=== PATIENT | female | born 1955 | race Two or more races ===

== ENCOUNTER 2020-05-04 08:58 | Outpatient (REF) | payer MEDICARE, MEDICAID, SELFPAY ==
--- NOTE | 2020-05-04 09:06 | MM_ITS ---
EXAMINATION: MM SCREENING DIGITAL BREAST TOMOSYNTHESIS, BILATERAL CLINICAL INFORMATION: Screening. Asymptomatic. The lifetime risk of breast cancer based on the Tyrer-Cuzick Model is 4.0%. COMPARISON: Mammography: April 29, 2019 and studies dating back to May 21, 2013 TECHNIQUE: Digital breast tomosynthesis is performed in both the craniocaudal and mediolateral oblique views along with computer-aided detection (CAD). Synthesized 2D images are generated from the tomosynthesis. FINDINGS: The breasts are almost entirely fatty (ACR BI-RADS breast composition Category a). There are no significant masses, abnormal calcifications, or other abnormalities. MM/MM tomosynthesis screening BI IMPRESSION: There are no significant changes from prior study. ASSESSMENT: BI-RADS 1: Negative RECOMMENDATION: Routine annual mammography screening. This patient's information was entered into a reminder system with a target due date for their next mammogram.
== END 2020-05-04 08:59 | disposition home or self-care (01) ==
LOC: HO.MAMMO 08:58
PROVIDERS: PCP Internal Medicine; Visit Provider Internal Medicine
DX: Z12.31 Encounter for screening mammogram for malignant neoplasm of breast (principal)
CPT/HCPCS: 77063; 77067

== ENCOUNTER → 2020-05-11 11:26 | Outpatient (BNVA) | payer MEDICARE, MEDICAID, SELFPAY | PROVIDERS: PCP Internal Medicine; Visit Provider Nurse Practitioner Gerontology | DX: E11.65 Type 2 diabetes mellitus with hyperglycemia (principal); Z79.4 Long term (current) use of insulin; E78.5 Hyperlipidemia, unspecified; I10 Essential (primary) hypertension; E66.9 Obesity, unspecified; Z68.35 Body mass index [BMI] 35.0-35.9, adult | CPT/HCPCS: 82947; 99212 ==

== ENCOUNTER → 2020-05-25 08:15 | Outpatient (BNVA) | payer MEDICARE, MEDICAID, SELFPAY | PROVIDERS: PCP Internal Medicine; Referring Provider Internal Medicine; Visit Provider Internal Medicine Endocrinology, Diabetes & Metabolism | DX: E11.649 Type 2 diabetes mellitus with hypoglycemia without coma (principal); Z79.4 Long term (current) use of insulin; E89.0 Postprocedural hypothyroidism; E21.3 Hyperparathyroidism, unspecified; E55.9 Vitamin D deficiency, unspecified; E78.5 Hyperlipidemia, unspecified; I10 Essential (primary) hypertension; Z85.850 Personal history of malignant neoplasm of thyroid; Z79.899 Other long term (current) drug therapy | CPT/HCPCS: 82947; 99212 ==

== ENCOUNTER 2020-05-25 09:55 | Outpatient (REF) | payer MEDICARE, MEDICAID, SELFPAY ==
[2020-05-25 14:02] LABS: Hematocrit 36.5 % (37-47); Hemoglobin 10.3 g/dl (12.0-16.0); Mean Corpuscular HGB Conc 28.2 g/dl (31.0-35.0); Mean Corpuscular Hemoglobin 18.2 pg (27.0-33.0); Mean Platelet Volume 11.1 fL (9.4-12.3); Platelet Count 394 X10*3/uL (160-400); Red Blood Count 5.67 X10*6/uL (4.20-5.50); Red Cell Distribution Width 16.9 % (11.0-16.0); White Blood Count 8.2 X10*3/uL (4.8-10.8)
[2020-05-25 14:05] LABS: Mean Corpuscular Volume 64.4 fL (80-98); PLT ABN DIST 1
[2020-05-25 14:19] LABS: Alanine Aminotransferase 8 U/L (0-31); Albumin Level 3.7 g/dL (3.5-5.0); Alkaline Phosphatase 133 U/L (39-117); Anion Gap 14 (12-20); Aspartate Amino Transferase 14 U/L (5-31); Bilirubin Total 0.3 mg/dL (0.0-1.0); Blood Urea Nitrogen 9 mg/dL (9-16); Calcium 9.3 mg/dL (8.4-10.2); Carbon Dioxide 31 mmol/L (22-29); Chloride 103 mmol/L (96-108); Cholesterol 186 mg/dL; Estimated Glomerular Filt Rate > 60; Glucose Fasting 110 mg/dL (60-99); HDL Cholesterol 41 mg/dL; LDL Cholesterol Calculated 127 mg/dl; Potassium 4.8 mmol/l (3.3-5.1); Sodium 143 mmol/L (135-145); Total Protein 6.9 g/dL (6.5-8.0); Triglycerides 94 mg/dL
[2020-05-25 14:38] LABS: Creatinine Urine 126.19 mg/dL; Microalbum/Creatinine Ratio Ur 12.6 ug/mg cr
[2020-05-25 14:40] LABS: Vitamin B12 372 pg/mL (200-900)
[2020-05-25 14:42] LABS: Free T4 (Free Thyroxine) 1.32 ng/dL (0.71-1.85); Vitamin D 25-OH Total 50.3 ng/mL (>30)
[2020-05-26 14:03] LABS: Calcium (PTHI) 9.5 mg/dL (8.6-10.4); PTHI 32 pg/mL (14-64)
[2020-05-26 20:12] LABS: LDL Cholesterol Direct 139 mg/dL (<100)
[2020-05-29 06:42] LABS: Thyroglobulin Antibody <1 IU/mL (<=1); Thyroglobulin Level <0.1 ng/mL
[2020-05-30 00:47] LABS: VITAMIN D (1,25 OH) D3 29 pg/mL; Vit D (1,25-Dihydroxy) Total 29 pg/mL (18-72); Vitamin D (1,25 OH) D2 <8 pg/mL
[2020-06-01 06:17] LABS: Fructosamine 260 umol/L (205-285)
== END 2020-05-25 09:56 | disposition home or self-care (01) ==
LOC: HO.10HDL 09:55
PROVIDERS: Visit Provider Internal Medicine Endocrinology, Diabetes & Metabolism
DX: C73 Malignant neoplasm of thyroid gland (principal); E21.3 Hyperparathyroidism, unspecified; E55.9 Vitamin D deficiency, unspecified; E11.65 Type 2 diabetes mellitus with hyperglycemia
CPT/HCPCS: 36415; 80053; 80061; 82043; 82306; 82607; 82652; 82985; 83721; 83970; 84432; 84439; 84443; 85027; 86800

== ENCOUNTER → 2020-08-25 09:57 | Outpatient (BNVA) | payer MEDICARE, MEDICAID, SELFPAY | PROVIDERS: PCP Internal Medicine; Visit Provider Internal Medicine Endocrinology, Diabetes & Metabolism | DX: C73 Malignant neoplasm of thyroid gland (principal); E11.65 Type 2 diabetes mellitus with hyperglycemia; E11.649 Type 2 diabetes mellitus with hypoglycemia without coma; Z79.4 Long term (current) use of insulin; E78.5 Hyperlipidemia, unspecified; E89.0 Postprocedural hypothyroidism; E66.9 Obesity, unspecified; E21.3 Hyperparathyroidism, unspecified; E55.9 Vitamin D deficiency, unspecified | CPT/HCPCS: 82947; 99212 ==

== ENCOUNTER 2020-09-07 12:44 | Outpatient (REF) | payer MEDICARE, MEDICAID, SELFPAY ==
[2020-09-07 14:43] LABS: Free T4 (Free Thyroxine) 0.48 ng/dL (0.71-1.85); Thyroid Stimulating Hormone 12.85 uIU/mL (0.32-4.0)
[2020-09-07 14:50] LABS: Alanine Aminotransferase 12 U/L (0-31); Alkaline Phosphatase 118 U/L (39-117); Anion Gap 15 (12-20); Aspartate Amino Transferase 20 U/L (5-31); Bilirubin Total < 0.2 mg/dL (0.0-1.0); Blood Urea Nitrogen 9 mg/dL (9-16); Calcium 9.4 mg/dL (8.4-10.2); Carbon Dioxide 28 mmol/L (22-29); Chloride 104 mmol/L (96-108); Cholesterol 187 mg/dL; Estimated Glomerular Filt Rate 53; Glucose Fasting 184 mg/dL (60-99); HDL Cholesterol 44 mg/dL; LDL Cholesterol Calculated 123 mg/dl; Potassium 4.1 mmol/L (3.3-5.1); Sodium 143 mmol/L (135-145); Total Protein 7.5 g/dL (6.5-8.0); Triglycerides 101 mg/dL
[2020-09-08 11:22] LABS: LDL Cholesterol Direct 128 mg/dL (<100)
== END 2020-09-07 12:45 | disposition home or self-care (01) ==
LOC: HO.LAB 12:44
PROVIDERS: PCP Internal Medicine; Visit Provider Internal Medicine Endocrinology, Diabetes & Metabolism
DX: C73 Malignant neoplasm of thyroid gland (principal)
CPT/HCPCS: 36415; 80053; 80061; 83721; 84439; 84443; 96372

== ENCOUNTER 2020-09-20 12:50 | Outpatient (REF) | payer MEDICARE, MEDICAID, SELFPAY ==
[2020-09-20 15:42] LABS: Thyroid Stimulating Hormone 30.16 uIU/mL (0.32-4.0)
[2020-09-20 15:43] LABS: Free T4 (Free Thyroxine) 0.51 ng/dL (0.71-1.85)
[2020-09-24 07:22] LABS: Thyroglobulin Antibody <1 IU/mL (<=1); Thyroglobulin Level 0.6 ng/mL
== END 2020-09-20 12:51 | disposition home or self-care (01) ==
LOC: HO.LAB 12:50
PROVIDERS: Internal Medicine; PCP Internal Medicine; Visit Provider Internal Medicine Endocrinology, Diabetes & Metabolism
DX: E11.65 Type 2 diabetes mellitus with hyperglycemia (principal); E11.649 Type 2 diabetes mellitus with hypoglycemia without coma; C73 Malignant neoplasm of thyroid gland; I48.91 Unspecified atrial fibrillation; E78.5 Hyperlipidemia, unspecified; I10 Essential (primary) hypertension; E89.0 Postprocedural hypothyroidism; E66.9 Obesity, unspecified; E21.3 Hyperparathyroidism, unspecified; E55.9 Vitamin D deficiency, unspecified; Z79.899 Other long term (current) drug therapy; Z79.4 Long term (current) use of insulin
CPT/HCPCS: 36415; 82947; 84432; 84439; 84443; 86800; 99212

== ENCOUNTER → 2020-10-06 09:48 | Outpatient (BNVA) | payer MEDICARE, MEDICAID, SELFPAY | PROVIDERS: PCP Internal Medicine; Visit Provider Hospitalist | DX: J45.20 Mild intermittent asthma, uncomplicated (principal); J18.9 Pneumonia, unspecified organism; J90 Pleural effusion, not elsewhere classified; I31.3 Pericardial effusion (noninflammatory); Z79.899 Other long term (current) drug therapy | CPT/HCPCS: 99202 ==

== ENCOUNTER → 2020-10-27 10:19 | Outpatient (BNVA) | payer MEDICARE, MEDICAID, SELFPAY | PROVIDERS: PCP Internal Medicine; Visit Provider Hospitalist | DX: J45.20 Mild intermittent asthma, uncomplicated (principal); I31.3 Pericardial effusion (noninflammatory); J18.9 Pneumonia, unspecified organism; J90 Pleural effusion, not elsewhere classified | CPT/HCPCS: 99212 ==

== ENCOUNTER 2020-11-04 12:14 | Outpatient (REF) | payer MEDICARE, MEDICAID, SELFPAY ==
--- NOTE | ~2020-11-04 | XR_ITS ---
EXAMINATION: XR CHEST CLINICAL INFORMATION: Pericardial effusion COMPARISON: Chest 09/18/2018. TECHNIQUE: 2 views of the chest were obtained. FINDINGS: The lungs are well-expanded and clear of acute process. The heart size and pulmonary vascularity is normal. There is moderate spondylosis of dorsal spine. No lytic process. XR/XR chest 2V IMPRESSION: Unremarkable chest exam.
[2020-11-04 14:17] LABS: Thyroid Stimulating Hormone 3.62 uIU/mL (0.32-4.0)
[2020-11-04 14:22] LABS: SARS COV2 IgG Positive (Negative)
[2020-11-04 14:35] LABS: Erythrocyte Sedimentation Rate 23 MM/HR (0-20)
[2020-11-06 14:01] LABS: Anti Nuclear Antibody Screen NEGATIVE (NEGATIVE)
[2020-11-07 17:46] LABS: Cyclic Citrullinated Peptide <16 UNITS
[2020-11-17 23:02] LABS: Angiotensin Converting Enzyme 6 U/L (9-67)
== END 2020-11-04 12:15 | disposition home or self-care (01) ==
LOC: HO.LAB 12:14
PROVIDERS: Internal Medicine Endocrinology, Diabetes & Metabolism; PCP Internal Medicine; Visit Provider Hospitalist
DX: I31.3 Pericardial effusion (noninflammatory) (principal); J18.9 Pneumonia, unspecified organism; J90 Pleural effusion, not elsewhere classified; C73 Malignant neoplasm of thyroid gland; Z20.822 Contact with and (suspected) exposure to COVID-19
CPT/HCPCS: 36415; 71046; 82164; 84443; 85652; 86038; 86039; 86200; 86769

== ENCOUNTER → 2020-11-19 11:20 | Outpatient (BNVA) | payer MEDICARE, MEDICAID, SELFPAY | PROVIDERS: PCP Internal Medicine; Visit Provider Internal Medicine Endocrinology, Diabetes & Metabolism | DX: C73 Malignant neoplasm of thyroid gland (principal); E11.65 Type 2 diabetes mellitus with hyperglycemia; E11.649 Type 2 diabetes mellitus with hypoglycemia without coma; E78.5 Hyperlipidemia, unspecified; I10 Essential (primary) hypertension; E89.0 Postprocedural hypothyroidism; E66.9 Obesity, unspecified; E21.3 Hyperparathyroidism, unspecified; E55.9 Vitamin D deficiency, unspecified; Z79.4 Long term (current) use of insulin | CPT/HCPCS: 82947; 99212 ==

== ENCOUNTER → 2021-03-21 13:06 | Outpatient (REF) | payer MEDICARE, MEDICAID, SELFPAY ==
--- NOTE | 2021-03-21 13:10 | CA_ITS ---
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 Normal LV systolic function 2. Moderately dilated left atrium 3. Mild mitral regurgitation with moderate mitral and calcification 4. Normal RV systolic pressure 5. Trivial pericardial effusion Findings Left Ventricle Normal left ventricular size, thickness, and systolic function. The visually estimated ejection fraction is between 55-60%. Diastolic function is indeterminate on the basis of available data. Right Ventricle The right ventricle was not well visualized. Atria The left atrium is moderately dilated. There is lipomatous hypertrophy of the interatrial septum. Interatrial shunt cannot be excluded. The right atrium was not well visualized. Aortic Valve The aortic valve was not well visualized. There is no aortic valve stenosis. There is no aortic valve regurgitation. Mitral Valve There is mild anterior and moderate posterior mitral leaflet thickening. There is moderate mitral annular calcification. There is mild mitral valve regurgitation. There is no mitral valve stenosis. Pulmonic Valve The pulmonic valve was not well visualized. Tricuspid Valve The tricuspid valve was not well visualized. There is trace tricuspid valve regurgitation. The right ventricular systolic pressure is normal. The right ventricular systolic pressure is 25 mmHg. Normal right atrial pressure. There is no evidence of pulmonary hypertension. Great Vessels The pulmonary artery was not well visualized. There is no dilatation of the ascending aorta. Small plaque is seen in the sino tubular ridge. Venous The inferior vena cava is normal in size and collapses greater than 50% with inspiration. Pericardium/Pleural There is a trivial pericardial effusion. Measurements 2D Linear Measurements IVSd: 1.24 0.6-0.9/0.6-1.0 cm LVIDd: 5.16 3.9-5.3/4.2-5.9 cm LVIDd Index: 2.77 2.4-3.2/2.2-3.1 cm/m2 LVIDs: 3.76 2.0-3.6 cm LVPWd: 1.05 0.7-1.1 cm Ao Root: 2.90 2.1-3.5 cm LA Diam: 4.50 2.7-3.8/3.0-4.0 cm LAIDs Index: 2.42 1.5-2.3 cm/m2 LV Mass: 287.15 67-162/88-224 g LV Mass Index: 154.38 43-95/49-115 g/m2 LVOT Diam: 2.00 3.0+(-)1.3 cm 2D Systolic Function EF 4C: 57.90 >55% EF 2C: 58.40 >55% EF BiP: 57.80 >55% Mitral Valve E'Lateral: 7.62 E'Medial: 6.20 Aortic Valve AoV Pk Rafael: 0.92 AoV Mn Rafael: 0.76 AoV VTI: 0.19 AoV Pk Grad: 3.00 Aov Mn Grad: 2.00 REBEKAH Cont.VTI: 2.07 LVOT LVOT Pk Rafael: 0.66 LVOT Mn Rafael: 0.44 LVOT VTI: 0.13 LVOT Pk Grad: 2.00 LVOT Mn Grad: 1.00 LVOT Diam: 2.00 LVOT Area: 3.14 Diastolic Function E'Medial: 6.20 E' Laterial: 7.62 Right Ventricle TAPSE (mm): 1.93 TVS' Rafael: 9.68 Tricuspid Valve TR Pk Rafael: 2.35 TR Pk Grad: 22.00 RA Press: 3.00 RVSP: 25.00 Great Vessels Aorta Ao Root-2D: 2.90 2.0-3.7 cm Ao Asc: 3.00 2.1-3.4 cm Ao Arch: 2.50 Updated in Other Vendor System with Status of Final Emmanuel Pemberton MD electronically signed on 03/22/2021 9:04:28 AM with status of Final
== END ==
LOC: HO.CARD 13:06
PROVIDERS: Visit Provider Hospitalist
DX: I27.20 Pulmonary hypertension, unspecified (principal); I31.3 Pericardial effusion (noninflammatory); J18.9 Pneumonia, unspecified organism; J90 Pleural effusion, not elsewhere classified
CPT/HCPCS: 93306

== ENCOUNTER 2021-05-27 12:50 | Outpatient (REF) | payer MEDICARE, MEDICAID, SELFPAY | END 2021-05-27 12:51 | disposition home or self-care (01) | LOC: HO.LAB 12:50 | PROVIDERS: PCP Internal Medicine; Visit Provider Internal Medicine | DX: Z20.822 Contact with and (suspected) exposure to COVID-19 (principal) | CPT/HCPCS: C9803; U0003; U0005 ==

== ENCOUNTER → 2021-11-30 10:05 | Outpatient (BNVA) | payer MEDICARE, MEDICAID, SELFPAY | PROVIDERS: PCP Internal Medicine; Visit Provider Internal Medicine Endocrinology, Diabetes & Metabolism | DX: E11.65 Type 2 diabetes mellitus with hyperglycemia (principal); C73 Malignant neoplasm of thyroid gland; Z79.4 Long term (current) use of insulin; Z79.84 Long term (current) use of oral hypoglycemic drugs | CPT/HCPCS: 82947; 83036; 99212 ==

== ENCOUNTER → 2021-12-28 09:57 | Outpatient (BNVA) | payer MEDICARE, MEDICAID, SELFPAY | PROVIDERS: PCP Internal Medicine; Visit Provider Registered Nurse Diabetes Educator | DX: E11.649 Type 2 diabetes mellitus with hypoglycemia without coma (principal) | CPT/HCPCS: 99211 ==

== ENCOUNTER 2022-01-06 22:12 | Emergency (ER) | payer MEDICARE, MEDICAID, SELFPAY ==
--- NOTE | ~2022-01-06 | XR_ITS ---
EXAMINATION: XR KNEE, RIGHT CLINICAL INFORMATION: Pain. COMPARISON: Right knee 11/13/2016 TECHNIQUE: Four views of the right knee. FINDINGS: No fracture. No dislocation. No joint effusion. Tricompartment moderate degenerative joint disease of joint narrowing and marginal bone spurs. Compared to prior study of 2017 no substantial change. XR/XR knee RT 4V IMPRESSION: 1. No acute abnormality. 2. Moderate tricompartment degenerative arthritis.
[2022-01-06 22:15] VITALS: BP 144/82; BP 218/59; PULSE 64; PULSE 66; RESP 18; TEMP 36.4; O2SAT 95; O2SAT 96; BMI 37.8
--- NOTE | 2022-01-06 23:01 | ED.LOWEXIN ---
HPI - Extremity Injury (Lower) General Chief Complaint: Extremity Injury, Lower Stated Complaint: leg pain Time Seen by Provider: 01/06/22 23:00 Source: patient and diplomatic interpreter/translator Mode of arrival: ambulatory History of Present Illness HPI Narrative: 66-year-old female who presents with being it being go and states that she was sitting and went to reposition her leg stating that she twisted her right knee which resulted in significant pain that radiated distal into her ankle. Patient is currently on anticoagulation for underlying thyroid malignancy and otherwise denies any other injuries at this time to the knee and states that it has actually started to feel somewhat better at this time. Related Data Home Medications Medication Instructions Recorded Confirmed alcohol swabs 1 pad topical diabetes mellitus 05/11/20 11/19/20 gabapentin 100 mg capsule 100 mg PO TID 05/11/20 11/30/21 lancets 28 gauge #100 ea 05/11/20 11/19/20 sertraline 25 mg tablet 25 mg PO DAILY 05/11/20 11/19/20 docusate sodium 100 mg capsule 100 mg PO DAILY 05/25/20 11/19/20 (Colace) trazodone 100 mg tablet 100 mg PO BEDTIME sleep 05/25/20 11/19/20 escitalopram oxalate 10 mg tablet 10 mg PO DAILY 08/25/20 11/19/20 albuterol sulfate mg inhalation Q6H 10/06/20 11/19/20 hydroxyzine HCl 25 mg tablet 25 mg PO DAILY 10/06/20 11/19/20 ibuprofen 400 mg tablet 400 mg PO Q6H PRN pain 10/06/20 11/19/20 rivaroxaban 20 mg tablet 20 mg PO DAILY 11/19/20 11/19/20 amiodarone 200 mg tablet 200 mg PO DAILY 11/30/21 11/30/21 apixaban 5 mg tablet (Eliquis) 5 mg PO BID 11/30/21 11/30/21 blood-glucose meter (OneTouch #1 ea 11/30/21 11/30/21 Ultra2 Meter) furosemide 20 mg tablet 20 mg PO DAILY 11/30/21 11/30/21 lancets 33 gauge (OneTouch Delica #100 ea 11/30/21 11/30/21 Lancets) metoprolol succinate 100 mg 100 mg PO DAILY 11/30/21 11/30/21 tablet,extended release 24 hr Previous Rx's Medication Instructions Recorded blood sugar diagnostic (Contour #120 ea 05/05/20 Next Test Strips) lancets 32 gauge (Easy Touch #120 ea 05/05/20 Lancets) lisinopril 10 mg tablet 10 mg PO DAILY 90 days #90 tabs 05/25/20 metoprolol tartrate 50 mg tablet 50 mg PO BID 90 days #180 tabs 05/25/20 pen needle, diabetic 32 gauge x 1 ea subcut DAILY 30 days #30 ea 11/04/20 (Comfort EZ Pen [place]) ezetimibe 10 mg tablet 10 mg PO DAILY 90 days #90 tabs 11/19/20 metformin 500 mg tablet,extended 500 mg PO BID 90 days #180 tabs 11/19/20 release 24 hr blood sugar diagnostic (FreeStyle #100 ea 03/02/21 Lite Strips) blood-glucose meter (FreeStyle #1 ea 03/03/21 Lite Meter) amlodipine 5 mg tablet 5 mg PO DAILY #90 tabs 06/03/21 albuterol sulfate 90 mcg/actuation 2 puff inhalation Q6H PRN for 11/22/21 aerosol inhaler wheezing #8.5 grams dulaglutide 3 mg/0.5 mL 3 mg (0.5 mL) subcut QWEEK 90 days 12/09/21 subcutaneous pen injector #2 mL (Trulicity) insulin degludec 100 unit/mL (3 20 unit (0.2 mL) subcut QAM 90 12/09/21 mL) subcutaneous pen days #18 mL cholecalciferol (vitamin D3) 50 50 mcg PO DAILY #30 caps 12/20/21 mcg (2,000 unit) capsule (D3-2000) levothyroxine 88 mcg tablet 88 mcg PO DAILY 90 days #112 tabs 12/23/21 rosuvastatin 40 mg tablet 40 mg PO DAILY 90 days #90 tabs 12/23/21 Allergies Allergy/AdvReac Type Severity Reaction Status Date / Time empagliflozin Allergy Intermediate ITCHY/RASH Verified 11/30/21 10:12 [From JARDIANCE] JARDIANCE Allergy Intermediate pruritus Uncoded 11/30/21 10:12 Review of Systems Review of Systems: Pertinent positives and negatives as stated in HPI 10 point review of systems is otherwise negative. 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 Mother Arthritis Social History Social History Household Members: None Patient Tobacco Use Status: Never used Tobacco Advance Directives: No Advance Directives Information Provided: No Physical Exam Vital Signs: Vital Signs: Last Vital Signs Temp 97.5 F 01/06/22 22:15 Pulse 56 01/06/22 23:31 Resp 14 01/06/22 23:31 BP 166/74 H 01/06/22 23:31 Pulse Ox 97 01/06/22 23:31 O2 Del Method 01/06/22 23:31 BMI result Body Mass Index 37.8 VITAL SIGNS: Reviewed. GENERAL: Elevated BMI, Well developed, well nourished, in no acute distress. HEAD: Normocephalic/atraumatic, EYES: PERRLA, EOMI EARS: Ext canals without abnormality OROPHARYNX: no oral lesions noted, posterior pharynx clear LUNGS: Normal breath sounds. No adventitious sounds or accessory muscle use. SpO2<97> CARDIOVASCULAR: Regular rate and rhythm without noted murmurs, no JVD or lower extremity edema. ABDOMEN: Soft, non-tender, non-distended with bowel sounds. MUSCULOSKELETAL: No tenderness, deformities, or effusions noted on gross inspection. EXTREMITIES: No cyanosis, clubbing or edema; RIGHT KNEE: No erythema, induration, or swelling noted, there is mild tenderness on palpation over the MCL/LCL but no pain over patellar or within the popliteal fossa. No palpable Farah cyst noted on palpation over the popliteal fossa and otherwise neurovascular is intact distal SKIN: Inspection of the skin reveals no rashes NEUROLOGIC: Alert and oriented x 4. Strength and sensation to light touch were grossly intact x 4. Course Course Course Narrative: 66-year-old female with history and clinical presentation given the acute nature most consistent with mild twisting motion when she attempted to stand. Low clinical suspicion for ruptured Farah cyst and no clinical evidence or suspicion for DVT. Patient was provided with Tylenol, Soto wrap and on review of the x-ray there are no acute findings and instead demonstration of moderate try compartment degenerative arthritis. Patient was informed of all results and discharged home in stable condition and noted to be able to ambulate. Discharge Plan Discharge Clinical Impression: Knee pain, right, Osteoarthritis of right knee Patient Disposition: Home, Self-Care Instructions: Knee Pain (ED), Osteoarthritis (ED) Additional Instructions: 1. Reanudar todos los medicamentos caseros seg?n lo prescrito. 2. Contin?e con Tylenol 1000 mg, por v?a oral, cada 6 horas seg?n sea necesario para controlar el dolor. No exceda los 4000 mg dentro de las 24 horas. 3. Mantenga la venda Soto en simental lugar hasta que simental proveedor de atenci?n primaria lo eval?e nuevamente el lunes por la ma?krish. Regrese a la saima de emergencias si los s?ntomas empeoran. Prescriptions: No Action (DME) Contour Next Test Strips Strip See Rx Instructions .ROUTE .MEDSUPPLY Qty: 120 6RF Rx Instructions: 4 times a day (DME) Easy Touch Lancets 32 gauge misc See Rx Instructions .ROUTE .MEDSUPPLY Qty: 120 6RF Rx Instructions: 4 times a day pen needle, diabetic [Comfort EZ Pen [place]] 32 gauge x 5/32 needle 1 ea subcut DAILY 30 Days Qty: 30 7RF (DME) FreeStyle Lite Strips Strip See Rx Instructions .ROUTE .MEDSUPPLY Qty: 100 11RF Rx Instructions: 4x daily (DME) blood-glucose meter [FreeStyle Lite Meter] Kit See Rx Instructions .Route Qty: 1 0RF Rx Instructions: As directed amlodipine 5 mg tablet 5 mg PO DAILY Qty: 90 1RF albuterol sulfate 90 mcg/actuation HFA aerosol inhaler 2 puff inhalation Q6H PRN (Reason: for wheezing) Qty: 8.5 11RF Trulicity 3 mg/0.5 mL pen injector 3 mg subcut QWEEK 90 Days Qty: 2 4RF Rx Instructions: Dose increased to 3 mg weekly. insulin degludec 100 unit/mL (3 mL) insulin pen 20 unit subcut QAM 90 Days Qty: 18 1RF cholecalciferol (vitamin D3) [D3-2000] 50 mcg (2,000 unit) capsule 50 mcg PO DAILY Qty: 30 8RF rosuvastatin 40 mg tablet 40 mg PO DAILY 90 Days Qty: 90 2RF levothyroxine 88 mcg tablet 88 mcg PO DAILY 90 Days Qty: 112 1RF Rx Instructions: One tablet Sunday through Sunday 1.5 tablets Sundays sertraline 25 mg tablet 25 mg PO DAILY alcohol swabs Pads, Medicated 1 pad topical gabapentin 100 mg capsule 100 mg PO TID (DME) lancets 28 gauge misc See Rx Instructions .ROUTE QID Qty: 100 Rx Instructions: As directed rivaroxaban 20 mg tablet 20 mg PO DAILY docusate sodium [Colace] 100 mg capsule 100 mg PO DAILY trazodone 100 mg tablet 100 mg PO BEDTIME lisinopril 10 mg tablet 10 mg PO DAILY 90 Days Qty: 90 2RF metoprolol tartrate 50 mg tablet 50 mg PO BID 90 Days Qty: 180 2RF Rx Instructions: Needs cardiology visit before more refills given escitalopram oxalate 10 mg tablet 10 mg PO DAILY ezetimibe 10 mg tablet 10 mg PO DAILY 90 Days Qty: 90 2RF metformin 500 mg tablet extended release 24 hr 500 mg PO BID 90 Days Qty: 180 1RF albuterol sulfate 2.5 mg /3 mL (0.083 %) solution for nebulization inhalation Q6H ibuprofen 400 mg tablet 400 mg PO Q6H PRN (Reason: pain) hydroxyzine HCl 25 mg tablet 25 mg PO DAILY metoprolol succinate 100 mg tablet extended release 24 hr 100 mg PO DAILY furosemide 20 mg tablet 20 mg PO DAILY Eliquis 5 mg tablet 5 mg PO BID (DME) blood-glucose meter [Coloraderdamuch Ultra2 Meter] Mis See Rx Instructions Not Applicable DAILY Qty: 1 Rx Instructions: As directed (DME) lancets [OneTouch Delica Lancets] 33 gauge misc See Rx Instructions topical QID Qty: 100 Rx Instructions: As directed amiodarone 200 mg tablet 200 mg PO DAILY Print Language: Peruvian
[2022-01-06 23:31] VITALS: BP 166/74; PULSE 56; RESP 14; O2SAT 97
[2022-01-06] MEDS: Acetaminophen 325 MG TABLET 975 MG PO (23:33)
== END 2022-01-07 00:21 | disposition home or self-care (01) ==
PROVIDERS: Emergency Provider Student in an Organized Health Care Education/Training Program; PCP Student in an Organized Health Care Education/Training Program
DX: M25.561 Pain in right knee (principal); M17.11 Unilateral primary osteoarthritis, right knee; E11.9 Type 2 diabetes mellitus without complications; I10 Essential (primary) hypertension; E78.5 Hyperlipidemia, unspecified; Z79.4 Long term (current) use of insulin
CPT/HCPCS: 73564; 99283; 99284

== ENCOUNTER → 2022-01-11 10:56 | Outpatient (BNVA) | payer MEDICARE, MEDICAID, SELFPAY | PROVIDERS: PCP Student in an Organized Health Care Education/Training Program; Visit Provider Dietitian, Registered | DX: E11.65 Type 2 diabetes mellitus with hyperglycemia (principal); Z79.4 Long term (current) use of insulin; Z71.3 Dietary counseling and surveillance | CPT/HCPCS: 97802 ==

== ENCOUNTER 2022-03-16 08:35 | Outpatient (REF) | payer MEDICARE, MEDICAID, SELFPAY | END 2022-03-16 08:36 | disposition home or self-care (01) | LOC: HO.HOSX 08:35 | PROVIDERS: Visit Provider Physician Assistant | DX: Z13.89 Encounter for screening for other disorder (principal) ==

== ENCOUNTER 2022-04-03 08:44 | Outpatient (REF) | payer MEDICARE, MEDICAID, SELFPAY ==
--- NOTE | ~2022-04-03 | US_ITS ---
EXAMINATION: US SOFT TISSUE HEAD/NECK CLINICAL INFORMATION: Status post thyroidectomy. History of thyroid cancer. COMPARISON: Ultrasound soft tissue 03/17/2019. TECHNIQUE: Ultrasound of the neck soft tissues is performed with high-frequency gamez-scale imaging and color Doppler. FINDINGS: THYROID BED: Prior thyroidectomy. No residual thyroid tissue demonstrated in the thyroid bed. No cystic or solid nodules demonstrated in the thyroid bed. RIGHT NECK SOFT TISSUES: Scattered architecturally normal nodes are present. The nodes show normal fatty hilus, normal cortical thickness, and no cystic change or calcification. No abnormal color-flow. The largest nodes are as follows: Level 3: 0.6 x 0.6 x 0.5 cm. Normal johnny architecture. Previous 1.0 0.2 x 0.8 cm. Level 3: 0.5 x 0.4 x 0.4 cm. Normal johnny architecture. Not seen previously. Level 3: 0.7 x 0.5 x 0.5 cm. Normal johnny architecture. Not seen previously. Level 5A: 1.0 x 0.3 x 0.6 cm. Normal johnny architecture. Previous 0.6 x 0.3 x 0.3 cm. LEFT NECK SOFT TISSUES: Scattered architecturally normal nodes are present. The nodes show normal fatty hilus, normal cortical thickness, and no cystic change or calcification. No abnormal color-flow. The largest nodes are as follows: Level 1B: 0.5 x 0.3 x 0.5 cm. Normal johnny architecture. Not seen previously. Level 2: 0.4 x 0.3 x 0.8 cm. Normal johnny architecture. Previous 1.3 x 0.6 x 1.3 cm. Level 3: 0.7 x 0.3 x 1.1 cm. Normal johnny architecture. Not seen previously. Level 3: 0.9 x 0.6 x 0.9 cm. Normal johnny architecture. Previous 0.9 x 0.5 x 1.0 cm. Level 3: 0.7 x 0.4 x 0.6. Normal johnny architecture. Not seen previously. Level 5B: 1.5 x 0.5 x 1.0 cm. Normal johnny architecture. Previous 0.4 x 0.2 x 0.5 cm. US/US soft tiss head and/or neck IMPRESSION: 1. Total thyroidectomy with no residual thyroid tissue seen. Multiple benign neck lymph nodes. 2. If clinically indicated, further evaluation of the neck soft tissues and nodes may be performed with CT soft tissue neck with intravenous contrast.
[2022-04-03 12:20] LABS: Anion Gap 18 (12-20); Blood Urea Nitrogen 7 mg/dL (9-16); Calcium 9.1 mg/dL (8.4-10.2); Carbon Dioxide 27 mmol/L (22-29); Chloride 101 mmol/L (96-108); Cholesterol 153 mg/dL; Estimated Glomerular Filt Rate > 60; Glucose Random 125 mg/dL (60-115); HDL Cholesterol 45 mg/dL; LDL Cholesterol Calculated 95 mg/dl; Potassium 4.1 mmol/L (3.3-5.1); Sodium 142 mmol/L (135-145); Triglycerides 68 mg/dL
[2022-04-03 12:34] LABS: Free T4 (Free Thyroxine) 1.51 ng/dL (0.71-1.85)
[2022-04-03 12:38] LABS: Microalbum/Creatinine Ratio Ur 7.5 ug/mg cr
[2022-04-03 13:05] LABS: Thyroid Stimulating Hormone 5.82 uIU/mL (0.32-4.0)
[2022-04-04 17:57] LABS: Thyroglobulin Antibodies <1 IU/mL (< or = 1)
[2022-04-06 06:22] LABS: Thyroglobulin Antibody <1 IU/mL (<=1); Thyroglobulin Level 0.1 ng/mL
== END 2022-04-03 08:45 | disposition home or self-care (01) ==
LOC: HO.US 08:44
PROVIDERS: Visit Provider Internal Medicine Endocrinology, Diabetes & Metabolism
DX: E04.2 Nontoxic multinodular goiter (principal); C73 Malignant neoplasm of thyroid gland; E11.65 Type 2 diabetes mellitus with hyperglycemia
CPT/HCPCS: 36415; 76536; 80048; 80061; 82043; 84432; 84439; 84443; 86800

== ENCOUNTER → 2022-04-11 11:46 | Outpatient (BNVA) | payer MEDICARE, MEDICAID, SELFPAY | PROVIDERS: PCP Student in an Organized Health Care Education/Training Program; Visit Provider Internal Medicine Endocrinology, Diabetes & Metabolism | DX: E11.65 Type 2 diabetes mellitus with hyperglycemia (principal); C73 Malignant neoplasm of thyroid gland | CPT/HCPCS: 82947; 83036; 99212 ==

== ENCOUNTER 2022-04-11 20:59 | Emergency (ER) | payer MEDICARE, MEDICAID, SELFPAY ==
[2022-04-11 21:10] VITALS: BP 137/52; PULSE 64; O2SAT 100
[2022-04-11 21:16] VITALS: BP 181/64; PULSE 60; RESP 18; TEMP 36.7; O2SAT 97; BMI 34.0
[2022-04-11 23:50] VITALS: BP 176/74; BP 187/74; PULSE 65; RESP 18; O2SAT 96
--- OUTSIDE RECORDS SUMMARY | 2022-04-11 23:56 | XMS_ITS | Continuity of Care Document ---
:1955 Author Organization [facility] Address [address] [place] [id number]- Care Team Providers Name Role Phone Ganesh Alvarado MD Primary Care Physician Encounter [facility] Date(s): 01/18/22 - 02/17/22 [facility] [place] [facility] [address] [place] [address]- Attending Physician: Loc Brasher Admitting Physician: Loc Brasher Referring Physician: Loc Brasher Allergies, Adverse Reactions, Alerts Substance Reaction Severity Status [id number] Persistent Moderate Active 1years ago Immunizations Not Given Vaccine Date Status Refusal Reason pneumococcal 23-valent vaccine 09/19/20 Not Given P atient Refuses influenza virus vaccine, inactivated 09/19/20 Not Given Patient Refuses Medications Acetaminophen = 650 mg, By Mouth, 3 times a day, 0 Refills, Maintenance, 08/14/19 10:43:00 EST Start Date: 08/14/19 Status: Orderedalbuterol 2.5mg / 3mL (0.083%) (OP) 3 mL = 2.5 mg, Neb, Every 6 hours, PRN Wheezing/Shortness of Breath, 0 Refills, Maintenance Start Date: 08/14/19 Status: Orderedamiodarone 200 mg oral tablet 1, tablet, By Mouth, Daily, # 30 tablet, Refills 5, Route to Pharmacy Electronically, [facility], 155, cm, 05/07/21 3:26:00 EDT, Height, 83.5, kg, 05/06/21 6:24:00 EDT, Dry Weight Start Date: 01/31/22 Status: Orderedamiodarone 200 mg oral tablet 1, tablet, By Mouth, Daily, # 30 tablet, Refills 5, Route to Pharmacy Electronically, [facility], 155, cm, 05/07/21 3:26:00 EDT, Height, 83.5, kg, 05/06/21 6:24:00 EDT, Dry Weight Start Date: 08/02/21 Status: OrderedamLODIPine 5 mg oral tablet TAKE ONE TABLET BY MOUTH DAILY Start Date: 03/31/21 Status: OrderedColace Clear = 100 mg, By Mouth, 2 times a day, 0 Refills, Maintenance, 08/14/19 10:41:00 EST Start Date: 08/14/19 Status: OrderedD3-2000 50 mcg (2,000 unit) capsule TAKE ONE CAPSULE BY MOUTH DAILY Start Date: 03/31/21 Status: OrderedEliquis 5 mg oral tablet See Instructions, TAKE ONE TABLET BY MOUTH two (2) times a day, # 60 tablet, 11 Refills, [facility], 155, cm, 05/07/21 3:26:00 EDT, Height, 83.5, kg, 05/06/21 6:24:00 EDT, Dry Weight Start Date: 08/30/21 Status: OrderedEscitalopram = 10 mg, By Mouth, Daily, 0 Refills, Maintenance, 11/15/20 15:57:00 EDT, Partial fill upon patient request if the prescription is for a schedule II opioid drug. Start Date: 11/15/20 Status: Orderedgabapentin 100 mg oral capsule TAKE ONE CAPSULE BY MOUTH 3 (THREE) TIMES A DAY Start Date: 03/19/19 Status: OrderedHome Blood Pressure Monitor See Instructions, # 1 kit, Refills 0, Tot. Refills 0, Maintenance, Check blood pressure daily after morning blood pressure medications, 11/18/20 15:27:00 EDT, Supply, 158, cm, 11/15/20 15:33:00 EDT, Height, 84, kg, 09/17/20 23:35:00 EDT, Dry Weight Start Date: 11/18/20 Status: OrderedLasix 20 mg oral tablet 20 mg, 1, tablet, By Mouth, Daily, # 90 tablet, Refills 3, Tot. Refills 3, Maintenance, 01/09/22 12:28:00 EDT, Route to Pharmacy Electronically, [place], [place] - [phone], 155, cm,05/07/21 3:26:00 EDT, Height, 83.5, kg, 05/06/21... Start Date: 01/09/22 Stop Date: 01/04/23 Status: Orderedlevothyroxine 0.088 mg oral tablet TAKE ONE TABLET BY MOUTH SUNDAY TO SUNDAY. TAKE 1 & 1/2 TABLETS ON SUNDAY Start Date: 03/19/19 Status: Orderedlidocaine 5% topical film 1 patch, Topically, Daily, PRN Pain , Mild, remove after 12 hours, # 13 each, 0 Refills, Maintenance, 09/16/20 16:48:00 EDT, Film, [facility]/pharmacy #[id number], Partial fill upon patient request if the prescription is for a schedule II opioid drug., 1 patch Top... Start Date: 09/16/20 Status: Orderedlisinopril 10 mg oral tablet TAKE ONE TABLET BY MOUTH ONCE A DAY Start Date: 03/19/19 Status: OrderedmetFORMIN 500 mg oral tablet 1 tablet = 500 mg, By Mouth, 2 times a day, # 60 tablet, 0 Refills, Maintenance, 05/06/21 6:16:00 EDT, Tablet, Partial fill upon patient request if the prescription is for a schedule II opioid drug. Start Date: 05/06/21 Status: Orderedmetoprolol succinate 100 mg oral capsule, extended release 1 capsule = 100 mg, By Mouth, Daily, # 30 capsule, 2 Refills, Maintenance, 02/23/21 9:00:00 EDT, ER Capsule, [facility], Partial fill upon patient request if the prescription is for a schedule II opioid drug., 155, cm, 02/23/21 7:57:00 E... Start Date: 02/23/21 Stop Date: 05/24/21 Status: Orderedpantoprazole 40 mg oral delayed release tablet = 40 mg, By Mouth, Daily at bedtime, label in bengali, # 30 tablet, 0 Refills, Maintenance, :04:00 EDT, EC Tablet, 155, cm, 05/07/21 3:26:00 EDT, Height, 83.5, kg, 05/06/21 6:24:00 EDT, Dry Weight Start Date: 05/07/21 Stop Date: 06/06/21 Status: OrderedProAir HFA 90 mcg/inh inhalation aerosol with adapter 2, puffs, Inhalation, Every 6 hours, Refills 0, Maintenance, 08/14/19 10:42:00 EST Start Date: 08/14/19 Status: OrderedRosuvastatin = 40 mg, By Mouth, Daily, 0 Refills, Maintenance, 11/15/20 15:57:00 EDT, Partial fill upon patient request if the prescription is for a schedule II opioid drug. Start Date: 11/15/20 Status: OrderedTresiba FlexTouch 200 units/mL subcutaneous solution = 20 units, Subcutaneous Injection, Daily, rotate injection sites, 0 Refills, Maintenance, 05/06/21 6:18:00 EDT, Solution, Partial fill upon patient request if the prescription is for a schedule II opioid drug. Start Date: 05/06/21 Status: OrderedTrulicity Pen 1.5 mg/0.5 mL subcutaneous solution INJECT THE CONTENT OF 1 pen (0.5ml) UNDER THE SKIN EACH WEEK. INJECT IN THE abdomen, thigh, OR upperTO THE ARM. rotate injection sites Start Date: 03/19/19 Status: OrderedVitamin D3 5000 intl units oral capsule 1 capsule = 5,000 International_Units, By Mouth, Daily, # 30 capsule, 0 Refills, Maintenance, 08/14/19 12:00:00 EST Start Date: 08/14/19 Status: Ordered Social History Social History Type Response Smoking Status Never smoker entered on: 04/05/17 Sex
--- OUTSIDE RECORDS SUMMARY | 2022-04-11 23:56 | XMS_ITS | Continuity of Care Document ---
:1955 Author Organization [facility] Address [address] [place] [address]- Care Team Providers Name Role Phone Christiano GALVEZ, Ganesh Primary Care Physician En[place] [facility] [place] Date(s): 08/31/20 - 09/30/20 [facility] [address] [place] [id number] Allergies, Adverse Reactions, Alerts Substance Reaction Severity Status Farxiga Active Immunizations Not Given Vaccine Date Status Refusal [...] 0 Refills, Maintenance Start Date: 08/14/19 Status: OrderedamLODIPine 5 mg oral tablet TAKE ONE TABLET BY MOUTH EVERY DAY Start Date: 03/19/19 Status: Orderedatorvastatin 80 mg oral tablet TAKE ONE TABLET BY MOUTH ONCE A DAY Start Date: 03/19/19 Status: OrderedColace Clear = 100 mg, By Mouth, 2 times a day, 0 Refills, Maintenance, 08/14/19 10:41:00 EST Start Date: 08/14/19 Status: OrderedDiclofenac = 50 mg, By Mouth, 3 times a day, 0 Refills, Maintenance, 08/14/19 10:45:00 EST Start Date: 08/14/19 Status: OrderedFarxiga 10 mg oral tablet TAKE ONE TABLET BY MOUTH ONCE A DAY Start Date: 03/19/19 Status: Orderedgabapentin 100 mg oral capsule TAKE ONE CAPSULE BY MOUTH 3 (THREE) TIMES A DAY Start Date: 03/19/19 Status: Orderedlevothyroxine 0.088 mg oral tablet TAKE ONE TABLET BY MOUTH SUNDAY TO SUNDAY. TAKE 1 & 1/2 TABLETS ON SUNDAY Start Date: 03/19/19 Status: Orderedlidocaine 5% topical film 1 patch, Topically, Daily, PRN Pain , Mild, remove after 12 hours, # 13 each, 0 Refills, Maintenance, 09/16/20 16:48:00 EDT, Film, [facility]/pharmacy #[id number], Partial fill upon patient request if the prescription is for a schedule II opioid drug., 1 patch Top... Start Date: 09/16/20 Status: Orderedlisinopril 10 mg oral tablet TAKE ONE TABLET BY MOUTH ONCE A DAY Start Date: 03/19/19 Status: OrderedmetFORMIN 500 mg oral tablet, extended release 1 tablet = 500 mg, By Mouth, Daily, # 30 tablet, 0 Refills, Maintenance, 08/14/19 12:00:00 EST Start Date: 08/14/19 Status: Orderedmetoprolol 50 mg oral tablet, extended release 50 mg, 1, tablet, By Mouth, Daily, # 30 tablet, Refills 0, Maintenance, 02/26/20 15:48:00 EDT Start Date: 02/26/20 Stop Date: 03/27/20 Status: OrderedProAir HFA 90 mcg/inh inhalation aerosol with adapter 2, puffs, Inhalation, Every 6 hours, Refills 0, Maintenance, 08/14/19 10:42:00 EST Start Date: 08/14/19 Status: Orderedsertraline 25 mg oral tablet TAKE ONE TABLET BY MOUTH EVERY DAY Start Date: 03/19/19 Status: OrderedTrazodone = 100 mg, By Mouth, Daily, 0 Refills, Maintenance, 08/14/19 10:41:00 EST Start Date: 08/14/19 Status: OrderedTresiba FlexTouch 200 units/mL subcutaneous solution INJECT 40 UNITS UNDER THE SKIN DAILY IN THE MORNING Start Date: 03/19/19 Status: OrderedTrulicity Pen 1.5 mg/0.5 mL subcutaneous [...] 08/14/19 12:00:00 EST Start Date: 08/14/19 Status: OrderedXarelto 20 mg oral tablet 1 tablet = 20 mg, By Mouth, Daily, # 90 tablet, 1 Refills, Maintenance, 09/01/20 14:20:00 EST, Tablet, [facility] [place] [place] - [id number], Partial fill upon patient request if the prescription is for a schedule II opioid drug., 155, cm, 02... Start Date: 09/01/20 Stop Date: 02/28/21 Status: Ordered Social History Social History Type Response Smoking Status Never smoker entered on: 04/05/17 Sex Female
--- OUTSIDE RECORDS SUMMARY | 2022-04-11 23:56 | XMS_ITS | Continuity of Care Document ---
:1955 Author Organization [facility] Address [address] [place] [phone]- Care Team Providers Name Role Phone Ganesh Alvarado MD Primary Care Physician Encounter [facility] [place] Date(s): 02/26/20 - 03/27/20 [facility] [address] [place] [phone]- [facility] Allergies, Adverse Reactions, Alerts Substance Reaction Severity Status Farxiga Active Medications Acetaminophen = 650 mg, By Mouth, [...] TABLETS ON SUNDAY Start Date: 03/19/19 Status: Orderedlisinopril 10 mg oral tablet TAKE [...] 08/14/19 Status: OrderedXarelto 20 mg oral tablet TAKE ONE TABLET BY MOUTH ONCE A DAY. TAKE WITH FOOD Start Date: 03/19/19 Status: Ordered Social History Social History Type Response Smoking Status Never smoker entered on: 04/05/17 Sex Female
--- OUTSIDE RECORDS SUMMARY | 2022-04-11 23:56 | XMS_ITS | Continuity of Care Document ---
:1955 Author Organization [facility] Address [address] [place] [address]- Care Team Providers Name Role Phone Ganesh Alvarado MD Primary Care Physician Encounter [facility] [place] Date(s): 03/31/21 - 04/30/21 [facility] [address] [place] [address]- Attending Physician: Loc Brasher Admitting Physician: Loc [...] 08/14/19 Status: Orderedamiodarone 200 mg oral tablet 400 mg, 2, tablet, By Mouth, 2 times a day, 400mg PO two times a day for 6 days(02/28). From 03/01 continue 200mg PO daily., # 60 tablet, Refills 0, Tot. Refills 0, Maintenance, 02/22/21 21:04:00 EDT, Route to Pharmacy Electronically, [facility]... Start Date: 02/22/21 Status: OrderedamLODIPine 5 mg oral tablet TAKE ONE TABLET BY MOUTH DAILY Start Date: 03/31/21 Status: OrderedColace Clear = 100 mg, By Mouth, 2 times a day, 0 Refills, Maintenance, 08/14/19 10:41:00 EST Start Date: 08/14/19 Status: OrderedD3-2000 50 mcg (2,000 unit) capsule TAKE ONE CAPSULE BY MOUTH DAILY Start Date: 03/31/21 Status: OrderedEliquis 5 mg oral tablet 1 tablet = 5 mg, By Mouth, 2 times a day, # 60 tablet, 4 Refills, Maintenance, 04/01/21 9:51:00 EDT,Tablet, [facility]/pharmacy #[id number], Partial fill upon patient request if the prescription is for a schedule II opioid drug., 155, cm, 03/31/21 13:56:00 EDT, H... Start Date: 04/01/21 Stop Date: 08/29/21 Status: OrderedEscitalopram = 10 mg, By Mouth, [...] EDT, Dry Weight Start Date: 11/18/20 Status: OrderedHydrOXYzine 0 Refills, Maintenance, 11/15/20 15:57:00 EDT, Partial fill upon patient request if the prescriptionis for a schedule II opioid drug. Start Date: 11/15/20 Status: OrderedLasix 20 mg oral tablet 20 mg, 1, tablet, By Mouth, Daily, # 90 tablet, Refills 3, Tot. Refills 3, Maintenance, 04/04/21 11:00:00 EDT, Route to Pharmacy Electronically, [facility]/pharmacy #[id number], Partial fill upon patient request ifthe prescription is for a schedule II opioid drug... Start Date: 04/04/21 Stop Date: 03/30/22 Status: Orderedlevothyroxine 0.088 mg oral tablet TAKE ONE TABLET BY MOUTH SUNDAY TO SUNDAY. TAKE 1 & 1/2 TABLETS ON SUNDAY Start Date: 03/19/19 Status: Orderedlidocaine 5% topical film 1 patch, Topically, Daily, PRN Pain , Mild, remove after 12 hours, # 13 each, 0 Refills, Maintenance, 09/16/20 16:48:00 EDT, Film, [facility]/pharmacy #[id number], Partial fill upon patient request if [...] 12:00:00 EST Start Date: 08/14/19 Status: Orderedmetoprolol succinate 100 mg oral capsule, extended release 1 capsule = 100 mg, By Mouth, Daily, # 30 capsule, 2 Refills, Maintenance, 02/23/21 9:00:00 EDT, ER Capsule, [facility], Partial fill upon patient request if the prescription is for a schedule II opioid drug., 155, cm, 02/23/21 7:57:00 E... Start Date: 02/23/21 Stop Date: 05/24/21 Status: OrderedProAir HFA 90 mcg/inh inhalation aerosol with adapter 2, puffs, Inhalation, Every 6 hours, Refills 0, Maintenance, 08/14/19 10:42:00 EST Start Date: 08/14/19 Status: OrderedRosuvastatin = 40 mg, By Mouth, Daily, 0 Refills, Maintenance, 11/15/20 15:57:00 EDT, Partial fill upon patient request if the prescription is for a schedule II opioid drug. Start Date: 11/15/20 Status: OrderedTrazodone = 100 mg, By Mouth, Daily, 0 Refills, Maintenance, 08/14/19 10:41:00 EST Start Date: 08/14/19 Status: OrderedTresiba = 20 units, Subcutaneous Injection, 3 times a day, 0 Refills, Maintenance, 11/19/20 13:01:00 EDT, Partial fill upon patient request if the prescription is for a schedule II opioid drug. Start Date: 11/19/20 Status: OrderedTrulicity Pen 1.5 mg/0.5 mL subcutaneous [...]
--- OUTSIDE RECORDS SUMMARY | 2022-04-11 23:56 | XMS_ITS | Continuity of Care Document ---
:1955 Author Organization [facility] Address [address] [place] [address]- Care Team Providers Name Role Phone Christiano GALVEZ, Ganesh Primary Care Physician Encounter [facility] [place] Date(s): 11/18/20 - 12/18/20 [facility] [address] [place] [id number] Allergies, Adverse Reactions, Alerts Substance Reaction Severity [...] 0 Refills, Maintenance Start Date: 08/14/19 Status: Orderedatorvastatin 80 mg oral tablet TAKE ONE TABLET BY MOUTH ONCE A DAY Start Date: 03/19/19 Status: OrderedColace Clear = 100 mg, By Mouth, 2 times a day, 0 Refills, Maintenance, 08/14/19 10:41:00 EST Start Date: 08/14/19 Status: OrderedEscitalopram = 10 mg, By Mouth, Daily, 0 Refills, Maintenance, 11/15/20 15:57:00 EDT, Partial fill upon patient request if the prescription is for a schedule II opioid drug. Start Date: 11/15/20 Status: OrderedFarxiga 10 mg oral tablet TAKE ONE TABLET BY MOUTH ONCE A DAY Start Date: 03/19/19 Status: Orderedgabapentin 100 mg oral capsule TAKE ONE CAPSULE BY MOUTH 3 (THREE) TIMES A DAY Start Date: 03/19/19 Status: [facility] See Instructions, # 1 [...] II opioid drug. Start Date: 11/15/20 Status: Orderedlevothyroxine 0.088 mg oral tablet TAKE ONE TABLET BY MOUTH SUNDAY TO SUNDAY. TAKE 1 & 1/2 TABLETS ON SUNDAY Start Date: 03/19/19 Status: Orderedlidocaine 5% topical film 1 patch, Topically, Daily, PRN Pain , Mild, remove after 12 hours, # 13 each, 0 Refills, Maintenance, 09/16/20 16:48:00 EDT, Film, [facility]/pharmacy #[id number], Partial fill upon patient request if the [...] 50 mg, 1, tablet, By Mouth, Daily, Refills 0, Maintenance, 11/20/20 16:32:00 EDT, Partial fill upon patient request if the prescription is for a schedule II opioid drug. Start Date: 11/20/20 Status: OrderedProAir HFA 90 mcg/inh inhalation aerosol with adapter 2, puffs, Inhalation, Every 6 hours, Refills 0, Maintenance, 08/14/19 10:42:00 EST Start Date: 08/14/19 Status: OrderedRosuvastatin = 40 mg, By Mouth, Daily, 0 Refills, Maintenance, 11/15/20 15:57:00 EDT, Partial fill upon patient request if the prescription is for a schedule II opioid drug. Start Date: 11/15/20 Status: Orderedsertraline 25 mg oral tablet TAKE [...] II opioid drug. Start Date: 11/19/20 Status: OrderedTresiba FlexTouch 200 units/mL subcutaneous solution [...] 1 Refills, Maintenance, 09/01/20 14:20:00 EST, Tablet, [place], [place] - [id number], Partial fill upon patient request if the prescription is for a schedule II opioid drug., 155, cm, 02... Start Date: 09/01/20 Stop Date: 02/28/21 Status: Ordered Social History Social History Type Response Smoking Status Never smoker entered on: 04/05/17 Sex Female
--- OUTSIDE RECORDS SUMMARY | 2022-04-11 23:56 | XMS_ITS | Continuity of Care Document ---
:1955 Author Organization [facility] Address [address] [place] [address]- Care Team Providers Name Role Phone Ganesh Alvarado MD Primary Care Physician En[place] [facility] [place] [id number] Date(s): 04/05/21 - 05/05/21 [facility] [address] [place] [address]- Attending Physician: Loc Brasher Admitting Physician: Loc Brasher Referring Physician: AdmtrLoc Allergies, Adverse Reactions, Alerts Substance Reaction Severity [...] 02/22/21 21:04:00 EDT, Route to Pharmacy Electronically, [facility]... Start Date: 02/22/21 Status: OrderedamLODIPine 5 [...] tablet, 4 Refills, Maintenance, 04/01/21 9:51:00 EDT,Tablet, [facility]/pharmacy #[id number], Partial fill upon patient request if [...] TIMES A DAY Start Date: 03/19/19 Status: [facility] See Instructions, # [...] 04/04/21 11:00:00 EDT, Route to Pharmacy Electronically, [facility]/pharmacy #[id number], Partial fill upon patient request ifthe [...] 0 Refills, Maintenance, 09/16/20 16:48:00 EDT, Film, [facility]/pharmacy #[id number], Partial fill upon [...] Refills, Maintenance, 02/23/21 9:00:00 EDT, ER Capsule, [facility], Partial fill upon patient request [...]
--- OUTSIDE RECORDS SUMMARY | 2022-04-11 23:56 | XMS_ITS | Continuity of Care Document ---
:1955 Author Organization [facility] Address [address] [place] [address]- Care Team Providers Name Role Phone Christiano GALVEZ, Ganesh Primary Care Physician Encounter [facility] Date(s): 07/01/20 - 09/25/20 [facility] [address] [place] [id number] Attending Physician: Aroldo Pal MD Admitting Physician: Aroldo Pal MD Referring Physician: Ganesh Alvarado MD Allergies, Adverse Reactions, Alerts Substance Reaction Severity [...] 0 Refills, Maintenance, 09/16/20 16:48:00 EDT, Film, [facility]/pharmacy #[id number], Partial fill upon patient request if the [...] 1 Refills, Maintenance, 09/01/20 14:20:00 EST, Tablet, [facility] [place], [place] - [phone], Partial fill upon patient request if the prescription is for a schedule II opioid drug., 155, cm, 02... Start Date: 09/01/20 Stop Date: 02/28/21 Status: Ordered Social History Social History Type Response Smoking Status Never smoker entered on: 04/05/17 Sex Female
--- OUTSIDE RECORDS SUMMARY | 2022-04-11 23:56 | XMS_ITS | Continuity of Care Document ---
:1955 Author Organization [facility] Address [address] [place] [address]- Care Team Providers Name Role Phone Ganesh Alvarado MD Primary Care Physician [id number] Date(s): 02/21/21 - 06/07/21 [facility] [address] [address] [place] Discharge Disposition: A-D/C Home Attending Physician: Jeaneth Gonzalez MD Admitting Physician: Jeaneth Gonzalez MD Referring Physician: Ganesh Alvarado MD Allergies, [...] 02/22/21 21:04:00 EDT, Route to Pharmacy Electronically, [facility]... Start Date: 02/22/21 Status: OrderedamLODIPine [...] tablet, 4 Refills, Maintenance, 04/01/21 9:51:00 EDT,Tablet, [facility]/pharmacy #[id number], Partial fill upon patient request [...] TIMES A DAY Start Date: 03/19/19 Status: [facility] See Instructions, # 1 [...] 04/04/21 11:00:00 EDT, Route to Pharmacy Electronically, [facility]/pharmacy #[id number], Partial fill upon patient request [...] 0 Refills, Maintenance, 09/16/20 16:48:00 EDT, Film, [facility]/pharmacy #[id number], Partial fill upon patient request [...] Refills, Maintenance, 02/23/21 9:00:00 EDT, ER Capsule, [facility], Partial fill upon patient request if the prescription is for a schedule II opioid drug., 155, cm, 02/23/21 7:57:00 E... Start Date: 02/23/21 Stop Date: 05/24/21 Status: Orderedpantoprazole 40 mg oral delayed release tablet = 40 mg, By Mouth, Daily at bedtime, label in [place], # 30 tablet, 0 Refills, Maintenance, :04:00 [...]
--- OUTSIDE RECORDS SUMMARY | 2022-04-11 23:56 | XMS_ITS | Continuity of Care Document ---
:1955 Author Organization [facility] Address [address] [place] [address]- Care Team Providers Name Role Phone Ganesh Alvarado MD Primary Care Physician Encounter [facility] [place] Date(s): 02/28/21 - 03/30/21 [facility] [address] [place] [address]- Allergies, Adverse Reactions, Alerts Substance Reaction Severity [...] 02/22/21 21:04:00 EDT, Route to Pharmacy Electronically, [facility]... Start Date: 02/22/21 Status: OrderedColace Clear = 100 mg, By Mouth, 2 times a day, 0 Refills, Maintenance, 08/14/19 10:41:00 EST Start Date: 08/14/19 Status: Orderedenoxaparin 80 mg/0.8 mL injectable solution = 80 mg, Subcutaneous Injection, Every 12 hours, # 30 each, 2 Refills, Maintenance, 02/22/21 21:05:00 EDT, Injection, [facility], Partial fill upon patient request if the prescription is for a schedule II opioid drug., 155, cm, 02/22/21... Start Date: 02/22/21 Stop Date: 05/23/21 Status: OrderedEscitalopram = 10 mg, By Mouth, Daily, 0 Refills, Maintenance, 11/15/20 15:57:00 EDT, Partial fill upon patient request if the prescription is for a schedule II opioid drug. Start Date: 11/15/20 Status: Orderedgabapentin 100 mg oral capsule TAKE ONE CAPSULE BY MOUTH 3 (THREE) TIMES A DAY Start Date: 03/19/19 Status: [facility] See Instructions, # [...] By Mouth, Daily, # 30 tablet, Refills 1, Tot. Refills 1, Maintenance, 02/23/21 9:01:00 EDT, Route to Pharmacy Electronically, [facility], Partial fill upon patient request if the prescription is for a schedule II opioid... Start Date: 02/23/21 Status: Orderedlevothyroxine 0.088 mg oral tablet TAKE ONE TABLET BY MOUTH SUNDAY TO SUNDAY. TAKE 1 & 1/2 TABLETS ON SUNDAY Start Date: 03/19/19 Status: Orderedlidocaine 5% topical film 1 patch, Topically, Daily, PRN Pain , Mild, remove after 12 hours, # 13 each, 0 Refills, Maintenance, 09/16/20 16:48:00 EDT, Film, [facility]/pharmacy #[id number], Partial fill upon patient request if [...] Refills, Maintenance, 02/23/21 9:00:00 EDT, ER Capsule, [facility], Partial fill upon patient [...]
--- OUTSIDE RECORDS SUMMARY | 2022-04-11 23:56 | XMS_ITS | Continuity of Care Document ---
:1955 Author Organization [facility] Address [address] [place] [phone]- Care Team Providers Name Role Phone Ganesh Alvarado MD Primary Care Physician Encounter [facility] [place] Date(s): 04/27/21 - 05/27/21 [facility] [address] [place] [address]- Allergies, Adverse Reactions, Alerts Substance Reaction Severity [...] 02/22/21 21:04:00 EDT, Route to Pharmacy Electronically, [facility]... Start Date: 02/22/21 Status: OrderedamLODIPine [...] tablet, 4 Refills, Maintenance, 04/01/21 9:51:00 EDT,Tablet, [facility]/pharmacy #[id number], Partial fill upon patient request if [...] TIMES A DAY Start Date: 03/19/19 Status: [facility] See Instructions, # 1 [...] 04/04/21 11:00:00 EDT, Route to Pharmacy Electronically, [facility]/pharmacy #[id number], Partial fill upon patient request ifthe [...] 0 Refills, Maintenance, 09/16/20 16:48:00 EDT, Film, [facility]/pharmacy #[id number], Partial fill upon patient request if [...] Refills, Maintenance, 02/23/21 9:00:00 EDT, ER Capsule, [facility], Partial fill upon patient request if the prescription is for a schedule II opioid drug., 155, cm, 02/23/21 7:57:00 E... Start Date: 02/23/21 Stop Date: 05/24/21 Status: Orderedpantoprazole 40 mg oral delayed release tablet = 40 mg, By Mouth, Daily at bedtime, label in lao, # 30 tablet, 0 Refills, Maintenance, :04:00 [...]
--- OUTSIDE RECORDS SUMMARY | 2022-04-11 23:56 | XMS_ITS | Continuity of Care Document ---
:1955 Author Organization [facility] Address [address] [place] [address]- Care Team Providers Name Role Phone Ganesh Alvarado MD Primary Care Physician [place] [facility] [place] Date(s): 05/06/21 - 05/07/[address] [address] Discharge Disposition: A-D/C Home Attending Physician: Aroldo Pal MD Admitting Physician: Aroldo Pal MD Referring Physician: Aroldo Pal MD Allergies, Adverse Reactions, Alerts Substance Reaction [...] 02/22/21 21:04:00 EDT, Route to Pharmacy Electronically, [facility]... Start Date: 02/22/21 Status: OrderedamLODIPine 5 mg oral tablet 5 mg, Tablet, By Mouth, 05/07/21 9:00:00 EDT Start Date: 05/07/21 Stop Date: 05/07/21 Status: CompletedamLODIPine 5 mg oral tablet TAKE ONE TABLET [...] tablet, 4 Refills, Maintenance, 04/01/21 9:51:00 EDT,Tablet, [facility]/pharmacy #[id number], Partial fill upon patient request [...] TIMES A DAY Start Date: 03/19/19 Status: [facility] See Instructions, # 1 [...] 04/04/21 11:00:00 EDT, Route to Pharmacy Electronically, [facility]/pharmacy #[id number], Partial fill upon patient request [...] 0 Refills, Maintenance, 09/16/20 16:48:00 EDT, Film, [facility]/pharmacy #[id number], Partial fill upon patient request if the prescription is for a schedule II opioid drug., 1 patch Top... Start Date: 09/16/20 Status: Orderedlisinopril 10 mg oral tablet TAKE ONE TABLET BY MOUTH ONCE A DAY Start Date: 03/19/19 Status: Orderedlisinopril 10 mg oral tablet 10 mg, Tablet, By Mouth, 05/07/21 9:00:00 EDT Start Date: 05/07/21 Stop Date: 05/07/21 Status: CompletedmetFORMIN 500 mg oral tablet 1 tablet = 500 mg, By Mouth, 2 times a day, # 60 tablet, 0 Refills, Maintenance, 05/06/21 6:16:00 EDT, Tablet, Partial fill upon patient request if the prescription is for a schedule II opioid drug. Start Date: 05/06/21 Status: Orderedmetoprolol 100 mg oral tablet, extended release 100 mg, XL Tablet, By Mouth, 05/07/21 9:00:00 EDT Start Date: 05/07/21 Stop Date: 05/07/21 Status: Completedmetoprolol succinate 100 mg oral capsule, extended release 1 capsule = 100 mg, By Mouth, Daily, # 30 capsule, 2 Refills, Maintenance, 02/23/21 9:00:00 EDT, ER Capsule, [facility], Partial fill upon patient request if the prescription is for a schedule II opioid drug., 155, cm, 02/23/21 7:57:00 E... Start Date: 02/23/21 Stop Date: 05/24/21 Status: Orderedpantoprazole 40 mg oral delayed release tablet = 40 mg, By Mouth, Daily at bedtime, label in [place], # 30 tablet, 0 Refills, Maintenance, 218:04:00 EDT, EC Tablet, 155, cm, 05/07/21 3:26:00 [...] 12:00:00 EST Start Date: 08/14/19 Status: Ordered Vital Signs Most recent to oldest 1 2 3 [Reference Range]: Height 155 cm 155 cm 155 cm (05/07/21 3:26 AM) (05/06/21 9:02 PM) (05/06/21 4:5 1 PM) Weight 83.5 kg 83.5 kg (05/06/21 6:33 AM) (05/06/21 6:24 AM) Oxygen Saturation [94-100 %] 97 % 97 % 95 % (05/07/21 8:00 AM) (05/07/21 3:26 AM) (05/06/21 9:0 2 PM) Pulse Rate [55-90 bpm] 65 bpm 65 bpm 63 bpm (05/07/21 10:24 AM) (05/07/21 8:00 AM) (05/07/21 3: 26 AM) Blood Pressure [90-138/55-84 107/65 mm Hg 107/65 mm Hg 107 /65 mm Hg mm Hg] (05/07/21 10:24 AM) (05/07/21 10:24 AM) (05/07/21 1 0:24 AM) Respiratory Rate [16-30 17 br/min 18 br/min 18 br/mi n br/min] (05/07/21 8:00 AM) (05/07/21 3:26 AM) (05/06/21 9:0 2 PM) Temperature [96.8-100.4 98.1 DegF 98.3 DegF 98.0 Deg F DegF] (05/07/21 8:00 AM) (05/07/21 3:26 AM) (05/06/21 9:0 2 PM) Mode of Delivery (Oxygen) Room air Room air Room a ir (05/07/21 8:00 AM) (05/07/21 3:26 AM) (05/06/21 9:0 2 PM) Blood pressure sites Arm, right Arm, right Arm, right (05/07/21 8:00 AM) (05/07/21 3:26 AM) (05/06/21 9:0 2 PM) Temperature Route Oral Oral Oral (05/07/21 8:00 AM) (05/07/21 3:26 AM) (05/06/21 9:0 2 PM) Dry Weight 83.5 kg (05/06/21 6:24 AM) Social History Social History Type Response Smoking Status Never smoker entered on: 04/05/17 Sex
--- OUTSIDE RECORDS SUMMARY | 2022-04-11 23:56 | XMS_ITS | Continuity of Care Document ---
:1955 Author Organization [facility] Address [address] [place] [phone]- Care Team Providers Name Role Phone Christiano GALVEZ, Ganesh Primary Care Physician Encounter [facility] [place] Date(s): 02/17/21 - 02/23/[address] [address] Discharge Disposition: A-D/C Home Attending Physician: Jared Macdonald MD Admitting Physician: Ivonne Matta MD Referring Physician: Not on Staff, Referring MD Allergies, Adverse Reactions, Alerts Substance Reaction [...] 02/22/21 21:04:00 EDT, Route to Pharmacy Electronically, [facility]... Start Date: 02/22/21 Status: OrderedColace Clear = 100 mg, By Mouth, 2 times a day, 0 Refills, Maintenance, 08/14/19 10:41:00 EST Start Date: 08/14/19 Status: Orderedenoxaparin 80 mg/0.8 mL injectable solution = 80 mg, Subcutaneous Injection, Every 12 hours, # 30 each, 2 Refills, Maintenance, 02/22/21 21:05:00 EDT, Injection, [facility], Partial fill upon patient [...] 11/15/20 Status: Orderedgabapentin 100 mg oral capsule 100 mg, Capsule, By Mouth, 02/23/21 9:00:00 EDT Start Date: 02/23/21 Stop Date: 02/23/21 Status: Completedgabapentin 100 mg oral capsule TAKE ONE CAPSULE BY MOUTH 3 (THREE) TIMES A DAY Start Date: 03/19/19 Status: [facility] See Instructions, # [...] 02/23/21 9:01:00 EDT, Route to Pharmacy Electronically, [facility], Partial fill upon patient [...] 0 Refills, Maintenance, 09/16/20 16:48:00 EDT, Film, [facility]/pharmacy #[id number], Partial fill upon patient request if the prescription is for a schedule II opioid drug., 1 patch Top... Start Date: 09/16/20 Status: Orderedlisinopril 10 mg oral tablet 10 mg, Tablet, By Mouth, 02/23/21 9:00:00 EDT Start Date: 02/23/21 Stop Date: 02/23/21 Status: Completedlisinopril 10 mg oral tablet TAKE ONE TABLET BY MOUTH ONCE A DAY Start Date: 03/19/19 Status: OrderedmetFORMIN 500 mg oral tablet, extended release 1 tablet = 500 mg, By Mouth, Daily, # 30 tablet, 0 Refills, Maintenance, 08/14/19 12:00:00 EST Start Date: 08/14/19 Status: Orderedmetoprolol 50 mg oral tablet 50 mg, Tablet, By Mouth, Hold for: SBP<100 OR HR<55, 02/23/21 9:00:00 EDT Start Date: 02/23/21 Stop Date: 02/23/21 Status: Completedmetoprolol succinate 100 mg oral capsule, extended release 1 capsule = 100 mg, By Mouth, Daily, # 30 capsule, 2 Refills, Maintenance, 02/23/21 9:00:00 EDT, ER Capsule, [facility], Partial fill upon patient [...] 12:00:00 EST Start Date: 08/14/19 Status: Ordered Results Radiology Reports Exam Date Time Procedure Performing Provider Status 02/17/21 1:02 PM Chest 2 Views Frontal and Lat Cherelle Barron; Auth (Verified) Notes:(Chest 2 Views Frontal and Lat) Reason For Exam: lower extremity swelling;Other:RESULT: Chest 2 Views Frontal and Lat Chest 2 Views Frontal and Lat Hx of Present Illness: travelled to [place] and returned with swelling in feet and legs; Reason: Other:; lower extremity swelling; Clinical Question(s): CHF COMPARISON: Chest radiograph 11/19/2020. FINDINGS: LINES AND TUBES: None. LUNGS AND PLEURA: No focal consolidation or overt edema. No focal consolidation. No pleural effusion. No pneumothorax. HEART, MEDIASTINUM AND JAMMIE: The heart projects at the upper limits of normal for size. Normal upper mediastinal and hilar contour. BONES AND SOFT TISSUES: No acute abnormality. IMPRESSION: No overt pulmonary edema. Top normal heart size. WSN: [id number] Ordering Physician: Liss Blank Dictated By: Cherri Lockwood MD Dictated Date/Time: 02/17/21 1:05 pm Reviewed By: Cherri Lockwood MD Signed By: Cherri Lockwood MD Signed Date/Time: 02/17/21 1:05 pm Transcribed By: TONIO Transcribed Date/Time: 02/17/21 1:03 pm Vital Signs Most recent to oldest 1 2 3 [Reference Range]: Height 155 cm 155 cm 155 cm (02/23/21 7:57 AM) (02/23/21 2:18 AM) (02/22/21 7:2 7 PM) Weight 85.7 kg 84.8 kg 84.8 kg (02/23/21 6:47 AM) (02/22/21 11:30 AM) (02/22/21 7: 06 AM) Oxygen Saturation [94-100 %] 98 % 98 % 98 % (02/23/21 7:57 AM) (02/23/21 2:18 AM) (02/22/21 7:2 7 PM) Pulse Rate [55-90 bpm] 60 bpm 60 bpm 55 bpm (02/23/21 8:44 AM) (02/23/21 7:57 AM) (02/23/21 2:1 8 AM) Body Mass Index [18.5-24.99] 36.59 *>HHI* (02/18/21 3:28 AM) Blood Pressure [90-138/55-84 102/47 mm Hg 102/47 mm Hg 100 /61 mm Hg mm Hg] (02/23/21 8:44 AM) (02/23/21 7:57 AM) (02/23/21 2:1 8 AM) Respiratory Rate [16-30 18 br/min 18 br/min 18 br/mi n br/min] (02/23/21 9:44 AM) (02/23/21 8:44 AM) (02/23/21 7:5 7 AM) Temperature [96.8-100.4 DegF] 97.9 DegF 98.6 DegF 97 .8 DegF (02/23/21 7:57 AM) (02/23/21 2:18 AM) (02/22/21 7:2 7 PM) Liters per Minute 0 L/min (02/17/21 7:49 PM) Mode of Delivery (Oxygen) Room air Room air Room a ir (02/23/21 7:57 AM) (02/23/21 2:18 AM) (02/22/21 7:2 7 PM) Blood pressure sites Arm, right Arm, left Arm, left (02/23/21 7:57 AM) (02/23/21 2:18 AM) (02/22/21 7:2 7 PM) Temperature Route Temporal Temporal Temporal (02/23/21 7:57 AM) (02/23/21 2:18 AM) (02/22/21 7:2 7 PM) Weight Obtained Via Bed scale Bed scale Bed scale (02/23/21 6:47 AM) (02/22/21 7:06 AM) (02/21/21 6:4 4 AM) Social History Social History Type Response Smoking Status Never smoker entered on: 04/05/17 Sex Female
--- OUTSIDE RECORDS SUMMARY | 2022-04-11 23:56 | XMS_ITS | Continuity of Care Document ---
:1955 Author Organization [facility] Address [address] [place] [phone]- Care Team Providers Name Role Phone Christiano GALVEZ, Ganesh Primary Care Physician [place] [facility] [place] 09/19/[address] [address] Discharge Disposition: A-D/C Home Attending Physician: Lucero GALVEZ, Jann Admitting Physician: Maddy GALVEZ, Chantell Referring Physician: Not on Staff, Referring MD [...] 03/19/19 Status: Orderedgabapentin 100 mg oral capsule 100 mg, Capsule, By Mouth, 09/19/20 9:00:00 EDT Start Date: 09/19/20 Stop Date: 09/19/20 Status: Completedgabapentin 100 mg oral capsule TAKE [...] 0 Refills, Maintenance, 09/16/20 16:48:00 EDT, Film, [facility]/pharmacy #[id number], Partial fill upon patient request if the [...] MOUTH EVERY DAY Start Date: 03/19/19 Status: OrderedToprol XL 50 mg oral tablet, extended release 50 mg, XL Tablet, By Mouth, Hold for: pulse <60 or hypotension, 09/19/20 9:00:00 EDT Start Date: 09/19/20 Stop Date: 09/19/20 Status: CompletedTrazodone = 100 mg, By Mouth, Daily, 0 [...] 1 Refills, Maintenance, 09/01/20 14:20:00 EST, Tablet, [place], [place] - [phone], Partial fill upon patient request if the prescription is for a schedule II opioid drug., 155, cm, 02... Start Date: 09/01/20 Stop Date: 02/28/21 Status: Ordered Results Radiology Reports Exam Date Time Procedure Performing Provider Status 09/17/20 2:26 PM Chest Portable Guerita Lomas; Mary (Verified) Notes:(Chest Portable) Reason For Exam: Shortness of BreathRESULT: Chest Portable Chest Portable INDICATION: Dyspnea, evaluate for pulmonary edema. COMPARISON: 09/30/2018. FINDINGS: LINES AND TUBES: None. LUNGS AND PLEURA: Clear lungs. Normal pulmonary vascularity. No pleural effusion. No pneumothorax. HEART, MEDIASTINUM AND JAMMIE: Heart is at the upper limits of normal for size. Aorta is somewhat tortuous. BONES AND SOFT TISSUES: No acute abnormality. IMPRESSION: No acute abnormality. I have personally reviewed the images and I agree with this report. WSN: [id number] Ordering Physician: Mak Benjamin Dictated By: Steve[Radiology] Maria M GALVEZ Dictated Date/Time: 09/17/20 2:40 pm Reviewed By: Tl Moss MD Signed By: Tl Moss MD Signed Date/Time: 09/17/20 2:45 pm Transcribed By: TONIO Transcribed Date/Time: 09/17/20 2:29 pm Vital Signs Most recent to oldest 1 2 3 [Reference Range]: Height 158 cm 158 cm 158 cm (09/19/20 11:14 AM) (09/19/20 7:37 AM) (09/18/20 4: 07 PM) Weight 84 kg (09/17/20 11:21 PM) Oxygen Saturation [94-100 %] 100 % 100 % 98 % (09/19/20 11:14 AM) (09/19/20 7:37 AM) (09/19/20 12 :00 AM) Pulse Rate [55-90 bpm] 50 bpm 53 bpm 53 bpm *L* *L* *L* (09/19/20 11:14 AM) (09/19/20 9:41 AM) (09/19/20 7: 37 AM) Body Mass Index [18.5-24.99] 33.65 *>HHI* (09/17/20 11:21 PM) Blood Pressure [90-138/55-84 143/55 mm Hg 115/53 mm Hg 115 /53 mm Hg mm Hg] *H* (09/19/20 9:41 AM) (09/19/20 7:37 AM) (09/19/20 11:14 AM) Respiratory Rate [16-30 14 br/min 16 br/min 14 br/mi n br/min] *L* (09/19/20 9:41 AM) *L* (09/19/20 11:14 AM) (09/19/20 7:37 AM) Temperature [96.8-100.4 DegF] 97.8 DegF 98.0 DegF 98 .7 DegF (09/19/20 11:14 AM) (09/19/20 7:37 AM) (09/19/20 12 :00 AM) Liters per Minute 0 L/min 2 L/min 2 L/min (09/18/20 11:10 AM) (09/17/20 9:00 PM) (09/17/20 8: 52 PM) Mode of Delivery (Oxygen) Room air Room air Room a ir (09/19/20 11:14 AM) (09/19/20 7:37 AM) (09/19/20 12 :00 AM) Blood pressure sites Arm, left Arm, left Arm, right (09/19/20 11:14 AM) (09/19/20 7:37 AM) (09/19/20 12 :00 AM) Temperature Route Oral Oral Oral (09/19/20 11:14 AM) (09/19/20 7:37 AM) (09/19/20 12 :00 AM) Dry Weight 84 kg (09/17/20 11:21 PM) Social History Social History Type Response Smoking Status Never smoker entered on: 04/05/17 Sex Female
--- OUTSIDE RECORDS SUMMARY | 2022-04-11 23:56 | XMS_ITS | Continuity of Care Document ---
:1955 Author Organization [facility] Address [address] [place] [phone]- Care Team Providers Name Role Phone Christiano GALVEZ, Ganesh Primary Care Physician Encounter [facility] [place] Date(s): 10/15/20 - 11/14/20 [facility] [address] [place] [id number] Allergies, Adverse Reactions, Alerts Substance Reaction [...] 16:48:00 EDT, Film, [facility]/pharmacy #[id number], Partial fill upon patient [...] EST Start Date: 08/14/19 Status: Orderedmetoprolol succinate 25 mg oral capsule, extended release 1 capsule = 25 mg, By Mouth, Daily, # 90 capsule, 3 Refills, Maintenance, 10/12/20 11:10:00 EDT, ER Capsule, [facility]/pharmacy #[id number], Partial fill upon patient request if the prescription is for a schedule II opioid drug., 158, cm, 09/19/20 11:14:00 EDT, H... Start Date: 10/12/20 Stop Date: 10/07/21 Status: OrderedProAir HFA 90 mcg/inh inhalation aerosol [...] 1 Refills, Maintenance, 09/01/20 14:20:00 EST, Tablet, [facility] [place], [place] - [phone], Partial fill upon patient request if the prescription is for a schedule II opioid drug., 155, cm, 02... Start Date: 09/01/20 Stop Date: 02/28/21 Status: Ordered Social History Social History Type Response Smoking Status Never smoker entered on: 04/05/17 Sex Female
--- OUTSIDE RECORDS SUMMARY | 2022-04-11 23:56 | XMS_ITS | Continuity of Care Document ---
:1955 Author Organization [facility] Address [address] [place] [phone]- Care Team Providers Name Role Phone Christiano GALVEZ, Ganesh Primary Care Physician Encounter [facility] [place] Date(s): 09/20/20 - 10/20/20 [facility] [address] [place] [id number] Allergies, Adverse Reactions, Alerts Substance Reaction [...] 0 Refills, Maintenance, 09/16/20 16:48:00 EDT, Film, [facility]/pharmacy #[id number], Partial fill upon patient request [...] Refills, Maintenance, 10/12/20 11:10:00 EDT, ER Capsule, [facility]/pharmacy #[id number], Partial fill upon patient request [...] 1 Refills, Maintenance, 09/01/20 14:20:00 EST, Tablet, [facility] [place] - [phone], Partial fill upon patient request if the prescription is for a schedule II opioid drug., 155, cm, 02... Start Date: 09/01/20 Stop Date: 02/28/21 Status: Ordered Social History Social History Type Response Smoking Status Never smoker entered on: 04/05/17 Sex Female
--- OUTSIDE RECORDS SUMMARY | 2022-04-11 23:57 | XMS_ITS | Continuity of Care Document ---
:1955 Author Organization [facility] Address [address] [place] [address]- Care Team Providers Name Role Phone Christiano GALVEZ, Ganesh Primary Care Physician [place] [facility] [place] 09/03/20 - 01/01/21 [facility] [address] [place] [id number] Attending Physician: Aroldo Pal MD Admitting Physician: Aroldo Pal MD Allergies, Adverse Reactions, [...] A DAY Start Date: 03/19/19 Status: [facility] See Instructions, [...] 0 Refills, Maintenance, 09/16/20 16:48:00 EDT, Film, [facility]/pharmacy #[id number], Partial fill upon patient request if the [...] 1 Refills, Maintenance, 09/01/20 14:20:00 EST, Tablet, [place], [place] - [phone], Partial fill upon patient request if the prescription is for a schedule II opioid drug., 155, cm, 02... Start Date: 09/01/20 Stop Date: 02/28/21 Status: Ordered Social History Social History Type Response Smoking Status Never smoker entered on: 04/05/17 Sex Female
--- OUTSIDE RECORDS SUMMARY | 2022-04-11 23:57 | XMS_ITS | Continuity of Care Document ---
:1955 Author Organization [facility] Address [address] [place] [address]- Care Team Providers Name Role Phone Christiano GALVEZ, Ganesh Primary Care Physician Encounter [facility] [place] Date(s): 09/16/20 - 09/16/[address] [address]- Encounter Diagnosis Hip pain (Final) - 09/16/20 Discharge Disposition: A-D/C Home Attending Physician: Francesca Mendoza MD Admitting Physician: Francesca Mendoza MD Referring Physician: Not on Staff, Referring [...] 0 Refills, Maintenance, 09/16/20 16:48:00 EDT, Film, [facility]/pharmacy #[id number], Partial fill upon patient request if the [...] Start Date: 02/26/20 Stop Date: 03/27/20 Status: OrderedOxyCODONE IR Tablet 5 mg, Tablet, By Mouth, Once, STAT, 09/16/20 12:22:00 EDT, Stop date 09/16/20 12:22:00 EDT Start Date: 09/16/20 Stop Date: 09/16/20 Status: CompletedProAir HFA 90 mcg/inh inhalation aerosol with adapter [...] 1 Refills, Maintenance, 09/01/20 14:20:00 EST, Tablet, [place], [place] - [phone], Partial fill upon patient request if the prescription is for a schedule II opioid drug., 155, cm, 02... Start Date: 09/01/20 Stop Date: 02/28/21 Status: Ordered Results Orders for Microbiology Reports Name Date Urine Culture (URINE CULTURE) 09/16/20 Microbiology Reports TEST:Urine Culture STATUS:Unauthenticated BODY SITE: SOURCE:URINE COLLECTED DATE/TIME:09/16/20 12:10 PMUrine Culture SPECIMEN DESCRIPTION : URINE SPECIAL REQUESTS : NONE Reflexed from [id number] REPORT STATUS : PRELIMINARY REPORT Radiology Reports Exam Date Time Procedure Performing Provider Status 09/16/20 12:49 PM XR Hip w/Pelvis 2-3 View Right Geneva Lai; Auth (Verified) Notes:(XR Hip w/Pelvis 2-3 View Right) Reason For Exam: PainRESULT: XR Hip w/Pelvis 2-3 View Right PROCEDURE: XR Hip w/Pelvis 2-3 View Right CLINICAL INDICATION: 65 years old Female with Hx of Present Illness: Pt reported right hip pain overlast 3 days with no injury or trauma. Pt denies any fever or shortness of breath. Pt was using Ibuprofen with little effect.; Reason: Pain; Clinical Question(s): Fracture. COMPARISONS: None. FINDINGS: Bones and joints: No fracture or dislocation. 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 Evidence of calcific enthesopathy along bilateral superior anterior iliac spines, right greater than left and in the right greater trochanter. Soft Tissues: There are phleboliths in the lower pelvis. No evidence of radiopaque foreign body. IMPRESSION: 1. No evidence of acute bony injuries. 2. Mild degenerative changes as detailed above. Thank you for allowing me to participate in the care of this patient. WSN: [id number] Ordering Physician: Francesca Mendoza Dictated By: Elsie Sanchez MD Dictated Date/Time: 09/16/20 12:52 p Reviewed By: Elsie Sanchez MD Signed By: Elsie Sanchez MD Signed Date/Time: 09/16/20 12:52 pm Transcribed By: TONIO Transcribed Date/Time: 09/16/20 12:49 pm Vital Signs Most recent to oldest 1 2 3 [Reference Range]: Oxygen Saturation [94-100 %] 99 % 100 % 100 % (09/16/20 4:20 PM) (09/16/20 11:32 AM) (09/16/20 11 :23 AM) Pulse Rate [55-90 bpm] 78 bpm 54 bpm 51 bpm (09/16/20 4:20 PM) *L* *L* (09/16/20 11:32 AM) (09/16/20 11:2 3 AM) Blood Pressure [90-138/55-84 132/78 mm Hg 154/66 mm Hg mm Hg] (09/16/20 4:20 PM) *H* (09/16/20 11:32 AM) Respiratory Rate [16-30 18 br/min 16 br/min 18 br/mi n br/min] (09/16/20 4:20 PM) (09/16/20 12:49 PM) (09/16/20 11 :32 AM) Temperature [96.8-100.4 DegF] 97.8 DegF 97.7 DegF (09/16/20 4:20 PM) (09/16/20 11:32 AM) Mode of Delivery (Oxygen) Room air Room air Room a ir (09/16/20 4:20 PM) (09/16/20 11:32 AM) (09/16/20 11 :23 AM) Blood pressure sites Arm, right (09/16/20 4:20 PM) Temperature Route Oral Oral (09/16/20 4:20 PM) (09/16/20 11:32 AM) Social History Social History Type Response Smoking Status Never smoker entered on: 04/05/17 Sex Female
--- OUTSIDE RECORDS SUMMARY | 2022-04-11 23:57 | XMS_ITS | Continuity of Care Document ---
:1955 Author Organization [facility] Address [address] [place] [phone]- Care Team Providers Name Role Phone Christiano GALVEZ, Ganesh Primary Care Physician Encounter [facility] [place] Date(s): 06/14/20 - 07/14/20 [facility] [address] [place] [id number] Allergies, Adverse Reactions, Alerts [...]
--- OUTSIDE RECORDS SUMMARY | 2022-04-11 23:57 | XMS_ITS | Continuity of Care Document ---
:1955 Author Organization [facility] Address [address] [place] [phone]- Care Team Providers Name Role Phone Christiano GALVEZ, Ganesh Primary Care Physician [place] [facility] [place] 09/20/20 - 10/20/20 [facility] [address] [place] [id number] Allergies, Adverse Reactions, Alerts Substance Reaction [...] 0 Refills, Maintenance, 09/16/20 16:48:00 EDT, Film, [facility]/pharmacy #[id number], Partial fill upon patient request [...] Refills, Maintenance, 10/12/20 11:10:00 EDT, ER Capsule, [facility]/pharmacy #[id number], Partial fill upon patient request [...] 1 Refills, Maintenance, 09/01/20 14:20:00 EST, Tablet, [facility] [place], [place] - [phone], Partial fill upon patient request if the prescription is for a schedule II opioid drug., 155, cm, 02... Start Date: 09/01/20 Stop Date: 02/28/21 Status: Ordered Social History Social History Type Response Smoking Status Never smoker entered on: 04/05/17 Sex Female
--- OUTSIDE RECORDS SUMMARY | 2022-04-11 23:57 | XMS_ITS | Continuity of Care Document ---
:1955 Author Organization [facility] Address [address] [place] [phone]- Care Team Providers Name Role Phone Christiano GALVEZ, Ganesh Primary Care Physician [place] [facility] [place] 10[place] 11/07/20 [facility] [address] [place] [id number] Allergies, Adverse Reactions, Alerts Substance Reaction Severity [...] 0 Refills, Maintenance, 09/16/20 16:48:00 EDT, Film, [facility]/pharmacy #[id number], Partial fill upon patient request [...] Refills, Maintenance, 10/12/20 11:10:00 EDT, ER Capsule, [facility]/pharmacy #[id number], Partial fill upon patient request [...] 1 Refills, Maintenance, 09/01/20 14:20:00 EST, Tablet, [facility] [place], [place] - [phone], Partial fill upon patient request if the prescription is for a schedule II opioid drug., 155, cm, 02... Start Date: 09/01/20 Stop Date: 02/28/21 Status: Ordered Social History Social History Type Response Smoking Status Never smoker entered on: 04/05/17 Sex Female
--- OUTSIDE RECORDS SUMMARY | 2022-04-11 23:57 | XMS_ITS | Continuity of Care Document ---
:1955 Author Organization [facility] Address [address] [place] [phone]- Care Team Providers Name Role Phone Ganesh Alvarado MD Primary Care Physician En[place] [facility] [place] Date(s): 06/13/21 - 07/13/21 [facility] [address] [place] [address]- Attending Physician: Loc Brasher Admitting Physician: Loc [...] 08/14/19 Status: Orderedamiodarone 200 mg oral tablet See Instructions, TAKE ONE TABLET BY MOUTH ONCE DAILY, # 30 tablet, Refills 0, Instructions Replace Required Details, Route to Pharmacy Electronically, [facility], 155, cm, 05/07/21 3:26:00 EDT, Height, 83.5, kg, 05/06/21 6:24:00 EDT, Dry Weight Start Date: 07/07/21 Status: OrderedamLODIPine 5 mg oral tablet TAKE [...] tablet, 4 Refills, Maintenance, 04/01/21 9:51:00 EDT,Tablet, [facility]/pharmacy #[id number], Partial fill upon [...] TIMES A DAY Start Date: 03/19/19 Status: [facility] See Instructions, # [...] 04/04/21 11:00:00 EDT, Route to Pharmacy Electronically, [facility]/pharmacy #[id number], Partial fill upon [...] 0 Refills, Maintenance, 09/16/20 16:48:00 EDT, Film, [facility]/pharmacy #[id number], Partial fill upon [...] Refills, Maintenance, 02/23/21 9:00:00 EDT, ER Capsule, [facility], Partial fill upon patient request if the prescription is for a schedule II opioid drug., 155, cm, 02/23/21 7:57:00 E... Start Date: 02/23/21 Stop Date: 05/24/21 Status: Orderedpantoprazole 40 mg oral delayed release tablet = 40 mg, By Mouth, Daily at bedtime, label in malagasy, # 30 tablet, 0 Refills, Maintenance, :04:00 [...]
--- OUTSIDE RECORDS SUMMARY | 2022-04-11 23:57 | XMS_ITS | Continuity of Care Document ---
:1955 Author Organization [facility] Address [address] [place] [phone]- Care Team Providers Name Role Phone Christiano GALVEZ, Ganesh Primary Care Physician Encounter [facility] [place] Date(s): 11/19/20 - 12/19/20 [facility] [address] [place] [id number] Allergies, Adverse Reactions, Alerts Substance Reaction [...] TIMES A DAY Start Date: 03/19/19 Status: [facility] See Instructions, # [...] Maintenance, 09/16/20 16:48:00 EDT, Film, [facility]/pharmacy #[id number], Partial fill upon patient request if the [...] 1 Refills, Maintenance, 09/01/20 14:20:00 EST, Tablet, [place], [place] - [phone], Partial fill upon patient request if the prescription is for a schedule II opioid drug., 155, cm, 02... Start Date: 09/01/20 Stop Date: 02/28/21 Status: Ordered Social History Social History Type Response Smoking Status Never smoker entered on: 04/05/17 Sex Female
--- OUTSIDE RECORDS SUMMARY | 2022-04-11 23:57 | XMS_ITS | Continuity of Care Document ---
:1955 Author Organization [facility] Address [address] [place] [address]- Care Team Providers Name Role Phone Christiano GALVEZ, Ganesh Primary Care Physician Encounter [facility] Date(s): 05/28/20 - 09/25/20 [facility] [address] [place] [id number] Attending Physician: Aroldo Pal MD Admitting Physician: [...] Refills, Maintenance, 08/14/19 10:45:00 EST Start Date: 2/13/20 Status: OrderedFarxiga 10 mg oral tablet TAKE [...] Refills, Maintenance, 09/16/20 16:48:00 EDT, Film, [facility]/pharmacy #[id number], Partial fill upon patient request if the [...] 1 Refills, Maintenance, 09/01/20 14:20:00 EST, Tablet, [facility] [place], [place] - [phone], Partial fill upon patient request if the prescription is for a schedule II opioid drug., 155, cm, 02... Start Date: 09/01/20 Stop Date: 02/28/21 Status: Ordered Social History Social History Type Response Smoking Status Never smoker entered on: 04/05/17 Sex Female
--- OUTSIDE RECORDS SUMMARY | 2022-04-11 23:57 | XMS_ITS | Continuity of Care Document ---
:1955 Author Organization [facility] Address [address] [place] [address]- Care Team Providers Name Role Phone Ganesh Alvarado MD Primary Care Physician Encounter [facility] Date(s): 03/28/22 - 03/29/[address] [address]- Encounter Diagnosis Arthritis of knee, right (Final) - 03/29/22 Arthritis of knee, right (Final) - 03/29/22 Discharge Disposition: A-D/C Home Attending Physician: Sharyn Abdi MD Admitting Physician: Sharyn Abdi MD Referring Physician: Not on Staff, Referring [...] tablet, Refills 5, Route to Pharmacy Electronically, [facility], 155, cm, 05/07/21 3:26:00 EDT, Height, [...] a day, # 60 tablet, 11 Refills, [facility], 155, cm, 05/07/21 3:26:00 EDT, [...] TIMES A DAY Start Date: 03/19/19 Status: [facility] See Instructions, # [...] 01/09/22 12:28:00 EDT, Route to Pharmacy Electronically, [place], [place] - [phone], 155, cm,05/07/21 3:26:00 EDT, Height, 83.5, kg, [...] Maintenance, 09/16/20 16:48:00 EDT, Film, [facility]/pharmacy #[id number], Partial fill upon patient request if the prescription is for a schedule II opioid drug., 1 patch Top... Start Date: 09/16/20 Status: Orderedlidocaine 5% topical film 1 patch, Topically, Daily, PRN Pain , Mild, remove after 12 hours, # 13 each, 5 Refills, Maintenance, 03/28/22 23:52:00 EDT, Film, [place], [place] - [phone], Partial fill upon patient request if the prescription is for a schedule... Start Date: 03/28/22 Status: Orderedlisinopril 10 mg oral tablet TAKE [...] Refills, Maintenance, 02/23/21 9:00:00 EDT, ER Capsule, [facility], Partial fill upon patient request if the prescription is for a schedule II opioid drug., 155, cm, 02/23/21 7:57:00 E... Start Date: 02/23/21 Stop Date: 05/24/21 Status: Orderedpantoprazole 40 mg oral delayed release tablet = 40 mg, By Mouth, Daily at bedtime, label in malay, # 30 tablet, 0 Refills, Maintenance, 218:04:00 [...] 12:00:00 EST Start Date: 08/14/19 Status: Ordered Problem List Condition Confirmation Course Effective Dates Status Health Stat us Informant Obese class I Confirmed Active Results Radiology Reports Exam Date Time Procedure Performing Provider Status 03/28/22 10:17 PM Knee 1 or 2 Views Right Billy Jennings; Auth (V erified) Notes:(Knee 1 or 2 Views Right) Reason For Exam: with Pain;PainRESULT: Knee 1 or 2 Views Right Knee 1 or 2 Views Right, views Hx of Present Illness: Patient to ED r t right knee pain x several days denies trauma denies fall, reports hx of arthritisis. no deformity swelling noted. + CSM to RLE; Reason: Pain; with Pain; Clinical Question(s): Fracture COMPARISON: 08/09/2012 FINDINGS: There is no evidence of acute or healing fracture, dislocation or bone lesion. Moderate tricompartmental degenerative osteoarthritis but no evidence of osteochondral defect or intra-articular loose body. No evidence of joint effusion. IMPRESSION: Moderate tricompartmental degenerative osteoarthritis but no acute abnormality. WSN: [id number] Ordering Physician: Sharyn Abdi Dictated By: Gerald Chiu MD Dictated Date/Time: 03/28/22 10:26 p Reviewed By: Gerald Chiu MD Signed By: Gerald Chiu MD Signed Date/Time: 03/28/22 10:26 pm Transcribed By: TONIO Transcribed Date/Time: 03/28/22 10:26 pm Vital Signs Most recent to oldest 1 2 3 [Reference Range]: Height 155 cm 155 cm 155 cm (03/28/22 11:10 PM) (03/28/22 8:58 PM) (03/28/22 8: 48 PM) Weight 82 kg 82 kg 82 kg (03/28/22 11:10 PM) (03/28/22 8:58 PM) (03/28/22 8: 48 PM) Oxygen Saturation [94-100 100 % 100 % %] (03/28/22 11:10 PM) (03/28/22 8:48 PM) Pulse Rate [55-90 bpm] 56 bpm 62 bpm (03/28/22 11:10 PM) (03/28/22 8:48 PM) Body Mass Index [18.5-24.99 34.13 kg/m2 kg/m2] *>HHI* (03/28/22 8:48 PM) Blood Pressure 156/63 mm Hg 216/68 mm Hg [90-138/55-84 mm Hg] *H* *H* (03/28/22 11:10 PM) (03/28/22 8:48 PM) Respiratory Rate [16-30 20 br/min 16 br/min br/min] (03/28/22 11:10 PM) (03/28/22 8:48 PM) Temperature [96.8-100.4 98.9 DegF DegF] (03/28/22 8:48 PM) Mode of Delivery (Oxygen) Room air Room air (03/28/22 11:10 PM) (03/28/22 8:48 PM) Blood pressure sites Arm, right Arm, right (03/28/22 11:10 PM) (03/28/22 8:48 PM) Temperature Route Oral (03/28/22 8:48 PM) Dry Weight 82 kg 82 kg 82 kg (03/28/22 11:10 PM) (03/28/22 8:58 PM) (03/28/22 8: 48 PM) Weight Obtained Via Patient/family stated (03/28/22 8:48 PM) Dry Weight Obtained Via Patient/family stated (03/28/22 8:48 PM) Social History Social History Type Response Smoking Status Never smoker entered on: 04/05/17 Sex XR Knee - right 1 or 2 Views BHSPowerscribe , CIS S: TRANSCRIBE Gerald Chiu MD: VERIFY Event Display: Result: Authored Date: Knee 1 or 2 Views Right, views Hx of Present Illness: Patient to ED r t right knee pain x several days denies trauma denies fall, reports hx of arthritisis. no deformity swelling noted. + CSM to RLE; Reason: Pain; with Pain; Clinical Question(s): Fracture COMPARISON: 08/09/2012 FINDINGS: There is no evidence of acute or healing fracture, dislocation or bone lesion. Moderate tricompartmental degenerative osteoarthritis but no evidence of osteochondral defect or intra-articular loose body. No evidence of joint effusion. IMPRESSION: Moderate tricompartmental degenerative osteoarthritis but no acute abnormality. WSN: [id number] Ordering Physician: Sharyn Abdi Dictated By: Gerald Chiu MD Dictated Date/Time: 03/28/22 10:26 p Reviewed By: Gerald Chiu MD Signed By: Gerald Chiu MD Signed Date/Time: 03/28/22 10:26 pm Transcribed By: TONIO Transcribed Date/Time: 03/28/22 10:26 pm Patient Care team information PersonnelName: Beauzile MD , Thevenin Address: Address: [address] [place] [address]
--- OUTSIDE RECORDS SUMMARY | 2022-04-11 23:57 | XMS_ITS | Continuity of Care Document ---
:1955 Author Organization [facility] Address [address] [place] [address]- Care Team Providers Name Role Phone Ganesh Alvarado MD Primary Care Physician Encounter [facility] Date(s): 01/05/20 - 02/04/20 [facility] [address] [place] [address]- [facility] Allergies, Adverse Reactions, Alerts Substance Reaction Severity [...] 08/14/19 12:00:00 EST Start Date: 08/14/19 Status: OrderedMetoprolol Tartrate 50 mg oral tablet TAKE ONE TABLET BY MOUTH 3 (THREE) TIMES A DAY Start Date: 03/19/19 Status: OrderedProAir HFA 90 mcg/inh inhalation aerosol [...]
--- OUTSIDE RECORDS SUMMARY | 2022-04-11 23:57 | XMS_ITS | Continuity of Care Document ---
:1955 Author Organization [facility] Address [address] [place] [address]- Care Team Providers Name Role Phone Christiano GALVEZ, Ganesh Primary Care Physician Encounter [facility] [place] Date(s): 11/26/20 - 12/26/20 [facility] [address] [place] [id number] Allergies, Adverse Reactions, Alerts Substance Reaction Severity [...] TIMES A DAY Start Date: 03/19/19 Status: [facility] Blood [facility] Monitor See Instructions, # [...] 0 Refills, Maintenance, 09/16/20 16:48:00 EDT, Film, [facility]/pharmacy #[id number], Partial fill upon patient request if the [...] 1 Refills, Maintenance, 09/01/20 14:20:00 EST, Tablet, [place], [place] - [id number], Partial fill upon patient request if the prescription is for a schedule II opioid drug., 155, cm, 02... Start Date: 09/01/20 Stop Date: 02/28/21 Status: Ordered Social History Social History Type Response Smoking Status Never smoker entered on: 04/05/17 Sex Female
--- OUTSIDE RECORDS SUMMARY | 2022-04-11 23:57 | XMS_ITS | Continuity of Care Document ---
:1955 Author Organization [facility] Address [address] [place] [address]- Care Team Providers Name Role Phone Ganesh Alvarado MD Primary Care Physician Encounter [facility] Date(s): 06/06/21 - 07/06/21 [facility] [address] [place] [address]- Allergies, Adverse Reactions, Alerts Substance Reaction Severity [...] 02/22/21 21:04:00 EDT, Route to Pharmacy Electronically, [facility]... Start Date: 02/22/21 Status: OrderedamLODIPine [...] tablet, 4 Refills, Maintenance, 04/01/21 9:51:00 EDT,Tablet, [facility]/pharmacy #[id number], Partial fill upon [...] TIMES A DAY Start Date: 03/19/19 Status: [facility] Blood Pressure Monitor See Instructions, # [...] 04/04/21 11:00:00 EDT, Route to Pharmacy Electronically, [facility]/pharmacy #[id number], Partial fill upon [...] 0 Refills, Maintenance, 09/16/20 16:48:00 EDT, Film, [facility]/pharmacy #[id number], Partial fill upon [...] Refills, Maintenance, 02/23/21 9:00:00 EDT, ER Capsule, [facility], Partial fill upon patient request if the prescription is for a schedule II opioid drug., 155, cm, 02/23/21 7:57:00 E... Start Date: 02/23/21 Stop Date: 05/24/21 Status: Orderedpantoprazole 40 mg oral delayed release tablet = 40 mg, By Mouth, Daily at bedtime, label in american, # 30 tablet, 0 Refills, Maintenance, :04:00 [...]
--- OUTSIDE RECORDS SUMMARY | 2022-04-11 23:57 | XMS_ITS ---
:1955 Author Support Name Relationship Address Phone Alee Amato Unavailable sleeping in car [phone] [place] [address] Jarvis Rosy Magaña Unavailable [phone] [place], [place] PROBLEMS Unknown Problems ALLERGIES No Information ENCOUNTERS Encounter Location Date Diagnosis [facility] [address] [place] [address] [address] [place], [place] [id number] IMMUNIZATIONS No Known Immunizations SOCIAL HISTORY Never Assessed REASON FOR REFERRAL Referring Provider First Name Fili Referring Provider Last Name Zulma Referring Provider Specialty Clinic or group practice Referred Provider Housing,Search FUNCTIONAL STATUS PLAN OF CARE Activity Details Referral Search Housing VITAL SIGNS MEDICATIONS Unknown Medications PROCEDURES No Known procedures RESULTS No Results REASON FOR VISIT Insurance Providers [facility] Health Member Patient Patient Patient Patient Patient Subscriber Subscriber Subscriber Group Insurance Plan Plan Plan Plan ID Relationship Address Phone Name Date of ID Name Date of No Type Insurance Insurance Insurance Coverage to Subscriber Address Phone Name Dates [employer] [phone] [employer] hayden [id number] th Care [id number] th Care Lm Wei [facility] [phone]
--- OUTSIDE RECORDS SUMMARY | 2022-04-11 23:57 | XMS_ITS | Continuity of Care Document ---
:1955 Author Organization [facility] Address [address] [place] [address]- Care Team Providers Name Role Phone Ganesh Alvarado MD Primary Care Physician Encounter [facility] Date(s): 04/01/21 - 05/01/21 [facility] [address] [place] [phone]- Allergies, Adverse Reactions, Alerts Substance Reaction Severity [...] 02/22/21 21:04:00 EDT, Route to Pharmacy Electronically, [facility]... Start Date: 02/22/21 Status: OrderedamLODIPine [...] tablet, 4 Refills, Maintenance, 04/01/21 9:51:00 EDT,Tablet, [facility]/pharmacy #[id number], Partial fill upon [...] 04/04/21 11:00:00 EDT, Route to Pharmacy Electronically, [facility]/pharmacy #[id number], Partial fill upon [...] 0 Refills, Maintenance, 09/16/20 16:48:00 EDT, Film, [facility]/pharmacy #[id number], Partial fill upon [...] Refills, Maintenance, 02/23/21 9:00:00 EDT, ER Capsule, [facility], Partial fill upon [...]
--- OUTSIDE RECORDS SUMMARY | 2022-04-11 23:57 | XMS_ITS | Continuity of Care Document ---
:[address] [facility] Address [address] [place] [address]- Care Team Providers Name Role Phone Christiano GALVEZ, Ganesh Primary Care Physician Encounter [facility] Date(s): 02/21/21 - 03/23/21 [facility] [address] [place], [place] [address] Attending Physician: Loc Brasher Admitting Physician: Loc [...] 02/22/21 21:04:00 EDT, Route to Pharmacy Electronically, [facility]... Start Date: 02/22/21 Status: OrderedColace Clear = 100 mg, By Mouth, 2 times a day, 0 Refills, Maintenance, 08/14/19 10:41:00 EST Start Date: 08/14/19 Status: Orderedenoxaparin 80 mg/0.8 mL injectable solution = 80 mg, Subcutaneous Injection, Every 12 hours, # 30 each, 2 Refills, Maintenance, 02/22/21 21:05:00 EDT, Injection, [facility], Partial fill upon patient [...] TIMES A DAY Start Date: 03/19/19 Status: [place] Blood Pressure Monitor See Instructions, # 1 [...] 02/23/21 9:01:00 EDT, Route to Pharmacy Electronically, [facility], Partial fill upon patient request if [...] 0 Refills, Maintenance, 09/16/20 16:48:00 EDT, Film, [facility]/pharmacy #[id number], Partial fill upon patient [...] Refills, Maintenance, 02/23/21 9:00:00 EDT, ER Capsule, [facility], Partial fill upon patient [...]
--- OUTSIDE RECORDS SUMMARY | 2022-04-11 23:57 | XMS_ITS | Continuity of Care Document ---
:1955 Author Organization [facility] Address [address] [place] [address]- Care Team Providers Name Role Phone Christiano GALVEZ, Ganesh Primary Care Physician Encounter [facility] Date(s): 09/20/20 - 11/20/20 [facility] [address] [place] [id number] Attending Physician: Aroldo Pal MD Admitting [...] TIMES A DAY Start Date: 03/19/19 Status: [facility] Blood Pressure Monitor See Instructions, # [...] Maintenance, 09/16/20 16:48:00 EDT, Film, [facility]/pharmacy #[id number], Partial fill upon patient request if the [...] 1 Refills, Maintenance, 09/01/20 14:20:00 EST, Tablet, [place], [place] - [phone], Partial fill upon patient request if the prescription is for a schedule II opioid drug., 155, cm, 02... Start Date: 09/01/20 Stop Date: 02/28/21 Status: Ordered Social History Social History Type Response Smoking Status Never smoker entered on: 04/05/17 Sex Female
--- OUTSIDE RECORDS SUMMARY | 2022-04-11 23:57 | XMS_ITS | Continuity of Care Document ---
:1955 Author Organization [facility] Address [address] [place] [address]- Care Team Providers Name Role Phone Ganesh Alvarado MD Primary Care Physician Encounter [place] Date(s): 09/03/19 - 09/13/19 [facility] [address] [place] [address]- [facility] Attending Physician: Admleyla, Loc Admitting Physician: Admtr, Ar8 Referring Physician: Admtr, Ar8 Allergies, Adverse Reactions, Alerts Substance Reaction Severity [...]
--- OUTSIDE RECORDS SUMMARY | 2022-04-11 23:57 | XMS_ITS | Continuity of Care Document ---
:1955 Author Organization [facility] Address [address] [place] [address]- Care Team Providers Name Role Phone Christiano GALVEZ, Ganesh Primary Care Physician Encounter [facility] Date(s): 11/19/20 - 11/20/[address] [address] Encounter Diagnosis Atrial fibrillation with RVR (Final) - 11/19/20 Discharge Disposition: A-D/C Home Attending Physician: Prem Azul MD Admitting Physician: Freida Fitzgerald MD Referring Physician: Not on Staff, Referring [...] oral capsule 100 mg, Capsule, By Mouth, 11/20/20 9:00:00 EDT Start Date: 11/20/20 Stop Date: 11/20/20 Status: Completedgabapentin 100 mg oral capsule TAKE ONE CAPSULE BY MOUTH 3 (THREE) TIMES A DAY Start Date: 03/19/19 Status: [facility] Blood [facility] Monitor See Instructions, # [...] 0 Refills, Maintenance, 09/16/20 16:48:00 EDT, Film, [facility]/pharmacy #[id number], Partial fill upon patient request if the prescription is for a schedule II opioid drug., 1 patch Top... Start Date: 09/16/20 Status: Orderedlisinopril 10 mg oral tablet 10 mg, Tablet, By Mouth, Hold for: bp< 100, 11/20/20 9:00:00 EDT Start Date: 11/20/20 Stop Date: 11/20/20 Status: Completedlisinopril 10 mg oral tablet TAKE ONE TABLET BY MOUTH ONCE A DAY Start Date: 03/19/19 Status: OrderedmetFORMIN 500 mg oral tablet, extended release 1 tablet = 500 mg, By Mouth, Daily, # 30 tablet, 0 Refills, Maintenance, 08/14/19 12:00:00 EST Start Date: 08/14/19 Status: Orderedmetoprolol 50 mg oral tablet, extended release 50 mg, XL Tablet, By Mouth, Hold for: bp< 100 , hr< 60, 11/20/20 9:00:00 EDT Start Date: 11/20/20 Stop Date: 11/20/20 Status: Completedmetoprolol 50 mg oral tablet, extended release 50 [...] 1 Refills, Maintenance, 09/01/20 14:20:00 EST, Tablet, [place], [place] - [phone], Partial fill upon patient request if the prescription is for a schedule II opioid drug., 155, cm, 02... Start Date: 09/01/20 Stop Date: 02/28/21 Status: Ordered Results Radiology Reports Exam Date Time Procedure Performing Provider Status 11/19/20 1:30 PM Chest Portable Roz Styles; Auth (Verified ) Notes:(Chest Portable) Reason For Exam: Shortness of BreathRESULT: Chest Portable Chest Portable performed upright at 1:05 PM Hx of Present Illness: from PCP for afib with HR in 130, has had recent visits to ED with afib but not diagnosed with afib. pt was at PCP for DM check and thyroid ca follow up. no acute distress; Reason: Shortness of Breath; Clinical Question(s): CHF COMPARISON: Chest x-rays dated 09/17/2020 and 09/30/2018. FINDINGS: LINES AND TUBES: None. LUNGS AND PLEURA: Clear lungs. Normal pulmonary vascularity. No pleural effusion. No pneumothorax. HEART, MEDIASTINUM AND JAMMIE: Heart is normal in size. Normal upper mediastinal and hilar contour. BONES AND SOFT TISSUES: No acute abnormality. IMPRESSION: No acute abnormality. WSN: [id number] Ordering Physician: Dionisio Amado V Dictated By: Gogo Banerjee MD Dictated Date/Time: 11/19/20 1:37 pm Reviewed By: Gogo Banerjee MD Signed By: Gogo Banerjee MD Signed Date/Time: 11/19/20 1:37 pm Transcribed By: TONIO Transcribed Date/Time: 11/19/20 1:36 pm Vital Signs Most recent to oldest 1 2 3 [Reference Range]: Oxygen Saturation [94-100 %] 99 % 93 % 98 % (11/20/20 12:27 PM) *L* (11/20/20 4:04 AM) (11/20/20 9:17 AM) Pulse Rate [55-90 bpm] 53 bpm 67 bpm 67 bpm *L* (11/20/20 9:54 AM) (11/20/20 9:17 AM) (11/20/20 12:27 PM) Blood Pressure [90-138/55-84 118/58 mm Hg 103/63 mm Hg 103 /63 mm Hg mm Hg] (11/20/20 12:27 PM) (11/20/20 9:54 AM) (11/20/20 9: 54 AM) Respiratory Rate [16-30 20 br/min 18 br/min 18 br/mi n br/min] (11/20/20 12:27 PM) (11/20/20 9:54 AM) (11/20/20 9: 17 AM) Temperature [96.8-100.4 DegF] 98.3 DegF 98.0 DegF 98 DegF (11/20/20 9:17 AM) (11/20/20 4:04 AM) (11/19/20 11: 18 PM) Mode of Delivery (Oxygen) Room air Room air Room a ir (11/20/20 12:27 PM) (11/20/20 9:17 AM) (11/20/20 4: 04 AM) Blood pressure sites Arm, left Arm, left Arm, left (11/20/20 12:27 PM) (11/20/20 9:17 AM) (11/20/20 4: 04 AM) Temperature Route Oral Oral Oral (11/20/20 12:27 PM) (11/20/20 9:17 AM) (11/20/20 4: 04 AM) Social History Social History Type Response Smoking Status Never smoker entered on: 04/05/17 Sex Female
--- OUTSIDE RECORDS SUMMARY | 2022-04-11 23:57 | XMS_ITS | Continuity of Care Document ---
:1955 Author Organization [facility] Address [address] [place] [address]- Care Team Providers Name Role Phone Christiano GALVEZ, Ganesh Primary Care Physician En[facility] [place] Date(s): 09/22/20 - 10/22/20 [facility] [address] [place] [id number] Allergies, Adverse Reactions, Alerts Substance Reaction [...] 0 Refills, Maintenance, 09/16/20 16:48:00 EDT, Film, [facility]/pharmacy #[id number], Partial fill upon patient request [...] Refills, Maintenance, 10/12/20 11:10:00 EDT, ER Capsule, [facility]/pharmacy #[id number], Partial fill upon patient request [...] 1 Refills, Maintenance, 09/01/20 14:20:00 EST, Tablet, [facility] [place] - [phone], Partial fill upon patient request if the prescription is for a schedule II opioid drug., 155, cm, 02... Start Date: 09/01/20 Stop Date: 02/28/21 Status: Ordered Social History Social History Type Response Smoking Status Never smoker entered on: 04/05/17 Sex Female
--- NOTE | 2022-04-12 00:51 | ED.EXTPRO ---
HPI - Extremity Problem General Chief complaint: Extremity Problem Stated complaint: right knee pain Time Seen by Provider: 04/11/22 23:44 History of Present Illness HPI Narrative: Patient is a 67-year-old female presents today with having pain to the right knee. The pain is worse with movement. Similar to previous bouts of arthritis. Patient denies any trauma. Denies any leg swelling. Denies any bowel urinary incontinence. Pain is localized. It has been ongoing for days. Related Data Home Medications Medication Instructions Recorded Confirmed alcohol swabs 1 pad topical diabetes mellitus 05/11/20 04/11/22 gabapentin 100 mg capsule 100 mg PO TID 05/11/20 04/11/22 lancets 28 gauge #100 ea 05/11/20 04/11/22 docusate sodium 100 mg capsule 100 mg PO DAILY 05/25/20 04/11/22 (Colace) albuterol sulfate 2.5 mg/3 mL mg inhalation Q6H 10/06/20 04/11/22 (0.083 %) solution for nebulization ibuprofen 400 mg tablet 400 mg PO Q6H PRN pain 10/06/20 04/11/22 amiodarone 200 mg tablet 200 mg PO DAILY 11/30/21 04/11/22 apixaban 5 mg tablet (Eliquis) 5 mg PO BID 11/30/21 04/11/22 blood-glucose meter (OneTouch #1 ea 11/30/21 04/11/22 Ultra2 Meter) furosemide 20 mg tablet 20 mg PO DAILY 11/30/21 04/11/22 lancets 33 gauge (OneTouch Delica #100 ea 11/30/21 04/11/22 Lancets) metoprolol succinate 100 mg 100 mg PO DAILY 11/30/21 04/11/22 tablet,extended release 24 hr blood sugar diagnostic (OneTouch 04/11/22 04/11/22 Ultra Test strips) Previous Rx's Medication Instructions Recorded lisinopril 10 mg tablet 10 mg PO DAILY 90 days #90 tabs 05/25/20 pen needle, diabetic 32 gauge x 1 ea subcut DAILY 30 days #30 ea 11/04/20 (Comfort EZ Pen [place]) metformin 500 mg tablet,extended 500 mg PO BID 90 days #180 tabs 11/19/20 release 24 hr amlodipine 5 mg tablet 5 mg PO DAILY #90 tabs 06/03/21 albuterol sulfate 90 mcg/actuation 2 puff inhalation Q6H PRN for 11/22/21 aerosol inhaler wheezing #8.5 grams dulaglutide 3 mg/0.5 mL 3 mg (0.5 mL) subcut QWEEK 90 days 12/09/21 subcutaneous pen injector #2 mL (Trulicity) insulin degludec 100 unit/mL (3 20 unit (0.2 mL) subcut QAM 90 12/09/21 mL) subcutaneous pen days #18 mL cholecalciferol (vitamin D3) 50 50 mcg PO DAILY #30 caps 12/20/21 mcg (2,000 unit) capsule (D3-1999) levothyroxine 88 mcg tablet 88 mcg PO DAILY 90 days #112 tabs 12/23/21 rosuvastatin 40 mg tablet 40 mg PO DAILY 90 days #90 tabs 12/23/21 Allergies Allergy/AdvReac Type Severity Reaction Status Date / Time empagliflozin Allergy Intermediate ITCHY/RASH Verified 04/11/22 12:04 [From JARDIANCE] JARDIANCE Allergy Intermediate pruritus Uncoded 04/11/22 12:04 Review of Systems Review of Systems: Positive right knee pain. No bowel urinary incontinence. No focal weakness. Yes all other systems are reviewed and are negative [facility] Past Medical History Attestation statement: The following information was validated with the patient. 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 Mother Arthritis Social History Social History Household Members: None Patient Tobacco Use Status: Never used Tobacco Advance Directives: No Advance Directives Information Provided: No Physical Exam Vital Signs: Vital Signs: Last Vital Signs Temp 98.1 F 04/11/22 21:16 Pulse 65 04/11/22 23:50 Resp 18 04/11/22 23:50 BP 176/74 H 04/11/22 23:50 Pulse Ox 96 04/11/22 23:50 O2 Del Method 04/11/22 23:50 BMI result Body Mass Index 34.0 Appearance: Alert. Oriented X3. No acute distress. Eyes: Pupils equal, round and reactive to light. ENT: Pharynx normal. Neck: Normal inspection. Neck supple. No lymph nodes noted. No crepitus CVS: Normal heart rate and rhythm. Pulses normal. Normal S1 and S2 Respiratory: No respiratory distress. Breath sounds normal. No Wheezing. No rales Abdomen: Soft and nontender. No rigidity. No distention. good BS x4 Skin: Skin warm and dry. Normal skin color. Normal skin turgor. Extremities: No lower extremity edema. Examination of the right knee showed no patellar tenderness. No medial or lateral collateral ligament tenderness. There is no effusion noted on exam. Range of motion is grossly intact. Patient is ambulatory. Distal pulses intact. Skin intact. Neuro: Oriented X 3. No motor deficit. No sensory deficit. Moving all extermities. No slurred speech MDM - Extremity (Nontraumatic) MDM Narrative Medical decision making narrative: Just had x-ray done in December for the same. Patient well appearing no distress. Same pain as prior. Will ask patient to apply ice. Motrin as needed. Tylenol for pain. Follow-up with primary on an outpatient basis. Discharge Plan Discharge Clinical Impression: Arthritis Patient Disposition: Home, Self-Care Instructions: Osteoarthritis (ED) Additional Instructions: Ice. Rest. Motrin and Tylenol for for pain. Prescriptions: No Action pen needle, diabetic [Comfort EZ Pen [place]] 32 gauge x 5/32 needle 1 ea subcut DAILY 30 Days Qty: 30 7RF amlodipine 5 mg tablet 5 mg PO DAILY Qty: 90 1RF albuterol sulfate 90 mcg/actuation HFA aerosol inhaler 2 puff inhalation Q6H PRN (Reason: for wheezing) Qty: 8.5 11RF Trulicity 3 mg/0.5 mL pen injector 3 mg subcut QWEEK 90 Days Qty: 2 4RF Rx Instructions: Dose increased to 3 mg weekly. insulin degludec 100 unit/mL (3 mL) insulin pen 20 unit subcut QAM 90 Days Qty: 18 1RF cholecalciferol (vitamin D3) [D3-2000] 50 mcg (2,000 unit) capsule 50 mcg PO DAILY Qty: 30 8RF rosuvastatin 40 mg tablet 40 mg PO DAILY 90 Days Qty: 90 2RF levothyroxine 88 mcg tablet 88 mcg PO DAILY 90 Days Qty: 112 1RF Rx Instructions: One tablet Sunday through Sunday 1.5 tablets Sundays alcohol swabs Pads, Medicated 1 pad topical gabapentin 100 mg capsule 100 mg PO TID (DME) lancets 28 gauge misc See Rx Instructions .ROUTE QID Qty: 100 Rx Instructions: As directed docusate sodium [Colace] 100 mg capsule 100 mg PO DAILY lisinopril 10 mg tablet 10 mg PO DAILY 90 Days Qty: 90 2RF metformin 500 mg tablet extended release 24 hr 500 mg PO BID 90 Days Qty: 180 1RF albuterol sulfate 2.5 mg /3 mL (0.083 %) solution for nebulization inhalation Q6H ibuprofen 400 mg tablet 400 mg PO Q6H PRN (Reason: pain) metoprolol succinate 100 mg tablet extended release 24 hr 100 mg PO DAILY furosemide 20 mg tablet 20 mg PO DAILY Eliquis 5 mg tablet 5 mg PO BID (DME) blood-glucose meter [OneTouch Ultra2 Meter] Misc See Rx Instructions Not Applicable DAILY Qty: 1 Rx Instructions: As directed (DME) lancets [OneTouch Delica Lancets] 33 gauge misc See Rx Instructions topical QID Qty: 100 Rx Instructions: As directed amiodarone 200 mg tablet 200 mg PO DAILY (DME) OneTouch Ultra Test Strip See Rx Instructions .Route Rx Instructions: As directed Referrals: Physician,Unknown J [Primary Care Provider] - 04/14/22 Print Language: Kinyarwanda
== END 2022-04-12 01:03 | disposition home or self-care (01) ==
PROVIDERS: Emergency Provider Emergency Medicine Emergency Medical Services
DX: M17.11 Unilateral primary osteoarthritis, right knee (principal); Z79.899 Other long term (current) drug therapy
CPT/HCPCS: 99283

== ENCOUNTER 2022-05-10 12:19 | Outpatient (REF) | payer OTHER, MEDICAID, SELFPAY ==
--- NOTE | ~2022-05-10 | XR_ITS ---
EXAMINATION: XR KNEE AP STANDING, BILATERAL XR KNEE, RIGHT CLINICAL INFORMATION: Right knee pain. COMPARISON: Right knee 01/06/2022. TECHNIQUE: AP bilateral standing view of the knees was obtained along with one additional view right knee. FINDINGS: Marked degenerative changes are present in the knees, predominantly bicompartmental with narrowing of the medial and lateral compartments. Marked narrowing is present in the medial compartments, left greater than right with associated osteophyte formation and sclerosis. The degree of narrowing on the right appears slightly greater on the current study which was done standing. A lesser degree of narrowing is present in the lateral compartments but marginal osteophytes are seen. A single sunrise view of the right patellofemoral joint shows some mild degenerative change. XR/XR knee RT 1V IMPRESSION: Degenerative changes both knees, left greater than right.
--- NOTE | ~2022-05-10 | XR_ITS ---
EXAMINATION: XR KNEE AP STANDING, BILATERAL XR KNEE, RIGHT CLINICAL INFORMATION: Right knee pain. COMPARISON: Right knee 01/06/2022. TECHNIQUE: AP bilateral standing view of the knees was obtained along with one additional view right knee. FINDINGS: Marked degenerative changes are present in the knees, predominantly bicompartmental with narrowing of the medial and lateral compartments. Marked narrowing is present in the medial compartments, left greater than right with associated osteophyte formation and sclerosis. The degree of narrowing on the right appears slightly greater on the current study which was done standing. A lesser degree of narrowing is present in the lateral compartments but marginal osteophytes are seen. A single sunrise view of the right patellofemoral joint shows some mild degenerative change. XR/XR knee standing BI IMPRESSION: Degenerative changes both knees, left greater than right.
== END 2022-05-10 12:20 | disposition home or self-care (01) ==
LOC: HO.HOSX 12:19
PROVIDERS: Visit Provider Physician Assistant
DX: M17.0 Bilateral primary osteoarthritis of knee (principal)
CPT/HCPCS: 73560; 73565; 99202; 99212

== ENCOUNTER → 2022-05-17 10:47 | Outpatient (BNVA) | payer OTHER, MEDICAID, SELFPAY | PROVIDERS: PCP Internal Medicine; Visit Provider Registered Nurse Diabetes Educator | DX: E11.649 Type 2 diabetes mellitus with hypoglycemia without coma (principal) | CPT/HCPCS: 99211 ==

== ENCOUNTER 2022-06-12 08:58 | Outpatient (REF) | payer OTHER, MEDICAID, SELFPAY ==
[2022-06-12 11:51] LABS: Thyroid Stimulating Hormone 5.65 uIU/mL (0.32-4.0)
== END 2022-06-12 08:59 | disposition home or self-care (01) ==
LOC: HO.10HDL 08:58
PROVIDERS: Visit Provider Internal Medicine Endocrinology, Diabetes & Metabolism
DX: C73 Malignant neoplasm of thyroid gland (principal); E11.649 Type 2 diabetes mellitus with hypoglycemia without coma
CPT/HCPCS: 36415; 84439; 84443; 99211

== ENCOUNTER → 2022-07-10 08:46 | Outpatient (BNVA) | payer OTHER, MEDICAID, SELFPAY | PROVIDERS: PCP Internal Medicine; Visit Provider Registered Nurse Diabetes Educator | DX: E11.649 Type 2 diabetes mellitus with hypoglycemia without coma (principal) | CPT/HCPCS: 99211 ==

== ENCOUNTER 2022-07-27 11:00 | Outpatient (RCR) | payer OTHER, MEDICAID, SELFPAY | END 2023-01-04 13:13 | disposition home or self-care (01) | LOC: HO.PT 11:00 | PROVIDERS: Visit Provider Physician Assistant | DX: M17.0 Bilateral primary osteoarthritis of knee (principal) | CPT/HCPCS: 97110; 97162 ==

== ENCOUNTER 2023-01-22 12:24 | Outpatient (AMB) | payer OTHER, MEDICAID, SELFPAY ==
--- NOTE | 2023-01-22 12:30 | A.OFFVIS_ITS ---
Intake Intake Visit Reasons: DM Poultry Field Service Technician Required: Yes Poultry Field Service Technician Name: [id number] Rosy Information Interpreted: non-clinical & clinical Allergies empagliflozin [From JARDIANCE] Allergy (Intermediate, Verified 05/10/22 11:04) ITCHY/RASH JARDIANCE Allergy (Intermediate, Uncoded 04/11/22 12:04) pruritus HPI Comprehensive Diabetes Asmnt Most Recent Diabetes Results: No Data to Display PFSH Medical History Asthma Diabetes type 2, uncontrolled Dyslipidemia Essential hypertension Hyperparathyroidism Hypoglycemia unawareness associated with type 2 diabetes mellitus longterm (current) use of insulin Obesity (BMI 30-39.9) Pericardial effusion Pleural effusion Pneumonitis Post-surgical hypothyroidism Postsurgical hypothyroidism Thyroid cancer Vitamin D deficiency Surgical History Hx of colonoscopy Hx of hysterectomy Hx of total thyroidectomy Family History Father No problems noted. Mother Arthritis Social History (Updated 05/10/22 @ 11:04 by Shakeel Conley) Household Members: None Alcohol intake: never Patient Tobacco Use Status: Never used Tobacco Current occupational status: disabled Assessment & Plan Assessment & Plan (1) Hypoglycemia unawareness associated with type 2 diabetes mellitus: Code(s): E11.649 - Type 2 diabetes mellitus with hypoglycemia without coma Plan: CGM Info Patient reports she is taking Tresiba 25 units daily, patient is not taking Humalog before meals Patient is only testing glucose once a day Fasting glucose range between 95-185 mg/dL Instructed Pt on what CGM can and can't do CGM Can: Give Pt minute by minute reading of glucose levels Displays glucose trend arrows that represents the direction glucose levels are fluctuating Give insight on decisions about how to dose insulin CGM cannot: Improve glucose control on its own Completely eliminate the need for all finger sticks Make dosing decision for you CGM is the reading of glucose in the interstitial fluid not actual blood glucose, finger sticks are still necessary when Pt's symptom?s do not match sensor reading and if sensors prompts Pt to do a fingerstick Patient? is interested in the Dexcom G7 Reviewed Medicare guidelines for obtaining CGM Reviewed delay of CGM from fingersticks Reminded pt that if symptoms do not match sensor still needs to check fingersticks. Coding Level of Care Code Est Pt Level 1 (66457) Diagnoses Hypoglycemia unawareness associated with type 2 diabetes mellitus E11.649
== END 2023-01-22 13:02 | disposition home or self-care (01) ==
PROVIDERS: PCP Internal Medicine; Referring Provider Internal Medicine; Visit Provider Registered Nurse Diabetes Educator
DX: E11.649 Type 2 diabetes mellitus with hypoglycemia without coma (principal)

== ENCOUNTER → 2023-01-22 12:24 | Outpatient (BNVA) | payer OTHER, MEDICAID, SELFPAY | PROVIDERS: Visit Provider Registered Nurse Diabetes Educator | DX: E11.649 Type 2 diabetes mellitus with hypoglycemia without coma (principal) | CPT/HCPCS: 99211 ==

== ENCOUNTER 2023-02-09 12:22 | Outpatient (AMB) | payer MEDICARE, MEDICAID, SELFPAY ==
--- NOTE | 2023-02-09 12:24 | A.OFFVIS_ITS ---
Intake Vital Signs 02/09/23 12:27 Height 5 ft 1 in Weight 186 lb 11.704 oz BMI 35.3 BP 132/76 Blood Pressure Location Lt brachial Position Sitting Pulse 61 Pulse Source Pulse Oximeter Intake Visit Reasons: f/u Type 2 DM and thyroid Cancer Intake Note: Patient here today for Diabetes type 2, and thyroid cancer. For eye care patient last seen approx 2021. For foot care patient does not see podiatry. POC- 193 A1c- 8.4% Warehouse Distribution Associate Required: Yes Warehouse Distribution Associate Language: Falsework Builder Name: Yojana Information Interpreted: non-clinical & clinical Accompanied by: Self / Same As Patient Allergies empagliflozin [From JARDIANCE] Allergy (Intermediate, Verified 02/09/23 12:30) ITCHY/RASH JARDIANCE Allergy (Intermediate, Uncoded 04/11/22 12:04) pruritus Medication List - Last Reconciled 02/09/23 by Kofi Naidu MD albuterol sulfate mg inhalation Q6H albuterol sulfate 90 mcg/actuation 2 puffs inhalation Q6H PRN amiodarone 200 mg PO DAILY apixaban (Eliquis) 5 mg PO BID blood sugar diagnostic (Plainlegal Ultra Test strips) As directed checks 4 X/day blood-glucose meter (AnaptysBiouch Ultra2 Meter) As directed cholecalciferol (vitamin D3) (D3-2000) 50 mcg PO DAILY dulaglutide (Trulicity) 3 mg (0.5 mL) subcut QWEEK 90 days furosemide 20 mg PO DAILY gabapentin 300 mg PO BID ibuprofen 400 mg PO Q6H PRN insulin degludec 16 units (0.16 mL) subcut QAM 90 days insulin lispro (Humalog KwikPen (U-100) Insulin) 6 units (0.06 mL) subcut QAM lancets As directed lancets (SendTaskTouch Delica Plus Lancet) USE TO TEST BLOOD SUGAR FOUR TIMES DAILY levothyroxine 100 mcg PO DAILY lisinopril 10 mg PO DAILY 90 days metformin ER 500 mg PO BID 90 days metoprolol succinate ER 100 mg PO DAILY pen needle, diabetic (Comfort EZ Pen [place]) 1 ea subcut .4x daily 30 days rosuvastatin 40 mg PO DAILY 90 days HPI HPI Comments History of Present Illness Details 68 yo female today for follow-up visit,for PTC and for diabetes management She had a whole body scan on 09/29/2020, 48 hours radioactive iodine uptake in the neck was 0.1%. There was a faint focus of radiotracer uptake in the left hypo pharyngeal wall. There was no corresponding abnormality in CT images. Her TSH was 30.16 this was a withdrawal scan. The TG level was 0.6 ng/mL. Her meter download from 01/26/2023 to 02/09/2023 11showed she is checking her point of cares once a day. An average blood sugar 139 mg per dL. The range is 95-186mg per dL. She is 86% in target range. 14% above target. She does not have any episode of hypoglycemia. Her fasting blood sugars are not all the time at goal. Son blood sugars fasting as are not really fasting are after coffee. She has been on Levothyroxine 88 mcg QD since 2 wks ago Her last thyroglobulin level was detectable 0.1 ng per dL on a nonsuppressed TSH. Prior to that her TG was undetectable. 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 She had ablation with GALAVIZ 104.7 mCi od I 131 on 10/12/17. She had WBS post ablation scan on 09/21/17 , with TSH 38 MIU/ml, showed no metastasis , only uptake in the neck. She had total thyroidectomy on 05/02/[address] Whalen. Histology report : tumor size 3.2 x 3.0 x 2.9 cm, papillary thyroid cancer classic variant. Positive lymphovascular extension, positive perineural extension, positive extrathyroidal extension to soft tissue , but not to skeletal muscle, margins free of tumor, LN examined 3/4 positive for tumor. Left upper parathyroid gland was hyperplastic and was removed. Stage is IV a ( T3, N1a, Mx) recent thyroid ultrasound showed no abnormal lymph nodes She reports having occasional palpitations, Denies cold or heat intolerance, she gained 2 lb since last visit, positive constipation, no insomnia, fatigue, dry skin, denies dysphagia, no dyspnea, dysphonia, denies tremors, no irritability, anxiety. She denies nocturia, denies polyuria, polydipsia, numbness, tingling, blurred vision. She has diabetes type 2 diagnosed 20 years ago. . She is currently on Tresiba 16 units in the morning only Humalog 6 units in AM, trulicity 3 mg weekly , Metformin 1 ER 500 mg bid. Has occasional hypoglycemia daily -No She tried Jardiance and Farxiga but had yeast infection. She has not known retinopathy, nephropathy, neuropathy, CVA, CAD, PVD. Last ophthalmology evaluation a while ago . Needs to make appt : no retinopathy. .Needs to see optho 02/12/18 DEXA scan normal range BMD and T-score in all sites. Laboratory Tests 09/20/20 09/20/20 11/04/20 14:02 14:02 12:45 TSH 3.62 Free T4 0.51 L Thyroglobulin 0.6 H Thyroglobulin Anti body <1 Laboratory Tests 09/07/20 12:52 TSH 12.85 H Free T4 0.48 L Laboratory Tests 12/11/19 12/11/19 03/12/20 09:30 09:59 11:37 Hgb Hct Sodium Potassium Bicarbonate 26 Creatinine Estimated GFR Hgb A1c Fingerstic k 7.6 9.0 Fructosamine Calcium AST ALT Albumin Triglycerides Cholesterol LDL Cholesterol Di rect LDL Cholesterol, C alc HDL Cholesterol Vitamin B12 25-OH Vitamin D To mary 1,25 Dihydroxy Vit D TSH Free T4 Thyroglobulin TSH 3rd Generation 0.22 L PTH Intact Calcium (PTH Intac t) Microalb/Creat Rat io Thyroglobulin Anti body 05/25/20 05/25/20 05/25/20 10:10 10:10 10:10 Hgb 10.3 L Hct 36.5 L Sodium 143 Potassium 4.8 Bicarbonate Creatinine 0.83 Estimated GFR > 60 Hgb A1c Fingerstic k Fructosamine 260 Calcium 9.3 AST 14 ALT 8 Albumin 3.7 Triglycerides 94 Cholesterol 186 LDL Cholesterol Di rect 139 H LDL Cholesterol, C alc 127 HDL Cholesterol 41 Vitamin B12 25-OH Vitamin D To mary 50.3 1,25 Dihydroxy Vit D 29 TSH 0.40 Free T4 1.32 Thyroglobulin TSH 3rd Generation PTH Intact 32 Calcium (PTH Intac t) 9.5 Microalb/Creat Rat io Thyroglobulin Anti body 05/25/20 05/25/20 05/25/20 10:10 10:10 10:10 Hgb Hct Sodium Potassium Bicarbonate Creatinine Estimated GFR Hgb A1c Fingerstic k Fructosamine Calcium AST ALT Albumin Triglycerides Cholesterol LDL Cholesterol Di rect LDL Cholesterol, C alc HDL Cholesterol Vitamin B12 372 25-OH Vitamin D To mary 1,25 Dihydroxy Vit D TSH Free T4 Thyroglobulin <0.1 TSH 3rd Generation PTH Intact Calcium (PTH Intac t) Microalb/Creat Rat io 12.6 Thyroglobulin Anti body <1 PFSH Medical History Asthma Diabetes type 2, uncontrolled Dyslipidemia Essential hypertension Hyperparathyroidism Hypoglycemia unawareness associated with type 2 diabetes mellitus [facility] (current) use of insulin Obesity (BMI 30-39.9) Pericardial effusion Pleural effusion Pneumonitis Post-surgical hypothyroidism Postsurgical hypothyroidism Thyroid cancer Vitamin D deficiency Surgical History Hx of colonoscopy Hx of hysterectomy Hx of total thyroidectomy Family History Father No problems noted. Mother Arthritis Social History Household Members: None Alcohol intake: never Patient Tobacco Use Status: Never used Tobacco Current occupational status: disabled Physical Exam Vital Signs: Last Vital Signs Pulse 61 02/09/23 12:27 BP 132/76 02/09/23 12:27 BMI result Body Mass Index 35.3 Absence of Cushingoid features. Absence of acromegalic features. Neck exam reveals healed scar status post thyroidectomy. There is no cervical adenopathy palpated. No carotid bruits present. Lungs CTA. Heart S1 S2, Reg R/R. No M/R/ G. Skin exam reveals absence of vitiligo or acanthosis nigricans. Abdominal exam reveals Soft NT/ND with NA BS. No organomegaly present. Neck Other: . Extrem Other: Visual exam of foot performed. No ulcerations or open lesions. No onchomycosis, no callouses.Pulses 2 + distally Sensation intact to monofilament exam. Vibratory sensation sensed is decreased with 128 Hz tuning fork Assessment & Plan Assessment & Plan (1) Thyroid cancer: Code(s): C73 - Malignant neoplasm of thyroid gland Plan: Status post total thyroidectomy with radioactive iodine therapy. Currently replaced on levothyroxine 100 mcgQD. Appears to be clinically euthyroid. Does have detectable thyroglobulin in past but thyroglobulin has been stable recent neck ultrasound showed no abnormal lymph nodes. Plan is to recheck TSH and free T4 as well as thyroglobulin (2) Diabetes type 2, uncontrolled: Code(s): E11.65 - Type 2 diabetes mellitus with hyperglycemia Plan: This is a 68-year-old female with a history of type 2 diabetes being treated with metformin, Trulicity and basal insulin with poor glycemic control and no known microvascular or macrovascular complications . Plan is that the patient should check her point cares pre and post meals . She would benefit from use of a freestyle Jamal 2 personal if insurance would pay. Will try to get a Jamal 2 . Can not make any adjustments to regimen with lack of data Most likely. . Will have her follow up with community educator Orders: Orders Free T4 (Free Thyroxine) Today C73 - Malignant neoplasm of thyroid gland Thyroid Stimulating Hormone Today C73 - Malignant neoplasm of thyroid gland Thyroglobulin Today C73 - Malignant neoplasm of thyroid gland Coding Level of Care Code Est Pt Level 4 (18645) Diagnoses Thyroid cancer C73 Diabetes type 2, uncontrolled E11.65
[2023-02-09 12:27] VITALS: BP 132/76; PULSE 61; BMI 35.3
[2023-02-09 12:41] LABS: Glucose, Whole Blood 193 mg/dL (60-115)
== END 2023-02-09 12:57 | disposition home or self-care (01) ==
PROVIDERS: PCP Internal Medicine; Visit Provider Internal Medicine Endocrinology, Diabetes & Metabolism
DX: C73 Malignant neoplasm of thyroid gland (principal); E11.65 Type 2 diabetes mellitus with hyperglycemia
CPT/HCPCS: 99214

== ENCOUNTER → 2023-02-09 12:22 | Outpatient (BNVA) | payer MEDICARE, MEDICAID, SELFPAY | PROVIDERS: Visit Provider Internal Medicine Endocrinology, Diabetes & Metabolism | DX: C73 Malignant neoplasm of thyroid gland (principal); E89.0 Postprocedural hypothyroidism; E11.65 Type 2 diabetes mellitus with hyperglycemia; Z79.4 Long term (current) use of insulin; Z79.85 Long-term (current) use of injectable non-insulin antidiabetic drugs | CPT/HCPCS: 82947; 83036; 99212 ==

== ENCOUNTER 2023-02-19 12:24 | Outpatient (REF) | payer OTHER, SELFPAY | END 2023-02-19 12:25 | disposition home or self-care (01) | LOC: HO.MAMMO 12:24 | PROVIDERS: PCP Internal Medicine; Visit Provider Internal Medicine | DX: Z12.31 Encounter for screening mammogram for malignant neoplasm of breast (principal) | CPT/HCPCS: 77063; 77067 ==

== ENCOUNTER → 2023-02-19 12:45 | Outpatient (BNV) | payer OTHER, SELFPAY | PROVIDERS: PCP Internal Medicine; Visit Provider Radiology Diagnostic Radiology | DX: Z12.31 Encounter for screening mammogram for malignant neoplasm of breast (principal) | CPT/HCPCS: 77063; 77067 ==

== ENCOUNTER 2023-02-22 13:12 | Outpatient (AMB) | payer OTHER, MEDICAID, SELFPAY ==
--- NOTE | 2023-02-22 13:35 | A.OFFVIS_ITS ---
Intake Intake Visit Reasons: DM, CGM setup Glass Furnace Tender Required: Yes Glass Furnace Tender Language: Inspector Material Disposition Name: Mikey [id number] Information Interpreted: non-clinical & clinical Allergies empagliflozin [From JARDIANCE] Allergy (Intermediate, Verified 02/09/23 12:30) ITCHY/RASH JARDIANCE Allergy (Intermediate, Uncoded 04/11/22 12:04) pruritus HPI Comprehensive Diabetes Asmnt Most Recent Diabetes Results: No Data to Display PFSH Medical History Asthma Diabetes type 2, uncontrolled Dyslipidemia Essential hypertension Hyperparathyroidism Hypoglycemia unawareness associated with type 2 diabetes mellitus custodial (current) use of insulin Obesity (BMI 30-39.9) Pericardial effusion Pleural effusion Pneumonitis Post-surgical hypothyroidism Postsurgical hypothyroidism Thyroid cancer Vitamin D deficiency Surgical History Hx of colonoscopy Hx of hysterectomy Hx of total thyroidectomy Family History Father No problems noted. Mother Arthritis Social History Household Members: None Alcohol intake: never Patient Tobacco Use Status: Never used Tobacco Current occupational status: disabled Assessment & Plan Assessment & Plan (1) Hypoglycemia unawareness associated with type 2 diabetes mellitus: Code(s): E11.649 - Type 2 diabetes mellitus with hypoglycemia without coma Plan: Pt did not have CGM supplies deliver Will reschedule appointment Coding Level of Care Code Est Pt Level 1 (98378) Diagnoses Hypoglycemia unawareness associated with type 2 diabetes mellitus E11.649
== END 2023-02-22 13:48 | disposition home or self-care (01) ==
PROVIDERS: PCP Internal Medicine; Visit Provider Registered Nurse Diabetes Educator
DX: E11.649 Type 2 diabetes mellitus with hypoglycemia without coma (principal)

== ENCOUNTER → 2023-02-22 13:12 | Outpatient (BNVA) | payer OTHER, MEDICAID, SELFPAY | PROVIDERS: PCP Internal Medicine; Visit Provider Registered Nurse Diabetes Educator | DX: E11.649 Type 2 diabetes mellitus with hypoglycemia without coma (principal) | CPT/HCPCS: 99211 ==

== ENCOUNTER 2023-02-27 08:36 | Outpatient (AMB) | payer OTHER, SELFPAY ==
[2023-02-27 08:52] VITALS: BP 142/80; BMI 35.0
--- NOTE | 2023-02-27 08:52 | MHC.PC.OV ---
Vital Signs 02/27/23 08:52 02/27/23 10:02 Height 5 ft 1 in Weight 185 lb BMI 35.0 BP 142/80 H 138/80 Blood Pressure Location Lt brachial Lt brachial Position Sitting Sitting Intake Visit Reasons: New [id number] BP Intake Note: Patient here to re-establish care, diabetes, bp Qc Lab Technician Required: No Accompanied by: Self / Same As Patient Allergies empagliflozin [From JARDIANCE] Allergy (Intermediate, Verified 02/27/23 09:10) ITCHY/RASH JARDIANCE Allergy (Intermediate, Uncoded 02/27/23 09:10) pruritus Medication List - Last Reconciled 02/27/23 by Jo Montiel MD albuterol sulfate mg inhalation Q6H albuterol sulfate 90 mcg/actuation 2 puffs inhalation Q6H PRN amiodarone 200 mg PO DAILY apixaban (Eliquis) 5 mg PO BID blood sugar diagnostic (Nano Magneticsuch Ultra Test strips) As directed checks 4 X/day blood-glucose meter (Home Comfort ZonesTouch Ultra2 Meter) As directed cholecalciferol (vitamin D3) (D3-2000) 50 mcg PO DAILY dulaglutide (Trulicity) 3 mg (0.5 mL) subcut QWEEK 90 days furosemide 20 mg PO DAILY gabapentin 300 mg PO BID ibuprofen 400 mg PO Q6H PRN insulin degludec 16 units (0.16 mL) subcut QAM 90 days insulin lispro (Humalog KwikPen (U-100) Insulin) 6 units (0.06 mL) subcut QAM lancets As directed lancets (OneTouch Delica Plus Lancet) USE TO TEST BLOOD SUGAR FOUR TIMES DAILY levothyroxine 100 mcg PO DAILY lisinopril 10 mg PO DAILY 90 days metformin ER 500 mg PO BID 90 days metoprolol succinate ER 100 mg PO DAILY pen needle, diabetic (Comfort EZ Pen [place]) 1 ea subcut .4x daily 30 days rosuvastatin 40 mg PO DAILY 90 days Tobacco use date assessed: 02/27/23 Fall risk assessment: No Falls in past year Last assessed Fall Risk: 02/27/23 Dental Screening Dental Screen Date: 02/27/23 Did you have a dental visit in the last 12 months?: Yes Did you have a dental problem in the last 6 months where you did not have access to dental care?: No Was dental information given to patient?: Patient has dentist HPI HPI Comments History of Present Illness Details This is a 68-year-old female with diabetes mellitus type 2, hypertension, dyslipidemia, atrial fibrillation and postsurgical hypothyroidism that comes today to reestablish care. Last A1c was elevated and this is follow by Endocrinology. Blood pressure borderline normal to elevated and will be monitor. Lipid panel and TSH were ordered. Has atrial fibrillation on chronic anticoagulation. Denies any chest pain or shortness of breath. Complains of bilateral knee pain. No palpitations or leg swelling. 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 Mother Arthritis Social History Household Members: None Housing: Apartment Alcohol intake: never Patient Tobacco Use Status: Never used Tobacco e-Cigarette/Vaping Use: Never Used Second Hand Smoke Exposure: No service: No Current occupational status: disabled Cognitive needs: No Hearing needs: No Vision needs: No Questionnaire PHQ-9 Over the last 2 weeks, how often have you been bothered by any of the following problems? 1. Little interest or pleasure in doing things: not at all 2. Feeling down, depressed, or hopeless: several days 3. Trouble falling or staying asleep, or sleeping too much: several days 4. Feeling tired or having little energy: not at all 5. Poor appetite or overeating: not at all 6. Feeling bad about yourself - or that you are a failure or have let yourself or your family down: not at all 7. Trouble concentrating on things, such as reading the newspaper or watching television: not at all 8. Moving or speaking so slowly that other people could have noticed. Or the opposite - being so fidgety or restless that you have been moving around a lot more than usual: not at all 9. Thoughts that you would be better off or of hurting yourself in some way: not at all Total score: 2 Depression Screening Interpretation: Negative 00929 - PHQ-9 Billing: Yes Source: Developed by Drs. Kofi Arrington, Tracy Rowe, Al Kulkarni and colleagues, with an educational bobby from [employer]. Thrive Questionnaire Date Thrive assessed: 02/27/23 I am a: Patient What is your living situation today?: I have a steady place to live Within the past 12 months, did the food you bought not last and you didn't have the money to get more?: Never true Within the past 12 months, did you worry whether your food would run out before you got money to buy more?: Never true Do you have trouble paying for medicines?: No Do you have trouble getting transportation to medical appointments?: No Do you have trouble paying your heating and electricity bill?: No Do you have trouble taking care of your child, family member or friend?: No Do you have trouble with day-to-day activities such as bathing, preparing meals, shopping, managing finances, etc.?: No Are you currently unemployed and looking for a job?: No Are you interested in more education?: No Please select the resources that you would like help with: None AUDIT C Alcohol Use Questionnaire (AUDIT-C) 1. How often do you have a drink containing alcohol?: Never Total Score: 0 Score Reviewed/Action Taken: No DIVINA-7 AMB Questionnaire DIVINA-7 Date DIVINA - 7 assessed: 02/27/23 Feeling nervous, anxious, or on edge: 1 = Several days Not being able to stop or control worryin = Not at all Worrying too much about different things: 1 = Several days Trouble relaxin = Not at all Being so restless that it is hard to sit still: 0 = Not at all Becoming easily annoyed or irritable: 1 = Several days Feeling afraid as if something awful might happen: 0 = Not at all Total DIVINA-7 score (0-4 normal; 5-9 mild; 10-14 moderate; 15-21 severe): 3 Source: Developed by Drs. Kofi Arrington, Tracy Rowe, Al Kulkarni and colleagues, with an educational bobby from [employer]. DIVINA-7 Assessment Billing DIVINA-7 Assessment Tool: DIVINA-7 Assessment 18629 Review of Systems Const All systems reviewed & are unremarkable except as noted in HPI and below Eyes Reports no additional complaints, Denies change in vision and Denies other visual disturbances Card Denies chest pain at rest, Denies chest pain with activity, Denies edema, Denies irregular heart rhythm, Denies claudication, Denies dyspnea, Denies dyspnea on exertion, Denies orthopnea, Denies paroxysmal nocturnal dyspnea and Denies slow heart rate Resp Denies cough, Denies dyspnea and Denies dyspnea on exertion GI Denies abdominal pain, Denies change in bowel habits, Denies excessive flatus, Denies nausea and Denies vomiting Denies urinary incontinence, Denies urinary hesitancy and Denies urinary urgency Musc Denies abnormal gait, Denies atrophy, Denies deformity and Denies limited range of motion Skin/Breast Denies bleeding lesions, Denies changing lesions and Denies rash Neuro Denies abnormal gait and Denies lack of coordination Physical exam (Primary Care) Vital Signs: Last Vital Signs BP 142/80 H 02/27/23 08:52 BMI result Body Mass Index 35.0 Tobacco/Smoking Status: Tobacco use Status Tobacco use date assessed 02/27/23 02/27/23 08:58 Patient Tobacco Use Status Never used Tobacco 02/27/23 08:56 e-Cigarette/Vaping Use Never Used 02/27/23 08:58 PHQ-9: PHQ-9 Score PHQ-9: Total score 2 02/27/23 09:17 Depression Screening Interpretation: Negative Thrive Assessment: Date of Thrive Assessment Date Thrive assessed 02/27/23 02/27/23 08:58 Eyes General: appearance normal, both eyes and all related structures Eyelids: Yes eyelids normal Conjunctivae: conjunctivae normal Neck Neck: Yes normal visual inspection and Yes supple Resp Effort & Inspection: normal respiratory effort Auscultation: clear to auscultation bilaterally Cardio Jugular venous distension: no JVD Rate: regular rate Rhythm: regular rhythm Heart sounds: S1 normal heart sound present and S2 normal heart sound present Extrem General: Yes full ROM Assessment and Plan Assessment & Plan (1) Diabetes type 2, uncontrolled: Code(s): E11.65 - Type 2 diabetes mellitus with hyperglycemia Plan: Continue insulin. A1c goal is equal or less than 7%. Follow-up with endocrinology. (2) Post-surgical hypothyroidism: Code(s): E89.0 - Postprocedural hypothyroidism Plan: Continue levothyroxine. Monitor TSH. (3) Essential hypertension: Code(s): I10 - Essential (primary) hypertension Plan: Continue lisinopril. Blood pressure goal is equal or less than 130/80. (4) Dyslipidemia: Code(s): E78.5 - Hyperlipidemia, unspecified Plan: Continue statins. LDL goal is less than 70. (5) Atrial fibrillation: Code(s): I48.91 - Unspecified atrial fibrillation Plan: Continue metoprolol, amiodarone and Eliquis. Follow-up with Cardiology. Orders: Orders Vitamin B12 and Folate Today E53.8 - Deficiency of other specified B group vitamins Comprehensive [place]. Panel Fast Today I48.91 - Unspecified atrial fibrillation IRON PROFILE Today D64.9 - Anemia, unspecified Lipid Panel Today E78.5 - Hyperlipidemia, unspecified Vitamin D 25-OH Total Today E55.9 - Vitamin D deficiency, unspecified Microalbumin, Random (w Creat) Today E11.9 - Type 2 diabetes mellitus without complications Complete Blood Count Auto Diff Today D64.9 - Anemia, unspecified Referrals Gastroenterology Referral Z12.11 - Encounter for screening for malignant neoplasm of colon Medications: New diclofenac sodium 1% (Arthritis Pain (diclofenac)) apply to single elbow, wrist or hand; for hand includes palm/fingers/back of hand 2 grams topical QID PRN 100 grams 0RF pain 30 days Refilled metformin ER 500 mg PO BID 180 tabs 1RF 90 days E11.65 - Type 2 diabetes mellitus with hyperglycemia Coding Level of Care Code New Pt Level 4 (18400) Diagnoses Diabetes type 2, uncontrolled E11.65 Post-surgical hypothyroidism E89.0 Essential hypertension I10 Dyslipidemia E78.5 Atrial fibrillation I48.91 Additional Codes DIVINA-7 Assessment Billing - DIVINA-7 Assessment Tool: DIVINA-7 Assessment 21926 ([id number]) Time Spent (min) 23
[2023-02-27 10:02] VITALS: BP 138/80
== END 2023-02-27 09:22 | disposition home or self-care (01) ==
PROVIDERS: PCP Internal Medicine; Visit Provider Internal Medicine
DX: E11.65 Type 2 diabetes mellitus with hyperglycemia (principal); I48.91 Unspecified atrial fibrillation; I10 Essential (primary) hypertension; E89.0 Postprocedural hypothyroidism; E78.5 Hyperlipidemia, unspecified
CPT/HCPCS: 99204

== ENCOUNTER 2023-02-27 09:30 | Outpatient (REF) | payer OTHER, SELFPAY ==
[2023-02-27 10:04] LABS: MANUAL DIFF FLAG NO
[2023-02-27 10:34] LABS: Basophils Absolute Auto 0.1 X10*3/uL (0.0-0.2); Basophils Percent Auto 0.8 % (0-2); Eosinophils Absolute Auto 0.1 X10*3/uL (0.0-0.4); Eosinophils Percent Auto 0.6 % (0-4); Hematocrit 37.3 % (37.0-47.0); Hemoglobin 10.6 g/dl (12.0-16.0); Imm Gran Abs Auto 0.02 X10*3/uL (0.00-0.03); Imm Gran Pct Auto 0.3 % (0.0-0.4); Lymphocytes Absolute Auto 2.9 X10*3/uL (1.2-4.9); Lymphocytes Percent Auto 37.2 % (20-40); Mean Corpuscular HGB Conc 28.4 g/dl (31.0-35.0); Mean Corpuscular Hemoglobin 18.4 pg (27.0-33.0); Mean Platelet Volume 10.7 fL (9.4-12.3); Monocytes Absolute Auto 0.3 X10*3/uL (0.1-1.2); Monocytes Percent Auto 4.1 % (2-11); Neutrophils Absolute Auto 4.4 x10*3/uL (2.0-8.3); Platelet Count 390 X10*3/uL (160-400); Red Blood Count 5.77 X10*6/uL (4.20-5.50); Red Cell Distribution Width 16.7 % (11.0-16.0); White Blood Count 7.8 X10*3/uL (4.8-10.8)
[2023-02-27 10:37] LABS: Mean Corpuscular Volume 64.6 fL (80.0-98.0)
[2023-02-27 11:17] LABS: Alanine Aminotransferase 8 U/L (0-31); Albumin Level 4.1 g/dL (3.5-5.0); Alkaline Phosphatase 112 U/L (39-117); Anion Gap 14 (12-20); Aspartate Amino Transferase 19 U/L (5-31); Bilirubin Total 0.3 mg/dL (0.0-1.0); Blood Urea Nitrogen 9 mg/dL (9-16); Calcium 9.7 mg/dL (8.4-10.2); Carbon Dioxide 31 mmol/L (22-29); Chloride 103 mmol/L (96-108); Cholesterol 165 mg/dL (<200); Estimated Glomerular Filt Rate 57; Glucose Fasting 132 mg/dL (60-99); HDL Cholesterol 44 mg/dL (>40); Iron 55 mcg/dL (30-160); LDL Cholesterol Calculated 105 mg/dL (<100); Percent Iron Saturation 19 % (15-50); Potassium 3.8 mmol/L (3.3-5.1); Sodium 144 mmol/L (135-145); Total Iron Binding Capacity 289 mcg/dL (228-428); Total Protein 7.8 g/dL (6.5-8.0); Triglycerides 82 mg/dL (<150); Unsaturated Iron Binding 234 ug/dL
[2023-02-27 11:29] LABS: Vitamin D 25-OH Total 37.8 ng/mL (>30)
[2023-02-27 11:30] LABS: Free T4 (Free Thyroxine) 0.66 ng/dL (0.71-1.85)
[2023-02-27 11:33] LABS: Creatinine Urine 244.59 mg/dL; Microalbum/Creatinine Ratio Ur 4.4 ug/mg cr (<30)
[2023-02-27 11:43] LABS: Folate 9.3 ng/mL (> or = 4.0); Vitamin B12 422 pg/mL (200-900)
[2023-03-01 03:53] LABS: Thyroglobulin 0.6 ng/mL
== END 2023-02-27 09:31 | disposition home or self-care (01) ==
LOC: HO.LAB 09:30
PROVIDERS: Absent Provider Internal Medicine Endocrinology, Diabetes & Metabolism; PCP Internal Medicine; Visit Provider Internal Medicine
DX: E11.9 Type 2 diabetes mellitus without complications (principal); D64.9 Anemia, unspecified; I48.91 Unspecified atrial fibrillation; E78.5 Hyperlipidemia, unspecified; E55.9 Vitamin D deficiency, unspecified; E53.8 Deficiency of other specified B group vitamins; C73 Malignant neoplasm of thyroid gland
CPT/HCPCS: 36415; 80053; 80061; 82043; 82306; 82607; 82746; 83540; 84432; 84439; 84443; 85025

== ENCOUNTER → 2023-03-26 08:48 | Outpatient (BNV) | payer OTHER, SELFPAY | PROVIDERS: PCP Internal Medicine; Visit Provider Internal Medicine Medical Oncology | DX: D64.9 Anemia, unspecified (principal); D56.0 Alpha thalassemia | CPT/HCPCS: 99204; 99213 ==

== ENCOUNTER 2023-04-25 10:39 | Outpatient (AMB) | payer OTHER, SELFPAY ==
--- NOTE | 2023-04-25 11:17 | MHC.AMDMED ---
Intake Intake Visit Reasons: DM, CGM setup Halftone Operator Required: Yes Halftone Operator Language: Welsh Accompanied by: Self / Same As Patient Allergies empagliflozin [From JARDIANCE] Allergy (Intermediate, Verified 03/26/23 08:54) ITCHY/RASH JARDIANCE Allergy (Intermediate, Uncoded 03/26/23 08:54) pruritus HPI Comprehensive Diabetes Asmnt General Diabetes type type 2 Most Recent Diabetes Results: Microalb/Creat Ratio 4.4 ug/mg cr (<30) 02/27/23 Cholesterol 165 mg/dL (<200) 02/27/23 HDL Cholesterol 44 mg/dL (>40) 02/27/23 Triglycerides 82 mg/dL (<150) 02/27/23 Creatinine 0.88 mg/dL (0.5-1.4) 03/26/23 Blood Urea Nitrogen 7 mg/dL (9-16) L 03/26/23 Sodium 144 mmol/L (135-145) 03/26/23 Potassium 3.1 mmol/L (3.3-5.1) L 03/26/23 Chloride 102 mmol/L (96-108) 03/26/23 Carbon Dioxide 28 mmol/L (22-29) 03/26/23 Calcium 9.3 mg/dL (8.4-10.2) 03/26/23 AST 16 U/L (5-31) 03/26/23 ALT 7 U/L (0-31) 03/26/23 Total Protein 7.5 g/dL (6.5-8.0) 03/26/23 Albumin 3.8 g/dL (3.5-5.0) 03/26/23 [facility] Medical History Asthma Diabetes type 2, uncontrolled Dyslipidemia Essential hypertension Hyperparathyroidism Hypoglycemia unawareness associated with type 2 diabetes mellitus 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 Mother Arthritis Social History (Updated 03/26/23 @ 08:54 by Cabrera Watson) Household Members: None Housing: Apartment Alcohol intake: never Patient Tobacco Use Status: Never used Tobacco e-Cigarette/Vaping Use: Never Used Second Hand Smoke Exposure: No service: No Current occupational status: disabled Cognitive needs: No Hearing needs: No Vision needs: No Assessment & Plan Assessment & Plan (1) Hypoglycemia unawareness associated with type 2 diabetes mellitus: Code(s): E11.649 - Type 2 diabetes mellitus with hypoglycemia without coma Plan: Patient at visit to set up an insert dexcom G7 Instructed patient sensors water proof you can shower, or swim do not submerge sensor in water for over 30 minutes Is sensor falls off cannot put back in you need to replace sensor, customer service number given to patient for sensor replacement Sensor placed on the back of left arm Patient left visit with sensor in warmup Reviewed how to interpret trend arrows Reminded patient that to check finger sticks if symptoms do not match sensor reading. Discussed lag time between finger stick and sensor data.? Instructed patient she should always keep blood glucometer for backup testing if needed Reviewed delay of CGM from fingersticks Reminded pt that if symptoms do not match sensor still needs to check fingersticks. Patient Instructions: Instrucciones para el paciente: CGM proporciona informaci?n sobre el control de la glucosa en yosef a lo aide del d?a, incluidas la hiperglucemia y la hipoglucemia. Contin?e controlando la glucosa en yosef seg?n las instrucciones. Siga las pautas de nutrici?n proporcionadas. Informe cualquier molestia de inmediato al proveedor de atenci?n m?dica. Mantente izzy hidratado. Puede ba?arse, ducharse, nadar y hacer ejercicio mientras usa el sensor de glucosa. No sumerja el sensor de glucosa en agua fritz m?s de 30 minutos. Retire el sensor para lia resonancia magn?jennifer o lia tomograf?a computarizada. Evite la m?quina de shen X en los aeropuertos: retire el sensor o solicite la varita Coding Level of Care Code Est Pt Level 1 (04659) Diagnoses Hypoglycemia unawareness associated with type 2 diabetes mellitus E11.649
== END 2023-04-25 11:22 | disposition home or self-care (01) ==
PROVIDERS: PCP Internal Medicine; Visit Provider Registered Nurse Diabetes Educator
DX: E11.649 Type 2 diabetes mellitus with hypoglycemia without coma (principal)

== ENCOUNTER → 2023-04-25 10:39 | Outpatient (BNVA) | payer OTHER, SELFPAY | PROVIDERS: PCP Internal Medicine; Visit Provider Registered Nurse Diabetes Educator | DX: E11.649 Type 2 diabetes mellitus with hypoglycemia without coma (principal) | CPT/HCPCS: 99211 ==

== ENCOUNTER 2023-05-09 13:15 | Outpatient (AMB) | payer OTHER, SELFPAY ==
--- NOTE | 2023-05-09 13:56 | A.OFFVIS_ITS ---
Intake Intake Visit Reasons: DM Allergies empagliflozin [From JARDIANCE] Allergy (Intermediate, Verified 03/26/23 08:54) ITCHY/RASH JARDIANCE Allergy (Intermediate, Uncoded 03/26/23 08:54) pruritus HPI Comprehensive Diabetes Asmnt Most Recent Diabetes Results: Microalb/Creat Ratio 4.4 ug/mg cr (<30) 02/27/23 Cholesterol 165 mg/dL (<200) 02/27/23 HDL Cholesterol 44 mg/dL (>40) 02/27/23 Triglycerides 82 mg/dL (<150) 02/27/23 Creatinine 0.88 mg/dL (0.5-1.4) 03/26/23 Blood Urea Nitrogen 7 mg/dL (9-16) L 03/26/23 Sodium 144 mmol/L (135-145) 03/26/23 Potassium 3.1 mmol/L (3.3-5.1) L 03/26/23 Chloride 102 mmol/L (96-108) 03/26/23 Carbon Dioxide 28 mmol/L (22-29) 03/26/23 Calcium 9.3 mg/dL (8.4-10.2) 03/26/23 AST 16 U/L (5-31) 03/26/23 ALT 7 U/L (0-31) 03/26/23 Total Protein 7.5 g/dL (6.5-8.0) 03/26/23 Albumin 3.8 g/dL (3.5-5.0) 03/26/23 PFSH Medical History Asthma Diabetes type 2, uncontrolled Dyslipidemia Essential hypertension Hyperparathyroidism Hypoglycemia unawareness associated with type 2 diabetes 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 Mother Arthritis Social History (Updated 03/26/23 @ 08:54 by Cabrera Watson) Household Members: None Housing: Apartment Alcohol intake: never Patient Tobacco Use Status: Never used Tobacco e-Cigarette/Vaping Use: Never Used Second Hand Smoke Exposure: No service: No Current occupational status: disabled Cognitive needs: No Hearing needs: No Vision needs: No Assessment & Plan Assessment & Plan (1) Diabetes type 2, uncontrolled: Code(s): E11.65 - Type 2 diabetes mellitus with hyperglycemia Plan: Personal Continuous Glucose Monitor: Patients CGM information reviewed Reviewed patient's sensor data: Hypoglycemia: ? 1% Hyperglycemia:? 38% Time in Range:? 61% Average glucose for the last 2 weeks? 165 mg/dL patient here for follow-up after starting Dexcom G7, patient reports she does not wish to continue with CGM she finds the alerts annoying and feels it is too complicated to manage. reviewed current CGM data patient is experiencing overnight hypoglycemia, with postprandial hyperglycemia recommended to patient she decrease Tresiba 25 units to 20 units daily message sent to Dr. Naidu to increase Trulicity 3 mg weekly to 4.5 mg weekly patient reports she is not taking Humalog 6 units before meals reviewed with patient how to treat hypoglycemia with rule of 15s patient given how to treat hypoglycemia handout in Croatian patient instructed to contact clinical staff educator or Dr. Naidu if hypoglycemia persists Encourage patient to consider continuing with CGM..? Suggested to patient that we could change alerts to be less frequent. Patient continues to decline CGM Medications: Discontinued dulaglutide (Trulicity) Dose increased to 3 mg weekly. Discontinued Reason: Doctor's Order 3 mg (0.5 mL) subcut QWEEK 90 days 2 mL 4RF E11.65 - Type 2 diabetes mellitus with hyperglycemia Patient Instructions: Reducir Tresiba de 25 unidades a 20 unidades seguimiento con educador en diabetes en 5 meses Coding Level of Care Code Est Pt Level 1 (02392) Diagnoses Diabetes type 2, uncontrolled E11.65
== END 2023-05-09 14:00 | disposition home or self-care (01) ==
PROVIDERS: PCP Internal Medicine; Visit Provider Registered Nurse Diabetes Educator
DX: E11.65 Type 2 diabetes mellitus with hyperglycemia (principal)

== ENCOUNTER → 2023-05-09 13:15 | Outpatient (BNVA) | payer OTHER, SELFPAY | PROVIDERS: PCP Internal Medicine; Visit Provider Registered Nurse Diabetes Educator | DX: E11.65 Type 2 diabetes mellitus with hyperglycemia (principal) | CPT/HCPCS: 99211 ==

== ENCOUNTER 2023-06-11 13:09 | Outpatient (REF) | payer OTHER, SELFPAY | END 2023-06-11 13:10 | disposition home or self-care (01) | LOC: HO.MDS 13:09 | PROVIDERS: Visit Provider Internal Medicine Medical Oncology | DX: D50.8 Other iron deficiency anemias (principal) | CPT/HCPCS: 96365; J1439 ==

== ENCOUNTER → 2023-06-13 09:26 | Outpatient (BNVA) | payer OTHER, SELFPAY | PROVIDERS: PCP Internal Medicine; Visit Provider Nurse Practitioner Family ==

== ENCOUNTER 2023-07-09 09:08 | Outpatient (AMB) | payer OTHER, SELFPAY ==
--- NOTE | 2023-07-09 09:10 | MHC.PC.OV ---
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 Accompanied by: Self / Same As Patient Allergies empagliflozin [From JARDIANCE] Allergy (Intermediate, Verified 07/09/23 09:28) ITCHY/RASH JARDIANCE Allergy (Intermediate, Uncoded 07/09/23 09:28) pruritus Medication List - Last Reconciled 07/09/23 by Jo Montiel MD albuterol sulfate 2.5 mg inhalation Q6H albuterol sulfate 90 mcg/actuation 2 puffs inhalation Q6H PRN amiodarone 200 mg PO DAILY apixaban (Eliquis) 5 mg PO BID bisacodyl (Dulcolax (bisacodyl)) 20 mg (4 x 5 mg) PO ONCE 1 day blood pressure test kit-large As directed blood sugar diagnostic (OneTouch Ultra Test strips) As directed test 4 times a day blood-glucose meter (FreeStyle Lite Meter kit) TEST ONCE A DAY blood-glucose meter (OneTouch Ultra2 Meter) As directed test 4 times a day cholecalciferol (vitamin D3) (D3-2000) 50 mcg PO DAILY dulaglutide (Trulicity) 4.5 mg (0.5 mL) subcut QWEEK ferrous sulfate 325 mg PO DAILY 90 days folic acid 1 mg PO DAILY furosemide 20 mg PO DAILY gabapentin 300 mg PO BID insulin degludec 16 units (0.16 mL) subcut QAM 90 days insulin lispro (Humalog KwikPen (U-100) Insulin) 6 units (0.06 mL) subcut QAM lancets As directed lancets (OneTouch Delica Plus Lancet) USE TO TEST BLOOD SUGAR FOUR TIMES DAILY lancets (FreeStyle Lancets) As directed test once a day levothyroxine 125 mcg PO DAILY lisinopril 10 mg PO DAILY 90 days metformin ER 500 mg PO BID 90 days metoprolol succinate ER 100 mg PO DAILY nebulizers As directed pen needle, diabetic (Comfort EZ Pen [place]) 1 ea subcut .4x daily 30 days polyethylene glycol 3350 (Miralax) 238 grams PO ONCE rosuvastatin 40 mg PO DAILY 90 days Ventolin HFA 90 mcg/actuation (albuterol sulfate) 2 puffs inhalation Q6H PRN 30 days NS Tobacco use date assessed: 07/09/23 Fall risk assessment: No Falls in past year Last assessed Fall Risk: 07/09/23 Dental Screening Dental Screen Date: 07/09/23 Did you have a dental visit in the last 12 months?: Yes Did you have a dental problem in the last 6 months where you did not have access to dental care?: No Was dental information given to patient?: Patient has dentist HPI HPI Comments History of Present Illness Details This is a 68-year-old female with atrial fibrillation and diabetes mellitus type 2 not control on long-term current use of insulin that comes for her physical exam. On chronic anticoagulation for atrial fibrillation and this is follow by cardiology. A1c not on goal and I will increase long-acting insulin. Mammogram done January 2023 was normal. Colonoscopy done 2017 which had a poor prep and needed to be done 3 years later. Was seen by Gastroenterology which is asking for cardiology clearance. She sees [facility] once a year for her atrial fibrillation. No chest pain or shortness of breath. Compliant with medications. [facility] Medical History (Updated 07/09/23 @ 09:50 by Jo Montiel MD) Asthma Pericardial effusion Pneumonitis Pleural effusion Hypoglycemia unawareness associated with type 2 diabetes mellitus Post-surgical hypothyroidism skilled nursing (current) use of insulin Postsurgical hypothyroidism Thyroid cancer Dyslipidemia Essential hypertension Hyperparathyroidism Vitamin D deficiency Obesity (BMI 30-39.9) Diabetes type 2, uncontrolled Surgical History Hx of colonoscopy Hx of total thyroidectomy Hx of hysterectomy Family History Father No problems noted. Mother Arthritis Social History Household Members: None Housing: Apartment Alcohol intake: never Patient Tobacco Use Status: Never used Tobacco e-Cigarette/Vaping Use: Never Used Second Hand Smoke Exposure: No service: No Current occupational status: disabled Cognitive needs: No Hearing needs: No Vision needs: No Questionnaire PHQ-9 Over the last 2 weeks, how often have you been bothered by any of the following problems? 1. Little interest or pleasure in doing things: not at all 2. Feeling down, depressed, or hopeless: several days 3. Trouble falling or staying asleep, or sleeping too much: several days 4. Feeling tired or having little energy: not at all 5. Poor appetite or overeating: not at all 6. Feeling bad about yourself - or that you are a failure or have let yourself or your family down: not at all 7. Trouble concentrating on things, such as reading the newspaper or watching television: not at all 8. Moving or speaking so slowly that other people could have noticed. Or the opposite - being so fidgety or restless that you have been moving around a lot more than usual: not at all 9. Thoughts that you would be better off or of hurting yourself in some way: not at all Total score: 2 Depression Screening Interpretation: Negative Depression Screening Done: Yes 16362 - PHQ-9 Billing: Yes Source: Developed by Drs. Kofi Arrington, Tracy Rowe, Al Kulkarni and colleagues, with an educational bobby from [employer]. Thrive Questionnaire Date Thrive assessed: 07/09/23 I am a: Patient What is your living situation today?: I have a steady place to live Within the past 12 months, did the food you bought not last and you didn't have the money to get more?: Never true Within the past 12 months, did you worry whether your food would run out before you got money to buy more?: Never true Do you have trouble paying for medicines?: No Do you have trouble getting transportation to medical appointments?: No Do you have trouble paying your heating and electricity bill?: No Do you have trouble taking care of your child, family member or friend?: No Do you have trouble with day-to-day activities such as bathing, preparing meals, shopping, managing finances, etc.?: No Are you currently unemployed and looking for a job?: No Are you interested in more education?: No Please select the resources that you would like help with: None Currently or been in a relationship where the following occur: no concerns reported AUDIT C Alcohol Use Questionnaire (AUDIT-C) 1. How often do you have a drink containing alcohol?: Never Total Score: 0 Score Reviewed/Action Taken: No DIVINA-7 AMB Questionnaire DIVINA-7 Date DIVINA - 7 assessed: 07/09/23 Feeling nervous, anxious, or on edge: 1 = Several days Not being able to stop or control worryin = Not at all Worrying too much about different things: 1 = Several days Trouble relaxin = Not at all Being so restless that it is hard to sit still: 0 = Not at all Becoming easily annoyed or irritable: 1 = Several days Feeling afraid as if something awful might happen: 0 = Not at all Total DIVINA-7 score (0-4 normal; 5-9 mild; 10-14 moderate; 15-21 severe): 3 Source: Developed by Drs. Kofi Arrington, Tracy Rowe, Al Kulkarni and colleagues, with an educational bobby from [employer]. DIVINA-7 Assessment Billing DIVINA-7 Assessment Tool: DIVINA-7 Assessment 88234 Review of Systems Const All systems reviewed & are unremarkable except as noted in HPI and below Eyes Reports no additional complaints, Denies change in vision and Denies other visual disturbances Card Denies chest pain at rest, Denies chest pain with activity, Denies edema, Denies irregular heart rhythm, Denies claudication, Denies dyspnea, Denies dyspnea on exertion, Denies orthopnea, Denies paroxysmal nocturnal dyspnea and Denies slow heart rate Resp Denies cough, Denies dyspnea and Denies dyspnea on exertion GI Denies abdominal pain, Denies change in bowel habits, Denies excessive flatus, Denies nausea and Denies vomiting Denies urinary incontinence, Denies urinary hesitancy and Denies urinary urgency Musc Denies abnormal gait, Denies atrophy, Denies deformity and Denies limited range of motion Skin/Breast Denies bleeding lesions, Denies changing lesions and Denies rash Neuro Denies abnormal gait, Denies behavioral changes, Denies confusion and Denies lack of coordination Psych Denies behavioral changes and Denies confusion Physical exam (Primary Care) Vital Signs: Last Vital Signs BP 136/82 07/09/23 09:11 BMI result Body Mass Index 33.3 Tobacco/Smoking Status: Tobacco use Status Tobacco use date assessed 07/09/23 07/09/23 09:14 Patient Tobacco Use Status Never used Tobacco 07/09/23 09:14 e-Cigarette/Vaping Use Never Used 07/09/23 09:14 PHQ-9: PHQ-9 Score PHQ-9: Total score 2 07/09/23 09:14 Depression Screening Interpretation: Negative Thrive Assessment: Date of Thrive Assessment Date Thrive assessed 07/09/23 07/09/23 09:14 Currently or been in a relationship where the following occur: no concerns reported Const General: No confusion Orientation/consciousness: patient oriented x3 and No confusion HENMT Head: Yes normal to inspection, Yes normocephalic and Yes atraumatic Ears: external ears normal Eyes General: appearance normal, both eyes and all related structures Eyelids: Yes eyelids normal Conjunctivae: conjunctivae normal Neck Neck: Yes normal visual inspection and Yes supple Resp Effort & Inspection: normal respiratory effort Auscultation: clear to auscultation bilaterally Cardio Jugular venous distension: no JVD Rate: regular rate Rhythm: regular rhythm Heart sounds: S1 normal heart sound present and S2 normal heart sound present GI Inspection: Yes normal to inspection Palpation (GI): Soft to palpation and nontender Auscultation: normal bowel sounds Skin General skin exam: no rashes or lesions noted Neuro General: patient oriented x3, no focal motor deficits and No confusion Extrem General: Yes full ROM Psych Appearance: grossly normal Office Procedures Flu Questionnaire Does the patient have a severe egg allergy?: No Results AMB Hemoglobin A1c AMB Hemoglobin A1c 8.4 % Last Edit by LATASHA Craig on 07/09/23 09:23 Immunizations flu vacc [id number] 6mos up(PF) 60 mcg(15 mcgx4)/0.5 mL IM syringe Performing Provider: Jo Montiel MD [facility] Documented (not given) by: LATASHA Craig on 07/09/23 09:20 Reason Not Given: Patient Refused Results Reviewed Results Reviewed: Laboratory Last Values Hgb A1c (Clinic) 8.4 % (4.0-6.0) H 07/09/23 09:20 Assessment and Plan Assessment & Plan (1) Physical exam: Code(s): Z00.00 - Encounter for general adult medical examination without abnormal findings Plan: Repeat in a year. (2) Atrial fibrillation: Code(s): I48.91 - Unspecified atrial fibrillation Plan: Continue chronic anticoagulation. Follow-up with Cardiology. (3) Diabetes type 2, uncontrolled: Code(s): E11.65 - Type 2 diabetes mellitus with hyperglycemia Qualifiers: Glycemic state: with hyperglycemia Qualified Code(s): E11.65 - Type 2 diabetes mellitus with hyperglycemia Plan: Continue Trulicity. Increase long-acting insulin. Follow-up with endocrinology. A1c goal is equal or less than 7%. Orders: Orders Influenza [id number] Immunization Today Z23 - Encounter for immunization Lipid Panel Today E78.5 - Hyperlipidemia, unspecified Microalbumin, Random (w Creat) Today E11.9 - Type 2 diabetes mellitus without complications Comprehensive [place]. Panel Fast Today E11.65 - Type 2 diabetes mellitus with hyperglycemia Thyroid Stimulating Hormone Today E89.0 - Postprocedural hypothyroidism Complete Blood Count Auto Diff Today D64.9 - Anemia, unspecified IRON PROFILE Today D64.9 - Anemia, unspecified Vitamin B12 and Folate Today E53.8 - Deficiency of other specified B group vitamins Vitamin D 25-OH Total Today E55.9 - Vitamin D deficiency, unspecified AMB Hemoglobin A1c Today E11.65 - Type 2 diabetes mellitus with hyperglycemia Referrals Cardiology Referral Z01.810 - Encounter for preprocedural cardiovascular examination Medications: Changed From insulin degludec 16 units (0.16 mL) subcut QAM 90 days 14.4 mL 6RF E11.65 - Type 2 diabetes mellitus with hyperglycemia To insulin degludec 20 units (0.2 mL) subcut QAM 90 days 18 mL 6RF E11.65 - Type 2 diabetes mellitus with hyperglycemia Coding Level of Care Code Est Pt Prev Care >65y(53849) Diagnoses Physical exam Z00.00 Atrial fibrillation I48.91 Uncontrolled type 2 diabetes mellitus with hyperglycemia E11.65 Glycemic state: with hyperglycemia Additional Codes DIVINA-7 Assessment Billing - DIVINA-7 Assessment Tool: DIVINA-7 Assessment 65682 ([id number]) Time Spent (min) 35
[2023-07-09 09:11] VITALS: BP 136/82; BMI 33.3
== END 2023-07-09 09:40 | disposition home or self-care (01) ==
PROVIDERS: PCP Internal Medicine; Visit Provider Internal Medicine
DX: Z00.00 Encounter for general adult medical examination without abnormal findings (principal); I48.91 Unspecified atrial fibrillation; E11.65 Type 2 diabetes mellitus with hyperglycemia
CPT/HCPCS: 83036; 99397

== ENCOUNTER 2023-11-07 09:37 | Outpatient (AMB) | payer OTHER, SELFPAY ==
--- NOTE | 2023-11-07 09:42 | MHC.PC.OV ---
Vital Signs 11/07/23 09:43 Height 5 ft 1 in Weight 179 lb BMI 33.8 BP 130/70 Blood Pressure Location Lt brachial Position Sitting Intake Visit Reasons: dm Intake Note: Patient here for a follow up DM, letter request Pharmacy Analyst Required: No Accompanied by: Self / Same As Patient Allergies empagliflozin [From JARDIANCE] Allergy (Intermediate, Verified 11/07/23 10:15) ITCHY/RASH JARDIANCE Allergy (Intermediate, Uncoded 11/07/23 10:15) pruritus Medication List - Last Reconciled 11/07/23 by Jo Montiel MD amiodarone 200 mg PO DAILY apixaban (Eliquis) 5 mg PO BID bisacodyl (Dulcolax (bisacodyl)) 20 mg (4 x 5 mg) PO ONCE 1 day blood pressure test kit-large As directed blood sugar diagnostic (HouseTripTouch Ultra Test strips) USE TO TEST BLOOD SUGAR FOUR TIMES PER DAY blood-glucose meter (FreeStyle Lite Meter kit) TEST ONCE A DAY blood-glucose meter (HouseTripTouch Ultra2 Meter) As directed test 4 times a day cholecalciferol (vitamin D3) (Vitamin D3) 50 mcg PO DAILY diclofenac sodium 1% (Arthritis Pain (diclofenac)) 2 grams topical QID PRN 30 days dulaglutide (Trulicity) 4.5 mg (0.5 mL) subcut QWEEK ferrous sulfate 325 mg PO DAILY 90 days folic acid 1 mg PO DAILY furosemide 20 mg PO DAILY gabapentin 300 mg PO BID insulin degludec 20 units (0.2 mL) subcut QAM 90 days lancets As directed lancets (HouseTripTouch Delica Plus Lancet) USE TO TEST BLOOD SUGAR FOUR TIMES DAILY lancets (FreeStyle Lancets) As directed test once a day levothyroxine 125 mcg PO DAILY lisinopril 10 mg PO DAILY 90 days metformin ER 500 mg PO BID 90 days metoprolol succinate ER 100 mg PO DAILY mirtazapine 7.5 mg PO BEDTIME nebulizers As directed pen needle, diabetic (Comfort EZ Pen [place]) 1 ea subcut .4x daily 30 days polyethylene glycol 3350 (Miralax) 238 grams PO ONCE rosuvastatin 40 mg PO DAILY 90 days Ventolin HFA 90 mcg/actuation (albuterol sulfate) 2 puffs inhalation Q6H PRN 30 days NS Tobacco use date assessed: 07/09/23 Fall risk assessment: No Falls in past year Last assessed Fall Risk: 11/07/23 Dental Screening Dental Screen Date: 07/09/23 HPI HPI Comments History of Present Illness Details This is a 68-year-old female with atrial fibrillation, hypertension, dyslipidemia, microcytic anemia, diabetes mellitus type 2 on long-term current use of insulin and history of thyroid cancer treated with thyroidectomy as well as hyperparathyroidism that comes today for follow-up on her conditions. On chronic anticoagulation for her atrial fibrillation which is follow by cardiology. Blood pressure stable. Lipid panel was order and her LDL goal should be less than 70. On ferrous sulfate for her anemia that will be monitor and she denies any active bleeding. A1c elevated but she admits that she had not had insulin for the last 2-3 weeks. TSH will be order. Will repeat parathyroid hormone intact with other labs. Denies any chest pain or shortness of breath. Complains of knee pain due to osteoarthritis and said that acetaminophen does not relieved the pain. I am hesitant to give NSAIDs due to her medications and risk of kidney failure. ON LICENSE OF [facility] Medical History (Updated 11/07/23 @ 12:17 by Jo Montiel MD) Asthma Pericardial effusion Pneumonitis Pleural effusion Hypoglycemia unawareness associated with type 2 diabetes mellitus Post-surgical hypothyroidism half-way (current) use of insulin Postsurgical hypothyroidism Thyroid cancer Dyslipidemia Essential hypertension Hyperparathyroidism Vitamin D deficiency Obesity (BMI 30-39.9) Diabetes type 2, uncontrolled Surgical History Hx of colonoscopy Hx of total thyroidectomy Hx of hysterectomy Family History Father No problems noted. Mother Arthritis Social History Household Members: None Housing: Apartment Alcohol intake: never Patient Tobacco Use Status: Never used Tobacco e-Cigarette/Vaping Use: Never Used Second Hand Smoke Exposure: No service: No Current occupational status: disabled Cognitive needs: No Hearing needs: No Vision needs: No Questionnaire Thrive Questionnaire Date Thrive assessed: 07/09/23 DIVINA-7 AMB Questionnaire DIVINA-7 Date DIVINA - 7 assessed: 07/09/23 Source: Developed by Tracy DiasW. Jae, Al Kulkarni and colleagues, with an educational bobby from [employer]. Review of Systems Const All systems reviewed & are unremarkable except as noted in HPI and below Eyes Reports no additional complaints, Denies change in vision and Denies other visual disturbances Card Denies chest pain at rest, Denies chest pain with activity, Denies edema, Denies irregular heart rhythm, Denies claudication, Denies dyspnea, Denies dyspnea on exertion, Denies orthopnea, Denies paroxysmal nocturnal dyspnea and Denies slow heart rate Resp Denies cough, Denies dyspnea and Denies dyspnea on exertion Physical exam (Primary Care) Vital Signs: Last Vital Signs BP 130/70 11/07/23 09:43 BMI result Body Mass Index 33.8 Tobacco/Smoking Status: Tobacco use Status Tobacco use date assessed 07/09/23 11/07/23 09:46 Patient Tobacco Use Status Never used Tobacco 11/07/23 09:46 e-Cigarette/Vaping Use Never Used 11/07/23 09:46 Thrive Assessment: Date of Thrive Assessment Date Thrive assessed 07/09/23 11/07/23 09:46 Resp Effort & Inspection: normal respiratory effort Auscultation: clear to auscultation bilaterally Cardio Jugular venous distension: no JVD Rate: regular rate Rhythm: regular rhythm Heart sounds: S1 normal heart sound present and S2 normal heart sound present Extrem General: Yes full ROM Results AMB Hemoglobin A1c AMB Hemoglobin A1c 9.1 % Last Edit by LATASHA Craig on 11/07/23 09:54 Results Reviewed Results Reviewed: Laboratory Last Values Hgb A1c (Clinic) 9.1 % (4.0-6.0) H 11/07/23 09:41 Assessment and Plan Assessment & Plan (1) Atrial fibrillation: Code(s): I48.91 - Unspecified atrial fibrillation Qualifiers: Atrial fibrillation type: paroxysmal Qualified Code(s): I48.0 - Paroxysmal atrial fibrillation Plan: Continue amiodarone and Eliquis. Follow-up with Cardiology. The goal is heart rate control. (2) Microcytic anemia: Code(s): D50.9 - Iron deficiency anemia, unspecified Plan: Continue ferrous sulfate. (3) Diabetes mellitus, with long-term current use of insulin: Code(s): E11.9 - Type 2 diabetes mellitus without complications; Z79.4 - half-way (current) use of insulin Plan: Continue insulin. A1c goal is equal or less than 7%. (4) Essential hypertension: Code(s): I10 - Essential (primary) hypertension Plan: Continue lisinopril. Blood pressure goal is equal or less than 130/80. (5) Dyslipidemia: Code(s): E78.5 - Hyperlipidemia, unspecified Plan: Continue statins. Repeat lipid panel. LDL goal is less than 70. (6) Thyroid cancer: Code(s): C73 - Malignant neoplasm of thyroid gland Plan: Continue levothyroxine. Monitor TSH. (7) Hyperparathyroidism: Code(s): E21.3 - Hyperparathyroidism, unspecified Plan: Repeat PTH intact with other labs. Orders: Orders Microalbumin, Random (w Creat) Today E11.9 - Type 2 diabetes mellitus without complications Vitamin D 25-OH Total Today E55.9 - Vitamin D deficiency, unspecified IRON PROFILE Today D64.9 - Anemia, unspecified Thyroid Stimulating Hormone Today C73 - Malignant neoplasm of thyroid gland Calcium, Ionized Today E21.3 - Hyperparathyroidism, unspecified AMB Hemoglobin A1c Today E11.65 - Type 2 diabetes mellitus with hyperglycemia Lipid Panel Today E78.5 - Hyperlipidemia, unspecified Complete Blood Count Auto Diff Today D64.9 - Anemia, unspecified Comprehensive [place]. Panel Fast Today I48.91 - Unspecified atrial fibrillation Parathyroid Hormone Intact Today E21.3 - Hyperparathyroidism, unspecified Calcium, 24 Hr Ur Today E21.3 - Hyperparathyroidism, unspecified Coding Level of Care Code Est Pt Level 4 (84546) Diagnoses Paroxysmal atrial fibrillation I48.0 Atrial fibrillation type: paroxysmal Microcytic anemia D50.9 Diabetes mellitus, with long-term current use of insulin E11.9; Z79.4 Essential hypertension I10 Dyslipidemia E78.5 Thyroid cancer C73 Hyperparathyroidism E21.3 Time Spent (min) 25
[2023-11-07 09:43] VITALS: BP 130/70; BMI 33.8
== END 2023-11-07 10:31 | disposition home or self-care (01) ==
PROVIDERS: PCP Internal Medicine; Visit Provider Internal Medicine
DX: I48.0 Paroxysmal atrial fibrillation (principal); E11.69 Type 2 diabetes mellitus with other specified complication; Z79.4 Long term (current) use of insulin; C73 Malignant neoplasm of thyroid gland; E21.3 Hyperparathyroidism, unspecified; E11.65 Type 2 diabetes mellitus with hyperglycemia; D50.9 Iron deficiency anemia, unspecified; I10 Essential (primary) hypertension; E78.5 Hyperlipidemia, unspecified
CPT/HCPCS: 83036; 99214

== ENCOUNTER 2023-11-07 10:38 | Outpatient (REF) | payer OTHER, SELFPAY ==
[2023-11-07 10:57] LABS: MANUAL DIFF FLAG NO
[2023-11-07 11:23] LABS: Basophils Absolute Auto 0.1 X10*3/uL (0.0-0.2); Eosinophils Percent Auto 0.5 % (0-4); Hematocrit 36.8 % (37.0-47.0); Hemoglobin 10.9 g/dl (12.0-16.0); Imm Gran Abs Auto 0.02 X10*3/uL (0.00-0.03); Imm Gran Pct Auto 0.3 % (0.0-0.4); Lymphocytes Absolute Auto 2.1 X10*3/uL (1.2-4.9); Lymphocytes Percent Auto 27.2 % (20-40); Mean Corpuscular HGB Conc 29.6 g/dl (31.0-35.0); Mean Corpuscular Hemoglobin 19.5 pg (27.0-33.0); Mean Corpuscular Volume 65.7 fL (80.0-98.0); Monocytes Absolute Auto 0.3 X10*3/uL (0.1-1.2); Monocytes Percent Auto 3.6 % (2-11); Neutrophils Absolute Auto 5.3 x10*3/uL (2.0-8.3); Neutrophils Percent Auto 67.4 % (45-73); Platelet Count 307 X10*3/uL (160-400); Red Cell Distribution Width 16.4 % (11.0-16.0); White Blood Count 7.9 X10*3/uL (4.8-10.8)
[2023-11-07 12:00] LABS: Parathyroid Hormone Intact 72.4 pg/mL (8.7-77.1)
[2023-11-07 12:02] LABS: Alanine Aminotransferase 8 U/L (0-31); Albumin Level 3.9 g/dL (3.5-5.0); Alkaline Phosphatase 98 U/L (39-117); Anion Gap 15 (12-20); Aspartate Amino Transferase 18 U/L (5-31); Bilirubin Total 0.3 mg/dL (0.0-1.0); Blood Urea Nitrogen 9 mg/dL (9-16); Calcium 9.8 mg/dL (8.4-10.2); Carbon Dioxide 28 mmol/L (22-29); Chloride 103 mmol/L (96-108); Cholesterol 246 mg/dL (<200); Estimated Glomerular Filt Rate > 60; Glucose Fasting 210 mg/dL (60-99); HDL Cholesterol 43 mg/dL (>40); Iron 64 mcg/dL (30-160); LDL Cholesterol Calculated 172 mg/dL (<100); Percent Iron Saturation 25 % (15-50); Potassium 3.8 mmol/L (3.3-5.1); Sodium 142 mmol/L (135-145); Total Iron Binding Capacity 254 mcg/dL (228-428); Total Protein 7.5 g/dL (6.5-8.0); Triglycerides 159 mg/dL (<150); Unsaturated Iron Binding 190 ug/dL
[2023-11-07 12:10] LABS: Thyroid Stimulating Hormone 30.29 uIU/mL (0.32-4.0); Vitamin D 25-OH Total 31.1 ng/mL (>30)
[2023-11-07 12:20] LABS: Folate 7.8 ng/mL (> or = 4.0); Vitamin B12 390 pg/mL (200-900)
[2023-11-07 13:05] LABS: Creatinine Urine 248.12 mg/dL; Microalbum/Creatinine Ratio Ur 4.8 ug/mg cr (<30)
[2023-11-09 20:34] LABS: Calcium, Ionized 5.1 mg/dL (4.7-5.5)
== END 2023-11-07 10:39 | disposition home or self-care (01) ==
LOC: HO.LAB 10:38
PROVIDERS: PCP Internal Medicine; Visit Provider Internal Medicine Endocrinology, Diabetes & Metabolism
DX: E78.5 Hyperlipidemia, unspecified (principal); E11.65 Type 2 diabetes mellitus with hyperglycemia; E89.0 Postprocedural hypothyroidism; D64.9 Anemia, unspecified; E53.8 Deficiency of other specified B group vitamins; E55.9 Vitamin D deficiency, unspecified; E21.3 Hyperparathyroidism, unspecified; E11.9 Type 2 diabetes mellitus without complications
CPT/HCPCS: 36415; 80053; 80061; 82043; 82306; 82330; 82570; 82607; 82746; 83540; 83970; 84443; 85025

== ENCOUNTER 2023-11-12 09:35 | Outpatient (AMB) | payer OTHER, SELFPAY ==
--- NOTE | 2023-11-12 09:46 | A.OFFVIS_ITS ---
Vital Signs 11/12/23 09:47 Height 5 ft 1 in Weight 180 lb 12.465 oz BMI 34.2 BP 170/62 H Blood Pressure Location Lt brachial Position Sitting Pulse 61 Pulse Source Pulse Oximeter Intake Visit Reasons: f/u Type 2 DM and thyroid Cancer-lvm Intake Note: Patient present today to follow up on Type 2 Diabetes Mellitus and Thyroid Cancer. Last Diabetic Eye exam: 04.18.2023 Renetta Last Podiatry Visit: Doesn't have one. Random Glucose: 273 mg/dl HgA1C: 9.1% 11/07/23 Drug Abuse Social Worker Required: Yes Drug Abuse Social Worker Language: Coordinate Measuring Machine Operator Name: Malgorzata Information Interpreted: non-clinical & clinical Accompanied by: Self / Same As Patient Allergies empagliflozin [From JARDIANCE] Allergy (Intermediate, Verified 11/12/23 09:55) ITCHY/RASH JARDIANCE Allergy (Intermediate, Uncoded 11/12/23 09:55) pruritus Medication List - Last Reconciled 11/12/23 by Kofi Naidu MD amiodarone 200 mg PO DAILY apixaban (Eliquis) 5 mg PO BID bisacodyl (Dulcolax (bisacodyl)) 20 mg (4 x 5 mg) PO ONCE 1 day blood pressure test kit-large As directed blood sugar diagnostic (IPXTouch Ultra Test strips) USE TO TEST BLOOD SUGAR FOUR TIMES PER DAY blood-glucose meter (FreeStyle Lite Meter kit) TEST ONCE A DAY blood-glucose meter (OneTouch Ultra2 Meter) As directed test 4 times a day cholecalciferol (vitamin D3) (Vitamin D3) 50 mcg PO DAILY diclofenac sodium 1% (Arthritis Pain (diclofenac)) 2 grams topical QID PRN 30 days dulaglutide (Trulicity) 4.5 mg (0.5 mL) subcut QWEEK ferrous sulfate 325 mg PO DAILY 90 days folic acid 1 mg PO DAILY furosemide 20 mg PO DAILY gabapentin 300 mg PO BID insulin degludec 20 units (0.2 mL) subcut QAM 90 days lancets As directed lancets (OneTouch Delica Plus Lancet) USE TO TEST BLOOD SUGAR FOUR TIMES DAILY lancets (FreeStyle Lancets) As directed test once a day levothyroxine 137 mcg PO DAILY 90 days lisinopril 10 mg PO DAILY 90 days metformin ER 500 mg PO BID 90 days metoprolol succinate ER 100 mg PO DAILY mirtazapine 7.5 mg PO BEDTIME nebulizers As directed pen needle, diabetic (Comfort EZ Pen [place]) 1 ea subcut .4x daily 30 days polyethylene glycol 3350 (Miralax) 238 grams PO ONCE rosuvastatin 40 mg PO DAILY 90 days Ventolin HFA 90 mcg/actuation (albuterol sulfate) 2 puffs inhalation Q6H PRN 30 days NS HPI Comments Details: 68 yo female today for follow-up visit,for PTC and for diabetes management She had a whole body scan on 09/29/2020, 48 hours radioactive iodine uptake in the neck was 0.1%. There was a faint focus of radiotracer uptake in the left hypo pharyngeal wall. There was no corresponding abnormality in CT images. Her TSH was 30.16 this was a withdrawal scan. The TG level was 0.6 ng/mL. Her meter download from 10/30/2023 to 11/12/2023 11showed she is checking her point of cares once a day. An average blood sugar 154 mg per dL. The range is 94-286mg per dL. She is 88% in target range. 14% above target. She does not have any episode of hypoglycemia. Her fasting blood sugars are not all the time at goal. Son blood sugars fasting as are not really fasting are after coffee. Rare hypoglycemia Last optho appt 08/2023 She has been on Levothyroxine 137 ug QD . Been on this dose since 11/07/2023 Her last thyroglobulin level was detectable 0.1 ng per dL on a nonsuppressed TSH. Prior to that her TG was undetectable. 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 She had ablation with GALAVIZ 104.7 mCi od I 131 on 10/12/17. She had WBS post ablation scan on 09/21/17 , with TSH 38 MIU/ml, showed no metastasis , only uptake in the neck. She had total thyroidectomy on 05/02/[address] Whalen. Histology report : tumor size 3.2 x 3.0 x 2.9 cm, papillary thyroid cancer classic variant. Positive lymphovascular extension, positive perineural extension, positive extrathyroidal extension to soft tissue , but not to skeletal muscle, margins free of tumor, LN examined 3/4 positive for tumor. Left upper parathyroid gland was hyperplastic and was removed. Stage is IV a ( T3, N1a, Mx) recent thyroid ultrasound showed no abnormal lymph nodes She reports having occasional palpitations, Denies cold or heat intolerance, she gained 2 lb since last visit, positive constipation, no insomnia, fatigue, dry skin, denies dysphagia, no dyspnea, dysphonia, denies tremors, no irritability, anxiety. She denies nocturia, denies polyuria, polydipsia, numbness, tingling, blurred vision. She has diabetes type 2 diagnosed 20 years ago. . She is currently on Tresiba 16 units in the morning only Humalog 6 units in AM not taking , trulicity 3 mg weekly not taking , Metformin 1 ER 500 mg bid. Has occasional hypoglycemia daily -No She tried Jardiance and Farxiga but had yeast infection. She has not known retinopathy, nephropathy, neuropathy, CVA, CAD, PVD. Last ophthalmology evaluation a while ago . Needs to make appt : no retinopathy. .Needs to see optho 02/12/18 DEXA scan normal range BMD and T-score in all sites. Laboratory Tests 09/20/20 09/20/20 11/04/20 14:02 14:02 12:45 TSH 3.62 Free T4 0.51 L Thyroglobulin 0.6 H Thyroglobulin Antibody <1 Laboratory Tests 09/07/20 12:52 TSH 12.85 H Free T4 0.48 L Laboratory Tests 12/11/19 12/11/19 03/12/20 09:30 09:59 11:37 Hgb Hct Sodium Potassium Bicarbonate 26 Creatinine Estimated GFR Hgb A1c Fingerstick 7.6 9.0 Fructosamine Calcium AST ALT Albumin Triglycerides Cholesterol LDL Cholesterol Direct LDL Cholesterol, Calc HDL Cholesterol Vitamin B12 25-OH Vitamin D Total 1,25 Dihydroxy Vit D TSH Free T4 Thyroglobulin TSH 3rd Generation 0.22 L PTH Intact Calcium (PTH Intact) Microalb/Creat Ratio Thyroglobulin Antibody 05/25/20 05/25/20 05/25/20 10:10 10:10 10:10 Hgb 10.3 L Hct 36.5 L Sodium 143 Potassium 4.8 Bicarbonate Creatinine 0.83 Estimated GFR > 60 Hgb A1c Fingerstick Fructosamine 260 Calcium 9.3 AST 14 ALT 8 Albumin 3.7 Triglycerides 94 Cholesterol 186 LDL Cholesterol Direct 139 H LDL Cholesterol, Calc 127 HDL Cholesterol 41 Vitamin B12 25-OH Vitamin D Total 50.3 1,25 Dihydroxy Vit D 29 TSH 0.40 Free T4 1.32 Thyroglobulin TSH 3rd Generation PTH Intact 32 Calcium (PTH Intact) 9.5 Microalb/Creat Ratio Thyroglobulin Antibody 05/25/20 05/25/20 05/25/20 10:10 10:10 10:10 Hgb Hct Sodium Potassium Bicarbonate Creatinine Estimated GFR Hgb A1c Fingerstick Fructosamine Calcium AST ALT Albumin Triglycerides Cholesterol LDL Cholesterol Direct LDL Cholesterol, Calc HDL Cholesterol Vitamin B12 372 25-OH Vitamin D Total 1,25 Dihydroxy Vit D TSH Free T4 Thyroglobulin <0.1 TSH 3rd Generation PTH Intact Calcium (PTH Intact) Microalb/Creat Ratio 12.6 Thyroglobulin Antibody <1 PFSH Medical History Asthma Pericardial effusion Pneumonitis Pleural effusion Hypoglycemia unawareness associated with type 2 diabetes mellitus Post-surgical hypothyroidism half-way (current) use of insulin Postsurgical hypothyroidism Thyroid cancer Dyslipidemia Essential hypertension Hyperparathyroidism Vitamin D deficiency Obesity (BMI 30-39.9) Diabetes type 2, uncontrolled Surgical History Hx of colonoscopy Hx of total thyroidectomy Hx of hysterectomy Family History Father No problems noted. Mother Arthritis Social History Household Members: None Housing: Apartment Alcohol intake: never Patient Tobacco Use Status: Never used Tobacco e-Cigarette/Vaping Use: Never Used Second Hand Smoke Exposure: No service: No Current occupational status: disabled Cognitive needs: No Hearing needs: No Vision needs: No Physical Exam Vital Signs: Last Vital Signs Pulse 61 11/12/23 09:47 BP 170/62 H 11/12/23 09:47 BMI result Body Mass Index 34.2 Absence of Cushingoid features. Absence of acromegalic features. Neck exam reveals healed scar status post thyroidectomy. There is no cervical adenopathy palpated. No carotid bruits present. Lungs CTA. Heart S1 S2, Reg R/R. No M/R/ G. Skin exam reveals absence of vitiligo or acanthosis nigricans. Abdominal exam reveals Soft NT/ND with NA BS. No organomegaly present. Neck Other: . Extrem Other: Visual exam of foot performed. No ulcerations or open lesions. No onchomycosis, no callouses.Pulses 2 + distally Sensation intact to monofilament exam. Vibratory sensation sensed is decreased with 128 Hz tuning fork Results Reviewed Results Reviewed: Laboratory Last Values Glucose (Clinic) 273 mg/dL (60-115) H 11/12/23 09:59 Assessment & Plan Assessment & Plan (1) Thyroid cancer: Code(s): C73 - Malignant neoplasm of thyroid gland Category: Medical Plan: Status post total thyroidectomy with radioactive iodine therapy. Currently replaced on levothyroxine 100 mcgQD. Appears to be clinically euthyroid. Does have detectable thyroglobulin in past but thyroglobulin has been stable recent neck ultrasound showed no abnormal lymph nodes. Plan is to recheck TSH and free T4 as well as thyroglobulin in 6 weeks (2) Diabetes type 2, uncontrolled: Code(s): E11.65 - Type 2 diabetes mellitus with hyperglycemia Category: Medical Qualifiers: Glycemic state: with hyperglycemia Qualified Code(s): E11.65 - Type 2 diabetes mellitus with hyperglycemia Plan: This is a 68-year-old female with a history of type 2 diabetes being treated with metformin, Trulicity and basal insulin with poor glycemic control and no known microvascular or macrovascular complications . Plan is that the patient should check her point cares pre and post meals . She would benefit from use of a iPeen Jamal 2 personal . However, patient is refusing to use the sensor at present.. Can not make any adjustments to regimen with lack of data Most likely. . Will have her follow up with clinical educator. (3) Dyslipidemia: Code(s): E78.5 - Hyperlipidemia, unspecified Category: Medical Plan: This is being followed by her primary care provider who recently adjusted her rosuvastatin. Will defer management to primary care provider Orders: Orders Thyroglobulin 6 Weeks C73 - Malignant neoplasm of thyroid gland Referrals Podiatry Referral E11.65 - Type 2 diabetes mellitus with hyperglycemia Coding Level of Care Code Est Pt Level 4 (13683) Diagnoses Thyroid cancer C73 Uncontrolled type 2 diabetes mellitus with hyperglycemia E11.65 Glycemic state: with hyperglycemia Dyslipidemia E78.5
[2023-11-12 09:47] VITALS: BP 170/62; PULSE 61; BMI 34.2
[2023-11-12 10:04] LABS: Glucose, Whole Blood 273 mg/dL (60-115)
== END 2023-11-12 10:30 | disposition home or self-care (01) ==
PROVIDERS: PCP Internal Medicine; Visit Provider Internal Medicine Endocrinology, Diabetes & Metabolism
DX: C73 Malignant neoplasm of thyroid gland (principal); E11.65 Type 2 diabetes mellitus with hyperglycemia; E78.5 Hyperlipidemia, unspecified
CPT/HCPCS: 99214

== ENCOUNTER → 2023-11-12 09:35 | Outpatient (BNVA) | payer OTHER, SELFPAY | PROVIDERS: PCP Internal Medicine; Visit Provider Internal Medicine Endocrinology, Diabetes & Metabolism | DX: C73 Malignant neoplasm of thyroid gland (principal); E11.65 Type 2 diabetes mellitus with hyperglycemia; E78.5 Hyperlipidemia, unspecified | CPT/HCPCS: 82947; 99212 ==

== ENCOUNTER 2023-11-19 09:43 | Outpatient (AMB) | payer OTHER, SELFPAY ==
--- NOTE | 2023-11-19 10:45 | MHC.AMDMED ---
Intake Intake Visit Reasons: f/u after seeing trey/CONFIRMED Family Day Care Worker Required: Yes Family Day Care Worker Language: District Commercial Superintendent Name: [place] [facility] [place] Interpreted: non-clinical & clinical Accompanied by: Self / Same As Patient Allergies empagliflozin [From JARDIANCE] Allergy (Intermediate, Verified 11/12/23 09:55) ITCHY/RASH JARDIANCE Allergy (Intermediate, Uncoded 11/12/23 09:55) pruritus HPI Comprehensive Diabetes Asmnt Most Recent Diabetes Results: Microalb/Creat Ratio 4.8 ug/mg cr (<30) 11/07/23 Cholesterol 246 mg/dL (<200) H 11/07/23 HDL Cholesterol 43 mg/dL (>40) 11/07/23 Triglycerides 159 mg/dL (<150) H 11/07/23 Creatinine 0.90 mg/dL (0.5-1.4) 11/07/23 Blood Urea Nitrogen 9 mg/dL (9-16) 11/07/23 Sodium 142 mmol/L (135-145) 11/07/23 Potassium 3.8 mmol/L (3.3-5.1) 11/07/23 Chloride 103 mmol/L (96-108) 11/07/23 Carbon Dioxide 28 mmol/L (22-29) 11/07/23 Calcium 9.8 mg/dL (8.4-10.2) 11/07/23 AST 18 U/L (5-31) 11/07/23 ALT 8 U/L (0-31) 11/07/23 Total Protein 7.5 g/dL (6.5-8.0) 11/07/23 Albumin 3.9 g/dL (3.5-5.0) 11/07/23 [facility] Medical History Asthma Pericardial effusion Pneumonitis Pleural effusion Hypoglycemia unawareness associated with type 2 diabetes mellitus Post-surgical hypothyroidism senior care (current) use of insulin Postsurgical hypothyroidism Thyroid cancer Dyslipidemia Essential hypertension Hyperparathyroidism Vitamin D deficiency Obesity (BMI 30-39.9) Diabetes type 2, uncontrolled Surgical History Hx of colonoscopy Hx of total thyroidectomy Hx of hysterectomy Family History Father No problems noted. Mother Arthritis Social History Household Members: None Housing: Apartment Alcohol intake: never Patient Tobacco Use Status: Never used Tobacco e-Cigarette/Vaping Use: Never Used Second Hand Smoke Exposure: No service: No Current occupational status: disabled Cognitive needs: No Hearing needs: No Vision needs: No Assessment & Plan Assessment & Plan (1) Diabetes mellitus, with long-term current use of insulin: Code(s): E11.9 - Type 2 diabetes mellitus without complications; Z79.4 - senior care (current) use of insulin Plan Learning objectives: The patient was provided with verbal and written education on the following topics as outlined below. Assess patient education level/literacy/barriers Patient questions/concerns, patient has increased blood sugar testing to 3-4 times daily Average glucose for the past 14 days 180 mg/dL, last A1c on 11/07/2023 9.1% Patient has been unable to get Trulicity for the past 3 weeks Recommended to patient she increase Tresiba to 22 units daily while she is unable to get Trulicity 4.5 mg We will follow-up in 1 month, if she is still unable to get Trulicity patient will consider switching to Ozempic The patient met all learning objectives and was able to verbalize understanding and provide teach back of education topics discussed . The patient was provided with the opportunity to ask questions and all questions were answered. Topics covered in today?s session included: Medications (If applicable) Name of medication? Dosing/administration instructions? Mechanism of action? Potential side effects? Potential adverse reaction and appropriate treatment? Review onset, peak, duration Assess for concerns re: insurance coverage, cost, barriers to compliance Insulin/Injectables (If applicable) Storage/care of insulin?? Injection sites? Site rotation? Onset, peak, duration Drawing up insulin? Injecting insulin/other injectables? Sharps disposal Continuous blood glucose monitoring (if applicable) Hypoglycemia and Hyperglycemia Signs and symptoms? Causes?? Treatment? Preventing hypoglycemia? When to seek medical attention Blood glucose targets and how you feel when your blood glucose is in and out of your target ranges. Monitoring and knowing your A1C. What can make blood glucose go up and down and preventing high and low blood glucose. Review of blood sugar targets in expected goal range and outside of expected goal range. Problem solving and preventing hyper/hypoglycemia. Sick day management of diabetes. Using blood sugar results in decision making process in managing diabetes. ?Patient was receptive to information provided and participated in the discussion. Asked?appropriate questions and demonstrated good understanding of the topics discussed.? ? Educational Materials: The patient was provided with the following written educational materials: Target Goal handout Smart Goal: Patient will test glucose 4 times a day until next visit in 1 month Patient Response to instructions: Comprehension of Instructions: Good Readiness to make changes:? Contemplation How confident they feel about making changes: Positive Patient Instructions: Incrementar Tresiba de 18 unidades a 22 unidades Seguimiento con Educador en Diabetes en 1 mes Coding Level of Care Code Est Pt Level 1 (95583) Diagnoses Diabetes mellitus, with long-term current use of insulin E11.9; Z79.4
== END 2023-11-19 10:48 | disposition home or self-care (01) ==
PROVIDERS: PCP Internal Medicine; Visit Provider Registered Nurse Diabetes Educator
DX: E11.9 Type 2 diabetes mellitus without complications (principal); Z79.4 Long term (current) use of insulin

== ENCOUNTER → 2023-11-19 09:43 | Outpatient (BNVA) | payer OTHER, SELFPAY | PROVIDERS: PCP Internal Medicine; Visit Provider Registered Nurse Diabetes Educator | DX: E11.9 Type 2 diabetes mellitus without complications (principal); Z79.4 Long term (current) use of insulin | CPT/HCPCS: 99211 ==

== ENCOUNTER 2023-12-07 11:38 | Outpatient (AMB) | payer OTHER, SELFPAY ==
--- NOTE | 2023-12-07 11:39 | MHC.OFFVIS ---
Intake Visit Reasons: O/V B/L knee O.A Intake Note: Alee a 68 year old female who presents today for a follow up of bilateral knee pain. Patient was last seen on 05/10/22, she was referred to PT and a topical cream was prescribed, she deferred injection as she is a diabetic. She states she has not done PT for her knees. Currently she has knee pain when she walks and sometimes when she is sleeping. Lead Injection Mold Technician Required: Yes Lead Injection Mold Technician Language: Neon Sign Erector Name: Andreina ([id number]) Allergies empagliflozin [From JARDIANCE] Allergy (Intermediate, Verified 12/07/23 11:39) ITCHY/RASH JARDIANCE Allergy (Intermediate, Uncoded 12/07/23 11:39) pruritus Medication List - Last Reconciled 12/07/23 by Lena Puga PA-C amiodarone 200 mg PO DAILY apixaban (Eliquis) 5 mg PO BID bisacodyl (Dulcolax (bisacodyl)) 20 mg (4 x 5 mg) PO ONCE 1 day blood pressure test kit-large As directed blood sugar diagnostic (ngmocoTouch Ultra Test strips) USE TO TEST BLOOD SUGAR FOUR TIMES PER DAY blood-glucose meter (FreeStyle Lite Meter kit) TEST ONCE A DAY blood-glucose meter (OneTouch Ultra2 Meter) As directed test 4 times a day cholecalciferol (vitamin D3) (Vitamin D3) 50 mcg PO DAILY diclofenac sodium 1% (Arthritis Pain (diclofenac)) 2 grams topical QID PRN 30 days dulaglutide (Trulicity) 4.5 mg (0.5 mL) subcut QWEEK ferrous sulfate 325 mg PO DAILY 90 days folic acid 1 mg PO DAILY furosemide 20 mg PO DAILY gabapentin 300 mg PO BID insulin degludec 22 units (0.22 mL) subcut QAM 90 days lancets As directed lancets (OneTouch Delica Plus Lancet) USE TO TEST BLOOD SUGAR FOUR TIMES DAILY lancets (FreeStyle Lancets) As directed test 4X a day levothyroxine 137 mcg PO DAILY 90 days lisinopril 10 mg PO DAILY 90 days metformin ER 500 mg PO BID 90 days metoprolol succinate ER 100 mg PO DAILY mirtazapine 7.5 mg PO BEDTIME nebulizers As directed pen needle, diabetic (Comfort EZ Pen [place]) 1 ea subcut .4x daily 30 days polyethylene glycol 3350 (Miralax) 238 grams PO ONCE rosuvastatin 40 mg PO DAILY 90 days Ventolin HFA 90 mcg/actuation (albuterol sulfate) 2 puffs inhalation Q6H PRN 30 days NS HPI HPI O/V B/L knee O.A : Details: 68-year-old female who returns to the office today for a follow-up of bilateral knee pain. She continues to have pain in her knees with walking and occasionally with sleeping. She was sent to physical therapy in her previous visit however she did not attend the sessions. She was also prescribed topical cream in the last visit. She has a history of diabetes. [facility] Medical History Asthma Pericardial effusion Pneumonitis Pleural effusion Hypoglycemia unawareness associated with type 2 diabetes mellitus Post-surgical hypothyroidism [facility] (current) use of insulin Postsurgical hypothyroidism Thyroid cancer Dyslipidemia Essential hypertension Hyperparathyroidism Vitamin D deficiency Obesity (BMI 30-39.9) Diabetes type 2, uncontrolled Surgical History Hx of colonoscopy Hx of total thyroidectomy Hx of hysterectomy Family History Father No problems noted. Mother Arthritis Social History Household Members: None Housing: Apartment Alcohol intake: never Patient Tobacco Use Status: Never used Tobacco e-Cigarette/Vaping Use: Never Used Second Hand Smoke Exposure: No service: No Current occupational status: disabled Cognitive needs: No Hearing needs: No Vision needs: No Review of Systems Const All systems reviewed & are unremarkable except as noted in HPI and below Physical Exam Extrem Other: Bilateral knee: Skin intact, no erythema or joint effusion. Tenderness along the medial and lateral joint line. Full ROM with crepitus. Negative Dylan?s. No ligamentous laxity. NVI. Assessment & Plan Assessment & Plan (1) Osteoarthritis of patellofemoral joints of both knees: Code(s): M17.0 - Bilateral primary osteoarthritis of knee Category: Medical Plan We discussed options which include PT, NSAIDs and injections. The patient will defer on the injection today and proceed with PT and NSAIDs. If symptoms persist, she will contact me for an injection, otherwise, PRN. Orders: Orders PT Evaluation and Treatment Today M17.0 - Bilateral primary osteoarthritis of knee Patient Instructions: Scribed for Lena Puga PA-C, by [place] medical physiologist, on 12/07/2023 at 1:45 PM EST.? I, Lena Puga PA-C, have personally reviewed and agree with the information entered by the scribe. Coding Level of Care Code Est Pt Level 3 (09228) Diagnoses Osteoarthritis of patellofemoral joints of both knees M17.0
== END 2023-12-07 12:04 | disposition home or self-care (01) ==
LOC: HO.HOS 11:38
PROVIDERS: PCP Internal Medicine; Visit Provider Physician Assistant
DX: M17.0 Bilateral primary osteoarthritis of knee (principal)
CPT/HCPCS: 99213

== ENCOUNTER → 2023-12-07 11:38 | Outpatient (BNVA) | payer OTHER, SELFPAY | PROVIDERS: PCP Internal Medicine; Visit Provider Physician Assistant | DX: M17.0 Bilateral primary osteoarthritis of knee (principal) | CPT/HCPCS: 99212 ==

== ENCOUNTER 2023-12-20 09:14 | Outpatient (AMB) | payer OTHER, SELFPAY ==
--- NOTE | 2023-12-20 10:00 | MHC.AMDMED ---
Intake Intake Visit Reasons: f/u Type 2 DM/CONFIRMED Car Electronics Installer Required: Yes Car Electronics Installer Language: Sales Service Professional Name: [place]ma [facility] [place] Interpreted: non-clinical & clinical Accompanied by: Self / Same As Patient Allergies empagliflozin [From JARDIANCE] Allergy (Intermediate, Verified 12/07/23 11:39) ITCHY/RASH JARDIANCE Allergy (Intermediate, Uncoded 12/07/23 11:39) pruritus HPI Comprehensive Diabetes Asmnt Most Recent Diabetes Results: Microalb/Creat Ratio 4.8 ug/mg cr (<30) 11/07/23 Cholesterol 246 mg/dL (<200) H 11/07/23 HDL Cholesterol 43 mg/dL (>40) 11/07/23 Triglycerides 159 mg/dL (<150) H 11/07/23 Creatinine 0.85 mg/dL (0.5-1.4) 11/27/23 Blood Urea Nitrogen 9 mg/dL (9-16) 11/27/23 Sodium 143 mmol/L (135-145) 11/27/23 Potassium 4.3 mmol/L (3.3-5.1) 11/27/23 Chloride 103 mmol/L (96-108) 11/27/23 Carbon Dioxide 30 mmol/L (22-29) H 11/27/23 Calcium 9.0 mg/dL (8.4-10.2) 11/27/23 AST 14 U/L (5-31) 11/27/23 ALT 6 U/L (0-31) 11/27/23 Total Protein 7.1 g/dL (6.5-8.0) 11/27/23 Albumin 3.9 g/dL (3.5-5.0) 11/27/23 [facility] Medical History Asthma Pericardial effusion Pneumonitis Pleural effusion Hypoglycemia unawareness associated with type 2 diabetes mellitus Post-surgical hypothyroidism senior care (current) use of insulin Postsurgical hypothyroidism Thyroid cancer Dyslipidemia Essential hypertension Hyperparathyroidism Vitamin D deficiency Obesity (BMI 30-39.9) Diabetes type 2, uncontrolled Surgical History Hx of colonoscopy Hx of total thyroidectomy Hx of hysterectomy Family History Father No problems noted. Mother Arthritis Social History Household Members: None Housing: Apartment Alcohol intake: never Patient Tobacco Use Status: Never used Tobacco e-Cigarette/Vaping Use: Never Used Second Hand Smoke Exposure: No service: No Current occupational status: disabled Cognitive needs: No Hearing needs: No Vision needs: No Assessment & Plan Assessment & Plan (1) Hypoglycemia unawareness associated with type 2 diabetes mellitus: Code(s): E11.649 - Type 2 diabetes mellitus with hypoglycemia without coma Plan: Learning objectives: The patient was provided with verbal and written education on the following topics as outlined below. The patient met all learning objectives and was able to verbalize understanding and provide teach back of education topics discussed . The patient was provided with the opportunity to ask questions and all questions were answered. Patient Assessment Assess patient education level/literacy/barriers, patient can identify carbohydrate foods that she eats from food list Patient questions/concerns, patient did have 1 episode of hypoglycemia, many of the other fasting glucoses fall in the 70s At last visit we had increased Tresiba to 22 units, recommended at this visit to reduce Tresiba to 20 units Patient also reports she was able to obtain Trulicity 4.5 mg, but has only taken 1 dose Patient is also on metformin ER 500 mg b.i.d. Continued discussion about glucose sensor, patient is not interested in starting CGM at this time but reports that she will consider Blood glucose monitoring When/how often to test Target blood sugar ranges Patient's fasting numbers range from 62 mg/dL to 159 mg/dL Patient's post meal numbers later in the day range in the 200s to 300 Introduction to Nutrition Importance of healthy diet in managing DM Diet is personalized to individual preference Review patient?s regular diet/food preferences Who prepares meals/does food shopping/ Dining out?/ Barriers? How diet effects glucose Eating 3 balanced meals a day with small, healthy snacks between meals Review food groups Carbohydrates: What is a carbohydrate/Which food/food groups are considered carbohydrates Effect of carbohydrates on blood glucose Portion sizes Reading food labels Basic carb counting (if applicable per nursing assessment) Plate method Meal planning Recommendations: Follow plate method, consistent carbs and read nutritional labels. Smart Goal: Educational Materials: The patient was provided with the following written educational materials: Planning Healthy Meals, common [place] foods Handouts in Cypriot Patient Response to instructions: Comprehension of Instructions: Fair Readiness to make changes: Contemplation How confident they feel about making changes: Fair Patient will follow-up with knockup worker in 1 month Portions of this note were created using voice recognition software, please excuse any words or phrases that may have been misinterpreted. Patient Instructions: Incrementar Tresiba de 22 unidades a 20 unidades Seguimiento con Educador en Diabetes en 1 mes Coding Level of Care Code Est Pt Level 1 (83598) Diagnoses Hypoglycemia unawareness associated with type 2 diabetes mellitus E11.649
== END 2023-12-20 10:10 | disposition home or self-care (01) ==
PROVIDERS: PCP Internal Medicine; Visit Provider Registered Nurse Diabetes Educator
DX: E11.649 Type 2 diabetes mellitus with hypoglycemia without coma (principal)

== ENCOUNTER → 2023-12-20 09:14 | Outpatient (BNVA) | payer OTHER, SELFPAY | PROVIDERS: PCP Internal Medicine; Visit Provider Registered Nurse Diabetes Educator | DX: E11.649 Type 2 diabetes mellitus with hypoglycemia without coma (principal) | CPT/HCPCS: 99211 ==

== ENCOUNTER 2024-01-11 12:33 | Outpatient (AMB) | payer OTHER, SELFPAY ==
--- NOTE | 2024-01-11 12:50 | MHC.PC.OV ---
Vital Signs 01/11/24 12:52 Height 5 ft 1 in Weight 176 lb 6 oz BMI 33.3 BP 130/72 Blood Pressure Location Rt brachial Position Sitting Pulse 60 Pulse Source Pulse Oximeter Pulse Oximetry (%) 96 Oxygen Delivery Method Room Air Intake Visit Reasons: high bp Intake Note: Patient is here for hospital discharge follow up. Patient was discharged from [facility] on 12/20/23. Pt is request a little to increase manager project management service due to having stroke and having a hard time taking care of self. Charcoal Burner Beehive Kiln Required: Yes Charcoal Burner Beehive Kiln Language: Aircraft Structural Design Engineer Name: Minor ([id number]) Information Interpreted: non-clinical & clinical Information Technology Consultant: Not Required per policy Accompanied by: Self / Same As Patient Allergies empagliflozin [From JARDIANCE] Allergy (Intermediate, Verified 01/11/24 12:51) ITCHY/RASH JARDIANCE Allergy (Intermediate, Uncoded 01/11/24 12:51) pruritus Tobacco use date assessed: 01/11/24 Fall risk assessment: 1 Fall in past year Last assessed Fall Risk: 01/11/24 Dental Screening Dental Screen Date: 07/09/23 HPI HPI Comments History of Present Illness Details 68 y/o female patient who presents to the clinic today for ED follow up. Pt was admitted at [facility] for Afib, dizziness and feeling sick when climbing up the stairs. DOS: 12/02/23 and DOD: 12/03/23. Pt has an Appointment with Cardio 05/2024. She has no concerns today. [facility] Medical History Asthma Pericardial effusion Pneumonitis Pleural effusion Hypoglycemia unawareness associated with type 2 diabetes mellitus Post-surgical hypothyroidism senior living (current) use of insulin Postsurgical hypothyroidism Thyroid cancer Dyslipidemia Essential hypertension Hyperparathyroidism Vitamin D deficiency Obesity (BMI 30-39.9) Diabetes type 2, uncontrolled Surgical History Hx of colonoscopy Hx of total thyroidectomy Hx of hysterectomy Family History Father No problems noted. Mother Arthritis Social History Household Members: None Housing: Apartment Alcohol intake: never Patient Tobacco Use Status: Never used Tobacco e-Cigarette/Vaping Use: Never Used Second Hand Smoke Exposure: No service: No Current occupational status: disabled Cognitive needs: No Hearing needs: No Vision needs: No Questionnaire Thrive Questionnaire Date Thrive assessed: 07/09/23 DIVINA-7 AMB Questionnaire DIVINA-7 Date DIVINA - 7 assessed: 07/09/23 Source: Developed by Drs. Kofi Arrington, Tracy Rowe, Al Kulkarni and colleagues, with an educational bobby from [employer]. Review of Systems Const All systems reviewed & are unremarkable except as noted in HPI and below Physical exam (Primary Care) Vital Signs: Last Vital Signs Pulse 60 01/11/24 12:52 BP 130/72 01/11/24 12:52 Pulse Ox 96 01/11/24 12:52 Oxygen Delivery Method Room Air 01/11/24 12:52 BMI result Body Mass Index 33.3 Tobacco/Smoking Status: Tobacco use Status Tobacco use date assessed 01/11/24 01/11/24 13:04 Patient Tobacco Use Status Never used Tobacco 01/11/24 12:50 e-Cigarette/Vaping Use Never Used 01/11/24 12:50 Thrive Assessment: Date of Thrive Assessment Date Thrive assessed 07/09/23 01/11/24 12:50 Const General: comfortable and no acute distress Nutritional Appearance: obese Orientation/consciousness: patient oriented x3 Resp Effort & Inspection: normal respiratory effort and able to speak in complete sentences Cardio Heart sounds: S1 normal heart sound present and S2 normal heart sound present Neuro General: patient oriented x3, gait normal and moves all extremities Psych Speech and movement: Normal speech and movement present Vital Signs: Last Vital Signs Pulse 60 01/11/24 12:52 BP 130/72 01/11/24 12:52 Pulse Ox 96 01/11/24 12:52 Oxygen Delivery Method Room Air 01/11/24 12:52 BMI result Body Mass Index 33.3 Const General: comfortable and no acute distress Nutritional Appearance: obese Orientation/consciousness: patient oriented x3 Resp Effort & Inspection: normal respiratory effort and able to speak in complete sentences Cardio Heart sounds: S1 normal heart sound present and S2 normal heart sound present Neuro General: patient oriented x3, gait normal and moves all extremities Psych Speech and movement: Normal speech and movement present Assessment and Plan Assessment & Plan (1) Atrial fibrillation: Code(s): I48.91 - Unspecified atrial fibrillation Qualifiers: Atrial fibrillation type: paroxysmal Qualified Code(s): I48.0 - Paroxysmal atrial fibrillation Plan: Stable, continue on current regiment. Continue with Cardiology as scheduled. Coding Level of Care Code Est Pt Level 4 (24670) Diagnoses Paroxysmal atrial fibrillation I48.0 Atrial fibrillation type: paroxysmal Comment Spent 20 minutes reviewing hospital notes and labs.
[2024-01-11 12:52] VITALS: BP 130/72; PULSE 60; O2SAT 96; BMI 33.3
== END 2024-01-11 13:36 | disposition home or self-care (01) ==
PROVIDERS: PCP Internal Medicine; Visit Provider Nurse Practitioner Family
DX: I48.0 Paroxysmal atrial fibrillation (principal)
CPT/HCPCS: 99214

== ENCOUNTER 2024-02-07 09:33 | Outpatient (AMB) | payer OTHER, SELFPAY ==
--- NOTE | 2024-02-07 10:18 | A.OFFVIS_ITS ---
Intake Intake Visit Reasons: 60 min Early Childhood Associate Required: Yes Early Childhood Associate Language: Oncology Coordinator Name[place] [facility] [place] Interpreted: non-clinical & clinical Accompanied by: Self / Same As Patient Allergies empagliflozin [From JARDIANCE] Allergy (Intermediate, Verified 01/11/24 12:51) ITCHY/RASH JARDIANCE Allergy (Intermediate, Uncoded 01/11/24 12:51) pruritus HPI Comprehensive Diabetes Asmnt Most Recent Diabetes Results: Microalb/Creat Ratio 4.8 ug/mg cr (<30) 11/07/23 Cholesterol 246 mg/dL (<200) H 11/07/23 HDL Cholesterol 43 mg/dL (>40) 11/07/23 Triglycerides 159 mg/dL (<150) H 11/07/23 Creatinine 0.85 mg/dL (0.5-1.4) 11/27/23 Blood Urea Nitrogen 9 mg/dL (9-16) 11/27/23 Sodium 143 mmol/L (135-145) 11/27/23 Potassium 4.3 mmol/L (3.3-5.1) 11/27/23 Chloride 103 mmol/L (96-108) 11/27/23 Carbon Dioxide 30 mmol/L (22-29) H 11/27/23 Calcium 9.0 mg/dL (8.4-10.2) 11/27/23 AST 14 U/L (5-31) 11/27/23 ALT 6 U/L (0-31) 11/27/23 Total Protein 7.1 g/dL (6.5-8.0) 11/27/23 Albumin 3.9 g/dL (3.5-5.0) 11/27/23 [facility] Medical History Asthma Pericardial effusion Pneumonitis Pleural effusion Hypoglycemia unawareness associated with type 2 diabetes mellitus Post-surgical hypothyroidism 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 Mother Arthritis Social History Household Members: None Housing: Apartment Alcohol intake: never Patient Tobacco Use Status: Never used Tobacco e-Cigarette/Vaping Use: Never Used Second Hand Smoke Exposure: No service: No Current occupational status: disabled Cognitive needs: No Hearing needs: No Vision needs: No Assessment & Plan Assessment & Plan (1) Diabetes mellitus, with long-term current use of insulin: Code(s): E11.9 - Type 2 diabetes mellitus without complications; Z79.4 - exterminator termite (current) use of insulin Plan: CGM Info Instructed Pt on what CGM can and can't do CGM Can: Give Pt minute by minute reading of glucose levels Displays glucose trend arrows that represents the direction glucose levels are fluctuating Give insight on decisions about how to dose insulin CGM cannot: Improve glucose control on its own Completely eliminate the need for all finger sticks Make dosing decision for you CGM is the reading of glucose in the interstitial fluid not actual blood glucose, finger sticks are still necessary when Pt's symptom?s do not match sensor reading and if sensors prompts Pt to do a fingerstick Patient? is interested in the Pt in interested in Dexcom G7 Reviewed delay of CGM from fingersticks Reminded pt that if symptoms do not match sensor still needs to check fingersticks. Instructed patient sensors water proof you can shower, or swim do not submerge sensor in water for over 30 minutes Is sensor falls off cannot put back in you need to replace sensor, customer service number given to patient for sensor replacement Sample Dexcom G7 Sensor placed on the back of R arm Patient left visit with sensor in warmup Pt Dexcom ID: is her phone # Pt's Dexcom password: [id number] Reviewed how to interpret trend arrows Reminded patient that to check finger sticks if symptoms do not match sensor reading. Discussed lag time between finger stick and sensor data.? Instructed patient she should always keep blood glucometer for backup testing if needed Reviewed delay of CGM from fingersticks Reminded pt that if symptoms do not match sensor still needs to check fingersticks. We need to download Dexcom Clarity sydni Portions of this note were created using voice recognition software, please excuse any words or phrases that may have been misinterpreted. Patient Instructions: Instrucciones para el paciente: CGM proporciona informaci?n sobre el control de la glucosa en yosef a lo aide del d?a, incluidas la hiperglucemia y la hipoglucemia. Contin?e controlando la glucosa en yosef seg?n las instrucciones. Siga las pautas de nutrici?n proporcionadas. Informe cualquier molestia de inmediato al proveedor de atenci?n m?dica. Mantente izzy hidratado. Puede ba?arse, ducharse, nadar y hacer ejercicio mientras usa el sensor de glucosa. No sumerja el sensor de glucosa en agua fritz m?s de 30 minutos. Retire el sensor para lia resonancia magn?jennifer o lia tomograf?a computarizada. Evite la m?quina de shen X en los aeropuertos: retire el sensor o solicite la varita Coding Level of Care Code Est Pt Level 1 (89261) Diagnoses Diabetes mellitus, with long-term current use of insulin E11.9; Z79.4
== END 2024-02-07 10:23 | disposition home or self-care (01) ==
PROVIDERS: PCP Internal Medicine; Visit Provider Registered Nurse Diabetes Educator
DX: E11.9 Type 2 diabetes mellitus without complications (principal); Z79.4 Long term (current) use of insulin

== ENCOUNTER → 2024-02-07 09:33 | Outpatient (BNVA) | payer OTHER, SELFPAY | PROVIDERS: PCP Internal Medicine; Visit Provider Registered Nurse Diabetes Educator | DX: E11.9 Type 2 diabetes mellitus without complications (principal); Z79.4 Long term (current) use of insulin | CPT/HCPCS: 99211 ==

== ENCOUNTER 2024-02-19 08:36 | Outpatient (AMB) | payer OTHER, SELFPAY ==
--- NOTE | 2024-02-19 09:47 | MHC.AMDMED ---
Intake Intake Visit Reasons: 60 min Deep Fat Fry Cook Required: Yes Deep Fat Fry Cook Language: Laborer Bituminous Paving Name: [id number] Information Interpreted: non-clinical & clinical Accompanied by: Self / Same As Patient Allergies empagliflozin [From JARDIANCE] Allergy (Intermediate, Verified 01/11/24 12:51) ITCHY/RASH JARDIANCE Allergy (Intermediate, Uncoded 01/11/24 12:51) pruritus HPI Comprehensive Diabetes Asmnt Most Recent Diabetes Results: Creatinine 0.85 mg/dL (0.5-1.4) 11/27/23 Blood Urea Nitrogen 9 mg/dL (9-16) 11/27/23 Sodium 143 mmol/L (135-145) 11/27/23 Potassium 4.3 mmol/L (3.3-5.1) 11/27/23 Chloride 103 mmol/L (96-108) 11/27/23 Carbon Dioxide 30 mmol/L (22-29) H 11/27/23 Calcium 9.0 mg/dL (8.4-10.2) 11/27/23 AST 14 U/L (5-31) 11/27/23 ALT 6 U/L (0-31) 11/27/23 Total Protein 7.1 g/dL (6.5-8.0) 11/27/23 Albumin 3.9 g/dL (3.5-5.0) 11/27/23 [facility] Medical History Asthma Pericardial effusion Pneumonitis Pleural effusion Hypoglycemia unawareness associated with type 2 diabetes mellitus Post-surgical hypothyroidism shelter (current) use of insulin Postsurgical hypothyroidism Thyroid cancer Dyslipidemia Essential hypertension Hyperparathyroidism Vitamin D deficiency Obesity (BMI 30-39.9) Diabetes type 2, uncontrolled Surgical History Hx of colonoscopy Hx of total thyroidectomy Hx of hysterectomy Family History Father No problems noted. Mother Arthritis Social History Household Members: None Housing: Apartment Alcohol intake: never Patient Tobacco Use Status: Never used Tobacco e-Cigarette/Vaping Use: Never Used Second Hand Smoke Exposure: No service: No Current occupational status: disabled Cognitive needs: No Hearing needs: No Vision needs: No Assessment & Plan Assessment & Plan (1) Diabetes mellitus, with long-term current use of insulin: Code(s): E11.9 - Type 2 diabetes mellitus without complications; Z79.4 - shelter (current) use of insulin Plan: Personal Continuous Glucose Monitor: Patients CGM information reviewed Reviewed patient's sensor data: Hypoglycemia: ? 0% Hyperglycemia:? 45% Time in Range:? 55% Patient is experiencing postprandial hyperglycemia Patient is currently on Tresiba 22 units daily, would not recommend increasing Tresiba due to downward trend overnight Metformin 500 mg b.i.d. Trulicity 4.5 mg weekly Patient denies missing medication Reviewed with patient common carbohydrates that she is eating currently Patient reports that she eats small to moderate size carbohydrate portions at mealtime. She is eating 2-3 meals daily Patient would benefit from medication that would printer floor covering assistant bringing post meal glucose numbers back into target At today's visit we set up Dexcom clarity Patient is also waiting on PA approval for her Dexcom G7 sensors Patient given 2 sample Dexcom G7 sensors Recommended to patient she move appointment with Dr. Naidu in to March, for medication review Patient will follow-up with environmental educator 2 weeks after appointment with Dr. Naidu Portions of this note were created using voice recognition software, please excuse any words or phrases that may have been misinterpreted. Patient Instructions: Move appointment with Dr. Naidu in to March, for medication review Patient will follow-up with environmental educator 2 weeks after appointment with Dr. Naidu Coding Level of Care Code Est Pt Level 1 (46493) Diagnoses Diabetes mellitus, with long-term current use of insulin E11.9; Z79.4
== END 2024-02-19 10:00 | disposition home or self-care (01) ==
PROVIDERS: PCP Internal Medicine; Visit Provider Registered Nurse Diabetes Educator
DX: E11.9 Type 2 diabetes mellitus without complications (principal); Z79.4 Long term (current) use of insulin

== ENCOUNTER → 2024-02-19 08:36 | Outpatient (BNVA) | payer OTHER, SELFPAY | PROVIDERS: PCP Internal Medicine; Visit Provider Registered Nurse Diabetes Educator | DX: E11.9 Type 2 diabetes mellitus without complications (principal); Z79.4 Long term (current) use of insulin | CPT/HCPCS: 99211 ==

== ENCOUNTER 2024-02-21 12:12 | Outpatient (REF) | payer OTHER, SELFPAY ==
--- NOTE | ~2024-02-21 | MM_ITS ---
EXAMINATION: MM SCREENING DIGITAL BREAST TOMOSYNTHESIS, BILATERAL CLINICAL INFORMATION: Screening. Asymptomatic. COMPARISON: Mammography: Available prior examinations TECHNIQUE: Digital breast tomosynthesis is performed in both the craniocaudal and mediolateral oblique views along with computer-aided detection (CAD). Synthesized 2D images are generated from the tomosynthesis. FINDINGS: There are scattered areas of fibroglandular density (ACR BI-RADS breast composition Category b). There are no significant masses, abnormal calcifications, or other abnormalities. MM/MM tomosynthesis screening BI IMPRESSION: No mammographic evidence of malignancy. ASSESSMENT: BI-RADS BI-RADS 1 - Negative RECOMMENDATION: Routine annual mammography screening. 1 year F/U This examination should not preclude the clinical evaluation of a suspicious palpable abnormality. This patient's information was entered into a reminder system with a target due date for their next mammogram. Electronically signed by: Katie Burton DO 03/20/2024 07:00 PM EDT
== END 2024-02-21 12:13 | disposition home or self-care (01) ==
LOC: HO.MAMMO 12:12
PROVIDERS: PCP Internal Medicine; Visit Provider Internal Medicine
DX: Z12.31 Encounter for screening mammogram for malignant neoplasm of breast (principal)
CPT/HCPCS: 77063; 77067

== ENCOUNTER → 2024-02-21 13:00 | Outpatient (BNV) | payer OTHER, SELFPAY | PROVIDERS: PCP Internal Medicine; Visit Provider Internal Medicine | DX: Z12.31 Encounter for screening mammogram for malignant neoplasm of breast (principal) | CPT/HCPCS: 77063; 77067 ==

== ENCOUNTER 2024-02-22 09:04 | Outpatient (AMB) | payer OTHER, SELFPAY ==
--- NOTE | 2024-02-22 09:05 | A.OFFVIS_ITS ---
Vital Signs 02/22/24 09:07 Height 5 ft 1 in Weight 182 lb 15.739 oz BMI 34.6 BP 132/78 Blood Pressure Location Rt brachial Position Sitting Pulse 62 Pulse Source Pulse Oximeter Intake Visit Reasons: Type 2 DM and thyroid Cancer/CONFIRMED Intake Note: Patient presents today to re-establish treatment for Type 2 Diabetes Mellitus: Last Diabetic eye exam was on: 05/2023 Last Podiatry exam was on: Does not see a Shopping Inspector Most recent HbA1c: 8.7%, 02/22/2024 Random Glucose- 139 mg/dL, Today Cardiac Rehab Nurse Required: Yes Cardiac Rehab Nurse Language: Chip Washer Services: Cardiac Rehab Nurse Present Cardiac Rehab Nurse Name: LATASHA Zapata/DINAH OVIEDO Information Interpreted: non-clinical & clinical Accompanied by: Self / Same As Patient Allergies empagliflozin [From JARDIANCE] Allergy (Intermediate, Verified 02/22/24 09:06) ITCHY/RASH JARDIANCE Allergy (Intermediate, Uncoded 02/22/24 09:06) pruritus HPI Comments Details: 69 yo female today for follow-up visit for diabetes management She is also followed by Dr. Naidu who last saw her in October. She has an appt set up with Dr. Naidu next month for Thyroid cancer which was not addressed at this visit. She saw Sabra MEJIA last month and was set up with a Dexcom sensor along with clarity sydni on her phone. A1c in the office today is 8.7%. Dexcom average glucose: 170 14 day continous glucose monitor report reviewed Time in ranges: [10 ] % very high (above 250) 31 % high ?(181-250) 57 % in range ?(70-180] 2 % low (69-55) 1 % ?very low (below 54) Fifty-eight Standard Deviation Details [she is having mild hypoglycemia in the 70 range after 03:00 to 06:00 on some days. Her readings are elevated postprandial supper ] She has diabetes type 2 diagnosed 20 years ago. Current medication: Tresiba 22 units am Humalog 6 units am not taking (not taking trulicity 3.0 mg Metformin ER 500mg bid She tried Jardiance and Farxiga but had yeast infection. She is having some diarrhea secondary to the metformin. She has no known retinopathy, nephropathy, CAD, PVD microalbumin 12 11/22 c/o some numbness and diminished sensation On statin last LDL elevated (may be secondary to elevated TSH) History of + CVA Has IV THERAPY NURSE for assistance Last opth 08/2502/12/18 DEXA scan normal range BMD and T-score in all sites. Fibrosis-4 (Fib-4) Index for liver fibrosis (calculated on most recent lab work 11/22) [1.15 ] points Advanced fibrosis [excluded } Approximate Fibrosis stage Yusuf [ 0-1] *Use with caution in patients <35 or >65 years old, as the score has been shown to be less reliable in these patients. She requests refill of thyroid medication. Due for recheck re: elevated TSH on last check [facility] Medical History Asthma Pericardial effusion Pneumonitis Pleural effusion Hypoglycemia unawareness associated with type 2 diabetes mellitus Post-surgical hypothyroidism senior care (current) use of insulin Postsurgical hypothyroidism Thyroid cancer Dyslipidemia Essential hypertension Hyperparathyroidism Vitamin D deficiency Obesity (BMI 30-39.9) Diabetes type 2, uncontrolled Surgical History Hx of colonoscopy Hx of total thyroidectomy Hx of hysterectomy Family History Father No problems noted. Mother Arthritis Social History Household Members: None Housing: Apartment Alcohol intake: never Patient Tobacco Use Status: Never used Tobacco e-Cigarette/Vaping Use: Never Used Second Hand Smoke Exposure: No service: No Current occupational status: disabled Cognitive needs: No Hearing needs: No Vision needs: No Physical Exam Vital Signs: Last Vital Signs Pulse 62 02/22/24 09:07 BP 132/78 02/22/24 09:07 BMI result Body Mass Index 34.6 Const Other: Absence of Cushingoid features. Absence of acromegalic features. Neck exam reveals nl size thyroid about 15 gms. No thyroid nodules palpable. No carotid bruits present. Heart S1 S2, Reg R/R. No M/R G. Skin exam reveals absence of vitiligo or acanthosis nigricans. Extrem Other: Visual exam of foot performed. No ulcerations or open lesions. No onchomycosis, no interdigital maceration or fissuring. mild callous left foot plantar.. Sensation absent to monofilament exam. Vibratory sensation is normal with 128 Hz tuning fork. Results AMB Hemoglobin A1c AMB Hemoglobin A1c 8.7 % Last Edit by LATASHA Zapata on 02/22/24 09:26 Results Reviewed Results Reviewed: Laboratory Last Values Glucose (Clinic) 139 mg/dL (60-115) H 02/22/24 09:16 Hgb A1c (Clinic) 8.7 % (4.0-6.0) H 02/22/24 09:23 Laboratory Tests 11/07/23 11/07/23 11/07/23 09:41 10:56 11:47 Plt Count Potassium 3.8 Creatinine Estim Creat Clear Calc Estimated GFR Hgb A1c (Clinic) 9.1 H Calcium 9.8 AST ALT Triglycerides 159 H Cholesterol 246 H LDL Cholesterol, Calc 172 H HDL Cholesterol 43 25-OH Vitamin D Total 31.1 TSH 30.29 H Urine Creatinine 248.12 Urine Microalbumin 12.0 Microalb/Creat Ratio 4.8 11/27/23 02/22/24 09:10 09:23 Plt Count 334 Potassium 4.3 Creatinine 0.85 Estim Creat Clear Calc 62.9 Estimated GFR > 60 Hgb A1c (Clinic) 8.7 H Calcium 9.0 D AST 14 ALT 6 Triglycerides Cholesterol LDL Cholesterol, Calc HDL Cholesterol 25-OH Vitamin D Total TSH Urine Creatinine Urine Microalbumin Microalb/Creat Ratio Assessment & Plan Assessment & Plan (1) Diabetes mellitus, with long-term current use of insulin: Code(s): E11.9 - Type 2 diabetes mellitus without complications; 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 She is having difficulty with tolerating metformin ER and her dose today was reduced to 500 mg daily. Continue Trulicity 4.5 weekly. She was asked to take this consistently as she at times misses doses and we will set an alarm on her phone recurring for each Sunday. She is having some overnight hypoglycemia and Tresiba was dropped from 22 units to 18 units. Humalog 4 units was added prior to the dinner meal. She was asked to contact our office if her sugar average is over 170. Reinforced need to continue with the Dexcom sensor as this is providing valuable insight into her glycemic control and alerting her for any hypos. She is up-to-date with Ophthalmology. She is referred to Podiatry for calluses. Fib 4 calculation for fatty liver: Advanced fibrosis excluded. No referral warranted. (2) Thyroid cancer: Code(s): C73 - Malignant neoplasm of thyroid gland Category: Medical Plan: She will have thyroid labs done today. Last TSH elevated. F/u thyroid cancer with Dr. 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 Medications: New insulin lispro (Humalog KwikPen (U-100) Insulin) 4 units (0.04 mL) subcut DAILY 90 days 3.6 mL 4RF E11.9 - Type 2 diabetes mellitus without complications, Z79.4 - terminal system operator (current) use of insulin Changed From insulin degludec 22 units (0.22 mL) subcut QAM 90 days 19.8 mL 6RF E11.65 - Type 2 diabetes mellitus with hyperglycemia To insulin degludec 18 units (0.18 mL) subcut QAM 90 days 16.2 mL 6RF E11.65 - Type 2 diabetes mellitus with hyperglycemia From metformin ER 500 mg PO BID 90 days 180 tabs 1RF E11.65 - Type 2 diabetes mellitus with hyperglycemia To metformin ER 500 mg PO ONCE 90 days 90 tabs 4RF E11.65 - Type 2 diabetes mellitus with hyperglycemia Patient Instructions: The patient was counseled to achieve a target A1C of 7% (154 avg). Fasting blood sugars should be 90-130 in the morning and less than 180 two hours after meals. Reviewed the relationship between poor diabetic control and the developement of complications The patient was counseled to always carry a source of sugar and on the rule of 15's: Take 3 glucose tablets and repeat again in 15 minutes if blood sugar is not in normal range. Continue to repeat every 15 minutes until blood sugar is normal. The patient was counseled to always carry a source of sugar and on the rule of 15's: Take 3 glucose tablets and repeat again in 15 minutes if blood sugar is not in normal range. Continue to repeat every 15 minutes until blood sugar is normal. The patient was counseled to wear closed toe shoes, never walk barefooted and to inspect the feet daily. For any signs of infection or open wound patient should notify PCP or go to urgent care. Site selection reviewed and need to rotate. Coding Level of Care Code Est Pt Level 4 (45732) Complex EM visit Add On G2211 Diagnoses Diabetes mellitus, with long-term current use of insulin E11.9; Z79.4 Thyroid cancer C73 Time Spent (min) 35 Comment Time spent reviewing labs/provider notes, glucose,sensor reports, face to face, chart doc
[2024-02-22 09:07] VITALS: BP 132/78; PULSE 62; BMI 34.6
[2024-02-22 09:20] LABS: Glucose, Whole Blood 139 mg/dL (60-115)
== END 2024-02-22 09:53 | disposition home or self-care (01) ==
PROVIDERS: PCP Internal Medicine; Visit Provider Nurse Practitioner Adult Health
DX: E11.9 Type 2 diabetes mellitus without complications (principal); Z79.4 Long term (current) use of insulin; C73 Malignant neoplasm of thyroid gland; E11.649 Type 2 diabetes mellitus with hypoglycemia without coma
CPT/HCPCS: 99214; G2211

== ENCOUNTER → 2024-02-22 09:04 | Outpatient (BNVA) | payer OTHER, SELFPAY | PROVIDERS: PCP Internal Medicine; Visit Provider Nurse Practitioner Adult Health | DX: E11.649 Type 2 diabetes mellitus with hypoglycemia without coma (principal); C73 Malignant neoplasm of thyroid gland; Z79.4 Long term (current) use of insulin | CPT/HCPCS: 82947; 83036; 99212 ==

== ENCOUNTER 2024-03-06 12:49 | Outpatient (AMB) | payer OTHER, SELFPAY ==
--- NOTE | 2024-03-06 13:31 | A.OFFVIS_ITS ---
Intake Intake Visit Reasons: T2Dm Allergies empagliflozin [From JARDIANCE] Allergy (Intermediate, Verified 02/22/24 09:06) ITCHY/RASH JARDIANCE Allergy (Intermediate, Uncoded 02/22/24 09:06) pruritus HPI Comprehensive Diabetes Asmnt Most Recent Diabetes Results: Microalb/Creat Ratio 4.8 ug/mg cr (<30) 11/07/23 Cholesterol 246 mg/dL (<200) H 11/07/23 HDL Cholesterol 43 mg/dL (>40) 11/07/23 Triglycerides 159 mg/dL (<150) H 11/07/23 Creatinine 0.85 mg/dL (0.5-1.4) 11/27/23 Blood Urea Nitrogen 9 mg/dL (9-16) 11/27/23 Sodium 143 mmol/L (135-145) 11/27/23 Potassium 4.3 mmol/L (3.3-5.1) 11/27/23 Chloride 103 mmol/L (96-108) 11/27/23 Carbon Dioxide 30 mmol/L (22-29) H 11/27/23 Calcium 9.0 mg/dL (8.4-10.2) 11/27/23 AST 14 U/L (5-31) 11/27/23 ALT 6 U/L (0-31) 11/27/23 Total Protein 7.1 g/dL (6.5-8.0) 11/27/23 Albumin 3.9 g/dL (3.5-5.0) 11/27/23 PFSH Medical History Asthma Pericardial effusion Pneumonitis Pleural effusion Hypoglycemia unawareness associated with type 2 diabetes mellitus 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 Mother Arthritis Social History Household Members: None Housing: Apartment Alcohol intake: never Patient Tobacco Use Status: Never used Tobacco e-Cigarette/Vaping Use: Never Used Second Hand Smoke Exposure: No service: No Current occupational status: disabled Cognitive needs: No Hearing needs: No Vision needs: No Assessment & Plan Assessment & Plan (1) Diabetes mellitus, with long-term current use of insulin: Code(s): E11.9 - Type 2 diabetes mellitus without complications; Z79.4 - skilled nursing (current) use of insulin Plan: Personal Continuous Glucose Monitor: Patients CGM information reviewed Reviewed patient's sensor data: Hypoglycemia: ? 2% Hyperglycemia:? 39% Time in Range:? 59% Average glucose for the last 2 weeks 168? 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, in postprandial hyperglycemia after supper Patient had appointment with [facility] on 02/22/2024 that appointment A1c was 8.7% Patient's current medication is metformin 500 mg daily Tresiba 18 units daily Humalog 4 units before supper Trulicity 4.5 mg weekly Discussed with patient how to treat hypoglycemia with rule of 15s, patient reports using fruit juice to treat low blood sugars Recommended to patient she tries Tresiba 14 units daily, in increase Humalog to 5 units before supper Reviewed how to interpret trend arrows Patient able to insert sensor independently at home without issue.? Portions of this note were created using voice recognition software, please excuse any words or phrases that may have been misinterpreted. Patient Instructions: Tresiba 14 unidades diarias Humalog 5 unidades antes de la balance wheel screw hole driller. Seguimiento con enfermera de educaci?n sobre diabetes en 1 mes. Coding Level of Care Code Est Pt Level 1 (61308) Diagnoses Diabetes mellitus, with long-term current use of insulin E11.9; Z79.4
== END 2024-03-06 13:34 | disposition home or self-care (01) ==
PROVIDERS: PCP Internal Medicine; Visit Provider Registered Nurse Diabetes Educator
DX: E11.9 Type 2 diabetes mellitus without complications (principal); Z79.4 Long term (current) use of insulin

== ENCOUNTER → 2024-03-06 12:49 | Outpatient (BNVA) | payer OTHER, SELFPAY | PROVIDERS: PCP Internal Medicine; Visit Provider Registered Nurse Diabetes Educator | DX: E11.9 Type 2 diabetes mellitus without complications (principal); Z79.4 Long term (current) use of insulin | CPT/HCPCS: 99211 ==

== ENCOUNTER 2024-04-07 13:34 | Outpatient (AMB) | payer OTHER, SELFPAY ==
[2024-04-07 13:36] VITALS: BP 130/70; PULSE 62; BMI 34.5
--- NOTE | 2024-04-07 13:36 | MHC.OFFVIS ---
Vital Signs 04/07/24 13:36 Height 5 ft 1 in Weight 182 lb 8.684 oz BMI 34.5 BP 130/70 Blood Pressure Location Lt brachial Position Sitting Pulse 62 Pulse Source Pulse Oximeter Intake Visit Reasons: Thyroid Cancer-conf Intake Note: Patient present today for Thyroid Cancer follow up visit. Electrical Instrument Maker Required: Yes Electrical Instrument Maker Language: Tag Writer Services: Electrical Instrument Maker Present Information Interpreted: non-clinical & clinical Accompanied by: Self / Same As Patient Allergies empagliflozin [From JARDIANCE] Allergy (Intermediate, Verified 04/07/24 13:41) ITCHY/RASH JARDIANCE Allergy (Intermediate, Uncoded 04/07/24 13:41) pruritus Medication List - Last Reconciled 04/07/24 by Kofi Naidu MD [air conditioner As directed] amiodarone 200 mg PO DAILY apixaban (Eliquis) 5 mg PO BID bisacodyl (Dulcolax (bisacodyl)) 20 mg (4 x 5 mg) PO ONCE 1 day blood pressure test kit-large As directed blood sugar diagnostic (zerobound Ultra Test strips) USE TO TEST BLOOD SUGAR FOUR TIMES PER DAY blood-glucose meter (zerobound Ultra2 Meter) As directed test 4 times a day blood-glucose meter,continuous (Smart GPS Backpack G7 Jackhammer Splitter Operator) As directed blood-glucose sensor (Satietycom G7 Sensor device) As directed change every 10 days cholecalciferol (vitamin D3) (Vitamin D3) 50 mcg PO DAILY diclofenac sodium 1% (Arthritis Pain (diclofenac)) 2 grams topical QID PRN 30 days dulaglutide (Trulicity) 4.5 mg (0.5 mL) subcut QWEEK ferrous sulfate 325 mg PO DAILY 90 days folic acid 1 mg PO DAILY furosemide 20 mg PO DAILY gabapentin 300 mg PO BID incontinence pad, liner, disp Use 1 pad every 6 hours as needed insulin degludec 18 units (0.18 mL) subcut QAM 90 days insulin lispro (Humalog KwikPen (U-100) Insulin) 4 units (0.04 mL) subcut DAILY 90 days lancets (Consertuch Delica Plus Lancet) USE TO TEST BLOOD SUGAR FOUR TIMES DAILY lancets (FreeStyle Lancets) As directed test 4X a day levothyroxine 137 mcg PO DAILY 90 days lisinopril 10 mg PO DAILY 90 days metformin ER 500 mg PO ONCE 90 days metoprolol succinate ER 100 mg PO DAILY mirtazapine 7.5 mg PO BEDTIME nebulizers As directed pen needle, diabetic (Comfort EZ Pen [place]) 1 ea subcut .4x daily 30 days polyethylene glycol 3350 (Miralax) 238 grams PO ONCE rosuvastatin 40 mg PO DAILY 90 days Ventolin HFA 90 mcg/actuation (albuterol sulfate) 2 puffs inhalation Q6H PRN 30 days NS [wipes flushable As directed] HPI Comments Details: 68 yo female today for follow-up visit,for PTC . She sees Adenike Guajardo NP for diabetes She had a whole body scan on 09/29/2020, 48 hours radioactive iodine uptake in the neck was 0.1%. There was a faint focus of radiotracer uptake in the left hypo pharyngeal wall. There was no corresponding abnormality in CT images. Her TSH was 30.16 this was a withdrawal scan. The TG level was 0.6 ng/mL. She has been on Levothyroxine 137 ug QD . Been on this dose since 11/07/2023 Her last thyroglobulin level was detectable 0.1 ng per dL on a nonsuppressed TSH. Prior to that her TG was undetectable. 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 She had ablation with GALAVIZ 104.7 mCi od I 131 on 10/12/17. She had WBS post ablation scan on 09/21/17 , with TSH 38 MIU/ml, showed no metastasis , only uptake in the neck. She had total thyroidectomy on 05/02/[address]. Histology report : tumor size 3.2 x 3.0 x 2.9 cm, papillary thyroid cancer classic variant. Positive lymphovascular extension, positive perineural extension, positive extrathyroidal extension to soft tissue , but not to skeletal muscle, margins free of tumor, LN examined 3/4 positive for tumor. Left upper parathyroid gland was hyperplastic and was removed. Stage is IV a ( T3, N1a, Mx) recent thyroid ultrasound showed no abnormal lymph nodes She reports having occasional palpitations, Denies cold or heat intolerance, she gained 2 lb since last visit, positive constipation, no insomnia, fatigue, dry skin, denies dysphagia, no dyspnea, dysphonia, denies tremors, no irritability, anxiety. She denies nocturia, denies polyuria, polydipsia, numbness, tingling, blurred vision. She has diabetes type 2 diagnosed 20 years ago. . She is currently on Tresiba 16 units in the morning only Humalog 6 units in AM not taking , trulicity 3 mg weekly not taking , Metformin 1 ER 500 mg bid. Has occasional hypoglycemia daily -No She tried Jardiance and Farxiga but had yeast infection. She has not known retinopathy, nephropathy, neuropathy, CVA, CAD, PVD. Last ophthalmology evaluation a while ago . Needs to make appt : no retinopathy. .Needs to see optho 02/12/18 DEXA scan normal range BMD and T-score in all sites. Laboratory Tests 09/20/20 09/20/20 11/04/20 14:02 14:02 12:45 TSH 3.62 Free T4 0.51 L Thyroglobulin 0.6 H Thyroglobulin Antibody <1 Laboratory Tests 09/07/20 12:52 TSH 12.85 H Free T4 0.48 L Laboratory Tests 12/11/19 12/11/19 03/12/20 09:30 09:59 11:37 Hgb Hct Sodium Potassium Bicarbonate 26 Creatinine Estimated GFR Hgb A1c Fingerstick 7.6 9.0 Fructosamine Calcium AST ALT Albumin Triglycerides Cholesterol LDL Cholesterol Direct LDL Cholesterol, Calc HDL Cholesterol Vitamin B12 25-OH Vitamin D Total 1,25 Dihydroxy Vit D TSH Free T4 Thyroglobulin TSH 3rd Generation 0.22 L PTH Intact Calcium (PTH Intact) Microalb/Creat Ratio Thyroglobulin Antibody 05/25/20 05/25/20 05/25/20 10:10 10:10 10:10 Hgb 10.3 L Hct 36.5 L Sodium 143 Potassium 4.8 Bicarbonate Creatinine 0.83 Estimated GFR > 60 Hgb A1c Fingerstick Fructosamine 260 Calcium 9.3 AST 14 ALT 8 Albumin 3.7 Triglycerides 94 Cholesterol 186 LDL Cholesterol Direct 139 H LDL Cholesterol, Calc 127 HDL Cholesterol 41 Vitamin B12 25-OH Vitamin D Total 50.3 1,25 Dihydroxy Vit D 29 TSH 0.40 Free T4 1.32 Thyroglobulin TSH 3rd Generation PTH Intact 32 Calcium (PTH Intact) 9.5 Microalb/Creat Ratio Thyroglobulin Antibody 05/25/20 05/25/20 05/25/20 10:10 10:10 10:10 Hgb Hct Sodium Potassium Bicarbonate Creatinine Estimated GFR Hgb A1c Fingerstick Fructosamine Calcium AST ALT Albumin Triglycerides Cholesterol LDL Cholesterol Direct LDL Cholesterol, Calc HDL Cholesterol Vitamin B12 372 25-OH Vitamin D Total 1,25 Dihydroxy Vit D TSH Free T4 Thyroglobulin <0.1 TSH 3rd Generation PTH Intact Calcium (PTH Intact) Microalb/Creat Ratio 12.6 Thyroglobulin Antibody <1 She is currently on 137 mcg levothyroxine . not taking for 3 wks PFSH Medical History Asthma Pericardial effusion Pneumonitis Pleural effusion Hypoglycemia unawareness associated with type 2 diabetes mellitus Post-surgical hypothyroidism group home (current) use of insulin Postsurgical hypothyroidism Thyroid cancer Dyslipidemia Essential hypertension Hyperparathyroidism Vitamin D deficiency Obesity (BMI 30-39.9) Diabetes type 2, uncontrolled Surgical History Hx of colonoscopy Hx of total thyroidectomy Hx of hysterectomy Family History Father No problems noted. Mother Arthritis Social History Household Members: None Housing: Apartment Alcohol intake: never Patient Tobacco Use Status: Never used Tobacco e-Cigarette/Vaping Use: Never Used Second Hand Smoke Exposure: No service: No Current occupational status: disabled Cognitive needs: No Hearing needs: No Vision needs: No Physical Exam Vital Signs: Last Vital Signs Pulse 62 04/07/24 13:36 BP 130/70 04/07/24 13:36 BMI result Body Mass Index 34.5 Const Other: There is a healed scar status post thyroidectomy Assessment & Plan Assessment & Plan (1) Thyroid cancer: Code(s): C73 - Malignant neoplasm of thyroid gland Category: Medical Plan: Status post total thyroidectomy with radioactive iodine therapy. Currently replaced on levothyroxine 137 mcgQD. Appears to be clinically euthyroid. Does have detectable thyroglobulin in past but thyroglobulin has been stable recent neck ultrasound showed no abnormal lymph nodes. Plan is to stress compliance with the levothyroxine and once resumed 137 mcg, recheck TSH and free T4 as well as thyroglobulin in 6 weeks' time and adjust levothyroxine accordingly. Will have patient follow up with Dr. Guo an hand stamper in her practice with expertise in thyroid cancer and neck ultrasound Orders: Orders Free T4 (Free Thyroxine) 6 Weeks C73 - Malignant neoplasm of thyroid gland Thyroid Stimulating Hormone 6 Weeks C73 - Malignant neoplasm of thyroid gland Thyroglobulin Tumor Marker 6 Weeks C73 - Malignant neoplasm of thyroid gland Medications: Refilled levothyroxine 137 mcg PO DAILY 90 days 90 tabs 5RF levothyroxine 137 mcg PO DAILY 90 days 90 tabs 0RF Coding Level of Care Code Est Pt Level 3 (53699) Diagnoses Thyroid cancer C73
== END 2024-04-07 14:06 | disposition home or self-care (01) ==
PROVIDERS: PCP Internal Medicine; Visit Provider Internal Medicine Endocrinology, Diabetes & Metabolism
DX: C73 Malignant neoplasm of thyroid gland (principal)
CPT/HCPCS: 99213

== ENCOUNTER → 2024-04-07 13:34 | Outpatient (BNVA) | payer OTHER, SELFPAY | PROVIDERS: PCP Internal Medicine; Visit Provider Internal Medicine Endocrinology, Diabetes & Metabolism | DX: C73 Malignant neoplasm of thyroid gland (principal) | CPT/HCPCS: 99212 ==

== ENCOUNTER 2024-04-14 09:37 | Outpatient (AMB) | payer OTHER, SELFPAY ==
--- NOTE | 2024-04-14 09:39 | MHC.PC.OV ---
Vital Signs 04/14/24 09:40 Height 5 ft 1 in Weight 182 lb BMI 34.4 BP 146/82 H Blood Pressure Location Lt brachial Position Sitting Intake Visit Reasons: 4mo f/u/heart/dm Intake Note: Patient here for a 4 month follow up DME supplies request, letter for carpet removal Attractions Associate Required: No Accompanied by: Self / Same As Patient Allergies empagliflozin [From JARDIANCE] Allergy (Intermediate, Verified 04/14/24 10:05) ITCHY/RASH JARDIANCE Allergy (Intermediate, Uncoded 04/14/24 10:05) pruritus Medication List - Last Reconciled 04/14/24 by Jo Montiel MD [air conditioner As directed] amiodarone 200 mg PO DAILY apixaban (Eliquis) 5 mg PO BID bisacodyl (Dulcolax (bisacodyl)) 20 mg (4 x 5 mg) PO ONCE 1 day blood pressure test kit-large As directed blood sugar diagnostic ([employer] Ultra Test strips) USE TO TEST BLOOD SUGAR FOUR TIMES PER DAY blood-glucose meter ([employer] Ultra2 Meter) As directed test 4 times a day blood-glucose meter,continuous (worldhistoryproject G7 Clinical Administrator) As directed blood-glucose sensor ([employer] G7 Sensor device) As directed change every 10 days cholecalciferol (vitamin D3) (Vitamin D3) 50 mcg PO DAILY diclofenac sodium 1% (Arthritis Pain (diclofenac)) 2 grams topical QID PRN 30 days dulaglutide (Trulicity) 4.5 mg (0.5 mL) subcut QWEEK ferrous sulfate 325 mg PO DAILY 90 days folic acid 1 mg PO DAILY furosemide 20 mg PO DAILY gabapentin 300 mg PO BID incontinence pad, liner, disp Use 1 pad every 6 hours as needed insulin degludec 18 units (0.18 mL) subcut QAM 90 days insulin lispro (Humalog KwikPen (U-100) Insulin) 4 units (0.04 mL) subcut DAILY 90 days lancets (SegundoHogaruch Delica Plus Lancet) USE TO TEST BLOOD SUGAR FOUR TIMES DAILY lancets (FreeStyle Lancets) As directed test 4X a day levothyroxine 137 mcg PO DAILY 90 days lisinopril 10 mg PO DAILY 90 days metformin ER 500 mg PO ONCE 90 days metoprolol succinate ER 100 mg PO DAILY mirtazapine 7.5 mg PO BEDTIME nebulizers As directed pen needle, diabetic (Comfort EZ Pen [place]) 1 ea subcut .4x daily 30 days polyethylene glycol 3350 (Miralax) 238 grams PO ONCE rosuvastatin 40 mg PO DAILY 90 days Ventolin HFA 90 mcg/actuation (albuterol sulfate) 2 puffs inhalation Q6H PRN 30 days NS [wipes flushable As directed] Tobacco use date assessed: 01/11/24 Fall risk assessment: No Falls in past year Last assessed Fall Risk: 04/14/24 Dental Screening Dental Screen Date: 04/14/24 Did you have a dental visit in the last 12 months?: Yes Did you have a dental problem in the last 6 months where you did not have access to dental care?: No Was dental information given to patient?: Patient has dentist HPI HPI Comments History of Present Illness Details This is a 69-year-old female with diabetes mellitus type 2 on long-term current use of insulin, hypertension, atrial fibrillation and history of thyroid cancer that comes today for follow-up on her conditions. Last A1c was elevated and this is follow by Endocrinology as well as thyroid. Blood pressure borderline normal to elevated and will be recheck in 3 weeks by nurse navigator. No chest pain or shortness on breath. Atrial fibrillation is follow by cardiology in which they discontinue amiodarone and Eliquis. Has mild asthma that has been aggravated by her carpet and she will benefit from carpet removal from her housing. As per Endocrinology she needs to weight herself daily due to her diabetes and needs a balance. Also has microcytic anemia and hemoglobin will be order. She denies any active bleeding. [facility] Medical History Asthma Pericardial effusion Pneumonitis Pleural effusion Hypoglycemia unawareness associated with type 2 diabetes mellitus Post-surgical hypothyroidism senior care (current) use of insulin Postsurgical hypothyroidism Thyroid cancer Dyslipidemia Essential hypertension Hyperparathyroidism Vitamin D deficiency Obesity (BMI 30-39.9) Diabetes type 2, uncontrolled Surgical History Hx of colonoscopy Hx of total thyroidectomy Hx of hysterectomy Family History Father No problems noted. Mother Arthritis Social History Household Members: None Housing: Apartment Alcohol intake: never Patient Tobacco Use Status: Never used Tobacco e-Cigarette/Vaping Use: Never Used Second Hand Smoke Exposure: No service: No Current occupational status: disabled Cognitive needs: No Hearing needs: No Vision needs: No Questionnaire Thrive Questionnaire Date Thrive assessed: 07/09/23 DIVINA-7 AMB Questionnaire DIVINA-7 Date DIVINA - 7 assessed: 07/09/23 Source: Developed by Drs. Kofi Arrington, Tracy Rowe, Al Kulkarni and colleagues, with an educational bobby from [employer]. Review of Systems Const All systems reviewed & are unremarkable except as noted in HPI and below Card Denies chest pain at rest, Denies chest pain with activity, Denies edema, Denies irregular heart rhythm, Denies claudication, Denies dyspnea, Denies dyspnea on exertion, Denies orthopnea, Denies paroxysmal nocturnal dyspnea and Denies slow heart rate Resp Denies cough, Denies dyspnea and Denies dyspnea on exertion GI Denies abdominal pain, Denies change in bowel habits, Denies excessive flatus, Denies nausea and Denies vomiting Physical exam (Primary Care) Vital Signs: Last Vital Signs BP 146/82 H 04/14/24 09:40 Next steps: Recheck blood pressure in 3 weeks by nurse navigator. BMI result Body Mass Index 34.4 BMI Assessment/Plan discussion: High BMI High, discussed plan: lifestyle, weight reduction, dietary and physical activity Tobacco/Smoking Status: Tobacco use Status Tobacco use date assessed 01/11/24 04/14/24 09:45 Patient Tobacco Use Status Never used Tobacco 04/14/24 09:45 e-Cigarette/Vaping Use Never Used 04/14/24 09:45 Thrive Assessment: Date of Thrive Assessment Date Thrive assessed 07/09/23 04/14/24 09:45 Resp Effort & Inspection: normal respiratory effort Auscultation: clear to auscultation bilaterally Cardio Jugular venous distension: no JVD Rate: regular rate Rhythm: regular rhythm Heart sounds: S1 normal heart sound present and S2 normal heart sound present Extrem General: Yes full ROM Office Procedures Flu Questionnaire Does the patient have a severe egg allergy?: No Immunizations Fluarix Triv [id number] (PF) 45 mcg (15 mcg x 3)/0.5 mL IM syringe Performing Provider: Jo Montiel MD Performing Location: [facility] Documented (not given) by: LATASHA Craig on 04/14/24 09:46 Reason Not Given: Patient Refused Coding Level of Care Code Est Pt Level 4 (79601) Complex EM visit Add On G2211 Diagnoses Diabetes mellitus, with long-term current use of insulin E11.9; Z79.4 Paroxysmal atrial fibrillation I48.0 Atrial fibrillation type: paroxysmal Microcytic anemia D50.9 Thyroid cancer C73 Essential hypertension I10 Time Spent (min) 23 Assessment & Plan Assessment & Plan (1) Diabetes mellitus, with long-term current use of insulin: Code(s): E11.9 - Type 2 diabetes mellitus without complications; Z79.4 - 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 A1c goal is equal or less than 7%. Continue metformin and Trulicity. (2) Atrial fibrillation: Code(s): I48.91 - Unspecified atrial fibrillation Category: Medical Qualifiers: Atrial fibrillation type: paroxysmal Qualified Code(s): I48.0 - Paroxysmal atrial fibrillation Plan: Follow-up with Cardiology. The goal is to have heart rate control. (3) Microcytic anemia: Code(s): D50.9 - Iron deficiency anemia, unspecified Category: Medical Plan: Continue ferrous sulfate. (4) Thyroid cancer: Code(s): C73 - Malignant neoplasm of thyroid gland Category: Medical Plan: Continue levothyroxine. Follow-up with endocrinology. (5) Essential hypertension: Code(s): I10 - Essential (primary) hypertension Category: Medical Plan: Continue lisinopril. Blood pressure goal is equal or less than 130/80. Recheck blood pressure with nurse navigator in 3 weeks. Orders: Orders Complete Blood Count Auto Diff Today D64.9 - Anemia, unspecified Lipid Panel Today E78.5 - Hyperlipidemia, unspecified Microalbumin, Random (w Creat) Today R80.9 - Proteinuria, unspecified Influenza [id number] Immunization Today Z23 - Encounter for immunization IRON PROFILE Today D64.9 - Anemia, unspecified Vitamin D 25-OH Total Today E55.9 - Vitamin D deficiency, unspecified Comprehensive [place]. Panel Fast Today E11.9 - Type 2 diabetes mellitus without complications, Z79.4 - watermelon inspector (current) use of insulin Thyroid Stimulating Hormone Today C73 - Malignant neoplasm of thyroid gland Medications: New [balance] As directed 1 ea 0RF E11.9 - Type 2 diabetes mellitus without complications, Z79.4 - senior care (current) use of insulin
[2024-04-14 09:40] VITALS: BP 146/82; BMI 34.4
== END 2024-04-14 10:18 | disposition home or self-care (01) ==
PROVIDERS: PCP Internal Medicine; Visit Provider Internal Medicine
DX: E11.9 Type 2 diabetes mellitus without complications (principal); Z79.4 Long term (current) use of insulin; I48.0 Paroxysmal atrial fibrillation; C73 Malignant neoplasm of thyroid gland; D50.9 Iron deficiency anemia, unspecified; I10 Essential (primary) hypertension

== ENCOUNTER → 2024-04-14 09:37 | Outpatient (BNVA) | payer OTHER, SELFPAY | PROVIDERS: PCP Internal Medicine; Visit Provider Internal Medicine | DX: E11.9 Type 2 diabetes mellitus without complications (principal); I48.0 Paroxysmal atrial fibrillation; D50.9 Iron deficiency anemia, unspecified; C73 Malignant neoplasm of thyroid gland; I10 Essential (primary) hypertension; Z79.4 Long term (current) use of insulin | CPT/HCPCS: 90471; 99212 ==

== ENCOUNTER 2024-05-01 08:10 | Outpatient (AMB) | payer OTHER, SELFPAY ==
--- NOTE | 2024-05-01 09:05 | MHC.AMDMED ---
Intake Intake Visit Reasons: 60 min-conf Stamping Press Operator Required: Yes Stamping Press Operator Language: Black Off Worker Services: Stamping Press Operator Present Stamping Press Operator Name: Sd Information Interpreted: non-clinical & clinical Accompanied by: Self / Same As Patient Allergies empagliflozin [From JARDIANCE] Allergy (Intermediate, Verified 04/14/24 10:05) ITCHY/RASH JARDIANCE Allergy (Intermediate, Uncoded 04/14/24 10:05) pruritus HPI Comprehensive Diabetes Asmnt Most Recent Diabetes Results: Microalb/Creat Ratio 4.8 ug/mg cr (<30) 11/07/23 Cholesterol 246 mg/dL (<200) H 11/07/23 HDL Cholesterol 43 mg/dL (>40) 11/07/23 Triglycerides 159 mg/dL (<150) H 11/07/23 Creatinine 0.85 mg/dL (0.5-1.4) 11/27/23 Blood Urea Nitrogen 9 mg/dL (9-16) 11/27/23 Sodium 143 mmol/L (135-145) 11/27/23 Potassium 4.3 mmol/L (3.3-5.1) 11/27/23 Chloride 103 mmol/L (96-108) 11/27/23 Carbon Dioxide 30 mmol/L (22-29) H 11/27/23 Calcium 9.0 mg/dL (8.4-10.2) 11/27/23 AST 14 U/L (5-31) 11/27/23 ALT 6 U/L (0-31) 11/27/23 Total Protein 7.1 g/dL (6.5-8.0) 11/27/23 Albumin 3.9 g/dL (3.5-5.0) 11/27/23 PFSH Medical History Asthma Pericardial effusion Pneumonitis Pleural effusion Hypoglycemia unawareness associated with type 2 diabetes mellitus Post-surgical hypothyroidism 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 Mother Arthritis Social History Household Members: None Housing: Apartment Alcohol intake: never Patient Tobacco Use Status: Never used Tobacco e-Cigarette/Vaping Use: Never Used Second Hand Smoke Exposure: No service: No Current occupational status: disabled Cognitive needs: No Hearing needs: No Vision needs: No Assessment & Plan Assessment & Plan (1) Diabetes mellitus, with long-term current use of insulin: Code(s): E11.9 - Type 2 diabetes mellitus without complications; Z79.4 - formation fracturing operator (current) use of insulin Plan: Patient at visit for follow-up blood glucose check, and diabetes education Patient has not received sensors from pharmacy. Called and spoke with pharmacist at today's visit, pharmacist stated that patient is not on automatic refill which is why they did not send sensors out the month of April. Requested pharmacy send patient's Dexcom G7 sensors today. Instructed patient if she wishes to receive sensors on automatic refill she needs to fill out paperwork that will be provided by [place] pharmacy. Sample [id number] inserted by patient at today's visit. Patient has been using glucometer to check glucose levels once a day Patient reports blood sugars below: Date Breakfast/Fasting Pre-Lunch Pre-Supper Bedtime Notes 05/01 220 04/30 176 04/29 130 04/28 214 04/27 04/26 179 04/25 144 Trulicity 4.5 mg weekly Metformin ER 500 mg daily Patient reports she is taking Tresiba 15 units daily Humalog 5 units prior to meals, However, patient reports frequently forgetting Humalog. In addition she does not take Humalog pen with her when she eats away from home. Reviewed with patient action of Humalog in the importance of taking before each meal Humalog can be left at room temperature for 28 days, is not necessary to put it back into the refrigerator Plan/Goal:Patient's last A1c 8.7% in January 2024, patient has upcoming visit with [facility] on 05/27/2024 Patient instructed to carry Humalog pen, to increase compliance with pre meal insulin. Note date on Humalog pen when it is opened so you do not use it beyond 28 days Contact pharmacy if you do not receive sensors within 7 days Portions of this note were created using voice recognition software, please excuse any words or phrases that may have been misinterpreted. Patient Instructions: Plan/meta: ?ltimo A1c del paciente 8,7 % en abby de 2023; el paciente tiene lia pr?xima visita con [facility] el 27/05/2024. Se le indic? al paciente que llevara la pluma Humalog para aumentar el cumplimiento de la insulina antes de las comidas. Anote la fecha en la pluma Humalog cuando se abre para no usarla m?s all? de 28 d?as. Comun?quese con la farmacia si no recibe los sensores dentro de los 7 d?as. Seguimiento con educador en diabetes en 2 meses. Coding Level of Care Code Est Pt Level 1 (28965) Diagnoses Diabetes mellitus, with long-term current use of insulin E11.9; Z79.4
== END 2024-05-01 09:13 | disposition home or self-care (01) ==
LOC: HO.ENCR 08:10
PROVIDERS: PCP Internal Medicine; Visit Provider Registered Nurse Diabetes Educator
DX: E11.9 Type 2 diabetes mellitus without complications (principal); Z79.4 Long term (current) use of insulin

== ENCOUNTER → 2024-05-01 08:10 | Outpatient (BNVA) | payer OTHER, SELFPAY | PROVIDERS: PCP Internal Medicine; Visit Provider Registered Nurse Diabetes Educator | DX: E11.9 Type 2 diabetes mellitus without complications (principal); Z79.4 Long term (current) use of insulin | CPT/HCPCS: 99211 ==

== ENCOUNTER → 2024-05-02 09:35 | Outpatient (BNVA) | payer OTHER, SELFPAY | PROVIDERS: PCP Internal Medicine ==

== ENCOUNTER 2024-05-27 08:28 | Outpatient (AMB) | payer OTHER, SELFPAY ==
--- NOTE | 2024-05-27 08:48 | A.OFFVIS_ITS ---
Vital Signs 05/27/24 08:49 Height 5 ft 1 in Weight 178 lb 9.191 oz BMI 33.7 BP 130/78 Blood Pressure Location Rt brachial Position Sitting Pulse 95 Pulse Source Pulse Oximeter Intake Visit Reasons: DM/CONF Intake Note: Patient presents today to re-establish treatment for Type 2 Diabetes Mellitus: Last Diabetic eye exam was on: 05/2023 Last Podiatry exam was on: Does not see a Customer Resolution Specialist Most recent HbA1c: 8.5%, 05/27/2024 Random Glucose- 200 mg/dL, Today Assembler Equipment Required: Yes Assembler Equipment Language: Maori Information Interpreted: non-clinical & clinical Accompanied by: Self / Same As Patient Allergies empagliflozin [From JARDIANCE] Allergy (Intermediate, Verified 04/14/24 10:05) ITCHY/RASH JARDIANCE Allergy (Intermediate, Uncoded 04/14/24 10:05) pruritus HPI Comments Details: 69 yo female today for follow-up visit for diabetes management She is also followed by Dr. Naidu for thyroid cancer who last saw her in April. She last saw Sabra MEJIA last month and was set up with a Dexcom sensor along with clarity sydni on her phone. A1c in the office today is 8.7%. Dexcom average glucose: 185 14 day continous glucose monitor report reviewed Time in ranges: %15very high (above 250) 38 % high ?(181-250) 46 % in range ?(70-180] 1 % low (69-55) less than 1% ?very low (below 54) 62 Standard Deviation Details [she is having mild hypoglycemia in the 70 range after 03:00 to 06:00 on some days. Her readings are elevated postprandial supper ] She has diabetes type 2 diagnosed 20 years ago. Current medication: Tresiba 18 units am Humalog 5 units tid with meals trulicity 4.5 mg Metformin ER 500mg qd She tried Jardiance and Farxiga but had yeast infection. She is having some diarrhea secondary to the metformin. She has no known retinopathy, nephropathy, CAD, PVD microalbumin 12 11/22 c/o some numbness and diminished sensation On statin last LDL elevated (may be secondary to elevated TSH) History of + CVA Has [facility]D CONSULTING ARCHITECT for assistance Last opth 08/2502/12/18 DEXA scan normal range BMD and T-score in all sites. Fibrosis-4 (Fib-4) Index for liver fibrosis (calculated on most recent lab work 11/22) [1.15 ] points Advanced fibrosis [excluded } Approximate Fibrosis stage Yusuf [ 0-1] *Use with caution in patients <35 or >65 years old, as the score has been shown to be less reliable in these patients. She requests refill of thyroid medication. Due for recheck re: elevated TSH on last check [facility] Medical History (Updated 05/27/24 @ 12:56 by Adenike Moore NP) Hypothyroidism Asthma Pericardial effusion Pneumonitis Pleural effusion Hypoglycemia unawareness associated with type 2 diabetes mellitus Post-surgical hypothyroidism [facility] (current) use of insulin Postsurgical hypothyroidism Thyroid cancer Dyslipidemia Essential hypertension Hyperparathyroidism Vitamin D deficiency Obesity (BMI 30-39.9) Diabetes type 2, uncontrolled Surgical History Hx of colonoscopy Hx of total thyroidectomy Hx of hysterectomy Family History Father No problems noted. Mother Arthritis Social History Household Members: None Housing: Apartment Alcohol intake: never Patient Tobacco Use Status: Never used Tobacco e-Cigarette/Vaping Use: Never Used Second Hand Smoke Exposure: No service: No Current occupational status: disabled Cognitive needs: No Hearing needs: No Vision needs: No Physical Exam Vital Signs: Last Vital Signs Pulse 95 05/27/24 08:49 BP 130/78 05/27/24 08:49 BMI result Body Mass Index 33.7 Const Other: Absence of Cushingoid features. Absence of acromegalic features. Neck exam reveals nl size thyroid about 15 gms. No thyroid nodules palpable. No carotid bruits present. Lungs CTA. Heart S1 S2, Reg R/R. No M/R G. Skin exam reveals absence of vitiligo or acanthosis nigricans. No edema Visual exam of foot performed. No ulcerations or open lesions. No inter digit maceration or fissuring. No onychomycosis, no callouses. Sensation intact to monofilament exam. Vibratory sensation is normal with 128 Hz tuning fork. Results AMB Hemoglobin A1c AMB Hemoglobin A1c 8.5 % Last Edit by LATASHA Zapata on 05/27/24 09:26 Results Reviewed Results Reviewed: Laboratory Last Values Glucose (Clinic) 200 mg/dL (60-115) H 05/27/24 08:55 Hgb A1c (Clinic) 8.5 % (4.0-6.0) H 05/27/24 09:25 Assessment & Plan Assessment & Plan (1) Diabetes type 2, uncontrolled: Code(s): E11.65 - Type 2 diabetes mellitus with hyperglycemia Category: Medical Qualifiers: Glycemic state: with hyperglycemia Qualified Code(s): E11.65 - Type 2 diabetes mellitus with hyperglycemia Plan: Type 2 diabetic on basal bolus insulin with recent GME my of 7.7% and improving numbers. She is having some overnight lows we will decrease Tresiba to 14 units. She was advised to further decreased to 10 if she continues to have nighttime lows she will continue her insulin at 5 units t.i.d. with meals and increase metformin to twice daily. 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 of insulin To insulin lispro (Humalog KwikPen (U-100) Insulin) 5 units (0.05 mL) subcut DAILY 90 days 4.5 mL 4RF E11.9 - Type 2 diabetes mellitus without complications, Z79.4 - termite control service representative (current) use of insulin From metformin ER 500 mg PO ONCE 90 days 90 tabs 4RF E11.65 - Type 2 diabetes mellitus with hyperglycemia To metformin ER 1,000 mg (2 x 500 mg) PO ONCE 90 days 180 tabs 4RF E11.65 - Type 2 diabetes mellitus with hyperglycemia From insulin degludec 18 units (0.18 mL) subcut QAM 90 days 16.2 mL 6RF E11.65 - Type 2 diabetes mellitus with hyperglycemia To insulin degludec 14 units (0.14 mL) subcut QAM 90 days 12.6 mL 6RF E11.65 - Type 2 diabetes mellitus with hyperglycemia Patient Instructions: The patient was counseled to achieve a target A1C of 7% (154 avg). Fasting blood sugars should be 90-130 in the morning and less than 180 two hours after meals. Reviewed the relationship between poor diabetic control and the development of complications. The patient was counseled to always carry a source of sugar and on the rule of 15's: Take 3 glucose tablets and repeat again in 15 minutes if blood sugar is not in normal range. Continue to repeat every 15 minutes until blood sugar is normal. Check your feet daily looking for any signs of infection, ulceration and seek medical attention if this occurs. Break in shoes gradually and do not wear open-toed shoes or walk barefooted. Coding Level of Care Code Est Pt Level 4 (54886) Complex EM visit Add On G2211 Diagnoses Uncontrolled type 2 diabetes mellitus with hyperglycemia E11.65 Glycemic state: with hyperglycemia Time Spent (min) 35 Comment Time spent reviewing labs/provider notes, face to face, chart doc
[2024-05-27 08:49] VITALS: BP 130/78; PULSE 95; BMI 33.7
[2024-05-27 09:00] LABS: Glucose, Whole Blood 200 mg/dL (60-115)
== END 2024-05-27 09:29 | disposition home or self-care (01) ==
PROVIDERS: PCP Internal Medicine; Visit Provider Nurse Practitioner Adult Health
DX: E11.65 Type 2 diabetes mellitus with hyperglycemia (principal)
CPT/HCPCS: 99214; G2211

== ENCOUNTER → 2024-05-27 08:28 | Outpatient (BNVA) | payer OTHER, SELFPAY | PROVIDERS: PCP Internal Medicine; Visit Provider Nurse Practitioner Adult Health | DX: E11.319 Type 2 diabetes mellitus with unspecified diabetic retinopathy without macular edema (principal); E11.51 Type 2 diabetes mellitus with diabetic peripheral angiopathy without gangrene; E11.21 Type 2 diabetes mellitus with diabetic nephropathy; E11.65 Type 2 diabetes mellitus with hyperglycemia; E03.9 Hypothyroidism, unspecified; Z79.4 Long term (current) use of insulin | CPT/HCPCS: 82947; 83036; 99212 ==

== ENCOUNTER 2024-06-23 08:26 | Outpatient (AMB) | payer OTHER, SELFPAY ==
--- NOTE | 2024-06-23 08:31 | A.OFFVIS_ITS ---
Vital Signs 3 06/23/24 08:32 Height 5 ft 1 in Weight 176 lb 9.444 oz BMI 33.4 BP 122/66 Blood Pressure Location Lt brachial Position Sitting Pulse 56 Pulse Source Pulse Oximeter Intake Visit Reasons: Thyroid cancer Intake Note: Patient present today for Thyroid cancer office visit. Decorating Machine Operator Required: Yes Decorating Machine Operator Language: C 40A Crew Chief Services: Decorating Machine Operator Present Decorating Machine Operator Name: Chiqui [id number] Information Interpreted: non-clinical & clinical Accompanied by: Self / Same As Patient Allergies empagliflozin [From JARDIANCE] Allergy (Intermediate, Verified 06/23/24 08:36) ITCHY/RASH JARDIANCE Allergy (Intermediate, Uncoded 06/23/24 08:36) pruritus Medication List - Last Reconciled 06/23/24 by Madhuri Guo MD [air conditioner As directed] [balance As directed] bisacodyl (Dulcolax (bisacodyl)) 20 mg (4 x 5 mg) PO ONCE 1 day blood pressure test kit-large As directed blood sugar diagnostic ([employer] Ultra Test strips) USE TO TEST BLOOD SUGAR FOUR TIMES PER DAY blood-glucose meter ([employer] Ultra2 Meter) As directed test 4 times a day blood-glucose meter,continuous ([employer] G7 Biological Sciences Instructor) As directed blood-glucose sensor ([employer] G7 Sensor device) As directed change every 10 days cholecalciferol (vitamin D3) (Vitamin D3) 50 mcg PO DAILY diclofenac sodium 1% (Arthritis Pain (diclofenac)) 2 grams topical QID PRN 30 days dulaglutide (Trulicity) 4.5 mg (0.5 mL) subcut QWEEK ferrous sulfate 325 mg PO DAILY 90 days folic acid 1 mg PO DAILY furosemide 20 mg PO DAILY gabapentin 300 mg PO BID incontinence pad, liner, disp Use 1 pad every 6 hours as needed insulin degludec 14 units (0.14 mL) subcut QAM 90 days insulin lispro (Humalog KwikPen (U-100) Insulin) 5 units (0.05 mL) subcut DAILY 90 days lancets (iGlueuch Delica Plus Lancet) USE TO TEST BLOOD SUGAR FOUR TIMES DAILY lancets (FreeStyle Lancets) As directed test 4X a day levothyroxine 137 mcg PO DAILY 90 days lisinopril 10 mg PO DAILY 90 days metformin ER 1,000 mg (2 x 500 mg) PO ONCE 90 days metoprolol succinate ER 100 mg PO DAILY mirtazapine 7.5 mg PO BEDTIME nebulizers As directed pen needle, diabetic (Comfort EZ Pen Mck[place]on) 1 ea subcut .4x daily 30 days polyethylene glycol 3350 (Miralax) 238 grams PO ONCE rosuvastatin 40 mg PO DAILY 90 days Ventolin HFA 90 mcg/actuation (albuterol sulfate) 2 puffs inhalation Q6H PRN 30 days NS [wipes flushable As directed] HPI Comments Details: 69-year-old female coming in today for follow up of papillary thyroid cancer status post total thyroidectomy in May 2017, with Dr. Theron Whalen at [facility], 3.2 cm focus with positive lymphovascular extension, positive perineural extension, positive ETE to soft tissue but not to skeletal muscle, margins free of tumor, 3/4 positive lymph nodes. Unclear AJCC stage but labeled as stage IV A (pT3, N1a, MX), MUSTAPHA inital high risk of recurrence currently, MUSTAPHA excellent response to therapy. She sees Adenike Guajardo NP for diabetes melitus in our office, last visit 05/27/24. History of PTC in detail 05/02/2017: Total thyroidectomy with Dr. Theron Whalen at [facility] to be wet [facility], pathology report showed tumor size 3.2 X 3 X 2.9 cm, PTC classic variant, positive lymphovascular extension, positive perineural extension, positive extrathyroidal extension to soft tissue but not to skeletal muscle, margins free of tumor, lymph nodes examined 09/02 positive for tumor. Left upper parathyroid gland was a hyperplastic and removed. AJCC stage Ivy ?? PT3, N1a, MX. Unclear why it says pT3, should be pT4b?? per description 09/21/2017: Whole-body scan post remnant ablation showed no metastasis, only uptake in the neck. 10/12/2017: Treatment with GALAVIZ 104.7 mCi I 131 09/29/2020: Whole-body scan showed faint focus of radiotracer uptake in the left hypopharyngeal wall. There was no corresponding abnormality in CT images. TSH was 30.16, TG level was 0.6 ng/mL. 04/03/2022: Ultrasound head and neck with multiple normal-appearing lymph nodes. 02/27/2023: Labs TSH 44.9, free T4 0.66, TG level 0.6, TG antibody less than 1 Interval history Most recent labs 11/07/2023 TSH 30.29, consistent with poor adherence to levothyroxine. No thyroglobulin level done. Currenctly taking levothyroxine 137 mcg daily , reports good adherence now. Says missed one dose last week but took two the last week Today reports tiredness not too bothersome. Denies palpitations. Denies tremors. Bowel movements are regular. Lost 8 lbs since April 2024 Denies any new lumps or bumps in neck, no difficulty swallowing, sometimes reports voice hoarseness Physical exam General: sitting comfortably in no acute distress HEENT: normocephalic/atraumatic, EOM intact, moist oral mucosa Neck: supple, symmetrical, no palpble masses or lymphnodes , no dorsocervical or supraclavicular fat pads Cardiac: normal heart sounds Pulm: normal breath sounds B/L, no added breath sounds Abd: not distended, no tenderness Extremities: no edema, no signs of myxedema Laboratory Tests 05/22/18 05/31/18 08/07/18 11:45 09:00 05:13 TSH Free T4 1.84 1.83 1.52 Thyroglobulin Thyroglobulin Antibody 11/11/18 06/11/19 12/11/19 11:00 11:30 09:59 TSH Free T4 1.34 1.30 1.21 Thyroglobulin 0.1 H <0.1 <0.1 Thyroglobulin Antibody <1 <1 <1 05/25/20 09/07/20 09/20/20 10:10 12:52 14:02 TSH 0.40 12.85 H 30.16 H Free T4 1.32 0.48 L 0.51 L Thyroglobulin <0.1 0.6 H Thyroglobulin Antibody <1 <1 11/04/20 04/03/22 04/03/22 12:45 10:45 10:45 TSH 3.62 5.82 H Free T4 1.51 Thyroglobulin 0.1 H Thyroglobulin Antibody <1 <1 06/12/22 02/27/23 11/07/23 09:05 10:02 10:56 TSH 5.65 H 44.90 H 30.29 H Free T4 1.20 0.66 L Thyroglobulin 0.6 L Thyroglobulin Antibody Imaging US SOFT TISSUE HEAD/NECK 04/03/22 CLINICAL INFORMATION: Status post thyroidectomy. History of thyroid cancer. COMPARISON: Ultrasound soft tissue 03/17/2019. TECHNIQUE: Ultrasound of the neck soft tissues is performed with high-frequency gamez-scale imaging and color Doppler. FINDINGS: THYROID BED: Prior thyroidectomy. No residual thyroid tissue demonstrated in the thyroid bed. No cystic or solid nodules demonstrated in the thyroid bed. RIGHT NECK SOFT TISSUES: Scattered architecturally normal nodes are present. The nodes show normal fatty hilus, normal cortical thickness, and no cystic change or calcification. No abnormal color-flow. The largest nodes are as follows: Level 3: 0.6 x 0.6 x 0.5 cm. Normal johnny architecture. Previous 1.0 0.2 x 0.8 cm. Level 3: 0.5 x 0.4 x 0.4 cm. Normal johnny architecture. Not seen previously. Level 3: 0.7 x 0.5 x 0.5 cm. Normal johnny architecture. Not seen previously. Level 5A: 1.0 x 0.3 x 0.6 cm. Normal johnny architecture. Previous 0.6 x 0.3 x 0.3 cm. LEFT NECK SOFT TISSUES: Scattered architecturally normal nodes are present. The nodes show normal fatty hilus, normal cortical thickness, and no cystic change or calcification. No abnormal color-flow. The largest nodes are as follows: Level 1B: 0.5 x 0.3 x 0.5 cm. Normal johnny architecture. Not seen previously. Level 2: 0.4 x 0.3 x 0.8 cm. Normal johnny architecture. Previous 1.3 x 0.6 x 1.3 cm. Level 3: 0.7 x 0.3 x 1.1 cm. Normal johnny architecture. Not seen previously. Level 3: 0.9 x 0.6 x 0.9 cm. Normal johnny architecture. Previous 0.9 x 0.5 x 1.0 cm. Level 3: 0.7 x 0.4 x 0.6. Normal johnny architecture. Not seen previously. Level 5B: 1.5 x 0.5 x 1.0 cm. Normal johnny architecture. Previous 0.4 x 0.2 x 0.5 cm. US/US soft tiss head and/or neck IMPRESSION: 1. Total thyroidectomy with no residual thyroid tissue seen. Multiple benign neck lymph nodes. 2. If clinically indicated, further evaluation of the neck soft tissues and nodes may be performed with CT soft tissue neck with intravenous contrast. 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 Mother Arthritis Social History Household Members: None Housing: Apartment Alcohol intake: never Patient Tobacco Use Status: Never used Tobacco e-Cigarette/Vaping Use: Never Used Second Hand Smoke Exposure: No service: No Current occupational status: disabled Cognitive needs: No Hearing needs: No Vision needs: No Physical Exam Vital Signs: Last Vital Signs Pulse 56 06/23/24 08:32 BP 122/66 06/23/24 08:32 BMI result Body Mass Index 33.4 Assessment & Plan Assessment & Plan (1) Thyroid cancer: Code(s): C73 - Malignant neoplasm of thyroid gland Category: Medical Plan: 69-year-old female coming in today for follow up of papillary thyroid cancer status post total thyroidectomy in May 2017, with Dr. Theron Whalen at [facility], 3.2 cm focus with positive lymphovascular extension, positive perineural extension, positive ETE to soft tissue but not to skeletal muscle, margins free of tumor, 3/4 positive lymph nodes. Unclear AJCC stage but labeled as stage IV A (pT3, N1a, MX), MUSTAPHA inital high risk of recurrence currently, MUSTAPHA excellent response to therapy based on unremarkable US findings ( last us 04/2022) and stimulated Tg of 0.6 and unstimulated Tg of 0.1. Las tset of tumor markers 02/27/2023: Labs TSH 44.9, free T4 0.66, TG level 0.6, TG antibody less than 1, she has had po5or adherence to levotyroxine so TSH elevated, now she says she has had good adherence recently, will repeat labs now with tumor markers. Given MUSTAPHA excellent response to therapy , TSh goal 0.5- 2. Plan : -Continue levothyroxine 137 mcg daily -Goal TSH 0.5-2 - Ordered TSH, free t4 , Tg and Tg Ab - Ordered US neck, fup in 10 weeks to discuss results (2) Hypothyroidism: Code(s): E03.9 - Hypothyroidism, unspecified Category: Medical Qualifiers: Hypothyroidism type: postoperative Qualified Code(s): E89.0 - Postprocedural hypothyroidism Plan: Post surgical hypothyrodism. Poor adherence historically to levothyroxine. Given MUSTAPHA excellent response to therapy , TSh goal 0.5- 2. Plan : -Continue levothyroxine 137 mcg daily -Goal TSH 0.5-2 - Ordered TSH, free t4 Plan I spent 30 minutes in reviewing the record, seeing the patient and documenting in the medical record. Orders: Orders 2 Thyroglobulin Antibodies Today C73 - Malignant neoplasm of thyroid gland, E03.9 - Hypothyroidism, unspecified Thyroglobulin Tumor Marker Today C73 - Malignant neoplasm of thyroid gland, E03.9 - Hypothyroidism, unspecified US soft tiss head and/or neck Today C73 - Malignant neoplasm of thyroid gland Thyroid Stimulating Hormone Today C73 - Malignant neoplasm of thyroid gland, E03.9 - Hypothyroidism, unspecified Thyroglobulin Today C73 - Malignant neoplasm of thyroid gland, E03.9 - Hypothyroidism, unspecified Free T4 (Free Thyroxine) Today C73 - Malignant neoplasm of thyroid gland, E03.9 - Hypothyroidism, unspecified Patient Instructions: Continue levothyroxine 137 mcg daily Do blood work , we will call you with results Do ultrasound of your neck, someone will call you to schedule this I will see you back in 10 weeks to discuss the results of the ultrasound Continuar con levotiroxina 137 mcg al d?a. Haz an?lisis de yosef, te llamaremos con los resultados. Hazte lia ecograf?a de tu antolin, alguien te llamar? para programar esta Nos vemos dentro de 10 semanas para discutir los resultados de la ecograf?a. Coding Level of Care Code Est Pt Level 4 (91098) Complex EM visit Add On G2211 Diagnoses Thyroid cancer C73 Postoperative hypothyroidism E89.0 Hypothyroidism type: postoperative Time Spent (min) 30
[2024-06-23 08:32] VITALS: BP 122/66; PULSE 56; BMI 33.4
== END 2024-06-23 09:08 | disposition home or self-care (01) ==
PROVIDERS: PCP Internal Medicine; Visit Provider Student in an Organized Health Care Education/Training Program
DX: C73 Malignant neoplasm of thyroid gland (principal); E89.0 Postprocedural hypothyroidism
CPT/HCPCS: 99214; G2211

== ENCOUNTER → 2024-06-23 08:26 | Outpatient (BNVA) | payer OTHER, SELFPAY | PROVIDERS: PCP Internal Medicine; Visit Provider Student in an Organized Health Care Education/Training Program | DX: C73 Malignant neoplasm of thyroid gland (principal); E89.0 Postprocedural hypothyroidism | CPT/HCPCS: 99212 ==

== ENCOUNTER 2024-07-09 12:20 | Inpatient (IN) | payer OTHER, SELFPAY ==
[2024-07-09] VITALS (9 sets, daily range): BP systolic 105–124; BP diastolic 36–83; PULSE 120–172; RESP 20–30; TEMP 38.1–38.3; O2SAT 96–100; BMI 33.9
--- NOTE | ~2024-07-09 | XR_ITS ---
CLINICAL HISTORY: Fever Chest Radiograph Comparison: 05/22/18 Findings: Prominent sized heart. Normal mediastinal contours. No pneumothorax. No opacity. No pleural effusion. Normal upper abdomen. No acute fracture. Impression: No acute findings. This document has been electronically signed by: Enid Calderón MD on 07/09/2024 18:51:04
--- NOTE | ~2024-07-09 | CT_ITS ---
EXAMINATION: CT ABDOMEN PELVIS WITH IV CONTRAST HISTORY: mid abd pain COMPARISON: There are no prior studies for comparison. TECHNIQUE: CT scan of the abdomen and pelvis was performed following administration of 85 mL Omnipaque 350 using standard departmental protocol. Coronal and sagittal reformatted images were generated and reviewed. Oral contrast material was not administered at the request of the referring physician. This CT exam was performed with one or more of the following dose reduction techniques: automated exposure control, adjustment of the mA and/or kV according to patient size, use of iterative reconstruction technique. DLP: 680 mGy-cm FINDINGS: LOWER CHEST: The visualized lung bases are clear. There is no pleural effusion. CARDIOVASCULATURE: The heart is enlarged. There is a small pericardial effusion measuring up to 8 mm in thickness. LIVER: The liver is normal in size and contour. No liver mass is identified. The hepatic and portal veins are patent. GALLBLADDER / BILE DUCTS: The gallbladder is unremarkable. There is no intra or extrahepatic biliary ductal dilatation. SPLEEN: The spleen is normal in size. No focal splenic lesion is identified. PANCREAS: The pancreas is unremarkable in appearance. ADRENAL GLANDS: Within normal limits. KIDNEYS/RETROPERITONEUM: No renal calculi are identified. There is no hydronephrosis. There is a 2.1 cm cyst at the lower pole of the left kidney. A smaller cyst is noted of the upper pole. LYMPH NODES: No abdominal or pelvic lymphadenopathy. VASCULATURE: The abdominal aorta is normal in caliber. MESENTERY/PERITONEUM: No free fluid. No masses. There is no free intraperitoneal gas. STOMACH: The stomach is collapsed, limiting evaluation. SMALL BOWEL: The small bowel is normal in caliber. COLON: The colon is unremarkable. APPENDIX: Normal. URINARY BLADDER/PELVIC ORGANS: The urinary bladder is unremarkable. The patient is status post hysterectomy. BONES / SOFT TISSUES: There is bilateral spondylolysis of L5 with grade I spondylolisthesis of L5 on S1. There is severe degenerative disc disease at this level. CT/CT abdomen pelvis w IV con IMPRESSION: Cardiomegaly and small pericardial effusion. No inflammatory process is identified in the abdomen or pelvis. Electronically signed by: Kofi Ohara MD 07/09/2024 03:06 PM [facility]
--- NOTE | 2024-07-09 12:36 | ECG_ITS ---
Test Reason : SOB Blood Pressure : */* mmHG Vent. Rate : 125 BPM Atrial Rate : 267 BPM P-R Int : * ms QRS Dur : 126 ms QT Int : 350 ms P-R-T Axes : * -77 -7 degrees QTcB Int : 505 ms Atrial flutter with variable A-V block Left axis deviation Right bundle branch block Inferior infarct , age undetermined Abnormal ECG When compared with ECG of 09-Jul-2024 12:37, No significant changes seen Referred By: Alyssa Sena Electronically Signed By: DEMETRIS MIX
--- NOTE | 2024-07-09 12:37 | ECG_ITS ---
Test Reason : tachy Blood Pressure : */* mmHG Vent. Rate : 154 BPM Atrial Rate : 133 BPM P-R Int : * ms QRS Dur : 118 ms QT Int : 322 ms P-R-T Axes : * -89 -9 degrees QTcB Int : 515 ms Rhythm shows atrial flutter with variable block Left axis deviation Right bundle branch block Abnormal ECG When compared with ECG of 19-Sep-2018 10:05, rhthm change Referred By: Alyssa Sena Electronically Signed By: DEMETRIS MIX
[2024-07-09 12:46] LABS: Glucose, Whole Blood 212 mg/dL (60-115)
[2024-07-09] MEDS: Acetaminophen 1,000 MG/100 ML PIGGYBACK 400 MG IV (12:49)
[2024-07-09] MEDS: 0.9 % Sodium Chloride 1,000 ML 999 ML IV (12:49)
[2024-07-09 12:56] LABS: Basophils Percent Auto 0.2 % (0-2); Eosinophils Percent Auto 0.3 % (0-4); Hematocrit 40.6 % (37.0-47.0); Hemoglobin 12.2 g/dl (12.0-16.0); Imm Gran Abs Auto 0.06 X10*3/uL (0.00-0.03); Imm Gran Pct Auto 0.4 % (0.0-0.4); Lymphocytes Absolute Auto 0.8 X10*3/uL (1.2-4.9); Lymphocytes Percent Auto 6.1 % (20-40); MANUAL DIFF FLAG SCAN; Mean Corpuscular Hemoglobin 18.9 pg (27.0-33.0); Monocytes Absolute Auto 0.3 X10*3/uL (0.1-1.2); Monocytes Percent Auto 2.2 % (2-11); Neutrophils Absolute Auto 12.2 x10*3/uL (2.0-8.3); Neutrophils Percent Auto 90.8 % (45-73); Platelet Count 323 X10*3/uL (160-400); Red Blood Count 6.46 X10*6/uL (4.20-5.50); Red Cell Distribution Width 16.4 % (11.0-16.0); SCAN SMEAR FLAG 1; White Blood Count 13.4 X10*3/uL (4.8-10.8)
[2024-07-09 13:00] LABS: Mean Corpuscular Volume 62.8 fL (80.0-98.0)
[2024-07-09] MEDS: Metoprolol Tartrate 5 MG/5 ML VIAL IVPUSH ×3 (13:00→15:17)
[2024-07-09 13:02] LABS: INTERNATIONAL NORM RATIO 1.1 (0.9-1.1); Prothrombin Time 13.2 SEC (10.9-12.4)
[2024-07-09 13:18] LABS: Troponin-I High Sensitivity 19.3 ng/L (<3.5-17.0)
[2024-07-09 13:24] LABS: SLIDE REVIEW VERIFIED
--- NOTE | 2024-07-09 13:28 | ED.NAVMDI ---
HPI - Nausea/Vomiting/Diarrhea General Chief complaint: Nausea/Vomiting/Diarrhea Stated complaint: ABD PAIN,N/V,FEVER,WEAK,RAPID AFIB 100-160 PER EMS Time Seen by Provider: 07/09/24 12:27 Source: patient and interpreter deaf Mode of arrival: EMS History of Present Illness ED Provider: Nathen HPI Narrative: 69-year-old female, diabetic, arrives via EMS for 2 days of significant nausea, vomiting, diarrhea and mid abdominal pain has a positive intra-abdominal surgery history of hysterectomy, reports chills but no fevers, denies any sick contacts, had a syncopal episode in the bathroom this morning and has been unable to take medication today. Related Data Home Medications ?Medication ?Instructions ?Recorded ?Confirmed furosemide 20 mg tablet 20 mg PO DAILY 11/30/21 06/23/24 metoprolol succinate 100 mg 100 mg PO DAILY 11/30/21 06/23/24 tablet,extended release 24 hr gabapentin 100 mg capsule 300 mg PO BID 05/10/22 06/23/24 mirtazapine 7.5 mg tablet 7.5 mg PO BEDTIME 11/07/23 06/23/24 Previous Rx's ?Medication ?Instructions ?Recorded lancets 33 gauge (OneTouch Delica #100 ea 01/22/23 Plus Lancet) ferrous sulfate 325 mg (65 mg 325 mg PO DAILY 90 days #90 tabs 03/01/23 iron) tablet folic acid 1 mg tablet 1 mg PO DAILY #90 tabs 04/01/23 blood pressure test kit-large #1 ea 04/23/23 bisacodyl 5 mg tablet,delayed 20 mg (4 x 5 mg) PO ONCE 1 day #4 06/13/23 release (Dulcolax (bisacodyl)) tabs polyethylene glycol 3350 17 238 g PO ONCE #238 grams 06/13/23 gram/dose oral powder (Miralax) diclofenac sodium 1 % topical gel 2 g topical QID PRN pain 30 days 07/09/23 (Arthritis Pain (diclofenac)) #100 grams Ventolin HFA 90 mcg/actuation 2 puff inhalation Q6H PRN 10/08/23 aerosol inhaler (albuterol sulfate) shortness of breath or wheezing 30 days #8 grams pen needle, diabetic 32 gauge x 1 ea subcut .4x daily 30 days #120 04/08/24 5/32 (Comfort EZ Pen [place]) ea rosuvastatin 40 mg tablet 40 mg PO DAILY 90 days #90 tabs 11/07/23 blood-glucose meter (OneTouch #1 ea 11/19/23 Ultra2 Meter) air conditioner #1 ea 01/13/24 incontinence pad, liner, disp #120 ea 01/13/24 wipes flushable #240 ea 01/13/24 lisinopril 10 mg tablet 10 mg PO DAILY 90 days #90 tabs 01/17/24 blood-glucose meter,continuous #1 ea 02/19/24 (Dexcom G7 Gyroscopic Instrument Mechanic) dulaglutide 4.5 mg/0.5 mL 4.5 mg (0.5 mL) subcut QWEEK #2 mL 03/12/24 subcutaneous pen injector (TrulicResearchGate) lancets 28 gauge (FreeStyle #100 ea 03/12/24 Lancets) blood-glucose sensor (Dexcom G7 #3 ea 03/16/24 Sensor device) balance #1 ea 04/14/24 insulin degludec 100 unit/mL (3 14 unit (0.14 mL) subcut QAM 90 05/27/24 mL) subcutaneous pen days #12.6 mL insulin lispro 100 unit/mL 5 unit (0.05 mL) subcut DAILY 90 05/27/24 subcutaneous pen (Humalog KwikPen days #4.5 mL (U-100) Insulin) metformin 500 mg tablet,extended 1,000 mg (2 x 500 mg) PO ONCE 90 05/27/24 release 24 hr days #180 tabs cholecalciferol (vitamin D3) 50 50 mcg PO DAILY #28 caps 06/23/24 mcg (2,000 unit) capsule (Vitamin D3) levothyroxine 137 mcg tablet 137 mcg PO DAILY 90 days #90 tabs 06/23/24 blood sugar diagnostic (OneTouch #100 ea 07/01/24 Ultra Test strips) nebulizers #1 ea 07/02/24 Allergies Allergy/AdvReac Type Severity Reaction Status Date / Time empagliflozin Allergy Intermediate ITCHY/RASH Verified 07/09/24 12:45 [From JARDIANCE] JARDIANCE Allergy Intermediate pruritus Uncoded 07/09/24 12:45 Review of Systems Review of Systems: Pertinent positives and negatives as stated in HPI PMFSH Past Medical History Source: nursing notes reviewed Medical History Hypothyroidism Asthma Pericardial effusion Pneumonitis Pleural effusion Hypoglycemia unawareness associated with type 2 diabetes mellitus Post-surgical hypothyroidism FDC (current) use of insulin Postsurgical hypothyroidism Thyroid cancer Dyslipidemia Essential hypertension Hyperparathyroidism Vitamin D deficiency Obesity (BMI 30-39.9) Diabetes type 2, uncontrolled Surgical History Hx of colonoscopy Hx of total thyroidectomy Hx of hysterectomy Family History Family History Father No problems noted. Mother Arthritis Social History Social History Household Members: None Housing: Apartment Alcohol intake: never Patient Tobacco Use Status: Never used Tobacco Smoked in Last 30 Days: No e-Cigarette/Vaping Use: Never Used Second Hand Smoke Exposure: No Use of substances other than those prescribed or required for medical reasons: No Advance Directives: No Do you have a plan to hurt others: No Plan service: No Current occupational status: disabled Cognitive needs: No Hearing needs: No Vision needs: No Physical Exam Vital Signs: Vital Signs: Last Vital Signs Temp 100.6 F H 07/09/24 14:21 Pulse 149 H 07/09/24 15:15 Resp 21 H 07/09/24 15:15 BP 108/83 07/09/24 15:15 Pulse Ox 96 07/09/24 15:15 O2 Del Method Room Air 07/09/24 15:15 O2 Flow Rate 2 07/09/24 12:52 BMI result Body Mass Index 33.9 VITAL SIGNS: Reviewed. GENERAL: Well developed, well nourished, in no acute distress. HEAD: Normocephalic/atraumatic EYES: PERRLA, EOMI EARS: Ext canals without abnormality NOSE: Nares patent bilateral OROPHARYNX: no oral lesions noted, posterior pharynx clear NECK: Supple, no adenopathy LUNGS: Normal breath sounds. No adventitious sounds or accessory muscle use. SpO2<100> CARDIOVASCULAR: Tachycardic irregular rate and rhythm without noted murmurs ABDOMEN: Soft, mid abdominal discomfort without rebound, non-distended with bowel sounds. MUSCULOSKELETAL: No tenderness, deformities, or effusions noted on gross inspection. EXTREMITIES: No cyanosis, clubbing or edema. SKIN: Inspection of the skin reveals no rashes NEUROLOGIC: Alert and oriented x 4. Strength and sensation to light touch were grossly intact x 4. Medications Administered Discontinued Medications Generic Name Dose Route Start Last Admin Trade Name Freq PRN Reason Stop Dose Admin Diltiazem HCl 5 mg 07/09/24 13:38 07/09/24 13:44 Diltiazem Hcl 50 Mg/10 Ml Vial IVPUSH 07/09/24 13:39 5 mg STAT STA Administration Sodium Chloride 1,000 mls @ 999 mls/hr 07/09/24 12:45 07/09/24 15:16 Ns IV 07/09/24 13:45 Infused .Q1H1M RENU Infusion Acetaminophen 1,000 mg in 100 mls @ 400 mls/hr 07/09/24 12:47 07/09/24 13:17 Ofirmev IV 07/09/24 13:01 Infused ONCE ONE Infusion Piperacillin Sod/Tazobactam 50 mls @ 100 mls/hr 07/09/24 13:21 07/09/24 15:16 Sod 3.375 gm/ Sodium Chloride IV 07/09/24 13:50 Infused ONCE ONE Infusion Iohexol 100 ml 07/09/24 14:50 07/09/24 14:51 Iohexol 350 Mg/Ml 100 Ml Infus..Btl IV 07/09/24 14:51 85 ml ONCE ONE Administration Metoprolol Tartrate 5 mg 07/09/24 12:56 07/09/24 13:00 Metoprolol Tartrate 5 Mg/5 Ml Vial IVPUSH 07/09/24 12:57 5 mg ONCE ONE Administration Protocol Metoprolol Tartrate 5 mg 07/09/24 13:39 07/09/24 13:45 Metoprolol Tartrate 5 Mg/5 Ml Vial IVPUSH 07/09/24 13:40 5 mg ONCE ONE Administration Protocol Metoprolol Tartrate 5 mg 07/09/24 14:48 07/09/24 15:17 Metoprolol Tartrate 5 Mg/5 Ml Vial IVPUSH 07/09/24 14:49 5 mg ONCE ONE Administration Protocol Medical Decision Making Medical Decision Making MDM Narrative: 69-year-old female with history and clinical presentation, DD DX: Patient has atrial fibrillation/flutter with RVR, she was noted to have a rate up into the 200s which then gradually improved, she is receiving fluids, she will receive 1 g of Tylenol, she received 5 mg of Lopressor, blood pressure is otherwise stable. INTERVENTION: Have been intervening throughout with lopressor fluids and analgesics, antibiotics, IV fluids 1300: Will rule out infectious etiology such as diverticulitis, there is a possibility of obstruction, patient was noted to be febrile. I reviewed and interpreted all investigations and there is a noted infectious leukocytosis, there is no anemia or thrombocytopenia. Coagulation studies are within normal limits. There is no demonstrate RUBI/electrolyte or liver enzyme derangements. I sensitivity troponin is noted to be elevated and will repeat though feel that this is associated with demand given patient's persistent heart rate. Urinalysis negative for UTI. 1500: My interpretation of the CT scan is there appears to be a small bowel obstruction, official read is pending. 1506: Radiology is reading negative findings within the abdomen but reports pericardial effusion 1543:I corroborated CT scan findings with Dr. Moise because there did appear to be some dilated bowel loops but he confirms that in fact does not appear to be consistent with an obstruction, I also completed at bedside ultrasound and do not appreciate any pericardial effusion, patient does appear much better and will admit for persistent atrial fibrillation/flutter with RVR. Urinalysis is negative for UTI and lower lung bases on CT of the abdomen pelvis were negative and patient had no respiratory symptoms so leukocytosis may be consistent with reactive response to underlying gastroenteritis. Will discuss the case with inpatient hospitalist and place patient on Cardizem drip. Differential Diagnosis Differential Diagnoses: The differential diagnosis associated with the presentation includes See above Admission/Observation Consideration of admission/observation: Escalation of care including admission/observation considered Patient meets criteria for inpatient level of care for atrial fibrillation/flutter with RVR. Consult Healthcare Provider Management of the patient was discussed with: Hospitalist and [place]inder[place] Chief See above Lab Data MDM Lab Attestation statement: I reviewed the patient's lab results. See above 07/09/24 12:45 07/09/24 13:19 Labs: Lab Results 07/09/24 07/09/24 07/09/24 Range/Units 12:42 12:45 13:19 WBC 13.4 H (4.8-10.8) X10*3/uL RBC 6.46 H (4.20-5.50) X10*6/uL Hgb 12.2 (12.0-16.0) g/dl Hct 40.6 (37.0-47.0) % MCV 62.8 L (80.0-98.0) fL MCH 18.9 L (27.0-33.0) pg MCHC 30.0 L (31.0-35.0) g/dl RDW 16.4 H (11.0-16.0) % Plt Count 323 (160-400) X10*3/uL MPV Not Reportable Immature Gran % (Auto) 0.4 (0.0-0.4) % Neut % (Auto) 90.8 H (45-73) % Lymph % (Auto) 6.1 L (20-40) % [place] % (Auto) 2.2 (2-11) % Eos % (Auto) 0.3 (0-4) % Baso % (Auto) 0.2 (0-2) % Lymph # (Auto) 0.8 L (1.2-4.9) X10*3/uL [place] # (Auto) 0.3 (0.1-1.2) X10*3/uL Eos # (Auto) 0.0 (0.0-0.4) X10*3/uL Baso # (Auto) 0.0 (0.0-0.2) X10*3/uL Abs Immat Gran (auto) 0.06 H (0.00-0.03) X10*3/uL Absolute Neuts (auto) 12.2 H (2.0-8.3) x10*3/uL Absolute Nucleated RBC 0.000 (0.0-0.012) X10*3/uL Nucleated RBC % (auto) 0.0 (0.0-0.2) /100WBC Smear Tech's Comments VERIFIED PT 13.2 H (10.9-12.4) SEC INR 1.1 (0.9-1.1) Sodium 143 (135-145) mmol/L Potassium 4.6 D (3.3-5.1) mmol/L Chloride 108 (96-108) mmol/L Carbon Dioxide 24 (22-29) mmol/L Anion Gap 16 (12-20) BUN 14 (9-16) mg/dL Creatinine 0.86 (0.5-1.4) mg/dL Estim Creat Clear Calc 61.3 Estimated GFR > 60 POC Glucose 212 H (60-115) mg/dL Random Glucose 211 H (60-115) mg/dL Lactic Acid 2.7 H* (0.5-2.0) mmol/L Calcium 8.5 (8.4-10.2) mg/dL Total Bilirubin 0.5 (0.0-1.0) mg/dL AST 16 (5-31) U/L ALT < 6 (0-31) U/L Alkaline Phosphatase 90 (39-117) U/L Troponin I High Sens 19.3 H (<3.5-17.0) ng/L Total Protein 6.4 L (6.5-8.0) g/dL Albumin 3.4 L (3.5-5.0) g/dL Urine Color Urine Appearance Urine pH (5.0-9.0) Ur Specific [place] (1.005-1.025) Urine Protein (Neg-Trace) mg/dL Urine Glucose (UA) (Negative) mg/dL Urine Ketones (Negative) mg/dL Urine Blood (Negative) Urine Nitrite (Negative) Ur Leukocyte Esterase (Negative) 07/09/24 Range/Units 15:22 WBC (4.8-10.8) X10*3/uL RBC (4.20-5.50) X10*6/uL Hgb (12.0-16.0) g/dl Hct (37.0-47.0) % MCV (80.0-98.0) fL MCH (27.0-33.0) pg MCHC (31.0-35.0) g/dl RDW (11.0-16.0) % Plt Count (160-400) X10*3/uL MPV Immature Gran % (Auto) (0.0-0.4) % Neut % (Auto) (45-73) % Lymph % (Auto) (20-40) % [place] % (Auto) (2-11) % Eos % (Auto) (0-4) % Baso % (Auto) (0-2) % Lymph # (Auto) (1.2-4.9) X10*3/uL [place] # (Auto) (0.1-1.2) X10*3/uL Eos # (Auto) (0.0-0.4) X10*3/uL Baso # (Auto) (0.0-0.2) X10*3/uL Abs Immat Gran (auto) (0.00-0.03) X10*3/uL Absolute Neuts (auto) (2.0-8.3) x10*3/uL Absolute Nucleated RBC (0.0-0.012) X10*3/uL Nucleated RBC % (auto) (0.0-0.2) /100WBC Smear Tech's Comments PT (10.9-12.4) SEC INR (0.9-1.1) Sodium (135-145) mmol/L Potassium (3.3-5.1) mmol/L Chloride (96-108) mmol/L Carbon Dioxide (22-29) mmol/L Anion Gap (12-20) BUN (9-16) mg/dL Creatinine (0.5-1.4) mg/dL Estim Creat Clear Calc Estimated GFR POC Glucose (60-115) mg/dL Random Glucose (60-115) mg/dL Lactic Acid (0.5-2.0) mmol/L Calcium (8.4-10.2) mg/dL Total Bilirubin (0.0-1.0) mg/dL AST (5-31) U/L ALT (0-31) U/L Alkaline Phosphatase (39-117) U/L Troponin I High Sens (<3.5-17.0) ng/L Total Protein (6.5-8.0) g/dL Albumin (3.5-5.0) g/dL Urine Color Yellow Urine Appearance Clear Urine pH 6.5 (5.0-9.0) Ur Specific [place] >= 1.030 H (1.005-1.025) Urine Protein Negative (Neg-Trace) mg/dL Urine Glucose (UA) 100 H (Negative) mg/dL Urine Ketones 15 (Negative) mg/dL Urine Blood Negative (Negative) Urine Nitrite Negative (Negative) Ur Leukocyte Esterase Negative (Negative) Independent Interpretation I performed an independent interpretation of an: EKG and CT Scan Interpretation: See above Radiology Impression Discussion of test interpretation with radiology: I have reviewed the radiologist's reading. Radiologist Impression: See above External Record Review External record reviewed: Prior outpatient labs and Prior outpatient radiology Critical Care Time Critical Care Time Critical Care Time: Yes Total Critical Care Time: 60 Attestation: I personally attest to this time spent taking care of the patient. Discharge Plan Discharge Clinical Impression: Atrial fibrillation with RVR, Gastroenteritis Patient Disposition: Admitted As Inpatient Print Language: Nigerien
[2024-07-09 13:41] LABS: Alanine Aminotransferase < 6 U/L (0-31); Albumin Level 3.4 g/dL (3.5-5.0); Alkaline Phosphatase 90 U/L (39-117); Anion Gap 16 (12-20); Aspartate Amino Transferase 16 U/L (5-31); Bilirubin Total 0.5 mg/dL (0.0-1.0); Blood Urea Nitrogen 14 mg/dL (9-16); Calcium 8.5 mg/dL (8.4-10.2); Carbon Dioxide 24 mmol/L (22-29); Chloride 108 mmol/L (96-108); Creatinine Clr Calc Pharmacy 61.3; Estimated Glomerular Filt Rate > 60; Glucose Random 211 mg/dL (60-115); Potassium 4.6 mmol/L (3.3-5.1); Sodium 143 mmol/L (135-145); Total Protein 6.4 g/dL (6.5-8.0)
[2024-07-09] MEDS: dilTIAZem HCL 50 MG/10 ML VIAL IVPUSH (13:44)
[2024-07-09] MEDS: Piperacillin Sodium/Tazobactam 3.375 GM in 0.9 % Sodium Chloride 50 ML IV (13:44)
[2024-07-09 14:49] LABS: Reflex Lactate? Lactic Acid Added
[2024-07-09] MEDS: iohexoL 350 MG/ML 100 ML INFUS..BTL IV (14:51)
[2024-07-09 15:32] LABS: Appearance Urine Clear; Color Urine Yellow; Glucose Urine UA 100 mg/dL (Negative); Leukocyte Esterase Urine Negative (Negative); Nitrite Urine Negative (Negative); PH 6.5 (5.0-9.0); Specific Gravity - Urine >= 1.030 (1.005-1.025); Urine Blood Negative (Negative); Urine Ketones 15 mg/dL (Negative); Urine Protein Negative (Neg-Trace)
[2024-07-09 15:54] LABS: ~Lactic Acid-LAB USE ONLY 1.8 mmol/L (0.5-2.0)
[2024-07-09] MEDS: dilTIAZem HCL 125 MG in 0.9 % Sodium Chloride 100 ML 10 MG IVCONT (16:08)
--- NOTE | 2024-07-09 16:36 | PM.IMHP ---
History of Present Illness Date of Service: 07/09/24 Attending physician on admission: Alka Wilson Chief Complaint: N/V/D and abd pain Pt is a 69-year-old female with a PMH significant for paroxysmal AFib/flutter s/p ablation 05/06/21 on Eliquis, asthma, HTN, HLD, insulin-dependent type 2 diabetes, peripheral neuropathy, hx of DVT, and thyroid carcinoma s/p thyroidectomy with resultant hypothyroidism who presents to the ED with?after syncopal episode at home. Pt reports yesterday experienced multiple episodes of nausea, vomiting, and diarrhea, as well as associated diffuse abdominal pain. This morning pt reports was brushing her hair in the bathroom when she felt lightheaded and then everything went ?black?. Daughter was by her side and able to catch her and hold her up before she fell to the floor. Pt reports has had at least 4 similar episodes before where she has been seen and evaluated at [facility]. Pt also reports has had 3 previous cardioversions with last one completed 3 years ago, again at [facility]. Denies chest pain/pressure, palpitations. Denies fever or chills. No shortness a breath or difficulty breathing. Denies increasing lower leg edema. Review of [facility] records indicates pt previously on Lovenox in 2020 for anticoagulation due to DVT. Had EF of approximately 35% and underwent catheter ablation of all 4 pulmonary veins, left atrial posterior wall, SVC, and CTI due to history of a flutter. Was maintained on amiodarone for approximately 1 year after procedure. Cardiology note from 04/24/2024 indicates pt had no recurrence of AFib/flutter since ablation. In the ED pt was febrile up to 1 1, tachycardic up to 172, tachypneic up to 30, with soft BP as low as 105/36. Labs were significant for leukocytosis of 13.4, POC 212, lactic acid 2.7 with repeat 1.8, and initial troponin 19.3. Stable H&H. No significant electrolyte abnormalities. Renal and hepatic function baseline. UA negative for UTI. CT of abdomen and pelvis found cardiomegaly and small pericardial effusion, but no inflammatory process or acute abdomen. EKG demonstrated AFib with RVR of 125 and RBBB. Pt was treated with IVF, acetaminophen, Zosyn, metoprolol 5 mg IV x3, diltiazem 5 mg IV, and started on Cardizem drip. Pt will be admitted to the hospital for for treatment and further evaluation of AFib with RVR requiring diltiazem drip. 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 Mother Arthritis Surgical History Hx of colonoscopy Hx of total thyroidectomy Hx of hysterectomy Social History Household Members: None Housing: Apartment Alcohol intake: never Patient Tobacco Use Status: Never used Tobacco Smoked in Last 30 Days: No e-Cigarette/Vaping Use: Never Used Second Hand Smoke Exposure: No Use of substances other than those prescribed or required for medical reasons: No Advance Directives: No Do you have a plan to hurt others: No Plan Nutrition Risks: No Nutritional Risk service: No Current occupational status: disabled Cognitive needs: No Hearing needs: No Vision needs: No Meds Allergies Allergy/AdvReac Type Severity Reaction Status Date / Time empagliflozin Allergy Intermediate ITCHY/RASH Verified 07/09/24 12:45 [From JARDIANCE] JARDIANCE Allergy Intermediate pruritus Uncoded 07/09/24 12:45 Active Medications: Current Medications Diltiazem HCl 125 mg/ Sodium (Chloride) 125 mls @ 0 mls/hr IVCONT .Q0M [facility]; Protocol Last Admin: 07/09/24 16:08 Dose: 10 mg/hr, 10 mls/hr Home Medications ?Medication ?Instructions ?Recorded ?Confirmed ?Last Taken ?Type dulaglutide 4.5 mg/0.5 mL 4.5 mg subcut TH 07/09/24 07/09/24 07/03/24 History subcutaneous pen injector (Trulicity) insulin degludec 100 unit/mL (3 unit subcut DAILY 07/09/24 07/09/24 07/08/24 History mL) subcutaneous pen levothyroxine 137 mcg tablet 137 mcg PO DAILY@0600 07/09/24 07/09/24 07/08/24 History metformin 500 mg tablet,extended 1,000 mg PO DAILY 07/09/24 07/09/24 07/08/24 History release 24 hr Physical Exam Vital Signs and Narrative: Vital Signs: Last Vital Signs Temp 100.6 F H 07/09/24 14:21 Pulse 125 H 07/09/24 16:08 Resp 25 H 07/09/24 16:07 BP 105/36 L 07/09/24 16:08 Pulse Ox 97 07/09/24 16:07 O2 Del Method Room Air 07/09/24 16:07 O2 Flow Rate 2 07/09/24 12:52 BMI result Body Mass Index 33.9 Constitutional: Alert, in no acute distress. Mental Status: Oriented to person, place and time. Eyes: Pupils are equal, round, and reactive to light. Ear, Nose, and Throat: Oropharynx clear, mucous membranes moist. Ears and nose without deformities. Trachea midline. Respiratory: Clear to auscultation bilaterally. No wheezing, rales, or rhonchi. Cardiovascular: Irregularly irregular heart rate, tachycardic. Gastrointestinal: Abdomen soft, non-distended, with mild epigastric and periumbilical tenderness. Normal bowel sounds. Neurologic: Cranial nerves II-XII are grossly intact bilaterally. No focal neurological deficits. Moves all extremities spontaneously. Skin: Warm, dry. Extremities: No edema. Psychiatric: Normal mood and affect. Results Labs 07/09/24 12:45 07/09/24 13:19 Labs: Laboratory Results - last 24 hr 07/09/24 07/09/24 07/09/24 12:42 12:45 13:19 MCV 62.8 L MCH 18.9 L MCHC 30.0 L RDW 16.4 H Plt Count 323 MPV Not Reportable Immature Gran % (Auto) 0.4 Neut % (Auto) 90.8 H Lymph % (Auto) 6.1 L [place] % (Auto) 2.2 Eos % (Auto) 0.3 Baso % (Auto) 0.2 Lymph # (Auto) 0.8 L [place] # (Auto) 0.3 Eos # (Auto) 0.0 Baso # (Auto) 0.0 Abs Immat Gran (auto) 0.06 H Absolute Neuts (auto) 12.2 H Absolute Nucleated RBC 0.000 Nucleated RBC % (auto) 0.0 Smear Tech's Comments VERIFIED PT 13.2 H INR 1.1 Anion Gap 16 Estim Creat Clear Calc 61.3 Estimated GFR > 60 POC Glucose 212 H Random Glucose 211 H Lactic Acid 2.7 H* Lactic Acid F/U @ 2Hr Calcium 8.5 Total Bilirubin 0.5 AST 16 ALT < 6 Alkaline Phosphatase 90 Troponin I High Sens 19.3 H Total Protein 6.4 L Albumin 3.4 L Urine Color Urine Appearance Urine pH Ur Specific [place] Urine Protein Urine Glucose (UA) Urine Ketones Urine Blood Urine Nitrite Ur Leukocyte Esterase 07/09/24 07/09/24 15:22 15:30 MCV MCH MCHC RDW Plt Count MPV Immature Gran % (Auto) Neut % (Auto) Lymph % (Auto) [place] % (Auto) Eos % (Auto) Baso % (Auto) Lymph # (Auto) [place] # (Auto) Eos # (Auto) Baso # (Auto) Abs Immat Gran (auto) Absolute Neuts (auto) Absolute Nucleated RBC Nucleated RBC % (auto) Smear Tech's Comments PT INR Anion Gap Estim Creat Clear Calc Estimated GFR POC Glucose Random Glucose Lactic Acid Lactic Acid F/U @ 2Hr 1.8 Calcium Total Bilirubin AST ALT Alkaline Phosphatase Troponin I High Sens Total Protein Albumin Urine Color Yellow Urine Appearance Clear Urine pH 6.5 Ur Specific [place] >= 1.030 H Urine Protein Negative Urine Glucose (UA) 100 H Urine Ketones 15 Urine Blood Negative Urine Nitrite Negative Ur Leukocyte Esterase Negative Imaging Radiologist's Impressions: Impressions Abdomen/Pelvis CT 07/09/24 14:22 IMPRESSION: Cardiomegaly and small pericardial effusion. No inflammatory process is identified in the abdomen or pelvis. Electronically signed by: Kofi Ohara MD 07/09/2024 03:06 PM [facility] Assessment and Plan (1) Atrial fibrillation with RVR: Status: Acute Plan Pt is a 69-year-old female with a PMH significant for paroxysmal AFib/flutter s/p ablation 05/06/21 on Eliquis, asthma, HTN, HLD, insulin-dependent type 2 diabetes, peripheral neuropathy, hx of DVT, and thyroid carcinoma s/p thyroidectomy with resultant hypothyroidism who presents to the ED with?after syncopal episode at home. Pt will be admitted to the hospital for for treatment and further evaluation of AFib with RVR requiring diltiazem drip. AFib with RVR Pt's HR as high as 172 in the ED Pt asymptomatic: Denies chest pain/pressure, palpitations S/P ablation on 05/06/2021 Received metoprolol 5 mg IV x3 doses, started on diltiazem drip in the ED Continue diltiazem drip Continue Eliquis Echocardiogram Cardiology consult Monitor on telemetry Syncopal episode Pt reports syncopal episode while brushing hair this morning in the bathroom Unclear etiology: Possibly cardiogenic in the setting of above Pt received IVF in the ED Treat as above Check orthostatics in the morning Monitor on telemetry Nausea, vomiting, diarrhea, abdominal pain Multiple episodes of vomiting and diarrhea yesterday Unclear etiology: CT of abdomen/pelvis negative for acute abdomen ?Viral enteritis Check GI panel if diarrhea returns Elevated troponins Initial troponin 19.3 with repeat flat at 24.3 Pt asymptomatic, EKG without significant ischemic changes Likely type 2 in the setting of increased demand Monitor on telemetry Elevated lactic acidosis Multifactorial: Secondary to N/V/D and metformin use No sepsis: No indication of active bacterial infection CT of abd/pelvis negative, CXR negative Leukocytosis reactionary, tachycardia secondary to AFib No indication to continue antibiotics at this time Check GI panel as above Asthma Not in acute exacerbation Continue home inhalers Insulin-dependent type [address] on sliding scale insulin, Lantus Diabetic diet Hypothyroidism Continue levothyroxine Full Code Attending:?Dr. Wilson DVT Prophylaxis: On Eliquis Pt will require a hospitalization of at least two nights for treatment of?AFib with RVR requiring Cardizem drip. pt will need inpatient level of care for close monitoring of cardiac function, IV Cardizem, and Cardiology consultation. Quality Stroke Does the patient have a stroke diagnosis?: No VTE Prior VTE?: No VTE Risk Level:: Medical - moderate - high VTE Device Contraindication: Treatment Not Indicated VTE Drug Contraindication: N/A - Med Ordered
[2024-07-09 16:50] LABS: Troponin-I High Sensitivity 24.3 ng/L (<3.5-17.0)
[2024-07-09 17:02] LABS: Influenza A PCR NEGATIVE (Negative); Influenza B PCR NEGATIVE (Negative); Resp Syncy Virus RNA Qual PCR NEGATIVE (Negative); SARS COV2 PCR INHOUSE NEGATIVE (Negative)
--- NOTE | 2024-07-09 18:11 | PHA.MEDREC ---
Addendum entered by Akil Alvarado [facility] 07/09/24 19:12: Med rec was reviewed by [facility]. Only 3 meds are active and match up with pharmacy claims (tresiba, humalog and eliquis). The remaining medications were filled in for 30 day supply but patient said she is taking them. Will have morning med rec team call [facility] to see if they have more recent claims for those meds. Provider is made aware of situation. Original Note: Pharmacy Consult ? Medication Reconciliation Pharmacy has completed the medication reconciliation. Spoke with patient with help of dedicated regional driver and she was able to confirm her medications but was confused on her insulins. She stated she was taking Lantus Solostar and stated she is injecting 22 units of it, I asked her if it was the Tresiba and if she had just recently got that in the last day or so and she confirmed she just got the injection and was confused on the name. She then states she was taking Tresiba once a week and when I asked about it being Trulicity she said yes and that was her mistake; she confirmed it was a 4.5mg injection and she takes it on and she stated she last took it 07/03. She also confirmed she is taking Humalog still and states she is only injecting 5 units daily and when I asked if it was three times a day before meals via a sliding scale she just stated shes just injecting 5 units daily of that . She states she took her medications all yesterday. The patient stated she is filling her medications at [facility] on [facility] and [facility] in [place]. I called [facility] to see the last time she filled medications there and [facility] states she has not filled anything there since 2022. I tried calling patient spouse Sae and he did not answer. I called patient daughter Rosy who was not sure about her moms medications and stated her sister Eli might. I called Eli to see if she might know anything but she was not sure either what she was taking. We will have morning med rec techs follow up in the AM to confirm the insulins.
[2024-07-09 21:05] LABS: Glucose, Whole Blood 244 mg/dL (60-115)
[2024-07-09] MEDS: Insulin Lispro 100 UNIT/ML 3 ML VIAL SUBCUT (22:07)
[2024-07-09] MEDS: Digoxin 0.25 MG TABLET PO (22:07)
[2024-07-10] VITALS (9 sets, daily range): BP systolic 105–142; BP diastolic 43–66; PULSE 51–65; RESP 16–29; TEMP 36.1–36.9; O2SAT 94–98; BMI 32.3
[2024-07-10] MEDS: dilTIAZem HCL 125 MG in 0.9 % Sodium Chloride 100 ML 15 MG IVCONT (02:54)
[2024-07-10] MEDS: 0.9 % Sodium Chloride Flush 3 ML SYRINGE IVFLUSH ×4 (03:31→20:33)
--- NOTE | 2024-07-10 03:33 | PC.NURSE ---
Consulted with Dr. Tenorio regarding patient's current heart rate of 60-64. Inquiring regarding Diltiazem infusion which was infusing at 15 ml/hour throughout the majority of the shift. Digoxin 0.25mg held due to borderline heart rate parameters (hold if <60 bpm). Per , instructed to pause Diltiazem infusion, and hold Digoxin due to heart rate. Diltiazem pause, and Digoxin held. Patient is sleeping at this time. No acute distress. Continues to await bed assignment. RN to RN report given to Mellisa.
--- NOTE | 2024-07-10 04:34 | PC.NURSE ---
This sign writer hand assumed care of this Pt at 0300. Pt appears to be sleeping at this time, Pt awakens with verbal stimuli, A&Ox3, denies any pain. Dilt drip paused by previous RN, HR in the low 60s. Plan of care on going.
[2024-07-10 05:55] LABS: Hematocrit 35.2 % (37.0-47.0); Hemoglobin 10.5 g/dl (12.0-16.0); Mean Corpuscular HGB Conc 29.8 g/dl (31.0-35.0); Mean Corpuscular Hemoglobin 18.7 pg (27.0-33.0); Mean Corpuscular Volume 62.6 fL (80.0-98.0); Platelet Count 275 X10*3/uL (160-400); Red Blood Count 5.62 X10*6/uL (4.20-5.50); Red Cell Distribution Width 15.2 % (11.0-16.0); White Blood Count 6.9 X10*3/uL (4.8-10.8)
[2024-07-10 06:12] LABS: Anion Gap 12 (12-20); Blood Urea Nitrogen 10 mg/dL (9-16); Calcium 8.2 mg/dL (8.4-10.2); Carbon Dioxide 25 mmol/L (22-29); Chloride 106 mmol/L (96-108); Creatinine Clr Calc Pharmacy 60.6; Estimated Glomerular Filt Rate > 60; Glucose Random 158 mg/dL (60-115); Potassium 3.7 mmol/L (3.3-5.1); Sodium 139 mmol/L (135-145)
--- NOTE | 2024-07-10 07:00 | CA_ITS ---
Transthoracic Echocardiogram Patient (Last, First, Middle): Alee Amato, Gender: Female Date of : 1955 Age: 69 Procedure Date: 07/10/2024 Procedure Type: Transthoracic Echocardiogram Location[place] [facility] [place] Height: 154.94 cm Weight: 81.19 kg BSA: 1.80 m2 Heart Rate: 59 bpm BP: 117 / 56 mmHg Retread Supervisor: SB Referring MD: Meño GALLAGHER Symptoms: AFib w/RVR, syncopal episode Study Quality: Adequate ECG Rhythm: Bradycardia Conclusions: - The left ventricular systolic function is normal. The calculated ejection fraction is 65% by biplane method. - Evidence suggests grade III (severe) diastolic dysfunction. - The left atrium is severely dilated. - No obvious valvular pathology seen on this study. Findings Left Ventricle Normal left ventricular cavity size. There is mildly increased left ventricular wall thickness. The left ventricular systolic function is normal. The calculated ejection fraction is 65% by biplane method. There is no evidence of regional wall motion abnormalities. Evidence suggests grade III (severe) diastolic dysfunction. There is moderate septal asymmetric hypertrophy. Right Ventricle Normal right ventricular cavity size. There is low normal right ventricular systolic function. Atria The left atrium is severely dilated. The right atrium is normal in size. Aortic Valve There is a normal trileaflet aortic valve. There is no aortic valve stenosis. There is no aortic valve regurgitation. Mitral Valve There is mild mitral annular calcification. There is no mitral valve regurgitation. There is no mitral valve stenosis. Pulmonic Valve The pulmonic valve is likely normal. Tricuspid Valve There is mild tricuspid valve regurgitation. There is no evidence of pulmonary hypertension. Great Vessels The asc aorta is normal in size. Venous The inferior vena cava is normal in size and collapses less than 50% with inspiration. Pericardium/Pleural There is no evidence of pericardial effusion. Prior Study Comparison No significant change compared to prior study dated: 03/21/2021. Recommendations, Care & Conclusions No obvious valvular pathology seen on this study. Measurements 2D Linear Measurements IVSd: 1.47 0.6-0.9/0.6-1.0 cm LVIDd: 4.86 3.9-5.3/4.2-5.9 cm LVIDd Index: 2.70 2.4-3.2/2.2-3.1 cm/m2 LVIDs: 2.59 2.0-3.6 cm LVPWd: 1.05 0.7-1.1 cm LA Diam: 4.50 2.7-3.8/3.0-4.0 cm LAIDs Index: 2.50 1.5-2.3 cm/m2 LV Mass: 298.64 67-162/88-224 g LV Mass Index: 165.91 43-95/49-115 g/m2 LVOT Diam: 1.90 3.0+(-)1.3 cm 2D Systolic Function EF 4C: 71.60 >55% EF 2C: 53.40 >55% EF BiP: 64.80 >55% Mitral Valve MV Pk E: 1.10 MV PK A: 0.35 MV Decel Time: 219.00 E/A: 3.20 E'Lateral: 5.77 E'Medial: 6.31 E/E' Med: 17.40 E/E' Lat: 19.10 PHT: 64.00 MVA PHT: 3.44 Decel [place]: 5.03 Aortic Valve AoV Pk Rafael: 1.33 AoV Pk Grad: 7.00 REBEKAH: 2.20 LVOT LVOT Pk Rafael: 1.03 LVOT Mn Rafael: 0.71 LVOT VTI: 0.23 LVOT Pk Grad: 4.00 LVOT Mn Grad: 2.00 LVOT Diam: 1.90 LVOT Area: 2.84 Diastolic Function MV Pk E: 1.10 MV Pk A: 0.35 E/A: 3.20 E'Medial: 6.31 E/E' Med: 17.40 E' Laterial: 5.77 E/E' Lat: 19.10 Right Ventricle TAPSE (mm): 18.00 TVS' Rafael: 9.90 Tricuspid Valve TR Pk Rafael: 1.75 TR Pk Grad: 12.00 RA Press: 8.00 RVSP: 20.00 Great Vessels Aorta Sinus of Valsalva: 3.30 2.0-3.5 cm Ao Asc: 3.20 2.1-3.4 cm Pulmonary Veins Pulm Vein S/D 0.40 Pulmonary Valve PV Pk Rafael: 0.94 Peak PV Grad: 4.00 Updated in Other Vendor System with Status of Final Aneudy Martinez MD electronically signed on 07/10/2024 12:27:09 PM with status of Final
[2024-07-10] MEDS: Insulin Lispro 100 UNIT/ML 3 ML VIAL SUBCUT ×3 (07:29→20:33)
[2024-07-10] MEDS: Levothyroxine Sodium 112 MCG, Levothyroxine Sodium 25 MCG 137 MCG PO (07:30)
[2024-07-10 07:31] LABS: Glucose, Whole Blood 162 mg/dL (60-115)
--- NOTE | 2024-07-10 09:02 | MHC.CM.PN ---
CM met with Patient at bedside with the assist of Sinhala translation and addressed IMM with her (original was given to Patient and a copy has been placed on the chart). 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 Home/resume said services is the goal and CM has initiated and will follow for dc planning. PCP is Dr. oJ Walton and Daughter will transport to home.
--- NOTE | 2024-07-10 09:07 | ECG_ITS ---
Test Reason : rhythm check; previously atrial flutter Blood Pressure : */* mmHG Vent. Rate : 56 BPM Atrial Rate : 56 BPM P-R Int : 162 ms QRS Dur : 118 ms QT Int : 454 ms P-R-T Axes : 79 -49 -37 degrees QTcB Int : 438 ms Sinus bradycardia with Premature atrial complexes Right bundle branch block Left anterior fascicular block Bifascicular block Abnormal ECG When compared with ECG of 09-Jul-2024 14:38, Sinus rhythm has replaced Atrial flutter Vent. rate has decreased by 69 bpm Referred By: Demetris Mix Electronically Signed By: DEMETRIS MIX
[2024-07-10] MEDS: Insulin Glargine,Hum.rec.anlog 100 UNIT/ML 10 ML VIAL 16 UNIT SUBCUT (09:09)
[2024-07-10] MEDS: Cholecalciferol (Vitamin D3) 25 MCG TABLET 50 MCG PO (09:09)
[2024-07-10] MEDS: Ferrous Sulfate 324 MG TABLET.DR PO (09:09)
[2024-07-10] MEDS: Atorvastatin Calcium 80 MG TABLET PO (09:09)
[2024-07-10 09:11] LABS: Glucose, Whole Blood 169 mg/dL (60-115)
--- NOTE | 2024-07-10 09:22 | PM.CNCAR ---
History of Present Illness History of Present Illness Date of Service: 07/10/24 Chief complaint: AFib w/RVR Narrative: This is a cardiology consultation regarding atrial flutter. Presenting complaint is syncope. She has apparently had GI issues including several episodes of nausea, vomiting, diarrhea, abdominal pain. In this context, it seems she had a syncopal episode. Then presented to the ER where she had atrial flutter with rapid ventricular rate. Has received metoprolol/diltiazem intravenously in the ER and eventually it seems she is back to normal sinus rhythm but not clear when she actually converted. Currently, she is in sinus. Patient denies any cardiac symptoms including palpitations or chest pains or shortness of breath or in fact anything cardiac sounding. Otherwise, she states she feels okay. EP consultation reviewed from April. It seems she has a history of persistent atrial fibrillation/flutter, status post ablation in 2020. After that, it seems she was on amiodarone for a while which was stopped. She remains on anticoagulation. Per EP note, there is also metoprolol ER 100 mg listed but not clear if she is actually taking it or not. Review of Systems Review of Systems: Yes all other systems are reviewed and are negative Constitutional: Constitutional: Reports as per HPI and Reports no additional constitutional complaints Eyes: Eyes: Reports as per HPI and Denies no additional eye complaints ENT: Denies system reviewed and no additional complaints, except as documented and Reports as per HPI Cardiovascular: Cardiovascular: Reports as per HPI, Reports no additional cardiovascular complaints, Denies acrocyanosis, Denies cool extremities, Denies chest pain, Denies leg edema, Denies lightheadedness, Denies palpitations and Denies dyspnea Respiratory: Respiratory: Reports as per HPI, Denies no additional respiratory complaints and Denies dyspnea Gastrointestinal: Gastrointestinal: Reports as per HPI and Denies no additional gastrointestinal complaints Genitourinary: Genitourinary: Reports as per HPI Musculoskeletal: Musculoskeletal: Reports no additional musculoskeletal complaints and Reports as per HPI Integumentary/Breasts: Skin/Breast: Reports system reviewed and no additional complaints, except as docu Neurologic: Reports system reviewed and no additional complaints, except as documented and Reports as per HPI Psychiatric: Psychiatric: Reports no additional psychiatric complaints and Reports as per HPI Endocrine: Endocrine: Reports no additional endocrine complaints, Reports as per HPI and Denies palpitations Hematologic/Lymphatic: Hematologic/Lymphatic: Reports no additional hematologic/lymphatic complaints and Reports as per HPI Allergic/Immunologic: Allergic/Immunologic: Reports no additional allergic/immunologic complaints and Reports as per HPI [facility] Past Medical History Medical History Hypothyroidism Asthma Pericardial effusion Pneumonitis Pleural effusion Hypoglycemia unawareness associated with type 2 diabetes mellitus Post-surgical hypothyroidism 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 Mother Arthritis Surgical History Surgical History Hx of colonoscopy Hx of total thyroidectomy Hx of hysterectomy Social History Social History Household Members: Family Housing: House Do you presently have visiting nurse or other home services: Yes ([employer]) Alcohol intake: never Patient Tobacco Use Status: Never used Tobacco Smoked in Last 30 Days: No e-Cigarette/Vaping Use: Never Used Second Hand Smoke Exposure: No Use of substances other than those prescribed or required for medical reasons: No Do you feel safe in your current relationship?: Yes Advance Directives: No Do you have a plan to hurt others: No Plan Nutrition Risks: No Nutritional Risk Patient : No : No Poor oral hygiene: No service: No Current occupational status: disabled Cognitive needs: No Hearing needs: No Vision needs: No Meds Allergies Allergy/AdvReac Type Severity Reaction Status Date / Time empagliflozin Allergy Intermediate ITCHY/RASH Verified 07/09/24 12:45 [From JARDIANCE] JARDIANCE Allergy Intermediate pruritus Uncoded 07/09/24 12:45 Active Medications: Current Medications Acetaminophen (Acetaminophen 325 Mg Tablet) 650 mg PO Q6H PRN PRN Reason: Pain, Mild 1-3,fever,headache Albuterol Sulfate (Albuterol Sulfate 90 Mcg 8 Gm Inhaler) 2 puff INHALE Q6H PRN PRN Reason: shortness of breath or wheezing Atorvastatin Calcium (Atorvastatin Calcium 80 Mg Tablet) 80 mg PO DAILY RENU Last Admin: 07/10/24 09:09 Dose: 80 mg Calcium Carbonate (Calcium Carbonate 750 Mg Tab.Chew) 750 mg PO Q4H PRN PRN Reason: Heartburn Ferrous Sulfate (Ferrous Sulfate 324 Mg Tablet.Dr) 324 mg PO DAILY [facility] Last Admin: 07/10/24 09:09 Dose: 324 mg Glucose (Glucose Gel 15 Gm Gel..Gram.) 15 gm PO Q15M PRN; Protocol PRN Reason: per Hypoglycemia Standing Ord. Diltiazem HCl 125 mg/ Sodium (Chloride) 125 mls @ 0 mls/hr IVCONT .Q0M [facility]; Protocol Last Titration: 07/10/24 03:31 Dose: 0 mg/hr, 0 mls/hr Dextrose (D10) 250 mls @ 750 mls/hr IV Q15M PRN; Protocol PRN Reason: per Hypoglycemia Standing Ord. Insulin Glargine (Insulin Glargine,Hum.Rec.Anlog 100 Unit/Ml 10 Ml Vial) 16 unit SUBCUT DAILY [facility] Last Admin: 07/10/24 09:09 Dose: 16 unit Insulin Human Lispro (Insulin Lispro 100 Unit/Ml 3 Ml Vial) 0 unit SUBCUT QIDACHS [facility]; Protocol Last Admin: 07/10/24 07:29 Dose: 2 unit Levothyroxine Sodium 112 mcg/ (Levothyroxine Sodium 25 mcg) 137 mcg PO DAILY@0600 [facility] Last Admin: 07/10/24 07:30 Dose: 137 mcg Magnesium Hydroxide (Milk Of Magnesia 30 Ml Oral.Susp) 30 ml PO DAILY PRN PRN Reason: Constipation Melatonin (Melatonin 3 Mg Tablet) 6 mg PO BEDTIME PRN PRN Reason: Insomnia Ondansetron HCl (Ondansetron Hcl 4 Mg/2 Ml Vial) 4 mg IVPUSH Q8H PRN PRN Reason: Nausea and Vomiting Sodium Chloride (0.9 % Sodium Chloride Flush 3 Ml Syringe) 3 ml IVFLUSH QSHIFT [facility] Last Admin: 07/10/24 07:31 Dose: 3 ml Vitamin D (Cholecalciferol (Vitamin D3) 25 Mcg Tablet) 50 mcg PO DAILY [facility] Last Admin: 07/10/24 09:09 Dose: 50 mcg Home Medications ?Medication ?Instructions ?Recorded ?Confirmed ?Last Taken ?Type dulaglutide 4.5 mg/0.5 mL 4.5 mg subcut 07/09/24 07/09/24 07/03/24 History subcutaneous pen injector (Trulicity) insulin degludec 100 unit/mL (3 22 unit subcut DAILY 07/09/24 07/09/24 07/08/24 History mL) subcutaneous pen levothyroxine 137 mcg tablet 137 mcg PO DAILY@0600 07/09/24 07/09/24 07/08/24 History metformin 500 mg tablet,extended 1,000 mg PO DAILY 07/09/24 07/09/24 07/08/24 History release 24 hr Physical Exam Vital Signs: Vital Signs: Last Vital Signs Temp 97.6 F 07/10/24 04:00 Pulse 61 07/10/24 04:00 Resp 29 H 07/10/24 04:00 BP 117/56 L 07/10/24 04:00 Pulse Ox 94 07/10/24 04:00 O2 Del Method Room Air 07/10/24 04:00 O2 Flow Rate 2 07/09/24 12:52 BMI result Body Mass Index 33.9 Const: General: comfortable and no acute distress Orientation/consciousness: patient oriented x3 HEENT: Other: Unremarkable Head: Yes normal to inspection Neck: Neck: Yes normal visual inspection Chest: Chest palpation & inspection: normal inspection of the chest Resp: Auscultation: clear to auscultation bilaterally Cardio: Palpation: normal PMI Heart sounds: S1 normal heart sound present, S2 normal heart sound present, no gallops, no murmurs and no rubs GI: Palpation (GI): Soft to palpation Back/Spine/Pelvis: Other: unremarkable Skin: General skin exam: no rashes or lesions noted Neuro: General: patient oriented x3 Extrem: General: Yes normal to inspection Psych: Mental Status: mental status grossly normal Objective Labs and Meds 07/10/24 05:12 07/10/24 05:12 Lab results: Laboratory Results - last 24 hr 07/09/24 07/09/24 07/09/24 12:42 12:45 13:19 WBC 13.4 H RBC 6.46 H Hgb 12.2 Hct 40.6 MCV 62.8 L MCH 18.9 L MCHC 30.0 L RDW 16.4 H Plt Count 323 MPV Not Reportable Immature Gran % (Auto) 0.4 Neut % (Auto) 90.8 H Lymph % (Auto) 6.1 L [place] % (Auto) 2.2 Eos % (Auto) 0.3 Baso % (Auto) 0.2 Lymph # (Auto) 0.8 L [place] # (Auto) 0.3 Eos # (Auto) 0.0 Baso # (Auto) 0.0 Abs Immat Gran (auto) 0.06 H Absolute Neuts (auto) 12.2 H Absolute Nucleated RBC 0.000 Nucleated RBC % (auto) 0.0 Smear Tech's Comments VERIFIED Smear Path Review SEE NOTE PT 13.2 H INR 1.1 Sodium 143 Potassium 4.6 D Chloride 108 Carbon Dioxide 24 Anion Gap 16 BUN 14 Creatinine 0.86 Estim Creat Clear Calc 61.3 Estimated GFR > 60 POC Glucose 212 H Random Glucose 211 H Lactic Acid 2.7 H* Lactic Acid F/U @ 2Hr Calcium 8.5 Total Bilirubin 0.5 AST 16 ALT < 6 Alkaline Phosphatase 90 Troponin I High Sens 19.3 H Total Protein 6.4 L Albumin 3.4 L Urine Color Urine Appearance Urine pH Ur Specific [place] Urine Protein Urine Glucose (UA) Urine Ketones Urine Blood Urine Nitrite Ur Leukocyte Esterase Influenza Type A (PCR) Influenza Type B (PCR) RSV RNA Qual (PCR) SARS-CoV-2 RNA (RT-PCR) 07/09/24 07/09/24 07/09/24 15:22 15:30 16:17 WBC RBC Hgb Hct MCV MCH MCHC RDW Plt Count MPV Immature Gran % (Auto) Neut % (Auto) Lymph % (Auto) [place] % (Auto) Eos % (Auto) Baso % (Auto) Lymph # (Auto) [place] # (Auto) Eos # (Auto) Baso # (Auto) Abs Immat Gran (auto) Absolute Neuts (auto) Absolute Nucleated RBC Nucleated RBC % (auto) Smear Tech's Comments Smear Path Review PT INR Sodium Potassium Chloride Carbon Dioxide Anion Gap BUN Creatinine Estim Creat Clear Calc Estimated GFR POC Glucose Random Glucose Lactic Acid Lactic Acid F/U @ 2Hr 1.8 Calcium Total Bilirubin AST ALT Alkaline Phosphatase Troponin I High Sens 24.3 H Total Protein Albumin Urine Color Yellow Urine Appearance Clear Urine pH 6.5 Ur Specific [place] >= 1.030 H Urine Protein Negative Urine Glucose (UA) 100 H Urine Ketones 15 Urine Blood Negative Urine Nitrite Negative Ur Leukocyte Esterase Negative Influenza Type A (PCR) NEGATIVE Influenza Type B (PCR) NEGATIVE RSV RNA Qual (PCR) NEGATIVE SARS-CoV-2 RNA (RT-PCR) NEGATIVE 07/09/24 07/10/24 07/10/24 20:58 05:12 07:21 WBC 6.9 RBC 5.62 H Hgb 10.5 L Hct 35.2 L MCV 62.6 L MCH 18.7 L MCHC 29.8 L RDW 15.2 Plt Count 275 MPV Not Reportable Immature Gran % (Auto) Neut % (Auto) Lymph % (Auto) [place] % (Auto) Eos % (Auto) Baso % (Auto) Lymph # (Auto) [place] # (Auto) Eos # (Auto) Baso # (Auto) Abs Immat Gran (auto) Absolute Neuts (auto) Absolute Nucleated RBC 0.000 Nucleated RBC % (auto) 0.0 Smear Tech's Comments Smear Path Review PT INR Sodium 139 Potassium 3.7 Chloride 106 Carbon Dioxide 25 Anion Gap 12 BUN 10 Creatinine 0.87 Estim Creat Clear Calc 60.6 Estimated GFR > 60 POC Glucose 244 H 162 H Random Glucose 158 H Lactic Acid Lactic Acid F/U @ 2Hr Calcium 8.2 L Total Bilirubin AST ALT Alkaline Phosphatase Troponin I High Sens Total Protein Albumin Urine Color Urine Appearance Urine pH Ur Specific [place] Urine Protein Urine Glucose (UA) Urine Ketones Urine Blood Urine Nitrite Ur Leukocyte Esterase Influenza Type A (PCR) Influenza Type B (PCR) RSV RNA Qual (PCR) SARS-CoV-2 RNA (RT-PCR) 07/10/24 09:08 WBC RBC Hgb Hct MCV MCH MCHC RDW Plt Count MPV Immature Gran % (Auto) Neut % (Auto) Lymph % (Auto) [place] % (Auto) Eos % (Auto) Baso % (Auto) Lymph # (Auto) [place] # (Auto) Eos # (Auto) Baso # (Auto) Abs Immat Gran (auto) Absolute Neuts (auto) Absolute Nucleated RBC Nucleated RBC % (auto) Smear Tech's Comments Smear Path Review PT INR Sodium Potassium Chloride Carbon Dioxide Anion Gap BUN Creatinine Estim Creat Clear Calc Estimated GFR POC Glucose 169 H Random Glucose Lactic Acid Lactic Acid F/U @ 2Hr Calcium Total Bilirubin AST ALT Alkaline Phosphatase Troponin I High Sens Total Protein Albumin Urine Color Urine Appearance Urine pH Ur Specific [place] Urine Protein Urine Glucose (UA) Urine Ketones Urine Blood Urine Nitrite Ur Leukocyte Esterase Influenza Type A (PCR) Influenza Type B (PCR) RSV RNA Qual (PCR) SARS-CoV-2 RNA (RT-PCR) ECG Interpretation: Initial EKG showed atrial flutter with rapid rate and a bifascicular block type pattern. Ventricular rate was 154/Min. Current rhythm is sinus at 56/Min. Right bundle-branch block and left anterior fascicular block. Imaging Radiologist's impression: Impressions Abdomen/Pelvis CT 07/09/24 14:22 IMPRESSION: Cardiomegaly and small pericardial effusion. No inflammatory process is identified in the abdomen or pelvis. Electronically signed by: Kofi Ohara MD 07/09/2024 03:06 PM [facility] [place] Assessment and Plan (1) Atrial flutter with rapid ventricular response: Status: Acute (2) Cardiomyopathy: Status: Acute Plan Atrial flutter with rapid ventricular response in the setting of GI symptoms, now back in normal sinus rhythm. For medications, EP note lists metoprolol ER 100 mg daily but not actually clear if she is taking it or not. If she is indeed taking it every day, then continue that. If not, may resume a small dose of beta-nick as she is having sinus bradycardia. Probably metoprolol ER 25 mg daily and we can go from there. Continue anticoagulation. Per [facility] notes, she has a cardiomyopathy with an LVEF of 35% in the past. Clinically, no symptoms or signs of congestive heart failure. Repeat echocardiogram is pending. Procedures Date of Service Date of Service: 07/10/24
[2024-07-10 10:52] LABS: Glucose, Whole Blood 170 mg/dL (60-115)
[2024-07-10 10:53] LABS: Adenovirus PCR Not Detected (Not Detect.); Bordetella parapertussis PCR Not Detected (Not Detect.); Bordetella pertussis PCR Not Detected (Not Detect.); Chlamydia pneumoniae PCR Not Detected (Not Detect.); Coronavirus 229E PCR Not Detected (Not Detect.); Coronavirus HKU1 PCR Not Detected (Not Detect.); Coronavirus NL63 PCR Not Detected (Not Detect.); Coronavirus OC43 PCR Not Detected (Not Detect.); Human metapneumovirus PCR Not Detected (Not Detect.); Influenza A PCR Not Detected (Not Detect.); Influenza B PCR Not Detected (Not Detect.); Mycoplasma pneumoniae PCR Not Detected (Not Detect.); Parainfluenza 1 PCR Not Detected (Not Detect.); Parainfluenza 2 PCR Not Detected (Not Detect.); Parainfluenza 3 PCR Not Detected (Not Detect.); Parainfluenza 4 PCR Not Detected (Not Detect.); RSV PCR Not Detected (Not Detect.); Rhino/Enterovirus PCR Not Detected (Not Detect.)
[2024-07-10 10:56] LABS: SARS-CoV-2 PCR Not Detected (Not Detect.)
[2024-07-10] MEDS: Metoprolol Succinate ER 25 MG TAB.ER.24H PO (11:02)
[2024-07-10 14:35] LABS: Lactic Acid 2.7 mmol/L (0.5-2.0)
--- NOTE | 2024-07-10 14:37 | P.PNIM_ITS ---
Subjective Subjective Date of Service: 07/10/24 Interval History: afib ? viral synd Review of Systems denies any chest pain or sob denies any abd pain or diarrhae now Physical Exam 2 Vital Signs: Vital Signs: Last Vital Signs Temp 97.8 F 07/10/24 10:51 Pulse 56 07/10/24 10:51 Resp 18 07/10/24 10:51 BP 114/59 L 07/10/24 10:51 Pulse Ox 95 07/10/24 10:51 O2 Del Method Room Air 07/10/24 10:51 O2 Flow Rate 2 07/09/24 12:52 BMI result Body Mass Index 32.3 Appearance: Alert.? Oriented X3.? cvs: rrr, [id number] . res: clear to auscultation ,no rhonchii or wheezing abd: no rebound or guarding ,nt, bs present. ext pulses present , no cyanosis . neuro: axo3 , nonfocal. Objective Data Active Medications Acetaminophen (Acetaminophen 325 Mg Tablet) 650 mg PO Q6H PRN PRN Reason: Pain, Mild 1-3,fever,headache Albuterol Sulfate (Albuterol Sulfate 90 Mcg 8 Gm Inhaler) 2 puff INHALE Q6H PRN PRN Reason: shortness of breath or wheezing Atorvastatin Calcium (Atorvastatin Calcium 80 Mg Tablet) 80 mg PO DAILY [facility] [place] Last Admin: 07/10/24 09:09 Dose: 80 mg Documented By: CHEN Calcium Carbonate (Calcium Carbonate 750 Mg Tab.Chew) 750 mg PO Q4H PRN PRN Reason: Heartburn Ferrous Sulfate (Ferrous Sulfate 324 Mg Tablet.) 324 mg PO DAILY [facility] [place] Last Admin: 07/10/24 09:09 Dose: 324 mg Documented By: CHEN Glucose (Glucose Gel 15 Gm Gel..Gram.) 15 gm PO Q15M PRN; Protocol PRN Reason: per Hypoglycemia Standing Ord. Dextrose (D10) 250 mls @ 750 mls/hr IV Q15M PRN; Protocol PRN Reason: per Hypoglycemia Standing Ord. Insulin Glargine (Insulin Glargine,Hum.Rec.Anlog 100 Unit/Ml 10 Ml Vial) 16 unit SUBCUT DAILY [facility] [place] Last Admin: 07/10/24 09:09 Dose: 16 unit Documented By: CHEN Insulin Human Lispro (Insulin Lispro 100 Unit/Ml 3 Ml Vial) 0 unit SUBCUT QIDACHS [facility] [place]; Protocol Last Admin: 07/10/24 11:01 Dose: 2 unit Documented By: CHEN Levothyroxine Sodium 112 mcg/ (Levothyroxine Sodium 25 mcg) 137 mcg PO DAILY@0600 [facility] [place] Last Admin: 07/10/24 07:30 Dose: 137 mcg Documented By: EMMANUEL Magnesium Hydroxide (Milk Of Magnesia 30 Ml Oral.Susp) 30 ml PO DAILY PRN PRN Reason: Constipation Melatonin (Melatonin 3 Mg Tablet) 6 mg PO BEDTIME PRN PRN Reason: Insomnia Metoprolol Succinate (Metoprolol Succinate Er 25 Mg Tab.Er.24h) 25 mg PO DAILY [facility] [place]; Protocol Last Admin: 07/10/24 11:02 Dose: 25 mg Documented By: CHEN Ondansetron HCl (Ondansetron Hcl 4 Mg/2 Ml Vial) 4 mg IVPUSH Q8H PRN PRN Reason: Nausea and Vomiting Sodium Chloride (0.9 % Sodium Chloride Flush 3 Ml Syringe) 3 ml IVFLUSH QSHIFT [facility] [place] Last Admin: 07/10/24 07:31 Dose: 3 ml Documented By: EMMANUEL Vitamin D (Cholecalciferol (Vitamin D3) 25 Mcg Tablet) 50 mcg PO DAILY [facility] [place] Last Admin: 07/10/24 09:09 Dose: 50 mcg Documented By: CHEN Labs 07/10/24 05:12 07/10/24 05:12 Labs: Laboratory Results - last 24 hr 07/09/24 07/09/24 07/09/24 12:45 15:22 15:30 MCV MCH MCHC RDW Plt Count MPV Absolute Nucleated RBC Nucleated RBC % (auto) Smear Path Review SEE NOTE Anion Gap Estim Creat Clear Calc Estimated GFR POC Glucose Random Glucose Lactic Acid 2.7 H* Lactic Acid F/U @ 2Hr 1.8 Calcium Troponin I High Sens Urine Color Yellow Urine Appearance Clear Urine pH 6.5 Ur Specific [place] >= 1.030 H Urine Protein Negative Urine Glucose (UA) 100 H Urine Ketones 15 Urine Blood Negative Urine Nitrite Negative Ur Leukocyte Esterase Negative Respiratory Panel [place] Adenovirus (Rapid PCR) B.pert (TEM-PCR) B.parapertussis DNA PCR C. pneumoniae DNA (PCR) Coronavirus OC43 (PCR) Coronavirus HKU1 (PCR) Coronavirus 229E (PCR) Coronavirus NL63 (PCR) Human Metapneumovir PCR Influenza A (RT-PCR) Influenza Type A (PCR) Influenza B (RT-PCR) Influenza Type B (PCR) M. pneumoniae (PCR) Parainfluenza 1 (PCR) Parainfluenza 2 (PCR) Parainfluenza 3 (PCR) Parainfluenza 4 (PCR) RSV (PCR) RSV RNA Qual (PCR) Entero/Rhino (PCR) SARS-CoV-2 RNA (RT-PCR) 07/09/24 07/09/24 07/09/24 16:17 18:24 20:58 MCV MCH MCHC RDW Plt Count MPV Absolute Nucleated RBC Nucleated RBC % (auto) Smear Path Review Anion Gap Estim Creat Clear Calc Estimated GFR POC Glucose 244 H Random Glucose Lactic Acid Lactic Acid F/U @ 2Hr Calcium Troponin I High Sens 24.3 H Urine Color Urine Appearance Urine pH Ur Specific [place] Urine Protein Urine Glucose (UA) Urine Ketones Urine Blood Urine Nitrite Ur Leukocyte Esterase Respiratory Panel [place] See Note Adenovirus (Rapid PCR) Not Detected B.pert (TEM-PCR) Not Detected B.parapertussis DNA PCR Not Detected C. pneumoniae DNA (PCR) Not Detected Coronavirus OC43 (PCR) Not Detected Coronavirus HKU1 (PCR) Not Detected Coronavirus 229E (PCR) Not Detected Coronavirus NL63 (PCR) Not Detected Human Metapneumovir PCR Not Detected Influenza A (RT-PCR) Not Detected Influenza Type A (PCR) NEGATIVE Influenza B (RT-PCR) Not Detected Influenza Type B (PCR) NEGATIVE M. pneumoniae (PCR) Not Detected Parainfluenza 1 (PCR) Not Detected Parainfluenza 2 (PCR) Not Detected Parainfluenza 3 (PCR) Not Detected Parainfluenza 4 (PCR) Not Detected RSV (PCR) Not Detected RSV RNA Qual (PCR) NEGATIVE Entero/Rhino (PCR) Not Detected SARS-CoV-2 RNA (RT-PCR) NEGATIVE Not Detected 07/10/24 07/10/24 07/10/24 05:12 07:21 09:08 MCV 62.6 L MCH 18.7 L MCHC 29.8 L RDW 15.2 Plt Count 275 MPV Not Reportable Absolute Nucleated RBC 0.000 Nucleated RBC % (auto) 0.0 Smear Path Review Anion Gap 12 Estim Creat Clear Calc 60.6 Estimated GFR > 60 POC Glucose 162 H 169 H Random Glucose 158 H Lactic Acid Lactic Acid F/U @ 2Hr Calcium 8.2 L Troponin I High Sens Urine Color Urine Appearance Urine pH Ur Specific [place] Urine Protein Urine Glucose (UA) Urine Ketones Urine Blood Urine Nitrite Ur Leukocyte Esterase Respiratory Panel [place] Adenovirus (Rapid PCR) B.pert (TEM-PCR) B.parapertussis DNA PCR C. pneumoniae DNA (PCR) Coronavirus OC43 (PCR) Coronavirus HKU1 (PCR) Coronavirus 229E (PCR) Coronavirus NL63 (PCR) Human Metapneumovir PCR Influenza A (RT-PCR) Influenza Type A (PCR) Influenza B (RT-PCR) Influenza Type B (PCR) M. pneumoniae (PCR) Parainfluenza 1 (PCR) Parainfluenza 2 (PCR) Parainfluenza 3 (PCR) Parainfluenza 4 (PCR) RSV (PCR) RSV RNA Qual (PCR) Entero/Rhino (PCR) SARS-CoV-2 RNA (RT-PCR) 07/10/24 10:48 MCV MCH MCHC RDW Plt Count MPV Absolute Nucleated RBC Nucleated RBC % (auto) Smear Path Review Anion Gap Estim Creat Clear Calc Estimated GFR POC Glucose 170 H Random Glucose Lactic Acid Lactic Acid F/U @ 2Hr Calcium Troponin I High Sens Urine Color Urine Appearance Urine pH Ur Specific [place] Urine Protein Urine Glucose (UA) Urine Ketones Urine Blood Urine Nitrite Ur Leukocyte Esterase Respiratory Panel [place] Adenovirus (Rapid PCR) B.pert (TEM-PCR) B.parapertussis DNA PCR C. pneumoniae DNA (PCR) Coronavirus OC43 (PCR) Coronavirus HKU1 (PCR) Coronavirus 229E (PCR) Coronavirus NL63 (PCR) Human Metapneumovir PCR Influenza A (RT-PCR) Influenza Type A (PCR) Influenza B (RT-PCR) Influenza Type B (PCR) M. pneumoniae (PCR) Parainfluenza 1 (PCR) Parainfluenza 2 (PCR) Parainfluenza 3 (PCR) Parainfluenza 4 (PCR) RSV (PCR) RSV RNA Qual (PCR) Entero/Rhino (PCR) SARS-CoV-2 RNA (RT-PCR) Assessment and Plan (1) Atrial flutter with rapid ventricular response: Status: Acute Assessment and Plan: 69-year-old female with a PMH significant for paroxysmal AFib/flutter s/p ablation 05/06/21 on Eliquis, asthma, HTN, HLD, insulin-dependent type 2 diabetes, peripheral neuropathy, hx of DVT, and thyroid carcinoma s/p thyroidectomy with resultant hypothyroidism who presents to the ED with?after syncopal episode at home. Pt will be admitted to the hospital for for treatment and further evaluation of AFib with RVR requiring diltiazem drip. AFib with RVR mild elevated trops Pt asymptomatic: Denies chest pain/pressure, palpitations S/P ablation on 05/06/2021 Received metoprolol 5 mg IV x3 doses and diltiazem drip . converted to sinus patient was not taking her metropolol ,so started on metoprolol 25 mg qd(considering bradycardia),continue Eliquis Echocardiogram:The left ventricular systolic function is normal. The calculated ejection fraction is 65% by biplane method,Evidence suggests grade III (severe) diastolic dysfunction. Cardiology consult-recomended to start metoprolol/continue eliquis. Syncopal episode Pt reports syncopal episode while brushing hair this morning in the bathroom: possible multifactorial: sec to gi losses ,afib. Check orthostatics . Monitor on telemetry Nausea, vomiting, diarrhea, abdominal pain Multiple episodes of vomiting and diarrhea yesterday Unclear etiology: CT of abdomen/pelvis negative for acute abdomen ?Viral enteritis Check GI panel if diarrhea returns. acute lactic acidosis Multifactorial: Secondary to N/V/D and metformin use No sepsis: No indication of active bacterial infection CT of abd/pelvis negative, CXR negative,ua negative Asthma Not in acute exacerbation Continue home inhalers Insulin-dependent type [address] on sliding scale insulin, Lantus Diabetic diet Hypothyroidism Continue levothyroxine Full Code DVT Prophylaxis: On Eliquis ongoing need: afib converted back to sinus berny-started on bb and need monitering for tele and symptoms ,orthostatics monitering. Quality Stroke Does the patient have a stroke diagnosis?: No VTE Prior VTE?: No VTE Risk Level:: Medical - moderate - high VTE Device Contraindication: Treatment Not Indicated VTE Drug Contraindication: N/A - Med Ordered
[2024-07-10 16:32] LABS: Glucose, Whole Blood 149 mg/dL (60-115)
[2024-07-10 20:18] LABS: Glucose, Whole Blood 197 mg/dL (60-115)
[2024-07-11 03:03] VITALS: BP 139/60; PULSE 50; RESP 16; TEMP 36.3; O2SAT 98
[2024-07-11] MEDS: Levothyroxine Sodium 112 MCG, Levothyroxine Sodium 25 MCG 137 MCG PO (06:35)
[2024-07-11 07:36] LABS: Glucose, Whole Blood 139 mg/dL (60-115)
[2024-07-11 08:00] VITALS: BP 129/63; PULSE 51; RESP 12; TEMP 36.3; O2SAT 96
[2024-07-11 08:03] VITALS: BP 139/63; PULSE 52
[2024-07-11 08:14] VITALS: BP 162/69; PULSE 58
[2024-07-11] MEDS: Ferrous Sulfate 324 MG TABLET.DR PO (08:32)
[2024-07-11] MEDS: Atorvastatin Calcium 80 MG TABLET PO (08:32)
[2024-07-11] MEDS: Metoprolol Succinate ER 25 MG TAB.ER.24H PO (08:32)
[2024-07-11] MEDS: Insulin Glargine,Hum.rec.anlog 100 UNIT/ML 10 ML VIAL 16 UNIT SUBCUT (08:32)
[2024-07-11] MEDS: Cholecalciferol (Vitamin D3) 25 MCG TABLET 50 MCG PO (08:32)
[2024-07-11] MEDS: 0.9 % Sodium Chloride Flush 3 ML SYRINGE IVFLUSH (08:32)
[2024-07-11 09:09] VITALS: BP 146/65; BP 162/69; PULSE 53; PULSE 58
--- NOTE | 2024-07-11 11:16 | MHC.CM.PN ---
Patient has been medically cleared for dc to home today, self care. IMM addressed yesterday.
[2024-07-11 11:24] LABS: Glucose, Whole Blood 164 mg/dL (60-115)
--- NOTE | 2024-07-11 11:25 | P.DS_ITS ---
DS: Providers Provider Date of Service: 07/11/24 Date of admission: 07/09/24 17:38 Date of discharge: 07/11/24 Primary care physician: Jo Montiel MD Consults: 07/09/24 18:20 Consult to Cardiology Routine Consulting Provider: [facility] Reason for consultation: Afib w/RVR Attending physician on discharge: Alka Wilson Discharging clinician: Alka Wilson DS: Diagnosis Discharge Diagnosis (1) Atrial flutter with rapid ventricular response: Status: Acute DS: Summary Hospital Course Hospital Course: HPI:69-year-old female with a PMH significant for paroxysmal AFib/flutter s/p ablation 05/06/21 on Eliquis, asthma, HTN, HLD, insulin-dependent type 2 diabetes, peripheral neuropathy, hx of DVT, and thyroid carcinoma s/p thyroidectomy with resultant hypothyroidism who presents to the ED with?after syncopal episode at home. Pt reports yesterday experienced multiple episodes of nausea, vomiting, and diarrhea, as well as associated diffuse abdominal pain. This morning pt reports was brushing her hair in the bathroom when she felt lightheaded and then everything went ?black?. Daughter was by her side and able to catch her and hold her up before she fell to the floor. Pt reports has had at least 4 similar episodes before where she has been seen and evaluated at [facility] Pt also reports has had 3 previous cardioversions with last one completed 3 years ago, again at [facility]. Denies chest pain/pressure, palpitations. Denies fever or chills. No shortness a breath or difficulty breathing. Denies increasing lower leg edema. Review of [facility] [place] indicates pt previously on Lovenox in 2020 for anticoagulation due to DVT. Had EF of approximately 35% and underwent catheter ablation of all 4 pulmonary veins, left atrial posterior wall, SVC, and CTI due to history of a flutter. Was maintained on amiodarone for approximately 1 year after procedure. Cardiology note from 04/24/2024 ind icates pt had no recurrence of AFib/flutter since ablation. In the ED pt was febrile up to 1 1, tachycardic up to 172, tachypneic up to 30, with soft BP as low as 105/36. Labs were significant for leukocytosis of 13.4, POC 212, lactic acid 2.7 with repeat 1.8, and initial troponin 19.3. Stable H&H. No significant electrolyte abnormalities. Renal and hepatic function baseline. UA negative for UTI. CT of abdomen and pelvis found cardiomegaly and small pericardial effusion, but no inflammatory process or acute abdomen. EKG demonstrated AFib with RVR of 125 and RBBB. Pt was treated with IVF, acetaminophen, Zosyn, metoprolol 5 mg IV x3, diltiazem 5 mg IV, and started on Cardizem drip. Pt will be admitted to the hospital for for treatment and further evaluation of AFib with RVR requiring diltiazem drip. Hospital course: 69-year-old female with a PMH significant for paroxysmal AFib/flutter s/p ablation 05/06/21 on Eliquis, asthma, HTN, HLD, insulin-dependent type 2 diabetes, peripheral neuropathy, hx of DVT, and thyroid carcinoma s/p thyroidectomy with resultant hypothyroidism who presents to the ED with?after syncopal episode at home. Pt will be admitted to the hospital for for treatment and further evaluation of AFib with RVR requiring diltiazem drip- Atrial flutter with rapid ventricular response in the setting of GI symptoms, convereted normal sinus rhythm,also she was off her meropolol might have conrtibuted to above. seen by cardiology recomended to add metoprolol 25 mg qd. symptoms of gasteroenteritis seems improved spontaneously with supportive care, likely viral: ct abd ,cxr and ua negative . blood culture neg @24hrs.leucocytosis resolved , fever resolved.respiratory viral panel negative. patient syncope episode , acute lactic acidosis : seems related to Gi volume loss and afib : patient improved with hydration and po intake , tele seems fine. no orthostasis . echo ef seems fine. htn : blood pressure flactauting : adjusted lisinopril to 5 mg po qd since metoprolol added 25 mg qd (also has recent gi volume loss). moniter bp outpatient if needed her current bp meds can be adjusted outpatient. plan: adjusted lisinopril to 5 mg po qd since metoprolol added 25 mg qd. follow up with pcp and her cardiology outpatient. patient to follow her pcp, encouraged for po hydration and intake. Above management discussed with the patient in detail length she understand and in agreement with the above plan, time spent 40 minutes . Time Attestation Total time managing care of this patient today: 40 mintues. Discharge Coordination Time (in mins): 40 min Quality: Safe Use of Opioids Does Pt have an Active Cancer Diagnosis on the Problem List?: No Quality: Stroke Does the patient have a stroke diagnosis?: No Physical Exam Vital Signs: Vital Signs: Last Vital Signs Temp 97.4 F 07/11/24 08:00 Pulse 58 07/11/24 09:09 Resp 12 07/11/24 08:00 BP 162/69 H 07/11/24 09:09 Pulse Ox 96 07/11/24 08:00 O2 Del Method Room Air 07/11/24 08:00 O2 Flow Rate 2 07/09/24 12:52 BMI result Body Mass Index 32.3 Appearance: Alert.? Oriented X3.? cvs: rrr, [id number] . res: clear to auscultation ,no rhonchii or wheezing abd: no rebound or guarding ,nt, bs present. ext pulses present , no cyanosis . neuro: axo3 , nonfocal. DS: Data Data Completed and Pending Labs on day of discharge: Laboratory Results - last 24 hr 07/09/24 07/10/24 07/10/24 12:45 16:28 20:15 POC Glucose 149 H 197 H Lactic Acid 2.7 H* 07/11/24 07/11/24 07:16 11:14 POC Glucose 139 H 164 H Lactic Acid Preliminary micro results at discharge 07/09/24 13:09 Blood Culture - Preliminary Blood - Venous No growth after 24 hours. 07/09/24 12:48 Blood Culture - Preliminary Blood - Venous No growth after 24 hours. Imaging Chest x-ray: Radiologist's impression: ITS Impressions Abdomen/Pelvis CT 07/09/24 14:22 IMPRESSION: Cardiomegaly and small pericardial effusion. No inflammatory process is identified in the abdomen or pelvis. Electronically signed by: Kofi Ohara MD 07/09/2024 03:06 PM [facility] Discharge Plan Discharge Anticipated Discharge Date/Time: 07/11/24 11:12 Patient Disposition: Home, Self-Care Discharge Diagnosis: viral gastroenteritis, afib rvr , syncope Referrals: Jo Luna MD [Primary Care Provider] - 1 Week Discharge Medications: New metoprolol succinate 25 mg Tablet Extended Release 24 Hr 25 mg PO DAILY Qty: 90 0RF Protocol: Hold for SBP/HR < HOLD for SBP < : 90 HOLD for HR < : 60 Continued (DME) lancets [OneTouch Delica Plus Lancet] 33 gauge misc See Rx Instructions .ROUTE .COMPLEX Qty: 100 0RF Dose Instruction: USE TO TEST BLOOD SUGAR FOUR TIMES DAILY Rx Instructions: USE TO TEST BLOOD SUGAR FOUR TIMES DAILY ferrous sulfate 325 mg (65 mg iron) tablet 325 mg PO DAILY 90 Days Qty: 90 1RF (DME) blood pressure test kit-large Kit See Rx Instructions .Route Qty: 1 0RF Rx Instructions: As directed albuterol sulfate [Ventolin HFA] 90 mcg/actuation HFA aerosol inhaler 2 puff inhalation Q6H PRN (Reason: shortness of breath or wheezing) 30 Days Qty: 8 1RF rosuvastatin 40 mg tablet 40 mg PO DAILY 90 Days Qty: 90 2RF (DME) blood-glucose meter [[employer] Ultra2 Meter] [facility] See Rx Instructions .Route Qty: 1 0RF Rx Instructions: As directed test 4 times a day (DME) air conditioner See Rx Instructions .Route .MEDSUPPLY Qty: 1 0RF Rx Instructions: As directed (DME) incontinence pad, liner, disp Pad See Rx Instructions .Route Qty: 120 11RF Rx Instructions: Use 1 pad every 6 hours as needed (DME) wipes flushable See Rx Instructions .Route .MEDSUPPLY Qty: 240 11RF Rx Instructions: As directed (DME) Dexcom G7 Jointer Operator [facility] See Rx Instructions .Route Qty: 1 0RF Rx Instructions: As directed (DME) lancets [FreeStyle Lancets] 28 gauge [facility] See Rx Instructions .Route Qty: 100 4RF Rx Instructions: As directed test 4X a day (DME) Dexcom G7 Sensor Device See Rx Instructions .Route Qty: 3 4RF Rx Instructions: As directed change every 10 days cholecalciferol (vitamin D3) [Vitamin D3] 50 mcg (2,000 unit) capsule 50 mcg PO DAILY Qty: 28 3RF (DME) OneTouch Ultra Test Strip See Rx Instructions .ROUTE .COMPLEX Qty: 100 4RF Dose Instruction: USE TO TEST BLOOD SUGAR FOUR TIMES PER DAY Rx Instructions: USE TO TEST BLOOD SUGAR FOUR TIMES PER DAY (DME) nebulizers Misc See Rx Instructions .Route Qty: 1 0RF Rx Instructions: As directed levothyroxine 137 mcg tablet 137 mcg PO DAILY@0600 insulin degludec 100 unit/mL (3 mL) insulin pen 22 unit subcut DAILY Trulicity 4.5 mg/0.5 mL pen injector 4.5 mg subcut TH metformin 500 mg tablet extended release 24 hr 1,000 mg PO DAILY diclofenac sodium [Arthritis Pain (diclofenac)] 1 % gel 2 g topical QID PRN (Reason: pain) 30 Days Qty: 100 0RF Rx Instructions: apply to single elbow, wrist or hand; for hand includes palm/fingers/back of hand (DME) balance See Rx Instructions .Route .MEDSUPPLY Qty: 1 0RF Rx Instructions: As directed insulin lispro [Humalog KwikPen Insulin] 100 unit/mL insulin pen 5 unit subcut DAILY 90 Days Qty: 4.5 4RF Changed lisinopril 10 mg tablet 5 mg PO DAILY 90 Days Qty: 90 2RF Discharge Orders: Discharge Order (Routine); Ordered 07/11/24 Ordered By: Alka Wilson Diet: Advance to usual diet Activity on Discharge: As tolerated Stand Alone Forms: Patient Portal Discharge page Print Language: Niuean Care Plan Goals: 69-year-old female with a PMH significant for paroxysmal AFib/flutter s/p ablation 05/06/21 on Eliquis, asthma, HTN, HLD, insulin-dependent type 2 diabetes, peripheral neuropathy, hx of DVT, and thyroid carcinoma s/p thyroidectomy with resultant hypothyroidism who presents to the ED with?after syncopal episode at home. Pt will be admitted to the hospital for for treatment and further evaluation of AFib with RVR requiring diltiazem drip- Atrial flutter with rapid ventricular response in the setting of GI symptoms, convereted normal sinus rhythm,also she was off her meropolol might have conrtibuted to above. seen by cardiology recomended to add metoprolol 25 mg qd. symptoms of gasteroenteritis seems improved spontaneously with supportive care, likely viral: ct abd ,cxr and ua negative . blood culture neg @24hrs. patient syncope episode , acute lactic acidosis : seems related to Gi volume loss and afib : patient improved with hydration and po intake , tele seems fine. no orthostasis . echo ef seems fine. patient to follow her pcp, encouraged for po hydration and intake. htn : blood pressure flactauting : adjusted lisinopril to 5 mg po qd since metoprolol added 25 mg qd (also has recent gi volume loss). moniter bp outpatient if needed her current bp meds can be adjusted outpatient. Health Concerns: as above. Plan of Treatment: adjusted lisinopril to 5 mg po qd since metoprolol added 25 mg qd. follow up with pcp and her cardiology outpatient. Assessment: as above.
[2024-07-11 12:00] VITALS: BP 167/70; PULSE 60; RESP 18; TEMP 36.1; O2SAT 98
== END 2024-07-11 14:00 | disposition home or self-care (01) | DRG 309 ==
LOC: HO.ED 13:31 → HO.EDOVER 17:40 → HO.IMC 07-10 07:46
PROVIDERS: Admitting Provider Student in an Organized Health Care Education/Training Program; Emergency Provider Student in an Organized Health Care Education/Training Program; PCP Internal Medicine; Visit Provider Internal Medicine
DX: I48.0 Paroxysmal atrial fibrillation (principal); E87.21 Acute metabolic acidosis; A08.4 Viral intestinal infection, unspecified; I48.92 Unspecified atrial flutter; I42.9 Cardiomyopathy, unspecified; E89.0 Postprocedural hypothyroidism; E11.42 Type 2 diabetes mellitus with diabetic polyneuropathy; J45.909 Unspecified asthma, uncomplicated; Z20.822 Contact with and (suspected) exposure to COVID-19; Z86.718 Personal history of other venous thrombosis and embolism; Z85.850 Personal history of malignant neoplasm of thyroid; Z79.4 Long term (current) use of insulin; Z79.84 Long term (current) use of oral hypoglycemic drugs; Z79.85 Long-term (current) use of injectable non-insulin antidiabetic drugs; Z79.890 Hormone replacement therapy; Z79.899 Other long term (current) drug therapy
CPT/HCPCS: 0241U; 36415; 71045; 74177; 80048; 80053; 81003; 82947; 83605; 84484; 85025; 85027; 85610; 87040; 87633; 93005; 93306; 97161; 99285; J0131; J2543; Q9967

== ENCOUNTER → 2024-07-09 12:36 | Outpatient (BNV) | payer OTHER, SELFPAY | PROVIDERS: Admitting Provider Student in an Organized Health Care Education/Training Program; Emergency Provider Student in an Organized Health Care Education/Training Program; PCP Internal Medicine; Visit Provider Internal Medicine | DX: R94.31 Abnormal electrocardiogram [ECG] [EKG] (principal) | CPT/HCPCS: 93010 ==

== ENCOUNTER 2024-07-09 17:38 | Outpatient (BNV) | payer OTHER, SELFPAY | END 2024-07-10 07:00 | PROVIDERS: Admitting Provider Student in an Organized Health Care Education/Training Program; Emergency Provider Student in an Organized Health Care Education/Training Program; PCP Internal Medicine; Visit Provider Internal Medicine | DX: I36.1 Nonrheumatic tricuspid (valve) insufficiency (principal); I42.2 Other hypertrophic cardiomyopathy; R94.31 Abnormal electrocardiogram [ECG] [EKG] | CPT/HCPCS: 93010; 93306 ==

== ENCOUNTER → 2024-07-09 17:38 | Outpatient (BNV) | payer OTHER, SELFPAY | PROVIDERS: Admitting Provider Student in an Organized Health Care Education/Training Program; Emergency Provider Student in an Organized Health Care Education/Training Program; PCP Internal Medicine; Visit Provider Student in an Organized Health Care Education/Training Program | DX: I48.92 Unspecified atrial flutter (principal); R55 Syncope and collapse; K52.9 Noninfective gastroenteritis and colitis, unspecified | CPT/HCPCS: 99223; 99231; 99239 ==

== ENCOUNTER → 2024-07-09 17:38 | Outpatient (BNV) | payer OTHER, SELFPAY | PROVIDERS: Admitting Provider Student in an Organized Health Care Education/Training Program; Emergency Provider Student in an Organized Health Care Education/Training Program; PCP Internal Medicine; Visit Provider Internal Medicine | DX: I48.92 Unspecified atrial flutter (principal); I42.9 Cardiomyopathy, unspecified | CPT/HCPCS: 99223 ==

== ENCOUNTER 2024-07-14 08:43 | Outpatient (AMB) | payer OTHER, SELFPAY ==
--- NOTE | 2024-07-14 09:10 | A.OFFPC_ITS ---
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: Teacher Emotionally Impaired Name: Jo Montiel MD Information Interpreted: non-clinical & clinical Accompanied by: Self / Same As Patient Allergies empagliflozin [From JARDIANCE] Allergy (Intermediate, Verified 07/14/24 09:38) ITCHY/RASH JARDIANCE Allergy (Intermediate, Uncoded 07/14/24 09:38) pruritus Medication List - Last Reconciled 07/14/24 by Jo Montiel MD [air conditioner As directed] [balance As directed] blood pressure test kit-large As directed blood sugar diagnostic (ClearTaxuch Ultra Test strips) USE TO TEST BLOOD SUGAR FOUR TIMES PER DAY blood-glucose meter (Universal [employer]ensors Ultra2 Meter) As directed test 4 times a day blood-glucose meter,continuous (fanatix G7 Biomedical Repair Technician) As directed blood-glucose sensor (fanatix G7 Sensor device) As directed change every 10 days cholecalciferol (vitamin D3) (Vitamin D3) 50 mcg PO DAILY diclofenac sodium 1% (Arthritis Pain (diclofenac)) 2 grams topical QID PRN 30 days dulaglutide (Trulicity) 4.5 mg subcut TH ferrous sulfate 325 mg PO DAILY 90 days incontinence pad, liner, disp Use 1 pad every 6 hours as needed insulin degludec 22 units subcut DAILY insulin lispro (Humalog KwikPen (U-100) Insulin) 5 units (0.05 mL) subcut DAILY 90 days lancets (ClearTaxuch Delica Plus Lancet) USE TO TEST BLOOD SUGAR FOUR TIMES DAILY lancets (FreeStyle Lancets) As directed test 4X a day levothyroxine 137 mcg PO DAILY@0600 lisinopril 5 mg (1/2 x 10 mg) PO DAILY 90 days metformin ER 1,000 mg PO DAILY metoprolol succinate ER 25 mg See Protocol PO DAILY nebulizers As directed rosuvastatin 40 mg PO DAILY 90 days Ventolin HFA 90 mcg/actuation (albuterol sulfate) 2 puffs inhalation Q6H PRN 30 days NS [wipes flushable As directed] Tobacco use date assessed: 01/13/25 Fall risk assessment: 1 Fall in past year Last assessed Fall Risk: 07/14/24 Dental Screening Dental Screen Date: 07/14/24 Did you have a dental visit in the last 12 months?: No Did you have a dental problem in the last 6 months where you did not have access to dental care?: No Was dental information given to patient?: Patient has dentist HPI HPI Comments History of Present Illness Details Malawian-speaking patient that I did translate. The patient is a 69-year-old female presenting for her physical exam. She was recently hospitalized and discharged 07/11/2024 due to atrial fibrillation with rapid ventricular response. Had echocardiogram done showing grade 3 severe diastolic dysfunction and does follows with cardiology for her cardiomyopathy once a year. Has no recent appointment with them and I will refer her to them again due to this matter. She has a history of mild persistent asthma that requires albuterol solution and will benefit from having a nebulizer machine. Historically, she has experienced mild asthma, which has been persistent. Although stable, her asthma has necessitated consistent use of a nebulizer. The recent necessity for pneumonia vaccination was noted and will be given today. Last diabetic eye exam was last year. Has mammogram was last year. No need for Pap smear due to hysterectomy for benign reasons and age. Colonoscopy done 2017 with poor prep and will be refer through open access for evaluation of another colonoscopy. Needs Tdap vaccine but declines it today. Also complains of bilateral knee pain due to osteoarthritis and would like a referral for ortho.- Mammogram completed last year. - None mention of prior DEXA scan and wi ll be order. - Preparation for pneumonia vaccination discussed. - Colonoscopy pending future completion. [facility] Medical History Hypothyroidism Asthma Pericardial effusion Pneumonitis Pleural effusion Hypoglycemia unawareness associated with type 2 diabetes mellitus Post-surgical hypothyroidism [facility] (current) use of insulin Postsurgical hypothyroidism Thyroid cancer Dyslipidemia Essential hypertension Hyperparathyroidism Vitamin D deficiency Obesity (BMI 30-39.9) Diabetes type 2, uncontrolled Surgical History Hx of colonoscopy Hx of total thyroidectomy Hx of hysterectomy Family History Father No problems noted. Mother Arthritis Social History Household Members: Family Housing: House Do you presently have visiting nurse or other home services: Yes (SCALE BALANCER) Alcohol intake: never Patient Tobacco Use Status: Never used Tobacco e-Cigarette/Vaping Use: Never Used Second Hand Smoke Exposure: No service: No Current occupational status: disabled Cognitive needs: No Hearing needs: No Vision needs: No Questionnaire PHQ-9 Over the last 2 weeks, how often have you been bothered by any of the following problems? 1. Little interest or pleasure in doing things: not at all 2. Feeling down, depressed, or hopeless: not at all 3. Trouble falling or staying asleep, or sleeping too much: not at all 4. Feeling tired or having little energy: not at all 5. Poor appetite or overeating: not at all 6. Feeling bad about yourself - or that you are a failure or have let yourself or your family down: not at all 7. Trouble concentrating on things, such as reading the newspaper or watching television: not at all 8. Moving or speaking so slowly that other people could have noticed. Or the opposite - being so fidgety or restless that you have been moving around a lot more than usual: not at all 9. Thoughts that you would be better off or of hurting yourself in some way: not at all Total score: 0 Depression Screening Interpretation: Negative Depression Screening Done: Yes 94301 - PHQ-9 Billing: Yes Source: Developed by Drs. Kofi Arrington, Tracy Rowe, Al Kulkarni and colleagues, with an educational bobby from [employer]. Thrive Questionnaire Date Thrive assessed: 07/14/24 I am a: Patient What is your living situation today?: I have a steady place to live Within the past 12 months, did the food you bought not last and you didn't have the money to get more?: I choose not to answer this question Within the past 12 months, did you worry whether your food would run out before you got money to buy more?: I choose not to answer this question Do you have trouble paying for medicines?: I choose not to answer this question Do you have trouble getting transportation to medical appointments?: I choose not to answer this question Do you have trouble paying your heating and electricity bill?: I choose not to answer this question Do you have trouble taking care of your child, family member or friend?: I choose not to answer this question Do you have trouble with day-to-day activities such as bathing, preparing meals, shopping, managing finances, etc.?: I choose not to answer this question Are you currently unemployed and looking for a job?: I choose not to answer this question Are you interested in more education?: I choose not to answer this question Please select the resources that you would like help with: None Currently or been in a relationship where the following occur: I choose not to answer THRIVE Score: 0 AUDIT C Alcohol Use Questionnaire (AUDIT-C) 1. How often do you have a drink containing alcohol?: Never Total Score: 0 Score Reviewed/Action Taken: No DIVINA-7 AMB Questionnaire DIVINA-7 Date DIVINA - 7 assessed: 07/14/24 Feeling nervous, anxious, or on edge: 0 = Not at all Not being able to stop or control worryin = Not at all Worrying too much about different things: 0 = Not at all Trouble relaxin = Not at all Being so restless that it is hard to sit still: 0 = Not at all Becoming easily annoyed or irritable: 0 = Not at all Feeling afraid as if something awful might happen: 0 = Not at all Total DIVINA-7 score (0-4 normal; 5-9 mild; 10-14 moderate; 15-21 severe): 0 Source: Developed by Drs. Kofi Arrington, Tracy Rowe, Al Kulkarni and colleagues, with an educational bobby from [employer]. DIVINA-7 Assessment Billing DIVINA-7 Assessment Tool: DIVINA-7 Assessment 09422 Review of Systems Const All systems reviewed & are unremarkable except as noted in HPI and below Card Denies chest pain at rest, Denies chest pain with activity, Denies edema, Denies irregular heart rhythm, Denies claudication, Denies dyspnea, Denies dyspnea on exertion, Denies orthopnea, Denies paroxysmal nocturnal dyspnea and Denies slow heart rate Resp Denies cough, Denies dyspnea and Denies dyspnea on exertion GI Denies abdominal pain, Denies change in bowel habits, Denies excessive flatus, Denies nausea and Denies vomiting Neuro Denies lack of coordination Physical exam (Primary Care) Vital Signs: Last Vital Signs BP 136/80 07/14/24 09:11 BMI result Body Mass Index 32.5 BMI Assessment/Plan discussion: High BMI High, discussed plan: lifestyle, weight reduction, dietary and physical activity Tobacco/Smoking Status: Tobacco use Status Tobacco use date assessed 07/14/24 07/14/24 09:15 Patient Tobacco Use Status Never used Tobacco 07/14/24 09:15 e-Cigarette/Vaping Use Never Used 07/14/24 09:15 PHQ-9: PHQ-9 Score PHQ-9: Total score 0 07/14/24 10:02 Depression Screening Interpretation: Negative Thrive Assessment: Date of Thrive Assessment Date Thrive assessed 07/14/24 07/14/24 09:15 Currently or been in a relationship where the following occur: I choose not to answer HENMT Head: Yes normal to inspection, Yes normocephalic and Yes atraumatic Ears: external ears normal Eyes General: appearance normal, both eyes and all related structures Eyelids: Yes eyelids normal Conjunctivae: conjunctivae normal Neck Neck: Yes normal visual inspection and Yes supple Resp Effort & Inspection: normal respiratory effort Auscultation: clear to auscultation bilaterally Cardio Jugular venous distension: no JVD Rate: regular rate Rhythm: regular rhythm Heart sounds: S1 normal heart sound present and S2 normal heart sound present GI Inspection: Yes normal to inspection Palpation (GI): Soft to palpation and nontender Auscultation: normal bowel sounds Skin General skin exam: no rashes or lesions noted Neuro General: no focal motor deficits Extrem General: Yes full ROM Psych Appearance: grossly normal Office Procedures Flu Questionnaire Does the patient have a severe egg allergy?: No Results AMB Hemoglobin A1c AMB Hemoglobin A1c 8.0 % Last Edit by LATASHA Craig on 07/14/24 09:1 8 Immunizations Fluarix Triv [id number] (PF) 45 mcg (15 mcg x 3)/0.5 mL IM syringe Performing Provider: Jo Montiel MD [facility] Documented (not given) by: LATASHA Craig on 07/14/24 09:17 Reason Not Given: Patient Refused pneumoc 20-shayy conj-dip cr(PF) 0.5 mL IM syringe Performing Provider: Jo Montiel MD [facility] Administered by: LATASHA Craig on 07/14/24 10:02 Dose Route Admin Location Dispensed Lot Number Expiration Date NDC Auto Body Customizer 0.5 mL IM Left Deltoid 0.5 mL [id number] 09/30/25 [id number] WYETH/PFIZER VIS Given Date VIS Provided VIS Publication Date 07/14/24 Single Vaccine 21 Eligibility Eligibility Date Funding Source Not [facility] Eligible 07/14/24 Private Results Reviewed Results Reviewed: Laboratory Last Values Hgb A1c (Clinic) 8.0 % (4.0-6.0) H 07/14/24 09:16 Coding Level of Care Code Est Pt Level 3 (13952) Est Pt Prev Care >65y(08118) Diagnoses Physical exam Z00.00 Diabetes mellitus, with long-term current use of insulin E11.9; Z79.4 Atrial fibrillation with RVR I48.91 Cardiomyopathy I42.9 Mild intermittent asthma without complication J45.20 Asthma severity: mild Asthma persistence: intermittent Asthma complication type: uncomplicated Additional Codes DIVINA-7 Assessment Billing - DIVINA-7 Assessment Tool: DIVINA-7 Assessment 68394 ([id number]) PHQ-9 - 19520 - PHQ-9 Billing: Yes ([id number]) Time Spent (min) 35 Assessment & Plan Assessment & Plan (1) Physical exam: Code(s): Z00.00 - Encounter for general adult medical examination without abnormal findings Category: Medical (2) Diabetes mellitus, with long-term current use of insulin: Code(s): E11.9 - Type 2 diabetes mellitus without complications; 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.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 - Evaluation of colic symptoms with a plan for further examination and treatment as necessary. - Asthma management continuation, including the use of a nebulizer. - Scheduling and administration of pneumonia vaccination. - Consideration of ordering DEXA scan due to absence of previous testing. Patient was informed and verbally consented to the use of an ambient scribe for clinic note documentation during this visit. I discussed with the patient the importance of maintaining adherence to her current atrial fibrillation management plan and the potential need for adjustments based on future examinations. We considered upcoming health maintenance steps, including the pneumonia vaccination. The patient expressed acknowledgment of the need for a DEXA scan due to the absence of previous examinations in this regard. Follow-up will be necessary for asthma management, and I provided reassurance regarding the consistent use of her nebulizer to manage symptoms effectively. Orders: Orders AMB Hemoglobin A1c Today E11.9 - Type 2 diabetes mellitus without complications, Z79.4 - [facility] (current) use of insulin Lipid Panel 4 Months E78.5 - Hyperlipidemia, unspecified Microalbumin, Random (w Creat) 4 Months R80.9 - Proteinuria, unspecified Vitamin D 25-OH Total 4 Months E55.9 - Vitamin D deficiency, unspecified Influenza [id number] Immunization Today Z23 - Encounter for immunization XR DEXA axial skeleton Today Z78.0 - Asymptomatic menopausal state NT-proBNP 4 Months I42.9 - Cardiomyopathy, unspecified Comprehensive [place]. Panel Fast 4 Months I42.9 - Cardiomyopathy, unspecified Thyroid Stimulating Hormone 4 Months E89.0 - Postprocedural hypothyroidism Free T4 (Free Thyroxine) 4 Months E89.0 - Postprocedural hypothyroidism Pneumococcal 20 Immunization Today Z23 - Encounter for immunization Referrals Cardiology Referral I42.9 - Cardiomyopathy, unspecified, I48.92 - Unspecified atrial flutter Open Access Screening Colonoscopy Referral Z12.12 - Encounter for screening for malignant neoplasm of rectum Orthopedics Referral M17.0 - Bilateral primary osteoarthritis of knee Patient Instructions: - Continue current atrial fibrillation management plan and report any changes. - Use the nebulizer as directed for asthma. - Prepare for and attend scheduled pneumonia vaccination. - Await scheduling for a DEXA scan after confirmation. - Ensure communication plans due to lack of phone access.
[2024-07-14 09:11] VITALS: BP 136/80; BMI 32.5
== END 2024-07-14 10:03 | disposition home or self-care (01) ==
PROVIDERS: PCP Internal Medicine; Visit Provider Internal Medicine
DX: Z00.00 Encounter for general adult medical examination without abnormal findings (principal); E11.9 Type 2 diabetes mellitus without complications; Z79.4 Long term (current) use of insulin; I48.91 Unspecified atrial fibrillation; I42.9 Cardiomyopathy, unspecified; J45.20 Mild intermittent asthma, uncomplicated; Z23 Encounter for immunization

== ENCOUNTER → 2024-07-14 08:43 | Outpatient (BNVA) | payer OTHER, SELFPAY | PROVIDERS: PCP Internal Medicine; Visit Provider Internal Medicine | DX: Z00.00 Encounter for general adult medical examination without abnormal findings (principal); E11.9 Type 2 diabetes mellitus without complications; I48.91 Unspecified atrial fibrillation; I42.9 Cardiomyopathy, unspecified; J45.20 Mild intermittent asthma, uncomplicated; E89.0 Postprocedural hypothyroidism; E55.9 Vitamin D deficiency, unspecified; R80.9 Proteinuria, unspecified; E78.5 Hyperlipidemia, unspecified; Z23 Encounter for immunization; Z79.4 Long term (current) use of insulin; Z78.0 Asymptomatic menopausal state | CPT/HCPCS: 83036; 90471; 90472; 90677; 96127; 99212; 99397 ==

== ENCOUNTER 2024-07-16 09:23 | Outpatient (AMB) | payer OTHER, SELFPAY ==
--- NOTE | 2024-07-16 07:42 | A.OFFVIS_ITS ---
Vital Signs 07/16/24 09:29 Height 5 ft 1 in Weight 171 lb 15.369 oz BMI 32.5 BP 134/82 Blood Pressure Location Rt brachial Position Sitting Pulse 52 Pulse Source Pulse Oximeter Intake Visit Reasons: T2DM Intake Note: Patient presents today for a follow-up on Type 2 Diabetes Mellitus: Last Diabetic eye exam was on: 05/2023 Last Podiatry exam was on: Does not see a Washer Off Most recent HbA1c: 8.5%, 05/27/2024 Random Glucose- 131 mg/dL, Today Food Taster Required: Yes Food Taster Language: Dance Master Services: Food Taster Present Food Taster Name: LATASHA Zapata/DINAH OVIEDO Information Interpreted: non-clinical & clinical Accompanied by: Self / Same As Patient Allergies empagliflozin [From JARDIANCE] Allergy (Intermediate, Verified 07/16/24 09:27) ITCHY/RASH JARDIANCE Allergy (Intermediate, Uncoded 07/16/24 09:27) pruritus HPI Comments Details: 69 yo female today for follow-up visit for diabetes management She is also followed by Dr. Douglas for thyroid cancer who last saw her in June with f/u scheduled. She was seen by Sabra MEJIA in April and by myself in May at which time her A1c was 8.5%. Hemoglobin A1c 07/14/2024 was 8%. Dexcom average glucose: [ 184] 14 day continuous glucose monitor report reviewed Glucose Managment indicator [ ] % Days with CGM data [ ] % TIme in ranges: Fourteen % very high (above 250) 35 % high ?(181-250) 31 % in range ?(70-180] 0 % low (69-55) 0 % ?very low (below 54) Interpretation [highs after lunch and supper ] She has diabetes type 2 diagnosed 20 years ago. Current medication: Tresiba 14 units am Humalog 5 units tid with meals trulicity 4.5 mg Metformin ER 1000mg She tried Jardiance and Farxiga but had yeast infection. can't tolerate more metformin secondary to diarrhea at higher doses She has no known retinopathy, nephropathy, CAD, PVD microalbumin 11/22 Has neuropathy: c/o some numbness and diminished sensation On statin last LDL elevated (may be secondary to elevated TSH) History of + CVA Has SHOES HAND SEWER for assistance Last opth 08/2502/12/18 DEXA scan normal range BMD and T-score in all sites. Fibrosis-4 (Fib-4) Index for liver fibrosis (calculated on most recent lab work 11/22) [1.15 ] points Advanced fibrosis [excluded } Approximate Fibrosis stage Yusuf [ 0-1] *Use with caution in patients <35 or >65 years old, as the score has been shown to be less reliable in these patients. 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 Mother Arthritis Social History Household Members: Family Housing: House Do you presently have visiting nurse or other home services: Yes (SHOES HAND SEWER) Alcohol intake: never Patient Tobacco Use Status: Never used Tobacco e-Cigarette/Vaping Use: Never Used Second Hand Smoke Exposure: No service: No Current occupational status: disabled Cognitive needs: No Hearing needs: No Vision needs: No Physical Exam Vital Signs: Last Vital Signs Pulse 52 07/16/24 09:29 BP 134/82 07/16/24 09:29 BMI result Body Mass Index 32.5 Const Other: Absence of Cushingoid features. Absence of acromegalic features. Neck exam reveals nl size thyroid about 15 gms. No thyroid nodules palpable. No carotid bruits present. Lungs CTA. Heart S1 S2, Reg R/R. No M/R G. Skin exam reveals absence of vitiligo or acanthosis nigricans. No edema Visual exam of foot performed. No ulcerations or open lesions. No inter digit maceration or fissuring. No onychomycosis, no callouses. Sensation intact to monofilament exam. Vibratory sensation is normal with 128 Hz tuning fork. Pulse positive good cap refill Office Procedures Glucose Monitoring Details Details: see hpi Procedure code (CPT) selection complete Results Reviewed Results Reviewed: Laboratory Last Values Glucose (Clinic) 131 mg/dL (60-115) H 07/16/24 09:33 Assessment & Plan Assessment & Plan (1) Diabetes type 2, uncontrolled: Code(s): E11.65 - Type 2 diabetes mellitus with hyperglycemia Category: Medical Qualifiers: Glycemic state: with hyperglycemia Qualified Code(s): E11.65 - Type 2 diabetes mellitus with hyperglycemia Plan: 69-year-old type 2 diabetic with neuropathy with improving A1c. New dosing: Tresiba 14 units am Humalog 7 units tid with meals trulicity 4.5 mg Metformin ER 1000mg The patient had an opportunity to ask questions regarding treatment plan. The patient expressed understanding and agreement with the above treatment plan. The patient is aware they should contact our office by phone for worsening glucose readings or for any low blood sugars which may warrant a change in diabetes medication. Compliance is encouraged with medications and any followup testing/consults which may have been ordered. Patient was advised to have blood work that is ordered in the system and to keep her follow up with Dr. Guo for follow-up thyroid cancer. Orders: Orders AMB Glucose Monitoring Today E11.65 - Type 2 diabetes mellitus with hyperglycemia Medications: Changed From insulin lispro (Humalog KwikPen (U-100) Insulin) 5 units (0.05 mL) subcut DAILY 90 days 4.5 mL 4RF E11.9 - Type 2 diabetes mellitus without complications, Z79.4 - group home (current) use of insulin To insulin lispro (Humalog KwikPen (U-100) Insulin) 5 units before breakfast 7 units before lunch and dinner subcutaneously 3 times a day; 90 days 15 mL 4RF E11.9 - Type 2 diabetes mellitus without complications, Z79.4 - group home (current) use of insulin Patient Instructions: The patient was counseled to always carry a source of sugar and on the rule of 15's: Take 3 glucose tablets and repeat again in 15 minutes if blood sugar is not in normal range. Continue to repeat every 15 minutes until blood sugar is normal. The patient was counseled to achieve a target A1C of 7% (154 avg). Fasting blood sugars should be 90-130 in the morning and less than 180 two hours after meals. Reviewed the relationship between poor diabetic control and the development of complications. Check your feet daily looking for any signs of infection, ulceration and seek medical attention if this occurs. Break in shoes gradually and do not wear open-toed shoes or walk barefooted. Coding Level of Care Code Est Pt Level 4 (64228) Diagnoses Uncontrolled type 2 diabetes mellitus with hyperglycemia E11.65 Glycemic state: with hyperglycemia Time Spent (min) 35 Comment Time spent reviewing labs/provider notes, glucose,sensor reports, face to face, chart doc
[2024-07-16 09:29] VITALS: BP 134/82; PULSE 52; BMI 32.5
[2024-07-16 09:37] LABS: Glucose, Whole Blood 131 mg/dL (60-115)
== END 2024-07-16 09:53 | disposition home or self-care (01) ==
PROVIDERS: PCP Internal Medicine; Visit Provider Nurse Practitioner Adult Health
DX: E11.65 Type 2 diabetes mellitus with hyperglycemia (principal)
CPT/HCPCS: 99214

== ENCOUNTER 2024-07-16 09:55 | Outpatient (REF) | payer OTHER, SELFPAY ==
[2024-07-16 11:19] LABS: Free T4 (Free Thyroxine) 1.29 ng/dL (0.71-1.85)
[2024-07-17 09:33] LABS: Thyroglobulin <0.1 ng/mL; Thyroglobulin Antibodies <1 IU/mL (< or = 1)
[2024-08-06 01:08] LABS: Thyroglobulin Antibody 2 IU/mL (<=1); Thyroglobulin LC/MS/MS <0.4 ng/mL (Athyrotic: <0)
== END 2024-07-16 09:56 | disposition home or self-care (01) ==
LOC: HO.10HDL 09:55
PROVIDERS: Visit Provider Student in an Organized Health Care Education/Training Program
DX: E03.9 Hypothyroidism, unspecified (principal); C73 Malignant neoplasm of thyroid gland; E11.65 Type 2 diabetes mellitus with hyperglycemia; E11.40 Type 2 diabetes mellitus with diabetic neuropathy, unspecified; Z79.4 Long term (current) use of insulin; Z79.85 Long-term (current) use of injectable non-insulin antidiabetic drugs
CPT/HCPCS: 36415; 82947; 84432; 84439; 84443; 86800; 99212

== ENCOUNTER 2024-07-18 11:11 | Outpatient (AMB) | payer OTHER, SELFPAY ==
--- NOTE | 2024-07-18 11:42 | A.OFFPC_ITS ---
Vital Signs 07/18/24 11:44 Height 5 ft 1 in Weight 172 lb BMI 32.5 BP 120/66 Blood Pressure Location Lt brachial Position Sitting Pulse 51 Pulse Source Pulse Oximeter Temp 97.1 F Temp Source Skin Pulse Oximetry (%) 98 Oxygen Delivery Method Room Air Intake Visit Reasons: [place] [facility] [place] Intake Note: Patient is here for hospital discharge and TCM follow up. Patient was [place] [facility]. Production Broaching Machine Operator Required: Yes Production Broaching Machine Operator Language: Industrial Maintenance Repairer Helper Name: ([id number]) Information Interpreted: non-clinical & clinical Medical Advisor: Not Required per policy Accompanied by: Self / Same As Patient Allergies [email or web address] [From JARDIANCE] Allergy (Intermediate, Verified 07/18/24 11:44) ITCHY/RASH JARDIANCE Allergy (Intermediate, Uncoded 07/18/24 11:44) pruritus Tobacco use date assessed: 07/18/24 Fall risk assessment: 1 Fall in past year (07/11/24) Last assessed Fall Risk: 07/18/24 Dental Screening Dental Screen Date: 07/14/24 [facility] TCM TCM Information Date of Discharge 07/11/24 Discharged From [facility] Interactive Contact Date (Reference documentation from this date) 07/14/24 HPI Comments History of Present Illness Details 69 y/o female patient who presents to [facility] today for TCM. Pt was [place] [facility] [place] and discharged home 07/11/24 due to A-fib with RvR. Her PMH significant for paroxysmal AFib/flutter s/p ablation 05/06/21 on Eliquis, asthma, HTN, HLD, insulin-dependent type 2 diabetes, peripheral neuropathy, hx of DVT, and thyroid carcinoma s/p thyroidectomy with resultant hypothyroidism. New medications added: Metoprolol 25 mg daily. She is currently being followed [place] [facility] 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 Mother Arthritis Social History Household Members: Family Housing: House Do you presently have visiting nurse or other home services: Yes (HUM[employer] RESOURCES MANAGER [employer]FACTURING) Alcohol intake: never Patient Tobacco Use Status: Never used Tobacco e-Cigarette/Vaping Use: Never Used Second Hand Smoke Exposure: No service: No Current occupational status: disabled Cognitive needs: No Hearing needs: No Vision needs: No Questionnaire Thrive Questionnaire Date Thrive assessed: 07/14/24 I am a: Patient What is your living situation today?: I have a steady place to live Within the past 12 months, did the food you bought not last and you didn't have the money to get more?: I choose not to answer this question Within the past 12 months, did you worry whether your food would run out before you got money to buy more?: I choose not to answer this question Do you have trouble paying for medicines?: I choose not to answer this question Do you have trouble getting transportation to medical appointments?: I choose not to answer this question Do you have trouble paying your heating and electricity bill?: I choose not to answer this question Do you have trouble taking care of your child, family member or friend?: I choose not to answer this question Do you have trouble with day-to-day activities such as bathing, preparing meals, shopping, managing finances, etc.?: I choose not to answer this question Are you currently unemployed and looking for a job?: I choose not to answer this question Are you interested in more education?: I choose not to answer this question Please select the resources that you would like help with: None Currently or been in a relationship where the following occur: I choose not to answer THRIVE Score: 0 DIVINA-7 AMB Questionnaire DIVINA-7 Date DIVINA - 7 assessed: 07/14/24 Source: Developed by Drs. Kofi Arrington, Tracy Rowe, Al Kulkarni and colleagues, with an educational bobby from [employer]. Review of Systems Const All systems reviewed & are unremarkable except as noted in HPI and below Physical exam (Primary Care) Vital Signs: Last Vital Signs Temp 97.1 F 07/18/24 11:44 Pulse 51 07/18/24 11:44 BP 120/66 07/18/24 11:44 Pulse Ox 98 07/18/24 11:44 Oxygen Delivery Method Room Air 07/18/24 11:44 BMI result Body Mass Index 32.5 Tobacco/Smoking Status: Tobacco use Status Tobacco use date assessed 07/18/24 07/18/24 11:47 Patient Tobacco Use Status Never used Tobacco 07/18/24 11:42 e-Cigarette/Vaping Use Never Used 07/18/24 11:42 Thrive Assessment: Date of Thrive Assessment Date Thrive assessed 07/14/24 07/18/24 11:42 Currently or been in a relationship where the following occur: I choose not to answer Const General: cooperative, comfortable and no acute distress Nutritional Appearance: obese Orientation/consciousness: patient oriented x3 Resp Effort & Inspection: normal respiratory effort and able to speak in complete sentences Auscultation: clear to auscultation bilaterally, no crackles, no rales, no rhonchi and no wheezes Cardio Heart sounds: S1 normal heart sound present and S2 normal heart sound present Neuro General: patient oriented x3, gait normal and moves all extremities Psych Mental Status: mental status grossly normal Coding Level of Care Code TCM Mod MDM <= 14 Days Diagnoses Atrial flutter with rapid ventricular response I48.92 Time Spent (min) 20 Assessment & Plan Assessment & Plan (1) Atrial flutter with rapid ventricular response: Code(s): I48.92 - Unspecified atrial flutter Category: Medical Plan: Managed by Cardiology.
[2024-07-18 11:44] VITALS: BP 120/66; PULSE 51; TEMP 36.2; O2SAT 98; BMI 32.5
== END 2024-07-18 12:13 | disposition home or self-care (01) ==
PROVIDERS: PCP Internal Medicine; Visit Provider Nurse Practitioner Family
DX: I48.92 Unspecified atrial flutter (principal)

== ENCOUNTER → 2024-07-18 11:11 | Outpatient (BNVA) | payer OTHER, SELFPAY | PROVIDERS: PCP Internal Medicine; Visit Provider Nurse Practitioner Family | DX: I48.92 Unspecified atrial flutter (principal) | CPT/HCPCS: 99495 ==

== ENCOUNTER 2024-08-14 08:17 | Outpatient (REF) | payer OTHER, SELFPAY ==
--- NOTE | ~2024-08-14 | MM_ITS ---
EXAMINATION: DXA BONE DENSITY AXIAL HISTORY: Estrogen deficiency TECHNIQUE: [employer] Dual energy absorptiometry (DEXA) of the lumbar spine, total left hip, and femoral neck was performed. COMPARISON: Comparison is made with the prior examination dated 02/12/2018. FINDINGS: The bone mineral density of the lumbar spine is 1.263 with a T-score of 0.7, and a Z-score of 1.9. This represents a BMD change of -4.4% compared to the prior exam. This is statistically significant. The bone mineral density of the left total hip is 1.074 with a T-score of 0.5, and a Z-score of 1.6. This represents BMD change of -4.5% compared to the prior exam. This is statistically significant. The bone mineral density of the left femoral neck is 0.929 with a T-score of -0.8, and a Z-score of 0.5. This represents BMD change of -4.6% compared to the prior exam. MM/XR DEXA axial skeleton IMPRESSION: Based on bone mineral density, and according to World Health Organization (WHO) criteria, the diagnosis is consistent with normal bone mineral density. All bone density values are in grams per centimeter squared (g/cm2). Statistically, 68% of repeat scans fall within 1 SD (+/- 0.010 g/cm2 for AP spine L1-L4) and 1 SD (+/- 0.012 g/cm2 for femur total) FRAX is a trademark of the [employer] [place] for Metabolic Bone Disease, a World Health Organization (WHO) Collaborating Center. Electronically signed by: Kofi Ohara MD 08/14/2024 09:35 AM [facility]
--- OUTSIDE RECORDS SUMMARY | 2024-08-14 08:23 | XMS_ITS | Clinical Summary ---
Author Organization [employer] Address [address] [place] [address] [address] [place] [address] Care Team Providers Care Care Coordinator Name Role Phone Unavailable Primary Care Provider Unavailabl e Medications levothyroxine (Synthroid, Levoxyl) 88 MCG tabletIndications: Postablative hypothyroidism Take 1 tablet (88 mcg) by mouth before breakfast. Take one tab by mouth Sunday to Sunday and take 1/2 tablet by mouth Sunday 30 tablet 11 06/08/20 22 Active dulaglutide (Trulicity) 3 MG/0.5ML solution pen-injector inject (3MG) by subcutaneous route every week 4 each 11 10/26/19 23 Active amLODIPine (Norvasc) 5 MG tabletIndications: Essential hypertension Take 1 tablet (5 mg) by mouth in the morning. 90 tablet 1 10/27/19 23 Active rosuvastatin (Crestor) 40 MG tablet TAKE 1 TABLET BY MOUTH DAILY 90 tablet 1 01/26/20 23 Active Alcohol Swabs (B-D SINGLE USE SWABS REGULAR) pads USE TO CLEANSE SKIN BEFORE TESTING BLOOD SUGAR 4 TIMES A DAY 100 each 11 03/28/20 23 Active Lidocaine, Anorectal, 5 % cream APPLY TO AFFECTED AREA(S) ONCE DAILY NEEDED 60 g 2 06/08/20 23 Active insulin degludec (Tresiba FlexTouch) 100 UNIT/ML injectionIndicatio ns:Type 2 diabetes mellitus without complication, with long-term current use of insulin ([facility]) INJETAR 20 UNIDADES SUBCUTANEAS TEDDY VEZ AMANDA. 15 mL 11 06/08/20 23 Active lisinopril 10 MG tablet TAKE 1 TABLET BY MOUTH DAILY 28 tablet 3 06/28/20 23 Active Encounters Date Type Department Care Team Description 07/29/2024 Refill [facility] CHC MED & PEDS [address] [place] [address] Ganesh Alvarado MD 07/01/2024 Refill [facility] MED & PEDS [address] [place] [address] Ganesh Alvarado MD 06/04/2024 Refill [facility] MED & PEDS [address] [place] [address] Ganesh Alvarado MD from Last 3 Months Immunizations Name Administration Dates Next Due Moderna Covid-19 Vaccine 12+ 07/05/2021,11/10/19,10/12/2020 Moderna Covid-19 Vaccine 6+ Bivalent 07/21/2022 Social History Tobacco Use Types Packs/Day Years Used Date Smoking Tobacco: Never Assessed Comments Unknown Sex and Gender Information Value Date Recorded Sex Assigned at Female 05/01/2022 10:21 AM EDT Legal Sex Female 10:21 AM EDT Gender Identity Female 05/01/2022 10:21 AM EDT Sexual Orientation Straight 05/01/2022 10 :21 AM EDT Last Filed Vital Signs Vital Sign Reading Time Taken Comments Blood Pressure 118/60 04/17/2022 12:10 AM EDT Pulse 68 04/17/2022 12:10 AM EDT Temperature - - Respiratory Rate - - Oxygen Saturation - - Inhaled Oxygen Concentration - - Weight 86.8 kg (191 lb 6.4 oz) 04/17/2022 12:10 AM EDT Height 154.3 cm (5' 0.75 ) 04/17/2022 12:10 AM E DT Body Mass Index 36.46 04/17/2022 12:10 AM EDT Plan of Treatment Health Maintenance Due Date Last Done Comments CT Colonography 1957 Colonoscopy 1957 Colorectal Cancer Screening 1957 Depression Screening 1957 FIT DNA/Cologuard 1957 FIT 1957 FOBT 1957 SDOH Screening 1957 Sigmoidoscopy 1957 Alcohol/Substance Use Screening 1969 Tobacco Screening 1969 Hepatitis C Screening 1975 Zoster Vaccines (1 of 2) 2007 Pneumococcal Vaccine: 50+ Years (2 of 2 - PCV) 05/25/2011 05/25/2010 RSV Patients and Patients Aged 60 years or older (1 - Risk 60-74 years 1-dose series) 2017 DTaP/Tdap/Td Vaccines (2 - Td or Tdap) 01/24/2021 01/24/2011 Mammogram 05/04/2022 05/04/2020, 04/03, 02/28/2018 COVID-19 Vaccine ( season) 2024 07/21/2022, 07/05/2021, 11/09/2020, Additional history exists Influenza Vaccine (#1) 2024 2, 03/27/2011, 03/28/2010, Additional history exists Lipid Panel 05/25/2025 05/25/2020 HIB Vaccines Aged Out No longer eligi ble based on patient's age to complete this topic HPV Vaccines Aged Out No longer eligi ble based on patient's age to complete this topic Hepatitis A Vaccines Aged Out No long er eligible based on patient's age to complete this topic Hepatitis B Vaccines Aged Out No long er eligible based on patient's age to complete this topic IPV Vaccines Aged Out No longer eligi ble based on patient's age to complete this topic Meningococcal Vaccine Aged Out No mann gissell eligible based on patient's age to complete this topic RSV under 20 months Aged Out No longe r eligible based on patient's age to complete this topic Rotavirus Vaccines Aged Out No longer eligible based on patient's age to complete this topic Procedures Procedure Name Priority Date/Time Associated Diagnosis Comments ZZZ HISTORICAL LIPID PANEL Routine 05/25/2020 10:10 AM EST MAMMOGRAM GENERIC Routine 05/04/2020 9:0 6 AM EST from Last 3 Months or Most Recently Relevant to Health Maintenance Results * (ABNORMAL) LIPID PANEL (05/25/2020 10:10 AM EST) Cholesterol 186 mg/dL [facility] Comment: Desirable Cholesterol: ?less than 200 mg/dL Borderline High Cholesterol: ??200-239 mg/dL High Cholesterol: ? greater than 239 mg/dL HDL Cholesterol 41 mg/dL [facility] Comment: Desirable HDL: ??greater than 40 mg/dL ?? Note: This HDL assay may give artificially ? low results in patients with liver disease. LDL Cholesterol Calculated 127 mg/dl [facility] Comment: Desirable LDL: ? less than 100 mg/dL Near Optimal/Above Optimal LDL: ??110-129 mg/dL Borderline High LDL: ? 130-159 mg/dL High LDL: ?160-189 mg/dL Very High LDL: ? greater than or equal to ?190 mg/dL Triglycerides 94 mg/dL [facility] Comment: Desirable Triglyceride: ? less than 150 mg/dL Borderline High Triglyceride ??150-199 mg/dL High Triglyceride: ?200-499 mg/dL Very High Triglyceride: ? greater than or equal to ? 5OO mg/dL Thyroid Stimulating Hormone 0.40 0.32 - 4.0 uIU/mL [facility] Comment:TSH 3rd Generation ( [facility]) Alanine Aminotransferase 8 0 - 31 U/L [facility] Albumin Level 3.7 3.5 - 5.0 g/dL [facility] Alkaline Phosphatase 133(H) 39 - 117 U/L [facility] Anion Gap 14 12 - 20 [facility] Aspartate Amino Transferase 14 5 - 31 U/L [facility] Bilirubin Total 0.3 0.0 - 1.0 mg/dL [facility] Blood Urea Nitrogen 9 9 - 16 mg/dL [facility] Calcium 9.3 8.4 - 10.2 mg/dL [facility] Carbon Dioxide 31(H) 22 - 29 mmol/L [facility] Chloride 103 96 - 108 mmol/L [facility] Creatinine, Serum 0.83 0.5 - 1.4 mg/dL [facility] Estimated Glomerular Filt Rate >60 [facility] Comment: NOTE: ??For -Belarusian individuals, multiply the result ?by 210. ?? Chronic Kidney Disease: ??Estimated GFR < 60 mL/min/1.73m2 Severe Kidney Disease: ??Estimated GFR < 15 mL/min/1.73m2 Glucose Fasting 110(H) 60 - 99 mg/dL [facility] Comment: A fasting glucose from 100-125 mg/dl is considered impaired (pre-diabetes). Potassium 4.8 3.3 - 5.1 mmol/l [facility] Sodium 143 135 - 145 mmol/L [facility] Total Protein 6.9 6.5 - 8.0 g/dL [facility] Vitamin D 25-OH Total 50.3 >30 ng/mL [facility] Comment: Health Based Reference Values* ?? < 20 ??ng/mL ??Deficient 20-30 ng/mL ??Insufficient > 30 ??ng/mL ??Sufficient ?? *Maida RASHEED. N Engl J Med. 2007;357:266-280 ?? Care must be taken in interpreting Vitamin D results from different laboratories and methodologies. ??Published data demonstrated that results from patients undergoing hemodialysis may show a negative bias when tested with various automated 25-OH vitamin D assays when compared to LC-MS/MS. ?? When testing samples from patients whose predominant form of Vitamin D is Vitamin D2, such as patients receiving Vitamin D2 supplementation, results that are subtherapeutic should be confirmed with another method such as LC-MS/MS. Free T4 (Free Thyroxine) 1.32 0.71 - 1.85 ng/dL [facility] 05/25/2020 10:1 0 AM EST us Historical Provider HISTORICAL/NON ORDERABLE LABS Final Result [facility] [address] * Mammography Report 1 (05/04/2020 9:06 AM EST) Anatomical Region Laterality Modality Breast Bilateral Mammography 05/04/2020 9:06 AM EST Narrative 01/04/2021 1:40 PM EDT Refer to the Notes tab for result details [facility] Procedure: Mammography Report 1 Procedure Note Provider, MD Antonia - 09/23/2022 Refer to the Notes tab for result details [facility] Procedure: Mammography Report 1 Ganesh Alvarado MD IMG BI PROCEDURES Final Res ult from Last 3 Months or Most Recently Relevant to Health Maintenance Insurance [place] [phone] * Guarantor: Alee Amato Account Type Relation to Patient Date of Phone Billing Address Personal/Family Self [place] [address] [address]
--- OUTSIDE RECORDS SUMMARY | 2024-08-14 08:24 | XMS_ITS | Encounter Summary ---
Author Organization [employer] Address [address] [place] [address] [address]t [place] [address] Care Team Providers Care Overhauler Name Role Phone Unavailable Primary Care Provider Unavailabl e Reason for Visit * Reason Comments Med Refill Encounter Details Date Type Department Care Team ([facility] st Contact Info) Description 07/01/[address] [facility] CHC MED & PEDS [address] [place] [address] Ganesh Alvarado MD [address] [place] [address] Social History Tobacco Use Types Packs/Day Years Used Date Smoking Tobacco: Never Assessed Comments Unknown Sex and Gender Information Value Date Recorded Sex Assigned at Female 05/01/2022 10:21 AM EDT Legal Sex Female 10:21 AM EDT Gender Identity Female 05/01/2022 10:21 AM EDT Sexual Orientation Straight 05/01/2022 10 :21 AM EDT documented as of this encounter Plan of Treatment Not on file documented as of this encounter Visit Diagnoses Not on filedocumented in this encounter
--- OUTSIDE RECORDS SUMMARY | 2024-08-14 08:24 | XMS_ITS | Encounter Summary ---
Author Organization [employer] Address [address] [place] [address] [address]t [place] [address] Care Team Providers Care Animal Husbandry Worker Name Role Phone Unavailable Primary Care Provider Unavailabl e Reason for Visit * Reason Comments Med Refill Encounter Details Date Type Department Care Team ([facility] st Contact Info) Description 06/04/2024 Refill [facility] CHC MED & PEDS [address] [place] [address] Ganesh Alvarado MD [address] [place] [address] Social History Tobacco Use Types Packs/Day Years [...]
--- OUTSIDE RECORDS SUMMARY | 2024-08-14 08:24 | XMS_ITS | Encounter Summary ---
Author Organization [employer] Address [address] [place] [address] [address]t [place] [address] Care Team Providers Care Flight Attendant Name Role Phone Unavailable Primary Care Provider Unavailabl e Reason for Visit * Reason Comments Med Refill Encounter Details Date Type Department Care Team ([facility] st Contact Info) Description 04/09/2024 Refill [facility] CHC MED & PEDS [address] [place] [address] Ganesh Alvarado MD [address] [place] [address] Social History Tobacco Use Types Packs/Day Years [...]
--- OUTSIDE RECORDS SUMMARY | 2024-08-14 08:24 | XMS_ITS | Encounter Summary ---
Author Organization [employer] Address [address] [place] [address] [address]t [place] [address] Care Team Providers Care Environmental Attorney Name Role Phone Unavailable Primary Care Provider Unavailabl e Reason for Visit * Reason Comments Med Refill Encounter Details Date Type Department Care Team ([facility] st Contact Info) Description 04/10/2024 Refill [facility] CHC MED & PEDS [address] [place] [address] Ganesh Alvarado MD [address] [place] [address] Social History Tobacco Use Types Packs/Day Years [...]
--- OUTSIDE RECORDS SUMMARY | 2024-08-14 08:24 | XMS_ITS | Encounter Summary ---
Author Organization [employer] Address [address] [place] [address] 7t [place] [address] Care Team Providers Care Nremt Name Role Phone Unavailable Primary Care Provider Unavailabl e Reason for Visit * Reason Comments Med Refill Encounter Details Date Type Department Care Team ([facility] st Contact Info) Description 05/06/2024 Refill [facility] CHC MED & PEDS [address] [place] [address] Ganesh Alvarado MD [address] [place] [address] Social History Tobacco Use Types Packs/Day Years [...]
--- OUTSIDE RECORDS SUMMARY | 2024-08-14 08:24 | XMS_ITS | Encounter Summary ---
Author Organization [employer] Address [address] [place] [address] [address]t [place] [address] Care Team Providers Care Platen Builder Up Name Role Phone Unavailable Primary Care Provider Unavailabl e Reason for Visit * Reason Comments Med Refill Encounter Details Date Type Department Care Team ([facility] st Contact Info) Description 01/17/2024 Refill [facility] CHC MED & PEDS [address] [place] [address] Ganesh Alvarado MD [address] [place] [address] Social History Tobacco Use Types Packs/Day Years [...]
--- OUTSIDE RECORDS SUMMARY | 2024-08-14 08:24 | XMS_ITS | Encounter Summary ---
Author Organization [employer] Address [address] [place] [address] 7t [place] [address] Care Team Providers Care Vice President Underwriting Name Role Phone Unavailable Primary Care Provider Unavailabl e Reason for Visit * Reason Comments Med Refill Encounter Details Date Type Department Care Team (Late st Contact Info) Description 10/18/2023 Refill [facility] MEDICINE [address] [place] [address] Ganesh Alvarado MD [address] [place] [address] Social History Tobacco Use Types Packs/Day Years [...]
--- OUTSIDE RECORDS SUMMARY | 2024-08-14 08:24 | XMS_ITS | Encounter Summary ---
Author Organization [employer] Address [address] [place] [address] [address]t [place] [address] Care Team Providers Care Legal Technician Name Role Phone Unavailable Primary Care Provider Unavailabl e Reason for Visit * Reason Comments Med Refill Encounter Details Date Type Department Care Team ([facility] st Contact Info) Description 11/02/2023 Refill [facility] CHC MED & PEDS [address] [place] [address] Ganesh Alvarado MD [address] [place] [address] Social History Tobacco Use Types Packs/Day Years [...]
--- OUTSIDE RECORDS SUMMARY | 2024-08-14 08:24 | XMS_ITS | Encounter Summary ---
Author Organization [employer] Address [address] [place] [address] [address]t [place] [address] Care Team Providers Care Car Audio Installer Name Role Phone Unavailable Primary Care Provider Unavailabl e Reason for Visit * Reason Comments Med Refill Encounter Details Date Type Department Care Team ([facility] st Contact Info) Description 11/06/2023 Refill [facility] CHC MED & PEDS [address] [place] [address] Ganesh Alvarado MD [address] [place] [address] Social History Tobacco Use Types Packs/Day Years [...]
--- OUTSIDE RECORDS SUMMARY | 2024-08-14 08:25 | XMS_ITS | Encounter Summary ---
Author Organization [employer] Address [address] [place] [address] 7 [place] [address] Care Team Providers Care Writer Technical Publications Name Role Phone Ganesh Alvarado MD Primary Care Provider [phone] Reason for Visit * Reason Comments Med Refill Encounter Details Date Type Department Care Team (Late st Contact Info) Description 08/06/2023 Refill [facility] MEDICINE [address] [place] [address] Ganesh Alvarado MD [address] [place], [place] [id number] Social History Tobacco Use Types Packs/Day Years [...] Diagnoses Not on filedocumented in this encounter Care Teams Writer Technical Publications Relationship Specialty Start Date End Date Ganesh Alvarado MD [address] [place] [address] PCP - General Internal Medicine 12/21/17 09/05/23 documented as of this encounter
--- OUTSIDE RECORDS SUMMARY | 2024-08-14 08:25 | XMS_ITS | Encounter Summary ---
Author Organization [employer] Address [address] [place] [address] [address] [place] [address] Care Team Providers Care Molasses Feed Mixer Name Role Phone Ganesh Alvarado MD Primary Care Provider [phone] Reason for Visit * Reason Comments Med Refill Encounter Details Date Type Department Care Team (Late st Contact Info) Description 06/08/2023 Refill [facility] CHC MED & PEDS [address] [place] [address] Ganesh Alvarado MD [address] [place] [address] Social History Tobacco Use Types Packs/Day Years [...] on filedocumented in this encounter Care Teams Molasses Feed Mixer Relationship Specialty Start Date End Date Ganesh Alvarado MD [address] [place] [address] PCP - General Internal Medicine 12/21/17 09/05/23 documented as of this encounter
--- OUTSIDE RECORDS SUMMARY | 2024-08-14 08:25 | XMS_ITS | Encounter Summary ---
Author Organization [employer] Address [address] [place] [address] [address] [place] [address] Care Team Providers Care Leg Assembler Name Role Phone Unavailable Primary Care Provider Unavailabl e Reason for Visit * Reason Comments Med Refill Encounter Details Date Type Department Care Team ([facility] st Contact Info) Description 07/29/2024 Refill [facility] CHC MED & PEDS [address] [place] [address] Gaensh Alvarado MD [address] [place] [address] Social History Tobacco Use Types Packs/Day Years [...]
== END 2024-08-14 08:18 | disposition home or self-care (01) ==
LOC: HO.MAMMO 08:17
PROVIDERS: PCP Internal Medicine; Visit Provider Internal Medicine
DX: Z13.820 Encounter for screening for osteoporosis (principal); Z78.0 Asymptomatic menopausal state
CPT/HCPCS: 77080

== ENCOUNTER → 2024-08-14 08:45 | Outpatient (BNV) | payer OTHER, SELFPAY | PROVIDERS: PCP Internal Medicine; Visit Provider Radiology Diagnostic Radiology | DX: E28.39 Other primary ovarian failure (principal) | CPT/HCPCS: 77080 ==

== ENCOUNTER 2024-09-01 08:32 | Outpatient (AMB) | payer OTHER, SELFPAY ==
[2024-09-01 08:37] VITALS: BP 146/74; PULSE 61; O2SAT 96; BMI 32.9
--- NOTE | 2024-09-01 08:37 | A.OFFVIS_ITS ---
Vital Signs 3 09/01/24 08:37 Height 5 ft 1 in Weight 173 lb 15.115 oz BMI 32.9 BP 146/74 H Blood Pressure Location Lt brachial Position Sitting Pulse 61 Pulse Source Pulse Oximeter Pulse Oximetry (%) 96 Oxygen Delivery Method Room Air Intake Visit Reasons: Thyroid cancer Intake Note: Patient present today for Thyroid cancer office visit. Lighting Fixtures Decorator Required: Yes Lighting Fixtures Decorator Language: Hammer Heater Services: Lighting Fixtures Decorator Present Information Interpreted: non-clinical & clinical Accompanied by: Self / Same As Patient Allergies [email or web address] [From JARDIANCE] Allergy (Intermediate, Verified 09/01/24 08:42) ITCHY/RASH JARDIANCE Allergy (Intermediate, Uncoded 09/01/24 08:42) pruritus Medication List - Last Reconciled 09/01/24 by Madhuri Guo MD [air conditioner As directed] [balance As directed] blood pressure test kit-large As directed blood sugar diagnostic (YouScribeuch Ultra Test strips) USE TO TEST BLOOD SUGAR FOUR TIMES PER DAY blood-glucose meter (Notable Limited Ultra2 Meter) As directed test 4 times a day blood-glucose meter,continuous (Dexcom G7 Office Services Representative) As directed cholecalciferol (vitamin D3) (Vitamin D3) 50 mcg PO DAILY Dexcom G7 Sensor (blood-glucose sensor) As directed change every 10 days NS diclofenac sodium 1% (Arthritis Pain (diclofenac)) 2 grams topical QID PRN 30 days dulaglutide (Trulicity) 4.5 mg (0.5 mL) subcut QWEEK 28 days ferrous sulfate 325 mg PO DAILY 90 days Grab bar As directed incontinence pad, liner, disp Use 1 pad every 6 hours as needed insulin degludec 22 units subcut DAILY insulin lispro (Humalog KwikPen (U-100) Insulin) 5 units before breakfast 7 units before lunch and dinner subcutaneously 3 times a day; 90 days lancets (YouScribeuch Delica Plus Lancet) USE TO TEST BLOOD SUGAR FOUR TIMES DAILY lancets (FreeStyle Lancets) As directed test 4X a day levothyroxine 137 mcg PO DAILY@0600 lisinopril 5 mg (1/2 x 10 mg) PO DAILY 90 days metformin ER 1,000 mg PO DAILY metoprolol succinate ER 25 mg See Protocol PO DAILY nebulizers As directed rosuvastatin 40 mg PO DAILY 90 days Ventolin HFA 90 mcg/actuation (albuterol sulfate) 2 puffs inhalation Q6H PRN 30 days NS [wipes flushable As directed] HPI Comments Details: 69-year-old female coming in today for follow up of papillary thyroid cancer status post total thyroidectomy in May 2017, with Dr. Theron Whalen at [facility], 3.2 cm focus with positive lymphovascular extension, positive perineural extension, positive ETE to soft tissue but not to skeletal muscle, margins free of tumor, 3/4 positive lymph nodes. Unclear AJCC stage but labeled as stage IV A (pT3, N1a, MX), MUSTAPHA inital high risk of recurrence currently, MUSTAPHA excellent response to therapy. She sees Adenike Guajardo NP for diabetes melitus in our office, last visit 07/16/24 History of PTC in detail 05/02/2017: Total thyroidectomy with Dr. Theron Whalen at [facility] to be wet [facility], pathology report showed tumor size 3.2 X 3 X 2.9 cm, PTC classic variant, positive lymphovascular extension, positive perineural extension, positive extrathyroidal extension to soft tissue but not to skeletal muscle, margins free of tumor, lymph nodes examined 09/02 positive for tumor. Left upper parathyroid gland was a hyperplastic and removed. AJCC stage Ivy ?? PT3, N1a, MX. Unclear why it says pT3, should be pT4b?? per description 09/21/2017: Whole-body scan post remnant ablation showed no metastasis, only uptake in the neck. 10/12/2017: Treatment with GALAVIZ 104.7 mCi I 131 09/29/2020: Whole-body scan showed faint focus of radiotracer uptake in the left hypopharyngeal wall. There was no corresponding abnormality in CT images. TSH was 30.16, TG level was 0.6 ng/mL. 04/03/2022: Ultrasound head and neck with multiple normal-appearing lymph nodes. 02/27/2023: Labs TSH 44.9, free T4 0.66, TG level 0.6, TG antibody less than 1 11/07/2023 TSH 30.29, consistent with poor adherence to levothyroxine. No thyroglobulin level done. Interval history Did not get US neck done , got hospitalized on day of appointment Most recent lab s 07/16/24: TSH 1.6, free t4 1.29, Tg <0.1, tg ab 2 Currenctly taking levothyroxine 137 mcg daily , reports good adherence now. Tiredness better. Denies palpitations. Denies tremors. Bowel movements are regular. Lost 10 lbs since April 2024, howeevr stable for the past 2-3 months Denies any new lumps or bumps in neck, reports some intermittent choking not new , sometimes reports voice hoarseness Physical exam General: sitting comfortably in no acute distress HEENT: normocephalic/atraumatic, Neck: supple, symmetrical, no palpble masses or lymphnodes , no dorsocervical or supraclavicular fat pads Cardiac: normal heart sounds Pulm: normal breath sounds B/L, no added breath sounds Abd: not distended, no tenderness Extremities: no edema, no signs of myxedema Laboratory Tests 05/22/18 05/31/18 08/07/18 11:45 09:00 05:13 TSH Free T4 1.84 1.83 1.52 Thyroglobulin Thyroglobulin Antibody 11/11/18 06/11/19 12/11/19 11:00 11:30 09:59 TSH Free T4 1.34 1.30 1.21 Thyroglobulin 0.1 H <0.1 <0.1 Thyroglobulin Antibody <1 <1 <1 05/25/20 09/07/20 09/20/20 10:10 12:52 14:02 TSH 0.40 12.85 H 30.16 H Free T4 1.32 0.48 L 0.51 L Thyroglobulin <0.1 0.6 H Thyroglobulin Antibody <1 <1 11/04/20 04/03/22 04/03/22 12:45 10:45 10:45 TSH 3.62 5.82 H Free T4 1.51 Thyroglobulin 0.1 H Thyroglobulin Antibody <1 <1 06/12/22 02/27/23 11/07/23 09:05 10:02 10:56 TSH 5.65 H 44.90 H 30.29 H Free T4 1.20 0.66 L Thyroglobulin 0.6 L Thyroglobulin Antibody Laboratory Tests 07/16/24 10:03 TSH 1.60 Free T4 1.29 Thyroglobulin <0.1 L Thyroglobulin LC-MS/MS <0.4 Thyroglobulin Antibody 2 H Imaging US SOFT TISSUE HEAD/NECK 04/03/22 CLINICAL INFORMATION: Status post thyroidectomy. History of thyroid cancer. COMPARISON: Ultrasound soft tissue 03/17/2019. TECHNIQUE: Ultrasound of the neck soft tissues is performed with high-frequency gamez-scale imaging and color Doppler. FINDINGS: THYROID BED: Prior thyroidectomy. No residual thyroid tissue demonstrated in the thyroid bed. No cystic or solid nodules demonstrated in the thyroid bed. RIGHT NECK SOFT TISSUES: Scattered architecturally normal nodes are present. The nodes show normal fatty hilus, normal cortical thickness, and no cystic change or calcification. No abnormal color-flow. The largest nodes are as follows: Level 3: 0.6 x 0.6 x 0.5 cm. Normal johnny architecture. Previous 1.0 0.2 x 0.8 cm. Level 3: 0.5 x 0.4 x 0.4 cm. Normal johnny architecture. Not seen previously. Level 3: 0.7 x 0.5 x 0.5 cm. Normal johnny architecture. Not seen previously. Level 5A: 1.0 x 0.3 x 0.6 cm. Normal johnny architecture. Previous 0.6 x 0.3 x 0.3 cm. LEFT NECK SOFT TISSUES: Scattered architecturally normal nodes are present. The nodes show normal fatty hilus, normal cortical thickness, and no cystic change or calcification. No abnormal color-flow. The largest nodes are as follows: Level 1B: 0.5 x 0.3 x 0.5 cm. Normal johnny architecture. Not seen previously. Level 2: 0.4 x 0.3 x 0.8 cm. Normal johnny architecture. Previous 1.3 x 0.6 x 1.3 cm. Level 3: 0.7 x 0.3 x 1.1 cm. Normal johnny architecture. Not seen previously. Level 3: 0.9 x 0.6 x 0.9 cm. Normal johnny architecture. Previous 0.9 x 0.5 x 1.0 cm. Level 3: 0.7 x 0.4 x 0.6. Normal johnny architecture. Not seen previously. Level 5B: 1.5 x 0.5 x 1.0 cm. Normal johnny architecture. Previous 0.4 x 0.2 x 0.5 cm. US/US soft tiss head and/or neck IMPRESSION: 1. Total thyroidectomy with no residual thyroid tissue seen. Multiple benign neck lymph nodes. 2. If clinically indicated, further evaluation of the neck soft tissues and nodes may be performed with CT soft tissue neck with intravenous contrast. [facility] Medical History Hypothyroidism Asthma Pericardial effusion Pneumonitis Pleural effusion Hypoglycemia unawareness associated with type 2 diabetes mellitus Post-surgical hypothyroidism assisted (current) use of insulin Postsurgical hypothyroidism Thyroid cancer Dyslipidemia Essential hypertension Hyperparathyroidism Vitamin D deficiency Obesity (BMI 30-39.9) Diabetes type 2, uncontrolled Surgical History Hx of colonoscopy Hx of total thyroidectomy Hx of hysterectomy Family History Father No problems noted. Mother Arthritis Social History Household Members: Family Housing: House Do you presently have visiting nurse or other home services: Yes (EMAIL MARKETING SPECIALIST) Alcohol intake: never Patient Tobacco Use Status: Never used Tobacco e-Cigarette/Vaping Use: Never Used Second Hand Smoke Exposure: No service: No Current occupational status: disabled Cognitive needs: No Hearing needs: No Vision needs: No Physical Exam Vital Signs: Last Vital Signs Pulse 61 09/01/24 08:37 BP 146/74 H 09/01/24 08:37 Pulse Ox 96 09/01/24 08:37 Oxygen Delivery Method Room Air 09/01/24 08:37 BMI result Body Mass Index 32.9 Assessment & Plan Assessment & Plan (1) Thyroid cancer: Code(s): C73 - Malignant neoplasm of thyroid gland Category: Medical Plan: 69-year-old female coming in today for follow up of papillary thyroid cancer status post total thyroidectomy in May 2017, with Dr. hTeron Whalen at [facility], 3.2 cm focus with positive lymphovascular extension, positive perineural extension, positive ETE to soft tissue but not to skeletal muscle, margins free of tumor, 3/4 positive lymph nodes. Unclear AJCC stage but labeled as stage IV A (pT3, N1a, MX), MUSTAPHA inital high risk of recurrence currently, MUSTAPHA excellent response to therapy based on unremarkable US findings ( last us 04/2022) and stimulated Tg of 0.6 and unstimulated Tg of 0.1. Las tset of tumor markers 07/16/24: TSH 1.6, free t4 1.29, Tg <0.1, tg ab 2 We had ordered a neck ultrasound, she has not gotten that done, missed her ultrasound appointment due to hospitalization and then was unable to reschedule. Given MUSTAPHA excellent response to therapy , TSh goal 0.5- 2. Plan : -Continue levothyroxine 137 mcg daily -Goal TSH 0.5-2 - next set of tumor markers would be due in 1 year in July 2025 -we will plan to repeat TSH, free T4 in 6 months sometime around March 2025 - Ordered US neck again, fup in 6 weeks to discuss results (2) Hypothyroidism: Code(s): E03.9 - Hypothyroidism, unspecified Category: Medical Qualifiers: Hypothyroidism type: postoperative Qualified Code(s): E89.0 - Postprocedural hypothyroidism Plan: Post surgical hypothyrodism. Poor adherence historically to levothyroxine intermittently, now with better adherence. Given MUSTAPHA excellent response to therapy , TSh goal 0.5- 2. Most recent TSH 07/16/2024 1.6 Plan : -Continue levothyroxine 137 mcg daily -Goal TSH 0.5-2 - next TSH, free T4 to be done in March 2025 Plan I spent 30 minutes in reviewing the record, seeing the patient and documenting in the medical record. Orders: Orders 2 US soft tiss head and/or neck Today C73 - Malignant neoplasm of thyroid gland Thyroid Stimulating Hormone 6 Months E89.0 - Postprocedural hypothyroidism Free T4 (Free Thyroxine) 6 Months E89.0 - Postprocedural hypothyroidism Medications: New 2 levothyroxine 137 mcg PO DAILY@0600 30 tabs 7RF Patient Instructions: Do Ultrasound of the neck Follow up in 6 weeks to discuss results Continue levothyroxine 137 mcg daily Next thyroid blood work would be due in 6 months sometime around Mar 2025 Realice lia ecograf?a del antolin Vuelva a hacer un seguimiento en 6 semanas para analizar los resultados Contin?e tomando levotiroxina 137 mcg por d?a El pr?ximo an?lisis de yosef de tiroides se realizar? en 6 meses, aproximadamente en 2024 Coding Level of Care Code Est Pt Level 4 (04257) Complex EM visit Add On G2211 Diagnoses Thyroid cancer C73 Postoperative hypothyroidism E89.0 Hypothyroidism type: postoperative
--- OUTSIDE RECORDS SUMMARY | 2024-09-01 08:57 | XMS_ITS | Encounter Summary ---
Author Organization [employer] Address [address] [place] [address] 7t [place] [address] Care Team Providers Care Event Marketing Specialist Name Role Phone Unavailable Primary Care Provider Unavailabl e Reason for Visit * Reason Comments Med Refill Encounter Details Date Type Department Care Team ([facility] st Contact Info) Description 04/10/2024 Refill [facility] CHC MED & PEDS [address] [place] [address] Ganesh Alvarado MD [address] [place] [address] Social History Tobacco Use Types Packs/Day Years [...]
--- OUTSIDE RECORDS SUMMARY | 2024-09-01 08:57 | XMS_ITS | Encounter Summary ---
Author Organization [employer] Address [address] [place] [address] 7t [place] [address] Care Team Providers Care Athletics Director Name Role Phone Unavailable Primary Care Provider Unavailabl e Reason for Visit * Reason Comments Med Refill Encounter Details Date Type Department Care Team ([facility] st Contact Info) Description 07/01/2024 Refill [facility] CHC MED & PEDS [address] [place] [address] Ganesh Alvarado MD [address] [place] [address] Social History Tobacco Use Types Packs/Day Years [...]
--- OUTSIDE RECORDS SUMMARY | 2024-09-01 08:57 | XMS_ITS | Encounter Summary ---
Author Organization [employer] Address [address] [place] [address] 7t [place] [address] Care Team Providers Care Garden Labourer Name Role Phone Unavailable Primary Care Provider Unavailabl e Reason for Visit * Reason Comments Med Refill Encounter Details Date Type Department Care Team ([facility] st Contact Info) Description 05/06/[address] [facility] CHC MED & PEDS [address] [place] [address] Ganesh Alvarado MD [address] [place] [address] Social History Tobacco Use Types Packs/Day Years [...]
--- OUTSIDE RECORDS SUMMARY | 2024-09-01 08:57 | XMS_ITS | Encounter Summary ---
Author Organization [employer] Address [address] [place] [address] 7t [place] [address] Care Team Providers Care Mental Health Specialist Name Role Phone Unavailable Primary Care Provider Unavailabl e Reason for Visit * Reason Comments Med Refill Encounter Details Date Type Department Care Team ([facility] st Contact Info) Description 06/04/2024 Refill [facility] CHC MED & PEDS [address] [place] [address] Ganesh Alvarado MD [address] [place] [address] Social History Tobacco Use Types Packs/Day Years [...]
--- OUTSIDE RECORDS SUMMARY | 2024-09-01 08:57 | XMS_ITS | Clinical Summary ---
Author Organization [employer] Address [address] [place] [address] [address]t [place] [address] Care Team Providers Care Tool Pusher Name Role Phone Unavailable Primary Care Provider [...] complication, with long-term current use of insulin ([facility]) INJETAR 20 UNIDADES SUBCUTANEAS TEDDY VEZ AMANDA. 15 mL 11 06/08/20 23 Active lisinopril 10 MG tablet TAKE 1 TABLET BY MOUTH DAILY 28 tablet 3 06/28/20 23 Active Encounters Date Type Department Care Team Description 08/26/2024 Refill [facility] CHC MED & PEDS [address] [place] [address] Ganesh Alvarado MD 07/29/2024 Refill [facility] MED & PEDS [address] [place] [address] Ganesh Alvarado MD 07/01/2024 Refill [facility] MED & PEDS [address] [place] [address] Ganesh Alvarado MD 06/04/2024 Refill [facility] MED & PEDS [address] [place] [address] Ganesh Alvarado MD from Last 3 Months [...] (ABNORMAL) LIPID PANEL (05/25/2020 10:10 AM EST) [facility] Signature Cholesterol 186 mg/dL [facility] Comment: Desirable Cholesterol: ?less than 200 mg/dL Borderline High Cholesterol: ??200-239 mg/dL High Cholesterol: ? greater than 239 mg/dL HDL Cholesterol 41 mg/dL [facility] Comment: Desirable HDL: ??greater than 40 mg/dL ?? Note: This HDL assay may give artificially ? low results in patients with liver disease. LDL Cholesterol Calculated 127 mg/dl [facility] Comment: Desirable LDL: ? less than 100 mg/dL Near Optimal/Above Optimal LDL: ??110-129 mg/dL Borderline High LDL: ? 130-159 mg/dL High LDL: ?160-189 mg/dL Very High LDL: ? greater than or equal to ?190 mg/dL Triglycerides 94 mg/dL [facility] Comment: Desirable Triglyceride: ? less [...] Amino Transferase 14 5 - 31 U/L [facility] Bilirubin Total 0.3 0.0 - [...] >60 [facility] Comment: NOTE: ??For -[place] individuals, multiply the result ?by . ?? Chronic Kidney Disease: ??Estimated GFR < 60 mL/min/1.73m2 Severe Kidney Disease: ??Estimated GFR < 15 mL/min/1.73m2 Glucose Fasting 110(H) 60 - 99 mg/dL [facility] Comment: A fasting glucose from 100-125 mg/dl is considered impaired (pre-diabetes). Potassium 4.8 3.3 - 5.1 mmol/l [facility] Sodium 143 135 - 145 mmol/L [facility] Total Protein 6.9 6.5 - 8.0 g/dL [facility] Vitamin D 25-OH Total 50.3 >30 ng/mL [facility] Comment: Health Based Reference Values* [...] (Free Thyroxine) 1.32 0.71 - 1.85 ng/dL [facility] 05/25/2020 10:1 0 AM EST us Historical Provider HISTORICAL/NON ORDERABLE LABS Final Result [facility] [address] * Mammography Report 1 (05/04/2020 9:06 [...] Recently Relevant to Health Maintenance Insurance MEDICARE * Guarantor: Alee Amato Account Type Relation to Patient Date of Phone Billing Address Personal/Family Self [place] [address] [address]
--- OUTSIDE RECORDS SUMMARY | 2024-09-01 08:57 | XMS_ITS | Encounter Summary ---
Author Organization [employer] Address [address] [place] [address] 7t [place] [address] Care Team Providers Care Porter Sample Case Name Role Phone Unavailable Primary Care Provider Unavailabl e Reason for Visit * Reason Comments Med Refill Encounter Details Date Type Department Care Team ([facility] st Contact Info) Description 04/09/2024 Refill [facility] CHC MED & PEDS [address] [place] [address] Ganesh Alvarado MD [address] [place] [address] Social History Tobacco Use Types Packs/Day Years [...]
--- OUTSIDE RECORDS SUMMARY | 2024-09-01 08:58 | XMS_ITS | Encounter Summary ---
Author Organization [employer] Address [address] [place] [address] [address]t [place] [address] Care Team Providers Care Retail Sales Lead Name Role Phone Unavailable Primary Care Provider Unavailabl e Reason for Visit * Reason Comments Med Refill Encounter Details Date Type Department Care Team ([facility] st Contact Info) Description 07/29/2024 Refill [facility] CHC MED & PEDS [address] [place] [address] Ganesh Alvarado MD [address] [place] [address] Social History Tobacco Use Types Packs/Day Years [...]
--- OUTSIDE RECORDS SUMMARY | 2024-09-01 08:58 | XMS_ITS | Encounter Summary ---
Author Organization [employer] Address [address] [place] [address] 7 [place] [address] Care Team Providers Care Pillow Cleaner Name Role Phone Ganesh Alvarado MD Primary Care Provider [phone] Encounter Details Date Type Department Care Team ([facility] st Contact Info) Description 11/24/2022 Abstract [facility] CHC MED & PEDS [address] [place] [address] Ganesh Alvarado MD [address] [place] [address] Social History Tobacco Use Types Packs/Day Years [...] on filedocumented in this encounter Care Teams Pillow Cleaner Relationship Specialty Start Date End Date Ganesh Alvarado MD [address] [place] [address] PCP - General Internal Medicine 12/21/17 09/05/23 documented as of this encounter
--- OUTSIDE RECORDS SUMMARY | 2024-09-01 08:58 | XMS_ITS | Encounter Summary ---
Author Organization [employer] Address [address] [place] [address] [address] [place] [address] Care Team Providers Care Regulatory Affairs Assistant Name Role Phone Unavailable Primary Care Provider Unavailabl e Reason for Visit * Reason Comments Med Refill Encounter Details Date Type Department Care Team (Late st Contact Info) Description 10/18/2023 Refill [facility] [address] [place] [address] Ganesh Alvarado MD [address] [place] [address] Social History Tobacco Use Types Packs/Day Years [...]
--- OUTSIDE RECORDS SUMMARY | 2024-09-01 08:58 | XMS_ITS | Encounter Summary ---
Author Organization [employer] Address [address] [place] [address] [address]t [place] [address] Care Team Providers Care Net Manager Name Role Phone Unavailable Primary Care Provider Unavailabl e Reason for Visit * Reason Comments Med Refill Encounter Details Date Type Department Care Team ([facility] st Contact Info) Description 01/17/2024 Refill [facility] CHC MED & PEDS [address] [place] [address] Ganesh Alvarado MD [address] [place] [address] Social History Tobacco Use Types Packs/Day Years [...]
--- OUTSIDE RECORDS SUMMARY | 2024-09-01 08:58 | XMS_ITS | Encounter Summary ---
Author Organization [employer] Address [address] [place] [address] 7 [place] [address] Care Team Providers Care Genetics Nurse Name Role Phone Unavailable Primary Care Provider Unavailabl e Reason for Visit * Reason Comments Med Refill Encounter Details Date Type Department Care Team ([facility] st Contact Info) Description 08/26/2024 Refill [facility] CHC MED & PEDS [address] [place] [address] Ganesh Alvarado MD [address] [place] [address] Social History Tobacco Use Types Packs/Day Years [...]
--- OUTSIDE RECORDS SUMMARY | 2024-09-01 08:58 | XMS_ITS | Encounter Summary ---
Author Organization [employer] Address [address] [place] [address] [address]t [place] [address] Care Team Providers Care Calender Machine Operator Helper Name Role Phone Unavailable Primary Care Provider Unavailabl e Reason for Visit * Reason Comments Med Refill Encounter Details Date Type Department Care Team ([facility] st Contact Info) Description 11/06/2023 Refill [facility] CHC MED & PEDS [address] [place] [address] Ganesh Alvarado MD [address] [place] [address] Social History Tobacco Use Types Packs/Day Years [...]
--- OUTSIDE RECORDS SUMMARY | 2024-09-01 08:58 | XMS_ITS | Encounter Summary ---
Author Organization [employer] Address [address] [place] [address] 7t [place] [address] Care Team Providers Care Waste Chopper Name Role Phone Unavailable Primary Care Provider Unavailabl e Reason for Visit * Reason Comments Med Refill Encounter Details Date Type Department Care Team ([facility] st Contact Info) Description 11/02/2023 Refill [facility] MED & PEDS 505 [place] [address] Ganesh Alvarado MD 505 [place] [address] Social History Tobacco Use Types Packs/Day Years [...]
--- OUTSIDE RECORDS SUMMARY | 2024-09-01 08:58 | XMS_ITS | Encounter Summary ---
Author Organization [employer] Address [address] [place] [address] 7 [place] [address] Care Team Providers Care Adult Care Provider Name Role Phone Ganesh Alvarado MD Primary Care Provider [phone] Reason for Visit * Reason Comments Med Refill Encounter Details Date Type Department Care Team (Late st Contact Info) Description 08/06/2023 Refill [facility] MEDICINE [address] [place] [address] Ganesh Alvarado MD 505 [place], [place] [phone] Social History Tobacco Use Types Packs/Day Years [...] on filedocumented in this encounter Care Teams Adult Care Provider Relationship Specialty Start Date End Date Ganesh Alvarado MD [address] [place] [address] PCP - General Internal Medicine 12/21/17 09/05/23 documented as of this encounter
--- OUTSIDE RECORDS SUMMARY | 2024-09-01 08:58 | XMS_ITS | Encounter Summary ---
Author Organization [employer] Address [address] [place] [address] 7 [place] [address] Care Team Providers Care Fountain Attendant Name Role Phone Ganesh Alvarado MD Primary Care Provider [phone] Reason for Visit * Reason Comments Med Refill Encounter Details Date Type Department Care Team (Late st Contact Info) Description 06/08/[address] [facility] CHC MED & PEDS 505 [place] [address] Ganesh Alvarado MD 505 [place] [address] Social History Tobacco Use Types Packs/Day Years [...] on filedocumented in this encounter Care Teams Fountain Attendant Relationship Specialty Start Date End Date Ganesh Alvarado MD 505 [place] [address] PCP - General Internal Medicine 12/21/17 09/05/23 documented as of this encounter
== END 2024-09-01 09:19 | disposition home or self-care (01) ==
PROVIDERS: PCP Internal Medicine; Visit Provider Student in an Organized Health Care Education/Training Program
DX: C73 Malignant neoplasm of thyroid gland (principal); E89.0 Postprocedural hypothyroidism
CPT/HCPCS: 99214; G2211

== ENCOUNTER → 2024-09-01 08:32 | Outpatient (BNVA) | payer OTHER, SELFPAY | PROVIDERS: PCP Internal Medicine; Visit Provider Student in an Organized Health Care Education/Training Program | DX: C73 Malignant neoplasm of thyroid gland (principal); E89.0 Postprocedural hypothyroidism | CPT/HCPCS: 99212 ==

== ENCOUNTER 2024-09-23 14:09 | Outpatient (REF) | payer OTHER, SELFPAY ==
--- NOTE | ~2024-09-23 | US_ITS ---
CLINICAL HISTORY: C73 - Malignant neoplasm of thyroid gland ULTRASOUND SOFT TISSUE HEAD AND NECK Comparison: US/SR - US SOFT TISS HEAD AND/OR NECK - 04/03/22 09:03 EDT Findings: There is a left level 3 circumscribed cystic lesion which measures 1.2 x 0.3 x 0.8 cm. No significant intralesional or perilesional color flow. No posterior acoustic shadowing. There is a left level 4 circumscribed cystic lesion which measures 0.8 x 0.5 x 0.5 cm. No significant intralesional or perilesional color flow. No posterior acoustic shadowing. There are multiple right level 1A, 1B and 3 nonenlarged lymph nodes with benign morphology. The largest lymph node measures 0.9 x 0.3 x 1.0 cm. There is a left level 3 mildly enlarged lymph node with benign morphology that measures 2.2 x 0.6 x 1.3 cm. There is a left level 4 borderline nonenlarged lymph node with benign morphology that measures 1.1 x 0.5 x 0.4 cm. Impression: 1. Subtotal thyroidectomy. 2. Multiple nonenlarged to mildly enlarged benign lymph nodes bilaterally. 3. Nonspecific cystic lesions in the left neck at the level 3 and level 4 regions. This document has been electronically signed by: Andreina Benitez DO on 09/24/2024 13:56:41
--- OUTSIDE RECORDS SUMMARY | 2024-09-23 17:41 | XMS_ITS | Encounter Summary ---
Author Organization [employer] Address [address] [place] [address] 7 [place] [address] Care Team Providers Care Catalyst Plant Supervisor Name Role Phone Unavailable Primary Care Provider Unavailabl e Reason for Visit * Reason Comments Med Refill Encounter Details Date Type Department Care Team ([facility] st Contact Info) Description 11/06/2023 Refill [facility] CHC MED & PEDS [address] [place] [address] Ganesh Alvarado MD 505 [place] [address] Social History Tobacco Use Types Packs/Day Years [...]
--- OUTSIDE RECORDS SUMMARY | 2024-09-23 17:41 | XMS_ITS | Encounter Summary ---
Author Organization [employer] Address [address] [place] [address] 7t [place] [address] Care Team Providers Care Transplant Case Manager Name Role Phone Unavailable Primary Care Provider Unavailabl e Reason for Visit * Reason Comments Med Refill Encounter Details Date Type Department Care Team ([facility] st Contact Info) Description 04/10/[address] [facility] CHC MED & PEDS 505 [place] [address] Ganesh Alvarado MD 505 [place] [address] Social History Tobacco Use Types Packs/Day Years [...]
--- OUTSIDE RECORDS SUMMARY | 2024-09-23 17:41 | XMS_ITS | Encounter Summary ---
Author Organization [employer] Address [address] [place] [address] 7t [place] [address] Care Team Providers Care Microbiological Laboratory Technician Name Role Phone Unavailable Primary Care Provider Unavailabl e Reason for Visit * Reason Comments Med Refill Encounter Details Date Type Department Care Team ([facility] st Contact Info) Description 06/04/2024 Refill [facility] CHC MED & PEDS 505 [place] [address] Ganesh Alvarado MD 505 [place] [address] Social History Tobacco Use Types Packs/Day Years [...]
--- OUTSIDE RECORDS SUMMARY | 2024-09-23 17:41 | XMS_ITS | Encounter Summary ---
Author Organization [employer] Address [address] [place] [address] 7t [place] [address] Care Team Providers Care Saxophone Teacher Name Role Phone Unavailable Primary Care Provider Unavailabl e Reason for Visit * Reason Comments Med Refill Encounter Details Date Type Department Care Team ([facility] st Contact Info) Description 07/29/2024 Refill [facility] CHC MED & PEDS 505 [place] [address] Ganesh Alvarado MD 505 [place] [address] Social History Tobacco Use Types Packs/Day Years [...]
--- OUTSIDE RECORDS SUMMARY | 2024-09-23 17:41 | XMS_ITS | Encounter Summary ---
Author Organization [employer] Address [address] [place] [address] 7 [place] [address] Care Team Providers Care Medical I D Sales Name Role Phone Unavailable Primary Care Provider Unavailabl e Reason for Visit * Reason Comments Med Refill Encounter Details Date Type Department Care Team ([facility] st Contact Info) Description 08/26/2024 Refill [facility] CHC MED & PEDS [address] [place] [address] Ganesh Alvarado MD 505 [place] [address] Social History Tobacco Use Types Packs/Day Years [...]
--- OUTSIDE RECORDS SUMMARY | 2024-09-23 17:41 | XMS_ITS | Encounter Summary ---
Author Organization [employer] Address [address] [place] [address] 7t [place] [address] Care Team Providers Care Restaurant And Bar Manager Name Role Phone Unavailable Primary Care Provider Unavailabl e Reason for Visit * Reason Comments Med Refill Encounter Details Date Type Department Care Team ([facility] st Contact Info) Description 05/06/2024 Refill [facility] CHC MED & PEDS [address] [place] [address] Ganesh Alvarado MD 505 [place] [address] Social History Tobacco Use Types Packs/Day Years [...]
--- OUTSIDE RECORDS SUMMARY | 2024-09-23 17:41 | XMS_ITS | Encounter Summary ---
Author Organization [employer] Address [address] [place] [address] 7t [place] [address] Care Team Providers Care Auto Wheel Alignment Specialist Name Role Phone Unavailable Primary Care Provider Unavailabl e Reason for Visit * Reason Comments Med Refill Encounter Details Date Type Department Care Team ([facility] st Contact Info) Description 04/09/2024 Refill [facility] CHC MED & PEDS 505 [place] [address] Ganesh Alvarado MD 505 [place] [address] Social History Tobacco Use Types Packs/Day Years [...]
--- OUTSIDE RECORDS SUMMARY | 2024-09-23 17:41 | XMS_ITS | Encounter Summary ---
Author Organization [employer] Address [address] [place] [address] 7 [place] [address] Care Team Providers Care Parent Partner Name Role Phone Ganesh Alvarado MD Primary Care Provider [phone] Encounter Details Date Type Department Care Team ([facility] st Contact Info) Description 11/24/2022 [facility] CHC MED & PEDS [address] [place] [address] Ganesh Alvarado MD 505 [place] [address] Social History Tobacco Use Types Packs/Day Years [...] on filedocumented in this encounter Care Teams Parent Partner Relationship Specialty Start Date End Date Ganesh Alvarado MD 505 [place] [address] PCP - General Internal Medicine 12/21/17 09/05/23 documented as of this encounter
--- OUTSIDE RECORDS SUMMARY | 2024-09-23 17:41 | XMS_ITS | Clinical Summary ---
Author Organization [employer] Address [address] [place] [address] 7t [place] [address] Care Team Providers Care Sample Room Supervisor Name Role Phone Unavailable Primary Care [...] complication, with long-term current use of insulin ([facility]) INJETAR 20 UNIDADES SUBCUTANEAS TEDDY VEZ AMANDA. 15 mL 11 06/08/20 23 Active lisinopril 10 MG tablet TAKE 1 TABLET BY MOUTH DAILY 28 tablet 3 06/28/20 23 Active Encounters Date Type Department Care Team Description 08/26/2024 Refill [facility] CHC MED & PEDS [address] [place] [address] Ganesh Alvarado MD 07/29/2024 Refill [facility] MED & PEDS [address] [facility] [place] [address] Ganesh Alvarado MD 07/01/2024 Refill [facility] MED & PEDS [address] [place] [address] Ganesh Alvarado MD from Last 3 Months [...] liver disease. LDL Cholesterol Calculated 127 mg/dl [facility] Comment: Desirable LDL: ? less [...] Amino Transferase 14 5 - 31 U/L [facility] Bilirubin Total 0.3 0.0 - [...] >60 [facility] Comment: NOTE: ??For -[place] individuals, multiply the result ?by 210. ?? [...] Protein 6.9 6.5 - 8.0 g/dL [facility] Vitamin D 25-OH Total 50.3 >30 ng/mL [facility] Comment: Health Based Reference Values* [...] Thyroxine) 1.32 0.71 - 1.85 ng/dL [facility] 05/25/2020 10:1 0 AM EST us Historical Provider HISTORICAL/NON ORDERABLE LABS Final Result [facility] [address] * Mammography Report 1 (05/04/2020 9:06 [...] Recently Relevant to Health Maintenance Insurance [place] [phone] * Guarantor: Alee Amato Account Type Relation to Patient Date of Phone Billing Address Personal/Family Self [place] [address] [address]
--- OUTSIDE RECORDS SUMMARY | 2024-09-23 17:41 | XMS_ITS | Encounter Summary ---
Author Organization [employer] Address [address] [place] [address] 7t [place] [address] Care Team Providers Care Splitting Machine Tender Name Role Phone Unavailable Primary Care Provider Unavailabl e Reason for Visit * Reason Comments Med Refill Encounter Details Date Type Department Care Team ([facility] st Contact Info) Description 07/01/2024 Refill [facility] CH[facility] MED & PEDS [address] [place] [address] Ganesh Alvarado MD 505 [place] [address] Social History Tobacco Use Types Packs/Day Years [...]
--- OUTSIDE RECORDS SUMMARY | 2024-09-23 17:41 | XMS_ITS | Encounter Summary ---
Author Organization [employer] Address [address] [place] [address] 7 [place] [address] Care Team Providers Care Outdoor Fitness Trainer Name Role Phone Ganesh Alvarado MD Primary Care Provider [phone] Reason for Visit * Reason Comments Med Refill Encounter Details Date Type Department Care Team (Late st Contact Info) Description 06/08/2023 Refill [facility] CH[facility] MED & PEDS [address] [place] [address] Ganesh Alvarado MD [address] [place] [address] Social History Tobacco Use Types Packs/Day Years [...] on filedocumented in this encounter Care Teams Outdoor Fitness Trainer Relationship Specialty Start Date End Date Ganesh Alvarado MD [address] [place] [address] PCP - General Internal Medicine 12/21/17 09/05/23 documented as of this encounter
--- OUTSIDE RECORDS SUMMARY | 2024-09-23 17:41 | XMS_ITS | Encounter Summary ---
Author Organization [employer] Address [address] [place] [address] 7 [place] [address] Care Team Providers Care Instructor Knitting Name Role Phone Ganesh Alvarado MD Primary Care Provider [phone] Reason for Visit * Reason Comments Med Refill Encounter Details Date Type Department Care Team (Late st Contact Info) Description 08/06/2023 Refill [facility] MEDICINE [address] [place] [address] Ganesh Alvarado MD 505 [place], [place] [phone] Social History Tobacco Use Types Packs/Day Years [...] on filedocumented in this encounter Care Teams Instructor Knitting Relationship Specialty Start Date End Date Ganesh Alvarado MD [address] [place] [address] PCP - General Internal Medicine 12/21/17 09/05/23 documented as of this encounter
--- OUTSIDE RECORDS SUMMARY | 2024-09-23 17:41 | XMS_ITS | Encounter Summary ---
Author Organization [employer] Address [address] [place] [address] 7 [place] [address] Care Team Providers Care High School Music Director Name Role Phone Unavailable Primary Care Provider Unavailabl e Reason for Visit * Reason Comments Med Refill Encounter Details Date Type Department Care Team ([facility] st Contact Info) Description 11/02/2023 Refill [facility] CHC MED & PEDS [address] [place] [address] Ganesh Alvarado MD [address] [place] [address] Social History Tobacco Use Types Packs/Day Years [...]
--- OUTSIDE RECORDS SUMMARY | 2024-09-23 17:41 | XMS_ITS | Encounter Summary ---
Author Organization [email or web address] Address [address] [place] [address] 7t [place] [address] Care Team Providers Care Group Sales Coordinator Name Role Phone Unavailable Primary Care Provider Unavailabl e Reason for Visit * Reason Comments Med Refill Encounter Details Date Type Department Care Team ([facility] st Contact Info) Description 01/17/2024 Refill [facility] CHC MED & PEDS [address] [place] [address] Ganesh Alvarado MD [address] [place] [address] Social History Tobacco Use Types Packs/Day Years [...]
--- OUTSIDE RECORDS SUMMARY | 2024-09-23 17:41 | XMS_ITS | Encounter Summary ---
Author Organization [employer] Address [address] [place] [address] 7t [place] [address] Care Team Providers Care Clinic Licensed Practical Nurse Name Role Phone Unavailable Primary Care Provider Unavailabl e Reason for Visit * Reason Comments Med Refill Encounter Details Date Type Department Care Team (Late st Contact Info) Description 10/18/2023 Refill [facility] MEDICINE [address] [place] [address] Ganesh Alvarado MD [address] [place] [address] Social History Tobacco Use Types Packs/Day Years [...]
== END 2024-09-23 14:10 | disposition home or self-care (01) ==
LOC: HO.US 14:09
PROVIDERS: PCP Internal Medicine; Visit Provider Student in an Organized Health Care Education/Training Program
DX: C73 Malignant neoplasm of thyroid gland (principal)
CPT/HCPCS: 76536

== ENCOUNTER → 2024-09-23 14:11 | Outpatient (BNV) | payer OTHER, SELFPAY | PROVIDERS: PCP Internal Medicine; Visit Provider Radiology Diagnostic Radiology | DX: R59.0 Localized enlarged lymph nodes (principal) | CPT/HCPCS: 76536 ==

== ENCOUNTER 2024-10-01 08:10 | Inpatient (IN) | payer OTHER, SELFPAY ==
[2024-10-01] VITALS (20 sets, daily range): BP systolic 101–170; BP diastolic 52–119; PULSE 54–153; RESP 14–22; TEMP 36.4–37.2; O2SAT 96–99; BMI 35.0; BMI 32.8
--- NOTE | 2024-10-01 | ECG_ITS ---
Test Reason : tachy Blood Pressure : */* mmHG Vent. Rate : 142 BPM Atrial Rate : 153 BPM P-R Int : 184 ms QRS Dur : 132 ms QT Int : 362 ms P-R-T Axes : * -67 -14 degrees QTcB Int : 556 ms Atrial flutter with rapid rate Left axis deviation Right bundle branch block Abnormal ECG When compared with ECG of 10-Jul-2024 09:11, Significant changes have occurred Referred By: Sunday Arguello Electronically Signed By: DEMETRIS MIX
--- NOTE | ~2024-10-01 | XR_ITS ---
EXAMINATION: XR CHEST 1 VIEW HISTORY: chest pain COMPARISON: Comparison is made with the prior examination dated 07/09/2024. FINDINGS: A single AP portable view of the chest performed at 9:01 AM is submitted. The lungs are expanded and clear. There is no pleural effusion, pneumothorax, or pulmonary vascular congestion. The heart is enlarged. There is degenerative disc disease of the spine. XR/XR chest 1V IMPRESSION: Cardiomegaly. No acute cardiopulmonary abnormality. Electronically signed by: Kofi Ohara MD 10/01/2024 09:08 AM EDT
--- NOTE | 2024-10-01 08:56 | ED_ITS ---
HPI - General Adult General Chief complaint: Dizziness Stated complaint: DIZZY,DIARRHEA X3D,DIFF AMB PER EMS Time Seen by Provider: 10/01/24 08:33 Source: patient Mode of arrival: EMS Limitations: no limitations History of Present Illness HPI narrative: this is a 69 years old female patient presented to the emergency department complaining of dizziness diarrhea generalized malaise. Found to be in rapid atrial fibrillation at the arrival. She does have history of AFib she is as also history of cardiomyopathy, hypothyroidism. Onset (ago): day(s) (3) Radiation: non-radiation Severity: moderate Relieving factors: none Exacerbating factors: none Associated symptoms: denies other symptoms Related Data Home Medications ?Medication ?Instructions ?Recorded ?Confirmed metformin 500 mg tablet,extended 1,000 mg PO DAILY 07/09/24 10/01/24 release 24 hr apixaban 5 mg tablet (Eliquis) 5 mg PO BID 10/01/24 10/01/24 dulaglutide 4.5 mg/0.5 mL 4.5 mg subcut MO 10/01/24 10/01/24 subcutaneous pen injector (Trulicity) insulin degludec 100 unit/mL (3 7 unit subcut DAILY 10/01/24 10/01/24 mL) subcutaneous pen (Tresiba FlexTouch U-100 insulin) insulin lispro 100 unit/mL 5 unit subcut TID 10/01/24 10/01/24 subcutaneous pen (Humalog KwikPen (U-100) Insulin) lisinopril 10 mg tablet 5 mg PO DAILY 10/01/24 10/01/24 Previous Rx's ?Medication ?Instructions ?Recorded lancets 33 gauge (OneTouch Delica #100 ea 01/22/23 Plus Lancet) blood pressure test kit-large #1 ea 04/23/23 rosuvastatin 40 mg tablet 40 mg PO DAILY 90 days #90 tabs 11/07/23 blood-glucose meter (OneTouch #1 ea 11/19/23 Ultra2 Meter) air conditioner #1 ea 01/13/24 incontinence pad, liner, disp #120 ea 01/13/24 wipes flushable #240 ea 01/13/24 blood-glucose,hollow core door frame assembler,cont #1 ea 02/19/24 (Dexcom G7 Medical Lab Assistant) lancets 28 gauge (FreeStyle #100 ea 03/12/24 Lancets) balance #1 ea 04/14/24 cholecalciferol (vitamin D3) 50 50 mcg PO DAILY #28 caps 06/23/24 mcg (2,000 unit) capsule (Vitamin D3) blood sugar diagnostic (OneTouch #100 ea 07/01/24 Ultra Test strips) nebulizers #1 ea 07/02/24 metoprolol succinate 25 mg 25 mg PO DAILY #90 tabs 07/11/24 tablet,extended release 24 hr Ventolin HFA 90 mcg/actuation 2 puff inhalation Q6H PRN 08/15/24 aerosol inhaler (albuterol sulfate) shortness of breath or wheezing 30 days #8 grams Dexcom G7 Sensor (blood-glucose #3 ea 08/27/24 sensor) levothyroxine 137 mcg tablet 137 mcg PO DAILY@0600 #30 tabs 09/01/24 Grab bar #1 ea 09/02/24 Allergies Allergy/AdvReac Type Severity Reaction Status Date / Time empagliflozin Allergy Intermediate ITCHY/RASH Verified 10/01/24 08:24 [From JARDIANCE] JARDIANCE Allergy Intermediate pruritus Uncoded 10/01/24 08:24 Review of Systems 2 Constitutional: Constitutional: Reports no additional constitutional complaints Cardiovascular: Cardiovascular: Reports no additional cardiovascular complaints PMFSH Past Medical History Attestation statement: The following information was validated with the patient. 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 Mother Arthritis Social History Social History Household Members: Family Housing: House Do you presently have visiting nurse or other home services: Yes (PLATE PAINTER APPRENTICE) Alcohol intake: never Patient Tobacco Use Status: Never used Tobacco e-Cigarette/Vaping Use: Never Used Second Hand Smoke Exposure: No Advance Directives: No Advance Directives Information Provided: Yes Do you have a plan to hurt others: No Plan service: No Current occupational status: disabled Cognitive needs: No Hearing needs: No Vision needs: No Physical Exam ED Vital Signs: Vital Signs - 24 hr 10/01/24 08:22 10/01/24 09:06 10/01/24 09:18 Temperature Pulse Rate 142 H 153 H 77 Respiratory Rate 22 H Blood Pressure 101/66 142/119 H Pulse Oximetry 99 Oxygen Delivery Method Room Air 10/01/24 10:14 10/01/24 10:43 10/01/24 10:46 Temperature 97.5 F Pulse Rate 81 140 H Respiratory Rate 18 Blood Pressure 124/57 L 111/75 Pulse Oximetry 99 Oxygen Delivery Method Room Air 10/01/24 10:50 10/01/24 10:54 10/01/24 11:22 Temperature Pulse Rate 140 H 118 H 145 H Respiratory Rate 18 17 Blood Pressure 102/73 123/97 H Pulse Oximetry Oxygen Delivery Method 10/01/24 12:03 Temperature 97.8 F Pulse Rate 82 Respiratory Rate 14 Blood Pressure 115/67 Pulse Oximetry 98 Oxygen Delivery Method Room Air BMI result Body Mass Index 35.0 Not acute distress tachycardic Const General: cooperative Nutritional Appearance: well nourished Orientation/consciousness: patient oriented x3 Limitations: no limitations HENMT Head: Yes normal to inspection General nose exam: Normal external nose present Mouth: Normal oral and palatal mucosa present Neck Neck: Yes normal visual inspection and Yes full ROM Chest Chest palpation & inspection: normal inspection of the chest Resp Effort & Inspection: normal respiratory effort Auscultation: clear to auscultation bilaterally Cardio Jugular venous distension: no JVD Rate: tachycardic Rhythm: abnormal rhythm GI Inspection: Yes normal to inspection Palpation (GI): Soft to palpation, not firm and nontender Auscultation: normal bowel sounds Skin General skin exam: no rashes or lesions noted Neuro General: patient oriented x3 Cranial nerves: Yes CN's II-XII intact bilaterally Cognition (Neuro): normal cognition Motor exam (neuro): 5/5 motor strength present throughout Medications Administered Generic Name Dose Route Start Last Admin Trade Name Freq PRN Reason Stop Dose Admin Diltiazem HCl 125 mg/ Sodium 125 mls @ 0 mls/hr 10/01/24 09:00 10/01/24 16:01 Chloride IVCONT 0 mg/hr .Q0M RENU 0 mls/hr Titration Protocol Per Protocol Discontinued Medications Generic Name Dose Route Start Last Admin Trade Name Jefry PRN Reason Stop Dose Admin Diltiazem HCl 15 mg 10/01/24 08:51 10/01/24 09:06 Diltiazem Hcl 50 Mg/10 Ml Vial IVPUSH 10/01/24 08:52 15 mg STAT STA Administration Sodium Chloride 1,000 mls @ 999 mls/hr 10/01/24 09:30 10/01/24 10:46 Ns IVCONT 10/01/24 10:30 Infused .Q1H1M RENU Infusion Potassium Chloride 40 meq 10/01/24 10:26 10/01/24 11:10 Potassium Chloride Er 20 Meq Tab.Er.Prt PO 10/01/24 10:27 40 meq ONCE ONE Administration Potassium Chloride 40 meq 10/01/24 13:13 10/01/24 13:49 Potassium Chloride Packet 20 Meq Packet PO 10/01/24 13:14 40 meq ONCE ONE Administration Procedures EJ/Peripheral Line Arm L: Time Out Performed: Yes Size (gauge): 18 IV Secured and Dressing Applied: Yes Patient Tolerated Procedure: well Additional Comments: under ultrasound guided cannulated the left basilic vein with 18 gauge long catheter good flash good blood return Medical Decision Making Medical Decision Making [facility] Narrative: patient presented to emergency department complaining of shortness of found to be in rapid AFib Differential Diagnosis Differential Diagnoses: The differential diagnosis associated with the presentation includes dehydration/ACS /viral syndrome Lab Data 10/01/24 08:53 10/01/24 08:53 Labs: Lab Results 10/01/24 10/01/24 Range/Units 08:40 08:53 WBC 12.8 H (4.8-10.8) X10*3/uL RBC 7.47 H D (4.20-5.50) X10*6/uL Hgb 13.8 D (12.0-16.0) g/dl Hct 46.2 D (37.0-47.0) % MCV 61.8 L (80.0-98.0) fL MCH 18.5 L (27.0-33.0) pg MCHC 29.9 L (31.0-35.0) g/dl RDW 20.3 H (11.0-16.0) % Plt Count 393 D (160-400) X10*3/uL MPV Not Reportable Immature Gran % (Auto) 0.4 (0.0-0.4) % Neut % (Auto) 70.4 (45-73) % Lymph % (Auto) 23.7 (20-40) % Howard % (Auto) 3.8 (2-11) % Eos % (Auto) 1.2 (0-4) % Baso % (Auto) 0.5 (0-2) % Lymph # (Auto) 3.0 (1.2-4.9) X10*3/uL Howard # (Auto) 0.5 (0.1-1.2) X10*3/uL Eos # (Auto) 0.2 (0.0-0.4) X10*3/uL Baso # (Auto) 0.1 (0.0-0.2) X10*3/uL Abs Immat Gran (auto) 0.05 H (0.00-0.03) X10*3/uL Absolute Neuts (auto) 9.0 H (2.0-8.3) x10*3/uL Absolute Nucleated RBC 0.000 (0.0-0.012) X10*3/uL Nucleated RBC % (auto) 0.0 (0.0-0.2) /100WBC Smear Tech's Comments VERIFIED ESR 7 (0-20) MM/HR PT 11.4 (10.9-12.4) SEC INR 1.0 (0.9-1.1) Sodium 144 (135-145) mmol/L Potassium 3.0 L (3.3-5.1) mmol/L Chloride 107 (96-108) mmol/L Carbon Dioxide 26 (22-29) mmol/L Anion Gap 14 (12-20) BUN 11 (9-16) mg/dL Creatinine 1.04 (0.5-1.4) mg/dL Estim Creat Clear Calc 49.5 Estimated GFR 53 Random Glucose 82 (60-115) mg/dL Lactic Acid 2.4 H* (0.5-2.0) mmol/L Calcium 9.6 D (8.4-10.2) mg/dL Total Bilirubin 0.4 (0.0-1.0) mg/dL AST 27 (5-31) U/L ALT 11 (0-31) U/L Alkaline Phosphatase 102 (39-117) U/L Troponin I High Sens 26.7 H (<3.5-17.0) ng/L Total Protein 7.8 (6.5-8.0) g/dL Albumin 3.9 (3.5-5.0) g/dL Independent Interpretation I performed an independent interpretation of an: EKG Interpretation: rapid AFib ventricular response of 140 Critical Care Time Critical Care Time Critical Care Time: Yes Total Critical Care Time: 60 Attestation: IV Cardizem and titration Discharge Plan Discharge Clinical Impression: Atrial fibrillation with rapid ventricular response, Acute hypokalemia, Acidosis, lactic Patient Disposition: Admitted As Inpatient
--- NOTE | 2024-10-01 09:03 | MHC.EDTECH ---
Patient changed over , EKG was taken and read by the ED provider and blood was drawn and send to the lab waiting for result , Patient is resting comfortably in her bed within call amado in her reach.
[2024-10-01] MEDS: dilTIAZem HCL 50 MG/10 ML VIAL 15 MG IVPUSH (09:06)
--- NOTE | 2024-10-01 09:07 | MHC.EDTECH ---
Patient on the heart monitor, came with high HR and now HR is 140-155 ED provider and RN aware.
[2024-10-01 09:10] LABS: Basophils Absolute Auto 0.1 X10*3/uL (0.0-0.2); Basophils Percent Auto 0.5 % (0-2); Eosinophils Absolute Auto 0.2 X10*3/uL (0.0-0.4); Eosinophils Percent Auto 1.2 % (0-4); Hematocrit 46.2 % (37.0-47.0); Hemoglobin 13.8 g/dl (12.0-16.0); Imm Gran Abs Auto 0.05 X10*3/uL (0.00-0.03); Imm Gran Pct Auto 0.4 % (0.0-0.4); Lymphocytes Percent Auto 23.7 % (20-40); MANUAL DIFF FLAG SCAN; Mean Corpuscular HGB Conc 29.9 g/dl (31.0-35.0); Mean Corpuscular Hemoglobin 18.5 pg (27.0-33.0); Monocytes Absolute Auto 0.5 X10*3/uL (0.1-1.2); Monocytes Percent Auto 3.8 % (2-11); Neutrophils Percent Auto 70.4 % (45-73); PLT CLUMP 1; Red Blood Count 7.47 X10*6/uL (4.20-5.50); Red Cell Distribution Width 20.3 % (11.0-16.0); SCAN SMEAR FLAG 1
[2024-10-01 09:11] LABS: Mean Corpuscular Volume 61.8 fL (80.0-98.0)
[2024-10-01 09:14] LABS: Prothrombin Time 11.4 SEC (10.9-12.4)
[2024-10-01 09:28] LABS: Alanine Aminotransferase 11 U/L (0-31); Albumin Level 3.9 g/dL (3.5-5.0); Alkaline Phosphatase 102 U/L (39-117); Anion Gap 14 (12-20); Aspartate Amino Transferase 27 U/L (5-31); Bilirubin Total 0.4 mg/dL (0.0-1.0); Blood Urea Nitrogen 11 mg/dL (9-16); Calcium 9.6 mg/dL (8.4-10.2); Carbon Dioxide 26 mmol/L (22-29); Chloride 107 mmol/L (96-108); Creatinine Clr Calc Pharmacy 49.5; Estimated Glomerular Filt Rate 53; Glucose Random 82 mg/dL (60-115); Sodium 144 mmol/L (135-145); Total Protein 7.8 g/dL (6.5-8.0)
[2024-10-01 09:30] LABS: Lactic Acid 2.4 mmol/L (0.5-2.0)
[2024-10-01] MEDS: 0.9 % Sodium Chloride 1,000 ML 999 ML IVCONT (09:32)
[2024-10-01 09:37] LABS: Troponin-I High Sensitivity 26.7 ng/L (<3.5-17.0)
[2024-10-01 09:42] LABS: Platelet Count 393 X10*3/uL (160-400); White Blood Count 12.8 X10*3/uL (4.8-10.8)
[2024-10-01 09:44] LABS: SLIDE REVIEW VERIFIED
[2024-10-01 09:52] LABS: Erythrocyte Sedimentation Rate 7 MM/HR (0-20)
[2024-10-01] MEDS: dilTIAZem HCL 125 MG in 0.9 % Sodium Chloride 100 ML 10 MG IVCONT (10:43)
[2024-10-01 11:01] LABS: Reflex Lactate? Lactic Acid Added
--- NOTE | 2024-10-01 11:07 | ECG_ITS ---
Test Reason : REPEAT Blood Pressure : */* mmHG Vent. Rate : 82 BPM Atrial Rate : * BPM P-R Int : * ms QRS Dur : 132 ms QT Int : 426 ms P-R-T Axes : * -66 -16 degrees QTcB Int : 497 ms Atrial fibrillation Right bundle branch block Left anterior fascicular block Bifascicular block Possible Lateral infarct (cited on or before 01-Oct-2024) Cannot rule out Inferior infarct (masked by fascicular block?) , age undetermined Abnormal ECG When compared with ECG of 01-Oct-2024 08:23, Vent. rate has decreased by 60 bpm Referred By: Sunday Arguello Electronically Signed By: DEMETRIS MIX
[2024-10-01] MEDS: Potassium Chloride ER 20 MEQ TAB.ER.PRT 40 MEQ PO (11:10)
--- NOTE | 2024-10-01 11:33 | PC.NURSE ---
RN to RN report given to HARJINDER Osorio. Jo given opportunity for questions and all questions answered to satisfaction. Care of Pt relinquished to HARJINDER Osorio at [phone]
--- OUTSIDE RECORDS SUMMARY | 2024-10-01 11:38 | XMS_ITS | Encounter Summary ---
Author Organization [employer] Address [address] [place] [address] [address] [place] [address] Care Team Providers Care Video Conference Specialist Name Role Phone Unavailable Primary Care Provider Unavailabl e Reason for Visit * Reason Comments Med Refill Encounter Details Date Type Department Care Team ([facility] st Contact Info) Description 06/04/2024 Refill [facility] CHC MED & PEDS [address] [place] [address] Ganesh Alvarado MD [address] [place] [address] Social History Tobacco Use Types Packs/Day Years [...]
--- OUTSIDE RECORDS SUMMARY | 2024-10-01 11:38 | XMS_ITS | Clinical Summary ---
Author Organization [employer] Address [address] [place] [address] [address] [place] [address] Care Team Providers Care Child Nutrition Director Name Role Phone Unavailable Primary Care [...] complication, with long-term current use of insulin ([facility]) INJETAR 20 UNIDADES SUBCUTANEAS TEDDY VEZ AMANDA. 15 mL 11 06/08/20 23 Active lisinopril 10 MG tablet TAKE 1 TABLET BY MOUTH DAILY 28 tablet 3 06/28/20 23 Active Encounters Date Type Department Care Team Description 09/24/2024 Refill [facility] CHC MED & PEDS [address] [place] [address] Ganesh Alvarado MD 08/26/2024 Refill [facility] MED & PEDS [address] [place] [address] Ganesh Alvarado MD 07/29/2024 Refill [facility] MED & PEDS [address] [place] [address] Ganesh Alvarado MD from Last 3 Months [...] liver disease. LDL Cholesterol Calculated 127 mg/dl [facility] Comment: Desirable LDL: ? less [...] Amino Transferase 14 5 - 31 U/L [facility] Bilirubin Total 0.3 0.0 - [...] >60 [facility] Comment: NOTE: ??For -Stateless individuals, multiply the result ?by 210. ?? [...] Total Protein 6.9 6.5 - 8.0 g/dL [facility] Vitamin D 25-OH Total 50.3 >30 ng/mL [facility] Comment: Health Based Reference Values* [...] (Free Thyroxine) 1.32 0.71 - 1.85 ng/dL [facility] 05/25/2020 10:1 0 AM EST us Historical Provider HISTORICAL/NON ORDERABLE LABS Final Result [facility] [address] * Mammography Report 1 (05/04/2020 9:06 [...] Recently Relevant to Health Maintenance Insurance [place] [phone] * Guarantor: Alee Amato Account Type Relation to Patient Date of Phone Billing Address Personal/Family Self [place] [address] [address]
--- OUTSIDE RECORDS SUMMARY | 2024-10-01 11:38 | XMS_ITS | Encounter Summary ---
Author Organization [employer] Address [address] [place] [address] [address] [place] [address] Care Team Providers Care Economic Developer Name Role Phone Unavailable Primary Care Provider Unavailabl e Reason for Visit * Reason Comments Med Refill Encounter Details Date Type Department Care Team ([facility] st Contact Info) Description 04/10/2024 Refill [facility] CHC MED & PEDS [address] [place] [address] Ganesh Alvarado MD [address] [place] [address] Social History Tobacco Use Types Packs/Day Years [...]
--- OUTSIDE RECORDS SUMMARY | 2024-10-01 11:38 | XMS_ITS | Encounter Summary ---
Author Organization [employer] Address [address] [place] [address] 7[address] [place] [address] Care Team Providers Care People Manager Name Role Phone Unavailable Primary Care Provider Unavailabl e Reason for Visit * Reason Comments Med Refill Encounter Details Date Type Department Care Team ([facility] st Contact Info) Description 07/01/2024 Refill [facility] CHC MED & PEDS [address] [place] [address] Ganesh Alvarado MD [address] [place] [address] Social History Tobacco Use Types Packs/Day Years [...]
--- OUTSIDE RECORDS SUMMARY | 2024-10-01 11:38 | XMS_ITS | Encounter Summary ---
Author Organization [employer] Address [address] [place] [address] 7t [place] [address] Care Team Providers Care Director Of Sustainability Programs Name Role Phone Unavailable Primary Care Provider Unavailabl e Reason for Visit * Reason Comments Med Refill Encounter Details Date Type Department Care Team ([facility] st Contact Info) Description 05/06/[address] [facility] CHC MED & PEDS [address] [place] [address] Ganesh Alvarado MD [address] [place] [address] Social History Tobacco Use Types Packs/Day Years [...]
--- OUTSIDE RECORDS SUMMARY | 2024-10-01 11:38 | XMS_ITS | Encounter Summary ---
Author Organization [employer] Address [address] [place] [address] 7t [place] [address] Care Team Providers Care Special Assemblies Supervisor Name Role Phone Unavailable Primary Care Provider Unavailabl e Reason for Visit * Reason Comments Med Refill Encounter Details Date Type Department Care Team ([facility] st Contact Info) Description 01/17/2024 Refill [facility] CHC MED & PEDS [address] [place] [address] Ganesh Alvarado MD [address] [place] [address] Social History Tobacco Use Types Packs/Day Years [...]
--- OUTSIDE RECORDS SUMMARY | 2024-10-01 11:38 | XMS_ITS | Encounter Summary ---
Author Organization [employer] Address [address] [place] [address] 7t [place] [address] Care Team Providers Care Blintze Roller Name Role Phone Unavailable Primary Care Provider Unavailabl e Reason for Visit * Reason Comments Med Refill Encounter Details Date Type Department Care Team ([facility] st Contact Info) Description 11/06/2023 Refill [facility] CHC MED & PEDS [address] [place] [address] Ganesh Alvarado MD [address] [place] [address] Social History Tobacco Use Types Packs/Day Years [...]
--- OUTSIDE RECORDS SUMMARY | 2024-10-01 11:38 | XMS_ITS | Encounter Summary ---
Author Organization [employer] Address [address] [place] [address] 7t [place] [address] Care Team Providers Care Manager Health Name Role Phone Unavailable Primary Care Provider Unavailabl e Reason for Visit * Reason Comments Med Refill Encounter Details Date Type Department Care Team ([facility] st Contact Info) Description 04/09/2024 Refill [facility] CHC MED & PEDS [address] [place] [address] Ganesh Alvarado MD [address] [place] [address] Social History Tobacco Use Types Packs/Day Years [...]
--- OUTSIDE RECORDS SUMMARY | 2024-10-01 11:39 | XMS_ITS | Encounter Summary ---
Author Organization [employer] Address [address] [place] [address] 7t [place] [address] Care Team Providers Care Bacteriology Teacher Name Role Phone Unavailable Primary Care Provider Unavailabl e Reason for Visit * Reason Comments Med Refill Encounter Details Date Type Department Care Team ([facility] st Contact Info) Description 07/29/2024 Refill [facility] CHC MED & PEDS [address] [place] [address] Ganesh Alvarado MD [address] [place] [address] Social History Tobacco Use Types Packs/Day Years [...]
--- OUTSIDE RECORDS SUMMARY | 2024-10-01 11:39 | XMS_ITS | Encounter Summary ---
Author Organization [employer] Address [address] [place] [address] 7 [place] [address] Care Team Providers Care Tobacco Hanger Name Role Phone Ganesh Alvarado MD Primary Care Provider [phone] Reason for Visit * Reason Comments Med Refill Encounter Details Date Type Department Care Team (Late st Contact Info) Description 08/06/2023 Refill [facility] MEDICINE [address] [place] [address] Ganesh Alvarado MD [address] [place], [place] [id number] Social History Tobacco Use Types Packs/Day Years [...] on filedocumented in this encounter Care Teams Tobacco Hanger Relationship Specialty Start Date End Date Ganesh Alvarado MD [address] [place] [address] PCP - General Internal Medicine 12/21/17 09/05/23 documented as of this encounter
--- OUTSIDE RECORDS SUMMARY | 2024-10-01 11:39 | XMS_ITS | Encounter Summary ---
Author Organization [employer] Address [address] [place] [address] 7 [place] [address] Care Team Providers Care Lawn Mower Operator Name Role Phone Unavailable Primary Care Provider Unavailabl e Reason for Visit * Reason Comments Med Refill Encounter Details Date Type Department Care Team ([facility] st Contact Info) Description 08/26/2024 Refill [facility] CHC MED & PEDS [address] [place] [address] Ganesh Alvarado MD [address] [place] [address] Social History Tobacco Use Types Packs/Day Years [...]
--- OUTSIDE RECORDS SUMMARY | 2024-10-01 11:39 | XMS_ITS | Encounter Summary ---
Author Organization [employer] Address [address] [place] [address] 7 [place] [address] Care Team Providers Care Parts Designer Name Role Phone Ganesh Alvarado MD Primary Care Provider [phone] Encounter Details Date Type Department Care Team ([facility] st Contact Info) Description 11/24/2022 Abstract [facility] CHC MED & PEDS [address] [place] [address] Ganesh Alvarado MD [address] [place] [address] Social History Tobacco Use Types Packs/Day Years [...] on filedocumented in this encounter Care Teams Parts Designer Relationship Specialty Start Date End Date Ganesh Alvarado MD [address] [place] [address] PCP - General Internal Medicine 12/21/17 09/05/23 documented as of this encounter
--- OUTSIDE RECORDS SUMMARY | 2024-10-01 11:39 | XMS_ITS | Encounter Summary ---
Author Organization [employer] Address [address] [place] [address] [address]t [place] [address] Care Team Providers Care Loss Prevention Supervisor Name Role Phone Unavailable Primary Care Provider Unavailabl e Reason for Visit * Reason Comments Med Refill Encounter Details Date Type Department Care Team ([facility] st Contact Info) Description 11/02/2023 Refill [facility] CHC MED & PEDS [address] [place] [address] Ganesh Alvarado MD [address] [place] [address] Social History Tobacco Use Types Packs/Day Years [...]
--- OUTSIDE RECORDS SUMMARY | 2024-10-01 11:39 | XMS_ITS | Encounter Summary ---
Author Organization [employer] Address [address] [place] [address] 7 [place] [address] Care Team Providers Care Aquatic Physiotherapist Name Role Phone Ganesh Alvarado MD Primary Care Provider [phone] Reason for Visit * Reason Comments Med Refill Encounter Details Date Type Department Care Team (Late st Contact Info) Description 06/08/2023 Refill [facility] CHC MED & PEDS [address] [place] [address] Ganesh Alvarado MD [address] [place] [address] Social History Tobacco Use Types Packs/Day Years [...] on filedocumented in this encounter Care Teams Aquatic Physiotherapist Relationship Specialty Start Date End Date Ganesh Alvarado MD [address] [place] [address] PCP - General Internal Medicine 12/21/17 09/05/23 documented as of this encounter
--- OUTSIDE RECORDS SUMMARY | 2024-10-01 11:39 | XMS_ITS | Encounter Summary ---
Author Organization [employer] Address [address] [place] [address] [address] [place] [address] Care Team Providers Care Inspector Metal Fabricating Name Role Phone Unavailable Primary Care Provider Unavailabl e Reason for Visit * Reason Comments Med Refill Encounter Details Date Type Department Care Team (Late st Contact Info) Description 10/18/2023 Refill [facility] MEDICINE [address] [place] [address] Ganesh Alvarado MD [address] [place] [address] Social History Tobacco Use Types Packs/Day Years [...]
--- NOTE | 2024-10-01 11:45 | P.HPHOSP_ITS ---
History of Present Illness Date of Service: 10/01/24 Attending physician on admission: Daniele Núñez Chief Complaint: Dizziness and diarrhea Pt is a 69-year-old female with a PMH significant for?paroxysmal AFib/flutter s/p ablation 05/06/21 on Eliquis, asthma, HTN, HLD, insulin-dependent type 2 diabetes, peripheral neuropathy, hx of DVT, and thyroid carcinoma s/p thyroidectomy with resultant hypothyroidism who presents to the ED with?dizziness since yesterday afternoon. Pt reports began experiencing dizziness with standing yesterday around 14:00. No falls or loss of consciousness. This morning upon awakening pt reports and dizziness while lying in bed and called EMS to bring her to the ED. Also reports experiencing multiple episodes of diarrhea since yesterday, the pt reports has a long hx of chronic diarrhea stemming from metformin and diet. Denies chest pain/pressure, palpitations. No fever, chills. Denies shortness or breath or difficulty breathing. In the ED pt was tachycardic to 153 and tachypneic up to 22. Labs were significant for leukocytosis 12.8, potassium 3.0, lactic acid 2.4, and initial troponin 26.7. Stable H&H. Renal function WNL. Hepatic function WNL. CXR showed cardiomegaly without acute cardiopulmonary process. EKG demonstrated sinus tachycardia of 142 with QTc 556, with repeat EKG showing AFib of 82 with RBBB and QTc of 497. Pt was treated with IVF, diltiazem 15 mg IV, potassium chloride 40 mEq p.o., and started on diltiazem drip. Pt will be admitted to the hospital for treatment and further evaluation of symptomatic AFib with RVR. Review of Systems 2 Review of Systems: Negative except for that which is stated in the HPI. 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 Mother Arthritis Surgical History Hx of colonoscopy Hx of total thyroidectomy Hx of hysterectomy Social History Household Members: Family Housing: House Do you presently have visiting nurse or other home services: Yes (WINDOW/DISTRIBUTION CLERK) Alcohol intake: never Patient Tobacco Use Status: Never used Tobacco e-Cigarette/Vaping Use: Never Used Second Hand Smoke Exposure: No Advance Directives: No Advance Directives Information Provided: Yes Do you have a plan to hurt others: No Plan service: No Current occupational status: disabled Cognitive needs: No Hearing needs: No Vision needs: No Meds Allergies Allergy/AdvReac Type Severity Reaction Status Date / Time empagliflozin Allergy Intermediate ITCHY/RASH Verified 10/01/24 08:24 [From JARDIANCE] JARDIANCE Allergy Intermediate pruritus Uncoded 10/01/24 08:24 Active Medications: Current Medications Diltiazem HCl 125 mg/ Sodium (Chloride) 125 mls @ 0 mls/hr IVCONT .Q0M RENU; Protocol Last Titration: 10/01/24 11:22 Dose: 15 mg/hr, 15 mls/hr Home Medications ?Medication ?Instructions ?Recorded ?Confirmed ?Last Taken ?Type metformin 500 mg tablet,extended 1,000 mg PO DAILY 07/09/24 10/01/24 09/30/24 History release 24 hr apixaban 5 mg tablet (Eliquis) 5 mg PO BID 10/01/24 10/01/24 09/30/24 History dulaglutide 4.5 mg/0.5 mL 4.5 mg subcut MO 10/01/24 10/01/24 09/29/24 History subcutaneous pen injector (Trulicity) insulin degludec 100 unit/mL (3 7 unit subcut DAILY 10/01/24 10/01/24 09/30/24 History mL) subcutaneous pen (Tresiba FlexTouch U-100 insulin) insulin lispro 100 unit/mL 5 unit subcut TID 10/01/24 10/01/24 09/30/24 History subcutaneous pen (Humalog KwikPen (U-100) Insulin) lisinopril 10 mg tablet 5 mg PO DAILY 10/01/24 10/01/24 09/30/24 History Physical Exam 2 Vital Signs and Narrative: Vital Signs: Last Vital Signs Temp 97.5 F 10/01/24 10:46 Pulse 145 H 10/01/24 11:22 Resp 17 10/01/24 11:22 BP 123/97 H 10/01/24 11:22 Pulse Ox 99 10/01/24 10:14 O2 Del Method Room Air 10/01/24 10:14 BMI result Body Mass Index 35.0 General: AOx3, no acute distress Resp: CTA bilaterally CVS: Irregularly irregular rhythm GI: +BS, no distension, mild epigastric tenderness Skin: Warm, dry Neuro: Cranial nerves II-XII grossly intact bilaterally. Motor grossly intact bilaterally Extremities: No edema Psych: Appropriate affect Results Labs 10/01/24 08:53 10/01/24 08:53 Labs: Laboratory Results - last 24 hr 10/01/24 10/01/24 08:40 08:53 MCV 61.8 L MCH 18.5 L MCHC 29.9 L RDW 20.3 H Plt Count 393 D MPV Not Reportable Immature Gran % (Auto) 0.4 Neut % (Auto) 70.4 Lymph % (Auto) 23.7 [place] % (Auto) 3.8 Eos % (Auto) 1.2 Baso % (Auto) 0.5 Lymph # (Auto) 3.0 [place] # (Auto) 0.5 Eos # (Auto) 0.2 Baso # (Auto) 0.1 Abs Immat Gran (auto) 0.05 H Absolute Neuts (auto) 9.0 H Absolute Nucleated RBC 0.000 Nucleated RBC % (auto) 0.0 Smear Tech's Comments VERIFIED ESR 7 PT 11.4 INR 1.0 Anion Gap 14 Estim Creat Clear Calc 49.5 Estimated GFR 53 Random Glucose 82 Lactic Acid 2.4 H* Calcium 9.6 D Total Bilirubin 0.4 AST 27 ALT 11 Alkaline Phosphatase 102 Total Protein 7.8 Albumin 3.9 Imaging Radiologist's Impressions: Impressions Chest X-Ray 10/01/24 08:55 IMPRESSION: Cardiomegaly. No acute cardiopulmonary abnormality. Electronically signed by: Kofi Ohara MD 10/01/2024 09:08 AM EDT Assessment and Plan (1) Atrial fibrillation with rapid ventricular response: Status: Acute Plan Pt is a 69-year-old female with a PMH significant for?paroxysmal AFib/flutter s/p ablation 05/06/21 on Eliquis, asthma, HTN, HLD, insulin-dependent type 2 diabetes, peripheral neuropathy, hx of DVT, and thyroid carcinoma s/p thyroidectomy with resultant hypothyroidism who presents to the ED with?dizziness since yesterday afternoon. Pt will be admitted to the hospital for treatment and further evaluation of symptomatic AFib with RVR. Symptomatic AFib with RVR Pt with dizziness x2 days, heart rate as high as 150s Pt given diltiazem 15 mg IV and started on diltiazem drip in the ED Will continue to drip for now, wean as tolerated Check TSH Continue home metoprolol Monitor on telemetry Acute lactic acidosis Initial lactic acid 2.43.2.0 Secondary to metformin use, not sepsis No indication of active bacterial infection Leukocytosis reactionary, tachycardia secondary to AFib with RVR No indication for antibiotics at this time Acute hypokalemia Potassium 3.0 at time of presentation Likely secondary to GI losses from acute on chronic diarrhea Supplemented with potassium 40 mEq p.o. in the ED Will give additional potassium 40 mEq p.o. Follow up potassium Monitor on telemetry Elevated troponins Initial troponin 26.7 with repeat flat at 34.7 Pt asymptomatic, EKG without significant ischemic changes Likely type 2 in the setting of increased demand Monitor on telemetry Acute on chronic diarrhea, abdominal pain Multiple episodes of diarrhea yesterday and this morning Pt reports has had multiple similar episodes in the past she attributes to metformin use and diabetes Similar presentation when hospitalized on 07/09/[address] of abdomen pelvis, GI panel negative Likely secondary to metformin use Hold metformin Consider discontinuing metformin upon discharge due to potential GI upset Will check GI panel and C diff to r/o infectious etiologies Insulin-dependent type [address] on sliding scale insulin, Lantus Diabetic diet Hypothyroidism Continue levothyroxine Asthma Not in acute exacerbation Continue home inhalers Full Code Attending:?Dr. Núñez DVT Prophylaxis: Lovenox Pt will require a hospitalization of at least two nights for treatment and further evaluation of acute symptomatic AFib with RVR requiring diltiazem drip and close cardiac monitoring. Quality Stroke Does the patient have a stroke diagnosis?: No VTE Prior VTE?: No VTE Risk Level:: Medical - moderate - high VTE Device Contraindication: Treatment Not Indicated VTE Drug Contraindication: N/A - Med Ordered
--- NOTE | 2024-10-01 12:09 | PC.NURSE ---
target HR met, current heart rate 82, pt denies CP/palp/dizziness. Pt is normotensive, AA&OX4, remains on continuous telemetry. Call amado within reach.
[2024-10-01 12:44] LABS: Glucose, Whole Blood 85 mg/dL (60-115)
--- NOTE | 2024-10-01 12:54 | PHA.MEDREC ---
Pharmacy Consult ? Medication Reconciliation Pharmacy has completed the medication reconciliation. Spoke to patient through japanese interpreter service (Malgorzata) to confirm med list. Patient was able to tell me all her medications. Patient states she is not taking Diclofenac sod 1% gel, and Ferrous sulfate 325 mg. Patient confirmed she takes Tresiba Flex touch 7 units daily at 12:00pm , Humalog KwikPen 5 units TID, Trulicity 4.5 mg is every Sunday, last dose was 09/29/24. Patient states she takes Lisinopril 5 mg daily , however last fill was for 10 mg. left 5 mg on med rec.
--- NOTE | 2024-10-01 12:59 | PHA.MEDREC ---
Addendum entered by Akil Alvarado RPh 10/01/24 13:37: Last fill of lisinopril was for 10 mg but quantity was 15 for 30 day supply so it matches with patient's claim of taking 5 mg daily. Med rec was reviewed by [facility]. Original Note: Pharmacy Consult ? Medication Reconciliation Pharmacy has completed the medication reconciliation. Spoke to patient through business mail entry clerk service (Malgorzata) to confirm med list. Patient was able to tell me all her medications. Patient states she is not taking Diclofenac sod 1% gel, and Ferrous sulfate 325 mg. Patient confirmed she takes Tresiba Flex touch 7 units daily at 12:00pm , Humalog KwikPen 5 units TID, Trulicity 4.5 mg is every Sunday, last dose was 09/29/24. Patient states she takes Lisinopril 5 mg daily , however last fill was for 10 mg. left 5 mg on med rec.
[2024-10-01] MEDS: Potassium Chloride Packet 20 MEQ PACKET 40 MEQ PO (13:49)
[2024-10-01 14:24] LABS: Troponin-I High Sensitivity 34.7 ng/L (<3.5-17.0)
[2024-10-01 15:54] LABS: CDiff Gene PCR NEGATIVE (Negative)
[2024-10-01 16:46] LABS: Glucose, Whole Blood 159 mg/dL (60-115)
[2024-10-01 16:57] LABS: Thyroid Stimulating Hormone 4.39 uIU/mL (0.32-4.0)
[2024-10-01 21:29] LABS: Glucose, Whole Blood 178 mg/dL (60-115)
--- NOTE | 2024-10-01 21:32 | PC.NURSE ---
pt transported to telemetry floor room 450 escorted by this RN and fiberglass quality technician, pt on continuous telemetry monitoring
[2024-10-01] MEDS: Apixaban 5 MG TABLET PO (22:08)
[2024-10-01] MEDS: Insulin Lispro 100 UNIT/ML 3 ML VIAL SUBCUT (22:09)
[2024-10-01] MEDS: 0.9 % Sodium Chloride Flush 3 ML SYRINGE IVFLUSH (22:09)
[2024-10-01] MEDS: Metoprolol Tartrate 12.5 MG HALFTAB PO (22:11)
[2024-10-02] VITALS (10 sets, daily range): BP systolic 108–141; BP diastolic 54–93; PULSE 63–131; RESP 16–20; TEMP 36.1–36.7; O2SAT 96–99
[2024-10-02 06:11] LABS: Hemoglobin 11.7 g/dl (12.0-16.0); PLT ABN DIST 1
[2024-10-02 06:13] LABS: Hematocrit 39.9 % (37.0-47.0); Mean Corpuscular HGB Conc 29.3 g/dl (31.0-35.0); Mean Corpuscular Hemoglobin 18.3 pg (27.0-33.0); Platelet Count 332 X10*3/uL (160-400); Red Blood Count 6.39 X10*6/uL (4.20-5.50); Red Cell Distribution Width 19.3 % (11.0-16.0); White Blood Count 7.9 X10*3/uL (4.8-10.8)
[2024-10-02 06:14] LABS: Mean Corpuscular Volume 62.4 fL (80.0-98.0)
[2024-10-02 06:21] LABS: Anion Gap 13 (12-20); Blood Urea Nitrogen 16 mg/dL (9-16); Calcium 9.1 mg/dL (8.4-10.2); Carbon Dioxide 24 mmol/L (22-29); Chloride 109 mmol/L (96-108); Creatinine Clr Calc Pharmacy 64.3; Estimated Glomerular Filt Rate > 60; Glucose Random 131 mg/dL (60-115); Potassium 3.9 mmol/L (3.3-5.1); Sodium 142 mmol/L (135-145)
[2024-10-02] MEDS: Metoprolol Succinate ER 25 MG TAB.ER.24H PO (06:35)
[2024-10-02 07:25] LABS: Glucose, Whole Blood 150 mg/dL (60-115)
[2024-10-02] MEDS: Apixaban 5 MG TABLET PO ×2 (08:05→21:36)
[2024-10-02] MEDS: Cholecalciferol (Vitamin D3) 25 MCG TABLET 50 MCG PO (08:05)
[2024-10-02] MEDS: Insulin Glargine,Hum.rec.anlog 100 UNIT/ML 10 ML VIAL SUBCUT (08:05)
[2024-10-02] MEDS: Atorvastatin Calcium 80 MG TABLET PO (08:05)
[2024-10-02 09:53] LABS: Adenovirus F 40/41 Not Detected (Not Detect.); Astrovirus Not Detected (Not Detect.); Campylobacter Not Detected (Not Detect.); Cryptosporidium Not Detected (Not Detect.); Cyclospora cayetanensis Not Detected (Not Detect.); E. coli EAEC Not Detected (Not Detect.); E. coli EPEC Not Detected (Not Detect.); E. coli ETEC Not Detected (Not Detect.); E. coli STEC Not Detected (Not Detect.); Entamoeba histolytica Not Detected (Not Detect.); Giardia lamblia Not Detected (Not Detect.); Norovirus GI/GII Not Detected (Not Detect.); Plesiomonas shigelloides Not Detected (Not Detect.); Rotavirus A Not Detected (Not Detect.); Salmonella Not Detected (Not Detect.); Sapovirus Not Detected (Not Detect.); Shigella sp./EIEC Not Detected (Not Detect.); Vibrio Not Detected (Not Detect.); Vibrio Cholerae Not Detected (Not Detect.); Yersinia enterocolitica Not Detected (Not Detect.)
[2024-10-02 11:00] LABS: Glucose, Whole Blood 274 mg/dL (60-115)
[2024-10-02] MEDS: dilTIAZem HCL 125 MG in 0.9 % Sodium Chloride 100 ML IVCONT (11:17)
[2024-10-02] MEDS: Metoprolol Tartrate 25 MG TABLET PO (11:18)
--- NOTE | 2024-10-02 11:18 | MHC.CM.PN ---
IMM /. This CM met with pt with the assistance of a application security specialist. Pt lives at home with her daughter and son-in-law, they are her NIP WRAPPER's. Pt has 14 hours of NIP WRAPPER care per week. Pt uses a cane and a walker. Education provided on HCP, pt declines to complete one at this time. Pts daughter will transport her home at discharge. PCP: Dr. Jo Montiel
[2024-10-02 11:36] LABS: Estimated Average Glucose 212 mg/dL; Hemoglobin A1C 234.6281 umol/L; Total Hemoglobin (HGBA1C) 3145.1719 umol/L
[2024-10-02] MEDS: Insulin Lispro 100 UNIT/ML 3 ML VIAL SUBCUT ×3 (12:00→21:36)
[2024-10-02 15:27] LABS: Glucose, Whole Blood 166 mg/dL (60-115)
--- NOTE | 2024-10-02 16:48 | HO.PM.IMPN ---
Subjective Subjective Date of Service: 10/02/24 Interval History: History obtained via hot dipper, patient denies chest pain, no palpitations, denies lightheadedness dizziness, no nausea, no vomiting or abdominal pain complaining of intermittent diarrhea that she relates to metformin use. Noted to have heart rate in 120s currently on IV Cardene drip 10 mcg. Review of Systems All other system reviewed and negative Physical Exam Vital Signs: Vital Signs: Last Vital Signs Temp 97.2 F 10/02/24 15:17 Pulse 78 10/02/24 15:17 Resp 17 10/02/24 15:17 BP 120/60 10/02/24 15:17 Pulse Ox 98 10/02/24 15:17 O2 Del Method Room Air 10/02/24 15:17 BMI result Body Mass Index 32.8 Const: Other: General resting comfortably in no acute distress. Neck no JVD. CVS irregular rate rhythm, Respiratory lungs clear to auscultation, no respiratory distress, no wheeze, no rhonchi. Gastrointestinal abdomen soft, non tender, bowel sounds audible. Extremities no edema. Neuro non focal Skin no rash Appropriate affect Objective Data Active Medications Acetaminophen (Acetaminophen 325 Mg Tablet) 650 mg PO Q6H PRN PRN Reason: Pain, Mild 1-3,fever,headache Albuterol Sulfate (Albuterol Sulfate 90 Mcg 8 Gm Inhaler) 2 puff INHALE Q6H PRN PRN Reason: shortness of breath or wheezing Apixaban (Apixaban 5 Mg Tablet) 5 mg PO BID [facility] Last Admin: 10/02/24 08:05 Dose: 5 mg Documented By: TRUDI Atorvastatin Calcium (Atorvastatin Calcium 80 Mg Tablet) 80 mg PO DAILY [facility] Last Admin: 10/02/24 08:05 Dose: 80 mg Documented By: TRUDI Calcium Carbonate (Calcium Carbonate 750 Mg Tab.Chew) 750 mg PO Q4H PRN PRN Reason: Heartburn Dextrose (Dextrose 50 % 25 Gm/50 Ml Syringe) 25 gm IVPUSH Q15M PRN; Protocol PRN Reason: per Hypoglycemia Standing Ord. Glucose (Glucose Gel 15 Gm Gel..Gram.) 15 gm PO Q15M PRN; Protocol PRN Reason: per Hypoglycemia Standing Ord. Diltiazem HCl 125 mg/ Sodium (Chloride) 125 mls @ 0 mls/hr IVCONT .Q0M [facility]; Protocol Last Titration: 10/02/24 13:16 Dose: 5 mg/hr, 5 mls/hr Documented By: TRUDI Insulin Glargine (Insulin Glargine,Hum.Rec.Anlog 100 Unit/Ml 10 Ml Vial) 5 unit SUBCUT DAILY [facility] Last Admin: 10/02/24 08:05 Dose: 5 unit Documented By: TRUDI Insulin Human Lispro (Insulin Lispro 100 Unit/Ml 3 Ml Vial) 0 unit SUBCUT QIDACHS [facility]; Protocol Last Admin: 10/02/24 16:47 Dose: 2 unit Documented By: TRUDI Levothyroxine Sodium (Levothyroxine Sodium 112 Mcg Tablet) 112 mcg PO DAILY@0600 [facility] Levothyroxine Sodium (Levothyroxine Sodium 25 Mcg Tablet) 25 mcg PO DAILY@0600 [facility] Magnesium Hydroxide (Milk Of Magnesia 30 Ml Oral.Susp) 30 ml PO DAILY PRN PRN Reason: Constipation Melatonin (Melatonin 3 Mg Tablet) 6 mg PO BEDTIME PRN PRN Reason: Insomnia Metoprolol Succinate (Metoprolol Succinate Er 25 Mg Tab.Er.24h) 25 mg PO DAILY [facility]; Protocol Last Admin: 10/02/24 06:35 Dose: 25 mg Documented By: ANTONIO Comments: ordered to give early per Dr. Tenorio Sodium Chloride (0.9 % Sodium Chloride Flush 3 Ml Syringe) [facility] Admin: 10/02/24 15:40 Dose: Not Given Documented By: TRUDI Non-Admin Reason: Previously Administered Vitamin D (Cholecalciferol (Vitamin D3) 25 Mcg Tablet) 50 mcg PO DAILY [facility] Last Admin: 10/02/24 08:05 Dose: 50 mcg Documented By: TRUDI Labs 10/02/24 05:37 10/02/24 05:37 Labs: Laboratory Results - last 24 hr 10/01/24 10/01/24 10/01/24 12:39 14:30 21:26 MCV MCH MCHC RDW Plt Count MPV Absolute Nucleated RBC Nucleated RBC % (auto) Anion Gap Estim Creat Clear Calc Estimated GFR POC Glucose 178 H Random Glucose Estimat Average Glucose Hemoglobin A1c % Calcium TSH 4.39 H Stl C. cayetanensis PCR Not Detected Stool Rotavirus A PCR Not Detected Stl Adenov F 40/41 PCR Not Detected Stool Astrovirus (PCR) Not Detected Stool Campylobacter PCR Not Detected Stool Cryptosporidium PCR Not Detected Stl Sh Tox Pr E STEC PCR Not Detected Stool E coli O157 PCR Not applicable Stl Enterotoxigenic E PCR Not Detected Stool EPEC (PCR) Not Detected Stool EAEC (PCR) Not Detected Stl E. histolytica PCR Not Detected Stool Giardia Lamblia PCR Not Detected Stl P. shigelloides PCR Not Detected Stool Salmonella PCR Not Detected Stool Sapovirus (PCR) Not Detected Stl Shigella/EIEC PCR Not Detected St Y.enterocolitica PCR Not Detected Stool Vibrio (PCR) Not Detected Stl Vibrio cholerae PCR Not Detected Stl Norovirus GI/GII PCR Not Detected 10/02/24 10/02/24 10/02/24 05:37 07:01 10:46 MCV 62.4 L MCH 18.3 L MCHC 29.3 L RDW 19.3 H Plt Count 332 MPV 11.0 Absolute Nucleated RBC 0.000 Nucleated RBC % (auto) 0.0 Anion Gap 13 Estim Creat Clear Calc 64.3 Estimated GFR > 60 POC Glucose 150 H 274 H Random Glucose 131 H Estimat Average Glucose 212 Hemoglobin A1c % 9.0 H Calcium 9.1 TSH Stl C. cayetanensis PCR Stool Rotavirus A PCR Stl Adenov F 40/ PCR Stool Astrovirus (PCR) Stool Campylobacter PCR Stool Cryptosporidium PCR Stl Sh Tox Pr E STEC PCR Stool E coli O157 PCR Stl Enterotoxigenic E PCR Stool EPEC (PCR) Stool EAEC (PCR) Stl E. histolytica PCR Stool Giardia Lamblia PCR Stl P. shigelloides PCR Stool Salmonella PCR Stool Sapovirus (PCR) Stl Shigella/EIEC PCR St Y.enterocolitica PCR Stool Vibrio (PCR) Stl Vibrio cholerae PCR Stl Norovirus GI/GII PCR 10/02/24 15:23 MCV MCH MCHC RDW Plt Count MPV Absolute Nucleated RBC Nucleated RBC % (auto) Anion Gap Estim Creat Clear Calc Estimated GFR POC Glucose 166 H Random Glucose Estimat Average Glucose Hemoglobin A1c % Calcium TSH Stl C. cayetanensis PCR Stool Rotavirus A PCR Stl Adenov F 40/41 PCR Stool Astrovirus (PCR) Stool Campylobacter PCR Stool Cryptosporidium PCR Stl Sh Tox Pr E STEC PCR Stool E coli O157 PCR Stl Enterotoxigenic E PCR Stool EPEC (PCR) Stool EAEC (PCR) Stl E. histolytica PCR Stool Giardia Lamblia PCR Stl P. shigelloides PCR Stool Salmonella PCR Stool Sapovirus (PCR) Stl Shigella/EIEC PCR St Y.enterocolitica PCR Stool Vibrio (PCR) Stl Vibrio cholerae PCR Stl Norovirus GI/GII PCR Microbiology Microbiology Results: Microbiology 10/01/24 08:53 Blood Culture - Preliminary Blood - Venous No growth after 24 hours. 10/01/24 08:53 Blood Culture - Preliminary Blood - Venous No growth after 24 hours. Assessment and Plan (1) Acidosis, lactic: Status: Acute (2) Acute hypokalemia: Status: Acute (3) Atrial fibrillation with rapid ventricular response: Status: Acute Plan 69-year-old female with a PMH significant for?paroxysmal AFib/flutter s/p ablation 05/06/21 on Eliquis, asthma, HTN, HLD, insulin-dependent type 2 diabetes, peripheral neuropathy, hx of DVT, and thyroid carcinoma s/p thyroidectomy with resultant hypothyroidism who presents to the ED with?dizziness since yesterday afternoon. Pt will be admitted to the hospital for treatment and further evaluation of symptomatic AFib with RVR. Symptomatic AFib with RVR Dizziness resolved heart rate improved will DC IV Cardizem drip will increase dose of metoprolol to 50 mg daily TSH 4.39 Monitor on telemetry Recommend outpatient follow-up with primary associate director of biostatistics from [facility] Acute lactic acidosis Initial lactic acid 2.43.2.0 Secondary to metformin use, not sepsis Leukocytosis reactionary, tachycardia secondary to AFib with RVR No indication for antibiotics at this time Acute hypokalemia Likely secondary to GI losses from acute on chronic diarrhea Repleted, and normalized Elevated troponins Initial troponin 26.7 with repeat flat at 34.7 likely due to atrial fibrillation with rvr,, patient asymptomatic EKG without acute ischemic changes no further workup warranted Acute on chronic diarrhea, abdominal pain History of intermittent diarrhea as per patient likely due to metformin C diff and GI panel negative Similar presentation when hospitalized on 07/09/[address] of abdomen pelvis, GI panel negative Consider discontinuing metformin upon discharge due to potential GI upset Insulin-dependent type 2 diabetes Hold metformin/hemoglobin A1c 9 Place on sliding scale insulin, Lantus, will discharge on glipizide 5 mg and recommend outpatient 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
[2024-10-02 20:26] LABS: Glucose, Whole Blood 169 mg/dL (60-115)
[2024-10-02] MEDS: 0.9 % Sodium Chloride Flush 3 ML SYRINGE IVFLUSH (21:43)
[2024-10-03 02:59] VITALS: BP 128/86; PULSE 115; RESP 20; TEMP 36.1; O2SAT 97
[2024-10-03] MEDS: Levothyroxine Sodium 112 MCG TABLET PO (05:55)
[2024-10-03] MEDS: Levothyroxine Sodium 25 MCG TABLET PO (05:55)
[2024-10-03 06:29] LABS: Anion Gap 11 (12-20); Blood Urea Nitrogen 17 mg/dL (9-16); Calcium 8.7 mg/dL (8.4-10.2); Carbon Dioxide 28 mmol/L (22-29); Chloride 106 mmol/L (96-108); Creatinine Clr Calc Pharmacy 57.2; Estimated Glomerular Filt Rate > 60; Glucose Random 183 mg/dL (60-115); Potassium 3.8 mmol/L (3.3-5.1); Sodium 141 mmol/L (135-145)
[2024-10-03 06:35] LABS: Hematocrit 37.4 % (37.0-47.0); Mean Corpuscular HGB Conc 29.4 g/dl (31.0-35.0); Mean Corpuscular Hemoglobin 18.3 pg (27.0-33.0); Platelet Count 319 X10*3/uL (160-400); Red Cell Distribution Width 18.6 % (11.0-16.0); White Blood Count 8.5 X10*3/uL (4.8-10.8)
[2024-10-03 06:39] LABS: Mean Corpuscular Volume 62.3 fL (80.0-98.0)
[2024-10-03 06:54] VITALS: BP 119/77; PULSE 100; RESP 18; TEMP 36.3; O2SAT 98
[2024-10-03 07:01] LABS: Glucose, Whole Blood 174 mg/dL (60-115)
[2024-10-03] MEDS: Cholecalciferol (Vitamin D3) 25 MCG TABLET 50 MCG PO (07:56)
[2024-10-03] MEDS: Insulin Glargine,Hum.rec.anlog 100 UNIT/ML 10 ML VIAL SUBCUT (07:56)
[2024-10-03] MEDS: Metoprolol Succinate ER 50 MG TAB.ER.24H PO (07:57)
[2024-10-03] MEDS: Atorvastatin Calcium 80 MG TABLET PO (07:57)
[2024-10-03] MEDS: glipiZIDE XL 5 MG TAB.ER.24 PO (07:57)
[2024-10-03] MEDS: Apixaban 5 MG TABLET PO ×2 (07:57→20:10)
[2024-10-03] MEDS: 0.9 % Sodium Chloride Flush 3 ML SYRINGE IVFLUSH ×3 (07:58→23:55)
[2024-10-03] MEDS: Insulin Lispro 100 UNIT/ML 3 ML VIAL SUBCUT ×3 (07:58→16:41)
--- NOTE | 2024-10-03 10:04 | P.CONCA_ITS ---
History of Present Illness History of Present Illness Date of Service: 10/03/24 Chief complaint: AFIB W/RVR Narrative: This is a cardiology consultation regarding atrial fibrillation. She was seen in consultation in July. At that time, she was having several GI complaints including nausea, vomiting, diarrhea, abdominal pain. In that context, she was seen regarding atrial flutter with rapid ventricular response. She was given metoprolol/diltiazem IV and then she converted back to sinus rhythm. There was a history of atrial fibrillation/flutter and she had ablation for that in 2020. Then she was apparently put on amiodarone and then stopped. There was a question if she was supposed to be on metoprolol ER 100 mg daily but was not clarified and eventually, she was sent home on a small dose of metoprolol. Any case, she is now admitted for complaints of dizziness. Additionally, she is having multiple episodes of diarrhea. There is apparently history of chronic diarrhea thought to be from metformin/tired. Any case, she was again thought to be in atrial fibrillation with rapid rate and hence admitted. She has got an IV diltiazem and then put on a drip. Currently, she states she feels fine. She has got no cardiac symptoms. She follows up with Dr. Pal at [facility] and has an appointment coming up in December. Review of Systems 2 Review of Systems: Yes all other systems are reviewed and are negative Constitutional: Constitutional: Reports as per HPI and Reports no additional constitutional complaints Eyes: Eyes: Reports as per HPI and Denies no additional eye complaints ENT: Denies system reviewed and no additional complaints, except as documented and Reports as per HPI Cardiovascular: Cardiovascular: Reports as per HPI, Reports no additional cardiovascular complaints, Denies acrocyanosis, Denies cool extremities, Denies chest pain, Denies leg edema, Denies lightheadedness, Denies palpitations and Denies dyspnea Respiratory: Respiratory: Reports as per HPI, Denies no additional respiratory complaints and Denies dyspnea Gastrointestinal: Gastrointestinal: Reports as per HPI and Denies no additional gastrointestinal complaints Genitourinary: Genitourinary: Reports as per HPI Musculoskeletal: Musculoskeletal: Reports no additional musculoskeletal complaints and Reports as per HPI Integumentary/Breasts: Skin/Breast: Reports system reviewed and no additional complaints, except as docu Neurologic: Reports system reviewed and no additional complaints, except as documented and Reports as per HPI Psychiatric: Psychiatric: Reports no additional psychiatric complaints and Reports as per HPI Endocrine: Endocrine: Reports no additional endocrine complaints, Reports as per HPI and Denies palpitations Hematologic/Lymphatic: Hematologic/Lymphatic: Reports no additional hematologic/lymphatic complaints and Reports as per HPI Allergic/Immunologic: Allergic/Immunologic: Reports no additional allergic/immunologic complaints and Reports as per HPI [facility] Past Medical History Medical History Hypothyroidism Asthma Pericardial effusion Pneumonitis Pleural effusion Hypoglycemia unawareness associated with type 2 diabetes mellitus 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 Mother Arthritis Surgical History Surgical History Hx of colonoscopy Hx of total thyroidectomy Hx of hysterectomy Social History Social History Household Members: Spouse and Children Housing: Apartment Do you presently have visiting nurse or other home services: Yes (Daughter is AIRPLANE MECHANIC) Alcohol intake: never Patient Tobacco Use Status: Never used Tobacco Smoked in Last 30 Days: No e-Cigarette/Vaping Use: Never Used Patient Interested in Nicotine Replacement: No Patient Given Instructions on How to Stop Smoking: No Second Hand Smoke Exposure: No Use of substances other than those prescribed or required for medical reasons: No Currently Displaying Signs/Symptoms of Drug Intoxication Withdrawal: No Any prior treatment program specific to substance use: No Have you been hit, kicked, punched, or otherwise hurt by someone within the past year? If so, by whom?: No Do you feel safe in your current relationship?: Yes Is there a partner from a previous relationship who is making you feel unsafe now?: No Are you made to feel afraid or neglected: No [facility] Practices: [employer] Advance Directives: No Advance Directives Information Provided: Yes Advance Directives on File: No Do you have a plan to hurt others: No Plan Recently lost weight without trying: No Eating poorly because of decreased appetite: No Nutrition Risks: No Nutritional Risk Patient : No : No Poor oral hygiene: No service: No Current occupational status: disabled Cognitive needs: No Hearing needs: No Vision needs: No Meds Allergies Allergy/AdvReac Type Severity Reaction Status Date / Time empagliflozin Allergy Intermediate ITCHY/RASH Verified 10/01/24 08:24 [From JARDIANCE] JARDIANCE Allergy Intermediate pruritus Uncoded 10/01/24 08:24 Active Medications: Current Medications Acetaminophen (Acetaminophen 325 Mg Tablet) 650 mg PO Q6H PRN PRN Reason: Pain, Mild 1-3,fever,headache Albuterol Sulfate (Albuterol Sulfate 90 Mcg 8 Gm Inhaler) 2 puff INHALE Q6H PRN PRN Reason: shortness of breath or wheezing Apixaban (Apixaban 5 Mg Tablet) 5 mg PO BID [facility] Last Admin: 10/03/24 07:57 Dose: 5 mg Atorvastatin Calcium (Atorvastatin Calcium 80 Mg Tablet) 80 mg PO DAILY [facility] Last Admin: 10/03/24 07:57 Dose: 80 mg Calcium Carbonate (Calcium Carbonate 750 Mg Tab.Chew) 750 mg PO Q4H PRN PRN Reason: Heartburn Dextrose (Dextrose 50 % 25 Gm/50 Ml Syringe) 25 gm IVPUSH Q15M PRN; Protocol PRN Reason: per Hypoglycemia Standing Ord. Glipizide (Glipizide Xl 5 Mg Tab.Er.24) 5 mg PO DAILY [facility] Last Admin: 10/03/24 07:57 Dose: 5 mg Glucose (Glucose Gel 15 Gm Gel..Gram.) 15 gm PO Q15M PRN; Protocol PRN Reason: per Hypoglycemia Standing Ord. Insulin Glargine (Insulin Glargine,Hum.Rec.Anlog 100 Unit/Ml 10 Ml Vial) 5 unit SUBCUT DAILY [facility] Last Admin: 10/03/24 07:56 Dose: 5 unit Insulin Human Lispro (Insulin Lispro 100 Unit/Ml 3 Ml Vial) 0 unit SUBCUT QIDACHS [facility]; Protocol Last Admin: 10/03/24 07:58 Dose: 2 unit Levothyroxine Sodium (Levothyroxine Sodium 112 Mcg Tablet) 112 mcg PO DAILY@0600 [facility] Last Admin: 10/03/24 05:55 Dose: 112 mcg Levothyroxine Sodium (Levothyroxine Sodium 25 Mcg Tablet) 25 mcg PO DAILY@0600 [facility] Last Admin: 10/03/24 05:55 Dose: 25 mcg Magnesium Hydroxide (Milk Of Magnesia 30 Ml Oral.Susp) 30 ml PO DAILY PRN PRN Reason: Constipation Melatonin (Melatonin 3 Mg Tablet) 6 mg PO BEDTIME PRN PRN Reason: Insomnia Metoprolol Succinate (Metoprolol Succinate Er 50 Mg Tab.Er.24h) 50 mg PO DAILY [facility]; Protocol Last Admin: 10/03/24 07:57 Dose: 50 mg Sodium Chloride (0.9 % Sodium Chloride Flush 3 Ml Syringe) 3 ml IVFLUSH QSHIFT [facility] Last Admin: 10/03/24 07:58 Dose: 3 ml Vitamin D (Cholecalciferol (Vitamin D3) 25 Mcg Tablet) 50 mcg PO DAILY [facility] Last Admin: 10/03/24 07:56 Dose: 50 mcg Home Medications ?Medication ?Instructions ?Recorded ?Confirmed ?Last Taken ?Type metformin 500 mg tablet,extended 1,000 mg PO DAILY 07/09/24 10/01/24 09/30/24 History release 24 hr apixaban 5 mg tablet (Eliquis) 5 mg PO BID 10/01/24 10/01/24 09/30/24 History dulaglutide 4.5 mg/0.5 mL 4.5 mg subcut MO 10/01/24 10/01/24 09/29/24 History subcutaneous pen injector (Trulicity) insulin degludec 100 unit/mL (3 7 unit subcut DAILY 10/01/24 10/01/24 09/30/24 History mL) subcutaneous pen (Tresiba FlexTouch U-100 insulin) insulin lispro 100 unit/mL 5 unit subcut TID 10/01/24 10/01/24 09/30/24 History subcutaneous pen (Humalog KwikPen (U-100) Insulin) lisinopril 10 mg tablet 5 mg PO DAILY 10/01/24 10/01/24 09/30/24 History Physical Exam 2 Vital Signs: Vital Signs: Last Vital Signs Temp 97.3 F 10/03/24 06:54 Pulse 100 10/03/24 06:54 Resp 18 10/03/24 06:54 BP 119/77 10/03/24 06:54 Pulse Ox 98 10/03/24 06:54 O2 Del Method Room Air 10/03/24 06:54 BMI result Body Mass Index 32.8 Const: General: comfortable and no acute distress O rientation/consciousness: patient oriented x3 HEENT: Other: Unremarkable Head: Yes normal to inspection Neck: Neck: Yes normal visual inspection Chest: Chest palpation & inspection: normal inspection of the chest Resp: Auscultation: clear to auscultation bilaterally Cardio: Palpation: normal PMI Heart sounds: S1 normal heart sound present, S2 normal heart sound present, no gallops, no murmurs and no rubs GI: Palpation (GI): Soft to palpation Back/Spine/Pelvis: Other: unremarkable Skin: General skin exam: no rashes or lesions noted Neuro: General: patient oriented x3 Extrem: General: Yes normal to inspection Psych: Mental Status: mental status grossly normal Objective Labs and Meds 10/03/24 05:37 10/03/24 05:37 Lab results: Laboratory Results - last 24 hr 10/01/24 10/02/24 10/02/24 14:30 05:37 10:46 WBC RBC Hgb Hct MCV MCH MCHC RDW Plt Count MPV Absolute Nucleated RBC Nucleated RBC % (auto) Sodium Potassium Chloride Carbon Dioxide Anion Gap BUN Creatinine Estim Creat Clear Calc Estimated GFR POC Glucose 274 H Random Glucose Estimat Average Glucose 212 Hemoglobin A1c % 9.0 H Calcium Stl C. cayetanensis PCR Not Detected Stool Rotavirus A PCR Not Detected Stl Adenov F 40/41 PCR Not Detected Stool Astrovirus (PCR) Not Detected Stool Campylobacter PCR Not Detected Stool Cryptosporidium PCR Not Detected Stl Sh Tox Pr E STEC PCR Not Detected Stool E coli O157 PCR Not applicable Stl Enterotoxigenic E PCR Not Detected Stool EPEC (PCR) Not Detected Stool EAEC (PCR) Not Detected Stl E. histolytica PCR Not Detected Stool Giardia Lamblia PCR Not Detected Stl P. shigelloides PCR Not Detected Stool Salmonella PCR Not Detected Stool Sapovirus (PCR) Not Detected Stl Shigella/EIEC PCR Not Detected St Y.enterocolitica PCR Not Detected Stool Vibrio (PCR) Not Detected Stl Vibrio cholerae PCR Not Detected Stl Norovirus GI/GII PCR Not Detected 10/02/24 10/02/24 10/03/24 15:23 20:22 05:37 WBC 8.5 RBC 6.00 H Hgb 11.0 L Hct 37.4 MCV 62.3 L MCH 18.3 L MCHC 29.4 L RDW 18.6 H Plt Count 319 MPV Not Reportable Absolute Nucleated RBC 0.000 Nucleated RBC % (auto) 0.0 Sodium 141 Potassium 3.8 Chloride 106 Carbon Dioxide 28 Anion Gap 11 L BUN 17 H Creatinine 0.87 Estim Creat Clear Calc 57.2 Estimated GFR > 60 POC Glucose 166 H 169 H Random Glucose 183 H Estimat Average Glucose Hemoglobin A1c % Calcium 8.7 Stl C. cayetanensis PCR Stool Rotavirus A PCR Stl Adenov F 40/41 PCR Stool Astrovirus (PCR) Stool Campylobacter PCR Stool Cryptosporidium PCR Stl Sh Tox Pr E STEC PCR Stool E coli O157 PCR Stl Enterotoxigenic E PCR Stool EPEC (PCR) Stool EAEC (PCR) Stl E. histolytica PCR Stool Giardia Lamblia PCR Stl P. shigelloides PCR Stool Salmonella PCR Stool Sapovirus (PCR) Stl Shigella/EIEC PCR St Y.enterocolitica PCR Stool Vibrio (PCR) Stl Vibrio cholerae PCR Stl Norovirus GI/GII PCR 10/03/24 06:57 WBC RBC Hgb Hct MCV MCH MCHC RDW Plt Count MPV Absolute Nucleated RBC Nucleated RBC % (auto) Sodium Potassium Chloride Carbon Dioxide Anion Gap BUN Creatinine Estim Creat Clear Calc Estimated GFR POC Glucose 174 H Random Glucose Estimat Average Glucose Hemoglobin A1c % Calcium Stl C. cayetanensis PCR Stool Rotavirus A PCR Stl Adenov F 40/41 PCR Stool Astrovirus (PCR) Stool Campylobacter PCR Stool Cryptosporidium PCR Stl Sh Tox Pr E STEC PCR Stool E coli O157 PCR Stl Enterotoxigenic E PCR Stool EPEC (PCR) Stool EAEC (PCR) Stl E. histolytica PCR Stool Giardia Lamblia PCR Stl P. shigelloides PCR Stool Salmonella PCR Stool Sapovirus (PCR) Stl Shigella/EIEC PCR St Y.enterocolitica PCR Stool Vibrio (PCR) Stl Vibrio cholerae PCR Stl Norovirus GI/GII PCR ECG Interpretation: Initial EKG shows atrial flutter at a rate of 142/Min. Right bundle-branch block pattern. In the 2nd EKG, possible atrial fibrillation but could still be flutter. Ventricular rate 82/Min. EKG prior to that from July shows sinus bradycardia at 56/Min. Assessment and Plan (1) Atrial flutter with rapid ventricular response: Status: Acute Plan Echocardiogram with LVEF of 65%. Grade 3 diastolic dysfunction. Left atrium severely dilated. No obvious valvular findings. Borderline high sensitivity troponin elevation at 26 and 34. Overall, atrial flutter with rapid response with prior history of ablation. Current outpatient medications metoprolol ER 25 mg daily. Can try to switch to oral diltiazem and see if rates get controlled. She might just which back to normal sinus rhythm. She may possibly need another ablation in the future. We will follow up with you. Procedures Date of Service Date of Service: 10/03/24
[2024-10-03 11:01] VITALS: BP 124/81; PULSE 124; RESP 17; TEMP 36.2; O2SAT 98
[2024-10-03 11:06] LABS: Glucose, Whole Blood 180 mg/dL (60-115)
[2024-10-03] MEDS: dilTIAZem HCL CD 120 MG CAP.ER.DEG PO (11:53)
--- NOTE | 2024-10-03 13:50 | P.PNIM_ITS ---
Subjective Subjective Date of Service: 10/03/24 Interval History: Being followed for AFib with RVR Diarrhea resolved Denies chest pain, no palpitations, no lightheadedness, no dizziness Tele monitor showed atrial flutter with RVR heart rate 110-160 Review of Systems All other system reviewed and are negative Physical Exam 2 Vital Signs: Vital Signs: Last Vital Signs Temp 97.1 F 10/03/24 11:01 Pulse 124 H 10/03/24 11:01 Resp 17 10/03/24 11:01 BP 124/81 10/03/24 11:01 Pulse Ox 98 10/03/24 11:01 O2 Del Method Room Air 10/03/24 11:01 BMI result Body Mass Index 32.8 Const: Other: General resting comfortably in no acute distress. Neck no JVD. CVS irregular rate rhythm, tachycardic Respiratory lungs clear to auscultation, no respiratory distress, no wheeze, no rhonchi. Gastrointestinal abdomen soft, non tender, bowel sounds audible. Extremities no edema. Neuro non focal Skin no rash Appropriate affect Objective Data Active Medications Acetaminophen (Acetaminophen 325 Mg Tablet) 650 mg PO Q6H PRN PRN Reason: Pain, Mild 1-3,fever,headache Albuterol Sulfate (Albuterol Sulfate 90 Mcg 8 Gm Inhaler) 2 puff INHALE Q6H PRN PRN Reason: shortness of breath or wheezing Apixaban (Apixaban 5 Mg Tablet) 5 mg PO BID [facility] Last Admin: 10/03/24 07:57 Dose: 5 mg Documented By: CARLEE Atorvastatin Calcium (Atorvastatin Calcium 80 Mg Tablet) 80 mg PO DAILY [facility] Last Admin: 10/03/24 07:57 Dose: 80 mg Documented By: CARLEE Calcium Carbonate (Calcium Carbonate 750 Mg Tab.Chew) 750 mg PO Q4H PRN PRN Reason: Heartburn Dextrose (Dextrose 50 % 25 Gm/50 Ml Syringe) 25 gm IVPUSH Q15M PRN; Protocol PRN Reason: per Hypoglycemia Standing Ord. Diltiazem HCl (Diltiazem Hcl Cd 120 Mg Cap.Er.Deg) 120 mg PO DAILY [facility]; Protocol Last Admin: 10/03/24 11:53 Dose: 120 mg Documented By: CARLEE Glipizide (Glipizide Xl 5 Mg Tab.Er.24) 5 mg PO DAILY [facility] Last Admin: 10/03/24 07:57 Dose: 5 mg Documented By: CARLEE Glucose (Glucose Gel 15 Gm Gel..Gram.) 15 gm PO Q15M PRN; Protocol PRN Reason: per Hypoglycemia Standing Ord. Insulin Glargine (Insulin Glargine,Hum.Rec.Anlog 100 Unit/Ml 10 Ml Vial) 5 unit SUBCUT DAILY [facility] Last Admin: 10/03/24 07:56 Dose: 5 unit Documented By: CARLEE Insulin Human Lispro (Insulin Lispro 100 Unit/Ml 3 Ml Vial) 0 unit SUBCUT QIDACHS [facility]; Protocol Last Admin: 10/03/24 11:45 Dose: 2 unit Documented By: CARLEE Levothyroxine Sodium (Levothyroxine Sodium 112 Mcg Tablet) 112 mcg PO DAILY@0600 [facility] Last Admin: 10/03/24 05:55 Dose: 112 mcg Documented By: FRANKLIN Levothyroxine Sodium (Levothyroxine Sodium 25 Mcg Tablet) 25 mcg PO DAILY@0600 [facility] Last Admin: 10/03/24 05:55 Dose: 25 mcg Documented By: FRANKLIN Magnesium Hydroxide (Milk Of Magnesia 30 Ml Oral.Susp) 30 ml PO DAILY PRN PRN Reason: Constipation Melatonin (Melatonin 3 Mg Tablet) 6 mg PO BEDTIME PRN PRN Reason: Insomnia Metoprolol Succinate (Metoprolol Succinate Er 50 Mg Tab.Er.24h) 50 mg PO DAILY [facility]; Protocol Last Admin: 10/03/24 07:57 Dose: 50 mg Documented By: CARLEE Sodium Chloride (0.9 % Sodium Chloride Flush 3 Ml Syringe) [facility] Last Admin: 10/03/24 07:58 Dose: 3 ml Documented By: CARLEE Vitamin D (Cholecalciferol (Vitamin D3) 25 Mcg Tablet) 50 mcg PO DAILY [facility] Last Admin: 10/03/24 07:56 Dose: 50 mcg Documented By: CARLEE Labs 10/03/24 05:37 10/03/24 05:37 Labs: Laboratory Results - last 24 hr 10/02/24 10/02/24 10/03/24 15:23 20:22 05:37 MCV 62.3 L MCH 18.3 L MCHC 29.4 L RDW 18.6 H Plt Count 319 MPV Not Reportable Absolute Nucleated RBC 0.000 Nucleated RBC % (auto) 0.0 Anion Gap 11 L Estim Creat Clear Calc 57.2 Estimated GFR > 60 POC Glucose 166 H 169 H Random Glucose 183 H Calcium 8.7 10/03/24 10/03/24 06:57 11:02 MCV MCH MCHC RDW Plt Count MPV Absolute Nucleated RBC Nucleated RBC % (auto) Anion Gap Estim Creat Clear Calc Estimated GFR POC Glucose 174 H 180 H Random Glucose Calcium Microbiology Microbiology Results: Microbiology 10/01/24 08:53 Blood Culture - Preliminary Blood - Venous No growth after 48 hours. 10/01/24 08:53 Blood Culture - Preliminary Blood - Venous No growth after 48 hours. Assessment and Plan (1) Acidosis, lactic: Status: Acute (2) Acute hypokalemia: Status: Acute (3) Atrial fibrillation with rapid ventricular response: Status: Acute Plan 69-year-old female with a PMH significant for?paroxysmal AFib/flutter s/p ablation 05/06/21 on Eliquis, asthma, HTN, HLD, insulin-dependent type 2 diabetes, peripheral neuropathy, hx of DVT, and thyroid carcinoma s/p thyroidectomy with resultant hypothyroidism who presents to the ED with?dizziness since yesterday afternoon. Pt will be admitted to the hospital for treatment and further evaluation of symptomatic AFib with RVR. Symptomatic AFib with RVR Dizziness resolved s/p IV Cardizem drip ,dose of metoprolol xl increased to 50 mg daily TSH 4.39 Tele monitor this a.m. showed atrial flutter with ventricular rate up to 160 patient asymptomatic/stable electrolytes and renal function Cardiology consult obtained Dr. Martinez recommend to add Cardizem CD 120 mg daily Follow at [facility] Cardiology Continue tele monitor Acute lactic acidosis Initial lactic acid 2.43.2.0, Secondary to metformin use, not sepsis Acute hypokalemia Likely secondary to GI losses from acute on chronic diarrhea Repleted, and normalized Elevated troponins Initial troponin 26.7 with repeat flat at 34.7 likely due to atrial fibrillation with rvr,, patient asymptomatic EKG without acute ischemic changes no further workup warranted Acute on chronic diarrhea, abdominal pain History of intermittent diarrhea as per patient likely due to metformin C diff and GI panel negative Similar presentation when hospitalized on 07/09/[address] of abdomen pelvis, GI panel negative Recommend to discontinue metformin and follow-up with endocrinology Insulin-dependent type 2 diabetes Hold metformin/hemoglobin A1c 9 on sliding scale insulin, on Tresiba 7 units daily, Trulicity 4.5 mg subQ Mondays, pre meal insulin and being followed by endocrinology, recommend outpatient follow-up with endo and adjust home medication Continue Diabetic diet Hypothyroidism Continue levothyroxine TSH mildly elevated continue current treatment follow TSH in 6 weeks Asthma Not in acute exacerbation, Continue home inhalers Full Code DVT Prophylaxis: Amaya Pt will require continued inpatient hospitalization for management of AFib with RVR requiring medication adjustment and expert consultation. Quality Stroke Does the patient have a stroke diagnosis?: No VTE Prior VTE?: No VTE Risk Level:: Medical - moderate - high VTE Device Contraindication: Treatment Not Indicated VTE Drug Contraindication: N/A - Med Ordered
[2024-10-03 15:02] VITALS: BP 130/71; PULSE 126; RESP 18; TEMP 36.1; O2SAT 97
[2024-10-03 16:01] LABS: Glucose, Whole Blood 167 mg/dL (60-115)
[2024-10-03] MEDS: dilTIAZem HCL 30 MG TABLET PO ×2 (17:27→20:10)
[2024-10-03 19:44] VITALS: BP 104/55; PULSE 86; RESP 16; TEMP 36.5; O2SAT 96
[2024-10-03 21:17] LABS: Glucose, Whole Blood 141 mg/dL (60-115)
[2024-10-04] VITALS: BP 109/59; PULSE 61; RESP 16; TEMP 36.4; O2SAT 96
[2024-10-04 04:00] VITALS: BP 114/61; PULSE 60; RESP 16; TEMP 36.6; O2SAT 97
[2024-10-04] MEDS: Levothyroxine Sodium 25 MCG TABLET PO (05:55)
[2024-10-04] MEDS: Levothyroxine Sodium 112 MCG TABLET PO (05:55)
[2024-10-04 07:01] LABS: Glucose, Whole Blood 167 mg/dL (60-115)
[2024-10-04 07:02] VITALS: BP 109/58; PULSE 69; RESP 18; TEMP 36; O2SAT 97
[2024-10-04 07:09] LABS: Anion Gap 12 (12-20); Blood Urea Nitrogen 14 mg/dL (9-16); Calcium 8.9 mg/dL (8.4-10.2); Carbon Dioxide 28 mmol/L (22-29); Chloride 106 mmol/L (96-108); Creatinine Clr Calc Pharmacy 62.2; Estimated Glomerular Filt Rate > 60; Glucose Random 156 mg/dL (60-115); Potassium 4.2 mmol/L (3.3-5.1); Sodium 142 mmol/L (135-145)
[2024-10-04 07:32] LABS: Hematocrit 37.5 % (37.0-47.0); Mean Corpuscular HGB Conc 29.3 g/dl (31.0-35.0); Mean Corpuscular Hemoglobin 18.1 pg (27.0-33.0); Platelet Count 293 X10*3/uL (160-400); Red Blood Count 6.09 X10*6/uL (4.20-5.50); Red Cell Distribution Width 18.9 % (11.0-16.0); White Blood Count 7.8 X10*3/uL (4.8-10.8)
[2024-10-04 07:33] LABS: Mean Corpuscular Volume 61.6 fL (80.0-98.0)
[2024-10-04] MEDS: Insulin Lispro 100 UNIT/ML 3 ML VIAL SUBCUT ×2 (08:59→11:36)
[2024-10-04] MEDS: Metoprolol Succinate ER 50 MG TAB.ER.24H PO (09:00)
[2024-10-04] MEDS: Apixaban 5 MG TABLET PO (09:00)
[2024-10-04] MEDS: dilTIAZem HCL 30 MG TABLET PO (09:00)
[2024-10-04] MEDS: Cholecalciferol (Vitamin D3) 25 MCG TABLET 50 MCG PO (09:00)
[2024-10-04] MEDS: Atorvastatin Calcium 80 MG TABLET PO (09:01)
[2024-10-04] MEDS: Insulin Glargine,Hum.rec.anlog 100 UNIT/ML 10 ML VIAL SUBCUT (09:01)
[2024-10-04] MEDS: 0.9 % Sodium Chloride Flush 3 ML SYRINGE IVFLUSH (09:02)
[2024-10-04] MEDS: dilTIAZem HCL CD 120 MG CAP.ER.DEG PO (09:19)
--- NOTE | 2024-10-04 09:30 | PM.PNCARD ---
Subjective Subjective Date of Service: 10/04/24 Interval history: She states she feels okay. No new cardiac symptoms. Review of Systems Review of Systems Yes all other systems are reviewed and are negative Constitutional: Reports as per HPI and Reports no additional constitutional complaints Eyes: Reports as per HPI and Denies no additional eye complaints Denies system reviewed and no additional complaints, except as documented and Reports as per HPI Cardiovascular: Reports as per HPI, Reports no additional cardiovascular complaints, Denies acrocyanosis, Denies cool extremities, Denies chest pain, Denies leg edema, Denies lightheadedness, Denies palpitations and Denies dyspnea Respiratory: Reports as per HPI, Denies no additional respiratory complaints and Denies dyspnea Gastrointestinal: Reports as per HPI and Denies no additional gastrointestinal complaints Genitourinary: Reports as per HPI Musculoskeletal: Reports no additional musculoskeletal complaints and Reports as per HPI Skin/Breast: Reports system reviewed and no additional complaints, except as docu Reports system reviewed and no additional complaints, except as documented and Reports as per HPI Psychiatric: Reports no additional psychiatric complaints and Reports as per HPI Endocrine: Reports no additional endocrine complaints, Reports as per HPI and Denies palpitations Hematologic/Lymphatic: Reports no additional hematologic/lymphatic complaints and Reports as per HPI Allergic/Immunologic: Reports no additional allergic/immunologic complaints and Reports as per HPI Physical Exam Vital Signs: Last Vital Signs Temp 96.8 F 10/04/24 07:02 Pulse 69 10/04/24 07:02 Resp 18 10/04/24 07:02 BP 109/58 L 10/04/24 07:02 Pulse Ox 97 10/04/24 07:02 O2 Del Method Room Air 10/04/24 07:02 BMI result Body Mass Index 32.8 Const General: comfortable and no acute distress Orientation/consciousness: patient oriented x3 HEENT Other: Unremarkable Head: Yes normal to inspection Neck Neck: Yes normal visual inspection Chest Chest palpation & inspection: normal inspection of the chest Resp Auscultation: clear to auscultation bilaterally Cardio Palpation: normal PMI Heart sounds: S1 normal heart sound present, S2 normal heart sound present, no gallops, no murmurs and no rubs GI Palpation (GI): Soft to palpation Back/Spine/Pelvis Other: unremarkable Skin General skin exam: no rashes or lesions noted Neuro General: patient oriented x3 Extrem General: Yes normal to inspection Psych Mental Status: mental status grossly normal Objective Labs and Meds 10/04/24 06:20 10/04/24 06:20 Lab results: Laboratory Results - last 24 hr 10/03/24 10/03/24 10/03/24 11:02 15:58 21:13 WBC RBC Hgb Hct MCV MCH MCHC RDW Plt Count MPV Absolute Nucleated RBC Nucleated RBC % (auto) Sodium Potassium Chloride Carbon Dioxide Anion Gap BUN Creatinine Estim Creat Clear Calc Estimated GFR POC Glucose 180 H 167 H 141 H Random Glucose Calcium 10/04/24 10/04/24 06:20 06:48 WBC 7.8 RBC 6.09 H Hgb 11.0 L Hct 37.5 MCV 61.6 L MCH 18.1 L MCHC 29.3 L RDW 18.9 H Plt Count 293 MPV Not Reportable Absolute Nucleated RBC 0.000 Nucleated RBC % (auto) 0.0 Sodium 142 Potassium 4.2 Chloride 106 Carbon Dioxide 28 Anion Gap 12 BUN 14 Creatinine 0.80 Estim Creat Clear Calc 62.2 Estimated GFR > 60 POC Glucose 167 H Random Glucose 156 H Calcium 8.9 Progress Note: A&P Assessment and plan (1) Atrial flutter with rapid ventricular response: Status: Acute Plan Echocardiogram with LVEF of 65%. Grade 3 diastolic dysfunction. Left atrium severely dilated. No obvious valvular findings. Borderline high sensitivity troponin elevation at 26 and 34. Overall, atrial flutter with rapid response with prior history of ablation. Current outpatient medications metoprolol ER 25 mg daily. Added Diltiazem CD 120 mg daily. On telemetry, ventricular rate is much better. However, she is still in atrial fibrillation. As she has got no symptoms and otherwise controlled, keep on the current regimen. Anticoagulation. Discharge planning. Follow up with her own EP physician in [facility]. She states she has an appointment coming up in a couple of months. May need another ablation. Time Spent With Patient Time: Total time managing care of this patient today ____ minutes. Progress Note: Quality Stroke Does the patient have a stroke diagnosis?: No Procedures Date of Service Date of Service: 10/04/24
--- NOTE | 2024-10-04 10:45 | P.DS_ITS ---
DS: Providers Provider Date of Service: 10/04/24 Date of admission: 10/01/24 12:18 Date of discharge: 10/04/24 Primary care physician: Jo Montiel MD Consults: 10/03/24 07:33 Consult to Cardiology Routine Consulting Provider: [facility] Reason for consultation: atfib with rvr Has provider been notified: No DS: Diagnosis Discharge Diagnosis (1) Atrial flutter with rapid ventricular response: Status: Acute DS: Summary Hospital Course Hospital Course: admission hpi Chief Complaint: Dizziness and diarrhea Pt is a 69-year-old female with a PMH significant for?paroxysmal AFib/flutter s/p ablation 05/06/21 on Eliquis, asthma, HTN, HLD, insulin-dependent type 2 diabetes, peripheral neuropathy, hx of DVT, and thyroid carcinoma s/p thyroidectomy with resultant hypothyroidism who presents to the ED with?dizziness since yesterday afternoon. Pt reports began experiencing dizziness with standing yesterday around 14:00. No falls or loss of consc iousness. This morning upon awakening pt reports and dizziness while lying in bed and called EMS to bring her to the ED. Also reports experiencing multiple episodes of diarrhea since yesterday, the pt reports has a long hx of chronic diarrhea stemming from metformin and diet. Denies chest pain/pressure, palpitations. No fever, chills. Denies shortness or breath or difficulty breathing. In the ED pt was tachycardic to 153 and tachypneic up to 22. Labs were significant for leukocytosis 12.8, potassium 3.0, lactic acid 2.4, and initial troponin 26.7. Stable H&H. Renal function WNL. Hepatic function WNL. CXR showed cardiomegaly without acute cardiopulmonary process. EKG demonstrated sinus tachycardia of 142 with QTc 556, with repeat EKG showing AFib of 82 with RBBB and QTc of 497. Pt was treated with IVF, diltiazem 15 mg IV, potassium chloride 40 mEq p.o., and started on diltiazem drip. Pt will be admitted to the hospital for treatment and further evaluation of symptomatic AFib with RVR. hospital coruse: 69-year-old female with a past medical history significant for paroxysmal atrial fibrillation/flutter status post ablation on 05/06/21, currently on Eliquis, as well as asthma, hypertension, hyperlipidemia, insulin-dependent type 2 diabetes, peripheral neuropathy, history of DVT, and thyroid carcinoma status post thyroidectomy with resultant hypothyroidism, presented to the emergency department with dizziness and was found to be in atrial fibrillation with rapid ventricular response, with heart rate peaking at 153 bpm. She was given IV Cardizem push followed by a continuous Cardizem drip and admitted to the cardiac unit for continuous cardiac monitoring. Her home metoprolol dose was increased to 50 mg daily. Cardizem IV was transitioned to oral Cardizem 30 mg every 6 hours and eventually to long-acting Cardizem CD 120 mg daily. At this point, her heart rate is well controlled in the 60s, and her symptoms have resolved. Cardiology evaluated her and an echocardiogram was performed, showing a left ventricular ejection fraction of 65%, grade 3 diastolic dysfunction, and a severely dilated left atrium. No significant valvular abnormalities were noted. Troponin I levels were insignificant at 26 and 34. TSH was 4.39. Her symptoms have resolved. Acute lactic acidosis Initial lactic acid 2.43.2.0, Secondary to metformin use, not sepsis Acute hypokalemia Likely secondary to GI losses from acute on chronic diarrhea Repleted, and normalized Elevated troponins Initial troponin 26.7 with repeat flat at 34.7 likely due to atrial fibrillation with rvr,, patient asymptomatic EKG without acute ischemic changes no further workup warranted Acute on chronic diarrhea, abdominal pain History of intermittent diarrhea as per patient likely due to metformin C diff and GI panel negative Similar presentation when hospitalized on 07/09/[address] of abdomen pelvis, GI panel negative Recommend to discontinue metformin and follow-up with endocrinology Insulin-dependent type 2 diabetes Hold metformin/hemoglobin A1c 9 on sliding scale insulin, on Tresiba 7 units daily, Trulicity 4.5 mg subQ Mondays, pre meal insulin and being followed by endocrinology, recommend outpatient follow-up with endo and adjust home medication Continue Diabetic diet Hypothyroidism Continue levothyroxine TSH mildly elevated continue current treatment follow TSH in 6 weeks Asthma Not in acute exacerbation, Continue home inhalers Time Attestation Discharge Coordination Time (in mins): 40 Quality: Safe Use of Opioids Does Pt have an Active Cancer Diagnosis on the Problem List?: No Quality: Stroke Does the patient have a stroke diagnosis?: No Physical Exam Vital Signs: Vital Signs: Last Vital Signs Temp 96.8 F 10/04/24 07:02 Pulse 69 10/04/24 07:02 Resp 18 10/04/24 07:02 BP 109/58 L 10/04/24 07:02 Pulse Ox 97 10/04/24 07:02 O2 Del Method Room Air 10/04/24 07:02 BMI result Body Mass Index 32.8 Const: Other: General: AO X 3, no acute distress Resp: CTA bilateral CVS: S1,S2,RRR GI: +BS, NT, no distention Skin: No rash Neuro: motor grossly intact Psych: appropriate affect DS: Data Data Completed and Pending Labs on day of discharge: Laboratory Results - last 24 hr 10/03/24 10/03/24 10/03/24 11:02 15:58 21:13 WBC RBC Hgb Hct MCV MCH MCHC RDW Plt Count MPV Absolute Nucleated RBC Nucleated RBC % (auto) Sodium Potassium Chloride Carbon Dioxide Anion Gap BUN Creatinine Estim Creat Clear Calc Estimated GFR POC Glucose 180 H 167 H 141 H Random Glucose Calcium 10/04/24 10/04/24 06:20 06:48 WBC 7.8 RBC 6.09 H Hgb 11.0 L Hct 37.5 MCV 61.6 L MCH 18.1 L MCHC 29.3 L RDW 18.9 H Plt Count 293 MPV Not Reportable Absolute Nucleated RBC 0.000 Nucleated RBC % (auto) 0.0 Sodium 142 Potassium 4.2 Chloride 106 Carbon Dioxide 28 Anion Gap 12 BUN 14 Creatinine 0.80 Estim Creat Clear Calc 62.2 Estimated GFR > 60 POC Glucose 167 H Random Glucose 156 H Calcium 8.9 Preliminary micro results at discharge 10/01/24 08:53 Blood Culture - Preliminary Blood - Venous No growth after 48 hours. 10/01/24 08:53 Blood Culture - Preliminary Blood - Venous No growth after 48 hours. Discharge Plan Discharge Anticipated Discharge Date/Time: 10/04/24 10:55 Patient Disposition: Home, Self-Care Discharge Diagnosis: AFlutter with RVR, diarrhea Referrals: Jo Luna MD [Primary Care Provider] - 1 Week Discharge Medications: New metoprolol succinate 50 mg Tablet Extended Release 24 Hr 50 mg PO DAILY Qty: 90 0RF Protocol: Hold for SBP/HR < HOLD for SBP < : 90 HOLD for HR < : 60 diltiazem HCl [Cardizem CD] 120 mg Capsule,Extended Release 24hr 120 mg PO DAILY Qty: 90 0RF Protocol: Hold for SBP/HR < HOLD for SBP < : 90 HOLD for HR < : 60 Continued (DME) lancets [OneTouch Delica Plus Lancet] 33 gauge misc See Rx Instructions .ROUTE .COMPLEX Qty: 100 0RF Dose Instruction: USE TO TEST BLOOD SUGAR FOUR TIMES DAILY Rx Instructions: USE TO TEST BLOOD SUGAR FOUR TIMES DAILY (DME) blood pressure test kit-large Kit See Rx Instructions .Route Qty: 1 0RF Rx Instructions: As directed rosuvastatin 40 mg tablet 40 mg PO DAILY 90 Days Qty: 90 2RF (DME) blood-glucose meter [OneTouch Ultra2 Meter] [facility] [place] See Rx Instructions .Route Qty: 1 0RF Rx Instructions: As directed test 4 times a day (DME) air conditioner See Rx Instructions .Route .MEDSUPPLY Qty: 1 0RF Rx Instructions: As directed (DME) incontinence pad, liner, disp Pad See Rx Instructions .Route Qty: 120 11RF Rx Instructions: Use 1 pad every 6 hours as needed (DME) wipes flushable See Rx Instructions .Route .MEDSUPPLY Qty: 240 11RF Rx Instructions: As directed (DME) Dexcom G7 Lead Network [employer] [facility] [place] See Rx Instructions .Route Qty: 1 0RF Rx Instructions: As directed (DME) lancets [FreeStyle Lancets] [facility] See [facility] Instructions .Route Qty: 100 4RF Rx Instructions: As directed test 4X a day cholecalciferol (vitamin D3) [Vitamin D3] 50 mcg (2,000 unit) capsule 50 mcg PO DAILY Qty: 28 3RF (DME) OneTouch Ultra Test Strip See Rx Instructions .ROUTE .COMPLEX Qty: 100 4RF Dose Instruction: USE TO TEST BLOOD SUGAR FOUR TIMES PER DAY Rx Instructions: USE TO TEST BLOOD SUGAR FOUR TIMES PER DAY (DME) nebulizers Misc See Rx Instructions .Route Qty: 1 0RF Rx Instructions: As directed albuterol sulfate [Ventolin HFA] 90 mcg/actuation HFA aerosol inhaler 2 puff inhalation Q6H PRN (Reason: shortness of breath or wheezing) 30 Days Qty: 8 1RF (DME) Dexcom G7 Sensor Device See Rx Instructions .Route Qty: 3 11RF Rx Instructions: As directed change every 10 days (DME) Grab bar [facility] See Rx Instructions .Route Qty: 1 0RF Rx Instructions: As directed insulin lispro [Humalog KwikPen Insulin] 100 unit/mL insulin pen 5 unit subcut TID Rx Instructions: 5 units before breakfast 7 units before lunch and dinner subcutaneously 3 times a day; Eliquis 5 mg tablet 5 mg PO BID insulin degludec [Tresiba FlexTouch U-100] 100 unit/mL (3 mL) insulin pen 7 unit subcut DAILY Trulicity 4.5 mg/0.5 mL pen injector 4.5 mg SUBCUT MO (DME) balance See Rx Instructions .Route .MEDSUPPLY Qty: 1 0RF Rx Instructions: As directed levothyroxine 137 mcg tablet 137 mcg PO DAILY@0600 Qty: 30 7RF Discontinued lisinopril 10 mg tablet 5 mg PO DAILY metformin 500 mg tablet extended release 24 hr 1,000 mg PO DAILY metoprolol succinate 25 mg Tablet Extended Release 24 Hr 25 mg PO DAILY Qty: 90 0RF Protocol: Hold for SBP/HR < HOLD for SBP < : 90 HOLD for HR < : 60 Discharge Orders: Discharge Order (Routine); Ordered 10/04/24 Ordered By: Alessandro Clements Diet: Diabetic diet Activity on Discharge: As tolerated Stand Alone Forms: Patient Portal Discharge page Print Language: Bengali Care Plan Goals: recovery from aflutter with rvr and dizziness Health Concerns: atrial flutter with rapid heart beat diarrhea due to metformin Plan of Treatment: Toprol dose has been increased to 50 mg from 25 mg Cardizem 120 mg daily is started stop taking Lisinopril Stop taking metformin and follow up with endocrinology follow up with your doctor in a week Assessment: see above Discharge Date/Time: 10/04/24 13:06
[2024-10-04 10:55] LABS: Glucose, Whole Blood 183 mg/dL (60-115)
[2024-10-04 11:16] VITALS: BP 131/73; PULSE 72; RESP 18; TEMP 36.3; O2SAT 98
--- NOTE | 2024-10-04 13:16 | MHC.CM.PN ---
Pt is medically cleared for discharge home with resumption of [employer] [facility], pts family to transport her home today.
== END 2024-10-04 13:06 | disposition home or self-care (01) | DRG 309 ==
LOC: HO.ED 11:19 → HO.EDOVER 12:19 → HO.IMC 19:06
PROVIDERS: Hospitalist; Admitting Provider Student in an Organized Health Care Education/Training Program; Emergency Provider Emergency Medicine; PCP Internal Medicine; Visit Provider Internal Medicine
DX: I48.0 Paroxysmal atrial fibrillation (principal); E87.21 Acute metabolic acidosis; E11.42 Type 2 diabetes mellitus with diabetic polyneuropathy; I10 Essential (primary) hypertension; E89.0 Postprocedural hypothyroidism; K52.9 Noninfective gastroenteritis and colitis, unspecified; E78.5 Hyperlipidemia, unspecified; J45.909 Unspecified asthma, uncomplicated; Z79.4 Long term (current) use of insulin; Z79.01 Long term (current) use of anticoagulants; Z79.85 Long-term (current) use of injectable non-insulin antidiabetic drugs; Z79.890 Hormone replacement therapy; Z79.899 Other long term (current) drug therapy
CPT/HCPCS: 36415; 71045; 80048; 80053; 82947; 83036; 83605; 84443; 84484; 85025; 85027; 85610; 85652; 87040; 87493; 87507; 93005; 99285

== ENCOUNTER → 2024-10-01 08:23 | Outpatient (BNV) | payer OTHER, SELFPAY | PROVIDERS: Admitting Provider Student in an Organized Health Care Education/Training Program; Emergency Provider Emergency Medicine; PCP Internal Medicine; Visit Provider Internal Medicine | DX: I48.92 Unspecified atrial flutter (principal); I45.10 Unspecified right bundle-branch block; I48.91 Unspecified atrial fibrillation; I45.2 Bifascicular block | CPT/HCPCS: 93010 ==

== ENCOUNTER → 2024-10-01 08:55 | Outpatient (BNV) | payer OTHER, SELFPAY | PROVIDERS: Emergency Provider Emergency Medicine; Visit Provider Radiology Diagnostic Radiology | DX: R07.9 Chest pain, unspecified (principal) | CPT/HCPCS: 71045 ==

== ENCOUNTER → 2024-10-01 12:18 | Outpatient (BNV) | payer OTHER, SELFPAY | PROVIDERS: Admitting Provider Student in an Organized Health Care Education/Training Program; Emergency Provider Emergency Medicine; PCP Internal Medicine; Visit Provider Internal Medicine | DX: I48.92 Unspecified atrial flutter (principal) | CPT/HCPCS: 99223 ==

== ENCOUNTER → 2024-10-01 12:18 | Outpatient (BNV) | payer OTHER, SELFPAY | PROVIDERS: Admitting Provider Student in an Organized Health Care Education/Training Program; Emergency Provider Emergency Medicine; PCP Internal Medicine; Visit Provider Student in an Organized Health Care Education/Training Program | DX: I48.92 Unspecified atrial flutter (principal) | CPT/HCPCS: 99233; 99239 ==

== ENCOUNTER 2024-10-11 20:12 | Emergency (ER) | payer OTHER, SELFPAY ==
--- NOTE | ~2024-10-11 | CT_ITS ---
CLINICAL HISTORY: LLQ pain CT abdomen and pelvis with contrast Comparison: CT/AK/SR - CT ABDOMEN PELVIS W IV CON - 07/09/24 14:22 EST Findings: There is stable partially visualized mild cardiomegaly. There is a stable small pericardial effusion. There is mild bibasilar atelectasis. The liver, gallbladder, pancreas, and adrenal glands are unremarkable. There are a couple left renal cysts. Kidneys are otherwise unremarkable. There is a new region of nonenhancement in the superolateral portion of the spleen measuring up to 3 cm most consistent with a splenic infarct. The remainder of the spleen appears normal. The main splenic artery and branches in the splenic hilum are widely patent. The appendix is normal. There is a moderate amount of stool in the colon. The gastrointestinal tract is otherwise unremarkable. There is minimal free fluid in the cul-de-sac. There is no free air. There are no enlarged lymph nodes. Patient is status post hysterectomy. The aorta is normal in diameter and patent without stenosis. Aortic branch vessels are patent without stenosis. There are bilateral L5 pars defects with grade 1 anterolisthesis of L5 on S1. There is severe L5-S1 degenerative disc disease. There is multilevel lumbar facet osteoarthritis. There is no acute fracture or suspicious lytic or sclerotic lesion. IMPRESSION: 1. New 3 cm region of nonenhancement in the spleen most consistent with a splenic infarct. A splenic contusion could look similar if there is a history of trauma. There is no perisplenic fluid/blood. 2. Minimal nonspecific free fluid in the cul-de-sac. 3. Stable mild cardiomegaly and small pericardial effusion. This document has been electronically signed by: Jose Traylor MD on 10/12/2024 00:15:37
--- NOTE | 2024-10-11 20:24 | ED.GENADULT ---
HPI - General Adult General Chief complaint: Abdominal Pain Stated complaint: abd pain Time Seen by Provider: 10/11/24 22:31 Source: patient, RN notes reviewed and old records reviewed Mode of arrival: ambulatory Limitations: no limitations History of Present Illness ED Provider: Radha HPI narrative: 69-year-old female with past medical history significant for atrial fibrillation status post ablation on Eliquis, asthma, HTN, HLD, type 2 diabetes, neuropathy thyroid carcinoma, status post thyroidectomy presents for evaluation of abdominal pain. Patient was recently admitted here due to tachycardia and discharged last 10/04/2024 She was no longer having any palpitations or dizziness that she was having on her last presentation but is complaining of abdominal pain that started 2 days ago She denies any nausea vomiting, diarrhea, constipation. Denies any blood in the urine Denies any fevers or chills. She reports she has had previous abdominal surgery ?to not have babies. ? Related Data Home Medications ?Medication ?Instructions ?Recorded ?Confirmed apixaban 5 mg tablet (Eliquis) 5 mg PO BID 10/01/24 10/06/24 dulaglutide 4.5 mg/0.5 mL 4.5 mg subcut MO 10/01/24 10/06/24 subcutaneous pen injector (Trulicity) insulin degludec 100 unit/mL (3 7 unit subcut DAILY 10/01/24 10/06/24 mL) subcutaneous pen (Tresiba FlexTouch U-100 insulin) insulin lispro 100 unit/mL 5 unit subcut TID 10/01/24 10/06/24 subcutaneous pen (Humalog KwikPen (U-100) Insulin) Previous Rx's ?Medication ?Instructions ?Recorded lancets 33 gauge (OneTouch Delica #100 ea 01/22/23 Plus Lancet) blood pressure test kit-large #1 ea 04/23/23 rosuvastatin 40 mg tablet 40 mg PO DAILY 90 days #90 tabs 11/07/23 blood-glucose meter (OneTouch #1 ea 11/19/23 Ultra2 Meter) air conditioner #1 ea 01/13/24 incontinence pad, liner, disp #120 ea 01/13/24 wipes flushable #240 ea 01/13/24 blood-glucose,malted milk masher,cont #1 ea 02/19/24 (Dexcom G7 Therapeutic Riding Instructor) lancets 28 gauge (FreeStyle #100 ea 03/12/24 Lancets) balance #1 ea 04/14/24 cholecalciferol (vitamin D3) 50 50 mcg PO DAILY #28 caps 06/23/24 mcg (2,000 unit) capsule (Vitamin D3) blood sugar diagnostic (OneTouch #100 ea 07/01/24 Ultra Test strips) nebulizers #1 ea 07/02/24 Ventolin HFA 90 mcg/actuation 2 puff inhalation Q6H PRN 08/15/24 aerosol inhaler (albuterol sulfate) shortness of breath or wheezing 30 days #8 grams Dexcom G7 Sensor (blood-glucose #3 ea 08/27/24 sensor) levothyroxine 137 mcg tablet 137 mcg PO DAILY@0600 #30 tabs 09/01/24 Grab bar #1 ea 09/02/24 diltiazem HCl 120 mg 120 mg PO DAILY #90 caps 10/04/24 capsule,extended release 24 hr (Cardizem CD) metoprolol succinate 50 mg 50 mg PO DAILY #90 tabs 10/04/24 tablet,extended release 24 hr tramadol 50 mg tablet 50 mg PO Q6H PRN severe pain 10/12/24 (scale score 7-10) #12 tabs Allergies Allergy/AdvReac Type Severity Reaction Status Date / Time empagliflozin Allergy Intermediate ITCHY/RASH Verified 10/11/24 20:28 [From JARDIANCE] JARDIANCE Allergy Intermediate pruritus Uncoded 10/11/24 20:28 Review of Systems Constitutional: Constitutional: Denies body ache(s), Denies chills, Denies fever(s) and Denies headache(s) Eyes: Eyes: Denies blurry vision ENT: Denies vertigo, Denies dizziness and Denies headache(s) Cardiovascular: Cardiovascular: Denies chest pain and Denies dyspnea Respiratory: Respiratory: Denies cough and Denies dyspnea Gastrointestinal: Gastrointestinal: Reports abdominal pain, Denies nausea and Denies vomiting Musculoskeletal: Musculoskeletal: Denies back pain Integumentary/Breasts: Skin/Breast: Denies rash Neurologic: Denies vertigo, Denies dizziness and Denies headache(s) Psychiatric: Psychiatric: Denies anxiety PMFSH Past Medical History Medical History Hypothyroidism Asthma Pericardial effusion Pneumonitis Pleural effusion Hypoglycemia unawareness associated with type 2 diabetes mellitus Post-surgical hypothyroidism 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 Mother Arthritis Social History Social History Household Members: Spouse and Children Housing: Apartment Do you presently have visiting nurse or other home services: Yes (Daughter is [employer]) Alcohol intake: never Patient Tobacco Use Status: Never used Tobacco e-Cigarette/Vaping Use: Never Used Second Hand Smoke Exposure: No Advance Directives: No Advance Directives Information Provided: No Do you have a plan to hurt others: No Plan service: No Current occupational status: disabled Cognitive needs: No Hearing needs: No Vision needs: No Physical Exam ED Vital Signs: Vital Signs - 24 hr 10/11/24 20:25 10/11/24 22:34 Temperature 98.1 F 98.4 F Pulse Rate 54 57 Respiratory Rate 16 18 Blood Pressure 169/52 H 147/66 H Pulse Oximetry 98 98 Oxygen Delivery Method Room Air Room Air BMI result Body Mass Index 33.1 Const General: healthy appearing, comfortable, no acute distress, alert and awake Nutritional Appearance: well nourished Orientation/consciousness: patient oriented x3 HENMT Head: Yes normocephalic and Yes atraumatic Eyes Eyelids: Yes eyelids normal Conjunctivae: conjunctivae normal Sclerae: sclerae normal Corneas: corneas normal Pupils: Equal, round and reactive pupils present EOM: EOMs intact bilaterally Neck Neck: Yes full ROM Resp Effort & Inspection: normal respiratory effort, able to speak in complete sentences and not labored GI Inspection: No distended Palpation (GI): Soft to palpation, not firm, Tenderness to palpation present (GI) in the LLQ, Guarding due to palpation present (GI) in the LLQ and not rigid Skin General skin exam: elasticity normal Neuro General: patient oriented x3 Cranial nerves: Yes Equal, round and reactive pupils present and Yes Bilaterally intact EOM present Cognition (Neuro): normal cognition Extrem Other: Moving all extremities well without any obvious deformities Course Course Course Narrative: This is a rapid medical exam performed by Cuong Astorga NP: Additional HPI, ROS, PE not included below will be deferred to primary provider. 10/11/24 20:25 Patient is a 69-year-old female presenting with complaint of abdominal pain since am. Denies nausea, vomiting, diarrhea. Normal BMs. Plan: labs, UA Reevaluation(s) Reevaluation #1: Patient's CT scan shows a splenic infarct. The patient has not had any trauma to suggest contusion. She is on Eliquis already to treat splenic infarct. She is quite comfortable, but we will send her home with a short course of tramadol. Discussed with attending, Dr Pacheco who agrees with plan. Time: 00:32 Medications Administered Discontinued Medications Generic Name Dose Route Start Last Admin Trade Name Freq PRN Reason Stop Dose Admin Iohexol 85 ml 10/11/24 23:21 10/11/24 23:22 Iohexol 350 Mg/Ml 100 Ml Infus..Btl IV 10/11/24 23:22 85 ml ONCE ONE Administration Medical Decision Making Medical Decision Making MDM Narrative: 69-year-old female presents for evaluation of left lower abdominal pain. She was recently maybe for lactic acidosis and atrial fibrillation. She was a white count of 13.3k, no GI symptoms including vomiting, diarrhea, black or bloody stool. However she was quite time in the left lower quadrant with a leukocytosis. She was afebrile. We will get a CT scan of the abdomen pelvis to evaluate for acute diverticulitis. Urinalysis is pending to evaluate for obstructive uropathy/UTI. Differential Diagnosis Differential Diagnoses: The differential diagnosis associated with the presentation includes Colitis Diverticulitis Abdominal pain UTI Obstructive uropathy Lab Data MDM Lab Attestation statement: I reviewed the patient's lab results. Mild leukocytosis as above. No significant anemia. Normal platelet count. No significant electrolyte abnormality. Glucose elevated to 255 in the setting of known diabetes. No evidence of DKA 10/11/24 20:54 10/11/24 20:54 Labs: Lab Results 10/11/24 10/11/24 Range/Units 20:54 23:02 WBC 13.9 H (4.8-10.8) X10*3/uL RBC 5.99 H (4.20-5.50) X10*6/uL Hgb 11.1 L (12.0-16.0) g/dl Hct 37.2 (37.0-47.0) % MCV 62.1 L (80.0-98.0) fL MCH 18.5 L (27.0-33.0) pg MCHC 29.8 L (31.0-35.0) g/dl RDW 18.6 H (11.0-16.0) % Plt Count 308 (160-400) X10*3/uL MPV 10.6 (9.4-12.3) fL Immature Gran % (Auto) 0.3 (0.0-0.4) % Neut % (Auto) 71.4 (45-73) % Lymph % (Auto) 22.5 (20-40) % [place] % (Auto) 4.7 (2-11) % Eos % (Auto) 0.5 (0-4) % Baso % (Auto) 0.6 (0-2) % Lymph # (Auto) 3.1 (1.2-4.9) X10*3/uL [place] # (Auto) 0.7 (0.1-1.2) X10*3/uL Eos # (Auto) 0.1 (0.0-0.4) X10*3/uL Baso # (Auto) 0.1 (0.0-0.2) X10*3/uL Abs Immat Gran (auto) 0.04 H (0.00-0.03) X10*3/uL Absolute Neuts (auto) 9.9 H (2.0-8.3) x10*3/uL Absolute Nucleated RBC 0.000 (0.0-0.012) X10*3/uL Nucleated RBC % (auto) 0.0 (0.0-0.2) /100WBC Sodium 140 (135-145) mmol/L Potassium 4.0 (3.3-5.1) mmol/L Chloride 103 (96-108) mmol/L Carbon Dioxide 27 (22-29) mmol/L Anion Gap 14 (12-20) BUN 16 (9-16) mg/dL Creatinine 1.24 (0.5-1.4) mg/dL Estim Creat Clear Calc 42.0 Estimated GFR 43 Random Glucose 255 H (60-115) mg/dL Calcium 8.9 (8.4-10.2) mg/dL Total Bilirubin 0.3 (0.0-1.0) mg/dL AST 19 (5-31) U/L ALT 20 (0-31) U/L Alkaline Phosphatase 112 (39-117) U/L Total Protein 7.3 (6.5-8.0) g/dL Albumin 3.8 (3.5-5.0) g/dL Lipase 19 (8-78) U/L Urine Color Yellow Urine Appearance Clear Urine pH 7.0 (5.0-9.0) Ur Specific [place] >= 1.030 H (1.005-1.025) Urine Protein 30 (1+) H (Neg-Trace) mg/dL Urine Glucose (UA) >=1000 H (Negative) mg/dL Urine Ketones 15 (Negative) mg/dL Urine Blood Negative (Negative) Urine Nitrite Negative (Negative) Ur Leukocyte Esterase Negative (Negative) Urine RBC 0-2 (0-2) /HPF Urine WBC 0-5 (0-5) /HPF Ur Squamous Epith Cells 0-2 (0-2) /HPF Urine Bacteria None Seen (None Seen) Hyaline Casts 0-2 (0-2) /LPF Discharge Plan Discharge Clinical Impression: Abdominal pain, Infarction of spleen Diabetes type 2, uncontrolled Qualifiers: Glycemic state: with hyperglycemia Qualified Code(s): E11.65 - Type 2 diabetes mellitus with hyperglycemia Patient Disposition: Home, Self-Care Instructions: Abdominal Pain (ED) Additional Instructions: Your abdominal pain is likely related to a splenic infarcts seen on your CT scan. The treatment for this is pain medication and a blood thinner called Eliquis which she wore already taking Follow-up with your primary doctor, return for new or worsening symptoms. You may use Tylenol for pain. Use tramadol for more severe breakthrough pain. This may make you drowsy, do not drink alcohol or drive after taking it Prescriptions: New tramadol 50 mg tablet 50 mg PO Q6H PRN (Reason: severe pain (scale score 7-10)) Qty: 12 0RF No Action (DME) lancets [OneTouch Delica Plus Lancet] 33 gauge misc See Rx Instructions .ROUTE .COMPLEX Qty: 100 0RF Dose Instruction: USE TO TEST BLOOD SUGAR FOUR TIMES DAILY Rx Instructions: USE TO TEST BLOOD SUGAR FOUR TIMES DAILY (DME) blood pressure test kit-large Kit See Rx Instructions .Route Qty: 1 0RF Rx Instructions: As directed rosuvastatin 40 mg tablet 40 mg PO DAILY 90 Days Qty: 90 2RF (DME) blood-glucose meter [OneTouch Ultra2 Meter] [facility] Rx Instructions .Route Qty: 1 0RF Rx Instructions: As directed test 4 times a day (DME) air conditioner See Rx Instructions .Route .MEDSUPPLY Qty: 1 0RF Rx Instructions: As directed (DME) incontinence pad, liner, disp Pad See Rx Instructions .Route Qty: 120 11RF Rx Instructions: Use 1 pad every 6 hours as needed (DME) wipes flushable See Rx Instructions .Route .MEDSUPPLY Qty: 240 11RF Rx Instructions: As directed (DME) Dexcom G7 The[employer] Riding In[employer] [facility] [place] Rx Instructions .Route Qty: 1 0RF Rx Instructions: As directed (DME) lancets [FreeStyle Lancets] 28 gauge mis See Rx Instructions .Route Qty: 100 4RF Rx Instructions: As directed test 4X a day cholecalciferol (vitamin D3) [Vitamin D3] 50 mcg (2,000 unit) capsule 50 mcg PO DAILY Qty: 28 3RF (DME) OneTouch Ultra Test Strip See Rx Instructions .ROUTE .COMPLEX Qty: 100 4RF Dose Instruction: USE TO TEST BLOOD SUGAR FOUR TIMES PER DAY Rx Instructions: USE TO TEST BLOOD SUGAR FOUR TIMES PER DAY (DME) nebulizers [facility] [place] Rx Instructions .Route Qty: 1 0RF Rx Instructions: As directed albuterol sulfate [Ventolin HFA] 90 mcg/actuation HFA aerosol inhaler 2 puff inhalation Q6H PRN (Reason: shortness of breath or wheezing) 30 Days Qty: 8 1RF (DME) Dexcom G7 Sensor Device See Rx Instructions .Route Qty: 3 11RF Rx Instructions: As directed change every 10 days (DME) Grab bar [facility] [place] Rx Instructions .Route Qty: 1 0RF Rx Instructions: As directed insulin lispro [Humalog KwikPen Insulin] 100 unit/mL insulin pen 5 unit subcut TID Rx Instructions: 5 units before breakfast 7 units before lunch and dinner subcutaneously 3 times a day; Eliquis 5 mg tablet 5 mg PO BID insulin degludec [Tresiba FlexTouch U-100] 100 unit/mL (3 mL) insulin pen 7 unit subcut DAILY Trulicity 4.5 mg/0.5 mL pen injector 4.5 mg SUBCUT MO metoprolol succinate 50 mg Tablet Extended Release 24 Hr 50 mg PO DAILY Qty: 90 0RF Protocol: Hold for SBP/HR < HOLD for SBP < : 90 HOLD for HR < : 60 diltiazem HCl [Cardizem CD] 120 mg Capsule,Extended Release 24hr 120 mg PO DAILY Qty: 90 0RF Protocol: Hold for SBP/HR < HOLD for SBP < : 90 HOLD for HR < : 60 (DME) balance See Rx Instructions .Route .MEDSUPPLY Qty: 1 0RF Rx Instructions: As directed levothyroxine 137 mcg tablet 137 mcg PO DAILY@0600 Qty: 30 7RF Print Language: Cook Islander
[2024-10-11 20:25] VITALS: BP 169/52; PULSE 54; RESP 16; TEMP 36.7; O2SAT 98; BMI 33.1
[2024-10-11 20:59] LABS: MANUAL DIFF FLAG NO
[2024-10-11 21:02] LABS: Basophils Absolute Auto 0.1 X10*3/uL (0.0-0.2); Basophils Percent Auto 0.6 % (0-2); Eosinophils Absolute Auto 0.1 X10*3/uL (0.0-0.4); Eosinophils Percent Auto 0.5 % (0-4); Hematocrit 37.2 % (37.0-47.0); Hemoglobin 11.1 g/dl (12.0-16.0); Imm Gran Abs Auto 0.04 X10*3/uL (0.00-0.03); Imm Gran Pct Auto 0.3 % (0.0-0.4); Lymphocytes Absolute Auto 3.1 X10*3/uL (1.2-4.9); Lymphocytes Percent Auto 22.5 % (20-40); Mean Corpuscular HGB Conc 29.8 g/dl (31.0-35.0); Mean Corpuscular Hemoglobin 18.5 pg (27.0-33.0); Mean Platelet Volume 10.6 fL (9.4-12.3); Monocytes Absolute Auto 0.7 X10*3/uL (0.1-1.2); Monocytes Percent Auto 4.7 % (2-11); Neutrophils Absolute Auto 9.9 x10*3/uL (2.0-8.3); Neutrophils Percent Auto 71.4 % (45-73); Platelet Count 308 X10*3/uL (160-400); Red Blood Count 5.99 X10*6/uL (4.20-5.50); Red Cell Distribution Width 18.6 % (11.0-16.0); White Blood Count 13.9 X10*3/uL (4.8-10.8)
[2024-10-11 21:06] LABS: Mean Corpuscular Volume 62.1 fL (80.0-98.0)
[2024-10-11 21:13] LABS: Alanine Aminotransferase 20 U/L (0-31); Albumin Level 3.8 g/dL (3.5-5.0); Alkaline Phosphatase 112 U/L (39-117); Anion Gap 14 (12-20); Aspartate Amino Transferase 19 U/L (5-31); Bilirubin Total 0.3 mg/dL (0.0-1.0); Blood Urea Nitrogen 16 mg/dL (9-16); Calcium 8.9 mg/dL (8.4-10.2); Carbon Dioxide 27 mmol/L (22-29); Chloride 103 mmol/L (96-108); Estimated Glomerular Filt Rate 43; Glucose Random 255 mg/dL (60-115); Lipase 19 U/L (8-78); Sodium 140 mmol/L (135-145); Total Protein 7.3 g/dL (6.5-8.0)
[2024-10-11 22:34] VITALS: BP 147/66; PULSE 57; RESP 18; TEMP 36.9; O2SAT 98
[2024-10-11 23:12] LABS: Appearance Urine Clear; Color Urine Yellow; Glucose Urine UA >=1000 mg/dL (Negative); Leukocyte Esterase Urine Negative (Negative); Nitrite Urine Negative (Negative); Specific Gravity - Urine >= 1.030 (1.005-1.025); UMIC TRIGGER UACC YES; Urine Blood Negative (Negative); Urine Ketones 15 mg/dL (Negative); Urine Protein 30 (1+) mg/dL (Neg-Trace)
[2024-10-11 23:14] LABS: Bacteria Urine None Seen (None Seen); Hyaline Casts Urine 0-2 /LPF (0-2); RBC Urine 0-2 /HPF (0-2); Squamous Epithelial Cell Urine 0-2 /HPF (0-2); WBC Urine 0-5 /HPF (0-5)
[2024-10-11] MEDS: iohexoL 350 MG/ML 100 ML INFUS..BTL 85 ML IV (23:22)
[2024-10-12 00:43] VITALS: BP 161/53; PULSE 56; RESP 20; TEMP 37.1; O2SAT 99
[2024-10-12] MEDS: traMADoL HCL 50 MG TABLET PO (00:45)
[2024-10-12 00:46] VITALS: BP 161/53; PULSE 56; RESP 20; TEMP 37.1; O2SAT 99
== END 2024-10-12 00:47 | disposition home or self-care (01) ==
PROVIDERS: Registered Nurse Emergency; Emergency Provider Internal Medicine; PCP Internal Medicine
DX: D73.5 Infarction of spleen (principal); R00.0 Tachycardia, unspecified; R10.2 Pelvic and perineal pain; E11.65 Type 2 diabetes mellitus with hyperglycemia; Z79.899 Other long term (current) drug therapy
CPT/HCPCS: 36415; 74177; 80053; 81001; 83690; 85025; 99284; Q9967

== ENCOUNTER → 2024-10-11 22:48 | Outpatient (BNV) | payer OTHER, SELFPAY | PROVIDERS: Emergency Provider Internal Medicine; PCP Internal Medicine; Visit Provider Radiology Diagnostic Radiology | DX: S36.020A Minor contusion of spleen, initial encounter (principal); R10.32 Left lower quadrant pain | CPT/HCPCS: 74177 ==

== ENCOUNTER 2024-10-14 09:09 | Outpatient (AMB) | payer OTHER, SELFPAY ==
[2024-10-14 09:20] VITALS: BP 104/54; PULSE 55; O2SAT 95; BMI 33.0
--- NOTE | 2024-10-14 09:20 | MHC.OFFVIS ---
Vital Signs 10/14/24 09:20 Height 5 ft 1 in Weight 174 lb 13.225 oz BMI 33.0 BP 104/54 L Blood Pressure Location Rt brachial Position Sitting Pulse 55 Pulse Source Pulse Oximeter Pulse Oximetry (%) 95 Oxygen Delivery Method Room Air Intake Visit Reasons: Hypothyroidism Intake Note: Patient present today for Hypothyroidism follow up. Firer Diesel Locomotive Required: Yes Firer Diesel Locomotive Language: Service Desk Manager Services: Firer Diesel Locomotive Present Firer Diesel Locomotive Name: Gean [id number] Information Interpreted: non-clinical & clinical Accompanied by: Self / Same As Patient Allergies empagliflozin [From JARDIANCE] Allergy (Intermediate, Verified 10/14/24 09:24) ITCHY/RASH JARDIANCE Allergy (Intermediate, Uncoded 10/14/24 09:24) pruritus Medication List - Last Reconciled 10/14/24 by Madhuri Guo MD [air conditioner As directed] apixaban (Eliquis) 5 mg PO BID [balance As directed] blood pressure test kit-large As directed blood sugar diagnostic (Publictivityuch Ultra Test strips) USE TO TEST BLOOD SUGAR FOUR TIMES PER DAY blood-glucose meter (iTwin Ultra2 Meter) As directed test 4 times a day blood-glucose,supervisory civil engineer,cont (Dexcom G7 Hand Cementer) As directed cholecalciferol (vitamin D3) (Vitamin D3) 50 mcg PO DAILY Dexcom G7 Sensor (blood-glucose sensor) As directed change every 10 days NS diltiazem HCl CD (Cardizem CD) 120 mg See Protocol PO DAILY dulaglutide (Trulicity) 4.5 mg subcut MO Grab bar As directed incontinence pad, liner, disp Use 1 pad every 6 hours as needed insulin degludec (Tresiba FlexTouch U-100 insulin) 7 units subcut DAILY insulin lispro (Humalog KwikPen (U-100) Insulin) 5 units subcut TID lancets (Integrated Corporate HealthTouch Delica Plus Lancet) USE TO TEST BLOOD SUGAR FOUR TIMES DAILY lancets (FreeStyle Lancets) As directed test 4X a day levothyroxine 137 mcg PO DAILY@0600 metoprolol succinate ER 50 mg See Protocol PO DAILY nebulizers As directed rosuvastatin 40 mg PO DAILY 90 days tramadol 50 mg PO Q6H PRN Ventolin HFA 90 mcg/actuation (albuterol sulfate) 2 puffs inhalation Q6H PRN 30 days NS [wipes flushable As directed] HPI Comments Details: 69-year-old female coming in today for follow up of papillary thyroid cancer status post total thyroidectomy in May 2017, with Dr. Theron Whalen at [facility], 3.2 cm focus with positive lymphovascular extension, positive perineural extension, positive ETE to soft tissue but not to skeletal muscle, margins free of tumor, 3/4 positive lymph nodes. Unclear AJCC stage but labeled as stage IV A (pT3, N1a, MX), MUSTAPHA inital high risk of recurrence currently, MUSTAPHA excellent response to therapy. She sees Adenike Guajardo NP for diabetes melitus in our office, last visit 07/16/24, will be seeing ELLIOTT Rosario for fup. History of PTC in detail 05/02/2017: Total thyroidectomy with Dr. Theron Whalen at [facility] to be wet [facility], pathology report showed tumor size 3.2 X 3 X 2.9 cm, PTC classic variant, positive lymphovascular extension, positive perineural extension, positive extrathyroidal extension to soft tissue but not to skeletal muscle, margins free of tumor, lymph nodes examined 09/02 positive for tumor. Left upper parathyroid gland was a hyperplastic and removed. AJCC stage Ivy ?? PT3, N1a, MX. Unclear why it says pT3, should be pT4b?? per description 09/21/2017: Whole-body scan post remnant ablation showed no metastasis, only uptake in the neck. 10/12/2017: Treatment with GALAVIZ 104.7 mCi I 131 09/29/2020: Whole-body scan showed faint focus of radiotracer uptake in the left hypopharyngeal wall. There was no corresponding abnormality in CT images. TSH was 30.16, TG level was 0.6 ng/mL. 04/03/2022: Ultrasound head and neck with multiple normal-appearing lymph nodes. 02/27/2023: Labs TSH 44.9, free T4 0.66, TG level 0.6, TG antibody less than 1 11/07/2023 TSH 30.29, consistent with poor adherence to levothyroxine. No thyroglobulin level done. 07/16/24: TSH 1.6, free t4 1.29, Tg <0.1, tg ab 2 Currenctly taking levothyroxine 137 mcg daily , reports good adherence now. Interval history 09/24/2024: Ultrasound of the neck I reviewed the images myself, shows normal-appearing bilateral lymph nodes. 10/01/24: TSH done during hospitalisation was 4.39 , she was hospitalized in September due to atrial fibrillation/acute hypokalemia/worsening of chronic diarrhea Tiredness better. Denies palpitations. Denies tremors. Bowel movements are regular. Weight stable. Reports some non adherence with levothyroxine 137 mcg daily. Denies any new lumps or bumps in neck, reports some intermittent choking not new , sometimes reports voice hoarseness Physical exam General: sitting comfortably in no acute distress HEENT: normocephalic/atraumatic, Neck: supple, symmetrical, no palpble masses or lymphnodes , no dorsocervical or supraclavicular fat pads Cardiac: normal heart sounds Pulm: normal breath sounds B/L, no added breath sounds Abd: not distended, no tenderness Extremities: no edema, no signs of myxedema Laboratory Tests 05/22/18 05/31/18 08/07/18 11:45 09:00 05:13 TSH Free T4 1.84 1.83 1.52 Thyroglobulin Thyroglobulin Antibody 11/11/18 06/11/19 12/11/19 11:00 11:30 09:59 TSH Free T4 1.34 1.30 1.21 Thyroglobulin 0.1 H <0.1 <0.1 Thyroglobulin Antibody <1 <1 <1 05/25/20 09/07/20 09/20/20 10:10 12:52 14:02 TSH 0.40 12.85 H 30.16 H Free T4 1.32 0.48 L 0.51 L Thyroglobulin <0.1 0.6 H Thyroglobulin Antibody <1 <1 11/04/20 04/03/22 04/03/22 12:45 10:45 10:45 TSH 3.62 5.82 H Free T4 1.51 Thyroglobulin 0.1 H Thyroglobulin Antibody <1 <1 06/12/22 02/27/23 11/07/23 09:05 10:02 10:56 TSH 5.65 H 44.90 H 30.29 H Free T4 1.20 0.66 L Thyroglobulin 0.6 L Thyroglobulin Antibody Laboratory Tests 07/16/24 10:03 TSH 1.60 Free T4 1.29 Thyroglobulin <0.1 L Thyroglobulin LC-MS/MS <0.4 Thyroglobulin Antibody 2 H Laboratory Tests 07/16/24 10/01/24 10:03 12:39 TSH 1.60 4.39 H Free T4 1.29 Thyroglobulin <0.1 L Thyroglobulin LC-MS/MS <0.4 Thyroglobulin Antibody 2 H ULTRASOUND SOFT TISSUE HEAD AND NECK 09/24/24 Comparison: US/SR - US SOFT TISS HEAD AND/OR NECK - 04/03/22 09:03 EDT Findings: There is a left level 3 circumscribed cystic lesion which measures 1.2 x 0.3 x 0.8 cm. No significant intralesional or perilesional color flow. No posterior acoustic shadowing. There is a left level 4 circumscribed cystic lesion which measures 0.8 x 0.5 x 0.5 cm. No significant intralesional or perilesional color flow. No posterior acoustic shadowing. There are multiple right level 1A, 1B and 3 nonenlarged lymph nodes with benign morphology. The largest lymph node measures 0.9 x 0.3 x 1.0 cm. There is a left level 3 mildly enlarged lymph node with benign morphology that measures 2.2 x 0.6 x 1.3 cm. There is a left level 4 borderline nonenlarged lymph node with benign morphology that measures 1.1 x 0.5 x 0.4 cm. Impression: 1. Subtotal thyroidectomy. 2. Multiple nonenlarged to mildly enlarged benign lymph nodes bilaterally. 3. Nonspecific cystic lesions in the left neck at the level 3 and level 4 regions. This document has been electronically signed by: Andreina Benitez DO on 09/24/2024 13:56:41 Imaging US SOFT TISSUE HEAD/NECK 04/03/22 CLINICAL INFORMATION: Status post thyroidectomy. History of thyroid cancer. COMPARISON: Ultrasound soft tissue 03/17/2019. TECHNIQUE: Ultrasound of the neck soft tissues is performed with high-frequency gamez-scale imaging and color Doppler. FINDINGS: THYROID BED: Prior thyroidectomy. No residual thyroid tissue demonstrated in the thyroid bed. No cystic or solid nodules demonstrated in the thyroid bed. RIGHT NECK SOFT TISSUES: Scattered architecturally normal nodes are present. The nodes show normal fatty hilus, normal cortical thickness, and no cystic change or calcification. No abnormal color-flow. The largest nodes are as follows: Level 3: 0.6 x 0.6 x 0.5 cm. Normal johnny architecture. Previous 1.0 0.2 x 0.8 cm. Level 3: 0.5 x 0.4 x 0.4 cm. Normal johnny architecture. Not seen previously. Level 3: 0.7 x 0.5 x 0.5 cm. Normal johnny architecture. Not seen previously. Level 5A: 1.0 x 0.3 x 0.6 cm. Normal johnny architecture. Previous 0.6 x 0.3 x 0.3 cm. LEFT NECK SOFT TISSUES: Scattered architecturally normal nodes are present. The nodes show normal fatty hilus, normal cortical thickness, and no cystic change or calcification. No abnormal color-flow. The largest nodes are as follows: Level 1B: 0.5 x 0.3 x 0.5 cm. Normal johnny architecture. Not seen previously. Level 2: 0.4 x 0.3 x 0.8 cm. Normal johnny architecture. Previous 1.3 x 0.6 x 1.3 cm. Level 3: 0.7 x 0.3 x 1.1 cm. Normal johnny architecture. Not seen previously. Level 3: 0.9 x 0.6 x 0.9 cm. Normal johnny architecture. Previous 0.9 x 0.5 x 1.0 cm. Level 3: 0.7 x 0.4 x 0.6. Normal johnny architecture. Not seen previously. Level 5B: 1.5 x 0.5 x 1.0 cm. Normal johnny architecture. Previous 0.4 x 0.2 x 0.5 cm. US/US soft tiss head and/or neck IMPRESSION: 1. Total thyroidectomy with no residual thyroid tissue seen. Multiple benign neck lymph nodes. 2. If clinically indicated, further evaluation of the neck soft tissues and nodes may be performed with CT soft tissue neck with intravenous contrast. 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 Mother Arthritis Social History Household Members: Spouse and Children Housing: Apartment Do you presently have visiting nurse or other home services: Yes (Daughter is DELIVERY AND INSTALLATION SUBCONTRACTOR) Alcohol intake: never Patient Tobacco Use Status: Never used Tobacco e-Cigarette/Vaping Use: Never Used Second Hand Smoke Exposure: No service: No Current occupational status: disabled Cognitive needs: No Hearing needs: No Vision needs: No Physical Exam Vital Signs: Last Vital Signs Pulse 55 10/14/24 09:20 BP 104/54 L 10/14/24 09:20 Pulse Ox 95 10/14/24 09:20 Oxygen Delivery Method Room Air 10/14/24 09:20 BMI result Body Mass Index 33.0 Assessment & Plan Assessment & Plan (1) Thyroid cancer: Code(s): C73 - Malignant neoplasm of thyroid gland Category: Medical Plan: 69-year-old female coming in today for follow up of papillary thyroid cancer status post total thyroidectomy in May 2017, with Dr. Theron Whalen at [facility], 3.2 cm focus with positive lymphovascular extension, positive perineural extension, positive ETE to soft tissue but not to skeletal muscle, margins free of tumor, 3/4 positive lymph nodes. Unclear AJCC stage but labeled as stage IV A (pT3, N1a, MX), MUSTAPHA inital high risk of recurrence currently, MUSTAPHA excellent response to therapy based on unremarkable US findings ( last us 04/2022) and stimulated Tg of 0.6 and unstimulated Tg of 0.1. Las tset of tumor markers 07/16/24: TSH 1.6, free t4 1.29, Tg <0.1, tg ab 2 09/24/2024: Ultrasound of the neck I reviewed the images myself, shows normal-appearing bilateral lymph nodes. Given MUSTAPHA excellent response to therapy , TSh goal 0.5- 2. Last TSH early in September during hospitalization was elevated at 4.39, this was while she was sick plus she presses some non adherence to levothyroxine. I emphasized importance of taking it regularly. We will repeat labs in 8 weeks. Plan : -Continue levothyroxine 137 mcg daily -Goal TSH 0.5-2 -ordered TSH, free T4, TG and TG antibodies to be done in 8 weeks -follow up in 6 months -next ultrasound of the neck would be due August 2025 (2) Hypothyroidism: Code(s): E03.9 - Hypothyroidism, unspecified Category: Medical Qualifiers: Hypothyroidism type: postoperative Qualified Code(s): E89.0 - Postprocedural hypothyroidism Plan: Post surgical hypothyrodism. Poor adherence historically to levothyroxine intermittently, now with better adherence. Given MUSTAPHA excellent response to therapy , TSh goal 0.5- 2. Last TSH early in September during hospitalization was elevated at 4.39, this was while she was sick plus she presses some non adherence to levothyroxine. I emphasized importance of taking it regularly. We will repeat labs in 8 weeks. Plan : -Continue levothyroxine 137 mcg daily -Goal TSH 0.5-2 -ordered TSH, free T4 to be done in 8 weeks Plan see above Orders: Orders Thyroid Stimulating Hormone 8 Weeks C73 - Malignant neoplasm of thyroid gland, E89.0 - Postprocedural hypothyroidism Thyroglobulin Antibodies 8 Weeks C73 - Malignant neoplasm of thyroid gland, E89.0 - Postprocedural hypothyroidism Thyroglobulin Tumor Marker 8 Weeks C73 - Malignant neoplasm of thyroid gland, E89.0 - Postprocedural hypothyroidism Thyroglobulin 8 Weeks C73 - Malignant neoplasm of thyroid gland, E89.0 - Postprocedural hypothyroidism Free T4 (Free Thyroxine) 8 Weeks C73 - Malignant neoplasm of thyroid gland, E89.0 - Postprocedural hypothyroidism Medications: Refilled levothyroxine 137 mcg PO DAILY@0600 30 tabs 9RF Patient Instructions: Continue levothyroxine 137 mcg daily Do blood work in 8 weeks Follow up in 6 months Continuar con levotiroxina 137 mcg al d?a. Realizar an?lisis de yosef en 8 semanas. Seguimiento en 6 meses. Coding Level of Care Code Est Pt Level 3 (37888) Complex EM visit Add On G2211 Diagnoses Thyroid cancer C73 Postoperative hypothyroidism E89.0 Hypothyroidism type: postoperative
--- OUTSIDE RECORDS SUMMARY | 2024-10-14 10:14 | XMS_ITS | Clinical Summary ---
Author Organization [employer] Address [address] [place] [address] [address] [place] [address] Care Team Providers Care Service Worker Name Role Phone Unavailable Primary Care [...] complication, with long-term current use of insulin ([facility]) INJETAR 20 UNIDADES SUBCUTANEAS TEDDY VEZ AMANDA. 15 mL 11 06/08/20 23 Active lisinopril 10 MG tablet TAKE 1 TABLET BY MOUTH DAILY 28 tablet 3 06/28/20 23 Active Encounters Date Type Department Care Team Description 10/08/2024 Refill [facility] [address] [place] [address] Ganesh Alvarado MD 09/24/[address] [facility] [address] [place] [address] Ganesh Alvarado MD 08/26/[address] [facility] [address] [place] [address] Ganesh Alvarado MD 07/29/[address] [facility] [address] [place] [address] Ganesh Alvarado MD from Last 3 Months [...] (ABNORMAL) LIPID PANEL (05/25/2020 10:10 AM EST) [facility] Signature Cholesterol 186 mg/dL [facility] [...] >60 [facility] Comment: NOTE: ??For -[place]osoth[place] individuals, multiply the result ?by . ?? [...] Total Protein 6.9 6.5 - 8.0 g/dL [facility] Vitamin D 25-OH Total 50.3 >30 ng/mL [facility] Comment: Health Based Reference Values* [...] (Free Thyroxine) 1.32 0.71 - 1.85 ng/dL [facility] 05/25/2020 10:1 0 AM EST us Historical Provider HISTORICAL/NON ORDERABLE LABS Final Result [facility] [address] * Mammography Report 1 (05/04/2020 9:06 [...] Date of Phone Billing Address Personal/Family Self [place] [address] [address]
--- OUTSIDE RECORDS SUMMARY | 2024-10-14 10:14 | XMS_ITS | Encounter Summary ---
Author Organization [employer] Address [address] [place] [address] [address] [place] [address] Care Team Providers Care Special Education Itinerant Teacher Name Role Phone Unavailable Primary Care Provider Unavailabl e Reason for Visit * Reason Comments Med Refill Encounter Details Date Type Department Care Team ([facility] st Contact Info) Description 08/26/2024 Refill [facility] [address] [place] [address] Ganesh Alvarado MD [address] [place] [address] Social History Tobacco Use Types Packs/Day Years [...]
--- OUTSIDE RECORDS SUMMARY | 2024-10-14 10:14 | XMS_ITS | Encounter Summary ---
Author Organization [employer] Address [address] [place] [address] 7t [place] [address] Care Team Providers Care Tag And Label Cutter Name Role Phone Unavailable Primary Care Provider Unavailabl e Reason for Visit * Reason Comments Med Refill Encounter Details Date Type Department Care Team ([facility] st Contact Info) Description 10/08/2024 Refill [facility] CHC MED & PEDS [address] [place] [address] Ganesh Alvarado MD [address] [place] [address] Social History Tobacco Use Types Packs/Day Years [...]
--- OUTSIDE RECORDS SUMMARY | 2024-10-14 10:14 | XMS_ITS | Encounter Summary ---
Author Organization [employer] Address [address] [place] [address] 7t [place] [address] Care Team Providers Care Java Lead Developer Name Role Phone Unavailable Primary Care Provider Unavailabl e Reason for Visit * Reason Comments Med Refill Encounter Details Date Type Department Care Team ([facility] st Contact Info) Description 07/29/2024 Refill [facility] CHC MED & PEDS [address] [place] [address] Ganesh Alvarado MD [address] [place] [address] Social History Tobacco Use Types Packs/Day Years [...]
--- OUTSIDE RECORDS SUMMARY | 2024-10-14 10:14 | XMS_ITS | Encounter Summary ---
Author Organization [employer] Address [address] [place] [address] 7t [place] [address] Care Team Providers Care Fence Installer Foreman Name Role Phone Unavailable Primary Care Provider Unavailabl e Reason for Visit * Reason Comments Med Refill Encounter Details Date Type Department Care Team ([facility] st Contact Info) Description 05/06/2024 Refill [facility] CHC MED & PEDS [address] [place] [address] Ganesh Alvarado MD [address] [place] [address] Social History Tobacco Use Types Packs/Day Years [...]
--- OUTSIDE RECORDS SUMMARY | 2024-10-14 10:14 | XMS_ITS | Encounter Summary ---
Author Organization [employer] Address [address] [place] [address] 7t [place] [address] Care Team Providers Care English As A Second Language Teacher Name Role Phone Unavailable Primary Care Provider Unavailabl e Reason for Visit * Reason Comments Med Refill Encounter Details Date Type Department Care Team ([facility] st Contact Info) Description 11/06/2023 Refill [facility] CHC MED & PEDS [address] [place] [address] Ganesh Alvarado MD 505 [place] [address] Social History Tobacco Use Types Packs/Day Years [...]
--- OUTSIDE RECORDS SUMMARY | 2024-10-14 10:14 | XMS_ITS | Encounter Summary ---
Author Organization [employer] Address [address] [place] [address] 7t [place] [address] Care Team Providers Care Pattern Shop Supervisor Name Role Phone Unavailable Primary Care Provider Unavailabl e Reason for Visit * Reason Comments Med Refill Encounter Details Date Type Department Care Team ([facility] st Contact Info) Description 11/02/2023 Refill [facility] CHC MED & PEDS [address] [place] [address] Ganesh Alvarado MD [address] [place] [address] Social History Tobacco Use Types Packs/Day Years [...]
--- OUTSIDE RECORDS SUMMARY | 2024-10-14 10:14 | XMS_ITS | Encounter Summary ---
Author Organization [employer] Address [address] [place] [address] 7 [place] [address] Care Team Providers Care Neurology Manager Name Role Phone Ganesh Alvarado MD Primary Care Provider [phone] Encounter Details Date Type Department Care Team ([facility] st Contact Info) Description 11/24/[address] [facility] CHC MED & PEDS [address] [place] [address] Ganesh Alvarado MD [address] [place] [address] Social History Tobacco Use Types Packs/Day Years [...] on filedocumented in this encounter Care Teams Neurology Manager Relationship Specialty Start Date End Date Ganesh Alvarado MD [address] [place] [address] PCP - General Internal Medicine 12/21/17 09/05/23 documented as of this encounter
--- OUTSIDE RECORDS SUMMARY | 2024-10-14 10:14 | XMS_ITS | Encounter Summary ---
Author Organization [employer] Address [address] [place] [address] 7t [place] [address] Care Team Providers Care Leasing Property Manager Name Role Phone Unavailable Primary Care Provider Unavailabl e Reason for Visit * Reason Comments Med Refill Encounter Details Date Type Department Care Team ([facility] st Contact Info) Description 06/04/2024 Refill [facility] CHC MED & PEDS [address] [place] [address] Ganesh Alvarado MD [address] [place] [address] Social History Tobacco Use Types Packs/Day Years [...]
--- OUTSIDE RECORDS SUMMARY | 2024-10-14 10:14 | XMS_ITS | Encounter Summary ---
Author Organization [employer] Address [address] [place] [address] 7 [place] [address] Care Team Providers Care Aerographer Name Role Phone Ganesh Alvarado MD Primary Care Provider [phone] Reason for Visit * Reason Comments Med Refill Encounter Details Date Type Department Care Team (Late st Contact Info) Description 08/06/2023 Refill [facility] MEDICINE [address] [place] [address] Ganesh Alvarado MD [address] [place], [place] [id number] Social History Tobacco Use Types Packs/Day Years [...] on filedocumented in this encounter Care Teams Aerographer Relationship Specialty Start Date End Date Ganesh Alvarado MD [address] [place] [address] PCP - General Internal Medicine 12/21/17 09/05/23 documented as of this encounter
--- OUTSIDE RECORDS SUMMARY | 2024-10-14 10:14 | XMS_ITS | Encounter Summary ---
Author Organization [employer] Address [address] [place] [address] 7t [place] [address] Care Team Providers Care School Photographs Detailer Name Role Phone Unavailable Primary Care Provider Unavailabl e Reason for Visit * Reason Comments Med Refill Encounter Details Date Type Department Care Team ([facility] st Contact Info) Description 07/01/2024 Refill [facility] CHC MED & PEDS [address] [place] [address] Ganesh Alvarado MD [address] [place] [address] Social History Tobacco Use Types Packs/Day Years [...]
--- OUTSIDE RECORDS SUMMARY | 2024-10-14 10:14 | XMS_ITS | Encounter Summary ---
Author Organization [employer] Address [address] [place] [address] 7 [place] [address] Care Team Providers Care Supervisor Mold Cleaning And Storage Name Role Phone Ganesh Alvarado MD Primary Care Provider [phone] Reason for Visit * Reason Comments Med Refill Encounter Details Date Type Department Care Team (Late st Contact Info) Description 06/08/2023 Refill [facility] CHC MED & PEDS [address] [place] [address] Ganesh Alvarado MD [address] [place] [address] Social History Tobacco Use Types Packs/Day Years [...] on filedocumented in this encounter Care Teams Supervisor Mold Cleaning And Storage Relationship Specialty Start Date End Date Ganesh Alvarado MD [address] [place] [address] PCP - General Internal Medicine 12/21/17 09/05/23 documented as of this encounter
--- OUTSIDE RECORDS SUMMARY | 2024-10-14 10:14 | XMS_ITS | Encounter Summary ---
Author Organization [employer] Address [address] [place] [address] 7t [place] [address] Care Team Providers Care Solo Musician Name Role Phone Unavailable Primary Care Provider Unavailabl e Reason for Visit * Reason Comments Med Refill Encounter Details Date Type Department Care Team ([facility] st Contact Info) Description 01/17/2024 Refill [facility] CHC MED & PEDS [address] [place] [address] Ganesh Alvarado MD [address] [place] [address] Social History Tobacco Use Types Packs/Day Years [...]
--- OUTSIDE RECORDS SUMMARY | 2024-10-14 10:14 | XMS_ITS | Encounter Summary ---
Author Organization [employer] Address [address] [place] [address] 7t [place] [address] Care Team Providers Care Forest Ranger Name Role Phone Unavailable Primary Care Provider Unavailabl e Reason for Visit * Reason Comments Med Refill Encounter Details Date Type Department Care Team ([facility] st Contact Info) Description 04/09/2024 Refill [facility] CHC MED & PEDS [address] [place] [address] Ganesh Alvarado MD [address] [place] [address] Social History Tobacco Use Types Packs/Day Years [...]
--- OUTSIDE RECORDS SUMMARY | 2024-10-14 10:14 | XMS_ITS | Encounter Summary ---
Author Organization [employer] Address [address] [place] [address] 7t [place] [address] Care Team Providers Care Hydraulic Technician Name Role Phone Unavailable Primary Care Provider Unavailabl e Reason for Visit * Reason Comments Med Refill Encounter Details Date Type Department Care Team ([facility] st Contact Info) Description 04/10/2024 Refill [facility] CHC MED & PEDS [address] [place] [address] Ganesh Alvarado MD [address] [place] [address] Social History Tobacco Use Types Packs/Day Years [...]
--- OUTSIDE RECORDS SUMMARY | 2024-10-14 10:14 | XMS_ITS | Encounter Summary ---
Author Organization [employer] Address [address] [place] [address] 7t [place] [address] Care Team Providers Care Call Center Operations Manager Name Role Phone Unavailable Primary Care Provider Unavailabl e Reason for Visit * Reason Comments Med Refill Encounter Details Date Type Department Care Team (Late st Contact Info) Description 10/18/2023 Refill [facility] MEDIC[facility] [address] [place] [address] Ganesh Alvarado MD [address] [place] [address] Social History Tobacco Use Types Packs/Day Years [...]
== END 2024-10-14 10:26 | disposition home or self-care (01) ==
LOC: HO.ENCR 09:19
PROVIDERS: PCP Internal Medicine; Visit Provider Student in an Organized Health Care Education/Training Program
DX: C73 Malignant neoplasm of thyroid gland (principal); E89.0 Postprocedural hypothyroidism
CPT/HCPCS: 99213; G2211

== ENCOUNTER 2024-10-14 09:09 | Outpatient (AMB) | payer OTHER, SELFPAY ==
--- NOTE | 2024-10-14 09:28 | A.OFFVIS_ITS ---
Vital Signs 10/14/24 09:51 10/14/24 10:17 Height 5 ft 1 in Weight 174 lb BMI 32.9 BP 98/56 L 102/54 L Blood Pressure Location Rt brachial Position Sitting Pulse 54 Pulse Source Pulse Oximeter Pulse Oximetry (%) 95 Oxygen Delivery Method Room Air Intake Visit Reasons: T2DM Intake Note: Patient present today to follow up on Type 2 Diabetes Mellitus. Last Diabetic Eye exam: Due Last Podiatry Visit: Does not see a Tile Presser Random Glucose: 221 mg/dl HgA1C: 9.0% 10/02/2024 Student Financial Services Counselor Required: Yes Student Financial Services Counselor Language: Document Image Technician Services: Student Financial Services Counselor Present Information Interpreted: non-clinical & clinical Accompanied by: Self / Same As Patient Allergies empagliflozin [From JARDIANCE] Allergy (Intermediate, Verified 10/14/24 09:56) ITCHY/RASH JARDIANCE Allergy (Intermediate, Uncoded 10/14/24 09:56) pruritus HPI Comments Details: 69-year-old female with a past medical history of atrial fibrillation, cardiomyopathy, type 2 diabetes, anemia, hypertension, hyperparathyroidism and thyroid cancer presents for follow up. She is followed by Dr. Guo for thyroid cancer who she saw this morning. Her hemoglobin A1c has increased to 9% on 10/02/2024. It was 8% 07/14/2024. Patient reports that she does not have any sensors, and she needs refills sent to the pharmacy. She does not have a glucometer with her today. She reports fasting sugars are between 90-130. She reports low blood sugars twice a week overnight. She treats with orange juice. Current regimen: Tresiba 14 units in the morning, Humalog 5 units before lunch and 8 units before lunch and dinner and Trulicity 4.5 mg weekly. Patient reports she has not had Trulicity for the past 3 weeks. Past medications: She was recently hospitalized with lactic acidosis and atrial fibrillation with RVR, and metformin ER 1000 mg was discontinued at the hospital when she reported frequent diarrhea with the medicine, and she had lactic acidosis. Jardiance and Farxiga discontinued due to yeast infection. Complications: Neuropathy. She is treated with rosuvastatin for hyperlipidemia. ROS: Constitutional: No unexplained weight loss, fevers or chills Eyes: No vision changes, blurry vision, double vision Respiratory: No shortness of breath Cardiovascular: No chest pain, palpitations or pedal edema Gastrointestinal: No anorexia, nausea, vomiting or diarrhea. No abdominal pain Genitourinary: No dysuria, hematuria, urinary frequency. Neurologic: No headache, dizziness, syncope or weakness. Endocrine: No polyuria or polydipsia. Physical exam: Constitutional: Alert, in no distress. Neck: Supple, Full range of motion. No lymphadenopathy. Respiratory: Clear to auscultation. Cardiovascular: S1 S2 regular. No murmurs. Neurologic: No focal neurological deficits Extremities: Warm and well perfused. No clubbing, cyanosis or edema. 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 Mother Arthritis Social History Household Members: Spouse and Children Housing: Apartment Do you presently have visiting nurse or other home services: Yes (Daughter is DESIGN CENTER CONSULTANT) Alcohol intake: never Patient Tobacco Use Status: Never used Tobacco e-Cigarette/Vaping Use: Never Used Second Hand Smoke Exposure: No service: No Current occupational status: disabled Cognitive needs: No Hearing needs: No Vision needs: No Physical Exam Vital Signs: Last Vital Signs Pulse 54 10/14/24 09:51 BP 102/54 L 10/14/24 10:17 Pulse Ox 95 10/14/24 09:51 Oxygen Delivery Method Room Air 10/14/24 09:51 BMI result Body Mass Index 32.9 Results Reviewed Results Reviewed: Laboratory Last Values Glucose (Clinic) 221 mg/dL (60-115) H 10/14/24 09:54 Laboratory Tests 11/07/23 11/07/23 02/22/24 09:41 11:47 09:23 Plt Count Creatinine Estimated GFR Hgb A1c (Clinic) 9.1 H 8.7 H Hemoglobin A1c % AST ALT Alkaline Phosphatase Urine Creatinine 248.12 Urine Microalbumin 12.0 Microalb/Creat Ratio 4.8 05/27/24 07/14/24 10/02/24 09:25 09:16 05:37 Plt Count Creatinine Estimated GFR Hgb A1c (Clinic) 8.5 H 8.0 H Hemoglobin A1c % 9.0 H AST ALT Alkaline Phosphatase Urine Creatinine Urine Microalbumin Microalb/Creat Ratio 10/11/24 20:54 Plt Count 308 Creatinine 1.24 Estimated GFR 43 Hgb A1c (Clinic) Hemoglobin A1c % AST 19 ALT 20 Alkaline Phosphatase 112 Urine Creatinine Urine Microalbumin Microalb/Creat Ratio Assessment & Plan Assessment & Plan (1) Diabetes type 2, uncontrolled: Code(s): E11.65 - Type 2 diabetes mellitus with hyperglycemia Category: Medical Qualifiers: Glycemic state: with hyperglycemia Qualified Code(s): E11.65 - Type 2 diabetes mellitus with hyperglycemia Plan: 69-year-old female with uncontrolled type 2 diabetes. Medication changes: Tresiba 14 units every morning Humalog 5 units before breakfast, 8 units before lunch and 5 units before dinner Restart Trulicity 4.5 mg once weekly Patient instructed to bring glucometer to all visits. Placed Dexcom G7 sensor on the patient, and she left with a in the warm up. Sensor refills sent to pharmacy. If you experience low blood sugar, treat this by eating a chewable fruit candy like skittles or jelly beans (about 8 pieces), 4 ounces (1/2 cup) of fruit juice (not diet), 1 tablespoon of honey or 4 glucose tablets. If your blood sugar is under 55, take double the amount of one of the above. Recheck your blood sugar in 15 minutes. Follow up in 2 weeks for type 2 diabetes to review sensor data. Medications: New dulaglutide (Trulicity) 4.5 mg (0.5 mL) subcut MO 2 mL 1RF Refilled Dexcom G7 Sensor (blood-glucose sensor) As directed change every 10 days 3 ea 11RF NS E11.65 - Type 2 diabetes mellitus with hyperglycemia Patient Instructions: Tresiba 14 units every morning Humalog 5 units before breakfast, 8 units before lunch and 5 units before dinner Restart Trulicity 4.5 mg once weekly If you experience low blood sugar, treat this by eating a chewable fruit candy like skittles or jelly beans (about 8 pieces), 4 ounces (1/2 cup) of fruit juice (not diet), 1 tablespoon of honey or 4 glucose tablets. If your blood sugar is under 55, take double the amount of one of the above. Recheck your blood sugar in 15 minutes. Tresiba 14 unidades cada ma?krish Humalog 5 unidades antes del desayuno, 8 unidades antes del almuerzo y 5 unidades antes de la anthony Reinicie Trulicity 4.5 mg lia vez a la semana Si experimenta niveles bajos de az?car en la yosef, tr?telo con un caramelo masticable de fruta lolis Skittles o Jelly Beans (aproximadamente 8 piezas), 113 ml (1/2 taza) de jugo de fruta (no light), 1 cucharada de miel o 4 tabletas de glucosa. Si simental nivel de az?car en la yosef es inferior a 55, tome el doble de la cantidad de chace de los medicamentos mencionados. Vuelva a medir simental nivel de az?car en la yosef en 15 minutos. Coding Level of Care Code Est Pt Level 4 (22891) Complex EM visit Add On G2211 Diagnoses Uncontrolled type 2 diabetes mellitus with hyperglycemia E11.65 Glycemic state: with hyperglycemia
[2024-10-14 09:51] VITALS: BP 98/56; PULSE 54; O2SAT 95; BMI 32.9
[2024-10-14 09:58] LABS: Glucose, Whole Blood 221 mg/dL (60-115)
[2024-10-14 10:17] VITALS: BP 102/54
== END 2024-10-14 10:27 | disposition home or self-care (01) ==
LOC: HO.ENCR 09:19
PROVIDERS: PCP Internal Medicine; Visit Provider Physician Assistant Medical
DX: E11.65 Type 2 diabetes mellitus with hyperglycemia (principal)

== ENCOUNTER → 2024-10-14 09:09 | Outpatient (BNVA) | payer OTHER, SELFPAY | PROVIDERS: PCP Internal Medicine; Visit Provider Student in an Organized Health Care Education/Training Program | DX: E89.0 Postprocedural hypothyroidism (principal); C73 Malignant neoplasm of thyroid gland; E11.65 Type 2 diabetes mellitus with hyperglycemia; Z79.4 Long term (current) use of insulin; Z79.85 Long-term (current) use of injectable non-insulin antidiabetic drugs | CPT/HCPCS: 82947; 99212 ==

== ENCOUNTER 2024-10-17 08:43 | Outpatient (AMB) | payer OTHER, SELFPAY ==
--- NOTE | 2024-10-17 08:46 | MHC.PC.OV ---
Vital Signs 10/17/24 08:56 10/17/24 09:21 Height 5 ft 1 in Weight 175 lb 4 oz BMI 33.1 BP 142/70 H 140/68 H Blood Pressure Location Lt brachial Rt brachial Position Sitting Sitting Pulse 52 Pulse Source Pulse Oximeter Temp 97.3 F Temp Source Temporal Artery Scan Pulse Oximetry (%) 100 Oxygen Delivery Method Room Air Intake Visit Reasons: TCM [facility] 10/04 AFIB Intake Note: Patient is here for hospital discharge and [facility] follow up. Patient was discharged from [facility] on 10/04/24. Overhead Foreman Required: Yes Overhead Foreman Language: Souvenir Assembler Name: Yung ([id number]) Information Interpreted: non-clinical & clinical Experience Designer: Not Required per policy Accompanied by: Self / Same As Patient Allergies empagliflozin [From JARDIANCE] Allergy (Intermediate, Verified 10/17/24 09:02) ITCHY/RASH JARDIANCE Allergy (Intermediate, Uncoded 10/17/24 09:02) pruritus Medication List - Last Reconciled 10/17/24 by Mamta Fung PA-C [air conditioner As directed] apixaban (Eliquis) 5 mg PO BID [balance As directed] blood pressure test kit-large As directed blood sugar diagnostic (CareTreeuch Ultra Test strips) USE TO TEST BLOOD SUGAR FOUR TIMES PER DAY blood-glucose meter (Terracotta Ultra2 Meter) As directed test 4 times a day blood-glucose,career professional,cont (Dexcom G7 Aerial Applicator Pilot) As directed cholecalciferol (vitamin D3) (Vitamin D3) 50 mcg PO DAILY Dexcom G7 Sensor (blood-glucose sensor) As directed change every 10 days NS diltiazem HCl CD (Cardizem CD) 120 mg See Protocol PO DAILY dulaglutide (Trulicity) 4.5 mg (0.5 mL) subcut MO Grab bar As directed incontinence pad, liner, disp Use 1 pad every 6 hours as needed insulin degludec (Tresiba FlexTouch U-100 insulin) 14 units subcut DAILY insulin lispro (Humalog KwikPen (U-100) Insulin) subcutaneously 3 times a day; 5 units before breakfast 8 units before lunch and 5 units beofre dinner subcutaneously 3 times a day; lancets (Terracotta Delica Plus Lancet) USE TO TEST BLOOD SUGAR FOUR TIMES DAILY lancets (FreeStyle Lancets) As directed test 4X a day levothyroxine 137 mcg PO DAILY@0600 metoprolol succinate ER 50 mg See Protocol PO DAILY nebulizers As directed rosuvastatin 40 mg PO DAILY 90 days tramadol 50 mg PO Q6H PRN Ventolin HFA 90 mcg/actuation (albuterol sulfate) 2 puffs inhalation Q6H PRN 30 days NS [wipes flushable As directed] Tobacco use date assessed: 10/17/24 Fall risk assessment: No Falls in past year Last assessed Fall Risk: 10/17/24 Dental Screening Dental Screen Date: 07/14/24 HPI TCM [facility] 10/04 AFIB HPI Details 69-year-old female with past medical history of diabetes mellitus, hyperparathyroidism, thyroid cancer, hypertension, dyslipidemia, asthma, atrial fibrillation and cardiomyopathy last seen 07/[address] Ramirez coming in for hospital discharge follow up.?In review of the notes, patient was seen in [facility] ED 10/01/24 patient tachycardic at 153 chest x-ray showing cardiomegaly and EKG showing atrial fibrillation treated with diltiazem, potassium chloride and started on potassium drip and admitted for evaluation.?Rate was well controlled advised to hold metformin due to lactic acidosis and continue to follow up with endocrinology.? Patient was discharged home 10/04/2024. Patient returned to ED 10/11/2024 for evaluation of abdominal pain CT scan showing splenic infarct given short course of tramadol and discharged home. Patient was seen by endocrinology 10/14/2024 by 2 different providers continue on levothyroxine repeat ultrasound in 2025 and follow up in 6 months.?Regarding her diabetes patient was continued on Tresiba, Humalog and restarted on Trulicity and advised to follow up in 2 weeks. interpreter deaf Yung ([id number]) was used for the duration of this visit. Presenting with a rash that began last week with itching symptoms. The rash is likely due to adhesive tape from a prior IV insertion, with the patient noticing no new contributing factors such as soaps or detergents. She also reports slightly elevated blood pressure readings and a history of diabetes and thyroid cancer. No documented hypoglycemic episodes have occurred recently. There is a note of atrial fibrillation with delayed cardiology follow-up despite recent hospitalization. Abdominal pain and bowel irregularities were denied. She has an appointment with [facility] Cardiology in November. TCM TCM Information Date of Discharge 10/04/24 Discharged From [facility] Interactive Contact Date (Reference documentation from this date) 10/06/24 [facility] Medical History Hypothyroidism Asthma Pericardial effusion Pneumonitis Pleural effusion Hypoglycemia unawareness associated with type 2 diabetes mellitus Post-surgical hypothyroidism keno terminal operator (current) use of insulin Postsurgical hypothyroidism Thyroid cancer Dyslipidemia Essential hypertension Hyperparathyroidism Vitamin D deficiency Obesity (BMI 30-39.9) Diabetes type 2, uncontrolled Surgical History Hx of colonoscopy Hx of total thyroidectomy Hx of hysterectomy Family History Father No problems noted. Mother Arthritis Social History Household Members: Spouse and Children Housing: Apartment Do you presently have visiting nurse or other home services: Yes (Daughter is BUDGET SPECIALIST) Alcohol intake: never Patient Tobacco Use Status: Never used Tobacco e-Cigarette/Vaping Use: Never Used Second Hand Smoke Exposure: No service: No Current occupational status: disabled Cognitive needs: No Hearing needs: No Vision needs: No Questionnaire Thrive Questionnaire Date Thrive assessed: 07/14/24 I am a: Patient What is your living situation today?: I have a steady place to live Within the past 12 months, did the food you bought not last and you didn't have the money to get more?: I choose not to answer this question Within the past 12 months, did you worry whether your food would run out before you got money to buy more?: I choose not to answer this question Do you have trouble paying for medicines?: I choose not to answer this question Do you have trouble getting transportation to medical appointments?: I choose not to answer this question Do you have trouble paying your heating and electricity bill?: I choose not to answer this question Do you have trouble taking care of your child, family member or friend?: I choose not to answer this question Do you have trouble with day-to-day activities such as bathing, preparing meals, shopping, managing finances, etc.?: I choose not to answer this question Are you currently unemployed and looking for a job?: I choose not to answer this question Are you interested in more education?: I choose not to answer this question Please select the resources that you would like help with: None Currently or been in a relationship where the following occur: I choose not to answer THRIVE Score: 0 DIVINA-7 AMB Questionnaire DIVINA-7 Date DIVINA - 7 assessed: 07/14/24 Source: Developed by Drs. Kofi Arrington, Tracy Rowe, Al Kulkarni and colleagues, with an educational bobby from [employer]. Review of Systems Const Denies body aches, Denies chills, Denies fever(s), Denies headache(s) and Denies poor appetite Eyes Reports no additional complaints ENT Denies dysphagia, Denies dizziness, Denies headache(s) and Denies odynophagia Card Denies chest pain, Denies syncope, Denies edema, Denies irregular heart rhythm, Denies lightheadedness and Denies dyspnea Resp Denies cough and Denies dyspnea GI Denies abdominal pain, Denies constipation, Denies dysphagia, Denies diarrhea, Denies nausea, Denies odynophagia and Denies vomiting Reports no additional complaints Musc Reports no additional complaints and Denies abnormal gait Skin/Breast Reports system reviewed and no additional complaints, except as documented Neuro Denies abnormal gait, Denies dizziness, Denies syncope and Denies headache(s) Psych Reports no additional complaints Physical exam (Primary Care) Vital Signs: Last Vital Signs Temp 97.3 F 10/17/24 08:56 Pulse 52 10/17/24 08:56 BP 140/68 H 10/17/24 09:21 Pulse Ox 100 10/17/24 08:56 Oxygen Delivery Method Room Air 10/17/24 08:56 BMI result Body Mass Index 33.1 Tobacco/Smoking Status: Tobacco use Status Tobacco use date assessed 10/17/24 10/17/24 09:06 Patient Tobacco Use Status Never used Tobacco 10/17/24 08:46 e-Cigarette/Vaping Use Never Used 10/17/24 08:46 Thrive Assessment: Date of Thrive Assessment Date Thrive assessed 07/14/24 10/17/24 08:46 Currently or been in a relationship where the following occur: I choose not to answer Const General: cooperative, healthy appearing, comfortable and no acute distress Orientation/consciousness: patient oriented x3 HENMT Head: Yes normocephalic Ears: hearing grossly normal bilaterally General nose exam: Normal external nose present Eyes General: appearance normal, both eyes and all related structures Conjunctivae: conjunctivae normal Neck Neck: Yes full ROM and Yes no lymphadenopathy Resp Effort & Inspection: normal respiratory effort Auscultation: clear to auscultation bilaterally, no crackles, no rales, no rhonchi and no wheezes Cardio Rate: regular rate Rhythm: regular rhythm GI Palpation (GI): Soft to palpation, not firm, nontender, no guarding and not rigid Skin General skin exam: no rashes or lesions noted Full body images: 1. Dermatitis Neuro General: patient oriented x3 Gait exam (Neuro): Normal gait present Extrem General: Yes normal to inspection, Yes full ROM and No edema Psych Affect: normal affect Attitude: cooperative Insight: Good insight present (Psych) Judgement: Good judgement present (Psych) Coding Level of Care Code TCM Mod MDM <= 14 Days Complex EM visit Add On G2211 Diagnoses Cardiomyopathy I42.9 Atrial fibrillation with RVR I48.91 Postoperative hypothyroidism E89.0 Hypothyroidism type: postoperative Diabetes mellitus, with long-term current use of insulin E11.9; Z79.4 Essential hypertension I10 Obesity (BMI 30-39.9) E66.9 Thyroid cancer C73 Contact dermatitis L25.9 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 (2) Atrial fibrillation with RVR: Code(s): I48.91 - Unspecified atrial fibrillation Category: Medical Plan: Patient was referred to [facility] Cardiology at her last visit with Dr. Ramirez 07/2024. She recently had medications adjusted while in the hospital. She is continued on metoprolol 50 mg daily, diltiazem 120 mg daily and on anticoagulation with apixaban. (3) Hypothyroidism: Code(s): E03.9 - Hypothyroidism, unspecified Category: Medical Qualifiers: Hypothyroidism type: postoperative Qualified Code(s): E89.0 - Postprocedural hypothyroidism Plan: Continue to follow with endocrinology. She was seen after her discharge advised blood work and follow up in 6 months. (4) Diabetes mellitus, with long-term current use of insulin: Code(s): E11.9 - Type 2 diabetes mellitus without complications; Z79.4 - keno terminal operator (current) use of insulin Category: Medical Plan: Decrease the amount of carbohydrates such as pasta, bread, rice, and potatoes and limit the amount of sweets. Although fruits are generally healthy they should be eaten in moderation as they are still high in sugar. Hemoglobin A1c goal of less than 7%. Patient was continued on Tresiba and Humalog and restarted on Trulicity continue to follow with endocrinology has an appointment next week. (5) Essential hypertension: Code(s): I10 - Essential (primary) hypertension Category: Medical Plan: Continue on current blood pressure medication. Avoid salt intake and encourage healthy diet and regular exercise. (6) Obesity (BMI 30-39.9): Code(s): E66.9 - Obesity, unspecified Category: Medical Plan: Healthy diet and regular exercise is encouraged. (7) Thyroid cancer: Code(s): C73 - Malignant neoplasm of thyroid gland Category: Medical Plan: Continue to follow with endocrinology advised repeat ultrasound october 2025. Repeat blood work and follow up in 6 months with endocrinology (8) Contact dermatitis: Code(s): L25.9 - Unspecified contact dermatitis, unspecified cause Category: Medical Plan: Patient has area of contact dermatitis likely due to adhesive used for IV. No other areas of rash. Plan to use topical triamcinolone until resolution but no longer than 14 days. (9) Infarction of spleen: Code(s): D73.5 - Infarction of spleen Category: Medical Plan: Referral was placed to GI today for further management. Plan The prescribed treatment for the rash includes a topical steroid cream, to be applied twice a day for a maximum of two weeks. Management of the patient?s diabetes continues with both Trulicity and insulin, observing for any changes in blood sugar levels. Blood pressure recordings are slightly elevated at 140/78 mmHg but continue to be managed at home. Further recommendations include attempting to reschedule the cardiology appointment to a closer date regarding atrial fibrillation, to ensure timely monitoring and management. Engagement with the shore working supervisor remains advised for continual oversight of diabetes and thyroid cancer. This note was constructed using voice recognition software. While every effort has been made to ensure accuracy and repair department manager, still areas may have been included sometimes these areas may affect the content or meeting of the given symptoms. Total time spent caring for the patient today was 30 minutes. This includes time spent before the visit reviewing the chart, time spent during the visit, and time spent after the visit and documentation. Patient was informed and verbally consented to the use of an ambient scribe for clinic note documentation during this visit. Orders: Referrals Gastroenterology Referral D73.5 - Infarction of spleen Medications: New triamcinolone acetonide 0.1% 1 appl topical DAILY 15 grams 0RF
[2024-10-17 08:56] VITALS: BP 142/70; PULSE 52; TEMP 36.3; O2SAT 100; BMI 33.1
--- OUTSIDE RECORDS SUMMARY | 2024-10-17 09:07 | XMS_ITS | Encounter Summary ---
Author Organization [employer] Address [address] [place] [address] 7t [place] [address] Care Team Providers Care Filling Machine Set Up Mechanic Name Role Phone Unavailable Primary Care Provider Unavailabl e Reason for Visit * Reason Comments Med Refill Encounter Details Date Type Department Care Team ([facility] st Contact Info) Description 04/10/2024 Refill [facility] CHC MED & PEDS 505 [place] [address] Ganesh Alvarado MD 505 [place] [address] Social History Tobacco Use Types Packs/Day Years [...]
--- OUTSIDE RECORDS SUMMARY | 2024-10-17 09:07 | XMS_ITS | Encounter Summary ---
Author Organization [employer] Address [address] [place] [address] 7t [place] [address] Care Team Providers Care Stone Engraver Name Role Phone Unavailable Primary Care Provider Unavailabl e Reason for Visit * Reason Comments Med Refill Encounter Details Date Type Department Care Team ([facility] st Contact Info) Description 11/02/2023 Refill [facility] CHC MED & PEDS 505 [place] [address] Ganesh Alvarado MD 505 [place] [address] Social History Tobacco Use Types Packs/Day Years [...]
--- OUTSIDE RECORDS SUMMARY | 2024-10-17 09:07 | XMS_ITS | Encounter Summary ---
Author Organization [employer] Address [address] [place] [address] 7t [place] [address] Care Team Providers Care Platform Loader Name Role Phone Unavailable Primary Care Provider Unavailabl e Reason for Visit * Reason Comments Med Refill Encounter Details Date Type Department Care Team ([facility] st Contact Info) Description 01/17/2024 Refill [facility] CHC MED & PEDS 505 [place] [address] Ganesh Alvarado MD 505 [place] [address] Social History Tobacco Use Types Packs/Day Years [...]
--- OUTSIDE RECORDS SUMMARY | 2024-10-17 09:07 | XMS_ITS | Encounter Summary ---
Author Organization [employer] Address [address] [place] [address] 7t [place] [address] Care Team Providers Care Filler Picker Name Role Phone Unavailable Primary Care Provider Unavailabl e Reason for Visit * Reason Comments Med Refill Encounter Details Date Type Department Care Team ([facility] st Contact Info) Description 05/06/2024 Refill [facility] CHC MED & PEDS 505 [place] [address] Ganesh Alvarado MD 505 [place] [address] Social History Tobacco Use Types Packs/Day Years [...]
--- OUTSIDE RECORDS SUMMARY | 2024-10-17 09:07 | XMS_ITS | Encounter Summary ---
Author Organization [employer] Address [address] [place] [address] 7t [place] [address] Care Team Providers Care Counseling Case Manager Name Role Phone Unavailable Primary Care Provider Unavailabl e Reason for Visit * Reason Comments Med Refill Encounter Details Date Type Department Care Team ([facility] st Contact Info) Description 07/29/2024 Refill [facility] CHC MED & PEDS 505 [place] [address] Ganesh Alvarado MD 505 [place] [address] Social History Tobacco Use Types Packs/Day Years [...]
--- OUTSIDE RECORDS SUMMARY | 2024-10-17 09:07 | XMS_ITS | Encounter Summary ---
Author Organization [employer] Address [address] [place] [address] 7t [place] [address] Care Team Providers Care Public Address Servicer Name Role Phone Unavailable Primary Care Provider Unavailabl e Reason for Visit * Reason Comments Med Refill Encounter Details Date Type Department Care Team ([facility] st Contact Info) Description 06/04/2024 Refill [facility] CHC MED & PEDS 505 [place] [address] Ganesh Alvarado MD 505 [place] [address] Social History Tobacco Use Types Packs/Day Years [...]
--- OUTSIDE RECORDS SUMMARY | 2024-10-17 09:07 | XMS_ITS | Encounter Summary ---
Author Organization [employer] Address [address] [place] [address] 7 [place] [address] Care Team Providers Care Wound/Ostomy Clinical Nurse Specialist Name Role Phone Ganesh Alvarado MD Primary Care Provider [phone] Reason for Visit * Reason Comments Med Refill Encounter Details Date Type Department Care Team (Late st Contact Info) Description 06/08/2023 Refill [facility] CHC MED & PEDS 505 [place] [address] Ganesh Alvarado MD 505 [place] [address] Social History Tobacco Use Types Packs/Day Years [...] on filedocumented in this encounter Care Teams Wound/Ostomy Clinical Nurse Specialist Relationship Specialty Start Date End Date Ganesh Alvarado MD 505 [place] [address] PCP - General Internal Medicine 12/21/17 09/05/23 documented as of this encounter
--- OUTSIDE RECORDS SUMMARY | 2024-10-17 09:07 | XMS_ITS | Encounter Summary ---
Author Organization [employer] Address [address] [place] [address] 7t [place] [address] Care Team Providers Care Glue Mixer Name Role Phone Unavailable Primary Care Provider Unavailabl e Reason for Visit * Reason Comments Med Refill Encounter Details Date Type Department Care Team ([facility] st Contact Info) Description 04/09/2024 Refill [facility] CHC MED & PEDS 505 [place] [address] Ganesh Alvarado MD 505 [place] [address] Social History Tobacco Use Types Packs/Day Years [...]
--- OUTSIDE RECORDS SUMMARY | 2024-10-17 09:07 | XMS_ITS | Encounter Summary ---
Author Organization [employer] Address [address] [place] [address] 7 [place] [address] Care Team Providers Care Pipeline Superintendent Division Name Role Phone Ganesh Alvarado MD Primary Care Provider [phone] Reason for Visit * Reason Comments Med Refill Encounter Details Date Type Department Care Team (Late st Contact Info) Description 08/06/2023 Refill [facility] MEDICINE [address] [place] [address] Ganesh Alvarado MD 505 [place], [place] [id number] Social History Tobacco Use Types Packs/Day Years [...] on filedocumented in this encounter Care Teams Pipeline Superintendent Division Relationship Specialty Start Date End Date Ganesh Alvarado MD 505 [place] [address] PCP - General Internal Medicine 12/21/17 09/05/23 documented as of this encounter
--- OUTSIDE RECORDS SUMMARY | 2024-10-17 09:07 | XMS_ITS | Encounter Summary ---
Author Organization [employer] Address [address] [place] [address] 7t [place] [address] Care Team Providers Care Bisque Brusher Name Role Phone Unavailable Primary Care Provider Unavailabl e Reason for Visit * Reason Comments Med Refill Encounter Details Date Type Department Care Team ([facility] st Contact Info) Description 08/26/2024 Refill [facility] CHC MED & PEDS 505 [place] [address] Ganesh Alvarado MD 505 [place] [address] Social History Tobacco Use Types Packs/Day Years [...]
--- OUTSIDE RECORDS SUMMARY | 2024-10-17 09:07 | XMS_ITS | Encounter Summary ---
Author Organization [employer] Address [address] [place] [address] 7t [place] [address] Care Team Providers Care Printed Circuit Boards Plasma Etcher Name Role Phone Unavailable Primary Care Provider Unavailabl e Reason for Visit * Reason Comments Med Refill Encounter Details Date Type Department Care Team ([facility] st Contact Info) Description 10/08/2024 Refill [facility] CHC MED & PEDS 505 [place] [address] Ganesh Alvarado MD 505 [place] [address] Social History Tobacco Use Types Packs/Day Years [...]
--- OUTSIDE RECORDS SUMMARY | 2024-10-17 09:07 | XMS_ITS | Encounter Summary ---
Author Organization [employer] Address [address] [place] [address] 7 [place] [address] Care Team Providers Care Director Of Managed Services Name Role Phone Ganesh Alvarado MD Primary Care Provider [phone] Encounter Details Date Type Department Care Team ([facility] st Contact Info) Description 11/24/2022 Abstract [facility] CHC MED & PEDS 505 [place] [address] Ganesh Alvarado MD 505 [place] [address] Social History Tobacco Use Types Packs/Day Years [...] on filedocumented in this encounter Care Teams Director Of Managed Services Relationship Specialty Start Date End Date Ganesh Alvarado MD 505 [place] [address] PCP - General Internal Medicine 12/21/17 09/05/23 documented as of this encounter
--- OUTSIDE RECORDS SUMMARY | 2024-10-17 09:07 | XMS_ITS | Encounter Summary ---
Author Organization [employer] Address [address] [place] [address] 7t [place] [address] Care Team Providers Care Copy Preparer Name Role Phone Unavailable Primary Care Provider Unavailabl e Reason for Visit * Reason Comments Med Refill Encounter Details Date Type Department Care Team ([facility] st Contact Info) Description 11/06/2023 Refill [facility] CHC MED & PEDS 505 [place] [address] Ganesh Alvarado MD 505 [place] [address] Social History Tobacco Use Types Packs/Day Years [...]
--- OUTSIDE RECORDS SUMMARY | 2024-10-17 09:07 | XMS_ITS | Encounter Summary ---
Author Organization [employer] Address [address] [place] [address] 7t [place] [address] Care Team Providers Care Equipment Validation Engineer Name Role Phone Unavailable Primary Care Provider Unavailabl e Reason for Visit * Reason Comments Med Refill Encounter Details Date Type Department Care Team (Late st Contact Info) Description 10/18/2023 Refill [facility] MEDICINE [address] [place] [address] Ganesh Alvarado MD 505 [place] [address] Social History Tobacco Use Types Packs/Day Years [...]
--- OUTSIDE RECORDS SUMMARY | 2024-10-17 09:07 | XMS_ITS | Clinical Summary ---
Author Organization [employer] Address [address] [place] [address] 7t [place] [address] Care Team Providers Care Endless Track Vehicle Supervisor Name Role Phone Unavailable Primary Care [...] complication, with long-term current use of insulin ([facility]) INJETAR 20 UNIDADES SUBCUTANEAS TEDDY VEZ AMANDA. 15 mL 11 06/08/20 23 Active lisinopril 10 MG tablet TAKE 1 TABLET BY MOUTH DAILY 28 tablet 3 06/28/20 23 Active Encounters Date Type Department Care Team Description 10/08/[address] [facility] CHC MED & PEDS [address] [place] [address] Ganesh Alvarado MD 09/24/2024 Refill [facility] MED & PEDS 505 [place] [address] Ganesh Alvarado MD 08/26/2024 Refill [facility] MED & PEDS [address] [place] [address] Ganesh Alvarado MD 07/29/2024 Refill [facility] MED & PEDS [address] [place] [address] Ganesh Alvarado MD from Last 3 Months [...] (ABNORMAL) LIPID PANEL (05/25/2020 10:10 AM EST) [facility] Signature Cholesterol 186 mg/dL [facility] [...] >60 [facility] Comment: NOTE: ??For -[place] individuals, multiply the result ?by . ?? [...] Total Protein 6.9 6.5 - 8.0 g/dL [facility] Vitamin D 25-OH Total 50.3 >30 ng/mL [facility] Comment: Health Based Reference Values* [...] (Free Thyroxine) 1.32 0.71 - 1.85 ng/dL [facility] 05/25/2020 10:1 0 AM EST us Historical Provider HISTORICAL/NON ORDERABLE LABS Final Result [facility] [address] * Mammography Report 1 (05/04/2020 9:06 [...] Date of Phone Billing Address Personal/Family Self [place] [address] [address]
--- OUTSIDE RECORDS SUMMARY | 2024-10-17 09:07 | XMS_ITS | Encounter Summary ---
Author Organization [employer] Address [address] [place] [address] 7t [place] [address] Care Team Providers Care Specialty Plant Supervisor Name Role Phone Unavailable Primary Care Provider Unavailabl e Reason for Visit * Reason Comments Med Refill Encounter Details Date Type Department Care Team ([facility] st Contact Info) Description 07/01/2024 Refill [facility] CHC MED & PEDS 505 [place] [address] Ganesh Alvarado MD 505 [place] [address] Social History Tobacco Use Types Packs/Day Years [...]
[2024-10-17 09:21] VITALS: BP 140/68
== END 2024-10-17 09:26 | disposition home or self-care (01) ==
LOC: HO.HMCH 08:43
PROVIDERS: PCP Internal Medicine
DX: I42.9 Cardiomyopathy, unspecified (principal); I48.91 Unspecified atrial fibrillation; E11.9 Type 2 diabetes mellitus without complications; Z79.4 Long term (current) use of insulin; C73 Malignant neoplasm of thyroid gland; E89.0 Postprocedural hypothyroidism; I10 Essential (primary) hypertension; E66.9 Obesity, unspecified; L25.9 Unspecified contact dermatitis, unspecified cause; D73.5 Infarction of spleen

== ENCOUNTER → 2024-10-17 08:43 | Outpatient (BNVA) | payer OTHER, SELFPAY | PROVIDERS: PCP Internal Medicine | DX: I48.91 Unspecified atrial fibrillation (principal); E11.9 Type 2 diabetes mellitus without complications; I10 Essential (primary) hypertension; E78.5 Hyperlipidemia, unspecified; J45.909 Unspecified asthma, uncomplicated; I42.9 Cardiomyopathy, unspecified; E89.0 Postprocedural hypothyroidism; E66.9 Obesity, unspecified; C73 Malignant neoplasm of thyroid gland; L25.9 Unspecified contact dermatitis, unspecified cause; Z79.4 Long term (current) use of insulin | CPT/HCPCS: 99495 ==

== ENCOUNTER 2024-10-31 10:15 | Outpatient (AMB) | payer OTHER, SELFPAY ==
--- NOTE | 2024-10-31 10:18 | MHC.OFFVIS ---
Vital Signs 10/31/24 10:26 Height 5 ft 1 in Weight 175 lb 4.28 oz BMI 33.1 BP 92/54 L Blood Pressure Location Rt brachial Position Sitting Pulse 57 Pulse Source Pulse Oximeter Pulse Oximetry (%) 96 Oxygen Delivery Method Room Air Intake Visit Reasons: Type II diabetes Intake Note: Patient present today to follow up on Type 2 Diabetes Mellitus. Last Diabetic Eye exam: Due, Has an appointment in November 2024 Last Podiatry Visit: Does not see a Numerical Control Lathe Operator Random Glucose: 152 mg/dl HgA1C: 9.0% 10/02/2024 Optical Sales Associate Required: Yes Optical Sales Associate Language: Marine Water Tender Services: Optical Sales Associate Present Optical Sales Associate Name: Alexis [id number] Information Interpreted: non-clinical & clinical Accompanied by: Self / Same As Patient Allergies empagliflozin [From JARDIANCE] Allergy (Intermediate, Verified 10/31/24 10:26) ITCHY/RASH JARDIANCE Allergy (Intermediate, Uncoded 10/31/24 10:26) pruritus HPI Comments Details: 69-year-old female with a past medical history of atrial fibrillation, cardiomyopathy, type 2 diabetes, anemia, hypertension, hyperparathyroidism and thyroid cancer presents for follow up. She is followed by Dr. Guo for thyroid cancer who she saw this morning. Her hemoglobin A1c increased to 9% on 10/02/2024. It was 8% 07/14/2024. CGM sensors not received-office submitting to [employer]. She has a new phone, and doesn't know her account information for clarity. She does not have a glucometer with her today. She reports fasting sugars are between 100-130. Post prandially highest 200. She reports low blood sugars twice a week in the morning. She treats with orange juice. Current regimen: Tresiba 14 units in the morning, Humalog 5 units before lunch and 8 units before lunch and 5 units before dinner and Trulicity 4.5 mg weekly. Compliance issues: She is only taking this every other week due to the medication causing decreased appetite. Past medications: Metformin discontinued due to diarrhea and lactic acidosis. Jardiance and Farxiga discontinued due to yeast infection. Complications: Neuropathy. She is treated with rosuvastatin for hyperlipidemia. ROS: Constitutional: No unexplained weight loss, fevers or chills Eyes: No vision changes, blurry vision, double vision Respiratory: No shortness of breath Cardiovascular: No chest pain, palpitations or pedal edema Gastrointestinal: No anorexia, nausea, vomiting or diarrhea. No abdominal pain Genitourinary: No dysuria, hematuria, urinary frequency. Neurologic: No headache, dizziness, syncope or weakness. Endocrine: No polyuria or polydipsia. Physical exam: Constitutional: Alert, in no distress. Neck: Supple, Full range of motion. No lymphadenopathy. Respiratory: Clear to auscultation. Cardiovascular: S1 S2 regular. No murmurs. Neurologic: No focal neurological deficits Extremities: Warm and well perfused. No clubbing, cyanosis or edema. 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 Mother Arthritis Social History Household Members: Spouse and Children Housing: Apartment Do you presently have visiting nurse or other home services: Yes (Daughter is [employer]ANT) Alcohol intake: never Patient Tobacco Use Status: Never used Tobacco e-Cigarette/Vaping Use: Never Used Second Hand Smoke Exposure: No service: No Current occupational status: disabled Cognitive needs: No Hearing needs: No Vision needs: No Physical Exam Vital Signs: Last Vital Signs Pulse 57 10/31/24 10:26 BP 92/54 L 10/31/24 10:26 Pulse Ox 96 10/31/24 10:26 Oxygen Delivery Method Room Air 10/31/24 10:26 BMI result Body Mass Index 33.1 Results Reviewed Results Reviewed: Laboratory Last Values Glucose (Clinic) 152 mg/dL (60-115) H 10/31/24 10:35 Laboratory Tests 11/07/23 11/07/23 02/22/24 09:41 11:47 09:23 Plt Count Creatinine Estimated GFR Hgb A1c (Clinic) 9.1 H 8.7 H Hemoglobin A1c % AST ALT Alkaline Phosphatase Urine Creatinine 248.12 Urine Microalbumin 12.0 Microalb/Creat Ratio 4.8 05/27/24 07/14/24 10/02/24 09:25 09:16 05:37 Plt Count Creatinine Estimated GFR Hgb A1c (Clinic) 8.5 H 8.0 H Hemoglobin A1c % 9.0 H AST ALT Alkaline Phosphatase Urine Creatinine Urine Microalbumin Microalb/Creat Ratio 10/11/24 20:54 Plt Count 308 Creatinine 1.24 Estimated GFR 43 Hgb A1c (Clinic) Hemoglobin A1c % AST 19 ALT 20 Alkaline Phosphatase 112 Urine Creatinine Urine Microalbumin Microalb/Creat Ratio Assessment & Plan Assessment & Plan (1) Diabetes type 2, uncontrolled: Code(s): E11.65 - Type 2 diabetes mellitus with hyperglycemia Category: Medical Qualifiers: Glycemic state: with hyperglycemia Qualified Code(s): E11.65 - Type 2 diabetes mellitus with hyperglycemia Plan: 69-year-old female with uncontrolled type 2 diabetes. Medication changes: Continue Tresiba 14 units every morning Continue Humalog 5 units before breakfast, 8 units before lunch and 5 units before dinner Decrease Trulicity to 3 mg and take this once a week instead of every other week. Patient instructed to bring glucometer to all visits. I will reach out to the informatics educator regarding setting up Dexcom sydni on her new phone. If you experience low blood sugar, treat this by eating a chewable fruit candy like skittles or jelly beans (about 8 pieces), 4 ounces (1/2 cup) of fruit juice (not diet), 1 tablespoon of honey or 4 glucose tablets. If your blood sugar is under 55, take double the amount of one of the above. Recheck your blood sugar in 15 minutes. Follow up in 1 month for type 2 diabetes. Medications: New dulaglutide (Trulicity) 3 mg (0.5 mL) subcut QWEEK 2 mL 3RF Discontinued dulaglutide (Trulicity) Discontinued Reason: Doctor's Order 4.5 mg (0.5 mL) subcut MO 2 mL 1RF Patient Instructions: Tresiba 14 units every morning Humalog 5 units before breakfast, 8 units before lunch and 5 units before dinner Decrease Trulicity to 3 mg weekly. If you experience low blood sugar, treat this by eating a chewable fruit candy like skittles or jelly beans (about 8 pieces), 4 ounces (1/2 cup) of fruit juice (not diet), 1 tablespoon of honey or 4 glucose tablets. If your blood sugar is under 55, take double the amount of one of the above. Recheck your blood sugar in 15 minutes. Tresiba 14 unidades cada ma?krish Humalog 5 unidades antes del desayuno, 8 unidades antes del almuerzo y 5 unidades antes de la film washer Reduzca la dosis de Trulicity a 3 mg semanales. Si experimenta niveles bajos de az?car en la yosef, tr?telo con un caramelo masticable de fruta lolis Skittles o Jelly Beans (aproximadamente 8 piezas), 113 ml (1/2 taza) de jugo de fruta (no light), 1 cucharada de miel o 4 tabletas de glucosa. Si simental nivel de az?car en la yosef es inferior a 55, tome el doble de la dosis de chace de los medicamentos mencionados. Vuelva a medir simental nivel de az?car en la yosef en 15 minutos. Coding Level of Care Code Est Pt Level 4 (58187) Complex EM visit Add On G2211 Diagnoses Uncontrolled type 2 diabetes mellitus with hyperglycemia E11.65 Glycemic state: with hyperglycemia
[2024-10-31 10:26] VITALS: BP 92/54; PULSE 57; O2SAT 96; BMI 33.1
[2024-10-31 10:40] LABS: Glucose, Whole Blood 152 mg/dL (60-115)
--- OUTSIDE RECORDS SUMMARY | 2024-10-31 11:17 | XMS_ITS | Encounter Summary ---
Author Organization [employer] Address [address] [place] [address] 7 [place] [address] Care Team Providers Care Senior Environmental Scientist Name Role Phone Ganesh Alvarado MD Primary Care Provider [phone]- [phone] Reason for Visit * Reason Comments Med Refill Encounter Details Date Type Department Care Team (Late st Contact Info) Description 06/08/2023 Refill [facility] CHC MED & PEDS 505 [place] [address] Ganesh Alvarado MD 505 [place] [address] Social History Tobacco Use Types Packs/Day Years [...] on filedocumented in this encounter Care Teams Senior Environmental Scientist Relationship Specialty Start Date End Date Ganesh Alvarado MD 505 [place] [address] PCP - General Internal Medicine 12/21/17 09/05/23 documented as of this encounter
--- OUTSIDE RECORDS SUMMARY | 2024-10-31 11:17 | XMS_ITS | Encounter Summary ---
Author Organization [employer] Address [address] [place] [address] 7t [place] [address] Care Team Providers Care Linseed Oil Boiler Name Role Phone Unavailable Primary Care Provider Unavailabl e Reason for Visit * Reason Comments Med Refill Encounter Details Date Type Department Care Team (Late st Contact Info) Description 10/18/2023 Refill [facility] MEDICINE [address] [place] [address] Ganesh Alvarado MD 505 [place] [address] Social History Tobacco Use Types Packs/Day Years [...]
--- OUTSIDE RECORDS SUMMARY | 2024-10-31 11:17 | XMS_ITS | Encounter Summary ---
Author Organization [employer] Address [address] [place] [address] 7t [place] [address] Care Team Providers Care Sweatband Perforator Name Role Phone Unavailable Primary Care Provider Unavailabl e Reason for Visit * Reason Comments Med Refill Encounter Details Date Type Department Care Team ([facility] st Contact Info) Description 10/08/2024 Refill [facility] CHC MED & PEDS [address] [place] [address] Ganesh Alvarado MD 505 [place] [address] Social History Tobacco Use Types Packs/Day Years [...]
--- OUTSIDE RECORDS SUMMARY | 2024-10-31 11:17 | XMS_ITS | Encounter Summary ---
Author Organization [employer] Address [address] [place] [address] 7t [place] [address] Care Team Providers Care Service Desk Analyst Name Role Phone Unavailable Primary Care Provider Unavailabl e Reason for Visit * Reason Comments Med Refill Encounter Details Date Type Department Care Team ([facility] st Contact Info) Description 11/02/[address] [facility] CHC MED & PEDS [address] [place] [address] Ganesh Alvarado MD 505 [place] [address] Social History Tobacco Use Types Packs/Day Years [...]
--- OUTSIDE RECORDS SUMMARY | 2024-10-31 11:17 | XMS_ITS | Encounter Summary ---
Author Organization [employer] Address [address] [place] [address] 7t [place] [address] Care Team Providers Care Sole Sewer Hand Name Role Phone Unavailable Primary Care Provider Unavailabl e Reason for Visit * Reason Comments Med Refill Encounter Details Date Type Department Care Team ([facility] st Contact Info) Description 07/29/2024 Refill [facility] CHC MED & PEDS [address] [place] [address] Ganesh Alvarado MD 505 [place] [address] Social History Tobacco Use Types Packs/Day Years [...]
--- OUTSIDE RECORDS SUMMARY | 2024-10-31 11:17 | XMS_ITS | Continuity of Care Document ---
Author Organization [employer] [facility], [place] in - inst Address [address] [place] [id number] Care Team Providers Care Shank Maker Name Role Phone HIM CCA OTHER Assessment No assessment recorded. Plan of Treatment Reminders Order Date Submit Date Provider Last Modified By Organization Details Last Modified Time Details Appointments None record ed. Lab None record ed. Referral None record ed. Procedures None record ed. Surgeries None record ed. Imaging None record ed. Medication Orders None record ed. Patient TargetsNo targets recorded. Patient InstructionsNo instructions recorded. Reason for Referral None Reported. Medical Equipment None Reported. Allergies No known drug allergies Medications Name Sig Start Date Stop Date Status Note LastModified by Organization Details LastModified Time metoprolol succinate ER 50 mg tablet,extend ed release 24 hr TOME 1 TABLETA POR V A ORAL TODOS LOS D active Not Available Not Available No t Available tramadol 50 mg tablet TOME TEDDY TABLETA POR V A ORAL EVERY 6 HOURS NEEDED FOR SEVERE PAIN (SCALE SCORE 7-10) active Not Available Not Available No t Available triamcinolone acetonide 0.1 % topical cream APLIQUE AL DANE AFECTADA TOPICALLY ONCE DAILY active Not Available Not Available N ot Available diltiazem CD 120 mg capsule,exten ded release 24 hr TOME 1 C PSULA POR V A ORAL TODOS LOS D active Not Available Not Available No t Available Vitals None Recorded Social History None recorded. Functional Status None recorded. Mental Status None recorded. Family History Nothing Reported. Medical History No medical history recorded. Gynecological HistoryNo gynecological history recorded. Obstetrics History GPAL:G 0 P 0 0 0 0 Past Encounters Encounter ID Performer Location Encounter Start Date Encounter Closed Date Diagnosis/Indication Diagnosis SNOMED-CT Code Diagnosis ICD10 Code Diagnosis Note [id number] Tal Landa MD Main - [address] [phone] 10/30/2024 12:31:59 10/30/2024 18:20:48 Health Concerns Section Related Observation LastModified by Organization Milind ls LastModified Time None Recorded Concern Status LastModified by Organization Details LastModified Time None Recorded Payers Encounter Date Sequence Insurance Name Policy Number Policy Green Covered Member ID Green Member ID Guarantor Name 10/30/2024 1 [facility] - DOS ON OR AFTER 2022 - DUAL ELIGIBLE - [facility] OPTIONS AND ONE CARE (MEDICARE REPLACEMENT/ADV ANTAGE - HMO) Alee Amato [id number] Alee Amato Notes Date Note Type Note Provider Name and Address Organization Details Recorded Time 10/30/2024 text/html HPI: RN calling for pt. Her HR 120-140 She has a new diagnosis of AFIB. She missed her meds this am She just took her meds 30 min ago. She is asymptomatic.She is refusing the ER. She was explained that she should present to the ER as we are unable to break AFIB if she is in it and it is a risk to delay care. She is not showing any signs of infection and risk of dehydration. PT is refusing the ER . Pt denies any SOB and chest pain. Dizziness resolved with food. She is on eliquis , metoprolol Allergies to a PO diabetic med but unsure which one .................. .................. .................. .................. .................. .................. .................. ............... CRC Nurse Triage Notes (Bhavna Porter): Reason For Request: Patient has Afib - fast heart rate - 110-120 then up to 140. Chief Complaints: Heart Rate Problems PMH: Arrhythmias (e.g., Atrial Fibrillation), Hyperlipidemia, Diabetes Mellitus Type 2, Asthma, Hypertension PMH Reviewed at 10/30/2024 - 10:48 Allergies Reviewed at 10/30/2024 - 10:48 .................. .................. .................. .................. .................. .................. .................. ............... Wood Mill Supervisor Note From Azam Granados: No answer on phone or door .................. .................. .................. .................. .................. .................. .................. ............... Disposition: Unfulfilled Tal Landa MD [address] [facility], [place], [address], [employer] FLORES 10/30/2024 18:20:46 OBGyn Episode No OBEpisode recorded.
--- OUTSIDE RECORDS SUMMARY | 2024-10-31 11:17 | XMS_ITS | Encounter Summary ---
Author Organization [employer] Address [address] [place] [address] 7[address] [place] [address] Care Team Providers Care Trust Accounts Supervisor Name Role Phone Unavailable Primary Care Provider Unavailabl e Reason for Visit * Reason Comments Med Refill Encounter Details Date Type Department Care Team ([facility] st Contact Info) Description 11/06/2023 Refill [facility] CHC MED & PEDS [address] [place] [address] Ganesh Alvarado MD [address] [place] [address] Social History Tobacco Use Types Packs/Day Years [...]
--- OUTSIDE RECORDS SUMMARY | 2024-10-31 11:17 | XMS_ITS | Data Portability ---
Author Organization [employer] [facility], [place] in - [facility] Address [address] [place] [phone] Care Team Providers Care Dye Range Operator Name Role Phone HIM CCA OTHER Assessment [...] SNOMED-CT Code Diagnosis ICD10 Code Diagnosis Note [id number] Tal Landa MD Main - [address] [address] 10/30/2024 12:31:59 10/30/2024 18:20:48 Health Concerns Section Related Observation LastModified by Organization Detai ls LastModified Time None Recorded Concern Status LastModified by Organization Details LastModified Time None Recorded Advance Directives Directive None Recorded Payers Encounter Date Sequence Insurance Name Policy Number Policy Green Covered Member ID Green Member ID Guarantor Name 10/30/2024 1 [facility] - DOS ON OR AFTER 2022 - DUAL ELIGIBLE - [facility] OPTIONS AND ONE CARE (MEDICARE REPLACEMENT/ADV ANTAGE - HMO) Alee Amato [id number] Alee Amato Notes Date Note Type Note [...] Type 2, Asthma, Hypertension PMH Reviewed at 10/30/2024:48 Allergies Reviewed at 10/30/2024 - 10:48 .................. .................. .................. .................. .................. .................. .................. ............... Network Cable Installer Note From Azam Granados: No answer on phone or door .................. .................. .................. .................. .................. .................. .................. ............... Disposition: Unfulfilled Tal Landa MD [address] [facility],[address], [place], [address], [employer] Temple[employer]I FLORES 10/30/2024 18:20:46 OBGyn Episode No OBEpisode recorded.
--- OUTSIDE RECORDS SUMMARY | 2024-10-31 11:17 | XMS_ITS | Encounter Summary ---
Author Organization [employer] Address [address] [place] [address] 7t [place] [address] Care Team Providers Care Novelty Chain Maker Name Role Phone Unavailable Primary Care Provider Unavailabl e Reason for Visit * Reason Comments Med Refill Encounter Details Date Type Department Care Team ([facility] st Contact Info) Description 07/01/2024 Refill [facility] CHC MED & PEDS [address] [place] [address] Ganesh Alvarado MD [address] [place] [address] Social History Tobacco Use Types Packs/Day Years [...]
--- OUTSIDE RECORDS SUMMARY | 2024-10-31 11:17 | XMS_ITS | Encounter Summary ---
Author Organization [employer] Address [address] [place] [address] 7t [place] [address] Care Team Providers Care Mobile Paramedical Examiner Name Role Phone Unavailable Primary Care Provider Unavailabl e Reason for Visit * Reason Comments Med Refill Encounter Details Date Type Department Care Team ([facility] st Contact Info) Description 06/04/2024 Refill [facility] CHC MED & PEDS [address] [place] [address] Ganesh Alvarado MD 505 [place] [address] Social History Tobacco Use Types Packs/Day Years [...]
--- OUTSIDE RECORDS SUMMARY | 2024-10-31 11:17 | XMS_ITS | Encounter Summary ---
Author Organization [employer] Address [address] [place] [address] 7 [place] [address] Care Team Providers Care Electronic Tech Name Role Phone Ganesh Alvarado MD Primary Care Provider [phone] Reason for Visit * Reason Comments Med Refill Encounter Details Date Type Department Care Team (Late st Contact Info) Description 08/06/2023 Refill [facility] MEDICINE [address] [place] [address] Ganesh Alvarado MD [address] [place], [place] [id number] Social History Tobacco Use Types Packs/Day Years [...] on filedocumented in this encounter Care Teams Electronic Tech Relationship Specialty Start Date End Date Ganesh Alvarado MD [address] [place] [address] PCP - General Internal Medicine 12/21/17 09/05/23 documented as of this encounter
--- OUTSIDE RECORDS SUMMARY | 2024-10-31 11:17 | XMS_ITS | Clinical Summary ---
Author Organization [employer] Address [address] [place] [address] 7t [place] [address] Care Team Providers Care Heat Treater Apprentice Name Role Phone Unavailable Primary Care Provider [...] complication, with long-term current use of insulin ([facility]) INJETAR 20 UNIDADES SUBCUTANEAS TEDDY VEZ AMANDA. 15 mL 11 06/08/20 23 Active lisinopril 10 MG tablet TAKE 1 TABLET BY MOUTH DAILY 28 tablet 3 06/28/20 23 Active Encounters Date Type Department Care Team Description 10/08/2024 Refill [facility] CHC MED & PEDS [address] [place] [address] Ganesh Alvarado MD 09/24/2024 Refill [facility] MED & PEDS [address] [place] [address] Ganesh Alvarado MD 08/26/2024 Refill [facility] MED & PEDS [address] [place] [address] Ganesh Alvarado MD from Last 3 Months [...] liver disease. LDL Cholesterol Calculated 127 mg/dl [facility] Comment: Desirable LDL: ? less [...] Amino Transferase 14 5 - 31 U/L [facility] Bilirubin Total 0.3 0.0 - [...] >60 [facility] Comment: NOTE: ??For -Burkinan individuals, multiply the result ?by 210. ?? [...] Protein 6.9 6.5 - 8.0 g/dL [facility] Vitamin D 25-OH Total 50.3 >30 ng/mL [facility] Comment: Health Based Reference Values* [...] Thyroxine) 1.32 0.71 - 1.85 ng/dL [facility] 05/25/2020 10:1 0 AM EST us Historical Provider HISTORICAL/NON ORDERABLE LABS Final Result [facility] [address] * Mammography Report 1 (05/04/2020 9:06 [...] Recently Relevant to Health Maintenance Insurance [place] [phone] * Guarantor: Alee Amato Account Type Relation to Patient Date of Phone Billing Address Personal/Family Self [place] [address] [address]
--- OUTSIDE RECORDS SUMMARY | 2024-10-31 11:17 | XMS_ITS | Encounter Summary ---
Author Organization [employer] Address [address] [place] [address] [address]t [place] [address] Care Team Providers Care Traveling Buyer Name Role Phone Unavailable Primary Care Provider Unavailabl e Reason for Visit * Reason Comments Med Refill Encounter Details Date Type Department Care Team ([facility] st Contact Info) Description 08/26/2024 Refill [facility] CHC MED & PEDS [address] [place] [address] Ganesh Alvarado MD [address] [place] [address] Social History Tobacco Use Types Packs/Day Years [...]
--- OUTSIDE RECORDS SUMMARY | 2024-10-31 11:17 | XMS_ITS | Encounter Summary ---
Author Organization [employer] Address [address] [place] [address] 7t [place] [address] Care Team Providers Care Rn Post Partum Name Role Phone Unavailable Primary Care Provider Unavailabl e Reason for Visit * Reason Comments Med Refill Encounter Details Date Type Department Care Team ([facility] st Contact Info) Description 05/06/2024 Refill [facility] CHC MED & PEDS [address] [place] [address] Ganesh Alvarado MD [address] [place] [address] Social History Tobacco Use Types Packs/Day Years [...]
--- OUTSIDE RECORDS SUMMARY | 2024-10-31 11:17 | XMS_ITS | Encounter Summary ---
Author Organization [employer] Address [address] [place] [address] [address]t [place] [address] Care Team Providers Care Open Winder Name Role Phone Unavailable Primary Care Provider Unavailabl e Reason for Visit * Reason Comments Med Refill Encounter Details Date Type Department Care Team ([facility] st Contact Info) Description 04/09/2024 Refill [facility] CHC MED & PEDS [address] [place] [address] Ganesh Alvarado MD [address] [place] [address] Social History Tobacco Use Types Packs/Day Years [...]
--- OUTSIDE RECORDS SUMMARY | 2024-10-31 11:17 | XMS_ITS | Encounter Summary ---
Author Organization [employer] Address [address] [place] [address] [address] [place] [address] Care Team Providers Care Supervisor Hard Candy Name Role Phone Unavailable Primary Care Provider Unavailabl e Reason for Visit * Reason Comments Med Refill Encounter Details Date Type Department Care Team ([facility] st Contact Info) Description 04/10/2024 Refill [facility] CHC MED & PEDS [address] [place] [address] Ganesh Alvarado MD [address] [place] [address] Social History Tobacco Use Types Packs/Day Years [...]
--- OUTSIDE RECORDS SUMMARY | 2024-10-31 11:17 | XMS_ITS | Encounter Summary ---
Author Organization [employer] Address [address] [place] [address] 7t [place] [address] Care Team Providers Care Intelligence Agent Name Role Phone Unavailable Primary Care Provider Unavailabl e Reason for Visit * Reason Comments Med Refill Encounter Details Date Type Department Care Team ([facility] st Contact Info) Description 01/17/2024 Refill [facility] CHC MED & PEDS [address] [place] [address] Ganesh Alvarado MD [address] [place] [address] Social History Tobacco Use Types Packs/Day Years [...]
--- OUTSIDE RECORDS SUMMARY | 2024-10-31 11:17 | XMS_ITS | Encounter Summary ---
Author Organization [employer] Address [address] [place] [address] 7 [place] [address] Care Team Providers Care Bar Manager Name Role Phone Ganesh Alvarado MD Primary Care Provider [phone] Encounter Details Date Type Department Care Team ([facility] st Contact Info) Description 11/24/2022 Abstract [facility] CHC MED & PEDS [address] [place] [address] Ganesh Alvarado MD [address] [place] [address] Social History Tobacco Use Types Packs/Day Years [...] on filedocumented in this encounter Care Teams Bar Manager Relationship Specialty Start Date End Date Ganesh Alvarado MD [address] [place] [address] PCP - General Internal Medicine 12/21/17 09/05/23 documented as of this encounter
== END 2024-10-31 11:09 | disposition home or self-care (01) ==
LOC: HO.ENCR 10:16
PROVIDERS: PCP Internal Medicine; Visit Provider Physician Assistant Medical
DX: E11.65 Type 2 diabetes mellitus with hyperglycemia (principal)

== ENCOUNTER → 2024-10-31 10:15 | Outpatient (BNVA) | payer OTHER, SELFPAY | PROVIDERS: PCP Internal Medicine; Visit Provider Physician Assistant Medical | DX: E11.65 Type 2 diabetes mellitus with hyperglycemia (principal); I10 Essential (primary) hypertension; E21.3 Hyperparathyroidism, unspecified; Z85.850 Personal history of malignant neoplasm of thyroid | CPT/HCPCS: 82947; 99212 ==

== ENCOUNTER 2024-11-28 10:03 | Outpatient (AMB) | payer OTHER, SELFPAY ==
--- NOTE | 2024-11-28 10:09 | A.OFFVIS_ITS ---
Vital Signs 11/28/24 10:14 Height 5 ft 1 in Weight 173 lb 4.533 oz BMI 32.7 BP 114/64 Blood Pressure Location Rt brachial Position Sitting Pulse 56 Pulse Source Pulse Oximeter Pulse Oximetry (%) 95 Oxygen Delivery Method Room Air Intake Visit Reasons: Type II diabetes Intake Note: Patient present today to follow up on Type 2 Diabetes Mellitus. Patient receives Dexcom G7 supplies through: [employer] Last Diabetic Eye exam: Due, Has an appointment in November 2024 Last Podiatry Visit: Does not see a Sales Engagement Executive Random Glucose: 161 mg/dl HgA1C: 9.0% 10/02/2024 Criminal Justice Teacher Required: Yes Criminal Justice Teacher Language: Esthetician/Skin Therapist Services: Criminal Justice Teacher Present Criminal Justice Teacher Name: Carola [id number] Information Interpreted: non-clinical & clinical Accompanied by: Self / Same As Patient Allergies empagliflozin [From JARDIANCE] Allergy (Intermediate, Verified 11/28/24 10:15) ITCHY/RASH JARDIANCE Allergy (Intermediate, Uncoded 11/28/24 10:15) pruritus HPI Comments Details: 69-year-old female with a past medical history of atrial fibrillation, cardiomyopathy, type 2 diabetes, anemia, hypertension, hyperparathyroidism and thyroid cancer presents for follow up. Bengali video cathead worker: Carola [phone] She is followed by Dr. Guo for thyroid cancer who she saw this morning. Her hemoglobin A1c increased to 9% on 10/02/2024. It was 8% 07/14/2024. Reviewed glucometer download Average glucose 147 In range 78% High 275 Low 79 CGM sensors received. She didn't get a reader. She can't get into the Dexcom sydni. Tried calling [employer] once to reset her password, but she was on a hold too long. She will try again. Current regimen: Tresiba 14 units in the morning, Trulicity 3 mg weekly, Humalog 5 units before breakfast and 8 units before lunch and 5 units before d inner Compliance issues: She was only taking Trulicity 4.5 mg every other week because it decreased her appetite too much. She is taking it every week now at the lower dose. Past medications: Metformin discontinued due to diarrhea and lactic acidosis. Jardiance and Farxiga discontinued due to yeast infection. Complications: Neuropathy. She is treated with rosuvastatin for hyperlipidemia. ROS: Constitutional: No unexplained weight loss, fevers or chills Eyes: No vision changes, blurry vision, double vision Respiratory: No shortness of breath Cardiovascular: No chest pain, palpitations or pedal edema Gastrointestinal: No anorexia, nausea, vomiting or diarrhea. No abdominal pain Genitourinary: No dysuria, hematuria, urinary frequency. Neurologic: No headache, dizziness, syncope or weakness. Endocrine: No polyuria or polydipsia. Physical exam: Constitutional: Alert, in no distress. Neck: Supple, Full range of motion. No lymphadenopathy. Respiratory: Clear to auscultation. Cardiovascular: S1 S2 regular. No murmurs. Neurologic: No focal neurological deficits Extremities: Warm and well perfused. No clubbing, cyanosis or edema. 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 Mother Arthritis Social History Household Members: Spouse and Children Housing: Apartment Do you presently have visiting nurse or other home services: Yes (Daughter is DENIAL MANAGEMENT REPRESENTATIVE) Alcohol intake: never Patient Tobacco Use Status: Never used Tobacco e-Cigarette/Vaping Use: Never Used Second Hand Smoke Exposure: No service: No Current occupational status: disabled Cognitive needs: No Hearing needs: No Vision needs: No Physical Exam Vital Signs: Last Vital Signs Pulse 56 11/28/24 10:14 BP 114/64 11/28/24 10:14 Pulse Ox 95 11/28/24 10:14 Oxygen Delivery Method Room Air 11/28/24 10:14 BMI result Body Mass Index 32.7 Results Reviewed Results Reviewed: Laboratory Last Values Glucose (Clinic) 161 mg/dL (60-115) H 11/28/24 10:20 Laboratory Tests 11/07/23 11/07/23 02/22/24 09:41 11:47 09:23 Plt Count Creatinine Estimated GFR Hgb A1c (Clinic) 9.1 H 8.7 H Hemoglobin A1c % AST ALT Alkaline Phosphatase Urine Creatinine 248.12 Urine Microalbumin 12.0 Microalb/Creat Ratio 4.8 05/27/24 07/14/24 10/02/24 09:25 09:16 05:37 Plt Count Creatinine Estimated GFR Hgb A1c (Clinic) 8.5 H 8.0 H Hemoglobin A1c % 9.0 H AST ALT Alkaline Phosphatase Urine Creatinine Urine Microalbumin Microalb/Creat Ratio 10/11/24 20:54 Plt Count 308 Creatinine 1.24 Estimated GFR 43 Hgb A1c (Clinic) Hemoglobin A1c % AST 19 ALT 20 Alkaline Phosphatase 112 Urine Creatinine Urine Microalbumin Microalb/Creat Ratio Assessment & Plan Assessment & Plan (1) Diabetes type 2, uncontrolled: Code(s): E11.65 - Type 2 diabetes mellitus with hyperglycemia Category: Medical Qualifiers: Glycemic state: with hyperglycemia Qualified Code(s): E11.65 - Type 2 diabetes mellitus with hyperglycemia Plan: 69-year-old female with uncontrolled type 2 diabetes. Sent Dexcom uppers edge burnisher to pharmacy. Continue to use fingerstick glucometer until she has this. Continue Tresiba 14 units every morning Continue Humalog 5 units before breakfast, 8 units before lunch and 5 units before dinner Continue Trulicity to 3 mg weekly. Reviewed diabetic diet. Declines referral to dietitian. If you experience low blood sugar, treat this by eating a chewable fruit candy like skittles or jelly beans (about 8 pieces), 4 ounces (1/2 cup) of fruit juice (not diet), 1 tablespoon of honey or 4 glucose tablets. If your blood sugar is under 55, take double the amount of one of the above. Recheck your blood sugar in 15 minutes. Follow up in 1 month for type 2 diabetes to review sensor data. Medications: New glucose (Dex4 Glucose) until blood sugar is >70 (hasta que el nivel de azucar en yosef sea superior a 70) 16 grams (4 x 4 gram) PO Q15M PRN 10 tabs 3RF hypoglycemia (hipoglucemia) Refilled blood-glucose,uppers edge burnisher,cont (Dexcom G7 Varnish Mixer) As directed 1 ea 0RF Patient Instructions: Current medication regimen: Tresiba 14 units in the morning, Trulicity 3 mg weekly, Humalog 5 units before breakfast and 8 units before lunch and 5 units before dinner If you experience low blood sugar, treat this by eating a chewable fruit candy like skittles or jelly beans (about 8 pieces), 4 ounces (1/2 cup) of fruit juice (not diet), 1 tablespoon of honey or 4 glucose tablets. If your blood sugar is under 55, take double the amount of one of the above. Recheck your blood sugar in 15 minutes. R?gimen de medicaci?n actual: Tresiba 14 unidades por la ma?krish, Trulicity 3 mg semanalmente, Humalog 5 unidades antes del desayuno, 8 unidades antes del almuerzo y 5 unidades antes de la anthony. Si experimenta hipoglucemia, tr?ally consumiendo un caramelo masticable de fruta lolis Skittles o Jelly Beans (aproximadamente 8 piezas), 113 ml (1/2 taza) de jugo de fruta (no light), 1 cucharada de miel o 4 tabletas de glucosa. Si simental nivel de az?car en yosef es inferior a 55, tome el doble de la dosis de chace de los medicamentos mencionados. Vuelva a medir simental nivel de az?car en yosef en 15 minutos. Coding Level of Care Code Est Pt Level 4 (60721) Complex EM visit Add On G2211 Diagnoses Uncontrolled type 2 diabetes mellitus with hyperglycemia E11.65 Glycemic state: with hyperglycemia
[2024-11-28 10:14] VITALS: BP 114/64; PULSE 56; O2SAT 95; BMI 32.7
[2024-11-28 10:23] LABS: Glucose, Whole Blood 161 mg/dL (60-115)
--- OUTSIDE RECORDS SUMMARY | 2024-11-28 10:37 | XMS_ITS | Encounter Summary ---
Author Organization [employer] Address [address] [place] [address] 7 [place] [address] Care Team Providers Care Shearing Machine Tender Name Role Phone Unavailable Primary Care Provider Unavailabl e Reason for Visit * Reason Comments Med Refill Encounter Details Date Type Department Care Team ([facility] st Contact Info) Description 07/29/2024 Refill [facility] CHC MED & PEDS [address] [place] [address] Ganesh Alvarado MD [address] [place] [address] Social History Tobacco Use Types Packs/Day Years [...]
== END 2024-11-28 10:52 | disposition home or self-care (01) ==
LOC: HO.ENCR 10:04
PROVIDERS: PCP Internal Medicine; Visit Provider Physician Assistant Medical
DX: E11.65 Type 2 diabetes mellitus with hyperglycemia (principal)

== ENCOUNTER → 2024-11-28 10:03 | Outpatient (BNVA) | payer OTHER, SELFPAY | PROVIDERS: PCP Internal Medicine; Visit Provider Physician Assistant Medical | DX: E11.65 Type 2 diabetes mellitus with hyperglycemia (principal); Z79.4 Long term (current) use of insulin; Z79.85 Long-term (current) use of injectable non-insulin antidiabetic drugs | CPT/HCPCS: 82947; 99212 ==

== ENCOUNTER 2024-12-04 09:41 | Outpatient (AMB) | payer OTHER, SELFPAY ==
[2024-12-04 09:57] VITALS: BP 138/62; BMI 32.3
--- NOTE | 2024-12-04 09:57 | MHC.PC.OV ---
Vital Signs 12/04/24 09:57 Height 5 ft 1 in Weight 171 lb BMI 32.3 BP 138/62 Blood Pressure Location Lt brachial Position Sitting Intake Visit Reasons: DM Intake Note: Patient here for a follow up DM Computer Programming Manager Required: No Accompanied by: Self / Same As Patient Allergies empagliflozin [From JARDIANCE] Allergy (Intermediate, Verified 12/04/24 10:01) ITCHY/RASH JARDIANCE Allergy (Intermediate, Uncoded 11/28/24 10:15) pruritus Medication List - Last Reconciled 12/04/24 by Jo Montiel MD [air conditioner As directed] apixaban (Eliquis) 5 mg PO BID [balance As directed] blood pressure test kit-large As directed blood sugar diagnostic ([employer]ec[employer] Ultra Test strips) USE TO TEST BLOOD SUGAR FOUR TIMES PER DAY blood-glucose meter ([employer] Ultra2 Meter) As directed test 4 times a day blood-glucose,digital media coordinator,cont (Dexcom G7 Fell Cutter) As directed cholecalciferol (vitamin D3) (Vitamin D3) 50 mcg PO DAILY Dexcom G7 Sensor (blood-glucose sensor) As directed change every 10 days NS diltiazem HCl CD (Cardizem CD) 120 mg See Protocol PO DAILY dulaglutide (Trulicity) 3 mg (0.5 mL) subcut QWEEK glucose (Dex4 Glucose) 16 grams (4 x 4 gram) PO Q15M PRN Grab bar As directed incontinence pad, liner, disp Use 1 pad every 6 hours as needed insulin degludec (Tresiba FlexTouch U-100 insulin) 14 units subcut DAILY insulin lispro (Humalog KwikPen (U-100) Insulin) subcutaneously 3 times a day; 5 units before breakfast 8 units before lunch and 5 units beofre dinner subcutaneously 3 times a day; lancets (Super Ele[employer]ecuch Delica Plus Lancet) USE TO TEST BLOOD SUGAR FOUR TIMES DAILY lancets (FreeStyle Lancets) As directed test 4X a day levothyroxine 137 mcg PO DAILY@0600 metoprolol succinate ER 50 mg See Protocol PO DAILY nebulizers As directed rosuvastatin 40 mg PO DAILY 90 days tramadol 50 mg PO Q6H PRN triamcinolone acetonide 0.1% 1 appl topical DAILY Ventolin HFA 90 mcg/actuation (albuterol sulfate) 2 puffs inhalation Q6H PRN 30 days NS [wipes flushable As directed] Tobacco use date assessed: 10/17/24 Fall risk assessment: No Falls in past year Last assessed Fall Risk: 12/04/24 Dental Screening Dental Screen Date: 12/04/24 Did you have a dental visit in the last 12 months?: No Did you have a dental problem in the last 6 months where you did not have access to dental care?: No Was dental information given to patient?: Patient has dentist HPI HPI Comments History of Present Illness Details The patient is a 69-year-old female presenting with a follow-up for her management of diabetes, atrial fibrillation, and anemia. Her hemoglobin A1c was last noted to be 9% and management involves long-standing insulin therapy alongside medications such as Trulicity, Tresiba, and Humalog. She experiences occasional hypoglycemia at night. Also has history of thyroid cancer follow by Endocrinology. Cardiomyopathy is follow by cardiology. Her health history includes atrial fibrillation managed with diltiazem and metoprolol, with appropriate anticoagulation through Eloquis. She also presents with anemia, currently monitored through lab work, with no evidence of active bleeding reported. Past medical interventions revealed a spleen infarct, with records of pericardial effusion and previous trauma. Specialists' follow-ups in cardiology and gastroenterology have been arranged to address these issues. [facility] Medical History (Updated 12/04/24 @ 11:42 by Jo Montiel MD) Atrial fibrillation Hypothyroidism Asthma Pericardial effusion Pneumonitis Pleural effusion Hypoglycemia unawareness associated with type 2 diabetes mellitus Post-surgical hypothyroidism shelter (current) use of insulin Postsurgical hypothyroidism Thyroid cancer Dyslipidemia Essential hypertension Hyperparathyroidism Vitamin D deficiency Obesity (BMI 30-39.9) Diabetes type 2, uncontrolled Surgical History Hx of colonoscopy Hx of total thyroidectomy Hx of hysterectomy Family History Father No problems noted. Mother Arthritis Social History Household Members: Spouse and Children Housing: Apartment Do you presently have visiting nurse or other home services: Yes (Daughter is FREIGHT CAR REPAIRER) Alcohol intake: never Patient Tobacco Use Status: Never used Tobacco e-Cigarette/Vaping Use: Never Used Second Hand Smoke Exposure: No service: No Current occupational status: disabled Cognitive needs: No Hearing needs: No Vision needs: No Questionnaire Thrive Questionnaire Date Thrive assessed: 07/14/24 I am a: Patient What is your living situation today?: I have a steady place to live Within the past 12 months, did the food you bought not last and you didn't have the money to get more?: I choose not to answer this question Within the past 12 months, did you worry whether your food would run out before you got money to buy more?: I choose not to answer this question Do you have trouble paying for medicines?: I choose not to answer this question Do you have trouble getting transportation to medical appointments?: I choose not to answer this question Do you have trouble paying your heating and electricity bill?: I choose not to answer this question Do you have trouble taking care of your child, family member or friend?: I choose not to answer this question Do you have trouble with day-to-day activities such as bathing, preparing meals, shopping, managing finances, etc.?: I choose not to answer this question Are you currently unemployed and looking for a job?: I choose not to answer this question Are you interested in more education?: I choose not to answer this question Please select the resources that you would like help with: None Currently or been in a relationship where the following occur: I choose not to answer THRIVE Score: 0 DIVINA-7 AMB Questionnaire DIVINA-7 Date DIVINA - 7 assessed: 07/14/24 Source: Developed by Drs. Kofi Arrington, Tracy Rowe, Al Kulkarni and colleagues, with an educational bobby from [employer] Review of Systems Const All systems reviewed & are unremarkable except as noted in HPI and below Card Denies chest pain at rest, Denies chest pain with activity, Denies edema, Denies irregular heart rhythm, Denies claudication, Denies dyspnea, Denies dyspnea on exertion, Denies orthopnea, Denies paroxysmal nocturnal dyspnea and Denies slow heart rate Resp Denies cough, Denies dyspnea and Denies dyspnea on exertion GI Denies abdominal pain, Denies change in bowel habits, Denies excessive flatus, Denies nausea and Denies vomiting Denies urinary incontinence, Denies urinary hesitancy and Denies urinary urgency Physical exam (Primary Care) Vital Signs: Last Vital Signs BP 138/62 12/04/24 09:57 BMI result Body Mass Index 32.3 Tobacco/Smoking Status: Tobacco use Status Tobacco use date assessed 10/17/24 12/04/24 10:02 Patient Tobacco Use Status Never used Tobacco 12/04/24 10:02 e-Cigarette/Vaping Use Never Used 12/04/24 10:02 Thrive Assessment: Date of Thrive Assessment Date Thrive assessed 07/14/24 12/04/24 10:02 Currently or been in a relationship where the following occur: I choose not to answer Resp Effort & Inspection: normal respiratory effort Auscultation: clear to auscultation bilaterally Cardio Jugular venous distension: no JVD Rate: regular rate Rhythm: regular rhythm Heart sounds: S1 normal heart sound present and S2 normal heart sound present Extrem General: Yes full ROM Coding Level of Care Code Est Pt Level 4 (84428) Complex EM visit Add On G2211 Diagnoses Diabetes mellitus, with long-term current use of insulin E11.9; Z79.4 Atrial fibrillation with RVR I48.91 Cardiomyopathy I42.9 Essential hypertension I10 Dyslipidemia E78.5 Thyroid cancer C73 Time Spent (min) 22 Assessment & Plan Assessment & Plan (1) Diabetes mellitus, with long-term current use of insulin: Code(s): E11.9 - Type 2 diabetes mellitus without complications; Z79.4 - shelter (current) use of insulin Category: Medical (2) Atrial fibrillation with RVR: Code(s): I48.91 - Unspecified atrial fibrillation Category: Medical (3) Cardiomyopathy: Code(s): I42.9 - Cardiomyopathy, unspecified Category: Medical (4) Essential hypertension: Code(s): I10 - Essential (primary) hypertension Category: Medical (5) Dyslipidemia: Code(s): E78.5 - Hyperlipidemia, unspecified Category: Medical (6) Thyroid cancer: Code(s): C73 - Malignant neoplasm of thyroid gland Category: Medical Plan The patient will sustain her diabetic regimen, emphasizing the reduction of hypoglycemia risk, and targeting an A1c of less than 7%. Atrial fibrillation control is maintained with her current medication regime, ensuring she adheres to her Eloquis for anticoagulation. Anemia follow-up involves routine lab work to revisit hemoglobin levels, with a view toward managing any potential iron deficiency. Cardiological and gastroenterological evaluations are scheduled to further address the splenic infarct and pericardial changes. Patient was informed and verbally consented to the use of an ambient scribe for clinic note documentation during this visit. I discussed with the patient the importance of maintaining her current therapeutic regimen for diabetes and atrial fibrillation, the associated risks, and contingencies for adjustments. The potential need for additional interventions based on prospective laboratory data was clarified, particularly concerning anemia and her anticoagulation therapy. We reviewed the findings regarding her spleen and potential subsequent specialist evaluations and emphasized the necessity of consistent monitoring and reviews. I elaborated on the reasonable limitations for tramadol use due to its opioid nature and the outcomes of its usage on pain management. Orders: Orders Microalbumin, Random (w Creat) 4 Months R80.9 - Proteinuria, unspecified Complete Blood Count Auto Diff 4 Months D64.9 - Anemia, unspecified IRON PROFILE 4 Months D64.9 - Anemia, unspecified Lipid Panel 4 Months E78.5 - Hyperlipidemia, unspecified Comprehensive Devine. Panel Fast 4 Months I42.9 - Cardiomyopathy, unspecified NT-proBNP 4 Months I42.9 - Cardiomyopathy, unspecified Medications: Refilled tramadol 50 mg PO Q6H PRN 12 tabs 0RF severe pain (scale score 7-10) Patient Instructions: - Continue taking all prescribed medications as directed. - Monitor blood sugar levels regularly and report any notable changes or hypoglycemic episodes. - Adhere to scheduled lab testing for anemia in four months. - Avoid smoking and alcohol consumption. - Use tramadol sparingly for leg pain, not exceeding two to three times per month. - Attend scheduled follow-ups with specialists for further evaluations. - Seek care if new symptoms arise, such as unusual bruising, bleeding, or acute pain.
--- OUTSIDE RECORDS SUMMARY | 2024-12-04 10:53 | XMS_ITS | Encounter Summary ---
Author Organization [employer] Address [address] [place] [address] [address] [place] [address] Care Team Providers Care Developer Programmer Analyst Name Role Phone Unavailable Primary Care Provider Unavailabl e Reason for Visit * Reason Comments Med Refill Encounter Details Date Type Department Care Team ([facility] st Contact Info) Description 07/29/2024 Refill [facility] [address] [place] [address] Ganesh Alvarado MD [address] [place] [address] Social History Tobacco Use Types Packs/Day Years [...]
== END 2024-12-04 10:35 | disposition home or self-care (01) ==
LOC: HO.HMCH 09:42
PROVIDERS: PCP Internal Medicine; Visit Provider Internal Medicine
DX: E11.69 Type 2 diabetes mellitus with other specified complication (principal); Z79.4 Long term (current) use of insulin; I48.91 Unspecified atrial fibrillation; I42.9 Cardiomyopathy, unspecified; C73 Malignant neoplasm of thyroid gland; I10 Essential (primary) hypertension; E78.5 Hyperlipidemia, unspecified

== ENCOUNTER → 2024-12-04 09:41 | Outpatient (BNVA) | payer OTHER, SELFPAY | PROVIDERS: PCP Internal Medicine; Visit Provider Internal Medicine | DX: E11.9 Type 2 diabetes mellitus without complications (principal); I48.91 Unspecified atrial fibrillation; D64.9 Anemia, unspecified; I42.9 Cardiomyopathy, unspecified; I10 Essential (primary) hypertension; E78.5 Hyperlipidemia, unspecified; C73 Malignant neoplasm of thyroid gland; R80.9 Proteinuria, unspecified; Z79.4 Long term (current) use of insulin | CPT/HCPCS: 99212 ==

== ENCOUNTER 2024-12-26 10:05 | Outpatient (AMB) | payer OTHER, SELFPAY ==
--- NOTE | 2024-12-26 10:07 | A.OFFVIS_ITS ---
Vital Signs 12/26/24 10:18 Height 5 ft 1 in Weight 173 lb 15.115 oz BMI 32.9 BP 142/80 H Blood Pressure Location Rt brachial Position Sitting Pulse 51 Pulse Source Pulse Oximeter Pulse Oximetry (%) 96 Oxygen Delivery Method Room Air Intake Visit Reasons: Type II diabetes Intake Note: Patient present today to follow up on Type 2 Diabetes Mellitus. Patient receives Dexcom G7 supplies through: [employer] Last Diabetic Eye exam: Due, Has an appointment in November 2024 Last Podiatry Visit: Does not see a Computerized Mill Recorder Random Glucose: 155 mg/dl HgA1C: 8.8% 12/26/2024 Microstrategy Bi Developer Required: Yes Microstrategy Bi Developer Language: Hollow Handle Knife Assembler Services: Microstrategy Bi Developer Present Microstrategy Bi Developer Name: Eugene De [id number] Information Interpreted: non-clinical & clinical Accompanied by: Self / Same As Patient Allergies empagliflozin (From JARDIANCE) Allergy (Intermediate, Verified 12/26/24 10:18) ITCHY/RASH JARDIANCE Allergy (Intermediate, Uncoded 12/26/24 10:18) pruritus HPI Comments Details: 69-year-old female with a past medical history of atrial fibrillation, cardiomyopathy, type 2 diabetes, anemia, hypertension, hyperparathyroidism and thyroid cancer presents for follow up. interpreter and translator Eugene [id number] She is followed by Dr. Guo for thyroid cancer. HgA1C: 8.8% 12/26/2024 down from 9% 10/02/24. She reports the last 2 Dexcom sensors fell off of her arm early, and she does not have the reader, and she could not log into the sydni on her phone. She is using a fingerstick glucometer. Current regimen: Tresiba 14 units in the morning, Trulicity 3 mg weekly, Hu malog 5 units before breakfast and 8 units before lunch and 5 units before dinner Compliance issues: She moved and there was an issue with the fridge, and she doesn't have insulin and Trulicity the last couple days because it was damaged and unusable. She is only taking Trulicity every other week because she is tired of so many injections. She misses doses of Humalog for the same reason. Past medications: Metformin discontinued due to diarrhea and lactic acidosis. Jardiance and Farxiga discontinued due to yeast infection. She has never been on Actos, but she had an echocardiogram this year which showed severe diastolic dysfunction and severely dilated left atrium. Complications: Neuropathy and nephropathy She is treated with rosuvastatin for hyperlipidemia. ROS: Constitutional: No unexplained weight loss, fevers or chills Eyes: No vision changes, blurry vision, double vision Respiratory: No shortness of breath Cardiovascular: No chest pain, palpitations or pedal edema Gastrointestinal: No anorexia, nausea, vomiting or diarrhea. No abdominal pain Genitourinary: No dysuria, hematuria, urinary frequency. Neurologic: No headache, dizziness, syncope or weakness. Endocrine: No polyuria or polydipsia. Physical exam: Constitutional: Alert, in no distress. Neck: Supple, Full range of motion. No lymphadenopathy. Respiratory: Clear to auscultation. Cardiovascular: S1 S2 regular. No murmurs. Neurologic: No focal neurological deficits Extremities: Warm and well perfused. No clubbing, cyanosis or edema. Psychiatric: Normal mood and affect [facility] Medical History (Updated 12/04/24 @ 11:42 by Jo Montiel MD) Atrial fibrillation Hypothyroidism Asthma Pericardial effusion Pneumonitis Pleural effusion Hypoglycemia unawareness associated with type 2 diabetes mellitus Post-surgical hypothyroidism watermaster (current) use of insulin Postsurgical hypothyroidism Thyroid cancer Dyslipidemia Essential hypertension Hyperparathyroidism Vitamin D deficiency Obesity (BMI 30-39.9) Diabetes type 2, uncontrolled Surgical History Hx of colonoscopy Hx of total thyroidectomy Hx of hysterectomy Family History Father No problems noted. Mother Arthritis Social History Household Members: Spouse and Children Housing: Apartment Do you presently have visiting nurse or other home services: Yes (Daughter is SURVEYOR GEODETIC) Alcohol intake: never Patient Tobacco Use Status: Never used Tobacco e-Cigarette/Vaping Use: Never Used Second Hand Smoke Exposure: No service: No Current occupational status: disabled Cognitive needs: No Hearing needs: No Vision needs: No Physical Exam Vital Signs: Last Vital Signs Pulse 51 12/26/24 10:18 BP 142/80 H 12/26/24 10:18 Pulse Ox 96 12/26/24 10:18 Oxygen Delivery Method Room Air 12/26/24 10:18 BMI result Body Mass Index 32.9 Results AMB Hemoglobin A1c AMB Hemoglobin A1c 8.8 % Last Edit by LATASHA Womack on 12/26/24 10:36 Results Reviewed Results Reviewed: Laboratory Last Values Glucose (Clinic) 155 mg/dL (60-115) H 12/26/24 10:26 Hgb A1c (Clinic) 8.8 % (4.0-6.0) H 12/26/24 10:35 Laboratory Tests 11/07/23 11/07/23 02/22/24 09:41 11:47 09:23 Plt Count Creatinine Estimated GFR Hgb A1c (Clinic) 9.1 H 8.7 H Hemoglobin A1c % AST ALT Alkaline Phosphatase Urine Creatinine 248.12 Urine Microalbumin 12.0 Microalb/Creat Ratio 4.8 05/27/24 07/14/24 10/02/24 09:25 09:16 05:37 Plt Count Creatinine Estimated GFR Hgb A1c (Clinic) 8.5 H 8.0 H Hemoglobin A1c % 9.0 H AST ALT Alkaline Phosphatase Urine Creatinine Urine Microalbumin Microalb/Creat Ratio 10/11/24 20:54 Plt Count 308 Creatinine 1.24 Estimated GFR 43 Hgb A1c (Clinic) Hemoglobin A1c % AST 19 ALT 20 Alkaline Phosphatase 112 Urine Creatinine Urine Microalbumin Microalb/Creat Ratio Assessment & Plan Assessment & Plan (1) Diabetes type 2, uncontrolled: Code(s): E11.65 - Type 2 diabetes mellitus with hyperglycemia Category: Medical Qualifiers: Glycemic state: with hyperglycemia Qualified Code(s): E11.65 - Type 2 diabetes mellitus with hyperglycemia Plan: 69-year-old female with uncontrolled type 2 diabetes. I advised the patient to call the office immediately even if it is after hours she can speak to the on-call if she is not able to get her medications. We will call the pharmacy today to see if insurance can be overridden Tresiba, Trulicity and Humalog since the medications were damaged and are unusable. She received a new Fridge from the risk officer at the apartment. She is struggling with noncompliance due to the burden of taking so many injections. She isn't interested in switching to Rybelsus from Trulicity. We discussed Cequr patch, and she will meet with DE for further education to see if she wants to proceed with hit. I am also referring her to the school vocational educator to trouble shoot the issues with her continuous glucose monitor. Continue Tresiba 14 units every morning Continue Humalog 5 units before breakfast, 8 units before lunch and 5 units before dinner Continue Trulicity to 3 mg weekly. Reviewed diabetic diet. Declines referral to dietitian. If you experience low blood sugar, treat this by eating a chewable fruit candy like skittles or jelly beans (about 8 pieces), 4 ounces (1/2 cup) of fruit juice (not diet), 1 tablespoon of honey or 4 glucose tablets. If your blood sugar is under 55, take double the amount of one of the above. Recheck your blood sugar in 15 minutes. Follow up in 1 month for type 2 diabetes to review sensor data. Orders: Orders AMB Hemoglobin A1c Today E11.65 - Type 2 diabetes mellitus with hyperglycemia Patient Instructions: Continue Tresiba 14 units every morning Continue Humalog 5 units before breakfast, 8 units before lunch and 5 units before dinner Continue Trulicity to 3 mg weekly. If you experience low blood sugar, treat this by eating a chewable fruit candy like skittles or jelly beans (about 8 pieces), 4 ounces (1/2 cup) of fruit juice (not diet), 1 tablespoon of honey or 4 glucose tablets. If your blood sugar is under 55, take double the amount of one of the above. Recheck your blood sugar in 15 minutes. Contin?e con Tresiba 14 unidades cada ma?jo. Contin?e con Humalog 5 unidades antes del desayuno, 8 unidades antes del almuerzo y 5 unidades antes de la machine hand. Contin?e con Trulicity a 3 mg semanales. Si experimenta niveles bajos de az?car en la yosef, tr?telo con un caramelo masticable de fruta lolis Skittles o Jelly Beans (aproximadamente 8 piezas), 113 ml (1/2 taza) de jugo de fruta (no light), 1 cucharada de miel o 4 tabletas de glucosa. Si simental nivel de az?car en la yosef es inferior a 55, tome el doble de la cantidad de chace de los medicamentos mencionados. Vuelva a medir simental nivel de az?car en la yosef en 15 minutos. Coding Level of Care Code Est Pt Level 4 (99166) Complex EM visit Add On G2211 Diagnoses Uncontrolled type 2 diabetes mellitus with hyperglycemia E11.65 Glycemic state: with hyperglycemia
[2024-12-26 10:18] VITALS: BP 142/80; PULSE 51; O2SAT 96; BMI 32.9
[2024-12-26 10:30] LABS: Glucose, Whole Blood 155 mg/dL (60-115)
--- OUTSIDE RECORDS SUMMARY | 2024-12-26 10:42 | XMS_ITS | Encounter Summary ---
Author Organization [employer] Address [address] [place] [address] [address] [place] [address] Care Team Providers Care Touch Up Painter Name Role Phone Unavailable Primary Care Provider Unavailabl e Reason for Visit * Reason Comments Med Refill Encounter Details Date Type Department Care Team ([facility] st Contact Info) Description 07/29/2024 Refill [facility] MED & PEDS [address] [place] [address] Ganesh Alvarado MD [address] [place] [address] Social History Tobacco Use Types Packs/Day Years [...]
== END 2024-12-26 11:17 | disposition home or self-care (01) ==
LOC: HO.ENCR 10:06
PROVIDERS: PCP Internal Medicine; Visit Provider Physician Assistant Medical
DX: E11.65 Type 2 diabetes mellitus with hyperglycemia (principal)

== ENCOUNTER → 2024-12-26 10:05 | Outpatient (BNVA) | payer OTHER, SELFPAY | PROVIDERS: PCP Internal Medicine; Visit Provider Physician Assistant Medical | DX: E11.65 Type 2 diabetes mellitus with hyperglycemia (principal); E11.649 Type 2 diabetes mellitus with hypoglycemia without coma; I48.91 Unspecified atrial fibrillation; I42.9 Cardiomyopathy, unspecified; I10 Essential (primary) hypertension; Z79.4 Long term (current) use of insulin | CPT/HCPCS: 82947; 83036; 99212 ==

== ENCOUNTER 2025-01-09 11:20 | Emergency (ER) | payer OTHER, SELFPAY ==
--- NOTE | ~2025-01-09 | XR_ITS ---
EXAMINATION: XR HIP, LEFT CLINICAL INFORMATION: pain COMPARISON: November 20, 2013. TECHNIQUE: AP and oblique views of the left hip. AP view pelvis. FINDINGS: No acute cortical disruption or malalignment, left hip. Mild sclerosis along the articular surface of the acetabulum. Mild asymmetric joint space narrowing, both coxofemoral joints. Bony pelvis intact. No lytic or blastic lesions. Degenerative changes in the symphysis pubis. Spondylosis at L4-5 and L5-S1. XR/XR hip LT w PEL1V IMPRESSION: Mild osteoarthrosis without acute fracture or dislocation, left hip. Electronically signed by: Vidal Finch MD 01/09/2025 12:09 PM EDT
--- NOTE | ~2025-01-09 | XR_ITS ---
EXAMINATION: XR KNEE, RIGHT CLINICAL INFORMATION: pain COMPARISON: May 10, 2022. TECHNIQUE: AP oblique and lateral views of the right knee. FINDINGS: Joint space narrowing involving mostly the medial compartment. Marginal osteophyte formation and lateral femoral condyle lateral tibial plateau and posterior inferior patella. No acute cortical disruption or malalignment. No lytic or blastic lesions. No suprapatellar bursa joint effusion. No subcutaneous emphysema. XR/XR knee RT 3V IMPRESSION: Tricompartmental osteoarthrosis involving mostly the medial compartment. Electronically signed by: Vidal Finch MD 01/09/2025 12:08 PM EDT
[2025-01-09 11:26] VITALS: BP 138/52; PULSE 60; RESP 16; TEMP 36.1; O2SAT 100; BMI 28.3
--- NOTE | 2025-01-09 11:29 | ED_ITS ---
HPI - General Adult General Chief complaint: Fall Stated complaint: Fall 3 days ago - pain R shoulder, knee pain Time Seen by Provider: 01/09/25 11:31 Source: patient Mode of arrival: ambulatory Limitations: no limitations History of Present Illness ED Provider: marek lofton np HPI narrative: Patient is a 69-year-old female who presents emergency department for evaluation. Eight days ago and 01/01/2025 she had a mechanical trip and fall while attempting to get onto the bus. When she fell she landed onto her right side. Denies any overt head strike, she is anticoagulated on Eliquis, there was no loss of consciousness, she is without headache, dizziness, lightheadedness, vision changes. Complaining of pain to her right knee as well as the list hip ongoing since the fall. Has otherwise been ambulatory. Related Data Home Medications ?Medication ?Instructions ?Recorded ?Confirmed apixaban 5 mg tablet (Eliquis) 5 mg PO BID 10/01/24 insulin degludec 100 unit/mL (3 14 unit subcut DAILY 0 10/14/24 12/04/24 mL) subcutaneous pen (Tresiba FlexTouch U-100 insulin) insulin lispro 100 unit/mL See Rx Instructions subcut TID 10/14/24 12/04/24 subcutaneous pen (Humalog KwikPen (U-100) Insulin) Previous Rx's ?Medication ?Instructions ?Recorded lancets 33 gauge (OneTouch Delica #100 ea 01/22/23 Plus Lancet) blood pressure test kit-large #1 ea 04/23/23 rosuvastatin 40 mg tablet 40 mg PO DAILY 90 days #90 t abs 11/07/23 blood-glucose meter (OneTouch #1 ea 11/19/23 Ultra2 Meter) air conditioner #1 ea 01/13/24 incontinence pad, liner, disp #120 ea 01/13/24 wipes flushable #240 ea 01/13/24 lancets 28 gauge (FreeStyle #100 ea 03/12/24 Lancets) balance #1 ea 04/14/24 cholecalciferol (vitamin D3) 50 50 mcg PO DAILY #28 ca ps 06/23/24 mcg (2,000 unit) capsule (Vitamin D3) blood sugar diagnostic (OneTouch #100 ea 07/01/24 Ultra Test strips) nebulizers #1 ea 01/01/25 Grab bar #1 ea 09/02/24 diltiazem HCl 120 mg 120 mg PO DAILY #90 caps 11/23 capsule,extended release 24 hr (Cardizem CD) metoprolol succinate 50 mg 50 mg PO DAILY #90 tabs 11/23 tablet,extended release 24 hr Dexcom G7 Sensor (blood-glucose #3 ea 10/14/24 sensor) levothyroxine 137 mcg tablet 137 mcg PO DAILY@0600 #30 tabs 10/14/24 triamcinolone acetonide 0.1 % 1 appl topical DAILY #15 grams 10/17/24 topical cream dulaglutide 3 mg/0.5 mL 3 mg (0.5 mL) subcut QWEEK # 2 mL 10/31/24 subcutaneous [facility] ([facility]) Ventolin HFA 90 mcg/actuation 2 puff inhalation Q6H [place] N 11/28/24 aerosol inhaler (albuterol sulfate) shortness of breat h or wheezing 30 days #8 grams blood-glucose,hat blocking operator,cont #1 ea 11/28/24 (Dexcom G7 Cad Designer) glucose 4 gram chewable tablet 16 g (4 x 4 gram) PO Q1 5M PRN 11/28/24 (Dex4 Glucose) hypoglycemia (hipoglucemia) #10 tabs tramadol 50 mg tablet 50 mg PO Q6H PRN severe pain 12/04/24 (scale score 7-10) #12 tabs lidocaine 5 % topical patch 2 patch topical DAILY #30 ea 01/09/25 oxycodone 5 mg tablet 5 mg PO Q6H PRN pain #10 tab s 01/09/25 Allergies Allergy/AdvReac Type Severity Reaction Status Date / Time empagliflozin (From Allergy Intermediate ITCHY/RASH Verified 01/09/25 11:26 JARDIANCE) JARDIANCE Allergy Intermediate pruritus Uncoded 12/26/24 10:18 Review of Systems Review of Systems: Yes all other systems are reviewed and are negative PMFSH Past Medical History Attestation statement: The following information was validated with the patient. 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 Mother Arthritis Social History Social History Household Members: Spouse and Children Housing: Apartment Do you presently have visiting nurse or other home services: Yes (Daughter is MARKER ASSEMBLER) Alcohol intake: never Patient Tobacco Use Status: Never used Tobacco Smoked in Last 30 Days: No e-Cigarette/Vaping Use: Never Used Second Hand Smoke Exposure: No Use of substances other than those prescribed or required for medical reasons: No Do you have a plan to hurt others: No Plan service: No Current occupational status: disabled Cognitive needs: No Hearing needs: No Vision needs: No Physical Exam ED Vital Signs: Vital Signs - 24 hr 01/09/25 11:26 Temperature 96.9 F Pulse Rate 60 Respiratory Rate 16 Blood Pressure 138/52 L Pulse Oximetry 100 Oxygen Delivery Method Room Air BMI result Body Mass Index 28.3 Course Course Course Narrative: DEBBIE, this is a rapid medical exam performed by Fransico Garcia please refer to primary provider for complete H&P- 69 year old female presents for evaluation of right knee pain and left hip pain after a fall 8 days ago. She reports that she tried to get onto a bus and the ramp was not down, she fell onto her right side. She is on Eliquis but denies hitting her head. Will defer head ct at this time as there are no neuro deficits and no headache or signs of trauma. Plan for x- rays Medical Decision Making Medical Decision Making MDM Narrative: Patient is a 69-year-old female past medical history of atrial fibrillation anticoagulated on Eliquis, hypothyroidism, hyperparathyroidism, asthma, diabetes, dyslipidemia, hypertension who presents emergency department for evaluation of traumatic right knee and left hip pain s/p mechanical fall 8 days ago 01/01/2025. She is anticoagulated on Eliquis, denies any overt head strike, there was no loss of consciousness, on examination she has no focal neurological deficits, no reported headache dizziness or vision changes, would defer head CT imaging at this time given duration of time since the injury. Lower suspicion for ICH, SDH. XR imaging of the right knee in the left hip has been obtained to exclude a fracture/dislocation. Both extremities are neurovascularly intact distally. X-ray imaging of the left hip and right knee with findings consistent with osteoarthritis no acute fracture dislocation. Discussed conservative treatment, acetaminophen has not been helpful for analgesia at this time will send prescription for Lidoderm patches in addition to a short course of oxycodone, advised outpatient follow-up with primary care provider potential for physical therapy, and/or orthopedist provider and given strict return precautions. Ambulatory with a slow steady gait. All questions answered. Differential Diagnosis Differential Diagnoses: The differential diagnosis associated with the presentation includes (See narrative above) Independent Interpretation I performed an independent interpretation of an: Plain X-Ray (See narrative above) Radiology Impression Discussion of test interpretation with radiology: I have reviewed the radiolo gist's reading. Radiologist Impression: XR/XR hip LT w PEL1V IMPRESSION: Mild osteoarthrosis without acute fracture or dislocation, left hip. XR/XR knee RT 3V IMPRESSION: Tricompartmental osteoarthrosis involving mostly the medial compartment. External Record Review External record reviewed: Outpatient record Tests considered The following testing was considered but not selected: See narrative above, deferring CT head imaging Prescription Management I considered prescription management with: Pain Medication Chronic Conditions Patient?s care impacted by: Other (See narrative above) Discharge Plan Discharge Clinical Impression: Knee osteoarthritis, Hip osteoarthritis Patient Disposition: Home, Self-Care Instructions: Osteoarthritis (ED) Additional Instructions: X-ray imaging of your right knee and left hip did not show any acute fracture dislocation which is reassuring. You do have findings consistent with osteoarthritis. Anticipate that since your injury/fall this is has resulted in an exacerbation of the inflammation associated with the arthritis resulting in your pain. Unfortunately due to the Eliquis that you are taking you can not take pypn-zgb-[id number] NSAID/anti-inflammatory medicine. You can take Tylenol 500 mg, 2 tablets (1,000mg) every 4-6 hours as needed for pain, but not to exceed 3 doses daily (3,000mg).? I have sent a prescription for Lidoderm patches to your pharmacy to apply to areas of pain leave on for 12 hours and then remove for 12 hour period to prevent any skin irritation. Apply ice/heat for 10-15 minutes 4-6 times daily. If you above measures are not helping the pain I have sent a short prescription for oxycodone pharmacy. This is a narcotic medication. It may make you drowsy. You should not drive, drink alcohol, or work while taking this medication. Contact your primary care doctor's office to arrange for a follow-up appointment. Return to emergency department any new or worsening symptoms or concerns. Prescriptions: New oxycodone 5 mg tablet 5 mg PO Q6H PRN (Reason: pain) Qty: 10 0RF Rx Instructions: Partial Fill upon patient request. lidocaine 5 % adhesive patch,medicated 2 patch topical DAILY Qty: 30 0RF Rx Instructions: leave on most painful area for up to 12 hrs No Action (DME) lancets [OneTouch Delica Plus Lancet] 33 gauge misc See Rx Instructions .ROUTE .COMPLEX Qty: 100 0RF Dose Instruction: USE TO TEST BLOOD SUGAR FOUR TIMES DAILY Rx Instructions: USE TO TEST BLOOD SUGAR FOUR TIMES DAILY (DME) blood pressure test kit-large Kit See Rx Instructions .Route Qty: 1 0RF Rx Instructions: As directed rosuvastatin 40 mg tablet 40 mg PO DAILY 90 Days Qty: 90 2RF (DME) blood-glucose meter [OneTouch Ultra2 Meter] [facility] [place] Rx Instructions .Route Qty: 1 0RF Rx Instructions: As directed test 4 times a day (DME) air conditioner See Rx Instructions .Route .MEDSUPPLY Qty: 1 0RF Rx Instructions: As directed (DME) incontinence pad, liner, disp Pad See Rx Instructions .Route Qty: 120 11RF Rx Instructions: Use 1 pad every 6 hours as needed (DME) wipes flushable See Rx Instructions .Route .MEDSUPPLY Qty: 240 11RF Rx Instructions: As directed (DME) lancets [FreeStyle Lancets] 28 gauge misc See Rx Instructions .Route Qty: 100 4RF Rx Instructions: As directed test 4X a day cholecalciferol (vitamin D3) [Vitamin D3] 50 mcg (2,000 unit) capsule 50 mcg PO DAILY Qty: 28 3RF (DME) OneTouch Ultra Test Strip See Rx Instructions .ROUTE .COMPLEX Qty: 100 4RF Dose Instruction: USE TO TEST BLOOD SUGAR FOUR TIMES PER DAY Rx Instructions: USE TO TEST BLOOD SUGAR FOUR TIMES PER DAY (DME) nebulizers Misc See Rx Instructions .Route Qty: 1 0RF Rx Instructions: As directed (DME) Grab bar Misc See Rx Instructions .Route Qty: 1 0RF Rx Instructions: As directed albuterol sulfate [Ventolin HFA] 90 mcg/actuation HFA aerosol inhaler 2 puff inhalation Q6H PRN (Reason: shortness of breath or wheezing) 30 Days Qty: 8 1RF Eliquis 5 mg tablet 5 mg PO BID metoprolol succinate 50 mg Tablet Extended Release 24 Hr 50 mg PO DAILY Qty: 90 0RF Protocol: Hold for SBP/HR < HOLD for SBP < : 90 HOLD for HR < : 60 diltiazem HCl [Cardizem CD] 120 mg Capsule,Extended Release 24hr 120 mg PO DAILY Qty: 90 0RF Protocol: Hold for SBP/HR < HOLD for SBP < : 90 HOLD for HR < : 60 insulin lispro [Humalog KwikPen Insulin] 100 unit/mL insulin pen See Rx Instructions subcut TID Rx Instructions: subcutaneously 3 times a day; 5 units before breakfast 8 units before lunch and 5 units beofre dinner subcutaneously 3 times a day; insulin degludec [Tresiba FlexTouch U-100] 100 unit/mL (3 mL) insulin pen 14 unit subcut DAILY (DME) balance See Rx Instructions .Route .MEDSUPPLY Qty: 1 0RF Rx Instructions: As directed triamcinolone acetonide 0.1 % cream 1 appl topical DAILY Qty: 15 0RF tramadol 50 mg tablet 50 mg PO Q6H PRN (Reason: severe pain (scale score 7-10)) Qty: 12 0RF levothyroxine 137 mcg tablet 137 mcg PO DAILY@0600 Qty: 30 9RF (DME) Dexcom G7 Sensor Device See Rx Instructions .Route Qty: 3 11RF Rx Instructions: As directed change every 10 days Trulicity 3 mg/0.5 mL pen injector 3 mg subcut QWEEK Qty: 2 3RF (DME) Dexcom G7 Cad Designer Misc See Rx Instructions .Route Qty: 1 0RF Rx Instructions: As directed glucose [Dex4 Glucose] 4 gram tablet,chewable 16 g PO Q15M PRN (Reason: hypoglycemia (hipoglucemia)) Qty: 10 3RF Rx Instructions: until blood sugar is >70 (hasta que el nivel de azucar en yosef sea superior a 70) Referrals: Jo Luna MD [Primary Care Provider, Internal Medicine] Print Language: Egyptian
--- OUTSIDE RECORDS SUMMARY | 2025-01-09 13:40 | XMS_ITS | Data Portability ---
Author Organization Remote [facility], [facility] [employer] [facility] Address [address] [place] [id number] Care Team Providers Care Casting Trucker Name Role Phone HIM CCA OTHER Assessment [...] SNOMED-CT Code Diagnosis ICD10 Code Diagnosis Note [id number] Tal Landa MD [address] [phone] 10/30/2024 12:31:59 10/30/2024 18:20:48 Health Concerns Section Related Observation LastModified by Organization Detai ls LastModified Time None Recorded Concern Status LastModified by Organization Details LastModified Time None Recorded Advance Directives Directive None Recorded Payers Insurance Date Sequence Insurance Name Policy Number Policy Green Covered Member ID Green Member ID Guarantor Name 10/30/2024 1 [facility] - DOS ON OR AFTER 2022 - DUAL ELIGIBLE - HALF-WAY OPTIONS AND ONE CARE (MEDICARE REPLACEMENT/ADV ANTAGE - HMO) Alee Amato [id number] Alee Amato Notes Date Note Type Note [...] .................. .................. .................. .................. .................. .................. ............... Community Relations Advisor Note From Azam Granados: No answer on phone or door .................. .................. .................. .................. .................. .................. .................. ............... Disposition: Unfulfilled Tal Landa MD [address] [facility], [place], [address], DA - LAI MARTIN 10/30/2024 18:20:46 OBGyn Episode No OBEpisode recorded.
--- OUTSIDE RECORDS SUMMARY | 2025-01-09 13:40 | XMS_ITS | Encounter Summary ---
Author Organization [employer] Address [address] [place] [address] [address] [place] [address] Care Team Providers Care Research Nurse Practitioner Name Role Phone Unavailable Primary Care Provider Unavailabl e Reason for Visit * Reason Comments Med Refill Encounter Details Date Type Department Care Team ([facility] st Contact Info) Description 07/29/2024 Refill [facility] [address] [place] [address] Ganesh Alvarado MD [address] [place] [address] Social History Tobacco Use Types Packs/Day Years [...]
[2025-01-09 13:48] VITALS: BP 136/62; PULSE 62; RESP 16; TEMP 36.1; O2SAT 100
== END 2025-01-09 13:49 | disposition home or self-care (01) ==
LOC: HO.ED 13:37
PROVIDERS: Emergency Provider Emergency Medicine; PCP Internal Medicine
DX: M17.11 Unilateral primary osteoarthritis, right knee (principal); M16.12 Unilateral primary osteoarthritis, left hip; M25.561 Pain in right knee; M25.552 Pain in left hip; Z91.81 History of falling
CPT/HCPCS: 73502; 73562; 99283

== ENCOUNTER → 2025-01-09 11:37 | Outpatient (BNV) | payer OTHER, SELFPAY | PROVIDERS: Emergency Provider Emergency Medicine; PCP Internal Medicine; Visit Provider Radiology Diagnostic Radiology | DX: M16.12 Unilateral primary osteoarthritis, left hip (principal); M17.11 Unilateral primary osteoarthritis, right knee | CPT/HCPCS: 73502; 73562 ==

== ENCOUNTER 2025-01-27 09:44 | Outpatient (AMB) | payer OTHER, SELFPAY ==
--- OUTSIDE RECORDS SUMMARY | 2025-01-27 10:19 | XMS_ITS | Data Portability ---
Author Organization [employer] [facility], [facility] Address [address] [place] [phone] Care Team Providers Care Dairy Equipment Mechanic Name Role Phone HIM CCA OTHER Assessment [...] SNOMED-CT Code Diagnosis ICD10 Code Diagnosis Note [id number] Tal Landa MD [address] [phone] 10/30/2024 12:31:59 10/30/2024 18:20:48 Health Concerns Section Related Observation LastModified by Organization Detai ls LastModified Time None Recorded Concern Status LastModified by Organization Details LastModified Time None Recorded Advance Directives Directive None Recorded Payers Insurance Date Sequence Insurance Name Policy Number Policy Green Covered Member ID Green Member ID Guarantor Name 10/30/2024 1 [facility] - DOS ON OR AFTER 2022 - DUAL ELIGIBLE - USP OPTIONS AND ONE CARE (MEDICARE REPLACEMENT/ADV ANTAGE - HMO) Alee Amato [id number] Alee Amato OBGyn Episode No OBEpisode recorded.
--- NOTE | 2025-01-27 10:45 | MHC.AMDMED ---
Intake Intake Visit Reasons: Discuss Cequr patch and trouble shoot Dexcom Landscape Maintenance Internship Required: Yes Landscape Maintenance Internship Language: Musical Instrument Supervisor Name: [id number] Accompanied by: Self / Same As Patient Allergies empagliflozin (From JARDIANCE) Allergy (Intermediate, Verified 01/09/25 11:26) ITCHY/RASH JARDIANCE Allergy (Intermediate, Uncoded 12/26/24 10:18) pruritus PFSH Medical History Atrial fibrillation Hypothyroidism Asthma Pericardial effusion Pneumonitis Pleural effusion Hypoglycemia unawareness associated with type 2 diabetes mellitus Post-surgical hypothyroidism detention (current) use of insulin Postsurgical hypothyroidism Thyroid cancer Dyslipidemia Essential hypertension Hyperparathyroidism Vitamin D deficiency Obesity (BMI 30-39.9) Diabetes type 2, uncontrolled Surgical History Hx of colonoscopy Hx of total thyroidectomy Hx of hysterectomy Family History Father No problems noted. Mother Arthritis Social History Household Members: Spouse and Children Housing: Apartment Do you presently have visiting nurse or other home services: Yes (Daughter is CERTIFIED WELLNESS PROGRAM MANAGER) Alcohol intake: never Patient Tobacco Use Status: Never used Tobacco e-Cigarette/Vaping Use: Never Used Second Hand Smoke Exposure: No service: No Current occupational status: disabled Cognitive needs: No Hearing needs: No Vision needs: No Assessment & Plan Assessment & Plan (1) Diabetes type 2, uncontrolled: Code(s): E11.65 - Type 2 diabetes mellitus with hyperglycemia Qualifiers: Glycemic state: with hyperglycemia Qualified Code(s): E11.65 - Type 2 diabetes mellitus with hyperglycemia Plan: Patient at visit to set up an insert Dexcom G7 with cell phone sydni Pt reports she needs a replacement G7 credit control manager, email sent to Susan at [employer] for sample Instructed patient sensors water proof you can shower, or swim do not submerge sensor in water for over 30 minutes Is sensor falls off cannot put back in you need to replace sensor, customer service number given to patient for sensor replacement Sensor placed on the Patient left visit with sensor in warmup Reviewed how to interpret trend arrows Discussed lag time between finger stick and sensor data.? Instructed patient the importance of having blood glucometer for backup testing if needed Reviewed delay of CGM from fingersticks Reminded Pt that if symptoms do not match sensor still needs to check fingersticks. Patient reports she had glucose of 70 mg/dL this morning on glucometer Reviewed below: Signs and symptoms of low blood sugar (happen quickly) Each person's reaction to low blood sugar is different. Learn your own signs and symptoms of when your blood sugar is low. Taking time to write these symptoms down may help you learn your own symptoms of when your blood sugar is low. From milder, more common indicators to most severe, signs and symptoms of low blood sugar include: Feeling shaky Being nervous or anxious Sweating, chills and clamminess Irritability or impatience Confusion Fast heartbeat Feeling lightheaded or dizzy Hunger Nausea Color draining from the skin (pallor) Feeling Sleepy Feeling weak or having no energy Blurred/impaired vision Tingling or numbness in the lips, tongue, or cheeks Headaches Coordination problems, clumsiness Hypoglycemia or blood glucose under 70 use the rule of 15's: If you have your blood glucose meter test your blood glucose, if you do not have your meter still follow below instruction: Keep quick-sugar foods with you at all times.? Take 15 grams of fast acting carbohydrates. Examples are 4 ounces of fruit juice or regular soda pop, 8 ounces fat-free milk, 1 tablespoon of table sugar, honey or corn syrup, jam, one miniature box of raisins, 7-8 gumdrops or Life Savers candy, 4 glucose tablets, and glucose gel.? Retest blood glucose in 15 minutes, if blood glucose is still under 80,repeat rule of 15's. If blood glucose is under 50, take 30 grams of fast acting carbohydrates If you are having hypoglycemia, or insulin reaction, more that a few times a week, call MD or conference translator F/U BG check Will discuss CeQue insulin delivery patch at visit in 10 days Patient Instructions: Instrucciones para el paciente: CGM proporciona informaci?n sobre el control de la glucosa en yosef a lo aide del d?a, incluidas la hiperglucemia y la hipoglucemia. Contin?e controlando la glucosa en yosef seg?n las instrucciones. Siga las pautas de nutrici?n proporcionadas. Informe cualquier molestia de inmediato al proveedor de atenci?n m?dica. Mantente izzy hidratado. Puede ba?arse, ducharse, nadar y hacer ejercicio mientras usa el sensor de glucosa. No sumerja el sensor de glucosa en agua fritz m?s de 30 minutos. Retire el sensor para lia resonancia magn?jennifer o lia tomograf?a computarizada. Evite la m?quina de shen X en los aeropuertos: retire el sensor o solicite la varita Coding Level of Care Code Est Pt Level 1 (98130) Diagnoses Uncontrolled type 2 diabetes mellitus with hyperglycemia E11.65 Glycemic state: with hyperglycemia
== END 2025-01-27 13:13 | disposition home or self-care (01) ==
LOC: HO.ENCR 09:44
PROVIDERS: PCP Internal Medicine; Visit Provider Registered Nurse Diabetes Educator
DX: E11.65 Type 2 diabetes mellitus with hyperglycemia (principal)

== ENCOUNTER → 2025-01-27 09:44 | Outpatient (BNVA) | payer OTHER, SELFPAY | PROVIDERS: PCP Internal Medicine; Visit Provider Registered Nurse Diabetes Educator | DX: E11.65 Type 2 diabetes mellitus with hyperglycemia (principal) | CPT/HCPCS: 99211 ==

== ENCOUNTER 2025-02-17 08:58 | Outpatient (AMB) | payer OTHER, SELFPAY ==
--- OUTSIDE RECORDS SUMMARY | 2025-02-17 09:50 | XMS_ITS | Clinical Summary ---
Author Organization [employer] Address [address] [place] [address] 7t [place] [address] Care Team Providers Care Executive Account Manager Name Role Phone Unavailable Primary Care [...] complication, with long-term current use of insulin ([facility]) INJETAR 20 UNIDADES SUBCUTANEAS TEDDY VEZ AMANDA. 15 mL 11 06/08/20 23 Active lisinopril 10 MG tablet TAKE 1 TABLET BY MOUTH DAILY 28 tablet 3 06/28/20 23 Active Encounters Date Type Department Care Team Description 11/26/2024 Refill [facility] MED & PEDS [address] [place] [address] Ganesh Alvarado MD from Last 3 Months Immunizations Immunization Administration Dates Next Due Moderna Covid-19 Vaccine [...] 11/09/2020, Additional history exists Influenza Vaccine (#1) 2025 2, 03/27/2011, 03/28/2010, Additional history exists Lipid [...] patient's age to complete this topic Meningococcal B Vaccine Aged Out No l onger eligible based on patient's age to complete [...] [facility] Comment: Desirable Cholesterol: less than 200 mg/dL Borderline High Cholesterol: 200-239 mg/dL High Cholesterol: greater than 239 mg/dL HDL Cholesterol 41 mg/dL [facility] Comment: Desirable HDL: greater than 40 mg/dL Note: This HDL assay may give artificially low results in patients with liver disease. LDL Cholesterol Calculated 127 mg/dl [facility] Comment: Desirable LDL: less than 100 mg/dL Near Optimal/Above Optimal LDL: 110-129 mg/dL Borderline High LDL: 130-159 mg/dL High LDL: 160-189 mg/dL Very High LDL: greater than or equal to 190 mg/dL Triglycerides 94 mg/dL [facility] Comment: Desirable Triglyceride: less than 150 mg/dL Borderline High Triglyceride 150-199 mg/dL High Triglyceride: 200-499 mg/dL Very High Triglyceride: greater than or equal to 5OO mg/dL Thyroid Stimulating Hormone 0.40 0.32 [...] Rate >60 [facility] Comment: NOTE: For -Colombian individuals, multiply the result by 1.210. Chronic Kidney Disease: Estimated GFR < 60 mL/min/1.73m2 Severe Kidney Disease: Estimated GFR < 15 mL/min/1.73m2 Glucose Fasting 110(H) 60 - 99 mg/dL [facility] Comment: A fasting glucose from 100-125 mg/dl is considered impaired (pre-diabetes). Potassium 4.8 3.3 - 5.1 mmol/l [facility] Sodium 143 135 - 145 mmol/L [facility] Total Protein 6.9 6.5 - 8.0 g/dL [facility] Vitamin D 25-OH Total 50.3 >30 ng/mL [facility] Comment: Health Based Reference Values* < 20 ng/mL Deficient 20-30 ng/mL Insufficient > 30 ng/mL Sufficient *Maida RASHEED. N Engl J Med. 2007;357:266-280 Care must be taken in interpreting Vitamin D results from different laboratories and methodologies. Published data demonstrated that results from patients undergoing hemodialysis may show a negative bias when tested with various automated 25-OH vitamin D assays when compared to LC-MS/MS. When testing samples from patients whose predominant form of Vitamin D is Vitamin D2, such as patients receiving Vitamin D2 supplementation, results that are subtherapeutic should be confirmed with another method such as LC-MS/MS. Free T4 (Free Thyroxine) 1.32 0.71 - 1.85 ng/dL [facility] 05/25/2020 10:1 0 AM EST us Historical Provider HISTORICAL/NON ORDERABLE LABS Final Result Performing Organization Address City/State/[facility] Co de Phone Number [facility] [address] [place] [address] * Mammography Report 1 (05/04/2020 9:06 AM [...]
--- NOTE | 2025-02-17 10:11 | MHC.AMDMED ---
Intake Intake Visit Reasons: 60 min Respiratory Technician Required: Yes Respiratory Technician Language: Automatic Transmission Mechanic Name: [facility] coach operator Accompanied by: Self / Same As Patient Allergies empagliflozin (From JARDIANCE) Allergy (Intermediate, Verified 01/09/25 11:26) ITCHY/RASH JARDIANCE Allergy (Intermediate, Uncoded 12/26/24 10:18) pruritus PFSH Medical History Atrial fibrillation Hypothyroidism Asthma Pericardial effusion Pneumonitis Pleural effusion Hypoglycemia unawareness associated with type 2 diabetes mellitus Post-surgical hypothyroidism 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 Mother Arthritis Social History Household Members: Spouse and Children Housing: Apartment Do you presently have visiting nurse or other home services: Yes (Daughter is [employer]BLE CUTTER) Alcohol intake: never Patient Tobacco Use Status: Never used Tobacco e-Cigarette/Vaping Use: Never Used Second Hand Smoke Exposure: No service: No Current occupational status: disabled Cognitive needs: No Hearing needs: No Vision needs: No Assessment & Plan Assessment & Plan (1) Diabetes type 2, uncontrolled: Code(s): E11.65 - Type 2 diabetes mellitus with hyperglycemia Qualifiers: Glycemic state: with hyperglycemia Qualified Code(s): E11.65 - Type 2 diabetes mellitus with hyperglycemia Plan: Personal Continuous Glucose Monitor: Patients CGM information reviewed, Pt uses Dexcom [employer] with phone sydni Patient reports taking Tresiba 18 units in a.m. Patient reported that she is taking Humalog 8 units for breakfast, 5 units for lunch and 8 units for supper We reviewed CeQue insulin delivery patch, at visit she said she would consider. Patient reports she could not get Trulicity. She reported that she took one dose her cousins Maeve. Discussed the importance of not taking other people's medications. She stated that she would prefer Mounjaro to Trulicity. I did call pharmacy after visit, pharmacy told me that she has not picked up Humalog in 2 years she has not picked up Trulicity since October 2024 Message sent to endocrine provider, regarding topics discussed above Pt has PA appt on 03/06/2025 Patient's CGM shows patient is having overnight hypoglycemia recommended to patient she reduce Tresiba to 14 units daily Patient able to insert sensor independently at home without issue.? Portions of this note were created using voice recognition software, please excuse any words or phrases that may have been misinterpreted. Patient Instructions: Reducir la dosis de Tresiba de 18 unidades a 14 unidades lia vez al d?a. Seguimiento con el enfermero de educaci?n diab?jennifer en un mes. Coding Level of Care Code Est Pt Level 1 (79061) Diagnoses Uncontrolled type 2 diabetes mellitus with hyperglycemia E11.65 Glycemic state: with hyperglycemia
== END 2025-02-17 10:22 | disposition home or self-care (01) ==
LOC: HO.ENCR 08:59
PROVIDERS: PCP Internal Medicine; Visit Provider Registered Nurse Diabetes Educator
DX: E11.65 Type 2 diabetes mellitus with hyperglycemia (principal)

== ENCOUNTER → 2025-02-17 08:58 | Outpatient (BNVA) | payer OTHER, SELFPAY | PROVIDERS: PCP Internal Medicine; Visit Provider Registered Nurse Diabetes Educator | DX: E11.65 Type 2 diabetes mellitus with hyperglycemia (principal); Z79.4 Long term (current) use of insulin | CPT/HCPCS: 99211 ==

== ENCOUNTER 2025-02-26 12:51 | Outpatient (REF) | payer OTHER, SELFPAY ==
--- OUTSIDE RECORDS SUMMARY | 2025-02-26 13:26 | XMS_ITS | Encounter Summary ---
Author Organization [employer] Address [address] [place] [address] 7 [place] [address] Care Team Providers Care Master Control Engineer Name Role Phone Unavailable Primary Care Provider Unavailabl e Reason for Visit * Reason Comments Med Refill Encounter Details Date Type Department Care Team ([facility] st Contact Info) Description 08/26/2024 Refill [facility] MED & PEDS [address] [place] [address] Ganesh Alvarado MD [address] [place] [address] Social History Tobacco Use Types Packs/Day Years [...]
--- OUTSIDE RECORDS SUMMARY | 2025-02-26 13:26 | XMS_ITS | Encounter Summary ---
Author Organization [employer] Address [address] [place] [address] 7 [place] [address] Care Team Providers Care Lidar Analyst Name Role Phone Unavailable Primary Care Provider Unavailabl e Reason for Visit * Reason Comments Med Refill Encounter Details Date Type Department Care Team ([facility] st Contact Info) Description 04/09/[address] [facility] CHC MED & PEDS [address] [place] [address] Ganesh Alvarado MD [address] [place] [address] Social History Tobacco Use Types Packs/Day Years [...]
--- OUTSIDE RECORDS SUMMARY | 2025-02-26 13:26 | XMS_ITS | Encounter Summary ---
Author Organization [employer] Address [address] [place] [address] 7 [place] [address] Care Team Providers Care Anime Artist Name Role Phone Unavailable Primary Care Provider Unavailabl e Reason for Visit * Reason Comments Med Refill Encounter Details Date Type Department Care Team ([facility] st Contact Info) Description 11/02/2023 Refill [facility] CHC MED & PEDS [address] [place] [address] Ganesh Alvarado MD [address] [place] [address] Social History Tobacco Use Types Packs/Day Years [...]
--- OUTSIDE RECORDS SUMMARY | 2025-02-26 13:26 | XMS_ITS | Encounter Summary ---
Author Organization [employer] [facility] Address [address] [place] [address] 7 [place] [address] Care Team Providers Care Animal Care Supervisor Name Role Phone Ganesh Alvarado MD Primary Care Provider [phone] Reason for Visit * Reason Comments Med Refill Encounter Details Date Type Department Care Team (Late st Contact Info) Description 08/06/2023 Refill [facility] MEDICINE [address] [place] [address] Ganesh Alvarado MD [address] [place], [place] [id number] Social History Tobacco Use Types Packs/Day Years [...] on filedocumented in this encounter Care Teams Animal Care Supervisor Relationship Specialty Start Date End Date Ganesh Alvarado MD [address] [place] [address] PCP - General Internal Medicine 12/21/17 09/05/23 documented as of this encounter
--- OUTSIDE RECORDS SUMMARY | 2025-02-26 13:26 | XMS_ITS | Encounter Summary ---
Author Organization [employer] Address [address] [place] [address] 7 [place] [address] Care Team Providers Care Second Butler Name Role Phone Unavailable Primary Care Provider Unavailabl e Reason for Visit * Reason Comments Med Refill Encounter Details Date Type Department Care Team ([facility] st Contact Info) Description 11/06/2023 Refill [facility] CHC MED & PEDS [address] [place] [address] Ganesh Alvarado MD [address] [place] [address] Social History Tobacco Use Types Packs/Day Years [...]
--- OUTSIDE RECORDS SUMMARY | 2025-02-26 13:26 | XMS_ITS | Encounter Summary ---
Author Organization [employer] Address [address] [place] [address] 7 [place] [address] Care Team Providers Care Road Crew Member Name Role Phone Unavailable Primary Care Provider Unavailabl e Reason for Visit * Reason Comments Med Refill Encounter Details Date Type Department Care Team ([facility] st Contact Info) Description 10/18/2023 Refill [facility] MEDICINE [address] [place] [address] Ganesh Alvarado MD [address] [place] [address] Social History Tobacco Use Types Packs/Day Years [...]
--- OUTSIDE RECORDS SUMMARY | 2025-02-26 13:26 | XMS_ITS | Encounter Summary ---
Author Organization [employer] Address [address] [place] [address] 7 [place] [address] Care Team Providers Care Account Development Associate Name Role Phone Unavailable Primary Care Provider Unavailabl e Reason for Visit * Reason Comments Med Refill Encounter Details Date Type Department Care Team ([facility] st Contact Info) Description 01/17/2024 Refill [facility] CHC MED & PEDS [address] [place] [address] Ganesh Alvarado MD [address] [place] [address] Social History Tobacco Use Types Packs/Day Years [...]
--- OUTSIDE RECORDS SUMMARY | 2025-02-26 13:26 | XMS_ITS | Encounter Summary ---
Author Organization [employer] Address [address] [place] [address] 7 [place] [address] Care Team Providers Care Head Start Director Name Role Phone Unavailable Primary Care Provider Unavailabl e Reason for Visit * Reason Comments Med Refill Encounter Details Date Type Department Care Team ([facility] st Contact Info) Description 10/08/2024 Refill [facility] CHC MED & PEDS [address] [place] [address] Ganesh Alvarado MD [address] [place] [address] Social History Tobacco Use Types Packs/Day Years [...]
--- OUTSIDE RECORDS SUMMARY | 2025-02-26 13:26 | XMS_ITS | Clinical Summary ---
Author Organization [employer] Address [address] [place] [address] 7t [place] [address] Care Team Providers Care Newspaper Managing Editor Name Role Phone Unavailable Primary Care Provider [...] complication, with long-term current use of insulin ([facility]) INJETAR 20 UNIDADES SUBCUTANEAS TEDDY VEZ AMANDA. 15 mL 11 06/08/20 23 Active lisinopril 10 MG tablet TAKE 1 TABLET BY MOUTH DAILY 28 tablet 3 06/28/20 23 Active Encounters Date Type Department Care Team Description 11/26/2024 Refill [facility] MED & PEDS [address] [place] [address] Ganesh Alvarado MD from Last 3 Months [...] 239 mg/dL HDL Cholesterol 41 mg/dL [facility] Comment: Desirable HDL: greater than [...] >60 [facility] Comment: NOTE: For -Ukrainian individuals, multiply the result by 1.210. Chronic [...] Thyroxine) 1.32 0.71 - 1.85 ng/dL [facility] 05/25/2020 10:1 0 AM EST us Historical Provider HISTORICAL/NON ORDERABLE LABS Final Result Performing Organization Address City/State/[facility] Co de Phone Number [facility] [address] [place] [address] * Mammography Report 1 (05/04/2020 9:06 AM [...]
--- OUTSIDE RECORDS SUMMARY | 2025-02-26 13:26 | XMS_ITS | Encounter Summary ---
Author Organization [employer] Address [address] [place] [address] 7 [place] [address] Care Team Providers Care Executive Director Contract Shop Name Role Phone Unavailable Primary Care Provider Unavailabl e Reason for Visit * Reason Comments Med Refill Encounter Details Date Type Department Care Team ([facility] st Contact Info) Description 11/26/2024 Refill [facility] CHC MED & PEDS [address] [place] [address] Ganesh Alvarado MD [address] [place] [address] Social History Tobacco Use Types Packs/Day Years [...]
--- OUTSIDE RECORDS SUMMARY | 2025-02-26 13:26 | XMS_ITS | Encounter Summary ---
Author Organization [employer] Address [address] [place] [address] 7 [place] [address] Care Team Providers Care Agricultural Economics Professor Name Role Phone Unavailable Primary Care Provider Unavailabl e Reason for Visit * Reason Comments Med Refill Encounter Details Date Type Department Care Team ([facility] st Contact Info) Description 07/01/2024 Refill [facility] CHC MED & PEDS [address] [place] [address] Ganesh Alvarado MD [address] [place] [address] Social History Tobacco Use Types Packs/Day Years [...]
--- OUTSIDE RECORDS SUMMARY | 2025-02-26 13:26 | XMS_ITS | Encounter Summary ---
Author Organization [employer] Address [address] [place] [address] 7 [place] [address] Care Team Providers Care Food Technician Name Role Phone Unavailable Primary Care Provider Unavailabl e Reason for Visit * Reason Comments Med Refill Encounter Details Date Type Department Care Team ([facility] st Contact Info) Description 06/04/2024 Refill [facility] CHC MED & PEDS [address] [place] [address] Ganesh Alvarado MD [address] [place] [address] Social History Tobacco Use Types Packs/Day Years [...]
--- OUTSIDE RECORDS SUMMARY | 2025-02-26 13:26 | XMS_ITS | Encounter Summary ---
Author Organization [employer] Address [address] [place] [address] 7 [place] [address] Care Team Providers Care Personalized Living Assistant Name Role Phone Unavailable Primary Care Provider Unavailabl e Reason for Visit * Reason Comments Med Refill Encounter Details Date Type Department Care Team ([facility] st Contact Info) Description 04/10/2024 Refill [facility] CHC MED & PEDS [address] [place] [address] Ganesh Alvarado MD [address] [place] [address] Social History Tobacco Use Types Packs/Day Years [...]
--- OUTSIDE RECORDS SUMMARY | 2025-02-26 13:26 | XMS_ITS | Encounter Summary ---
Author Organization [employer] Address [address] [place] [address] 7 [place] [address] Care Team Providers Care Sausage Grinder Name Role Phone Unavailable Primary Care Provider Unavailabl e Reason for Visit * Reason Comments Med Refill Encounter Details Date Type Department Care Team ([facility] st Contact Info) Description 07/29/2024 Refill [facility] CHC MED & PEDS [address] [place] [address] Ganesh Alvarado MD [address] [place] [address] Social History Tobacco Use Types Packs/Day Years [...]
--- OUTSIDE RECORDS SUMMARY | 2025-02-26 13:26 | XMS_ITS | Encounter Summary ---
Author Organization [employer] Address [address] [place] [address] 7 [place] [address] Care Team Providers Care Bar Useful Or Busser Name Role Phone Unavailable Primary Care Provider Unavailabl e Reason for Visit * Reason Comments Med Refill Encounter Details Date Type Department Care Team ([facility] st Contact Info) Description 05/06/2024 Refill [facility] CH[facility] MED & PEDS [address] [place] [address] Ganesh Alvarado MD [address] [place] [address] Social History Tobacco Use Types Packs/Day Years [...]
--- OUTSIDE RECORDS SUMMARY | 2025-02-26 13:26 | XMS_ITS | Encounter Summary ---
Author Organization [employer] Address [address] [place] [address] 7 [place] [address] Care Team Providers Care Chummer Name Role Phone Ganesh Alvarado MD Primary Care Provider [phone] Encounter Details Date Type Department Care Team ([facility] st Contact Info) Description 11/24/2022 [facility] MED & PEDS [address] [place] [address] Ganesh Alvarado MD [address] [place] [address] Social History Tobacco Use Types Packs/Day Years [...] on filedocumented in this encounter Care Teams Chummer Relationship Specialty Start Date End Date Ganesh Alvarado MD [address] [place] [address] PCP - General Internal Medicine 12/21/17 09/05/23 documented as of this encounter
--- OUTSIDE RECORDS SUMMARY | 2025-02-26 13:26 | XMS_ITS | Encounter Summary ---
Author Organization [employer] Address [address] [place] [address] 7 [place] [address] Care Team Providers Care Therapeutic Recreation Specialist Name Role Phone Ganesh Alvarado MD Primary Care Provider [phone] Reason for Visit * Reason Comments Med Refill Encounter Details Date Type Department Care Team ([facility] st Contact Info) Description 06/08/2023 Refill [facility] CHC MED & PEDS [address] [place] [address] Ganesh Alvarado MD [address] [place] [address] Social History Tobacco Use Types Packs/Day Years [...] on filedocumented in this encounter Care Teams Therapeutic Recreation Specialist Relationship Specialty Start Date End Date Ganesh Alvarado MD [address] [place] [address] PCP - General Internal Medicine 12/21/17 09/05/23 documented as of this encounter
== END 2025-02-26 12:52 | disposition home or self-care (01) ==
LOC: HO.MAMMO 12:51
PROVIDERS: PCP Internal Medicine; Visit Provider Internal Medicine
DX: Z12.31 Encounter for screening mammogram for malignant neoplasm of breast (principal)
CPT/HCPCS: 77063; 77067

== ENCOUNTER → 2025-02-26 13:15 | Outpatient (BNV) | payer OTHER, SELFPAY | PROVIDERS: PCP Internal Medicine; Visit Provider Radiology Body Imaging | DX: Z12.31 Encounter for screening mammogram for malignant neoplasm of breast (principal) | CPT/HCPCS: 77063; 77067 ==

== ENCOUNTER 2025-03-06 09:01 | Outpatient (AMB) | payer OTHER, SELFPAY ==
--- NOTE | 2025-03-06 09:03 | MHC.OFFVIS ---
Vital Signs 03/06/25 09:05 03/06/25 09:23 Height 5 ft Weight 175 lb 14.862 oz BMI 34.4 BP 124/82 Blood Pressure Location Rt brachial Position Sitting Pulse 136 H 138 H Pulse Source Pulse Oximeter Pulse Oximetry (%) 97 Oxygen Delivery Method Room Air Intake Visit Reasons: T2DM Intake Note: Patient present today to follow up on Type 2 Diabetes Mellitus. Patient receives Dexcom G7 supplies through: [employer] Last Diabetic Eye exam: Due, Has an appointment in November 2024 Last Podiatry Visit: Does not see a Chief Librarian Music Department Random Glucose: 210 mg/dl HgA1C: 8.8% 12/26/2024 Clerk Supervisor Required: Yes Clerk Supervisor Language: Appliance Repair Technician Services: Clerk Supervisor Present Clerk Supervisor Name: Timbo [id number] Information Interpreted: non-clinical & clinical Accompanied by: Self / Same As Patient Allergies empagliflozin (From JARDIANCE) Allergy (Intermediate, Verified 03/06/25 09:06) ITCHY/RASH JARDIANCE Allergy (Intermediate, Uncoded 03/06/25 09:06) pruritus HPI Comments Details: 69-year-old female with a past medical history of atrial fibrillation, cardiomyopathy, type 2 diabetes, anemia, hypertension, hyperparathyroidism and thyroid cancer presents for diabetic follow up. Chinese video bottling room worker used. Patient says that she is not feeling well this morning. She reports dizziness this morning and intermittently for the last couple of weeks. She feels like her head is spinning. Denies nausea or vomiting. She endorses mild headache. She denies vision changes. Denies recent illness. Dizziness is worse when she stands up and walks. She feels like her heart is racing. Denies chest pain or shortness of breath. She has a past medical history of atrial fibrillation with RVR and upon further questioning reveals that she has been out of her diltiazem and metoprolol for at least the last couple of weeks. She is followed by Dr. Guo for thyroid cancer. HgA1C: 8.8% 12/26/2024 down from 9% 10/02/24. POC is 210 today. Reviewed CGM data February 21 to March 06 G AK 8.5% 35% very high 30% high 35% in range 0% hypoglycemia She has good blood sugar readings overnight and in the morning and hyperglycemia throughout the day and evening. She reported at her appointment with the senior health educator on 02/17/2025 that she could not get Trulicity from the pharmacy so she took a dose of her cousin's Mounjaro. She stated she would prefer Mounjaro to Trulicity, and the CDE contacted the pharmacy who reported she had not picked up Humalog in 2 years or picked up Trulicity since October 2024. She is taking Tresiba 14 units daily reduced from 18 units due to overnight hypoglycemia which resolved. Past medications: Metformin discontinued due to diarrhea and lactic acidosis. Jardiance and Farxiga discontinued due to yeast infection. She has never been on Actos, but she had an echocardiogram this year which showed severe diastolic dysfunction and severely dilated left atrium. Complications: Neuropathy and nephropathy She is treated with rosuvastatin for hyperlipidemia. ROS: Constitutional: Endorses fatigue. Denies weight change, fevers and chills. Eyes: No vision changes, blurry vision, double vision Respiratory: No shortness of breath Cardiovascular: Denies chest pain. See HPI. Gastrointestinal: Nausea, vomiting or diarrhea or abdominal pain. Neurologic: No headache, numbness, tingling, weakness, difficulty speaking. Physical exam: Constitutional: Alert, in no distress. Neck: Supple, Full range of motion. No lymphadenopathy. Respiratory: Clear to auscultation. No dyspnea Cardiovascular: Tachycardic. No murmur. Neurologic: No focal neurological deficits Extremities: Warm and well perfused. No clubbing, cyanosis or pedal edema. Psychiatric: Normal mood and affect Skin: Normal, no diaphoresis [facility] Medical History Atrial fibrillation Hypothyroidism Asthma Pericardial effusion Pneumonitis Pleural effusion Hypoglycemia unawareness associated with type 2 diabetes mellitus Post-surgical hypothyroidism skilled nursing (current) use of insulin Postsurgical hypothyroidism Thyroid cancer Dyslipidemia Essential hypertension Hyperparathyroidism Vitamin D deficiency Obesity (BMI 30-39.9) Diabetes type 2, uncontrolled Surgical History Hx of colonoscopy Hx of total thyroidectomy Hx of hysterectomy Family History Father No problems noted. Mother Arthritis Social History Household Members: Spouse and Children Housing: Apartment Do you presently have visiting nurse or other home services: Yes (Daughter is BROOMMAKING SUPERVISOR) Alcohol intake: never Patient Tobacco Use Status: Never used Tobacco e-Cigarette/Vaping Use: Never Used Second Hand Smoke Exposure: No service: No Current occupational status: disabled Cognitive needs: No Hearing needs: No Vision needs: No Physical Exam Vital Signs: Last Vital Signs Pulse 136 H 03/06/25 09:05 BP 124/82 03/06/25 09:05 Pulse Ox 97 03/06/25 09:05 Oxygen Delivery Method Room Air 03/06/25 09:05 BMI result Body Mass Index 34.4 Assessment & Plan Assessment & Plan (1) Essential hypertension: Code(s): I10 - Essential (primary) hypertension Category: Medical (2) Atrial fibrillation with RVR: Code(s): I48.91 - Unspecified atrial fibrillation Category: Medical (3) Cardiomyopathy: Code(s): I42.9 - Cardiomyopathy, unspecified Category: Medical (4) Diabetes type 2, uncontrolled: Code(s): E11.65 - Type 2 diabetes mellitus with hyperglycemia Category: Medical Qualifiers: Glycemic state: with hyperglycemia Qualified Code(s): E11.65 - Type 2 diabetes mellitus with hyperglycemia Plan In summary this is a 70-year-old female presenting today for diabetic follow up however she was not feeling well and reported lightheadedness and a racing heart beat. She is tachycardic. I have a high suspicion that she may be in atrial flutter or atrial fibrillation with RVR based on the fact that she also has been out of her beta-nick and calcium channel nick the last couple of weeks. Patient transferred to the hospital via ambulance. The focus of the visit was the patient's acute symptoms and tachycardia today. We will reschedule her diabetes follow up upon discharge from the hospital. Orders: Orders Aspartate Amino Transferase Today E11.65 - Type 2 diabetes mellitus with hyperglycemia, I10 - Essential (primary) hypertension, Z79.4 - skilled nursing (current) use of insulin Microalbumin, Random (w Creat) Today E11.65 - Type 2 diabetes mellitus with hyperglycemia, E11.9 - Type 2 diabetes mellitus without complications, I10 - Essential (primary) hypertension, Z79.4 - third rigger (current) use of insulin Hemoglobin A1c Today R73.9 - Hyperglycemia, unspecified Creatinine Today E11.65 - Type 2 diabetes mellitus with hyperglycemia, E11.9 - Type 2 diabetes mellitus without complications, I10 - Essential (primary) hypertension, Z79.4 - third rigger (current) use of insulin Alanine Aminotransferase Today E11.65 - Type 2 diabetes mellitus with hyperglycemia, I10 - Essential (primary) hypertension, Z79.4 - third rigger (current) use of insulin Platelet Count Today E11.65 - Type 2 diabetes mellitus with hyperglycemia, E11.9 - Type 2 diabetes mellitus without complications, I10 - Essential (primary) hypertension, Z79.4 - skilled nursing (current) use of insulin Lipid Panel Today E11.65 - Type 2 diabetes mellitus with hyperglycemia, E78.5 - Hyperlipidemia, unspecified, I10 - Essential (primary) hypertension, Z79.4 - third rigger (current) use of insulin Coding Level of Care Code Est Pt Level 5 (91264) Complex EM visit Add On G2211 Diagnoses Essential hypertension I10 Atrial fibrillation with RVR I48.91 Cardiomyopathy I42.9 Uncontrolled type 2 diabetes mellitus with hyperglycemia E11.65 Glycemic state: with hyperglycemia
[2025-03-06 09:05] VITALS: BP 124/82; PULSE 136; O2SAT 97; BMI 34.4
[2025-03-06 09:16] LABS: Glucose, Whole Blood 210 mg/dL (60-115)
[2025-03-06 09:23] VITALS: PULSE 138
--- OUTSIDE RECORDS SUMMARY | 2025-03-06 09:45 | XMS_ITS | Encounter Summary ---
Author Organization [employer] Address [address] [place] [address] 7 [place] [address] Care Team Providers Care Bridal Sales Consultant Name Role Phone Unavailable Primary Care Provider Unavailabl e Reason for Visit * Reason Comments Med Refill Encounter Details Date Type Department Care Team ([facility] st Contact Info) Description 07/01/2024 Refill [facility] CHC MED & PEDS [address] [place] [address] Ganesh Alvarado MD [address] [place] [address] Social History Tobacco Use Types Packs/Day Years [...]
--- OUTSIDE RECORDS SUMMARY | 2025-03-06 09:45 | XMS_ITS | Encounter Summary ---
Author Organization [employer] Address [address] [place] [address] 7 [place] [address] Care Team Providers Care Chemist Organic Name Role Phone Unavailable Primary Care Provider Unavailabl e Reason for Visit * Reason Comments Med Refill Encounter Details Date Type Department Care Team ([facility] st Contact Info) Description 01/17/2024 Refill [facility] CHC MED & PEDS [address] [place] [address] Ganesh Alvarado MD [address] [place] [address] Social History Tobacco Use Types Packs/Day Years [...]
--- OUTSIDE RECORDS SUMMARY | 2025-03-06 09:45 | XMS_ITS | Encounter Summary ---
Author Organization [employer] Address [address] [place] [address] 7 [place] [address] Care Team Providers Care Regional Director Of Admissions Name Role Phone Unavailable Primary Care Provider Unavailabl e Reason for Visit * Reason Comments Med Refill Encounter Details Date Type Department Care Team ([facility] st Contact Info) Description 11/26/2024 Refill [facility] CHC MED & PEDS [address] [place] [address] Ganesh Alvarado MD [address] [place] [address] Social History Tobacco Use Types Packs/Day Years [...]
--- OUTSIDE RECORDS SUMMARY | 2025-03-06 09:45 | XMS_ITS | Encounter Summary ---
Author Organization [employer] Address [address] [place] [address] 7 [place] [address] Care Team Providers Care Process Tank Tender Name Role Phone Ganesh Alvarado MD Primary Care Provider [phone] Encounter Details Date Type Department Care Team ([facility] st Contact Info) Description 11/24/2022 Abstract [facility] CHC MED & PEDS [address] [place] [address] Ganesh Alvarado MD [address] [place] [address] Social History Tobacco Use Types Packs/Day Years [...] on filedocumented in this encounter Care Teams Process Tank Tender Relationship Specialty Start Date End Date Ganesh Alvarado MD [address] [place] [address] PCP - General Internal Medicine 12/21/17 09/05/23 documented as of this encounter
--- OUTSIDE RECORDS SUMMARY | 2025-03-06 09:45 | XMS_ITS | Encounter Summary ---
Author Organization [employer] Address [address] [place] [address] 7 [place] [address] Care Team Providers Care Water Valve Mechanic Name Role Phone Unavailable Primary Care Provider Unavailabl e Reason for Visit * Reason Comments Med Refill Encounter Details Date Type Department Care Team ([facility] st Contact Info) Description 10/18/2023 Refill [facility] MEDICINE [address] [place] [address] Ganesh Alvarado MD [address] [place] [address] Social History Tobacco Use Types Packs/Day Years [...]
--- OUTSIDE RECORDS SUMMARY | 2025-03-06 09:45 | XMS_ITS | Clinical Summary ---
Author Organization [employer] Address [address] [place] [address] 7t [place] [address] Care Team Providers Care Watch Crystal Grinder Name Role Phone Unavailable Primary Care [...] complication, with long-term current use of insulin ([facility]) INJETAR 20 UNIDADES SUBCUTANEAS TEDDY VEZ AMANDA. 15 mL 11 06/08/20 23 Active lisinopril 10 MG tablet TAKE 1 TABLET BY MOUTH DAILY 28 tablet 3 06/28/20 23 Active Immunizations Immunization Administration Dates Next Due Moderna [...] 05/04/2020, 04/03, 02/28/2018 COVID-19 Vaccine ( season) 2025 07/21/2022, 07/05/2021, 11/09/2020, Additional history exists Influenza [...] 239 mg/dL HDL Cholesterol 41 mg/dL [facility] Comment: Desirable HDL: greater than 40 mg/dL Note: This HDL assay may give artificially low results in patients with liver disease. LDL Cholesterol Calculated 127 mg/dl [facility] Comment: Desirable LDL: less than [...] >60 [facility] Comment: NOTE: For -Nauruan individuals, multiply the result by 1.210. Chronic Kidney Disease: Estimated GFR < 60 mL/min/1.73m2 Severe Kidney Disease: Estimated GFR < 15 mL/min/1.73m2 Glucose Fasting 110(H) 60 - 99 mg/dL [facility] Comment: A fasting glucose from [...] (Free Thyroxine) 1.32 0.71 - 1.85 ng/dL [facility] 05/25/2020 10:1 0 AM EST Historical Provider HISTORICAL/NON ORDERABLE LABS Final Result Performing Organization Address City/State/[facility] Co de Phone Number [facility] [address] [place] [address] * Mammography Report 1 (05/04/2020 9:06 AM [...] Recently Relevant to Health Maintenance Insurance [place] [address] [place] [phone]
--- OUTSIDE RECORDS SUMMARY | 2025-03-06 09:45 | XMS_ITS | Encounter Summary ---
Author Organization [employer] Address [address] [place] [address] 7 [place] [address] Care Team Providers Care Editor Sound Name Role Phone Unavailable Primary Care Provider Unavailabl e Reason for Visit * Reason Comments Med Refill Encounter Details Date Type Department Care Team ([facility] st Contact Info) Description 06/04/2024 Refill [facility] CHC MED & PEDS [address] [place] [address] Ganesh Alvarado MD [address] [place] [address] Social History Tobacco Use Types Packs/Day Years [...]
--- OUTSIDE RECORDS SUMMARY | 2025-03-06 09:45 | XMS_ITS | Encounter Summary ---
Author Organization [employer] [facility] Address [address] [place] [address] 7 [place] [address] Care Team Providers Care Technology Professional Name Role Phone Ganesh Alvarado MD Primary Care Provider [phone] Reason for Visit * Reason Comments Med Refill Encounter Details Date Type Department Care Team (Late st Contact Info) Description 08/06/2023 Refill [facility] MEDICINE [address] [place] [address] Ganesh Alvarado MD [address] [place], [place] [address] Social History Tobacco Use Types Packs/Day Years [...] on filedocumented in this encounter Care Teams Technology Professional Relationship Specialty Start Date End Date Ganesh Alvarado MD [address] [place] [address] PCP - General Internal Medicine 12/21/17 09/05/23 documented as of this encounter
--- OUTSIDE RECORDS SUMMARY | 2025-03-06 09:45 | XMS_ITS | Encounter Summary ---
Author Organization [employer] Address [address] [place] [address] 7 [place] [address] Care Team Providers Care Director Enterprise Data Architecture Name Role Phone Unavailable Primary Care Provider Unavailabl e Reason for Visit * Reason Comments Med Refill Encounter Details Date Type Department Care Team ([facility] st Contact Info) Description 04/09/2024 Refill [facility] CHC MED & PEDS [address] [place] [address] Ganesh Alvarado MD [address] [place] [address] Social History Tobacco Use Types Packs/Day Years [...]
--- OUTSIDE RECORDS SUMMARY | 2025-03-06 09:45 | XMS_ITS | Encounter Summary ---
Author Organization [employer] Address [address] [place] [address] 7 [place] [address] Care Team Providers Care High Pressure Boiler Operator Name Role Phone Unavailable Primary Care Provider Unavailabl e Reason for Visit * Reason Comments Med Refill Encounter Details Date Type Department Care Team ([facility] st Contact Info) Description 07/29/2024 Refill [facility] CHC MED & PEDS [address] [place] [address] Ganesh Alvarado MD [address] [place] [address] Social History Tobacco Use Types Packs/Day Years [...]
--- OUTSIDE RECORDS SUMMARY | 2025-03-06 09:45 | XMS_ITS | Encounter Summary ---
Author Organization [employer] Address [address] [place] [address] 7 [place] [address] Care Team Providers Care Consumer Marketing Manager Name Role Phone Unavailable Primary Care Provider Unavailabl e Reason for Visit * Reason Comments Med Refill Encounter Details Date Type Department Care Team ([facility] st Contact Info) Description 10/08/2024 Refill [facility] CHC MED & PEDS [address] [place] [address] Ganesh Alvarado MD [address] [place] [address] Social History Tobacco Use Types Packs/Day Years [...]
--- OUTSIDE RECORDS SUMMARY | 2025-03-06 09:45 | XMS_ITS | Encounter Summary ---
Author Organization [employer] Address [address] [place] [address] 7 [place] [address] Care Team Providers Care Chair Inspector Name Role Phone Unavailable Primary Care Provider Unavailabl e Reason for Visit * Reason Comments Med Refill Encounter Details Date Type Department Care Team ([facility] st Contact Info) Description 04/10/2024 Refill [facility] CHC MED & PEDS [address] [place] [address] Ganesh Alvarado MD [address] [place] [address] Social History Tobacco Use Types Packs/Day Years [...]
--- OUTSIDE RECORDS SUMMARY | 2025-03-06 09:45 | XMS_ITS | Encounter Summary ---
Author Organization [employer] Address [address] [place] [address] 7 [place] [address] Care Team Providers Care News Correspondent Name Role Phone Unavailable Primary Care Provider Unavailabl e Reason for Visit * Reason Comments Med Refill Encounter Details Date Type Department Care Team ([facility] st Contact Info) Description 08/26/2024 Refill [facility] CHC MED & PEDS [address] [place] [address] Ganesh Alvarado MD [address] [place] [address] Social History Tobacco Use Types Packs/Day Years [...]
--- OUTSIDE RECORDS SUMMARY | 2025-03-06 09:45 | XMS_ITS | Encounter Summary ---
Author Organization [employer] Address [address] [place] [address] 7 [place] [address] Care Team Providers Care Brim And Crown Presser Name Role Phone Unavailable Primary Care Provider Unavailabl e Reason for Visit * Reason Comments Med Refill Encounter Details Date Type Department Care Team ([facility] st Contact Info) Description 11/06/2023 Refill [facility] CHC MED & PEDS [address] [place] [address] Ganesh Alvarado MD [address] [place] [address] Social History Tobacco Use Types Packs/Day Years [...]
--- OUTSIDE RECORDS SUMMARY | 2025-03-06 09:45 | XMS_ITS | Encounter Summary ---
Author Organization [employer] Address [address] [place] [address] 7 [place] [address] Care Team Providers Care Poll Watcher Name Role Phone Ganesh Alvarado MD Primary Care Provider [phone] Reason for Visit * Reason Comments Med Refill Encounter Details Date Type Department Care Team ([facility] st Contact Info) Description 06/08/2023 Refill [facility] CHC MED & PEDS [address] [place] [address] Ganesh Alvarado MD [address] [place] [address] Social History Tobacco Use Types Packs/Day Years [...] on filedocumented in this encounter Care Teams Poll Watcher Relationship Specialty Start Date End Date Ganesh Alvarado MD [address] [place] [address] PCP - General Internal Medicine 12/21/17 09/05/23 documented as of this encounter
--- OUTSIDE RECORDS SUMMARY | 2025-03-06 09:45 | XMS_ITS | Encounter Summary ---
Author Organization [employer] Address [address] [place] [address] 7 [place] [address] Care Team Providers Care Senior Relationship Manager Name Role Phone Unavailable Primary Care Provider Unavailabl e Reason for Visit * Reason Comments Med Refill Encounter Details Date Type Department Care Team ([facility] st Contact Info) Description 05/06/2024 Refill [facility] CHC MED & PEDS [address] [place] [address] Ganesh Alvarado MD [address] [place] [address] Social History Tobacco Use Types Packs/Day Years [...]
--- OUTSIDE RECORDS SUMMARY | 2025-03-06 09:45 | XMS_ITS | Encounter Summary ---
Author Organization [employer] Address [address] [place] [address] 7 [place] [address] Care Team Providers Care Rn Provider Relations Name Role Phone Unavailable Primary Care Provider Unavailabl e Reason for Visit * Reason Comments Med Refill Encounter Details Date Type Department Care Team ([facility] st Contact Info) Description 11/02/2023 Refill [facility] CHC MED & PEDS [address] [place] [address] Ganesh Alvarado MD [address] [place] [address] Social History Tobacco Use Types Packs/Day Years [...]
== END 2025-03-06 10:08 | disposition home or self-care (01) ==
LOC: HO.ENCR 09:02
PROVIDERS: PCP Internal Medicine; Visit Provider Physician Assistant Medical
DX: E11.65 Type 2 diabetes mellitus with hyperglycemia (principal); I42.9 Cardiomyopathy, unspecified; I48.91 Unspecified atrial fibrillation; I10 Essential (primary) hypertension

== ENCOUNTER → 2025-03-06 09:01 | Outpatient (BNVA) | payer OTHER, SELFPAY | PROVIDERS: PCP Internal Medicine; Visit Provider Physician Assistant Medical | DX: E11.9 Type 2 diabetes mellitus without complications (principal) ==

== ENCOUNTER 2025-03-06 09:54 | Emergency (ER) | payer OTHER, SELFPAY ==
[2025-03-06] VITALS (12 sets, daily range): BP systolic 113–161; BP diastolic 46–91; PULSE 60–146; RESP 12–21; TEMP 36.8–37; O2SAT 97–100; BMI 32.7
--- NOTE | ~2025-03-06 | XR_ITS ---
EXAMINATION: XR CHEST 1 VIEW HISTORY: chest pain, dyspnea, Afib COMPARISON: Comparison is made with the prior examination dated 10/01/2024. FINDINGS: A single AP portable view of the chest performed at 11:40 AM is submitted. The lungs are expanded and clear. There is no pleural effusion, pneumothorax, or pulmonary vascular congestion. The heart remains enlarged. There is degenerative disc disease of the spine. XR/XR chest 1V IMPRESSION: Cardiomegaly. No acute cardiopulmonary abnormality. Electronically signed by: Kofi Ohara MD 03/06/2025 11:50 AM EDT
--- NOTE | 2025-03-06 09:57 | ECG_ITS ---
Test Reason : palpatations Blood Pressure : */* mmHG Vent. Rate : 127 BPM Atrial Rate : 258 BPM P-R Int : * ms QRS Dur : 124 ms QT Int : 362 ms P-R-T Axes : 100 269 -20 degrees QTcB Int : 526 ms Atrial flutter Right bundle branch block Possible Lateral infarct Inferior infarct Abnormal ECG When compared with ECG of 01-Oct-2024 09:15, Atrial flutter present Referred By: Generic ED Physician Electronically Signed By: Darrick Navarro
--- NOTE | 2025-03-06 10:10 | ED_ITS ---
HPI - General Adult General Chief complaint: Arrhythmia/Palpitations Stated complaint: elevaed HR Time Seen by Provider: 03/06/25 10:10 History of Present Illness ED Provider: Griffin LIND narrative: The patient is a 70-year-old woman with a history of atrial fibrillation. Her atrial fibrillation is managed with the diltiazem and metoprolol and is on anticoagulation with apixaban. She also has a history of type 2 diabetes and uses insulin. The patient had an appointment at the endocrinology office this morning to discuss management of her diabetes. At the office appointment she complained of feeling weak and dizzy and also mentioned that she had not taken her diltiazem or metoprolol for the last couple of weeks because she had run out of medication and had not gotten a refill. At the endocrinology office she was found to have a heart rate of 136 beats per minute. She was therefore sent to the emergency room. No fever, sweats, chills. Related Data Home Medications ?Medication ?Instructions ?Recorded ?Confirmed apixaban 5 mg tablet (Eliquis) 5 mg PO BID 10/01/24 Previous Rx's ?Medication ?Instructions ?Recorded lancets 33 gauge (OneTouch Delica #100 ea 01/22/23 Plus Lancet) blood pressure test kit-large #1 ea 04/23/23 rosuvastatin 40 mg tablet 40 mg PO DAILY 90 days #90 t abs 11/07/23 blood-glucose meter (OneTouch #1 ea 11/19/23 Ultra2 Meter) air conditioner #1 ea 01/13/24 incontinence pad, liner, disp #120 ea 01/13/24 lancets 28 gauge (FreeStyle #100 ea 03/12/24 Lancets) balance #1 ea 04/14/24 cholecalciferol (vitamin D3) 50 50 mcg PO DAILY #28 ca ps 06/23/24 mcg (2,000 unit) capsule (Vitamin D3) nebulizers #1 ea 07/02/24 Grab bar #1 ea 09/02/24 diltiazem HCl 120 mg 120 mg PO DAILY #90 caps 11/23 capsule,extended release 24 hr (Cardizem CD) metoprolol succinate 50 mg 50 mg PO DAILY #90 tabs 11/23 tablet,extended release 24 hr levothyroxine 137 mcg tablet 137 mcg PO DAILY@0600 #30 tabs 10/14/24 triamcinolone acetonide 0.1 % 1 appl topical DAILY #15 grams 10/17/24 topical cream Ventolin HFA 90 mcg/actuation 2 puff inhalation Q6H VA N 11/28/24 aerosol inhaler (albuterol sulfate) shortness of breat h or wheezing 30 days #8 grams blood-glucose,ems director,cont #1 ea 11/28/24 (Dexcom G7 [employer]orer) glucose 4 gram chewable tablet 16 g (4 x 4 gram) PO Q1 5M PRN 11/28/24 (Dex4 Glucose) hypoglycemia (hipoglucemia) #10 tabs tramadol 50 mg tablet 50 mg PO Q6H PRN severe pain 12/04/24 (scale score 7-10) #12 tabs lidocaine 5 % topical patch 2 patch topical DAILY #30 ea 01/09/25 oxycodone 5 mg tablet 5 mg PO Q6H PRN pain #10 tab s 01/09/25 Dexcom G7 Sensor (blood-glucose #3 ea 01/13/25 sensor) incontinence pad, liner, disp #264 ea 02/06/25 latex gloves (Latex Gloves, Large) #240 ea 02/06/25 underpads (Bed Underpads) #300 ea 02/06/25 wipes flushable #240 ea 02/06/25 dulaglutide 3 mg/0.5 mL 3 mg (0.5 mL) subcut QWEEK # 2 mL 02/24/25 subcutaneous pen injector ([facility]) blood sugar diagnostic (OneTouch #100 ea 02/27/25 Ultra Test strips) insulin degludec 100 unit/mL (3 14 unit (0.14 mL) subc ut DAILY 03/02/25 mL) subcutaneous pen (Tresiba #12.6 mL FlexTouch U-100 insulin) insulin lispro 100 unit/mL 10 unit (0.1 mL) subcut TID 03/02/25 subcutaneous pen (Humalog ik #27 mL (U-100) Insulin) diltiazem HCl 120 mg 120 mg PO DAILY #30 caps 11/23 capsule,extended release 24 hr (Cartia XT) metoprolol succinate 50 mg 50 mg PO DAILY #30 tabs 11/23 tablet,extended release 24 hr Allergies Allergy/AdvReac Type Severity Reaction Status Date / Time empagliflozin (From Allergy Intermediate ITCHY/RASH Verified 03/06/25 10:11 JARDIANCE) JARDIANCE Allergy Intermediate pruritus Uncoded 03/06/25 10:11 Review of Systems 2 Review of Systems: Yes all other systems are reviewed and are negative [facility] Past Medical History Medical History Atrial fibrillation Hypothyroidism Asthma Pericardial effusion Pneumonitis Pleural effusion Hypoglycemia unawareness associated with type 2 diabetes mellitus Post-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 Mother Arthritis Social History Social History Household Members: Spouse and Children Housing: Apartment Do you presently have visiting nurse or other home services: Yes (Daughter is [employer]) Alcohol intake: never Patient Tobacco Use Status: Never used Tobacco e-Cigarette/Vaping Use: Never Used Second Hand Smoke Exposure: No service: No Current occupational status: disabled Cognitive needs: No Hearing needs: No Vision needs: No Physical Exam ED Vital Signs: Vital Signs - 24 hr 03/06/25 10:10 03/06/25 10:26 03/06/25 10:36 Temperature 98.2 F 98.2 F Pulse Rate 135 H 133 H 130 H Respiratory Rate 21 H 12 Blood Pressure 144/91 H 154/87 H 154/87 H Pulse Oximetry 99 98 Oxygen Delivery Method Room Air Room Air 03/06/25 10:40 03/06/25 11:28 03/06/25 11:42 Temperature Pulse Rate 146 H 135 H 144 H Respiratory Rate 15 Blood Pressure 154/87 H 161/89 H Pulse Oximetry 100 Oxygen Delivery Method Room Air 03/06/25 12:00 03/06/25 12:26 03/06/25 12:38 Temperature 98.2 F 98.6 F Pulse Rate 133 H 133 H 60 Respiratory Rate 16 16 Blood Pressure 139/91 H 134/84 134/84 Pulse Oximetry 100 97 Oxygen Delivery Method Room Air Room Air 03/06/25 14:00 03/06/25 14:37 Temperature 98.2 F 98.2 F Pulse Rate 60 60 Respiratory Rate 12 12 Blood Pressure 113/46 L 113/46 L Pulse Oximetry 97 97 Oxygen Delivery Method Room Air Room Air BMI result Body Mass Index 32.7 Const Other: The patient is 62-year-old woman who is awake and alert. She looks mildly unwell but not severely so or acutely ill. Orientation/consciousness: patient oriented x3 HENMT Other: The face is symmetrical. Mucous membranes moist. Eyes Other: Pupils are round equal, conjunctivae are clear, extraocular movements intact Neck Neck: Yes full ROM and Yes no JVD Resp Effort & Inspection: normal respiratory effort Auscultation: clear to auscultation bilaterally Cardio Other: The patient had a rapid irregular heart rate. No murmur heard. GI Other: Abdomen is soft and nontender Skin Other: The skin is dry and unremarkable Neuro General: patient oriented x3, tone normal, moves all extremities, no focal motor deficits and CN's II-XI intact bilaterally Extrem Other: There is no calf swelling or tenderness. No asymmetry. No peripheral edema. Medications Administered Discontinued Medications Generic Name Dose Route Start Last Admin Trade Name Freq PRN Reason Stop Dose Admin Diltiazem HCl 120 mg 03/06/25 10:17 03/06/25 11:28 Diltiazem Hcl Cd 120 Mg Cap.Er.Deg PO 03/06/25 10:18 120 mg ONCE ONE Administration Protocol Diltiazem HCl 20 mg 03/06/25 10:20 03/06/25 10:36 Diltiazem Hcl 50 Mg/10 Ml Vial IVPUSH 03/06/25 10:21 20 mg ONCE ONE Administration Diltiazem HCl 25 mg 03/06/25 12:23 03/06/25 12:26 Diltiazem Hcl 50 Mg/10 Ml Vial IVPUSH 03/06/25 12:24 25 mg ONCE ONE Administration Metoprolol Succinate 50 mg 03/06/25 10:17 03/06/25 10:40 Metoprolol Succinate Er 50 Mg Tab.Er.24h PO 03/06/25 10:18 50 mg ONCE ONE Administration Protocol Medical Decision Making Medical Decision Making [facility] Narrative: the patient is a 70-year-old woman with a history of a cardiomyopathy and history of atrial fibrillation who is supposed to be taking diltiazem CD 120 mg daily, 50 mg metoprolol succinate daily, and apixaban in addition to other medications. Apparently she ran out of her metoprolol and diltiazem over a month ago. she has continued to take her apixaban on other medications apparently. I cannot entirely explain why she has not succeeded in getting a refill of her medications. In any event she arrived in atrial fibrillation with rapid ventricular response which I think is probably subacute. She went to an endocrinology office visit this morning where she was found to be tachycardic and complaining of dizziness and was referred to the Emergency room. She was given IV diltiazem 20 mg as well as her usual oral doses of 120 mg of diltiazem CD and 50 mg of metoprolol succinate. She was observed. She remained tachycardic. She was then given a 2nd dose of intravenous diltiazem, the 2nd dose being 25 mg. After the 2nd dose her heart rate came down to the 70s. She looked and felt better. I do not think she requires hospitalization as I think this is simply a failure of compliance with her appropriate medication regimen. I believe her home planning consultant salesperson is Dr. Pal of [facility] cardiology office. The patient will be given 1 month supply of the diltiazem tablets and the metoprolol succinate tablets. She is advised to make follow-up appointments with her home planning consultant salesperson and her PCP to try to ensure she does not run out of medications in a similar fashion in the future. Lab Data 03/06/25 10:52 03/06/25 11:57 Labs: Lab Results 03/06/25 03/06/25 Range/Units 10:52 11:57 WBC 9.1 (4.8-10.8) X10*3/uL RBC 6.41 H (4.20-5.50) X10*6/uL Hgb 11.8 L (12.0-16.0) g/dl Hct 38.7 (37.0-47.0) % MCV 60.4 L (80.0-98.0) fL MCH 18.4 L (27.0-33.0) pg MCHC 30.5 L (31.0-35.0) g/dl RDW 18.1 H (11.0-16.0) % Plt Count 377 (160-400) X10*3/uL MPV TNP Immature Gran % (Auto) 0.2 (0.0-0.4) % Neut % (Auto) 68.6 (45-73) % Lymph % (Auto) 26.8 (20-40) % Izard % (Auto) 3.6 (2-11) % Eos % (Auto) 0.1 (0-4) % Baso % (Auto) 0.7 (0-2) % Lymph # (Auto) 2.4 (1.2-4.9) X10*3/uL Izard # (Auto) 0.3 (0.1-1.2) X10*3/uL Eos # (Auto) 0.0 (0.0-0.4) X10*3/uL Baso # (Auto) 0.1 (0.0-0.2) X10*3/uL Abs Immat Gran (auto) 0.02 (0.00-0.03) X10*3/uL Absolute Neuts (auto) 6.2 (2.0-8.3) x10*3/uL Absolute Nucleated RBC 0.000 (0.0-0.012) X10*3/uL Nucleated RBC % (auto) 0.0 (0.0-0.2) /100WBC Sodium 144 (135-145) mmol/L Potassium 3.4 (3.3-5.1) mmol/L Chloride 103 (96-108) mmol/L Carbon Dioxide 29 (22-29) mmol/L Anion Gap 15 (12-20) BUN 8 L (9-16) mg/dL Creatinine 0.84 (0.5-1.4) mg/dL Estim Creat Clear Calc 60.8 Estimated GFR > 60 Random Glucose 179 H (60-115) mg/dL Calcium 9.9 D (8.4-10.2) mg/dL Magnesium 1.7 (1.6-2.6) mg/dL Total Bilirubin 0.4 (0.0-1.0) mg/dL Direct Bilirubin 0.1 (0.0-0.5) mg/dL AST 24 (5-31) U/L ALT 10 (0-31) U/L Alkaline Phosphatase 114 (39-117) U/L Troponin I High Sens 6.5 D (<3.5-17.0) ng/L B-Natriuretic Peptide 115 H (<100) pg/mL Total Protein 8.1 H (6.5-8.0) g/dL Albumin 4.5 (3.5-5.0) g/dL Ethyl Alcohol < 10 mg/dL Discharge Plan Discharge Clinical Impression: Atrial fibrillation with rapid ventricular response Patient Disposition: Home, Self-Care Additional Instructions: I have sent prescriptions for the medications which help keep your heart rate from going too fast. These prescriptions are diltiazem and metoprolol. I have sent these prescriptions to the [facility] on [facility] in [place]. You have received your daily dose of each of these today. Please start taking these medications tomorrow. Also continue your other medications including your apixaban. Please follow up with your home planning consultant salesperson and your primary care doctor soon. Please discuss the fact that you had run out of these medications and that you went so long without them. My hope is you can come up with a plan so that you do not run out of these medications again. You need to be always taking these medications so that your heart rate does not go so fast. I believe that your home planning consultant salesperson is Dr. Pal at [address] [place] [address] in [place]. Please contact the office for a follow up appointment soon. Also follow up with your regular doctor. Return to the emergency room if significantly worse. Prescriptions: New diltiazem HCl [Cartia XT] 120 mg capsule,extended release 24hr 120 mg PO DAILY Qty: 30 0RF metoprolol succinate 50 mg tablet extended release 24 hr 50 mg PO DAILY Qty: 30 0RF No Action (DME) lancets [OneTouch Delica Plus Lancet] [facility] See Rx Instructions .ROUTE .COMPLEX Qty: 100 0RF Dose Instruction: USE TO TEST BLOOD SUGAR FOUR TIMES DAILY Rx Instructions: USE TO TEST BLOOD SUGAR FOUR TIMES DAILY (DME) blood pressure test kit-large Kit See Rx Instructions .Route Qty: 1 0RF Rx Instructions: As directed rosuvastatin 40 mg tablet 40 mg PO DAILY 90 Days Qty: 90 2RF (DME) blood-glucose meter [bead Buttonuch Ultra2 Meter] [facility] See Rx Instructions .Route Qty: 1 0RF Rx Instructions: As directed test 4 times a day (DME) air conditioner See Rx Instructions .Route .MEDSUPPLY Qty: 1 0RF Rx Instructions: As directed (DME) incontinence pad, liner, disp Pad See Rx Instructions .Route Qty: 120 11RF Rx Instructions: Use 1 pad every 6 hours as needed (DME) lancets [FreeStyle Lancets] 28 gauge misc See Rx Instructions .Route Qty: 100 4RF Rx Instructions: As directed test 4X a day cholecalciferol (vitamin D3) [Vitamin D3] 50 mcg (2,000 unit) capsule 50 mcg PO DAILY Qty: 28 3RF (DME) nebulizers Misc See Rx Instructions .Route Qty: 1 0RF Rx Instructions: As directed (DME) Grab bar Misc See Rx Instructions .Route Qty: 1 0RF Rx Instructions: As directed albuterol sulfate [Ventolin HFA] 90 mcg/actuation HFA aerosol inhaler 2 puff inhalation Q6H PRN (Reason: shortness of breath or wheezing) 30 Days Qty: 8 1RF (DME) Dexcom G7 Sensor Device See Rx Instructions .Route Qty: 3 11RF Rx Instructions: As directed change every 10 days (DME) wipes flushable See Rx Instructions .Route .MEDSUPPLY Qty: 240 11RF Rx Instructions: As directed (DME) underpads [Bed Underpads] Pad See Rx Instructions .Route Qty: 300 11RF Rx Instructions: As directed (DME) latex gloves [Latex Gloves, Large] Misc See Rx Instructions .Route Qty: 240 11RF Rx Instructions: As directed (DME) incontinence pad, liner, disp Pad See Rx Instructions .Route Qty: 264 11RF Rx Instructions: As directed Trulicity 3 mg/0.5 mL pen injector 3 mg subcut QWEEK Qty: 2 2RF (DME) OneTouch Ultra Test Strip See Rx Instructions .ROUTE .COMPLEX Qty: 100 4RF Dose Instruction: USE TO TEST BLOOD SUGAR FOUR TIMES PER DAY Rx Instructions: USE TO TEST BLOOD SUGAR FOUR TIMES PER DAY insulin degludec [Tresiba FlexTouch U-100] 100 unit/mL (3 mL) insulin pen 14 unit subcut DAILY 90 Days Qty: 12.6 1RF insulin lispro [Humalog KwikPen Insulin] 100 unit/mL insulin pen 10 unit subcut TID 90 Days Qty: 27 1RF Eliquis 5 mg tablet 5 mg PO BID metoprolol succinate 50 mg Tablet Extended Release 24 Hr 50 mg PO DAILY Qty: 90 0RF Protocol: Hold for SBP/HR < HOLD for SBP < : 90 HOLD for HR < : 60 diltiazem HCl [Cardizem CD] 120 mg Capsule,Extended Release 24hr 120 mg PO DAILY Qty: 90 0RF Protocol: Hold for SBP/HR < HOLD for SBP < : 90 HOLD for HR < : 60 oxycodone 5 mg tablet 5 mg PO Q6H PRN (Reason: pain) Qty: 10 0RF Rx Instructions: Partial Fill upon patient request. lidocaine 5 % adhesive patch,medicated 2 patch topical DAILY Qty: 30 0RF Rx Instructions: leave on most painful area for up to 12 hrs (DME) balance See Rx Instructions .Route .MEDSUPPLY Qty: 1 0RF Rx Instructions: As directed triamcinolone acetonide 0.1 % cream 1 appl topical DAILY Qty: 15 0RF tramadol 50 mg tablet 50 mg PO Q6H PRN (Reason: severe pain (scale score 7-10)) Qty: 12 0RF levothyroxine 137 mcg tablet 137 mcg PO DAILY@0600 Qty: 30 9RF (DME) Dexcom G7 [employer]orer Misc See Rx Instructions .Route Qty: 1 0RF Rx Instructions: As directed glucose [Dex4 Glucose] 4 gram tablet,chewable 16 g PO Q15M PRN (Reason: hypoglycemia (hipoglucemia)) Qty: 10 3RF Rx Instructions: until blood sugar is >70 (hasta que el nivel de azucar en yosef sea superior a 70) Referrals: Aroldo Pal MD [Physician, Cardiology] Referral Note: Patient ran out of rate control medJo Pollard MD [Primary Care Provider, Internal Medicine] Interventions: ED Discharge Assessment Last Done: 03/06/25 14:37 Discharge Date/Time: 03/06/25 14:37 Print Language: Frisian
--- NOTE | 2025-03-06 10:28 | PC.NURSE ---
Pt BIBA and seen by provider on arrival. HR RVR afib 130's. IV inserted and pt connected to full monitor- Pt voided on commode on arrival mod amounts clr light yellow urine. No complaints other than rapid HR at this time.
[2025-03-06] MEDS: Metoprolol Succinate ER 50 MG TAB.ER.24H PO (10:40)
[2025-03-06 10:58] LABS: MANUAL DIFF FLAG NO
[2025-03-06 11:12] LABS: Hematocrit 38.7 % (37.0-47.0); Hemoglobin 11.8 g/dl (12.0-16.0); Imm Gran Abs Auto 0.02 X10*3/uL (0.00-0.03); Imm Gran Pct Auto 0.2 % (0.0-0.4); Lymphocytes Absolute Auto 2.4 X10*3/uL (1.2-4.9); Mean Corpuscular HGB Conc 30.5 g/dl (31.0-35.0); Mean Corpuscular Hemoglobin 18.4 pg (27.0-33.0); NRBC Abs Auto 0.000 X10*3/uL (0.0-0.012); NRBC Pct Auto 0.0 /100WBC (0.0-0.2); Platelet Count 377 X10*3/uL (160-400); Red Blood Count 6.41 X10*6/uL (4.20-5.50); White Blood Count 9.1 X10*3/uL (4.8-10.8)
[2025-03-06 11:13] LABS: Mean Corpuscular Volume 60.4 fL (80.0-98.0)
[2025-03-06 11:18] LABS: B Type Natriuretic Peptide 115 pg/mL (<100)
[2025-03-06] MEDS: dilTIAZem HCL CD 120 MG CAP.ER.DEG PO (11:28)
--- NOTE | 2025-03-06 11:34 | PC.NURSE ---
Received reprt, pt lying on stretcher talking on cell phone, no apparent distress. patient monitor in place, HR 133. Pt medicated w/ antiarrythmic as ordered
[2025-03-06 12:18] LABS: Alanine Aminotransferase 10 U/L (0-31); Albumin Level 4.5 g/dL (3.5-5.0); Alkaline Phosphatase 114 U/L (39-117); Anion Gap 15 (12-20); Aspartate Amino Transferase 24 U/L (5-31); Blood Urea Nitrogen 8 mg/dL (9-16); Calcium 9.9 mg/dL (8.4-10.2); Carbon Dioxide 29 mmol/L (22-29); Chloride 103 mmol/L (96-108); Creatinine Clr Calc Pharmacy 60.8; Estimated Glomerular Filt Rate > 60; Magnesium 1.7 mg/dL (1.6-2.6); Potassium 3.4 mmol/L (3.3-5.1); Sodium 144 mmol/L (135-145); Total Protein 8.1 g/dL (6.5-8.0)
[2025-03-06 12:25] LABS: Troponin-I High Sensitivity 6.5 ng/L (<3.5-17.0)
--- NOTE | 2025-03-06 13:11 | MHC.CM.ED ---
Received case management consult from Dr Moya. Patient came to the ER from her endocrinology office visit due to elevated heart rate. Patient reports running out of lopressor and cardizem 2 weeks ago. Patient uses [facility] and [facility], both on [address] Per [facility], these meds were never filled with their pharmacy. Per [facility], patient picked up 90 day supplies of both meds on 10/04. Met with patient and translator interpreter in regards to medication. Patient states when she was d/c'd from the hospital, the nurse told her to take those meds as prescribed and then stop them when they're gone. Patient did not disccus these medications with her automatic maintainer or PCP. Dr Moya will be asked to send these RX to [facility]. Patient educated on ordering refills from pharmacy, automatic maintainer and PCP. Patient verbalizes understanding. Dr Moya and Alyssia RN made aware. Continue to monitor for d/c needs.
== END 2025-03-06 14:37 | disposition home or self-care (01) ==
PROVIDERS: Emergency Provider Emergency Medicine; PCP Internal Medicine
DX: I48.91 Unspecified atrial fibrillation (principal); Z79.01 Long term (current) use of anticoagulants; E11.9 Type 2 diabetes mellitus without complications; Z79.4 Long term (current) use of insulin; R42 Dizziness and giddiness
CPT/HCPCS: 36415; 71045; 80048; 80076; 80307; 82947; 83735; 83880; 84484; 85025; 93005; 96374; 96376; 99212; 99285; J1163

== ENCOUNTER → 2025-03-06 09:57 | Outpatient (BNV) | payer OTHER, SELFPAY | PROVIDERS: Emergency Provider Emergency Medicine; PCP Internal Medicine; Visit Provider Internal Medicine Cardiovascular Disease | DX: I48.92 Unspecified atrial flutter (principal); I45.10 Unspecified right bundle-branch block | CPT/HCPCS: 93010 ==

== ENCOUNTER → 2025-03-06 11:40 | Outpatient (BNV) | payer OTHER, SELFPAY | PROVIDERS: Emergency Provider Emergency Medicine; PCP Internal Medicine; Visit Provider Radiology Diagnostic Radiology | DX: I51.7 Cardiomegaly (principal) | CPT/HCPCS: 71045 ==

== ENCOUNTER 2025-03-25 08:54 | Outpatient (AMB) | payer OTHER, SELFPAY ==
--- NOTE | 2025-03-25 10:02 | A.OFFVIS_ITS ---
Intake Intake Visit Reasons: 60 min Digital Research Analyst Required: Yes Digital Research Analyst Language: Protocol Officer Name: [place] [facility] Accompanied by: Self / Same As Patient Allergies empagliflozin (From JARDIANCE) Allergy (Intermediate, Verified 03/06/25 10:11) ITCHY/RASH [place] Allergy (Intermediate, Uncoded 03/06/25 10:11) pruritus HPI Comprehensive Diabetes Asmnt Most Recent Diabetes Results: Creatinine, (0.5-1.4) 0.84 mg/dL 03/06/25 BUN, (9-16) 8 mg/dL L 03/06/25 Sodium, (135-145) 144 mmol/L 03/06/25 Potassium, (3.3-5.1) 3.4 mmol/L 03/06/25 Chloride, (96-108) 103 mmol/L 03/06/25 Carbon Dioxide, (22-29) 29 mmol/L 03/06/25 Calcium, (8.4-10.2) 9.9 mg/dL Δ 03/06/25 AST, (5-31) 24 U/L 03/06/25 ALT, (0-31) 10 U/L 03/06/25 Total Protein, (6.5-8.0) 8.1 g/dL H 03/06/25 Albumin, (3.5-5.0) 4.5 g/dL 03/06/25 PFSH Medical History Atrial fibrillation Hypothyroidism Asthma Pericardial effusion Pneumonitis Pleural effusion Hypoglycemia unawareness associated with type 2 diabetes mellitus Post-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 Mother Arthritis Social History Household Members: Spouse and Children Housing: Apartment Do you presently have visiting nurse or other home services: Yes (Daughter is CONVERTIBLE SOFA BEDSPRING TESTER) Alcohol intake: never Patient Tobacco Use Status: Never used Tobacco e-Cigarette/Vaping Use: Never Used Second Hand Smoke Exposure: No service: No Current occupational status: disabled Cognitive needs: No Hearing needs: No Vision needs: No Assessment & Plan Assessment & Plan (1) Diabetes type 2, uncontrolled: Code(s): E11.65 - Type 2 diabetes mellitus with hyperglycemia Qualifiers: Glycemic state: with hyperglycemia Qualified Code(s): E11.65 - Type 2 diabetes mellitus with hyperglycemia Plan: Pt at visit forCeQue Simplicity Info Reviewed CeQue patch, medicine technologist, vial of mealtime insulin and change by stickers Demonstrated for patient how to fill syringe from vial, and insert, needle to fill patch Lock patch by clicking buttons on each side until the will no longer click To prime patch proceed with 4 clicks Apply placed sticker, to patch, count forward 4 days Prepare site where you will place patch with either alcohol or soap and water, avoid waist band and belt line Do not insert through scar tissue, piercings and tattoos be sure to place patch at least 2 in from belly button. Instructed patient to be sure to rotate patch regularly Demonstrated how to insert patch Push Green button until you hear a click Instructed patient not to unlock green button until medicine technologist is against prepared site Squeeze at both ends a blue cap and carefully began to pull cap, this should also remove adhesive pad liner. Be cautious of exposed needle, check to make sure needle is not bent Please patch on your body, slide yellow safety and press green button down Press medicine technologist firmly for 10 seconds, remove medicine technologist by lifting it away To remove needle squeeze clear sides of overedge sewer at the base Discard needle in sharps container Press down firmly on patch with palm of your hand for 10 seconds Patient left visit with CeQue patch in place Instructed patient on how to administer mealtime insulin, instructed patient that each click is equal to 2 units of mealtime insulin Patient will follow-up with peer educator as instructed Instructions: Wash your hands Lock patch by clicking buttons on each side until the will no longer click Fill syringe from vial up to recommended units. Insert, needle into blue hole to fill patch To prime patch proceed with 4 clicks Apply placed sticker, to patch, count forward 4 days Prepare site where you will place patch with either alcohol or soap and water, avoid waist band and belt line Do not insert through scar tissue, piercings and tattoos be sure to place patch at least 2 in from belly button. If you have excess body hair adhesive will attach better to clean shaven skin Place patch in medicine technologist while holding medicine technologist with both hands use thumbs to push down on blue cap in on patch Squeeze at both ends a blue cap and carefully began to pull cap, this should also remove adhesive pad liner. Be cautious of exposed needle, check to make sure needle is not bent Do not to push green button until medicine technologist is against prepared site Place patch on your body, slide yellow safety and press green button down Push until you hear a click Press medicine technologist firmly for 10 seconds, remove medicine technologist by lifting it away To remove needle squeeze clear sides of overedge sewer at the base Discard needle in sharps container Press down firmly on patch with palm of your hand for 10 seconds Be sure to rotate patch regularly 1 clicks equals 2 units Reviewed Introduction to Nutrition Importance of healthy diet in managing DM Diet is personalized to individual preference Review patient?s regular diet/food preferences Who prepares meals/does food shopping/ Dining out?/ Barriers? How diet effects glucose Eating 3 balanced meals a day with small, healthy snacks between meals Review food groups Carbohydrates: What is a carbohydrate/Which food/food groups are considered carbohydrates Effect of carbohydrates on blood glucose Portion sizes Reading food labels Basic carb counting (if applicable per nursing assessment) Plate method Meal planning Recommendations: Follow plate method, consistent carbs and read nutritional labels. Called general pharmacy to confirm that patient is receiving lispro. microbiology quality control technician reports that last time patient picked it up was on 03/04/2025 Patient will consider using the insulin delivery patch, and discuss at visit in 2 months Portions of this note were created using voice recognition software, please excuse any words or phrases that may have been misinterpreted. Coding Level of Care Code Est Pt Level 1 (93362) Diagnoses Uncontrolled type 2 diabetes mellitus with hyperglycemia E11.65 Glycemic state: with hyperglycemia
--- OUTSIDE RECORDS SUMMARY | 2025-03-25 10:27 | XMS_ITS | Clinical Summary ---
Author Organization [employer] Address [address] [place] [address] 7t [place] [address] Care Team Providers Care Stud Sheep Farmer Name Role Phone Unavailable Primary Care Provider [...] complication, with long-term current use of insulin ([facility]) INJETAR 20 UNIDADES SUBCUTANEAS TEDDY VEZ [...] 239 mg/dL HDL Cholesterol 41 mg/dL [facility] Comment: Desirable HDL: greater than [...] >60 [facility] Comment: NOTE: For -Latvian individuals, multiply the result by 1.210. Chronic [...] ORDERABLE LABS Final Result Performing Organization Address City/State/[facility] Co de Phone Number [facility] [address] [place] [address] * Mammography Report 1 (05/04/2020 9:06 AM [...] Recently Relevant to Health Maintenance Insurance [place] [address] [place] [phone]
--- OUTSIDE RECORDS SUMMARY | 2025-03-25 10:28 | XMS_ITS | Encounter Summary ---
Author Organization [employer] Address [address] [place] [address] 7 [place] [address] Care Team Providers Care Clay Maker Name Role Phone Unavailable Primary Care Provider Unavailabl e Reason for Visit * Reason Comments Med Refill Encounter Details Date Type Department Care Team ([facility] st Contact Info) Description 11/02/2023 Refill [facility] CHC MED & PEDS [address] [place] [address] Ganesh Alvarado MD [address] [place] [address] Social History Tobacco Use Types Packs/Day Years [...]
--- OUTSIDE RECORDS SUMMARY | 2025-03-25 10:28 | XMS_ITS | Encounter Summary ---
Author Organization [employer] Address [address] [place] [address] 7 [place] [address] Care Team Providers Care Fire Assistant Name Role Phone Unavailable Primary Care Provider Unavailabl e Reason for Visit * Reason Comments Med Refill Encounter Details Date Type Department Care Team ([facility] st Contact Info) Description 11/26/2024 Refill [facility] CHC MED & PEDS [address] [place] [address] Ganesh Alvarado MD [address] [place] [address] Social History Tobacco Use Types Packs/Day Years [...]
--- OUTSIDE RECORDS SUMMARY | 2025-03-25 10:28 | XMS_ITS | Encounter Summary ---
Author Organization [employer] Address [address] [place] [address] 7 [place] [address] Care Team Providers Care Forest Ecology Professor Name Role Phone Unavailable Primary Care Provider Unavailabl e Reason for Visit * Reason Comments Med Refill Encounter Details Date Type Department Care Team ([facility] st Contact Info) Description 07/29/2024 Refill [facility] CHC MED & PEDS [address] [place] [address] Ganesh Alvarado MD [address] [place] [address] Social History Tobacco Use Types Packs/Day Years [...]
--- OUTSIDE RECORDS SUMMARY | 2025-03-25 10:28 | XMS_ITS | Encounter Summary ---
Author Organization [employer] Address [address] [place] [address] 7 [place] [address] Care Team Providers Care Portable [place] Name Role Phone Unavailable Primary Care Provider Unavailabl e Reason for Visit * Reason Comments Med Refill Encounter Details Date Type Department Care Team ([facility] st Contact Info) Description 08/26/2024 Refill [facility] CHC MED & PEDS [address] [place] [address] Ganesh Alvarado MD [address] [place] [address] Social History Tobacco Use Types Packs/Day Years [...]
--- OUTSIDE RECORDS SUMMARY | 2025-03-25 10:28 | XMS_ITS | Encounter Summary ---
Author Organization [employer] Address [address] [place] [address] 7 [place] [address] Care Team Providers Care Record Press Supervisor Name Role Phone Unavailable Primary Care Provider Unavailabl e Reason for Visit * Reason Comments Med Refill Encounter Details Date Type Department Care Team ([facility] st Contact Info) Description 10/18/2023 Refill [facility] MED[facility] [address] [place] [address] Ganesh Alvarado MD [address] [place] [address] Social History Tobacco Use Types Packs/Day Years [...]
--- OUTSIDE RECORDS SUMMARY | 2025-03-25 10:28 | XMS_ITS | Encounter Summary ---
Author Organization [employer] Address [address] [place] [address] 7 [place] [address] Care Team Providers Care Weed Controller Name Role Phone Unavailable Primary Care Provider Unavailabl e Reason for Visit * Reason Comments Med Refill Encounter Details Date Type Department Care Team ([facility] st Contact Info) Description 01/17/2024 Refill [facility] CHC MED & PEDS [address] [place] [address] Ganesh Alvarado MD [address] [place] [address] Social History Tobacco Use Types Packs/Day Years [...]
--- OUTSIDE RECORDS SUMMARY | 2025-03-25 10:28 | XMS_ITS | Encounter Summary ---
Author Organization [employer] Address [address] [place] [address] 7 [place] [address] Care Team Providers Care Lead Javascript Engineer Name Role Phone Ganesh Alvarado MD Primary Care Provider [phone] Encounter Details Date Type Department Care Team ([facility] st Contact Info) Description 11/24/2022 Abstract [facility] CHC MED & PEDS [address] [place] [address] Ganesh Alvarado MD [address] [place] [address] Social History Tobacco Use Types Packs/Day Years [...] on filedocumented in this encounter Care Teams Lead Javascript Engineer Relationship Specialty Start Date End Date Ganesh Alvarado MD [address] [place] [address] PCP - General Internal Medicine 12/21/17 09/05/23 documented as of this encounter
--- OUTSIDE RECORDS SUMMARY | 2025-03-25 10:28 | XMS_ITS | Encounter Summary ---
Author Organization [facility] Address [address] [place] [address] 7 [place] [address] Care Team Providers Care Marketing Analyst Name Role Phone Ganesh Alvarado MD Primary Care Provider [phone] Reason for Visit * Reason Comments Med Refill Encounter Details Date Type Department Care Team (Late st Contact Info) Description 08/06/2023 Refill [facility] [address] [place] [address] Ganesh Alvarado MD [address] [place], [place] [id number] Social History Tobacco Use Types Packs/Day Years [...] on filedocumented in this encounter Care Teams Marketing Analyst Relationship Specialty Start Date End Date Ganesh Alvarado MD [address] [place] [address] PCP - General Internal Medicine 12/21/17 09/05/23 documented as of this encounter
--- OUTSIDE RECORDS SUMMARY | 2025-03-25 10:28 | XMS_ITS | Encounter Summary ---
Author Organization [employer] Address [address] [place] [address] 7 [place] [address] Care Team Providers Care Java Manager Name Role Phone Unavailable Primary Care Provider Unavailabl e Reason for Visit * Reason Comments Med Refill Encounter Details Date Type Department Care Team ([facility] st Contact Info) Description 06/04/2024 Refill [facility] CHC MED & PEDS [address] [place] [address] Ganesh Alvarado MD [address] [place] [address] Social History Tobacco Use Types Packs/Day Years [...]
--- OUTSIDE RECORDS SUMMARY | 2025-03-25 10:28 | XMS_ITS | Encounter Summary ---
Author Organization [employer] Address [address] [place] [address] 7 [place] [address] Care Team Providers Care Director Telehealth Name Role Phone Unavailable Primary Care Provider Unavailabl e Reason for Visit * Reason Comments Med Refill Encounter Details Date Type Department Care Team ([facility] st Contact Info) Description 07/01/2024 Refill [facility] CHC MED & PEDS [address] [place] [address] Ganesh Alvarado MD [address] [place] [address] Social History Tobacco Use Types Packs/Day Years [...]
--- OUTSIDE RECORDS SUMMARY | 2025-03-25 10:28 | XMS_ITS | Encounter Summary ---
Author Organization [employer] Address [address] [place] [address] 7 [place] [address] Care Team Providers Care Boat Tender Name Role Phone Unavailable Primary Care Provider Unavailabl e Reason for Visit * Reason Comments Med Refill Encounter Details Date Type Department Care Team ([facility] st Contact Info) Description 11/06/2023 Refill [facility] CHC MED & PEDS [address] [place] [address] Ganesh Alvarado MD [address] [place] [address] Social History Tobacco Use Types Packs/Day Years [...]
--- OUTSIDE RECORDS SUMMARY | 2025-03-25 10:28 | XMS_ITS | Encounter Summary ---
Author Organization [employer] Address [address] [place] [address] 7 [place] [address] Care Team Providers Care Bioinformatics Team Member Name Role Phone Unavailable Primary Care Provider Unavailabl e Reason for Visit * Reason Comments Med Refill Encounter Details Date Type Department Care Team ([facility] st Contact Info) Description 05/06/2024 Refill [facility] CHC MED & PEDS [address] [place] [address] Ganesh Alvarado MD [address] [place] [address] Social History Tobacco Use Types Packs/Day Years [...]
--- OUTSIDE RECORDS SUMMARY | 2025-03-25 10:28 | XMS_ITS | Encounter Summary ---
Author Organization [email or web address] Address [address] [place] [address] 7 [place] [address] Care Team Providers Care Sprinkler Installer Name Role Phone Unavailable Primary Care Provider Unavailabl e Reason for Visit * Reason Comments Med Refill Encounter Details Date Type Department Care Team ([facility] st Contact Info) Description 04/10/2024 Refill [facility] CHC MED & PEDS [address] [place] [address] Ganesh Alvarado MD [address] [place] [address] Social History Tobacco Use Types Packs/Day Years [...]
--- OUTSIDE RECORDS SUMMARY | 2025-03-25 10:28 | XMS_ITS | Encounter Summary ---
Author Organization [employer] Address [address] [place] [address] 7 [place] [address] Care Team Providers Care Chief Dog License Inspector Name Role Phone Unavailable Primary Care Provider Unavailabl e Reason for Visit * Reason Comments Med Refill Encounter Details Date Type Department Care Team ([facility] st Contact Info) Description 10/08/2024 Refill [facility] CHC MED & PEDS [address] [place] [address] Ganesh Alvarado MD [address] [place] [address] Social History Tobacco Use Types Packs/Day Years [...]
--- OUTSIDE RECORDS SUMMARY | 2025-03-25 10:28 | XMS_ITS | Encounter Summary ---
Author Organization [employer] Address [address] [place] [address] 7 [place] [address] Care Team Providers Care Film Waxer Name Role Phone Unavailable Primary Care Provider Unavailabl e Reason for Visit * Reason Comments Med Refill Encounter Details Date Type Department Care Team ([facility] st Contact Info) Description 04/09/2024 Refill [facility] CHC MED & PEDS [address] [place] [address] Ganesh Alvarado MD [address] [place] [address] Social History Tobacco Use Types Packs/Day Years [...]
--- OUTSIDE RECORDS SUMMARY | 2025-03-25 10:28 | XMS_ITS | Encounter Summary ---
Author Organization [employer] Address [address] [place] [address] 7 [place] [address] Care Team Providers Care Referral Agent Name Role Phone Ganesh Alvarado MD Primary Care Provider [phone] Reason for Visit * Reason Comments Med Refill Encounter Details Date Type Department Care Team ([facility] st Contact Info) Description 06/08/2023 Refill [facility] CHC MED & PEDS [address] [place] [address] Ganesh Alvarado MD [address] [place] [address] Social History Tobacco Use Types Packs/Day Years [...] on filedocumented in this encounter Care Teams Referral Agent Relationship Specialty Start Date End Date Ganesh Alvarado MD [address] [place] [address] PCP - General Internal Medicine 12/21/17 09/05/23 documented as of this encounter
== END 2025-03-25 10:05 | disposition home or self-care (01) ==
LOC: HO.ENCR 08:54
PROVIDERS: PCP Internal Medicine; Visit Provider Registered Nurse Diabetes Educator
DX: E11.65 Type 2 diabetes mellitus with hyperglycemia (principal)

== ENCOUNTER → 2025-03-25 08:54 | Outpatient (BNVA) | payer OTHER, SELFPAY | PROVIDERS: PCP Internal Medicine; Visit Provider Registered Nurse Diabetes Educator | DX: E11.65 Type 2 diabetes mellitus with hyperglycemia (principal); E11.649 Type 2 diabetes mellitus with hypoglycemia without coma; Z79.4 Long term (current) use of insulin | CPT/HCPCS: 99211 ==

== ENCOUNTER 2025-03-31 13:42 | Outpatient (AMB) | payer OTHER, SELFPAY ==
--- NOTE | 2025-03-31 13:44 | A.OFFVIS_ITS ---
Vital Signs 03/31/25 13:45 Height 5 ft 1 in Weight 176 lb 5.917 oz BMI 33.3 BP 114/60 Blood Pressure Location Rt brachial Position Sitting Pulse 63 Pulse Source Pulse Oximeter Pulse Oximetry (%) 99 Oxygen Delivery Method Room Air Intake Visit Reasons: T2DM Intake Note: Patient present today to follow up on Type 2 Diabetes Mellitus. Patient receives Dexcom G7 supplies through: [employer] Last Diabetic Eye exam: Pending appt Last Podiatry Visit: Does not see a Automotive Product Specialist Random Glucose: 216 mg/dL HgA1C: 8.6%, 03/31/2025 Claims Service Adjustor Required: Yes Claims Service Adjustor Language: Project Management Director Services: Claims Service Adjustor Present Claims Service Adjustor Name: LATASHA Zapata Allergies empagliflozin (From JARDIANCE) Allergy (Intermediate, Verified 03/06/25 10:11) ITCHY/RASH dulaglutide (From Trulicity) Adverse Reaction (Intermediate, Verified 03/31/25 14:13) Abdominal Pain JARDIANCE Allergy (Intermediate, Uncoded 03/06/25 10:11) pruritus Medication List - Last Reconciled 03/31/25 by ELLIOTT Bajwa [air conditioner As directed] apixaban (Eliquis) 5 mg PO BID [balance As directed] blood pressure test kit-large As directed blood sugar diagnostic (OneTouch Ultra Test strips) USE TO TEST BLOOD SUGAR FOUR TIMES PER DAY blood-glucose meter (YouStream Sport HighlightsTouch Ultra2 Meter) As directed test 4 times a day blood-glucose,jigger operator,cont (Dexcom G7 Entertainment Usher) As directed cholecalciferol (vitamin D3) (Vitamin D3) 50 mcg PO DAILY Dexcom G7 Sensor (blood-glucose sensor) As directed change every 10 days NS diltiazem HCl CD (Cardizem CD) 120 mg See Protocol PO DAILY diltiazem HCl CD (Cartia XT) 120 mg PO DAILY glucose (Dex4 Glucose) 16 grams (4 x 4 gram) PO Q15M PRN Grab bar As directed incontinence pad, liner, disp Use 1 pad every 6 hours as needed incontinence pad, liner, disp As directed insulin degludec (Tresiba FlexTouch U-100 insulin) 12 units subcut DAILY insulin lispro (Humalog KwikPen (U-100) Insulin) subcutaneously 3 times a day; lancets (OneTouch Delica Plus Lancet) USE TO TEST BLOOD SUGAR FOUR TIMES DAILY lancets (FreeStyle Lancets) As directed test 4X a day latex gloves (Latex Gloves, Large) As directed levothyroxine 137 mcg PO DAILY@0600 lidocaine 5% 2 patches topical DAILY metoprolol succinate ER 50 mg See Protocol PO DAILY metoprolol succinate ER 50 mg PO DAILY nebulizers As directed oxycodone 5 mg PO Q6H PRN rosuvastatin 40 mg PO DAILY 90 days tirzepatide (Mounjaro) 2.5 mg (0.5 mL) subcut QWEEK tramadol 50 mg PO Q6H PRN triamcinolone acetonide 0.1% 1 appl topical DAILY underpads (Bed Underpads) As directed Ventolin HFA 90 mcg/actuation (albuterol sulfate) 2 puffs inhalation Q6H PRN 30 days NS [wipes flushable As directed] HPI Comments Details: 70-year-old female with a past medical history of atrial fibrillation, cardiomyopathy, type 2 diabetes, anemia, hypertension, hyperparathyroidism and thyroid cancer presents for diabetic follow up. She is followed by Dr. Guo for thyroid cancer. Hemoglobin A1c today 03/31/25: 8.6% Reviewed Dexcom download from March 07 to March 20 G [place] 8.3% 34% very high 23% high 43% in range My interpretation is that she has blood sugars within target overnight, but she has hyperglycemia during the day and evening. She is also still having some low blood sugars overnight and provider relations representative. Current medications: Tresiba 14 units nightly, Humalog 8-5-8 units before meals, Trulicity 3 mg weekly She is not taking Trulicity. She did not have any weight loss with it, and she stopped it because it was causing abdominal pain. Past medications: Metformin discontinued due to diarrhea and lactic acidosis. Jardiance and Farxiga discontinued due to yeast infection. She has never been on Actos, but she had an echocardiogram this year which showed severe diastolic dysfunction and severely dilated left atrium. Complications: Neuropathy and nephropathy She is treated with rosuvastatin for hyperlipidemia. She was in AFib with RVR at her last appointment and sent to the ER. She had run out of her medications. She is about to run out of her metoprolol again. I sent a 1 month supply to her pharmacy and asked her to follow up with her motor patrol operator and primary care doctor for further refills. ROS: Constitutional: Denies fatigue, weight loss, weight gain, night sweats.. Eyes: No vision changes, blurry vision, double vision Respiratory: No shortness of breath Cardiovascular: Denies chest pain and palpitations Gastrointestinal: Nausea, vomiting or diarrhea or abdominal pain. Neurologic: No headache, numbness, tingling, weakness Physical exam: Constitutional: Alert, in no distress. Neck: Supple, Full range of motion. No lymphadenopathy. No palpable thyroid m asses. Respiratory: Clear to auscultation. Cardiovascular: S1 S2 regular. No murmurs. Neurologic: No focal neurological deficits. Extremities: Warm and well perfused. No clubbing, cyanosis. Trace bilateral ankle edema. Psychiatric: Normal mood and affect [facility] Medical History (Updated 03/31/25 @ 14:34 by ELLIOTT Bajwa) Class 1 obesity Atrial fibrillation Hypothyroidism Asthma Pericardial effusion Pneumonitis Pleural effusion Hypoglycemia unawareness associated with type 2 diabetes mellitus Post-surgical hypothyroidism FDC (current) use of insulin Postsurgical hypothyroidism Thyroid cancer Dyslipidemia Essential hypertension Hyperparathyroidism Vitamin D deficiency Obesity (BMI 30-39.9) Diabetes type 2, uncontrolled Surgical History Hx of colonoscopy Hx of total thyroidectomy Hx of hysterectomy Family History Father No problems noted. Mother Arthritis Social History Household Members: Spouse and Children Housing: Apartment Do you presently have visiting nurse or other home services: Yes (Daughter is HORSE SHOER) Alcohol intake: never Patient Tobacco Use Status: Never used Tobacco e-Cigarette/Vaping Use: Never Used Second Hand Smoke Exposure: No service: No Current occupational status: disabled Cognitive needs: No Hearing needs: No Vision needs: No Physical Exam Vital Signs: Last Vital Signs Pulse 63 03/31/25 13:45 BP 114/60 03/31/25 13:45 Pulse Ox 99 03/31/25 13:45 Oxygen Delivery Method Room Air 03/31/25 13:45 BMI result Body Mass Index 33.3 Office Procedures Glucose Monitoring Details Details: see HPI 44466 - Glucose monitoring, continuous-physician I&R Procedure code (CPT) selection complete Results AMB Hemoglobin A1c AMB Hemoglobin A1c 8.6 % Last Edit by LATASHA Zapata on 03/31/25 13:59 Results Reviewed Results Reviewed: Laboratory Last Values Glucose (Clinic) 216 mg/dL (60-115) H 03/31/25 13:49 Hgb A1c (Clinic) 8.6 % (4.0-6.0) H 03/31/25 13:54 Laboratory Tests 11/07/23 03/06/25 11:47 11:57 Creatinine 0.84 Estim Creat Clear Calc 60.8 Estimated GFR > 60 AST 24 ALT 10 Urine Creatinine 248.12 Urine Microalbumin 12.0 Microalb/Creat Ratio 4.8 Assessment & Plan Assessment & Plan (1) Diabetes mellitus, with long-term current use of insulin: Code(s): E11.9 - Type 2 diabetes mellitus without complications; Z79.4 - FDC (current) use of insulin Category: Medical (2) Class 1 obesity: Code(s): E66.811 - Obesity, class 1 Category: Medical Plan In summary this is a 70-year-old female with type 2 diabetes with complications that is not well-controlled. She stopped Trulicity since it was ineffective for weight loss and caused abdominal pain. Start Mounjaro 2.5 mg weekly. Denies contraindications. Decrease Tresiba to 12 units nightly due to overnight hypoglycemia. Take Humalog 8 units before breakfast, 5 units before lunch, 8 units before dinner. If you experience low blood sugar (under 70), treat this by eating a chewable fruit candy like skittles or jelly beans (about 8 pieces), 4 ounces (1/2 cup) of fruit juice (not diet), 1 tablespoon of honey or 4 glucose tablets. If your blood sugar is under 50, take double the amount of one of the above. Recheck your blood sugar in 15 minutes. Follow up in 1 month for type 2 diabetes. Orders: Orders AMB Hemoglobin A1c Today ELLIOTT Bajwa E11.65 - Type 2 diabetes mellitus with hyperglycemia AMB Glucose Monitoring Today ELLIOTT Bajwa E11.9 - Type 2 diabetes mellitus without complications Medications: New tirzepatide (Mounjaro) for 4 weeks 2.5 mg (0.5 mL) subcut QWEEK 2 mL 0RF ELLIOTT Bajwa Changed From insulin degludec (Tresiba FlexTouch U-100 insulin) 14 units (0.14 mL) subcut DAILY 90 days 12.6 mL 1RF To insulin degludec (Tresiba FlexTouch U-100 insulin) 12 units subcut DAILY Jo Montiel MD From insulin lispro (Humalog KwikPen (U-100) Insulin) 10 units (0.1 mL) subcut TID 90 days 27 mL 1RF To insulin lispro (Humalog KwikPen (U-100) Insulin) subcutaneously 3 times a day; Jo Montiel MD Refilled metoprolol succinate ER 50 mg PO DAILY 30 tabs 0RF ELLIOTT Bajwa Discontinued dulaglutide (Trulicity) Discontinued Reason: Doctor's Order 3 mg (0.5 mL) subcut QWEEK 2 mL 2RF Patient Instructions: Decrease Tresiba to 12 units nightly Take Humalog 8 units before breakfast, 5 units before lunch, 8 units before dinner. Stop trulicity. Start Mounjaro 2.5 mg weekly. If you experience low blood sugar (under 70), treat this by eating a chewable fruit candy like skittles or jelly beans (about 8 pieces), 4 ounces (1/2 cup) of fruit juice (not diet), 1 tablespoon of honey or 4 glucose tablets. If your blood sugar is under 50, take double the amount of one of the above. Recheck your blood sugar in 15 minutes. Disminuya la dosis de Tresiba a 12 unidades por noche. Ramona Humalog 8 unidades antes del desayuno, 5 unidades antes del almuerzo y 8 unidades antes de la anthony. Suspenda Trulicity. Comience con Mounjaro 2.5 mg semanalmente. Si experimenta niveles bajos de az?car en yosef (menos de 70), tr?telo con un caramelo masticable de fruta lolis Skittles o Jelly Beans (aproximadamente 8 piezas), 113 ml (1/2 taza) de jugo de fruta (no light), 1 cucharada de miel o 4 tabletas de glucosa. Si simental nivel de az?car en yosef es nadir de 50, tome el doble de la dosis de chace de los medicamentos mencionados. Vuelva a medir simental nivel de az?car en yosef en 15 minutos. Coding Level of Care Code Est Pt Level 4 (41596) Diagnoses Diabetes mellitus, with long-term current use of insulin E11.9; Z79.4 Class 1 obesity E66.811 CPT Codes Details - CPT: 82108 - Glucose monitoring, continuous-physician I&R ([id number])
[2025-03-31 13:45] VITALS: BP 114/60; PULSE 63; O2SAT 99; BMI 33.3
[2025-03-31 13:54] LABS: Glucose, Whole Blood 216 mg/dL (60-115)
--- OUTSIDE RECORDS SUMMARY | 2025-03-31 15:02 | XMS_ITS | Encounter Summary ---
Author Organization [employer] Address [address] [place] [address] 7 [place] [address] Care Team Providers Care Business Account Specialist Name Role Phone Unavailable Primary Care Provider Unavailabl e Reason for Visit * Reason Comments Med Refill Encounter Details Date Type Department Care Team ([facility] st Contact Info) Description 11/06/2023 Refill [facility] CHC MED & PEDS [address] [place] [address] Ganesh Alvarado MD [address] [place] [address] Social History Tobacco Use Types Packs/Day Years [...]
--- OUTSIDE RECORDS SUMMARY | 2025-03-31 15:02 | XMS_ITS | Encounter Summary ---
Author Organization [employer] Address [address] [place] [address] 7 [place] [address] Care Team Providers Care Ticket Speculator Name Role Phone Unavailable Primary Care Provider Unavailabl e Reason for Visit * Reason Comments Med Refill Encounter Details Date Type Department Care Team ([facility] st Contact Info) Description 07/29/2024 Refill [facility] CHC MED & PEDS [address] [place] [address] Ganesh Alvarado MD 505 [place] [address] Social History Tobacco Use Types Packs/Day Years [...]
--- OUTSIDE RECORDS SUMMARY | 2025-03-31 15:02 | XMS_ITS | Encounter Summary ---
Author Organization [employer] Address [address] [place] [address] 7 [place] [address] Care Team Providers Care Ms Sql Dba Name Role Phone Ganesh Alvarado MD Primary Care Provider [phone] Encounter Details Date Type Department Care Team ([facility] st Contact Info) Description 11/24/2022 Abstract [facility] CHC MED & PEDS [address] [place] [address] Ganesh Alvarado MD [address] [place] [address] Social History Tobacco Use Types Packs/Day Years [...] on filedocumented in this encounter Care Teams Ms Sql Dba Relationship Specialty Start Date End Date Ganesh Alvarado MD [address] [place] [address] PCP - General Internal Medicine 12/21/17 09/05/23 documented as of this encounter
--- OUTSIDE RECORDS SUMMARY | 2025-03-31 15:02 | XMS_ITS | Encounter Summary ---
Author Organization [employer] Address [address] [place] [address] 7 [place] [address] Care Team Providers Care Ssn/Ssbn Weapons Equipment Operator Name Role Phone Ganesh Alvarado MD Primary Care Provider [phone] Reason for Visit * Reason Comments Med Refill Encounter Details Date Type Department Care Team ([facility] st Contact Info) Description 06/08/2023 Refill [facility] CHC MED & PEDS [address] [place] [address] Ganesh Alvarado MD [address] [place] [address] Social History Tobacco Use Types Packs/Day Years [...] on filedocumented in this encounter Care Teams Ssn/Ssbn Weapons Equipment Operator Relationship Specialty Start Date End Date Ganesh Alvarado MD [address] [place] [address] PCP - General Internal Medicine 12/21/17 09/05/23 documented as of this encounter
--- OUTSIDE RECORDS SUMMARY | 2025-03-31 15:02 | XMS_ITS | Encounter Summary ---
Author Organization [employer] Address [address] [place] [address] 7 [place] [address] Care Team Providers Care Labor Delivery Rn Name Role Phone Unavailable Primary Care Provider Unavailabl e Reason for Visit * Reason Comments Med Refill Encounter Details Date Type Department Care Team ([facility] st Contact Info) Description 11/26/[address] [facility] CHC MED & PEDS [address] [place] [address] Ganesh Alvarado MD [address] [place] [address] Social History Tobacco Use Types Packs/Day Years [...]
--- OUTSIDE RECORDS SUMMARY | 2025-03-31 15:02 | XMS_ITS | Encounter Summary ---
Author Organization [employer] Address [address] [place] [address] 7 [place] [address] Care Team Providers Care Bean Picker Machine Operator Name Role Phone Unavailable Primary Care Provider Unavailabl e Reason for Visit * Reason Comments Med Refill Encounter Details Date Type Department Care Team ([facility] st Contact Info) Description 06/04/2024 Refill [facility] CHC MED & PEDS [address] [place] [address] Ganesh Alvarado MD [address] [place] [address] Social History Tobacco Use Types Packs/Day Years [...]
--- OUTSIDE RECORDS SUMMARY | 2025-03-31 15:02 | XMS_ITS | Encounter Summary ---
Author Organization [employer] Address [address] [place] [address] 7 [place] [address] Care Team Providers Care Telecom Sales Consultant Name Role Phone Unavailable Primary Care Provider Unavailabl e Reason for Visit * Reason Comments Med Refill Encounter Details Date Type Department Care Team ([facility] st Contact Info) Description 08/26/2024 Refill [facility] CHC MED & PEDS [address] [place] [address] Ganesh Alvarado MD [address] [place] [address] Social History Tobacco Use Types Packs/Day Years [...]
--- OUTSIDE RECORDS SUMMARY | 2025-03-31 15:02 | XMS_ITS | Encounter Summary ---
Author Organization [employer] Address [address] [place] [address] 7 [place] [address] Care Team Providers Care Technical Engineer Name Role Phone Unavailable Primary Care Provider Unavailabl e Reason for Visit * Reason Comments Med Refill Encounter Details Date Type Department Care Team ([facility] st Contact Info) Description 07/01/2024 Refill [facility] CHC MED & PEDS [address] [place] [address] Ganesh Alvarado MD [address] [place] [address] Social History Tobacco Use Types Packs/Day Years [...]
--- OUTSIDE RECORDS SUMMARY | 2025-03-31 15:02 | XMS_ITS | Encounter Summary ---
Author Organization [employer] Address [address] [place] [address] 7 [place] [address] Care Team Providers Care Wardrobe Technician Name Role Phone Ganesh Alvarado MD Primary Care Provider [phone] Reason for Visit * Reason Comments Med Refill Encounter Details Date Type Department Care Team (Late st Contact Info) Description 08/06/2023 Refill [facility] MEDICINE [address] [place] [address] Ganesh Alvarado MD [address] [place], [place] [id number] Social History Tobacco Use Types Packs/Day Years [...] on filedocumented in this encounter Care Teams Wardrobe Technician Relationship Specialty Start Date End Date Ganesh Alvarado MD [address] [place] [address] PCP - General Internal Medicine 12/21/17 09/05/23 documented as of this encounter
--- OUTSIDE RECORDS SUMMARY | 2025-03-31 15:02 | XMS_ITS | Encounter Summary ---
Author Organization [employer] Address [address] [place] [address] 7 [place] [address] Care Team Providers Care Sleeve Machine Tender Name Role Phone Unavailable Primary Care Provider Unavailabl e Reason for Visit * Reason Comments Med Refill Encounter Details Date Type Department Care Team ([facility] st Contact Info) Description 04/10/2024 Refill [facility] CHC MED & PEDS [address] [place] [address] Ganesh Alvarado MD [address] [place] [address] Social History Tobacco Use Types Packs/Day Years [...]
--- OUTSIDE RECORDS SUMMARY | 2025-03-31 15:02 | XMS_ITS | Encounter Summary ---
Author Organization [employer] Address [address] [place] [address] 7 [place] [address] Care Team Providers Care Artificial Breeding Distributor Name Role Phone Unavailable Primary Care Provider Unavailabl e Reason for Visit * Reason Comments Med Refill Encounter Details Date Type Department Care Team ([facility] st Contact Info) Description 10/18/2023 Refill [facility] MEDICINE [address] [place] [address] Ganesh Alvarado MD [address] [place] [address] Social History Tobacco Use Types Packs/Day Years [...]
--- OUTSIDE RECORDS SUMMARY | 2025-03-31 15:02 | XMS_ITS | Clinical Summary ---
Author Organization [email or web address] Address [address] [place] [address] 7t [place] [address] Care Team Providers Care Hospice/Home Health Aide Name Role Phone Unavailable Primary Care Provider [...] complication, with long-term current use of insulin (HCC) INJETAR 20 UNIDADES SUBCUTANEAS TEDDY VEZ AMANDA. [...] HDL Cholesterol 41 mg/dL [facility] Comment: Desirable HDL: greater than 40 mg/dL Note: This HDL assay may give artificially low results in patients with liver disease. LDL Cholesterol Calculated 127 mg/dl [facility] Comment: Desirable LDL: less than [...] >60 [facility] Comment: NOTE: For -Swedish individuals, multiply the result by 1.210. Chronic Kidney Disease: Estimated GFR < 60 mL/min/1.73m2 Severe Kidney Disease: Estimated GFR < 15 mL/min/1.73m2 Glucose Fasting 110(H) 60 - 99 mg/dL [facility] Comment: A fasting glucose from 100-125 mg/dl is considered impaired (pre-diabetes). Potassium 4.8 3.3 - 5.1 mmol/l [facility] Sodium 143 135 - 145 mmol/L [facility] Total Protein 6.9 6.5 - 8.0 g/dL [facility] Vitamin D 25-OH Total 50.3 >30 ng/mL [facility] Comment: Health Based Reference Values* [...] ORDERABLE LABS Final Result Performing Organization Address City/State/[facility] Co de Phone Number [facility] [address] [place] [address] * Mammography Report 1 (05/04/2020 9:06 AM [...] Recently Relevant to Health Maintenance Insurance [place] [address] [place] [phone]
--- OUTSIDE RECORDS SUMMARY | 2025-03-31 15:02 | XMS_ITS | Encounter Summary ---
Author Organization [employer] Address [address] [place] [address] 7 [place] [address] Care Team Providers Care Machine Operator Farmworker Name Role Phone Unavailable Primary Care Provider Unavailabl e Reason for Visit * Reason Comments Med Refill Encounter Details Date Type Department Care Team ([facility] st Contact Info) Description 05/06/2024 Refill [facility] CHC MED & PEDS [address] [place] [address] Ganesh Alvarado MD [address] [place] [address] Social History Tobacco Use Types Packs/Day Years [...]
--- OUTSIDE RECORDS SUMMARY | 2025-03-31 15:02 | XMS_ITS | Encounter Summary ---
Author Organization [employer] Address [address] [place] [address] 7 [place] [address] Care Team Providers Care Manager Storage Name Role Phone Unavailable Primary Care Provider Unavailabl e Reason for Visit * Reason Comments Med Refill Encounter Details Date Type Department Care Team ([facility] st Contact Info) Description 01/17/2024 Refill [facility] CHC MED & PEDS [address] [place] [address] Ganesh Alvarado MD [address] [place] [address] Social History Tobacco Use Types Packs/Day Years [...]
--- OUTSIDE RECORDS SUMMARY | 2025-03-31 15:02 | XMS_ITS | Encounter Summary ---
Author Organization [employer] Address [address] [place] [address] [address] [place] [address] Care Team Providers Care Warp Tension Tester Name Role Phone Unavailable Primary Care Provider Unavailabl e Reason for Visit * Reason Comments Med Refill Encounter Details Date Type Department Care Team ([facility] st Contact Info) Description 11/02/2023 Refill [facility] CHC MED & PEDS [address] [place] [address] Ganesh Alvarado MD [address] [place] [address] Social History Tobacco Use Types Packs/Day Years [...]
--- OUTSIDE RECORDS SUMMARY | 2025-03-31 15:02 | XMS_ITS | Encounter Summary ---
Author Organization [employer] Address [address] [place] [address] 7 [place] [address] Care Team Providers Care Proofing Machine Operator Name Role Phone Unavailable Primary Care Provider Unavailabl e Reason for Visit * Reason Comments Med Refill Encounter Details Date Type Department Care Team ([facility] st Contact Info) Description 04/09/2024 Refill [facility] CHC MED & PEDS [address] [place] [address] Ganesh Alvarado MD [address] [place] [address] Social History Tobacco Use Types Packs/Day Years [...]
--- OUTSIDE RECORDS SUMMARY | 2025-03-31 15:02 | XMS_ITS | Encounter Summary ---
Author Organization [employer] Address [address] [place] [address] 7 [place] [address] Care Team Providers Care Portrait Painter Name Role Phone Unavailable Primary Care Provider Unavailabl e Reason for Visit * Reason Comments Med Refill Encounter Details Date Type Department Care Team ([facility] st Contact Info) Description 10/08/2024 Refill [facility] CHC MED & PEDS [address] [place] [address] Ganesh Alvarado MD [address] [place] [address] Social History Tobacco Use Types Packs/Day Years [...]
== END 2025-03-31 14:25 | disposition home or self-care (01) ==
LOC: HO.ENCR 13:44
PROVIDERS: PCP Internal Medicine; Visit Provider Physician Assistant Medical
DX: E11.9 Type 2 diabetes mellitus without complications (principal); Z79.4 Long term (current) use of insulin; E66.811 Obesity, class 1; E11.65 Type 2 diabetes mellitus with hyperglycemia

== ENCOUNTER → 2025-03-31 13:42 | Outpatient (BNVA) | payer OTHER, SELFPAY | PROVIDERS: PCP Internal Medicine; Visit Provider Physician Assistant Medical | DX: E11.65 Type 2 diabetes mellitus with hyperglycemia (principal); Z79.4 Long term (current) use of insulin; E66.811 Obesity, class 1 | CPT/HCPCS: 82947; 83036; 99212 ==

== ENCOUNTER 2025-04-14 09:34 | Outpatient (AMB) | payer OTHER, SELFPAY ==
[2025-04-14 09:43] VITALS: BP 112/66; PULSE 81; O2SAT 98; BMI 33.2
--- NOTE | 2025-04-14 09:43 | A.OFFVIS_ITS ---
Vital Signs 3 04/14/25 09:43 Height 5 ft 1 in Weight 175 lb 11.335 oz BMI 33.2 BP 112/66 Blood Pressure Location Lt brachial Position Sitting Pulse 81 Pulse Source Pulse Oximeter Pulse Oximetry (%) 98 Oxygen Delivery Method Room Air Intake Visit Reasons: Hypothyroidism Intake Note: Patient present today for Hypothyroidism office visit. Television Presenter Required: Yes Television Presenter Language: Box Covering Machine Operator Name: Erwin [id number] Information Interpreted: non-clinical & clinical Accompanied by: Self / Same As Patient Allergies empagliflozin (From JARDIANCE) Allergy (Intermediate, Verified 03/06/25 10:11) ITCHY/RASH dulaglutide (From Trulicity) Adverse Reaction (Intermediate, Verified 03/31/25 14:13) Abdominal Pain JARDIANCE Allergy (Intermediate, Uncoded 03/06/25 10:11) pruritus Medication List - Last Reconciled 04/14/25 by Madhuri Guo MD [air conditioner As directed] apixaban (Eliquis) 5 mg PO BID [balance As directed] blood pressure test kit-large As directed blood sugar diagnostic (FoundationDB Ultra Test strips) USE TO TEST BLOOD SUGAR FOUR TIMES PER DAY blood-glucose meter (FoundationDB Ultra2 Meter) As directed test 4 times a day blood-glucose,admissions rn,cont (Dexcom G7 Artist Scientific) As directed cholecalciferol (vitamin D3) (Vitamin D3) 50 mcg PO DAILY Dexcom G7 Sensor (blood-glucose sensor) As directed change every 10 days NS diltiazem HCl CD (Cardizem CD) 120 mg See Protocol PO DAILY diltiazem HCl CD (Cartia XT) 120 mg PO DAILY glucose (Dex4 Glucose) 16 grams (4 x 4 gram) PO Q15M PRN Grab bar As directed incontinence pad, liner, disp Use 1 pad every 6 hours as needed incontinence pad, liner, disp As directed insulin degludec (Tresiba FlexTouch U-100 insulin) 12 units subcut DAILY insulin lispro (Humalog KwikPen (U-100) Insulin) subcutaneously 3 times a day; lancets (PCD Partnersuch Delica Plus Lancet) USE TO TEST BLOOD SUGAR FOUR TIMES DAILY lancets (FreeStyle Lancets) As directed test 4X a day latex gloves (Latex Gloves, Large) As directed levothyroxine 137 mcg PO DAILY@0600 lidocaine 5% 2 patches topical DAILY metoprolol succinate ER 50 mg See Protocol PO DAILY metoprolol succinate ER 50 mg PO DAILY nebulizers As directed oxycodone 5 mg PO Q6H PRN rosuvastatin 40 mg PO DAILY 90 days tirzepatide (Mounjaro) 2.5 mg (0.5 mL) subcut QWEEK tramadol 50 mg PO Q6H PRN triamcinolone acetonide 0.1% 1 appl topical DAILY underpads (Bed Underpads) As directed Ventolin HFA 90 mcg/actuation (albuterol sulfate) 2 puffs inhalation Q6H PRN 30 days NS [wipes flushable As directed] HPI Comments Details: 70-year-old female coming in today for follow up of papillary thyroid cancer status post total thyroidectomy in May 2017, with Dr. Theron Whalen at [facility], 3.2 cm focus with positive lymphovascular extension, positive perineural extension, positive ETE to soft tissue but not to skeletal muscle, margins free of tumor, 3/4 positive lymph nodes. Unclear AJCC stage but labeled as stage IV A (pT3, N1a, MX), MUSTAPHA inital high risk of recurrence currently, MUSTAPHA excellent response to therapy. She sees ELLIOTT Vargas for diabetes melitus in our office, , will be seeing her for fup. History of PTC in detail 05/02/2017: Total thyroidectomy with Dr. Theron Whalen at [facility] to be wet [facility], pathology report showed tumor size 3.2 X 3 X 2.9 cm, PTC classic variant, positive lymphovascular extension, positive perineural extension, positive extrathyroidal extension to soft tissue but not to skeletal muscle, margins free of tumor, lymph nodes examined 09/02 positive for tumor. Left upper parathyroid gland was a hyperplastic and removed. AJCC stage Ivy ?? PT3, N1a, MX. Unclear why it says pT3, should be pT4b?? per description 09/21/2017: Whole-body scan post remnant ablation showed no metastasis, only uptake in the neck. 10/12/2017: Treatment with GALAVIZ 104.7 mCi I 131 09/29/2020: Whole-body scan showed faint focus of radiotracer uptake in the left hypopharyngeal wall. There was no corresponding abnormality in CT images. TSH was 30.16, TG level was 0.6 ng/mL. 04/03/2022: Ultrasound head and neck with multiple normal-appearing lymph nodes. 02/27/2023: Labs TSH 44.9, free T4 0.66, TG level 0.6, TG antibody less than 1 11/07/2023 TSH 30.29, consistent with poor adherence to levothyroxine. No thyroglobulin level done. 07/16/24: TSH 1.6, free t4 1.29, Tg <0.1, tg ab 2 09/24/2024: Ultrasound of the neck I reviewed the images myself, shows normal- appearing bilateral lymph nodes. 10/01/24: TSH done during hospitalisation was 4.39 , she was hospitalized in September due to atrial fibrillation/acute hypokalemia/worsening of chronic diarrhea Interval history She was supposed to do blood work both in 6 weeks after last appointment and then prior to this appointment, no blood work was done. Denies Tiredness. Denies palpitations. Denies tremors. Bowel movements are regular. Weight stable. Reports some non adherence with levothyroxine 137 mcg daily. Trying to be better. HAs been missing it once or twice a week. Denies any new lumps or bumps in neck, reports some intermittent choking not new , sometimes reports voice hoarseness Physical exam General: sitting comfortably in no acute distress HEENT: normocephalic/atraumatic, Neck: supple, symmetrical, no palpble masses or lymphnodes , no dorsocervical or supraclavicular fat pads Cardiac: normal heart sounds Pulm: normal breath sounds B/L, no added breath sounds Abd: not distended, no tenderness Extremities: no edema, no signs of myxedema Laboratory Tests 05/22/18 05/31/18 08/07/18 11:45 09:00 05:13 TSH Free T4 1.84 1.83 1.52 Thyroglobulin Thyroglobulin Antibody 11/11/18 06/11/19 12/11/19 11:00 11:30 09:59 TSH Free T4 1.34 1.30 1.21 Thyroglobulin 0.1 H <0.1 <0.1 Thyroglobulin Antibody <1 <1 <1 05/25/20 09/07/20 09/20/20 10:10 12:52 14:02 TSH 0.40 12.85 H 30.16 H Free T4 1.32 0.48 L 0.51 L Thyroglobulin <0.1 0.6 H Thyroglobulin Antibody <1 <1 11/04/20 04/03/22 04/03/22 12:45 10:45 10:45 TSH 3.62 5.82 H Free T4 1.51 Thyroglobulin 0.1 H Thyroglobulin Antibody <1 <1 06/12/22 02/27/23 11/07/23 09:05 10:02 10:56 TSH 5.65 H 44.90 H 30.29 H Free T4 1.20 0.66 L Thyroglobulin 0.6 L Thyroglobulin Antibody Laboratory Tests 07/16/24 10:03 TSH 1.60 Free T4 1.29 Thyroglobulin <0.1 L Thyroglobulin LC-MS/MS <0.4 Thyroglobulin Antibody 2 H Laboratory Tests 07/16/24 10/01/24 10:03 12:39 TSH 1.60 4.39 H Free T4 1.29 Thyroglobulin <0.1 L Thyroglobulin LC-MS/MS <0.4 Thyroglobulin Antibody 2 H ULTRASOUND SOFT TISSUE HEAD AND NECK 09/24/24 Comparison: US/SR - US SOFT TISS HEAD AND/OR NECK - 04/03/22 09:03 EDT Findings: There is a left level 3 circumscribed cystic lesion which measures 1.2 x 0.3 x 0.8 cm. No significant intralesional or perilesional color flow. No posterior acoustic shadowing. There is a left level 4 circumscribed cystic lesion which measures 0.8 x 0.5 x 0.5 cm. No significant intralesional or perilesional color flow. No posterior acoustic shadowing. There are multiple right level 1A, 1B and 3 nonenlarged lymph nodes with benign morphology. The largest lymph node measures 0.9 x 0.3 x 1.0 cm. There is a left level 3 mildly enlarged lymph node with benign morphology that measures 2.2 x 0.6 x 1.3 cm. There is a left level 4 borderline nonenlarged lymph node with benign morphology that measures 1.1 x 0.5 x 0.4 cm. Impression: 1. Subtotal thyroidectomy. 2. Multiple nonenlarged to mildly enlarged benign lymph nodes bilaterally. 3. Nonspecific cystic lesions in the left neck at the level 3 and level 4 regions. This document has been electronically signed by: Andreina Benitez DO on 09/24/2024 13:56:41 Imaging US SOFT TISSUE HEAD/NECK 04/03/22 CLINICAL INFORMATION: Status post thyroidectomy. History of thyroid cancer. COMPARISON: Ultrasound soft tissue 03/17/2019. TECHNIQUE: Ultrasound of the neck soft tissues is performed with high-frequency gamez-scale imaging and color Doppler. FINDINGS: THYROID BED: Prior thyroidectomy. No residual thyroid tissue demonstrated in the thyroid bed. No cystic or solid nodules demonstrated in the thyroid bed. RIGHT NECK SOFT TISSUES: Scattered architecturally normal nodes are present. The nodes show normal fatty hilus, normal cortical thickness, and no cystic change or calcification. No abnormal color-flow. The largest nodes are as follows: Level 3: 0.6 x 0.6 x 0.5 cm. Normal johnny architecture. Previous 1.0 0.2 x 0.8 cm. Level 3: 0.5 x 0.4 x 0.4 cm. Normal johnny architecture. Not seen previously. Level 3: 0.7 x 0.5 x 0.5 cm. Normal johnny architecture. Not seen previously. Level 5A: 1.0 x 0.3 x 0.6 cm. Normal johnny architecture. Previous 0.6 x 0.3 x 0.3 cm. LEFT NECK SOFT TISSUES: Scattered architecturally normal nodes are present. The nodes show normal fatty hilus, normal cortical thickness, and no cystic change or calcification. No abnormal color-flow. The largest nodes are as follows: Level 1B: 0.5 x 0.3 x 0.5 cm. Normal johnny architecture. Not seen previously. Level 2: 0.4 x 0.3 x 0.8 cm. Normal johnny architecture. Previous 1.3 x 0.6 x 1.3 cm. Level 3: 0.7 x 0.3 x 1.1 cm. Normal johnny architecture. Not seen previously. Level 3: 0.9 x 0.6 x 0.9 cm. Normal johnny architecture. Previous 0.9 x 0.5 x 1.0 cm. Level 3: 0.7 x 0.4 x 0.6. Normal johnny architecture. Not seen previously. Level 5B: 1.5 x 0.5 x 1.0 cm. Normal johnny architecture. Previous 0.4 x 0.2 x 0.5 cm. US/US soft tiss head and/or neck IMPRESSION: 1. Total thyroidectomy with no residual thyroid tissue seen. Multiple benign neck lymph nodes. 2. If clinically indicated, further evaluation of the neck soft tissues and nodes may be performed with CT soft tissue neck with intravenous contrast. [facility] Medical History Class 1 obesity Atrial fibrillation Hypothyroidism Asthma Pericardial effusion Pneumonitis Pleural effusion Hypoglycemia unawareness associated with type 2 diabetes mellitus Post-surgical hypothyroidism skilled nursing (current) use of insulin Postsurgical hypothyroidism Thyroid cancer Dyslipidemia Essential hypertension Hyperparathyroidism Vitamin D deficiency Obesity (BMI 30-39.9) Diabetes type 2, uncontrolled Surgical History Hx of colonoscopy Hx of total thyroidectomy Hx of hysterectomy Family History Father No problems noted. Mother Arthritis Social History Household Members: Spouse and Children Housing: Apartment Do you presently have visiting nurse or other home services: Yes (Daughter is [employer]) Alcohol intake: never Patient Tobacco Use Status: Never used Tobacco e-Cigarette/Vaping Use: Never Used Second Hand Smoke Exposure: No service: No Current occupational status: disabled Cognitive needs: No Hearing needs: No Vision needs: No Physical Exam Vital Signs: Last Vital Signs Pulse 81 04/14/25 09:43 BP 112/66 04/14/25 09:43 Pulse Ox 98 04/14/25 09:43 Oxygen Delivery Method Room Air 04/14/25 09:43 BMI result Body Mass Index 33.2 Assessment & Plan Assessment & Plan (1) Thyroid cancer: Code(s): C73 - Malignant neoplasm of thyroid gland Category: Medical Plan: 70-year-old female coming in today for follow up of papillary thyroid cancer status post total thyroidectomy in May 2017, with Dr. Theron Whalen at [facility], 3.2 cm focus with positive lymphovascular extension, positive perineural extension, positive ETE to soft tissue but not to skeletal muscle, margins free of tumor, 3/4 positive lymph nodes. Unclear AJCC stage but labeled as stage IV A (pT3, N1a, MX), MUSTAPHA inital high risk of recurrence currently, MUSTAPHA excellent response to therapy based on unremarkable US findings ( last us 04/2022) and stimulated Tg of 0.6 and unstimulated Tg of 0.1. Las tset of tumor markers 07/16/24: TSH 1.6, free t4 1.29, Tg <0.1, tg ab 2 09/24/2024: Ultrasound of the neck I reviewed the images myself, shows normal- appearing bilateral lymph nodes. Given MUSTAPHA excellent response to therapy , TSh goal 0.5- 2. Last TSH early in September during hospitalization was elevated at 4.39, this was while she was sick plus she presses some non adherence to levothyroxine. I emphasized importance of taking it regularly.She was supposed to do blood work both in 6 weeks after last appointment and then prior to this appointment, no blood work was done. We will repeat labs now. Plan : -Continue levothyroxine 137 mcg daily -Goal TSH 0.5-2 -ordered TSH, free T4, TG and TG antibodies to be done now -ordered ultrasound of the neck to be done in August 2025 prior to next follow up in August 2025 (2) Hypothyroidism: Code(s): E03.9 - Hypothyroidism, unspecified Category: Medical Qualifiers: Hypothyroidism type: postoperative Qualified Code(s): E89.0 - Postprocedural hypothyroidism Plan: Post surgical hypothyrodism. Poor adherence historically to levothyroxine intermittently, now with better adherence. Given MUSTAPHA excellent response to therapy , TSh goal 0.5- 2. Last TSH early in September during hospitalization was elevated at 4.39, this was while she was sick plus she presses some non adherence to levothyroxine. I emphasized importance of taking it regularly.She was supposed to do blood work both in 6 weeks after last appointment and then prior to this appointment, no blood work was done. We will repeat labs now. Plan : -Continue levothyroxine 137 mcg daily -Goal TSH 0.5-2 -ordered TSH, free T4, TG and TG antibodies to be done now Plan see above Orders: Orders 2 Thyroid Stimulating Hormone Today C73 - Malignant neoplasm of thyroid gland, E89.0 - Postprocedural hypothyroidism Free T4 (Free Thyroxine) Today C73 - Malignant neoplasm of thyroid gland, E89.0 - Postprocedural hypothyroidism Thyroglobulin Antibodies Today C73 - Malignant neoplasm of thyroid gland, E89.0 - Postprocedural hypothyroidism Thyroglobulin Today C73 - Malignant neoplasm of thyroid gland, E89.0 - Postprocedural hypothyroidism Thyroglobulin Tumor Marker Today C73 - Malignant neoplasm of thyroid gland, E89.0 - Postprocedural hypothyroidism US soft tiss head and/or neck 08/10/25 C73 - Malignant neoplasm of thyroid gland Medications: Refilled 2 levothyroxine 137 mcg PO DAILY@0600 30 tabs 10RF Patient Instructions: Continue levothyroxine 137 mcg daily Do blood work today, we will reach out with results You will also need to repeat blood work 1-2 weeks prior to your next appointment with me Do ultrasound of the neck sometime in Aug 2025, someone will call you to schedule this, please make sure this is done a few weeks prior to your next appointment with me in August 2025 Contin?e con levotiroxina 137 mcg al d?a. Daniela un an?lisis de yosef hoy mismo y le enviaremos los resultados. Tambi?n deber? repetir el an?lisis de yosef 1 o 2 semanas antes de simental pr?xima hao conmigo. Daniela lia ecograf?a de antolin en 2025. Se le llamar? para programarla. Por favor, aseg?rese de que se realice unas semanas antes de simental pr?xima hao conmigo en 2025. Coding Level of Care Code Est Pt Level 4 (01023) Complex EM visit Add On G2211 Diagnoses Thyroid cancer C73 Postoperative hypothyroidism E89.0 Hypothyroidism type: postoperative
--- OUTSIDE RECORDS SUMMARY | 2025-04-14 10:43 | XMS_ITS | Encounter Summary ---
Author Organization [employer] Address [address] [place] [address] 7 [place] [address] Care Team Providers Care Ornamental Metal Worker Apprentice Name Role Phone Unavailable Primary Care Provider Unavailabl e Reason for Visit * Reason Comments Med Refill Encounter Details Date Type Department Care Team ([facility] st Contact Info) Description 04/09/2024 Refill [facility] CHC MED & PEDS [address] [place] [address] Ganesh Alvarado MD [address] [place] [address] Social History Tobacco Use Types Packs/Day Years [...]
--- OUTSIDE RECORDS SUMMARY | 2025-04-14 10:43 | XMS_ITS | Encounter Summary ---
Author Organization [employer] Address [address] [place] [address] 7 [place] [address] Care Team Providers Care Bobbin Drier Name Role Phone Unavailable Primary Care Provider Unavailabl e Reason for Visit * Reason Comments Med Refill Encounter Details Date Type Department Care Team ([facility] st Contact Info) Description 04/10/2024 Refill [facility] CHC MED & PEDS [address] [place] [address] Ganesh Alvarado MD [address] [place] [address] Social History Tobacco Use Types Packs/Day Years [...]
--- OUTSIDE RECORDS SUMMARY | 2025-04-14 10:43 | XMS_ITS | Encounter Summary ---
Author Organization [employer] Address [address] [place] [address] 7 [place] [address] Care Team Providers Care Yard Engineer Name Role Phone Unavailable Primary Care Provider Unavailabl e Reason for Visit * Reason Comments Med Refill Encounter Details Date Type Department Care Team ([facility] st Contact Info) Description 10/08/[address] [facility] CHC MED & PEDS [address] [place] [address] Ganesh Alvarado MD [address] [place] [address] Social History Tobacco Use Types Packs/Day Years [...]
--- OUTSIDE RECORDS SUMMARY | 2025-04-14 10:43 | XMS_ITS | Encounter Summary ---
Author Organization [employer] Address [address] [place] [address] 7 [place] [address] Care Team Providers Care Napkin Band Wrapper Name Role Phone Unavailable Primary Care Provider Unavailabl e Reason for Visit * Reason Comments Med Refill Encounter Details Date Type Department Care Team ([facility] st Contact Info) Description 11/06/2023 Refill [facility] CHC MED & PEDS [address] [place] [address] Ganesh Alvarado MD [address] [place] [address] Social History Tobacco Use Types Packs/Day Years [...]
--- OUTSIDE RECORDS SUMMARY | 2025-04-14 10:43 | XMS_ITS | Encounter Summary ---
Author Organization [employer] Address [address] [place] [address] 7 [place] [address] Care Team Providers Care Firearms Model Maker Name Role Phone Unavailable Primary Care Provider Unavailabl e Reason for Visit * Reason Comments Med Refill Encounter Details Date Type Department Care Team ([facility] st Contact Info) Description 11/26/2024 Refill [facility] CHC MED & PEDS [address] [place] [address] Ganesh Alvarado MD [address] [place] [address] Social History Tobacco Use Types Packs/Day Years [...]
--- OUTSIDE RECORDS SUMMARY | 2025-04-14 10:43 | XMS_ITS | Clinical Summary ---
Author Organization [employer] Address [address] [place] [address] [address] [place] [address] Care Team Providers Care Component Engineer Name Role Phone Unavailable Primary Care [...] 239 mg/dL HDL Cholesterol 41 mg/dL [facility] Comment: Desirable HDL: greater than 40 mg/dL Note: This HDL assay may give artificially low results in patients with liver disease. LDL Cholesterol Calculated 127 mg/dl [facility] Comment: Desirable LDL: less [...] >60 [facility] Comment: NOTE: For -Thai individuals, multiply the result by 1.210. Chronic Kidney Disease: Estimated GFR < 60 mL/min/1.73m2 Severe Kidney Disease: Estimated GFR < 15 mL/min/1.73m2 Glucose Fasting 110(H) 60 - 99 mg/dL [facility] Comment: A fasting glucose from 100-125 mg/dl is considered impaired (pre-diabetes). Potassium 4.8 3.3 - 5.1 mmol/l [facility] Sodium 143 135 - 145 mmol/L [facility] Total Protein 6.9 6.5 - 8.0 g/dL [facility] Vitamin D 25-OH Total 50.3 >30 ng/mL [facility] Comment: Health Based Reference [...] ORDERABLE LABS Final Result Performing Organization Address City/State/[facility] Co de Phone Number [facility] [address] [place] [address] * Mammography Report 1 (05/04/2020 9:06 AM [...] Recently Relevant to Health Maintenance Insurance [place] [address] [place] [phone]
--- OUTSIDE RECORDS SUMMARY | 2025-04-14 10:43 | XMS_ITS | Encounter Summary ---
Author Organization [facility] Address [address] [place] [address] 7 [place] [address] Care Team Providers Care Shoder Filler Name Role Phone Ganesh Alvarado MD Primary Care Provider [phone] Reason for Visit * Reason Comments Med Refill Encounter Details Date Type Department Care Team (Late st Contact Info) Description 08/06/2023 Refill [facility] MEDICINE [address] [place] [address] Ganesh Alvarado MD [address] [place], [place] [id number] Social History Tobacco Use Types Packs/Day Years [...] on filedocumented in this encounter Care Teams Shoder Filler Relationship Specialty Start Date End Date Ganesh Alvarado MD [address] [place] [address] PCP - General Internal Medicine 12/21/17 09/05/23 documented as of this encounter
--- OUTSIDE RECORDS SUMMARY | 2025-04-14 10:43 | XMS_ITS | Encounter Summary ---
Author Organization [employer] Address [address] [place] [address] 7 [place] [address] Care Team Providers Care Activities Concierge Name Role Phone Unavailable Primary Care Provider Unavailabl e Reason for Visit * Reason Comments Med Refill Encounter Details Date Type Department Care Team ([facility] st Contact Info) Description 05/06/2024 Refill [facility] CHC MED & PEDS [address] [place] [address] Ganesh Alvarado MD [address] [place] [address] Social History Tobacco Use Types Packs/Day Years [...]
--- OUTSIDE RECORDS SUMMARY | 2025-04-14 10:43 | XMS_ITS | Encounter Summary ---
Author Organization [employer] Address [address] [place] [address] [address] [place] [address] Care Team Providers Care Chief Information Security Officer Name Role Phone Unavailable Primary Care Provider Unavailabl e Reason for Visit * Reason Comments Med Refill Encounter Details Date Type Department Care Team ([facility] st Contact Info) Description 07/01/2024 Refill [facility] CHC MED & PEDS [address] [place] [address] Ganesh Alvarado MD [address] [place] [address] Social History Tobacco Use Types Packs/Day Years [...]
--- OUTSIDE RECORDS SUMMARY | 2025-04-14 10:43 | XMS_ITS | Encounter Summary ---
Author Organization [employer] Address [address] [place] [address] [address] [place] [address] Care Team Providers Care Terrapin Fisher Name Role Phone Unavailable Primary Care Provider Unavailabl e Reason for Visit * Reason Comments Med Refill Encounter Details Date Type Department Care Team ([facility] st Contact Info) Description 07/29/2024 Refill [facility] CHC MED & PEDS [address] [place] [address] Ganesh Alvarado MD [address] [place] [address] Social History Tobacco Use Types Packs/Day Years [...]
--- OUTSIDE RECORDS SUMMARY | 2025-04-14 10:43 | XMS_ITS | Encounter Summary ---
Author Organization [employer] Address [address] [place] [address] [address] [place] [address] Care Team Providers Care Product Planner Name Role Phone Unavailable Primary Care Provider Unavailabl e Reason for Visit * Reason Comments Med Refill Encounter Details Date Type Department Care Team ([facility] st Contact Info) Description 10/18/2023 Refill [facility] MEDICINE [address] [place] [address] Ganesh Alvarado MD [address] [place] [address] Social History Tobacco Use Types Packs/Day Years [...]
--- OUTSIDE RECORDS SUMMARY | 2025-04-14 10:43 | XMS_ITS | Encounter Summary ---
Author Organization [employer] Address [address] [place] [address] [address] [place] [address] Care Team Providers Care Jalousie Installer Name Role Phone Unavailable Primary Care Provider Unavailabl e Reason for Visit * Reason Comments Med Refill Encounter Details Date Type Department Care Team ([facility] st Contact Info) Description 11/02/2023 Refill [facility] CHC MED & PEDS [address] [place] [address] Gaensh Alvarado MD [address] [place] [address] Social History Tobacco Use Types Packs/Day Years [...]
--- OUTSIDE RECORDS SUMMARY | 2025-04-14 10:43 | XMS_ITS | Encounter Summary ---
Author Organization [employer] Address [address] [place] [address] 7 [place] [address] Care Team Providers Care Senior Scientist Name Role Phone Unavailable Primary Care Provider Unavailabl e Reason for Visit * Reason Comments Med Refill Encounter Details Date Type Department Care Team ([facility] st Contact Info) Description 08/26/2024 Refill [facility] CHC MED & PEDS [address] [place] [address] Ganesh Alvardao MD [address] [place] [address] Social History Tobacco Use Types Packs/Day Years [...]
--- OUTSIDE RECORDS SUMMARY | 2025-04-14 10:43 | XMS_ITS | Encounter Summary ---
Author Organization [employer] Address [address] [place] [address] 7 [place] [address] Care Team Providers Care Lumber Piler Name Role Phone Unavailable Primary Care Provider Unavailabl e Reason for Visit * Reason Comments Med Refill Encounter Details Date Type Department Care Team ([facility] st Contact Info) Description 01/17/2024 Refill [facility] CHC MED & PEDS [address] [place] [address] Ganesh Alvarado MD [address] [place] [address] Social History Tobacco Use Types Packs/Day Years [...]
--- OUTSIDE RECORDS SUMMARY | 2025-04-14 10:43 | XMS_ITS | Encounter Summary ---
Author Organization [employer] Address [address] [place] [address] 7 [place] [address] Care Team Providers Care File Clerk Name Role Phone Ganesh Alvarado MD Primary Care Provider [phone] Encounter Details Date Type Department Care Team ([facility] st Contact Info) Description 11/24/2022 Abstract [facility] CHC MED & PEDS [address] [place] [address] Ganesh Alvarado MD [address] [place] [address] Social History Tobacco Use Types Packs/Day Years [...] on filedocumented in this encounter Care Teams File Clerk Relationship Specialty Start Date End Date Ganesh Alvarado MD [address] [place] [address] PCP - General Internal Medicine 12/21/17 09/05/23 documented as of this encounter
--- OUTSIDE RECORDS SUMMARY | 2025-04-14 10:43 | XMS_ITS | Encounter Summary ---
Author Organization [employer] Address [address] [place] [address] 7 [place] [address] Care Team Providers Care Room Service Food Service Attendant Name Role Phone Ganesh Alvarado MD Primary Care Provider [phone] Reason for Visit * Reason Comments Med Refill Encounter Details Date Type Department Care Team ([facility] st Contact Info) Description 06/08/2023 Refill [facility] CHC MED & PEDS [address] [place] [address] Ganesh Alvarado MD [address] [place] [address] Social History Tobacco Use Types Packs/Day Years [...] on filedocumented in this encounter Care Teams Room Service Food Service Attendant Relationship Specialty Start Date End Date Ganesh Alvarado MD [address] [place] [address] PCP - General Internal Medicine 12/21/17 09/05/23 documented as of this encounter
--- OUTSIDE RECORDS SUMMARY | 2025-04-14 10:43 | XMS_ITS | Encounter Summary ---
Author Organization [employer] Address [address] [place] [address] 7 [place] [address] Care Team Providers Care Lease Attendant Name Role Phone Unavailable Primary Care Provider Unavailabl e Reason for Visit * Reason Comments Med Refill Encounter Details Date Type Department Care Team ([facility] st Contact Info) Description 06/04/2024 Refill [facility] CHC MED & PEDS [address] [place] [address] Ganesh Alvarado MD [address] [place] [address] Social History Tobacco Use Types Packs/Day Years [...]
== END 2025-04-14 10:15 | disposition home or self-care (01) ==
LOC: HO.ENCR 09:35
PROVIDERS: PCP Internal Medicine; Visit Provider Student in an Organized Health Care Education/Training Program
DX: C73 Malignant neoplasm of thyroid gland (principal); E89.0 Postprocedural hypothyroidism
CPT/HCPCS: 99214; G2211

== ENCOUNTER → 2025-04-14 09:34 | Outpatient (BNVA) | payer OTHER, SELFPAY | PROVIDERS: PCP Internal Medicine; Visit Provider Student in an Organized Health Care Education/Training Program | DX: E89.0 Postprocedural hypothyroidism (principal); Z85.850 Personal history of malignant neoplasm of thyroid | CPT/HCPCS: 99212 ==

== ENCOUNTER 2025-04-14 10:36 | Outpatient (REF) | payer OTHER, SELFPAY ==
[2025-04-14 14:09] LABS: Free T4 (Free Thyroxine) 0.62 ng/dL (0.71-1.85); Thyroid Stimulating Hormone 34.80 uIU/mL (0.32-4.0)
[2025-04-15 18:18] LABS: Thyroglobulin 0.8 ng/mL; Thyroglobulin Antibodies <1 IU/mL (< or = 1)
== END 2025-04-14 10:37 | disposition home or self-care (01) ==
LOC: HO.10HDL 10:36
PROVIDERS: Visit Provider Student in an Organized Health Care Education/Training Program
DX: E89.0 Postprocedural hypothyroidism (principal); C73 Malignant neoplasm of thyroid gland; Z11.1 Encounter for screening for respiratory tuberculosis
CPT/HCPCS: 36415; 84432; 84439; 84443; 86580; 86800

== ENCOUNTER 2025-04-14 10:48 | Outpatient (AMB) | payer OTHER, SELFPAY ==
[2025-04-14 11:04] VITALS: RESP 18
--- NOTE | 2025-04-14 11:04 | MHC.PC.OV ---
Vital Signs 04/14/25 11:04 Height 5 ft 1 in Blood Pressure Location Lt brachial Position Sitting Respiration 18 Pulse Source Pulse Oximeter Temp Source Temporal Artery Scan Oxygen Delivery Method Room Air Intake Visit Reasons: TB Implant Frame Stripper And Crusher Required: No Accompanied by: Self / Same As Patient Allergies empagliflozin (From JARDIANCE) Allergy (Intermediate, Verified 04/14/25 11:05) ITCHY/RASH dulaglutide (From Trulicity) Adverse Reaction (Intermediate, Verified 04/14/25 11:05) Abdominal Pain JARDIANCE Allergy (Intermediate, Uncoded 03/06/25 10:11) pruritus Tobacco use date assessed: 04/14/25 Last assessed Fall Risk: 04/14/25 Dental Screening Dental Screen Date: 04/14/25 [facility] Medical History Class 1 obesity Atrial fibrillation Hypothyroidism Asthma Pericardial effusion Pneumonitis Pleural effusion Hypoglycemia unawareness associated with type 2 diabetes mellitus Post-surgical hypothyroidism custodial (current) use of insulin Postsurgical hypothyroidism Thyroid cancer Dyslipidemia Essential hypertension Hyperparathyroidism Vitamin D deficiency Obesity (BMI 30-39.9) Diabetes type 2, uncontrolled Surgical History Hx of colonoscopy Hx of total thyroidectomy Hx of hysterectomy Family History Father No problems noted. Mother Arthritis Social History Household Members: Spouse and Children Housing: Apartment Do you presently have visiting nurse or other home services: Yes (Daughter is OCCUPATIONAL THERAPIST ASSISTANT) Alcohol intake: never Patient Tobacco Use Status: Never used Tobacco e-Cigarette/Vaping Use: Never Used Second Hand Smoke Exposure: No service: No Current occupational status: disabled Cognitive needs: No Hearing needs: No Vision needs: No Questionnaire Thrive Questionnaire Date Thrive assessed: 07/14/24 I am a: Patient What is your living situation today?: I have a steady place to live Within the past 12 months, did the food you bought not last and you didn't have the money to get more?: I choose not to answer this question Within the past 12 months, did you worry whether your food would run out before you got money to buy more?: I choose not to answer this question Do you have trouble paying for medicines?: I choose not to answer this question Do you have trouble getting transportation to medical appointments?: I choose not to answer this question Do you have trouble paying your heating and electricity bill?: I choose not to answer this question Do you have trouble taking care of your child, family member or friend?: I choose not to answer this question Do you have trouble with day-to-day activities such as bathing, preparing meals, shopping, managing finances, etc.?: I choose not to answer this question Are you currently unemployed and looking for a job?: I choose not to answer this question Are you interested in more education?: I choose not to answer this question Please select the resources that you would like help with: None Currently or been in a relationship where the following occur: I choose not to answer THRIVE Score: 0 DIVINA-7 AMB Questionnaire DIVINA-7 Date DIVINA - 7 assessed: 07/14/24 Source: Developed by Drs. Kofi Arrington, Tracy Rowe, Al Kulkarni and colleagues, with an educational bobby from [employer]. Physical exam (Primary Care) Tobacco/Smoking Status: Tobacco use Status Tobacco use date assessed 10/17/24 12/04/24 10:02 Patient Tobacco Use Status Never used Tobacco 12/04/24 10:02 e-Cigarette/Vaping Use Never Used 12/04/24 10:02 Thrive Assessment: Date of Thrive Assessment Date Thrive assessed 07/14/24 12/04/24 10:02 Currently or been in a relationship where the following occur: I choose not to answer Office Meds tuberculin PPD 5 tub. unit/0.1 mL intradermal injection solution Performing Provider: Jo Montiel MD [facility] Administered by: Charlotte Pollard LPN on 04/14/25 11:04 Dose Route Admin Location Dispensed Lot Number Expiration Date [facility] Gasket Inspector 0.1 mL intradermal left forearm 0.1 mL [id number] 07/31/27 68340-322-18 [employer] Total Dispensed Waste 0.1 mL 0 % Coding Assessment & Plan Assessment & Plan Orders: Orders AMB PPD Planted Today Z11.1 - Encounter for screening for respiratory tuberculosis
--- NOTE | 2025-04-14 11:04 | AM.OFFVISNUR ---
Vital Signs 04/14/25 11:04 Height 5 ft 1 in Blood Pressure Location Lt brachial Position Sitting Respiration 18 Pulse Source Pulse Oximeter Temp Source Temporal Artery Scan Oxygen Delivery Method Room Air Intake Visit Reasons: TB Implant Allergies empagliflozin (From JARDIANCE) Allergy (Intermediate, Verified 04/14/25 11:05) ITCHY/RASH dulaglutide (From Trulicity) Adverse Reaction (Intermediate, Verified 04/14/25 11:05) Abdominal Pain JARDIANCE Allergy (Intermediate, Uncoded 03/06/25 10:11) pruritus Office Meds tuberculin PPD 5 tub. unit/0.1 mL intradermal injection solution Performing Provider: Jo Montiel MD [facility] Administered by: Charlotte Pollard LPN on 04/14/25 11:04 Dose Route Admin Location Dispensed Lot Number Expiration Date [employer] Test Eng 0.1 mL intradermal left forearm 0.1 mL [id number] 07/31/27 89052-403-49 [employer] Total Dispensed Waste 0.1 mL 0 % Assessment & Plan Assessment & Plan Orders: Orders AMB PPD Planted Today Z11.1 - Encounter for screening for respiratory tuberculosis Coding
== END 2025-04-14 11:05 | disposition home or self-care (01) ==
LOC: HO.HMCH 10:49
PROVIDERS: PCP Internal Medicine; Visit Provider Internal Medicine
DX: Z11.1 Encounter for screening for respiratory tuberculosis (principal)

== ENCOUNTER 2025-04-28 09:56 | Outpatient (REF) | payer OTHER, SELFPAY ==
--- NOTE | ~2025-04-28 | XR_ITS ---
EXAMINATION: XR SHOULDER, RIGHT CLINICAL INFORMATION: M25.511 - Pain in right shoulder COMPARISON: Correlated to chest x-ray dated March 06, 2025. TECHNIQUE: AP external rotation, Grashey, scapular Y, and axillary views of the right shoulder. FINDINGS: Limited film view of the axillary views. Degenerative changes in the acromioclavicular clavicular joint and the inferior glenohumeral joint. No acute cortical disruption or malalignment. No lytic or blastic lesions. No metallic or radiopaque foreign body. No soft tissue calcifications. XR/XR shoulder RT min 2V IMPRESSION: Degenerative changes without acute fracture or dislocation. Electronically signed by: Vidal Finch MD 04/28/2025 11:09 AM EDT
--- OUTSIDE RECORDS SUMMARY | 2025-04-28 13:27 | XMS_ITS | Data Portability ---
Author Organization [employer] [facility], [facility] Address [address] [place] [id number] Care Team Providers Care Director Of Player Personnel Name Role Phone HIM CCA OTHER Assessment [...] Diagnosis SNOMED-CT Code Diagnosis ICD10 Code Diagnosis IMO Codes Diagnosis Note [id number] Tal Landa MD [address] [phone] 10/30/2024 12:31:59 10/30/2024 18:20:48 Health Concerns Section Related Observation LastModified by Organization Detai ls LastModified Time None Recorded Concern Status LastModified by Organization Details LastModified Time None Recorded Advance Directives Directive None Recorded Payers Insurance Date Sequence Insurance Name Policy Number Policy Green Covered Member ID Green Member ID Guarantor Name 10/30/2024 1 [facility] - DOS ON OR AFTER 2022 - DUAL ELIGIBLE - [employer] OPTIONS AND ONE CARE (MEDICARE REPLACEMENT/ADV ANTAGE - HMO) Alee Amato [id number] Alee Amato Notes Date Note Type Note [...] .................. .................. .................. .................. .................. .................. ............... Terrazzo Laborer Note From Azam Granados: No answer on phone or door .................. .................. .................. .................. .................. .................. .................. ............... Disposition: Unfulfilled Tal Landa MD [address] [facility],[address], [place], [phone], DA - LAI MARTIN 10/30/2024 18:20:46 OBGyn Episode No OBEpisode recorded.
== END 2025-04-28 09:57 | disposition home or self-care (01) ==
LOC: HO.XRAY 09:56
PROVIDERS: PCP Internal Medicine; Visit Provider Internal Medicine
DX: M25.511 Pain in right shoulder (principal); E11.9 Type 2 diabetes mellitus without complications; F32.A Depression, unspecified; I42.9 Cardiomyopathy, unspecified; M79.605 Pain in left leg; M79.604 Pain in right leg; I10 Essential (primary) hypertension; E89.0 Postprocedural hypothyroidism; M54.31 Sciatica, right side; M54.32 Sciatica, left side; Z79.01 Long term (current) use of anticoagulants; Z79.4 Long term (current) use of insulin; Z79.899 Other long term (current) drug therapy; Z91.81 History of falling
CPT/HCPCS: 73030; 99212

== ENCOUNTER 2025-04-28 09:56 | Outpatient (AMB) | payer OTHER, SELFPAY ==
[2025-04-28 10:00] VITALS: BP 126/80; PULSE 70; O2SAT 97; BMI 32.9
--- NOTE | 2025-04-28 10:00 | A.OFFPC_ITS ---
Vital Signs 04/28/25 10:00 Height 5 ft 1 in Weight 174 lb BMI 32.9 BP 126/80 Blood Pressure Location Lt brachial Position Sitting Pulse 70 Pulse Source Pulse Oximeter Pulse Oximetry (%) 97 Oxygen Delivery Method Room Air Intake Visit Reasons: DM- A1C needed Customer Sales Consultant Required: No Accompanied by: Self / Same As Patient Allergies empagliflozin (From JARDIANCE) Allergy (Intermediate, Verified 04/28/25 10:18) ITCHY/RASH dulaglutide (From Trulicity) Adverse Reaction (Intermediate, Verified 04/28/25 10:18) Abdominal Pain JARDIANCE Allergy (Intermediate, Uncoded 04/28/25 10:18) pruritus Medication List - Last Reconciled 04/28/25 by Jo Montiel MD [air conditioner As directed] apixaban (Eliquis) 5 mg PO BID [balance As directed] blood pressure test kit-large As directed blood sugar diagnostic ([employer] Ultra Test strips) USE TO TEST BLOOD SUGAR FOUR TIMES PER DAY blood-glucose meter (Hubskip Ultra2 Meter) As directed test 4 times a day blood-glucose,gas compressor operator,cont (Dexcom G7 Wire Coiler Machine Operator) As directed cholecalciferol (vitamin D3) (Vitamin D3) 50 mcg PO DAILY Dexcom G7 Sensor (blood-glucose sensor) As directed change every 10 days NS diltiazem HCl CD (Cardizem CD) 120 mg See Protocol PO DAILY diltiazem HCl CD (Cartia XT) 120 mg PO DAILY glucose (Dex4 Glucose) 16 grams (4 x 4 gram) PO Q15M PRN Grab bar As directed incontinence pad, liner, disp Use 1 pad every 6 hours as needed incontinence pad, liner, disp As directed insulin degludec (Tresiba FlexTouch U-100 insulin) 12 units subcut DAILY insulin lispro (Humalog KwikPen (U-100) Insulin) subcutaneously 3 times a day; lancets ([employer] Genome [employer]uch Delica Plus Lancet) USE TO TEST BLOOD SUGAR FOUR TIMES DAILY lancets (FreeStyle Lancets) As directed test 4X a day latex gloves (Latex Gloves, Large) As directed levothyroxine 137 mcg PO DAILY@0600 lidocaine 5% 2 patches topical DAILY metoprolol succinate ER 50 mg See Protocol PO DAILY metoprolol succinate ER 50 mg PO DAILY nebulizers As directed oxycodone 5 mg PO Q6H PRN rosuvastatin 40 mg PO DAILY 90 days tirzepatide (Mounjaro) 10 mg (0.5 mL) subcut QWEEK tramadol 50 mg PO Q6H PRN triamcinolone acetonide 0.1% 1 appl topical DAILY underpads (Bed Underpads) As directed Ventolin HFA 90 mcg/actuation (albuterol sulfate) 2 puffs inhalation Q6H PRN 30 days NS [wipes flushable As directed] Tobacco use date assessed: 04/28/25 Fall risk assessment: 1 Fall in past year Last assessed Fall Risk: 04/28/25 Dental Screening Dental Screen Date: 04/28/25 Did you have a dental visit in the last 12 months?: No Did you have a dental problem in the last 6 months where you did not have access to dental care?: No Was dental information given to patient?: Patient has dentist HPI HPI Comments History of Present Illness Details The patient is a 70-year-old female presenting for a follow-up visit for management of multiple chronic conditions including diabetes, hypothyroidism, and depression. The patient has a history of cardiomyopathy, with an echocardiogram in July showing an ejection fraction of 65% and grade 3 severe diastolic dysfunction, with no significant valvular issues. Her last hemoglobin A1c was 8.6% in March, and she reports fluctuating blood sugar levels, including episodes of hypoglycemia down to 47 mg/dL during sleep. She has experienced adverse effects from Jardiance (rash) and Trulicity (abdominal pain). Her levothyroxine dose was recently increased to 137 mcg about a week ago due to altered thyroid labs. Endocrinology plans to repeat thyroid labs in June and has ordered a neck ultrasound. Past lab work also indicated mild anemia. The patient reports chronic pain in her right shoulder and legs. The shoulder pain began after a fall on a bus, for which no imaging was performed. She states that previously prescribed tramadol was not effective. She also has a history of urinary incontinence managed with incontinence pads. Current medications include Eliquis, vitamin D, diltiazem, Tresiba 12 units, Humalog, levothyroxine 137 mcg, lidocaine patches, and metoprolol. 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 Mother Arthritis Social History Household Members: Spouse and Children Housing: Apartment Do you presently have visiting nurse or other home services: Yes (Daughter is PULVI MIXER OPERATOR) Alcohol intake: never Patient Tobacco Use Status: Never used Tobacco e-Cigarette/Vaping Use: Never Used Second Hand Smoke Exposure: No service: No Current occupational status: disabled Cognitive needs: No Hearing needs: No Vision needs: No Questionnaire Thrive Questionnaire Date Thrive assessed: 07/14/24 I am a: Patient What is your living situation today?: I have a steady place to live Within the past 12 months, did the food you bought not last and you didn't have the money to get more?: I choose not to answer this question Within the past 12 months, did you worry whether your food would run out before you got money to buy more?: I choose not to answer this question Do you have trouble paying for medicines?: I choose not to answer this question Do you have trouble getting transportation to medical appointments?: I choose not to answer this question Do you have trouble paying your heating and electricity bill?: I choose not to answer this question Do you have trouble taking care of your child, family member or friend?: I choose not to answer this question Do you have trouble with day-to-day activities such as bathing, preparing meals, shopping, managing finances, etc.?: I choose not to answer this question Are you currently unemployed and looking for a job?: I choose not to answer this question Are you interested in more education?: I choose not to answer this question Please select the resources that you would like help with: None Currently or been in a relationship where the following occur: I choose not to answer THRIVE Score: 0 AUDIT C Alcohol Use Questionnaire (AUDIT-C) 1. How often do you have a drink containing alcohol?: Never 3. How often do you have six or more drinks on one occasion?: Never Total Score: 0 Score Reviewed/Action Taken: No DIVINA-7 AMB Questionnaire DIVINA-7 Date DIVINA - 7 assessed: 07/14/24 Source: Developed by Drs. Kofi Arrington, Tracy Rowe, Al Kulkarni and colleagues, with an educational bobby from [employer]. Review of Systems Const All systems reviewed & are unremarkable except as noted in HPI and below Card Denies chest pain at rest, Denies chest pain with activity, Denies edema, Denies irregular heart rhythm, Denies claudication, Denies dyspnea, Denies dyspnea on exertion, Denies orthopnea, Denies paroxysmal nocturnal dyspnea and Denies slow heart rate Resp Denies cough, Denies dyspnea and Denies dyspnea on exertion Physical exam (Primary Care) Vital Signs: Last Vital Signs Pulse 70 04/28/25 10:00 BP 126/80 04/28/25 10:00 Pulse Ox 97 04/28/25 10:00 Oxygen Delivery Method Room Air 04/28/25 10:00 BMI result Body Mass Index 32.9 BMI Assessment/Plan discussion: High BMI High, discussed plan: lifestyle, weight reduction, dietary and physical activity Tobacco/Smoking Status: Tobacco use Status Tobacco use date assessed 04/28/25 04/28/25 10:04 Patient Tobacco Use Status Never used Tobacco 04/28/25 10:04 e-Cigarette/Vaping Use Never Used 04/28/25 10:04 Thrive Assessment: Date of Thrive Assessment Date Thrive assessed 07/14/24 04/28/25 10:04 Currently or been in a relationship where the following occur: I choose not to answer Resp Effort & Inspection: normal respiratory effort Auscultation: clear to auscultation bilaterally Cardio Jugular venous distension: no JVD Rate: regular rate Rhythm: regular rhythm Heart sounds: S1 normal heart sound present and S2 normal heart sound present Extrem General: Yes full ROM Coding Level of Care Code Est Pt Level 4 (18214) Complex EM visit Add On G2211 Diagnoses Essential hypertension I10 Cardiomyopathy I42.9 Diabetes mellitus, with long-term current use of insulin E11.9; Z79.4 Post-surgical hypothyroidism E89.0 Right shoulder pain M25.511 Bilateral sciatica M54.31; M54.32 Time Spent (min) 24 Assessment & Plan Assessment & Plan (1) Essential hypertension: Code(s): I10 - Essential (primary) hypertension Category: Medical (2) Cardiomyopathy: Code(s): I42.9 - Cardiomyopathy, unspecified Category: Medical (3) Diabetes mellitus, with long-term current use of insulin: Code(s): E11.9 - Type 2 diabetes mellitus without complications; Z79.4 - snf (current) use of insulin Category: Medical (4) Post-surgical hypothyroidism: Code(s): E89.0 - Postprocedural hypothyroidism Category: Medical (5) Right shoulder pain: Code(s): M25.511 - Pain in right shoulder Category: Medical (6) Bilateral sciatica: Code(s): M54.31 - Sciatica, right side; M54.32 - Sciatica, left side Category: Medical Plan Plan 1. Diabetes Mellitus The patient's diabetes is poorly controlled, evidenced by a recent A1c of 8.6% and reports of nocturnal hypoglycemia. She is scheduled for a follow-up with endocrinology for ongoing management. Lab work will be ordered in four months to check cholesterol levels. 2. Hypothyroidism The patient's levothyroxine was recently adjusted due to altered thyroid hormone levels. Per endocrinology's recommendation, repeat thyroid blood tests will be conducted in June, and a neck ultrasound is planned. 3. Chronic Pain The patient reports significant pain in the right shoulder and legs, with the shoulder pain resulting from a fall. A referral will be made to Orthopedics for the shoulder pain and to Pain Management for overall pain control. The request for oxycodone was denied due to the risks of addiction, respiratory depression, constipation, and sedation. 4. Cardiomyopathy The patient has a history of cardiomyopathy with preserved ejection fraction and severe diastolic dysfunction. She will continue her current cardiac medications, including Eliquis, diltiazem, and metoprolol. 5. Anemia A history of mild anemia was noted. New lab work will be ordered to re-evaluate her hematologic status. Orders: Orders Comprehensive Met. Panel 4 Months I42.9 - Cardiomyopathy, unspecified XR shoulder RT min 2V Today M25.511 - Pain in right shoulder Lipid Panel 4 Months E78.5 - Hyperlipidemia, unspecified Microalbumin, Random (w Creat) 4 Months R80.9 - Proteinuria, unspecified Vitamin D 25-OH Total 4 Months E55.9 - Vitamin D deficiency, unspecified Complete Blood Count Auto Diff 4 Months D64.9 - Anemia, unspecified IRON PROFILE 4 Months D64.9 - Anemia, unspecified Vitamin B12 and Folate 4 Months E53.8 - Deficiency of other specified B group vitamins NT Pro B Type Natriuretic Pept 4 Months I42.9 - Cardiomyopathy, unspecified Referrals Pain Management Referral M54.31 - Sciatica, right side, M54.32 - Sciatica, left side Orthopedics Referral M25.511 - Pain in right shoulder Medications: Discontinued oxycodone Partial Fill upon patient request. Discontinued Reason: Patient Completed Course 5 mg PO Q6H PRN 10 tabs 0RF pain tramadol Discontinued Reason: Patient Completed Course 50 mg PO Q6H PRN 12 tabs 0RF severe pain (scale score 7-10)
--- OUTSIDE RECORDS SUMMARY | 2025-04-28 11:48 | XMS_ITS | Encounter Summary ---
Author Organization [employer] Address [address] [place] [address] 7 [place] [address] Care Team Providers Care Optoelectronics Engineer Name Role Phone Unavailable Primary Care Provider Unavailabl e Reason for Visit * Reason Comments Med Refill Encounter Details Date Type Department Care Team ([facility] st Contact Info) Description 04/09/[address] [facility] CHC MED & PEDS [address] [place] [address] Ganesh Alvarado MD [address] [place] [address] Social History Tobacco Use Types Packs/Day Years [...]
--- OUTSIDE RECORDS SUMMARY | 2025-04-28 11:48 | XMS_ITS | Encounter Summary ---
Author Organization [employer] Address [address] [place] [address] 7 [place] [address] Care Team Providers Care Code Enforcement Inspector Name Role Phone Unavailable Primary Care Provider Unavailabl e Reason for Visit * Reason Comments Med Refill Encounter Details Date Type Department Care Team ([facility] st Contact Info) Description 08/26/2024 Refill [facility] CHC MED & PEDS [address] [place] [address] Ganesh Alvarado MD [address] [place] [address] Social History Tobacco Use Types Packs/Day Years [...]
--- OUTSIDE RECORDS SUMMARY | 2025-04-28 11:48 | XMS_ITS | Encounter Summary ---
Author Organization [employer] Address [address] [place] [address] 7 [place] [address] Care Team Providers Care Gamb Cutter Name Role Phone Unavailable Primary Care Provider Unavailabl e Reason for Visit * Reason Comments Med Refill Encounter Details Date Type Department Care Team ([facility] st Contact Info) Description 10/08/2024 Refill [facility] CHC MED & PEDS [address] [place] [address] Ganesh Alvarado MD [address] [place] [address] Social History Tobacco Use Types Packs/Day Years [...]
--- OUTSIDE RECORDS SUMMARY | 2025-04-28 11:48 | XMS_ITS | Encounter Summary ---
Author Organization [employer] Address [address] [place] [address] [address] [place] [address] Care Team Providers Care High School Social Science Teacher Name Role Phone Ganesh Alvarado MD Primary Care Provider [phone] Reason for Visit * Reason Comments Med Refill Encounter Details Date Type Department Care Team ([facility] st Contact Info) Description 06/08/[address] [facility] CHC MED & PEDS [address] [place] [address] Ganesh Alvarado MD [address] [place] [address] Social History Tobacco Use Types Packs/Day Years [...] on filedocumented in this encounter Care Teams High School Social Science Teacher Relationship Specialty Start Date End Date Ganesh Alvarado MD [address] [place] [address] PCP - General Internal Medicine 12/21/17 09/05/23 documented as of this encounter
--- OUTSIDE RECORDS SUMMARY | 2025-04-28 11:48 | XMS_ITS | Encounter Summary ---
Author Organization [facility] Address [address] [place] [address] 7 [place] [address] Care Team Providers Care Equipment Manager Name Role Phone Ganesh Alvarado MD Primary Care Provider [phone] Reason for Visit * Reason Comments Med Refill Encounter Details Date Type Department Care Team (Late st Contact Info) Description 08/06/2023 Refill [facility] MEDICINE [address] [place] [address] Ganesh Alvarado MD [address] [place], [place] [id number] Social History Tobacco Use Types Packs/Day Years [...] on filedocumented in this encounter Care Teams Equipment Manager Relationship Specialty Start Date End Date Ganesh Alvarado MD [address] [place] [address] PCP - General Internal Medicine 12/21/17 09/05/23 documented as of this encounter
--- OUTSIDE RECORDS SUMMARY | 2025-04-28 11:48 | XMS_ITS | Encounter Summary ---
Author Organization [employer] Address [address] [place] [address] 7 [place] [address] Care Team Providers Care National Sales Trainer Name Role Phone Unavailable Primary Care Provider Unavailabl e Reason for Visit * Reason Comments Med Refill Encounter Details Date Type Department Care Team ([facility] st Contact Info) Description 10/18/2023 Refill [facility] MED[facility]INE [address] [place] [address] Ganesh Alvarado MD [address] [place] [address] Social History Tobacco Use Types Packs/Day Years [...]
--- OUTSIDE RECORDS SUMMARY | 2025-04-28 11:48 | XMS_ITS | Encounter Summary ---
Author Organization [employer] Address [address] [place] [address] 7 [place] [address] Care Team Providers Care Microsoft Dynamics Consultant Name Role Phone Unavailable Primary Care Provider Unavailabl e Reason for Visit * Reason Comments Med Refill Encounter Details Date Type Department Care Team ([facility] st Contact Info) Description 06/04/2024 Refill [facility] MED & PEDS [address] [place] [address] Ganesh Alvarado MD [address] [place] [address] Social History Tobacco Use Types Packs/Day Years [...]
--- OUTSIDE RECORDS SUMMARY | 2025-04-28 11:48 | XMS_ITS | Encounter Summary ---
Author Organization [employer] Address [address] [place] [address] 7 [place] [address] Care Team Providers Care Manager Rn Name Role Phone Unavailable Primary Care Provider Unavailabl e Reason for Visit * Reason Comments Med Refill Encounter Details Date Type Department Care Team ([facility] st Contact Info) Description 11/02/2023 Refill [facility] CH[facility] MED & PEDS [address] [place] [address] Ganesh Alvarado MD [address] [place] [address] Social History Tobacco Use Types Packs/Day Years [...]
--- OUTSIDE RECORDS SUMMARY | 2025-04-28 11:48 | XMS_ITS | Encounter Summary ---
Author Organization [employer] Address [address] [place] [address] 7 [place] [address] Care Team Providers Care Cook Soup Name Role Phone Unavailable Primary Care Provider Unavailabl e Reason for Visit * Reason Comments Med Refill Encounter Details Date Type Department Care Team ([facility] st Contact Info) Description 07/29/2024 Refill [facility] CHC MED & PEDS [address] [place] [address] Ganesh Alvarado MD [address] [place] [address] Social History Tobacco Use Types Packs/Day Years [...]
--- OUTSIDE RECORDS SUMMARY | 2025-04-28 11:48 | XMS_ITS | Encounter Summary ---
Author Organization [employer] Address [address] [place] [address] 7 [place] [address] Care Team Providers Care Neuro Psych Sales Specialist Name Role Phone Unavailable Primary Care Provider Unavailabl e Reason for Visit * Reason Comments Med Refill Encounter Details Date Type Department Care Team ([facility] st Contact Info) Description 05/06/2024 Refill [facility] CHC MED & PEDS [address] [place] [address] Ganesh Alvarado MD 505 [place] [address] Social History Tobacco Use Types Packs/Day Years [...]
--- OUTSIDE RECORDS SUMMARY | 2025-04-28 11:48 | XMS_ITS | Encounter Summary ---
Author Organization [employer] Address [address] [place] [address] 7 [place] [address] Care Team Providers Care Wharf Helper Name Role Phone Unavailable Primary Care Provider Unavailabl e Reason for Visit * Reason Comments Med Refill Encounter Details Date Type Department Care Team ([facility] st Contact Info) Description 11/26/2024 Refill [facility] CHC MED & PEDS [address] [place] [address] Ganesh Alvarado MD 505 [place] [address] Social History Tobacco Use Types Packs/Day Years [...]
--- OUTSIDE RECORDS SUMMARY | 2025-04-28 11:48 | XMS_ITS | Encounter Summary ---
Author Organization [employer] Address [address] [place] [address] 7 [place] [address] Care Team Providers Care Probation Supervisor Name Role Phone Ganesh Alvarado MD Primary Care Provider [phone] Encounter Details Date Type Department Care Team ([facility] st Contact Info) Description 11/24/2022 Abstract [facility] CHC MED & PEDS [address] [place] [address] Ganesh Alvarado MD [address] [place] [address] Social History Tobacco Use Types Packs/Day Years [...] on filedocumented in this encounter Care Teams Probation Supervisor Relationship Specialty Start Date End Date Ganesh Alvarado MD [address] [place] [address] PCP - General Internal Medicine 12/21/17 09/05/23 documented as of this encounter
--- OUTSIDE RECORDS SUMMARY | 2025-04-28 11:48 | XMS_ITS | Encounter Summary ---
Author Organization [employer] Address [address] [place] [address] 7 [place] [address] Care Team Providers Care Machine Gunner Name Role Phone Unavailable Primary Care Provider Unavailabl e Reason for Visit * Reason Comments Med Refill Encounter Details Date Type Department Care Team ([facility] st Contact Info) Description 01/17/2024 Refill [facility] CHC MED & PEDS [address] [place] [address] Ganesh Alvarado MD [address] [place] [address] Social History Tobacco Use Types Packs/Day Years [...]
--- OUTSIDE RECORDS SUMMARY | 2025-04-28 11:48 | XMS_ITS | Encounter Summary ---
Author Organization [employer] Address [address] [place] [address] 7 [place] [address] Care Team Providers Care Oxidized Finish Plater Name Role Phone Unavailable Primary Care Provider Unavailabl e Reason for Visit * Reason Comments Med Refill Encounter Details Date Type Department Care Team ([facility] st Contact Info) Description 11/06/2023 Refill [facility] CHC MED & PEDS [address] [place] [address] Ganesh Alvarado MD [address] [place] [address] Social History Tobacco Use Types Packs/Day Years [...]
--- OUTSIDE RECORDS SUMMARY | 2025-04-28 11:48 | XMS_ITS | Clinical Summary ---
Author Organization [employer] Address [address] [place] [address] 7t [place] [address] Care Team Providers Care Machine Fixer Name Role Phone Unavailable Primary Care Provider [...] 239 mg/dL HDL Cholesterol 41 mg/dL [facility] Comment: Desirable HDL: greater than 40 mg/dL Note: This HDL assay may give artificially low results in patients with liver disease. LDL Cholesterol Calculated 127 mg/dl [facility] Comment: Desirable LDL: less than [...] >60 [facility] Comment: NOTE: For -Swazi individuals, multiply the result by 1.210. Chronic Kidney Disease: Estimated GFR < 60 mL/min/1.73m2 Severe Kidney Disease: Estimated GFR < 15 mL/min/1.73m2 Glucose Fasting 110(H) 60 - 99 mg/dL [facility] Comment: A fasting glucose from 100-125 mg/dl is considered impaired (pre-diabetes). Potassium 4.8 3.3 - 5.1 mmol/l [facility] Sodium 143 135 - 145 mmol/L [facility] Total Protein 6.9 6.5 - 8.0 g/dL [facility] Vitamin D 25-OH Total 50.3 >30 ng/mL [facility] Comment: Health Based Reference [...] ORDERABLE LABS Final Result Performing Organization Address City/State/[facility] Co de Phone Number [facility] [address] [place] [address] * Mammography Report 1 (05/04/2020 9:06 AM [...] Recently Relevant to Health Maintenance Insurance [place] [address] [place] [id number]
--- OUTSIDE RECORDS SUMMARY | 2025-04-28 11:48 | XMS_ITS | Encounter Summary ---
Author Organization [employer] Address [address] [place] [address] 7 [place] [address] Care Team Providers Care Personal Investment Adviser Name Role Phone Unavailable Primary Care Provider Unavailabl e Reason for Visit * Reason Comments Med Refill Encounter Details Date Type Department Care Team ([facility] st Contact Info) Description 07/01/2024 Refill [facility] CHC MED & PEDS [address] [place] [address] Ganesh Alvarado MD [address] [place] [address] Social History Tobacco Use Types Packs/Day Years [...]
--- OUTSIDE RECORDS SUMMARY | 2025-04-28 11:48 | XMS_ITS | Encounter Summary ---
Author Organization [employer] Address [address] [place] [address] 7 [place] [address] Care Team Providers Care Capsule Filling Machine Operator Name Role Phone Unavailable Primary Care Provider Unavailabl e Reason for Visit * Reason Comments Med Refill Encounter Details Date Type Department Care Team ([facility] st Contact Info) Description 04/10/2024 Refill [facility] MED & PEDS [address] [place] [address] Ganesh Alvarado MD [address] [place] [address] Social History Tobacco Use Types Packs/Day Years [...]
== END 2025-04-28 10:33 | disposition home or self-care (01) ==
LOC: HO.HMCH 09:58
PROVIDERS: PCP Internal Medicine; Visit Provider Internal Medicine
DX: I10 Essential (primary) hypertension (principal); I42.9 Cardiomyopathy, unspecified; E11.9 Type 2 diabetes mellitus without complications; Z79.4 Long term (current) use of insulin; E89.0 Postprocedural hypothyroidism; M25.511 Pain in right shoulder; M54.31 Sciatica, right side; M54.32 Sciatica, left side

== ENCOUNTER → 2025-04-28 10:43 | Outpatient (BNV) | payer OTHER, SELFPAY | PROVIDERS: PCP Internal Medicine; Visit Provider Radiology Diagnostic Radiology | DX: M25.511 Pain in right shoulder (principal) | CPT/HCPCS: 73030 ==

== ENCOUNTER 2025-05-19 13:38 | Inpatient (IN) | payer OTHER, SELFPAY ==
--- NOTE | ~2025-05-19 | MR_ITS ---
CLINICAL HISTORY: Dizziness, headaches, vision changes MR Brain without gadolinium Comparison: CT/REG/SR - CT HEAD WITHOUT IV CONTRAST - 05/19/25 15:21 EST Findings: Small focus of diffusion restriction in the right occipital lobe. Scattered susceptibility weighted artifact in the left parietal lobe, likely represents hemosiderin deposition. Scattered T2/FLAIR hyperintensities in the deep white matter, nonspecific, however may represent sequela of chronic microvascular ischemic disease. No intra-axial mass or hemorrhage. No midline shift. No hydrocephalus. Vascular flow voids are intact. Bilateral lens replacements. The sinuses and mastoid air cells are clear. No focal bone lesion. IMPRESSION: Acute infarct in the right occipital lobe. This document has been electronically signed by: Diamond Cortes MD on 05/19/2025 18:54:53
--- NOTE | ~2025-05-19 | CT_ITS ---
EXAMINATION: CT HEAD WITHOUT IV CONTRAST HISTORY: assess recent CVA. TECHNIQUE: Unenhanced helical CT of the head was performed per standard departmental protocol. Coronal and sagittal reformats of the head were also evaluated. One or more of the following techniques was used for dose reduction: Automated exposure control, adjustment of the mA and/or kV according to patient size, use of iterative reconstruction technique. DLP: 723 mGy-cm COMPARISON: Comparison is made with the prior examination dated 05/21/2025. Correlation is also made with an MRI of the brain dated 05/19/2025. FINDINGS: BRAIN: There is diffuse prominence of the ventricular system and cortical sulci, consistent with atrophy. Periventricular and subcortical white matter hypodensities are noted which are nonspecific, but often seen in the setting of small vessel ischemic disease. Again seen is encephalomalacia in the right occipital and left parietal lobes consistent with old infarcts. There is no mass effect or midline shift. No intra- or extra-axial fluid collections are identified. SINUSES: The visualized paranasal sinuses are clear. The mastoid air cells and middle ear cavities are well pneumatized. ORBITS: The visualized orbits are unremarkable. BONES/SOFT TISSUES: The extracranial soft tissues are unremarkable. The calvarium is intact. No suspicious lytic or sclerotic lesions. CT/CT head/brain wo IV con IMPRESSION: Right occipital and left parietal infarcts. No acute intracranial abnormality. Electronically signed by: Kofi Ohara MD 05/22/2025 09:07 AM [facility]
--- NOTE | ~2025-05-19 | CT_ITS ---
EXAMINATION: CT HEAD WITHOUT CONTRAST CLINICAL INFORMATION: Headache, blurry vision COMPARISON: CT head 05/27/2018 TECHNIQUE: Contiguous axial imaging was performed from the skull base to vertex without intravenous administration of contrast. This CT examination was performed using dose optimization techniques as appropriate, variously including the following: *Automated exposure control *Adjustment of mA and/or kV according to patient size (this includes techniques or standardized protocols for targeted exams where dose is matched to indication/reason for exam; i.e. extremities or head) *Use of iterative reconstruction technique FINDINGS: There is no evidence of acute intracranial hemorrhage. Focus of hypoattenuation in the left parietal lobe, new as compared to the prior study. This could represent an age-indeterminate infarction. No edematous large vessel territorial infarction is otherwise seen. No abnormal mass effect or midline shift is seen. Crocker to white matter differentiation is well preserved. No abnormal extra-axial fluid collections are identified. Mild sulcus and ventricular prominence..There is patchy periventricular and subcortical white matter hypoattenuation, probably representing microangiopathic disease . Bilateral lens extraction. No acute calvarial fracture.. Paranasal sinuses and mastoid air cells are well-aerated. CT/CT head/brain wo IV con IMPRESSION: 1. No evidence of acute intracranial hemorrhage. 2. Focus of hypoattenuation in the left parietal lobe, new as compared to the prior study. This could represent an age-indeterminate infarction. Further evaluation with MRI as clinically indicated. 3. Patchy periventricular and subcortical white matter hypoattenuation, probably reflecting microangiopathic disease.. 4. Cause of patient's symptoms has not been determined. Further evaluation with CTA or MRI as clinically indicated. Electronically signed by: Kayode Michael MD 05/19/2025 03:51 PM [facility]
--- NOTE | ~2025-05-19 | CT_ITS ---
EXAMINATION: CT ANGIOGRAM HEAD AND NECK CLINICAL INFORMATION: rule out stroke. Recent small focal right occipital lobe infarct. Dysarthria, blurred vision COMPARISON: CT and MRI brain May 19, 2025 TECHNIQUE: Noncontrast axial imaging of the head was performed. This was followed by test bolus sequences and head and neck intravenous bolus administration of 70mL of Omnipaque 350. Helical imaging was performed in the axial plane from the aortic arch to the skull vertex. The data was processed at the angiography technologist's workstation for generation of MIP sequences. Angled MIPs and volume rendered reformatted images were also generated at an offline 3D workstation. Stenoses are assessed in accordance with NASCET criteria unless otherwise indicated. This CT examination was performed using dose optimization techniques as appropriate, variously including the following: *Automated exposure control *Adjustment of mA and/or kV according to patient size (this includes techniques or standardized protocols for targeted exams where dose is matched to indication/reason for exam; i.e. extremities or head) *Use of iterative reconstruction technique FINDINGS: NONCONTRAST HEAD CT: There is no evidence of intracranial hemorrhage or extra-axial fluid collection. There is no mass effect, or edema. Hypodensity is present in the right occipital lobe, most pronounced medially, where there was abnormality on MRI. However, there may be new abnormality more lateral to the aforementioned MRI changes. There is chronic encephalomalacia in the posterior left frontal lobe, unchanged. Ventricles, sulci, and cisterns are normal in size and configuration for patient age. No hydrocephalus. No midline shift. Globes and orbital contents image normally. No extracranial soft tissue abnormalities. The paranasal sinuses, mastoid air cells, and tympanic cavities are normally aerated. There are no suspicious bony abnormalities. NECK CTA: -AORTIC ARCH: Normal in caliber. Mild atheromatous calcification. Three-vessel branching pattern. -GREAT VESSEL ORIGINS: Widely patent. No stenosis. -RIGHT COMMON CAROTID ARTERY: Normal in course and caliber to the level of the bifurcation. -CERVICAL RIGHT INTERNAL CAROTID ARTERY: Mild atherosclerotic calcifications are present in the carotid bulb extending into the ICA origin. There is no hemodynamically significant stenosis. -LEFT COMMON CAROTID ARTERY: Normal in course and caliber to the level of the bifurcation. -CERVICAL LEFT INTERNAL CAROTID ARTERY: Mild atherosclerotic calcifications are present in the carotid bulb extending into the ICA origin. There is no hemodynamically significant stenosis. -CERVICAL RIGHT VERTEBRAL ARTERY: Right dominant. Normal in course and caliber into the skull base. -CERVICAL LEFT VERTEBRAL ARTERY: Right dominant. There appears to be cut off of the left vertebral artery at the level of mid C7. The vessel is redemonstrated at approximately C5-6. It is uncertain if there is actual occlusion of the vessel where the vessel is obscured by beam hardening artifact related to contrast refluxing into an adjacent vein. OTHER, SOFT TISSUES: -No lymphadenopathy or mass. No abnormal fluid collection or soft tissue swelling. -Normal thyroid. -Imaged superior mediastinal structures normal. -Imaged lung apices clear. CTA OF THE BRAIN: -INTRACRANIAL INTERNAL CAROTID ARTERIES: No focal stenosis or occlusion. Atherosclerotic ossification is visible in the carotid siphon. -RIGHT ANTERIOR CEREBRAL ARTERY: Normal A1 segment.. Normal arborization of the distal segments. -LEFT ANTERIOR CEREBRAL ARTERY: Normal A1 segment.. Normal arborization of the distal segments. -ANTERIOR COMMUNICATING ARTERY: Intact. -RIGHT MIDDLE CEREBRAL ARTERY: Normal M1 segment of the MCA without focal stenosis or occlusion. Normal bifurcation. Normal arborization of the distal segments. -LEFT MIDDLE CEREBRAL ARTERY: Normal M1 segment of the MCA without focal stenosis or occlusion. Normal bifurcation. Normal arborization of the distal segments. -RIGHT VERTEBRAL ARTERY V4: Normal in course and caliber. Normal PICA branch. -LEFT VERTEBRAL ARTERY V4: Normal in course and caliber. Normal PICA branch. -BASILAR ARTERY: Normal without focal stenosis or occlusion. Normal appearance of the proximal superior cerebellar arteries. Normal basilar tip. -RIGHT POSTERIOR CEREBRAL ARTERY: Normal P1 segment. Normal opacification of the distal DISH TECHNICIAN segments. -LEFT POSTERIOR CEREBRAL ARTERY: Normal P1 segment. Normal opacification of the distal DISH TECHNICIAN segments. -POSTERIOR COMMUNICATING ARTERIES: Not well demonstrated. Normal opacification of the superior sagittal, straight, transverse, and sigmoid sinuses. No venous thrombosis. No space-occupying hemorrhage or definite evolving infarct. CT/CT angio head neck IMPRESSION: NONCONTRAST HEAD CT: Subacute right occipital lobe infarct is possibly increasing in size when compared with MRI from 2 days ago. CTA NECK: There is abrupt cut off of the left vertebral artery at the level of C7 and vessel is again identified at approximately C5-6. It is uncertain if the cut off is due to occlusion or if it is related to beam hardening artifact secondary to refluxed contracts into an adjacent vein. Otherwise, no hemodynamically significant stenosis. CTA HEAD: No cut off or visualized hemodynamically significant stenosis. Result Read by Dr. Eugene Quick at 5:16 EST via [place] Electronically signed by: Walt Guy MD 05/21/2025 05:18 PM EST
[2025-05-19 13:49] VITALS: BP 152/70; PULSE 68; O2SAT 98
[2025-05-19 13:50] VITALS: BP 125/48; PULSE 58; RESP 18; TEMP 36.6; O2SAT 100; BMI 32.7
--- NOTE | 2025-05-19 13:58 | ECG_ITS ---
Test Reason : CP Blood Pressure : */* mmHG Vent. Rate : 51 BPM Atrial Rate : 51 BPM P-R Int : 164 ms QRS Dur : 124 ms QT Int : 476 ms P-R-T Axes : 99 -46 -36 degrees QTcB Int : 438 ms Sinus bradycardia with sinus arrhythmia Right bundle branch block Left anterior fascicular block Bifascicular block Abnormal ECG When compared with ECG of 06-Mar-2025 10:07, Significant changes have occurred Referred By: Mia Diaz Electronically Signed By: DEMETRIS MIX
--- NOTE | 2025-05-19 13:58 | PC.NURSE ---
Provider aware that ems reports patient stating she is dizzy with a headache, mixer operator hot metal called
[2025-05-19 14:01] LABS: Glucose, Whole Blood 250 mg/dL (60-115)
[2025-05-19 15:21] LABS: Hemoglobin 10.5 g/dl (12.0-16.0); Imm Gran Abs Auto 0.03 X10*3/uL (0.00-0.03); Imm Gran Pct Auto 0.4 % (0.0-0.4); MANUAL DIFF FLAG SCAN; NRBC Abs Auto 0.000 X10*3/uL (0.0-0.012); NRBC Pct Auto 0.0 /100WBC (0.0-0.2); SCAN SMEAR FLAG 1
[2025-05-19 15:23] LABS: Hematocrit 35.4 % (37.0-47.0); Lymphocytes Absolute Auto 2.7 X10*3/uL (1.2-4.9); Mean Corpuscular HGB Conc 29.7 g/dl (31.0-35.0); Mean Corpuscular Hemoglobin 18.5 pg (27.0-33.0); Mean Corpuscular Volume 62.2 fL (80.0-98.0); PLT ABN DIST 1; Platelet Count 371 X10*3/uL (160-400); Red Blood Count 5.69 X10*6/uL (4.20-5.50); White Blood Count 7.8 X10*3/uL (4.8-10.8)
[2025-05-19 15:30] LABS: INTERNATIONAL NORM RATIO 1.1 (0.9-1.1); Prothrombin Time 13.8 SEC (11.2-13.5)
--- NOTE | 2025-05-19 15:30 | ED_ITS ---
HPI - General Adult General Chief complaint: General Medical Stated complaint: BLURRED VISION HYPERGLYCEMIC Time Seen by Provider: 05/19/25 14:43 Source: patient, EMS, old records reviewed and aerial photograph interpreter Mode of arrival: EMS Limitations: other (Poor historian) History of Present Illness ED Provider: NAS LIND narrative: This is a 70-year-old female with past medical history of cardiomyopathy, hypothyroidism, anemia, diabetes, hypertension, hyperlipidemia, AFib on Eliquis who presents with waking up around 08:00 feeling her vision in both eyes is blurry. She reports a mild headache. She denies any trauma to the eyes, she states things just look fuzzy no matter what eye she looks out of. She denies any recent head trauma. She also reports elevated blood sugar. She states she feels dizzy at times. She states she went to bed around 20:00 or 21:00 last night normal but then woke up and felt weird. she has no other numbness or weakness. She denies any infectious symptoms. She denies any chest pain or trouble breathing. She notes she had prior cataract surgery a few years ago at the office near [facility] on [facility]. She states she can see but things look fuzzy on the sides. MD complaint: Blurry vision Onset (ago): hour(s) (Last known well 8 or 21:00 last night) Location: head and eyes Radiation: non-radiation Severity: mild Quality: aching Pain Consistency: constant Relieving factors: none Exacerbating factors: none Associated symptoms: malaise and other (Dizziness, headache, blurry vision) Treatments prior to arrival: none Related Data Home Medications ?Medication ?Instructions ?Recorded ?Confirmed apixaban 5 mg tablet (Eliquis) 5 mg PO BID 10/01/24 insulin degludec 100 unit/mL (3 12 unit subcut DAILY 0 03/31/25 05/19/25 mL) subcutaneous pen (Tresiba FlexTouch U-100 insulin) insulin lispro 100 unit/mL 0 sliding scale dose subcut TID 03/31/25 05/19/25 subcutaneous pen (Humalog KwikPen (U-100) Insulin) lisinopril 10 mg tablet 5 mg PO DAILY 05/19/2505/19 Previous Rx's ?Medication ?Instructions ?Recorded lancets 33 gauge (OneTouch Delica #100 ea 01/22/23 Plus Lancet) blood pressure test kit-large #1 ea 04/23/23 blood-glucose meter (OneTouch #1 ea 11/19/23 Ultra2 Meter) air conditioner #1 ea 01/13/24 incontinence pad, liner, disp #120 ea 01/13/24 lancets 28 gauge (FreeStyle #100 ea 03/12/24 Lancets) balance #1 ea 04/14/24 cholecalciferol (vitamin D3) 50 50 mcg PO DAILY #28 ca ps 06/23/24 mcg (2,000 unit) capsule (Vitamin D3) nebulizers #1 ea 07/02/24 Grab bar #1 ea 09/02/24 blood-glucose,bond manager,cont #1 ea 11/28/24 (Dexcom G7 Customer Care Consultant) glucose 4 gram chewable tablet 16 g (4 x 4 gram) PO Q1 5M PRN 11/28/24 (Dex4 Glucose) hypoglycemia (hipoglucemia) #10 tabs Dexcom G7 Sensor (blood-glucose #3 ea 01/13/25 sensor) incontinence pad, liner, disp #264 ea 02/06/25 latex gloves (Latex Gloves, Large) #240 ea 02/06/25 underpads (Bed Underpads) #300 ea 02/06/25 wipes flushable #240 ea 02/06/25 blood sugar diagnostic (OneTouch #100 ea 02/27/25 Ultra Test strips) rosuvastatin 40 mg tablet 40 mg PO DAILY 90 days #90 t abs 04/13/25 Ventolin HFA 90 mcg/actuation 2 puff inhalation Q6H MD N 04/14/25 aerosol inhaler (albuterol sulfate) shortness of breat h or wheezing 30 days #8 grams levothyroxine 137 mcg tablet 137 mcg PO DAILY@0600 #30 tabs 04/14/25 tirzepatide 10 mg/0.5 mL 10 mg (0.5 mL) subcut QWEEK #2 mL 04/27/25 subcutaneous pen injector (Mounjaro) Allergies Allergy/AdvReac Type Severity Reaction Status Date / Time empagliflozin (From Allergy Intermediate ITCHY/RASH Verified 05/19/25 13:53 JARDIANCE) dulaglutide (From Trulicity) AdvReac Intermediate Abdominal Verified 05/19/25 13:53 Pain JARDIANCE Allergy Intermediate pruritus Uncoded 05/19/25 13:53 Review of Systems 2 Review of Systems: Constitutional : No Fever, No Chills, No Fatigue ENT/Mouth : No sore throat, No Rhinorrhea Eyes: No Eye Pain, No Swelling, No Redness, positive blurry vision Cardiovascular : No Chest Pain, No SOB, No Dyspnea on Exertion Respiratory : No Cough, No Sputum Gastrointestinal : No Nausea, No Vomiting, No Diarrhea, No abdominal Pain Genitourinary : No Dysuria, No Urinary Frequency, No Hematuria, Musculoskeletal : No joint pain, No Myalgias, No Joint Swelling Skin : No Skin Lesions, No rash Neuro : No Weakness, No Numbness, positive Dizziness, positive Headache All other systems reviewed and are negative [facility] Past Medical History Attestation statement: The following information was validated with the patient. 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 Mother Arthritis Social History Social History Household Members: Spouse and Children Housing: Apartment Do you presently have visiting nurse or other home services: Yes (Daughter is [employer] SALES REPRESENTATIVE) Alcohol intake: never Patient Tobacco Use Status: Never used Tobacco Smoked in Last 30 Days: No e-Cigarette/Vaping Use: Never Used Second Hand Smoke Exposure: No Use of substances other than those prescribed or required for medical reasons: No Advance Directives: No Advance Directives Information Provided: Yes Do you have a plan to hurt others: No Plan Nutrition Risks: No Nutritional Risk service: No Current occupational status: disabled Cognitive needs: No Hearing needs: No Vision needs: No Physical Exam ED Vital Signs: Vital Signs - 24 hr 05/19/25 13:50 05/19/25 19:12 Temperature 97.9 F 98.4 F Pulse Rate 58 68 Respiratory Rate 18 18 Blood Pressure 125/48 L 130/90 H Pulse Oximetry 100 99 Oxygen Delivery Method Room Air Room Air BMI result Body Mass Index 32.7 Appearance: Alert. Oriented X3. No acute distress. Eyes: Pupils they are pinpoint she obviously had prior cataract surgery, her right people slightly asymmetric to the left she is not sure if this is old or new, slight irregularity to R pupil. Right eye pressure 18, left eye pressure 20 ENT: Pharynx normal. Neck: Normal inspection. Neck supple. CVS: Normal heart rate and rhythm. Pulses normal. Respiratory: No respiratory distress. Breath sounds normal. Abdomen: Soft and nontender. Skin: Skin warm and dry. Normal skin color. Normal skin turgor. Extremities: No lower extremity edema. No calf ttp Neuro: Oriented X 3. No motor deficit. No sensory deficit. CN2-12 intact NIH Stroke Scale Internal: Initial- Upon Arrival Level of Consciousness: Alert Level of Consciousness Questions: Answers both questions correctly Level of Consciousness Commands: Performs both tasks correctly Best Gaze: Normal Visual: No visual loss Facial Palsy: Normal Motor Arm (Right): No drift Motor Arm (Left): No drift Motor Leg (Right): No drift Motor Leg (Left): No drift Limb Ataxia: Absent Sensory: Normal Best Language: No aphasia Dysarthia: Normal Extinction and Inattention: No abnormality Score: 0 Course Course Course Narrative: Hodan Guadarrama DO 05/19/25 1550 last visit to eye doctor was 2020, she no shows for visits 4:01 PM 05/19/2025 (NAS MCEKON): Given her CT scan I am going to obtain MRI possibly for 17:30, we will sign out to Dr. Parada's pending further workup. If her MRI is negative we will DC home to see her eye doctor. Sign out to Dr. Cleveland 4 p.m. Medications Administered Generic Name Dose Route Start Last Admin Trade Name Freq PRN Reason Stop Dose Admin Acetaminophen 975 mg 05/19/25 20:56 05/20/25 06:07 Acetaminophen 325 Mg Tablet PO 975 mg Q6H PRN Administration Pain, Mild 1-3,fever,headache Aspirin 81 mg 05/20/25 09:00 05/20/25 08:18 Aspirin Enteric Coated 81 Mg Tablet. PO 81 mg DAILY RENU Administration Atorvastatin Calcium 80 mg 05/20/25 09:00 05/20/25 08:18 Atorvastatin Calcium 80 Mg Tablet PO 80 mg DAILY [facility] Administration Insulin Human Lispro 0 unit 05/19/25 21:00 05/20/25 07:05 Insulin Lispro 100 Unit/Ml 3 Ml Vial SUBCUT Not Given QIDACHS [facility] Protocol Levothyroxine Sodium 112 mcg/ 137 mcg 05/20/25 06:00 05/20/25 06:07 Levothyroxine Sodium 25 mcg PO 137 mcg DAILY@0600 [facility] Administration Oxycodone HCl 5 mg 05/19/25 20:56 05/20/25 06:07 Oxycodone Hcl Immed Release 5 Mg Tablet PO 5 mg Q6H PRN Administration Pain, Severe (Pain Scale 7-10) Sodium Chloride 3 ml 05/20/25 00:00 05/20/25 07:36 0.9 % Sodium Chloride Flush 3 Ml Syringe IVFLUSH Not Given QSHIFT [facility] Vitamin D 50 mcg 05/20/25 09:00 05/20/25 08:17 Cholecalciferol (Vitamin D3) 25 Mcg Tablet PO 50 mcg DAILY [facility] Administration Discontinued Medications Generic Name Dose Route Start Last Admin Trade Name Freq PRN Reason Stop Dose Admin Apixaban 5 mg 05/19/25 19:15 05/19/25 20:29 Apixaban 5 Mg Tablet PO 05/19/25 19:16 5 mg ONCE ONE Administration Morphine Sulfate 2 mg 05/19/25 15:38 05/19/25 15:46 Morphine Sulfate 4 Mg/Ml Cartridge IVPUSH 05/19/25 15:39 2 mg ONCE ONE Administration Protocol Ondansetron HCl 4 mg 05/19/25 15:38 05/19/25 15:43 Ondansetron Hcl 4 Mg/2 Ml Vial IVPUSH 05/19/25 15:39 4 mg ONCE ONE Administration Medical Decision Making Medical Decision Making [facility] Narrative: This is a 70-year-old female with past medical history of cardiomyopathy, hypothyroidism, anemia, diabetes, hypertension, hyperlipidemia, AFib on Eliquis here with complaint of bilateral blurry vision, she does have some people irregularity though it is unclear if this is old or new I will ask again as she has prior cataract surgery. She has no other neuro deficits, I do not suspect bilateral blurry vision of eyes would be LVO and seems atypical for stroke but it is on the differential. I have ordered basic labs, CT head for intracranial hemorrhage/lesion given Eliquis use we will treat her symptoms and reassess. She is not a candidate for TNK given DOAC but also symptoms started > 4.5 hours ago she reports last known well was around 8pm last night. I received sign-out from my colleague Dr. Guadarrama The MRI report shows an acute infarct in the right occipital lobe Patient is already on Eliquis, patient states that she is not 100% compliant with her medications. Patient states that she did not take her Eliquis today. I discussed the patient with Dr. Christy, patient is being admitted. I discussed the above-mentioned with the patient, patient is agreeable. Differential Diagnosis Differential Diagnoses: The differential diagnosis associated with the presentation includes Dehydration, cataract, headache, intracranial hemorrhage, CVA Admission/Observation Consideration of admission/observation: Escalation of care including admission/observation considered She has abnormal CAT scan. We will obtain MRI at 17:30 pending that would anticipate she can go home if there is no acute stroke she is already on Eliquis Lab Data MDM Lab Attestation statement: I reviewed the patient's lab results. Her labs do not suggest any acute hypoglycemia causing 05/20/25 04:24 05/20/25 04:24 Labs: Lab Results 05/19/25 05/19/25 Range/Units 13:55 15:08 WBC 7.8 (4.8-10.8) X10*3/uL RBC 5.69 H (4.20-5.50) X10*6/uL Hgb 10.5 L (12.0-16.0) g/dl Hct 35.4 L (37.0-47.0) % MCV 62.2 L (80.0-98.0) fL MCH 18.5 L (27.0-33.0) pg MCHC 29.7 L (31.0-35.0) g/dl RDW 17.2 H (11.0-16.0) % Plt Count 371 (160-400) X10*3/uL MPV Not Reportable Immature Gran % (Auto) 0.4 (0.0-0.4) % Neut % (Auto) 56.8 (45-73) % Lymph % (Auto) 35.2 (20-40) % Morrill % (Auto) 6.3 (2-11) % Eos % (Auto) 0.3 (0-4) % Baso % (Auto) 1.0 (0-2) % Lymph # (Auto) 2.7 (1.2-4.9) X10*3/uL Morrill # (Auto) 0.5 (0.1-1.2) X10*3/uL Eos # (Auto) 0.0 (0.0-0.4) X10*3/uL Baso # (Auto) 0.1 (0.0-0.2) X10*3/uL Abs Immat Gran (auto) 0.03 (0.00-0.03) X10*3/uL Absolute Neuts (auto) 4.4 (2.0-8.3) x10*3/uL Absolute Nucleated RBC 0.000 (0.0-0.012) X10*3/uL Nucleated RBC % (auto) 0.0 (0.0-0.2) /100WBC Smear Tech's Comments VERIFIED PT 13.8 H (11.2-13.5) SEC INR 1.1 (0.9-1.1) Sodium 139 (135-145) mmol/L Potassium 4.8 D (3.3-5.1) mmol/L Chloride 105 (96-108) mmol/L Carbon Dioxide 24 (22-29) mmol/L Anion Gap 15 (12-20) BUN 17 H (9-16) mg/dL Creatinine 0.92 (0.5-1.4) mg/dL Estim Creat Clear Calc 57.7 Estimated GFR > 60 POC Glucose 250 H (60-115) mg/dL Random Glucose 239 H (60-115) mg/dL Calcium 9.3 D (8.4-10.2) mg/dL Magnesium 1.7 (1.6-2.6) mg/dL Total Bilirubin 0.5 (0.0-1.0) mg/dL AST 27 (5-31) U/L ALT 8 (0-31) U/L Alkaline Phosphatase 95 (39-117) U/L Troponin I High Sens 6.0 (<3.5-17.0) ng/L Total Protein 7.5 (6.5-8.0) g/dL Albumin 4.1 (3.5-5.0) g/dL Triglycerides 114 (<150) mg/dL Cholesterol 189 (<200) mg/dL LDL Cholesterol, Calc 132 H (<100) mg/dL HDL Cholesterol 35 L (>40) mg/dL Influenza Type A (PCR) NEGATIVE (Negative) Influenza Type B (PCR) NEGATIVE (Negative) RSV RNA Qual (PCR) NEGATIVE (Negative) SARS-CoV-2 RNA (RT-PCR) NEGATIVE (Negative) Independent Interpretation I performed an independent interpretation of an: EKG, CT Scan (New parietal lesion) and MRI Interpretation: Rate: 51 Rhythm: Normal sinus with PACs Bivins: Left Normal P waves. Normal RADHA. Right bundle-branch block ST T wave : No ST-elevation but inverted T-waves in III, AVF, V1, V3, V4, V5, V6 qTC: 438 prior studies: It does appear she had these T-wave inversions on September of 2024 but she was in AFib then The study has been interpreted contemporaneously by me. . Radiology Impression Discussion of test interpretation with radiology: I have reviewed the radiologist's reading. Radiologist Impression: Small focus of diffusion restriction in the right occipital lobe. Scattered susceptibility weighted artifact in the left parietal lobe, likely represents hemosiderin deposition. Scattered T2/FLAIR hyperintensities in the deep white matter, nonspecific, however may represent sequela of chronic microvascular ischemic disease. No intra-axial mass or hemorrhage. No midline shift. No hydrocephalus. Vascular flow voids are intact. Bilateral lens replacements. The sinuses and mastoid air cells are clear. No focal bone lesion. IMPRESSION: Acute infarct in the right occipital lobe. Independent Historian Clinical information obtained from an independent historian. History obtained from or confirmed by: EMS External Record Review External record reviewed: Inpatient record, Outpatient record, Prior outpatient labs and Prior outpatient radiology Critical Care Time Critical Care Time Critical Care Time: Yes Total Critical Care Time: 60 Attestation: I have personally provided critical care time. Time includes review of lab data, radiology results, discussion with consultants, and monitoring for potential decompensation. Intervention performed as documented. Discharge Plan Discharge Clinical Impression: Blurred vision, Dizziness, Abnormal CT scan of head, Acute CVA (cerebrovascular accident) Headache Qualifiers: Headache type: unspecified Headache chronicity pattern: acute headache I ntractability: not intractable Qualified Code(s): R51.9 - Headache, unspecified Patient Disposition: Admitted As Inpatient
[2025-05-19 15:34] LABS: Troponin-I High Sensitivity 6.0 ng/L (<3.5-17.0)
[2025-05-19 15:37] LABS: Alanine Aminotransferase 8 U/L (0-31); Albumin Level 4.1 g/dL (3.5-5.0); Alkaline Phosphatase 95 U/L (39-117); Anion Gap 15 (12-20); Aspartate Amino Transferase 27 U/L (5-31); Blood Urea Nitrogen 17 mg/dL (9-16); Calcium 9.3 mg/dL (8.4-10.2); Carbon Dioxide 24 mmol/L (22-29); Chloride 105 mmol/L (96-108); Creatinine Clr Calc Pharmacy 57.7; Estimated Glomerular Filt Rate > 60; Magnesium 1.7 mg/dL (1.6-2.6); Potassium 4.8 mmol/L (3.3-5.1); Sodium 139 mmol/L (135-145); Total Protein 7.5 g/dL (6.5-8.0)
[2025-05-19 15:56] LABS: Resp Syncy Virus RNA Qual PCR NEGATIVE (Negative); SARS COV2 PCR INHOUSE NEGATIVE (Negative)
--- NOTE | 2025-05-19 16:33 | PC.NURSE ---
MRI screening form completed with patient via trackless trolley driver
[2025-05-19 19:12] VITALS: BP 130/90; PULSE 68; RESP 18; TEMP 36.9; O2SAT 99
--- NOTE | 2025-05-19 19:15 | PC.NURSE ---
20 g IV in left hand
--- NOTE | 2025-05-19 20:29 | PHA.MEDREC ---
Addendum entered by Michelle Gleason [facility] 05/20/25 09:16: Lisinopril dose per [place] = 5 mg daily Patient last fill for Metoprolol on 10/04/24 x 90 days Patient last fill for Diltiazem on 03/06/25 x 30 days. PCP note from April states patient should be on metoprolol and diltiazem. Prescribers for these medications are [facility] doctors over the last year. 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 Contacted Dr. Kevin Quick and let him know that I added these medications to patients med rec and all of the information above. Let MD know that it is unknown if patient should be on these medication/or non-compliant. Original Note: Pharmacy Consult ? Medication Reconciliation Pharmacy has completed the medication reconciliation. Following up in am with pt's pharmacy to check if pt still on toprol or diltiazem
[2025-05-19 21:15] LABS: Glucose, Whole Blood 163 mg/dL (60-115)
[2025-05-19 21:46] LABS: Cholesterol 189 mg/dL (<200); HDL Cholesterol 35 mg/dL (>40); Triglycerides 114 mg/dL (<150)
--- NOTE | 2025-05-19 21:56 | PM.IMHP ---
History of Present Illness Date of Service: 05/19/25 Attending physician on admission: Jose David Cole Chief Complaint: blurry vision Patient is a 70-year-old female with a past medical history significant for AFib on Eliquis (noncompliant), insulin-dependent diabetes with diabetic retinopathy, cardiomyopathy, hypothyroid, chronic anemia and hypertension, who presented to the ED due to blurry vision headache and dizziness starting today. The blurry vision is in both eyes, pain behind the right eye. She also reported elevated blood sugars. She denies any numbness weakness or gait instabilities. Has a history of cataract surgery and her administrative support assoc was contacted by the ED provider who suggested the patient is noncompliant with diabetic retinopathy care. She denies any shortness of breath, chest pain, nausea, vomiting or urinary symptoms including frequency, urgency or dysuria. Review of Systems Constitutional: Constitutional: Denies body ache(s), Denies chills, Denies fatigue, Denies fever(s) and Reports headache(s) Eyes: Eyes: Reports as per HPI and Reports change in vision ENT: Reports headache(s), Denies nasal congestion, Denies nasal discharge and Denies sore throat Cardiovascular: Cardiovascular: Denies chest pain, Denies rapid heart rate, Denies leg edema, Denies lightheadedness and Denies dyspnea Respiratory: Respiratory: Denies chest congestion, Denies cough, Denies dyspnea and Denies wheezing Gastrointestinal: Gastrointestinal: Denies abdominal pain, Denies diarrhea, Denies nausea and Denies vomiting Genitourinary: Genitourinary: Denies difficulty voiding, Denies dysuria and Denies urinary urgency Musculoskeletal: Musculoskeletal: Denies myalgias Integumentary/Breasts: Skin/Breast: Denies rash Neurologic: Denies confusion and Reports headache(s) Psychiatric: Psychiatric: Denies confusion Endocrine: Endocrine: Denies fatigue Hematologic/Lymphatic: Hematologic/Lymphatic: Denies easy bleeding Allergic/Immunologic: Allergic/Immunologic: Denies wheezing [facility] Medical History Class 1 obesity Atrial fibrillation Hypothyroidism Asthma Pericardial effusion Pneumonitis Pleural effusion Hypoglycemia unawareness associated with type 2 diabetes mellitus Post-surgical hypothyroidism rn long term care (current) use of insulin Postsurgical hypothyroidism Thyroid cancer Dyslipidemia Essential hypertension Hyperparathyroidism Vitamin D deficiency Obesity (BMI 30-39.9) Diabetes type 2, uncontrolled Family History Father No problems noted. Mother Arthritis Surgical History Hx of colonoscopy Hx of total thyroidectomy Hx of hysterectomy Social History Household Members: Spouse and Children Housing: Apartment Do you presently have visiting nurse or other home services: Yes (Daughter is [employer]) Alcohol intake: never Patient Tobacco Use Status: Never used Tobacco Smoked in Last 30 Days: No e-Cigarette/Vaping Use: Never Used Second Hand Smoke Exposure: No Use of substances other than those prescribed or required for medical reasons: No Advance Directives: No Advance Directives Information Provided: Yes Do you have a plan to hurt others: No Plan Nutrition Risks: No Nutritional Risk service: No Current occupational status: disabled Cognitive needs: No Hearing needs: No Vision needs: No Meds Allergies Allergy/AdvReac Type Severity Reaction Status Date / Time empagliflozin (From Allergy Intermediate ITCHY/RASH Verified 05/19/25 13:53 JARDIANCE) dulaglutide (From Trulicity) AdvReac Intermediate Abdominal Verified 05/19/25 13:53 Pain JARDIANCE Allergy Intermediate pruritus Uncoded 05/19/25 13:53 Active Medications: Current Medications Acetaminophen (Acetaminophen 325 Mg Tablet) 975 mg PO Q6H PRN PRN Reason: Pain, Mild 1-3,fever,headache Albuterol Sulfate (Albuterol Sulfate 90 Mcg 8 Gm Inhaler) 2 puff INHALE Q6H PRN PRN Reason: shortness of breath or wheezing Aspirin (Aspirin Enteric Coated 81 Mg Tablet.Dr) 81 mg PO DAILY [facility] Atorvastatin Calcium (Atorvastatin Calcium 80 Mg Tablet) 80 mg PO DAILY [facility] Calcium Carbonate (Calcium Carbonate 750 Mg Tab.Chew) 750 mg PO Q4H PRN PRN Reason: Heartburn Dextrose (Dextrose 50 % 25 Gm/50 Ml Syringe) 25 gm IVPUSH Q15M PRN; Protocol PRN Reason: per Hypoglycemia Standing Ord. Glucose (Glucose Gel 15 Gm Gel..Gram.) 15 gm PO Q15M PRN; Protocol PRN Reason: per Hypoglycemia Standing Ord. Insulin Human Lispro (Insulin Lispro 100 Unit/Ml 3 Ml Vial) 0 unit SUBCUT QIDACHS [facility]; Protocol Levothyroxine Sodium 112 mcg/ (Levothyroxine Sodium 25 mcg) 137 mcg PO DAILY@0600 [facility] Magnesium Hydroxide (Milk Of Magnesia 30 Ml Oral.Susp) 30 ml PO DAILY PRN PRN Reason: Constipation Melatonin (Melatonin 3 Mg Tablet) 6 mg PO BEDTIME PRN PRN Reason: Insomnia Ondansetron HCl (Ondansetron Hcl 4 Mg/2 Ml Vial) 4 mg IVPUSH Q8H PRN PRN Reason: Nausea and Vomiting Oxycodone HCl (Oxycodone Hcl Immed Release 5 Mg Tablet) 5 mg PO Q6H PRN PRN Reason: Pain, Severe (Pain Scale 7-10) Sodium Chloride (0.9 % Sodium Chloride Flush 3 Ml Syringe) 3 [facility] Tramadol HCl (Tramadol Hcl 50 Mg Tablet) 50 mg PO Q6H PRN PRN Reason: Pain, Moderate(Pain Scale 4-6) Vitamin D (Cholecalciferol (Vitamin D3) 25 Mcg Tablet) 50 mcg PO DAILY [facility] Home Medications ?Medication ?Instructions ?Recorded ?Confirmed ?Last Taken ?Type apixaban 5 mg tablet (Eliquis) 5 mg PO BID 10/01/24 05/19/25 09/30/24 History insulin degludec 100 unit/mL (3 12 unit subcut DAILY 03/31/25 05/19/25 Unknown History mL) subcutaneous pen (Tresiba FlexTouch U-100 insulin) insulin lispro 100 unit/mL 0 sliding scale dose subcut TID 03/31/25 05/19/25 Unknown History subcutaneous pen (Humalog KwikPen (U-100) Insulin) lisinopril 10 mg tablet 5 mg PO DAILY 05/19/25 05/19/25 Unknown History Physical Exam Vital Signs and Narrative: Vital Signs: Last Vital Signs Temp 98.4 F 05/19/25 19:12 Pulse 68 05/19/25 19:12 Resp 18 05/19/25 19:12 BP 130/90 H 05/19/25 19:12 Pulse Ox 99 05/19/25 19:12 O2 Del Method Room Air 05/19/25 19:12 BMI result Body Mass Index 32.7 General: AOx3, no acute distress, seen with chief unit forester and family member bedside Resp: CTA bilaterally CVS: Irregularly irregular GI: +BS, NT, no distention Skin: Warm, dry Neuro: Cranial nerves II-XII grossly intact bilaterally. Motor grossly intact bilaterally. Strength and sensation intact equally bilateral upper and lower extremities throughout. Visual field loss, left peripheral vision Extremities: No pitting edema Psych: Appropriate affect Const: General: No confusion Orientation/consciousness: No confusion Neuro: General: No confusion Results Labs 05/19/25 15:08 05/19/25 15:08 Labs: Laboratory Results - last 24 hr 05/19/25 05/19/25 05/19/25 13:55 15:08 21:12 MCV 62.2 L MCH 18.5 L MCHC 29.7 L RDW 17.2 H Plt Count 371 MPV Not Reportable Immature Gran % (Auto) 0.4 Neut % (Auto) 56.8 Lymph % (Auto) 35.2 [place] % (Auto) 6.3 Eos % (Auto) 0.3 Baso % (Auto) 1.0 Lymph # (Auto) 2.7 [place] # (Auto) 0.5 Eos # (Auto) 0.0 Baso # (Auto) 0.1 Abs Immat Gran (auto) 0.03 Absolute Neuts (auto) 4.4 Absolute Nucleated RBC 0.000 Nucleated RBC % (auto) 0.0 Smear Tech's Comments VERIFIED PT 13.8 H INR 1.1 Anion Gap 15 Estim Creat Clear Calc 57.7 Estimated GFR > 60 POC Glucose 250 H 163 H Random Glucose 239 H Calcium 9.3 D Magnesium 1.7 Total Bilirubin 0.5 AST 27 ALT 8 Alkaline Phosphatase 95 Troponin I High Sens 6.0 Total Protein 7.5 Albumin 4.1 Triglycerides 114 Cholesterol 189 LDL Cholesterol, Calc 132 H HDL Cholesterol 35 L Influenza Type A (PCR) NEGATIVE Influenza Type B (PCR) NEGATIVE RSV RNA Qual (PCR) NEGATIVE SARS-CoV-2 RNA (RT-PCR) NEGATIVE Imaging Radiologist's Impressions: Impressions Head CT 05/19/25 15:21 IMPRESSION: 1. No evidence of acute intracranial hemorrhage. 2. Focus of hypoattenuation in the left parietal lobe, new as compared to the prior study. This could represent an age-indeterminate infarction. Further evaluation with MRI as clinically indicated. 3. Patchy periventricular and subcortical white matter hypoattenuation, probably reflecting microangiopathic disease.. 4. Cause of patient's symptoms has not been determined. Further evaluation with CTA or MRI as clinically indicated. Electronically signed by: Kayode Michael MD 05/19/2025 03:51 PM [facility] Assessment and Plan (1) Acute CVA (cerebrovascular accident): Status: Acute (2) Headache: Qualifiers: Headache chronicity pattern: acute headache Headache type: unspecified Intractability: not intractable Qualified Code(s): R51.9 - Headache, unspecified Status: Acute (3) Blurred vision: Status: Acute (4) Class 1 obesity: Status: Acute Plan Patient is a 70-year-old female with a past medical history significant for AFib on Eliquis (noncompliant), insulin-dependent diabetes with diabetic retinopathy, cardiomyopathy, hypothyroid, chronic anemia and hypertension, who presented to the ED due to blurry vision headache and dizziness starting today. acute CVA, R occipital infarct on MRI - echo with bubble study - tele - neuro consult - lipid panel - ASA 81mg - PT/OT - hold eliquis pending neuro consult paroxysmal a fib - hold eliquis as above - continue rate control IDDM - diabetic diet - SSI - hold degludec due to normal BS, resume tomorrow if BS increases at reduced dose of lantus 5U QD hypothyroid - levothyroxine chronic anemia, at baseline - monitor CBC HTN - BP soft, allow permissive HTN at this time, treat if SBP >200 - hold lisinopril Class 1 obesity - BMI 32.7 - weight loss encouraged DNR/DNI, discussed with the patient and family member bedside VTE prophylaxis: Pneumoboots Patient with acute CVA, requiring admission for at least 2 midnights stay for further evaluation and monitoring. Quality Stroke Does the patient have a stroke diagnosis?: Yes Reason for No Anti-thrombotic by Day Two: Contraindicated VTE Prior VTE?: No VTE Risk Level:: Medical - moderate - high VTE Device Contraindication: N/A - Device Ordered VTE Drug Contraindication: Treatment Not Indicated
[2025-05-19 22:15] VITALS: BP 141/50; PULSE 96; RESP 18; TEMP 36.8; O2SAT 99
[2025-05-19] MEDS: oxyCODONE HCl Immed Release 5 MG TABLET PO (22:18)
--- NOTE | 2025-05-19 23:55 | HO.NURTONUR ---
Pt is a 70 y.o. female coming in with blurry vision and a headache. PMH cardiomyopathy, hypothyroidism, anemia, diabetes, hypertension, hyperlipidemia, AFib on Eliquis. Labs grossly unremarkable, covid/flu neg. Head CT shows 1. No evidence of acute intracranial hemorrhage. 2. Focus of hypoattenuation in the left parietal lobe, new as compared to the prior study. This could represent an age-indeterminate infarction. Further evaluation with MRI as clinically indicated. 3. Patchy periventricular and subcortical white matter hypoattenuation, probably reflecting microangiopathic disease.. 4. Cause of patient's symptoms has not been determined. Further evaluation with CTA or MRI as clinically indicated. MRI Brain shows acute infarct in right occipital lobe. Pt medicated per MAR orders. No acute change in neuro status, pt continuing to report a headache and blurry vision. Denies any numbness/tingling, no facial droop or slurred speech. VSS, a&ox4. 20 g IV in the left hand
[2025-05-20] VITALS (10 sets, daily range): BP systolic 107–151; BP diastolic 39–68; PULSE 53–60; RESP 14–20; TEMP 36.3–37; O2SAT 94–100; BMI 33.6
[2025-05-20 04:58] LABS: Hematocrit 32.0 % (37.0-47.0); Hemoglobin 9.5 g/dl (12.0-16.0); Mean Corpuscular HGB Conc 29.7 g/dl (31.0-35.0); Mean Corpuscular Hemoglobin 18.6 pg (27.0-33.0); NRBC Abs Auto 0.000 X10*3/uL (0.0-0.012); NRBC Pct Auto 0.0 /100WBC (0.0-0.2); Platelet Count 347 X10*3/uL (160-400); Red Blood Count 5.11 X10*6/uL (4.20-5.50); White Blood Count 8.0 X10*3/uL (4.8-10.8)
[2025-05-20 04:59] LABS: Mean Corpuscular Volume 62.6 fL (80.0-98.0)
[2025-05-20 05:13] LABS: Anion Gap 10 (12-20); Blood Urea Nitrogen 18 mg/dL (9-16); Calcium 8.8 mg/dL (8.4-10.2); Carbon Dioxide 28 mmol/L (22-29); Chloride 106 mmol/L (96-108); Creatinine Clr Calc Pharmacy 55.3; Estimated Glomerular Filt Rate 58; Potassium 4.0 mmol/L (3.3-5.1); Sodium 140 mmol/L (135-145)
[2025-05-20] MEDS: oxyCODONE HCl Immed Release 5 MG TABLET PO ×2 (06:07→20:58)
[2025-05-20] MEDS: Levothyroxine Sodium 112 MCG, Levothyroxine Sodium 25 MCG 137 MCG PO (06:07)
--- NOTE | 2025-05-20 07:00 | CA_ITS ---
Transthoracic Echocardiogram Patient (Last, First, Middle): Alee Amato, Gender: F Date of : 1955 Age: 70 Procedure Date: 05/20/2025 Procedure Type: Transthoracic Echocardiogram Location: ER Height: 157.48 cm Weight: 80.74 kg BSA: 1.82 m2 Heart Rate: bpm BP: 119 / 59 mmHg Keg Filler: SB Referring MD: Alyson Simon PA-C Symptoms: CVA Study Quality: Adequate ECG Rhythm: Sinus Conclusions: - The left ventricular systolic function is low normal. The calculated ejection fraction is 54% by biplane method. - Evidence suggests grade III (severe) diastolic dysfunction. - No obvious valvular pathology seen on this study. Findings Left Ventricle Normal left ventricular cavity size. There is mildly increased left ventricular wall thickness. The left ventricular systolic function is low normal. The calculated ejection fraction is 54% by biplane method. There is no evidence of regional wall motion abnormalities. Evidence suggests grade III (severe) diastolic dysfunction. Right Ventricle Normal right ventricular cavity size. There is low normal right ventricular systolic function. Atria The left atrium is moderately dilated. The right atrium is normal in size. Aortic Valve There is a normal trileaflet aortic valve. There is no aortic valve stenosis. There is no aortic valve regurgitation. Mitral Valve There is mild mitral annular calcification. There is trace mitral valve regurgitation. There is no mitral valve stenosis. Pulmonic Valve There is trace pulmonic valve regurgitation. Tricuspid Valve There is mild tricuspid valve regurgitation. Mild pulmonary hypertension is present. Great Vessels The asc aorta is normal in size. Moderate plaque is seen in the sino tubular ridge. Venous The inferior vena cava is mildly dilated and collapses less than 50% with inspiration. Pericardium/Pleural There is no evidence of pericardial effusion. Prior Study Comparison Changes noted compared to prior study dated: 07/10/2024. LVEF slightly lower than prior. Recommendations, Care & Conclusions No obvious valvular pathology seen on this study. Measurements 2D Linear Measurements IVSd: 1.08 0.6-0.9/0.6-1.0 cm LVIDd: 5.27 3.9-5.3/4.2-5.9 cm LVIDd Index: 2.90 2.4-3.2/2.2-3.1 cm/m2 LVIDs: 3.26 2.0-3.6 cm LVPWd: 1.07 0.7-1.1 cm LA Diam: 4.50 2.7-3.8/3.0-4.0 cm LAIDs Index: 2.47 1.5-2.3 cm/m2 LV Mass: 272.64 67-162/88-224 g LV Mass Index: 149.80 43-95/49-115 g/m2 LVOT Diam: 2.00 3.0+(-)1.3 cm 2D Systolic Function EF 4C: 56.30 >55% EF 2C: 49.80 >55% EF BiP: 53.90 >55% Mitral Valve MV Pk E: 1.28 MV PK A: 0.24 MV Decel Time: 151.00 E/A: 5.40 E'Lateral: 5.35 E'Medial: 5.76 E/E' Med: 22.20 E/E' Lat: 23.90 PHT: 44.00 MVA PHT: 5.00 Decel [place]: 8.47 Aortic Valve AoV Pk Rafael: 1.16 AoV Pk Grad: 5.00 LVOT LVOT Pk Rafael: 0.77 LVOT Mn Rafael: 0.52 LVOT VTI: 0.19 LVOT Pk Grad: 2.00 LVOT Mn Grad: 1.00 LVOT Diam: 2.00 LVOT Area: 3.14 Diastolic Function MV Pk E: 1.28 MV Pk A: 0.24 E/A: 5.40 E'Medial: 5.76 E/E' Med: 22.20 E' Laterial: 5.35 E/E' Lat: 23.90 Right Ventricle TAPSE (mm): 17.50 TVS' Rafael: 7.78 Tricuspid Valve TR Pk Rafael: 2.52 TR Pk Grad: 25.00 RA Press: 15.00 RVSP: 40.00 Great Vessels Aorta Sinus of Valsalva: 3.30 2.0-3.5 cm Ao Asc: 3.10 2.1-3.4 cm Ao Arch: 2.70 Pulmonary Veins Pulm Vein S/D 0.40 Pulmonary Valve PV Pk Rafael: 0.81 Peak PV Grad: 3.00 Updated in Other Vendor System with Status of Final Aneudy Martinez MD electronically signed on 05/20/2025 12:03:24 PM with status of Final
[2025-05-20 07:07] LABS: Glucose, Whole Blood 105 mg/dL (60-115)
[2025-05-20 08:04] LABS: Glucose, Whole Blood 110 mg/dL (60-115)
[2025-05-20] MEDS: Aspirin Enteric Coated 81 MG TABLET.DR PO (08:18)
--- NOTE | 2025-05-20 09:48 | PM.NEUROCN ---
History of Present Illness Data of Consult Service Date: 05/20/25 Primary Care Provider: Jo Montiel MD HPI Reason for consult: Acute onset of blurred vision This is a 70-year-old female with a h/o AFib on Eliquis (noncompliant: Has not been taking it recently), insulin-dependent diabetes with diabetic retinopathy, cardiomyopathy, hypothyroid, chronic anemia, and hypertension, who presented to the ED due to blurry vision, headache and dizziness starting today. The blurry vision is in both eyes, pain behind the right eye. She also reported elevated blood sugars. She denies any numbness weakness or gait instabilities. Has a history of cataract surgery and her program schedule clerk was contacted by the ED provider who suggested the patient is noncompliant with diabetic retinopathy care. She denies any shortness of breath, chest pain, nausea, vomiting or urinary symptoms including frequency, urgency or dysuria. MRI shows a small acute infarct in the right occipital lobe and the right medial temporal lobe. There is also chronic extensive white matter micro vascular disease PMFSH Past Medical History Medical History Class 1 obesity Atrial fibrillation Hypothyroidism Asthma Pericardial effusion Pneumonitis Pleural effusion Hypoglycemia unawareness associated with type 2 diabetes mellitus Post-surgical hypothyroidism intermediate (current) use of insulin Postsurgical hypothyroidism Thyroid cancer Dyslipidemia Essential hypertension Hyperparathyroidism Vitamin D deficiency Obesity (BMI 30-39.9) Diabetes type 2, uncontrolled Family History Family History Father No problems noted. Mother Arthritis Surgical History Surgical History Hx of colonoscopy Hx of total thyroidectomy Hx of hysterectomy Social History Social History Household Members: Family and Children Household Members Other:: 2 Housing: Apartment Do you presently have visiting nurse or other home services: Yes ([facility]) Alcohol intake: never Patient Tobacco Use Status: Never used Tobacco e-Cigarette/Vaping Use: Never Used Second Hand Smoke Exposure: No service: No Current occupational status: disabled Cognitive needs: No Hearing needs: No Vision needs: No Meds Allergies Allergy/AdvReac Type Severity Reaction Status Date / Time empagliflozin (From Allergy Intermediate ITCHY/RASH Verified 05/19/25 13:53 JARDIANCE) dulaglutide (From [facility]) AdvReac Intermediate Abdominal Verified 05/19/25 13:53 Pain JARDIANCE Allergy Intermediate pruritus Uncoded 05/19/25 13:53 Active Medications: Current Medications Acetaminophen (Acetaminophen 325 Mg Tablet) 975 mg PO Q6H PRN PRN Reason: Pain, Mild 1-3,fever,headache Last Admin: 05/20/25 06:07 Dose: 975 mg Albuterol Sulfate (Albuterol Sulfate 90 Mcg 8 Gm Inhaler) 2 puff INHALE Q6H PRN PRN Reason: shortness of breath or wheezing Aspirin (Aspirin Enteric Coated 81 Mg Tablet.Dr) 81 mg PO DAILY [facility] Last Admin: 05/20/25 08:18 Dose: 81 mg Atorvastatin Calcium (Atorvastatin Calcium 80 Mg Tablet) 80 mg PO DAILY [facility] Last Admin: 05/20/25 08:18 Dose: 80 mg Calcium Carbonate (Calcium Carbonate 750 Mg Tab.Chew) 750 mg PO Q4H PRN PRN Reason: Heartburn Dextrose (Dextrose 50 % 25 Gm/50 Ml Syringe) 25 gm IVPUSH Q15M PRN; Protocol PRN Reason: per Hypoglycemia Standing Ord. Glucose (Glucose Gel 15 Gm Gel..Gram.) 15 gm PO Q15M PRN; Protocol PRN Reason: per Hypoglycemia Standing Ord. Insulin Human Lispro (Insulin Lispro 100 Unit/Ml 3 Ml Vial) 0 unit SUBCUT QIDACHS [facility]; Protocol Last Admin: 05/20/25 07:05 Dose: Not Given Levothyroxine Sodium 112 mcg/ (Levothyroxine Sodium 25 mcg) 137 mcg PO DAILY@0600 [facility] Last Admin: 05/20/25 06:07 Dose: 137 mcg Magnesium Hydroxide (Milk Of Magnesia 30 Ml Oral.Susp) 30 ml PO DAILY PRN PRN Reason: Constipation Melatonin (Melatonin 3 Mg Tablet) 6 mg PO BEDTIME PRN PRN Reason: Insomnia Ondansetron HCl (Ondansetron Hcl 4 Mg/2 Ml Vial) 4 mg IVPUSH Q8H PRN PRN Reason: Nausea and Vomiting Oxycodone HCl (Oxycodone Hcl Immed Release 5 Mg Tablet) 5 mg PO Q6H PRN PRN Reason: Pain, Severe (Pain Scale 7-10) Last Admin: 05/20/25 06:07 Dose: 5 mg Sodium Chloride (0.9 % Sodium Chloride Flush 3 Ml Syringe) 3 ml IVFLUSH QSHIFT [facility] Last Admin: 05/20/25 07:36 Dose: Not Given Tramadol HCl (Tramadol Hcl 50 Mg Tablet) 50 mg PO Q6H PRN PRN Reason: Pain, Moderate(Pain Scale 4-6) Vitamin D (Cholecalciferol (Vitamin D3) 25 Mcg Tablet) 50 mcg PO DAILY [facility] Last Admin: 05/20/25 08:17 Dose: 50 mcg Home Medications ?Medication ?Instructions ?Recorded ?Confirmed ?Last Taken ?Type apixaban 5 mg tablet (Eliquis) 5 mg PO BID 10/01/24 05/19/25 09/30/24 History insulin degludec 100 unit/mL (3 12 unit subcut DAILY 03/31/25 05/19/25 Unknown History mL) subcutaneous pen (Tresiba FlexTouch U-100 insulin) insulin lispro 100 unit/mL 0 sliding scale dose subcut TID 03/31/25 05/19/25 Unknown History subcutaneous pen (Humalog KwikPen (U-100) Insulin) lisinopril 10 mg tablet 5 mg PO DAILY 05/19/25 05/19/25 Unknown History diltiazem HCl 120 mg 120 mg PO DAILY 05/20/25 05/20/25 Unknown History capsule,extended release 24 hr metoprolol succinate 50 mg 50 mg PO DAILY 05/20/25 05/20/25 Unknown History tablet,extended release 24 hr Physical Exam Vital Signs: Vital Signs: Last Vital Signs Temp 97.7 F 05/20/25 07:10 Pulse 56 05/20/25 07:10 Resp 14 05/20/25 07:10 BP 107/52 L 05/20/25 07:10 Pulse Ox 98 05/20/25 07:10 O2 Del Method Room Air 05/20/25 07:10 BMI result Body Mass Index 32.7 Neuro: Other: She is alert and oriented with normal cognitive functions. Speech and language functions are normal. Muscle tone and strength are normal in all 4 extremities deep tendon reflexes are hypoactive plantar responses are flexor. Results Labs 05/20/25 04:24 05/20/25 04:24 Labs: Short CBC 05/19/25 05/20/25 Range/Units 15:08 04:24 WBC 7.8 8.0 (4.8-10.8) X10*3/uL Hgb 10.5 L 9.5 L (12.0-16.0) g/dl Hct 35.4 L 32.0 L (37.0-47.0) % Plt Count 371 347 (160-400) X10*3/uL BMP 05/19/25 05/20/25 15:08 04:24 Sodium 139 140 Potassium 4.8 D 4.0 Chloride 105 106 Carbon Dioxide 24 28 BUN 17 H 18 H Creatinine 0.92 0.96 Calcium 9.3 D 8.8 Liver Function 05/19/25 Range/Units 15:08 Total Bilirubin 0.5 (0.0-1.0) mg/dL AST 27 (5-31) U/L ALT 8 (0-31) U/L Alkaline Phosphatase 95 (39-117) U/L Albumin 4.1 (3.5-5.0) g/dL Assessment and Plan (1) Acute CVA (cerebrovascular accident): Status: Acute She has a small right occipital and right medial temporal infarct in the posterior cerebral artery distribution probably embolic related to her atrial fibrillation. She has been noncompliant with her Eliquis. Eye recommendations: Restart Eliquis 5 mg b.i.d.. CTA of the head and neck. I have reassured the patient that her visual symptoms should improve over the next few weeks Procedures Date of Service Date of Service: 05/20/25
--- OUTSIDE RECORDS SUMMARY | 2025-05-20 11:32 | XMS_ITS | Encounter Summary ---
Author Organization [employer] Address [address] [place] [address] 7 [place] [address] Care Team Providers Care Cathead Worker Name Role Phone Unavailable Primary Care Provider Unavailabl e Reason for Visit * Reason Comments Med Refill Encounter Details Date Type Department Care Team ([facility] st Contact Info) Description 07/29/2024 Refill [facility] CHC MED & PEDS [address] [place] [address] Ganesh Alvarado MD [address] [place] [address] Social History Tobacco Use Types Packs/Day Years [...]
--- OUTSIDE RECORDS SUMMARY | 2025-05-20 11:33 | XMS_ITS | Encounter Summary ---
Author Organization [employer] Address [address] [place] [address] 7 [place] [address] Care Team Providers Care Manager Performance Improvement Name Role Phone Unavailable Primary Care Provider Unavailabl e Reason for Visit * Reason Comments Med Refill Encounter Details Date Type Department Care Team ([facility] st Contact Info) Description 04/10/2024 Refill [facility] CHC MED & PEDS [address] [place] [address] Ganesh Alvarado MD [address] [place] [address] Social History Tobacco Use Types Packs/Day Years [...]
--- OUTSIDE RECORDS SUMMARY | 2025-05-20 11:33 | XMS_ITS | Encounter Summary ---
Author Organization [employer] Address [address] [place] [address] 7 [place] [address] Care Team Providers Care Supervisor Central Supply Name Role Phone Unavailable Primary Care Provider Unavailabl e Reason for Visit * Reason Comments Med Refill Encounter Details Date Type Department Care Team ([facility] st Contact Info) Description 04/09/2024 Refill [facility] CHC MED & PEDS [address] [place] [address] Ganesh Alvarado MD [address] [place] [address] Social History Tobacco Use Types Packs/Day Years [...]
--- OUTSIDE RECORDS SUMMARY | 2025-05-20 11:33 | XMS_ITS | Encounter Summary ---
Author Organization [employer] Address [address] [place] [address] 7 [place] [address] Care Team Providers Care Office Machine Repair Shop Supervisor Name Role Phone Unavailable Primary Care Provider Unavailabl e Reason for Visit * Reason Comments Med Refill Encounter Details Date Type Department Care Team ([facility] st Contact Info) Description 01/17/2024 Refill [facility] CHC MED & PEDS [address] [place] [address] Ganesh Alvarado MD [address] [place] [address] Social History Tobacco Use Types Packs/Day Years [...]
--- OUTSIDE RECORDS SUMMARY | 2025-05-20 11:33 | XMS_ITS | Encounter Summary ---
Author Organization [employer] Address [address] [place] [address] 7 [place] [address] Care Team Providers Care Chenille Machine Operator Name Role Phone Unavailable Primary Care Provider Unavailabl e Reason for Visit * Reason Comments Med Refill Encounter Details Date Type Department Care Team ([facility] st Contact Info) Description 06/04/2024 Refill [facility] CHC MED & PEDS [address] [place] [address] Ganesh Alvarado MD [address] [place] [address] Social History Tobacco Use Types Packs/Day Years [...]
--- OUTSIDE RECORDS SUMMARY | 2025-05-20 11:33 | XMS_ITS | Encounter Summary ---
Author Organization [employer] Address [address] [place] [address] 7 [place] [address] Care Team Providers Care Forest Technology Professor Name Role Phone Unavailable Primary Care Provider Unavailabl e Reason for Visit * Reason Comments Med Refill Encounter Details Date Type Department Care Team ([facility] st Contact Info) Description 07/01/2024 Refill [facility] CHC MED & PEDS [address] [place] [address] Ganesh Alvarado MD [address] [place] [address] Social History Tobacco Use Types Packs/Day Years [...]
--- OUTSIDE RECORDS SUMMARY | 2025-05-20 11:33 | XMS_ITS | Clinical Summary ---
Author Organization [employer] Address [address] [place] [address] [address]t [place] [address] Care Team Providers Care Terra Cotta Mold Maker Name Role Phone Unavailable Primary Care [...] Tobacco Screening 1969 Hepatitis C Screening 1975 RSV Patients and Patients Aged 60 years or older (1 - Risk 50-74 years 1-dose series) 2007 Zoster Vaccines (1 of 2) 2007 Pneumococcal Vaccine: 50+ Years (2 of 2 - PCV) 05/25/2011 05/25/2010 DTaP/Tdap/Td Vaccines (2 - Td or Tdap) [...] 239 mg/dL HDL Cholesterol 41 mg/dL [facility] Comment: Desirable HDL: greater than 40 mg/dL Note: This HDL assay may give artificially low results in patients with liver disease. LDL Cholesterol Calculated 127 mg/dl [facility] Comment: Desirable LDL: less than [...] >60 [facility] Comment: NOTE: For -Russian individuals, multiply the result by 1.210. Chronic Kidney Disease: Estimated GFR < 60 mL/min/1.73m2 Severe Kidney Disease: Estimated GFR < 15 mL/min/1.73m2 Glucose Fasting 110(H) 60 - 99 mg/dL [facility] Comment: A fasting glucose from [...] ORDERABLE LABS Final Result Performing Organization Address City/State/[facility] Co de Phone Number [facility] [address] [place] [address] * Mammography Report 1 (05/04/2020 9:06 AM [...] Recently Relevant to Health Maintenance Insurance [place] [address] [place] [id number]
--- OUTSIDE RECORDS SUMMARY | 2025-05-20 11:33 | XMS_ITS | Encounter Summary ---
Author Organization [employer] Address [address] [place] [address] 7 [place] [address] Care Team Providers Care Electric Meter Technician Name Role Phone Unavailable Primary Care Provider Unavailabl e Reason for Visit * Reason Comments Med Refill Encounter Details Date Type Department Care Team ([facility] st Contact Info) Description 05/06/2024 Refill [facility] CHC MED & PEDS [address] [place] [address] Ganesh Alvarado MD [address] [place] [address] Social History Tobacco Use Types Packs/Day Years [...]
--- OUTSIDE RECORDS SUMMARY | 2025-05-20 11:33 | XMS_ITS | Encounter Summary ---
Author Organization [employer] Address [address] [place] [address] 7 [place] [address] Care Team Providers Care Geodetic Computator Name Role Phone Unavailable Primary Care Provider Unavailabl e Reason for Visit * Reason Comments Med Refill Encounter Details Date Type Department Care Team ([facility] st Contact Info) Description 10/08/2024 Refill [facility] CHC MED & PEDS [address] [place] [address] Ganesh Alvarado MD [address] [place] [address] Social History Tobacco Use Types Packs/Day Years [...]
--- OUTSIDE RECORDS SUMMARY | 2025-05-20 11:33 | XMS_ITS | Encounter Summary ---
Author Organization [employer] Address [address] [place] [address] 7 [place] [address] Care Team Providers Care Contract Accountant Name Role Phone Unavailable Primary Care Provider Unavailabl e Reason for Visit * Reason Comments Med Refill Encounter Details Date Type Department Care Team ([facility] st Contact Info) Description 11/26/2024 Refill [facility] CHC MED & PEDS [address] [place] [address] Ganesh Alvarado MD [address] [place] [address] Social History Tobacco Use Types Packs/Day Years [...]
--- OUTSIDE RECORDS SUMMARY | 2025-05-20 11:34 | XMS_ITS | Encounter Summary ---
Author Organization [employer] Address [address] [place] [address] 7 [place] [address] Care Team Providers Care Rope Cutter Name Role Phone Unavailable Primary Care Provider Unavailabl e Reason for Visit * Reason Comments Med Refill Encounter Details Date Type Department Care Team ([facility] st Contact Info) Description 11/06/2023 Refill [facility] CHC MED & PEDS [address] [place] [address] Ganesh Alvarado MD [address] [place] [address] Social History Tobacco Use Types Packs/Day Years [...]
--- OUTSIDE RECORDS SUMMARY | 2025-05-20 11:34 | XMS_ITS | Encounter Summary ---
Author Organization [employer] Address [address] [place] [address] 7 [place] [address] Care Team Providers Care Diesel Powerplant Supervisor Name Role Phone Unavailable Primary Care Provider Unavailabl e Reason for Visit * Reason Comments Med Refill Encounter Details Date Type Department Care Team ([facility] st Contact Info) Description 11/02/2023 Refill [facility] CHC MED & PEDS [address] [place] [address] Ganesh Alvarado MD [address] [place] [address] Social History Tobacco Use Types Packs/Day Years [...]
--- OUTSIDE RECORDS SUMMARY | 2025-05-20 11:35 | XMS_ITS | Encounter Summary ---
Author Organization [email or web address] Address [address] [place] [address] 7 [place] [address] Care Team Providers Care Hemming And Tacking Machine Operator Name Role Phone Unavailable Primary Care Provider Unavailabl e Reason for Visit * Reason Comments Med Refill Encounter Details Date Type Department Care Team ([facility] st Contact Info) Description 08/26/2024 Refill [facility] CHC MED & PEDS [address] [place] [address] Ganesh Alvarado MD [address] [place] [address] Social History Tobacco Use Types Packs/Day Years [...]
--- OUTSIDE RECORDS SUMMARY | 2025-05-20 11:35 | XMS_ITS | Encounter Summary ---
Author Organization [employer] Address [address] [place] [address] 7 [place] [address] Care Team Providers Care Medical Oncologist Name Role Phone Unavailable Primary Care Provider Unavailabl e Reason for Visit * Reason Comments Med Refill Encounter Details Date Type Department Care Team ([facility] st Contact Info) Description 10/18/[address] [facility] MEDICINE [address] [place] [address] Ganesh Alvarado MD [address] [place] [address] Social History Tobacco Use Types Packs/Day Years [...]
--- OUTSIDE RECORDS SUMMARY | 2025-05-20 11:36 | XMS_ITS | Encounter Summary ---
Author Organization [employer] [facility] Address [address] [place] [address] 7 [place] [address] Care Team Providers Care Gas Manager Name Role Phone Ganesh Alvarado MD Primary Care Provider [phone] Reason for Visit * Reason Comments Med Refill Encounter Details Date Type Department Care Team (Late st Contact Info) Description 08/06/2023 Refill [facility] MEDICINE [address] [place] [address] Ganesh Alvarado MD [address] [place], [place] [phone] Social History Tobacco Use Types Packs/Day Years [...] on filedocumented in this encounter Care Teams Gas Manager Relationship Specialty Start Date End Date Ganesh Alvarado MD [address] [place] [address] PCP - General Internal Medicine 12/21/17 09/05/23 documented as of this encounter
--- OUTSIDE RECORDS SUMMARY | 2025-05-20 11:36 | XMS_ITS | Encounter Summary ---
Author Organization [employer] Address [address] [place] [address] 7 [place] [address] Care Team Providers Care Welt Drawer Name Role Phone Ganesh Alvarado MD Primary Care Provider [phone] Reason for Visit * Reason Comments Med Refill Encounter Details Date Type Department Care Team ([facility] st Contact Info) Description 06/08/2023 Refill [facility] CHC MED & PEDS [address] [place] [address] Ganesh Alvarado MD [address] [place] [address] Social History Tobacco Use Types Packs/Day Years [...] on filedocumented in this encounter Care Teams Welt Drawer Relationship Specialty Start Date End Date Ganesh Alvarado MD [address] [place] [address] PCP - General Internal Medicine 12/21/17 09/05/23 documented as of this encounter
--- OUTSIDE RECORDS SUMMARY | 2025-05-20 11:36 | XMS_ITS | Data Portability ---
Author Organization [employer] [facility] Address [address] [place] [phone] Care Team Providers Care Tapeman Name Role Phone HIM CCA OTHER Assessment [...] ICD10 Code Diagnosis IMO Codes Diagnosis Note [id number] Tal Landa MD [address] [phone] 10/30/2024 12:31:59 10/30/2024 18:20:48 Health Concerns Section Related Observation LastModified by Organization [employer]eta[employer] LastModified Time None Recorded Concern Status LastModified by Organization Details LastModified Time None Recorded Advance Directives Directive None Recorded Payers Insurance Date Sequence Insurance Name Policy Number Policy Green Covered Member ID Green Member ID Guarantor Name 10/30/2024 1 [facility] - DOS ON OR AFTER 2022 - DUAL ELIGIBLE - SENIOR LIVING OPTIONS AND ONE CARE (MEDICARE REPLACEMENT/ADV ANTAGE - HMO) Alee Amato [id number] Alee Amato Notes Date Note Type Note [...] .................. .................. .................. .................. .................. .................. ............... [employer]ilingual [employer] Teacher Note From Azam Granados: No answer on phone or door .................. .................. .................. .................. .................. .................. .................. ............... Disposition: Unfulfilled Tal Landa MD [address] [facility],[address], [place], [address], DA - LAI MARTIN 10/30/2024 18:20:46 OBGyn Episode No OBEpisode recorded.
--- OUTSIDE RECORDS SUMMARY | 2025-05-20 11:36 | XMS_ITS | Encounter Summary ---
Author Organization [employer] Address [address] [place] [address] 7 [place] [address] Care Team Providers Care Towel Weaver Name Role Phone Ganesh Alvarado MD Primary Care Provider [phone] Encounter Details Date Type Department Care Team ([facility] st Contact Info) Description 11/24/2022 Abstract [facility] [address] [place] [address] Ganesh Alvarado MD [address] [place] [address] Social History Tobacco Use Types Packs/Day Years [...] on filedocumented in this encounter Care Teams Towel Weaver Relationship Specialty Start Date End Date Ganesh Alvarado MD [address] [place] [address] PCP - General Internal Medicine 12/21/17 09/05/23 documented as of this encounter
--- NOTE | 2025-05-20 12:27 | MHC.CM.PN ---
IMM GIVEN 05/20. THIS CM MET WITH PATIENT WITH THE ASSISTANCE OF A DIABETES CLINICAL MANAGER. PATIENT STATES SHE LIVES WITH HER DAUGHTER AND SON-IN-LAW. 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 DME: [facility]. EDUCATION PROVIDED ON HCP, PATIENT DECLINES TO COMPLETE ONE AT THIS TIME. DP: RETURN HOME/RESUME PREVIOUS SERVICES, PATIENTS SON WILL TRANSPORT HER HOME AT DISCHARGE. PCP: DR. MONSERRAT NAGY
[2025-05-20 12:58] LABS: Glucose, Whole Blood 124 mg/dL (60-115)
--- NOTE | 2025-05-20 13:28 | P.PNIM_ITS ---
Subjective Subjective Date of Service: 05/20/25 Interval History: Patient seen examined at bedside this recently admitted for CVA TTE being done today. Patient this time states that she continues to have blurry vision, denies any other complaints at this time. Review of Systems Review of Systems: Yes all other systems are reviewed and are negative Physical Exam 2 Exam: Exam: General: AxOx3, No acute distress Head: AT/NC ENT: Moist mucous membranes Neck: supple CVS; RRR, S1 S2 normal Lungs: Clear bilateral breath sounds, no wheezes or crackles Abd: Soft non tender, non distended Ext: No edema and no calf tenderness MSK: moving all 4 limbs Skin: No cyanosis or edema Psych: Cooperative with exam Neurology: Decreased vision Vital Signs: Vital Signs: Last Vital Signs Temp 97.7 F 05/20/25 07:10 Pulse 55 05/20/25 12:41 Resp 14 05/20/25 07:10 BP 107/52 L 05/20/25 07:10 Pulse Ox 98 05/20/25 12:41 O2 Del Method Room Air 05/20/25 07:10 BMI result Body Mass Index 33.6 Objective Data Active Medications Acetaminophen (Acetaminophen 325 Mg Tablet) 975 mg PO Q6H PRN PRN Reason: Pain, Mild 1-3,fever,headache Last Admin: 05/20/25 06:07 Dose: 975 mg Documented By: ALICJA Albuterol Sulfate (Albuterol Sulfate 90 Mcg 8 Gm Inhaler) 2 puff INHALE Q6H PRN PRN Reason: shortness of breath or wheezing Apixaban (Apixaban 5 Mg Tablet) 5 mg PO BID [facility] Last Admin: 05/20/25 12:14 Dose: 5 mg Documented By: IVANIA Aspirin (Aspirin Enteric Coated 81 Mg Tablet.) 81 mg PO DAILY [facility] Last Admin: 05/20/25 08:18 Dose: 81 mg Documented By: IVANIA Atorvastatin Calcium (Atorvastatin Calcium 80 Mg Tablet) 80 mg PO DAILY [facility] Last Admin: 05/20/25 08:18 Dose: 80 mg Documented By: IVANIA Calcium Carbonate (Calcium Carbonate 750 Mg Tab.Chew) 750 mg PO Q4H PRN PRN Reason: Heartburn Dextrose (Dextrose 50 % 25 Gm/50 Ml Syringe) 25 gm IVPUSH Q15M PRN; Protocol PRN Reason: per Hypoglycemia Standing Ord. Diltiazem HCl (Diltiazem Hcl Cd 120 Mg Cap.Er.Deg) 120 mg PO DAILY [facility]; Protocol Glucose (Glucose Gel 15 Gm Gel..Gram.) 15 gm PO Q15M PRN; Protocol PRN Reason: per Hypoglycemia Standing Ord. Insulin Human Lispro (Insulin Lispro 100 Unit/Ml 3 Ml Vial) 0 unit SUBCUT QIDACHS [facility]; Protocol Last Admin: 05/20/25 12:18 Dose: Not Given Documented By: IVANIA Non-Admin Reason: No Insulin Coverage Levothyroxine Sodium 112 mcg/ (Levothyroxine Sodium 25 mcg) 137 mcg PO DAILY@0600 [facility] Last Admin: 05/20/25 06:07 Dose: 137 mcg Documented By: ALICJA Magnesium Hydroxide (Milk Of Magnesia 30 Ml Oral.Susp) 30 ml PO DAILY PRN PRN Reason: Constipation Melatonin (Melatonin 3 Mg Tablet) 6 mg PO BEDTIME PRN PRN Reason: Insomnia Ondansetron HCl (Ondansetron Hcl 4 Mg/2 Ml Vial) 4 mg IVPUSH Q8H PRN PRN Reason: Nausea and Vomiting Oxycodone HCl (Oxycodone Hcl Immed Release 5 Mg Tablet) 5 mg PO Q6H PRN PRN Reason: Pain, Severe (Pain Scale 7-10) Last Admin: 05/20/25 06:07 Dose: 5 mg Documented By: ALICJA Sodium Chloride (0.9 % Sodium Chloride Flush 3 Ml Syringe) 3 ml IVFLUSH QSHIFT [facility] Last Admin: 05/20/25 07:36 Dose: Not Given Documented By: ELVER Non-Admin Reason: See Note Tramadol HCl (Tramadol Hcl 50 Mg Tablet) 50 mg PO Q6H PRN PRN Reason: Pain, Moderate(Pain Scale 4-6) Vitamin D (Cholecalciferol (Vitamin D3) 25 Mcg Tablet) 50 mcg PO DAILY [facility] Last Admin: 05/20/25 08:17 Dose: 50 mcg Documented By: IVANIA Labs 05/20/25 04:24 05/20/25 04:24 Labs: Laboratory Results - last 24 hr 05/19/25 05/19/25 05/19/25 13:55 15:08 21:12 MCV 62.2 L MCH 18.5 L MCHC 29.7 L RDW 17.2 H Plt Count 371 MPV Not Reportable Immature Gran % (Auto) 0.4 Neut % (Auto) 56.8 Lymph % (Auto) 35.2 [place] % (Auto) 6.3 Eos % (Auto) 0.3 Baso % (Auto) 1.0 Lymph # (Auto) 2.7 [place] # (Auto) 0.5 Eos # (Auto) 0.0 Baso # (Auto) 0.1 Abs Immat Gran (auto) 0.03 Absolute Neuts (auto) 4.4 Absolute Nucleated RBC 0.000 Nucleated RBC % (auto) 0.0 Smear Tech's Comments VERIFIED PT 13.8 H INR 1.1 Anion Gap 15 Estim Creat Clear Calc 57.7 Estimated GFR > 60 POC Glucose 250 H 163 H Random Glucose 239 H Calcium 9.3 D Magnesium 1.7 Total Bilirubin 0.5 AST 27 ALT 8 Alkaline Phosphatase 95 Troponin I High Sens 6.0 Total Protein 7.5 Albumin 4.1 Triglycerides 114 Cholesterol 189 LDL Cholesterol, Calc 132 H HDL Cholesterol 35 L Influenza Type A (PCR) NEGATIVE Influenza Type B (PCR) NEGATIVE RSV RNA Qual (PCR) NEGATIVE SARS-CoV-2 RNA (RT-PCR) NEGATIVE 05/20/25 05/20/25 05/20/25 04:24 07:03 08:01 MCV 62.6 L MCH 18.6 L MCHC 29.7 L RDW 16.8 H Plt Count 347 MPV 11.2 Immature Gran % (Auto) Neut % (Auto) Lymph % (Auto) [place] % (Auto) Eos % (Auto) Baso % (Auto) Lymph # (Auto) [place] # (Auto) Eos # (Auto) Baso # (Auto) Abs Immat Gran (auto) Absolute Neuts (auto) Absolute Nucleated RBC 0.000 Nucleated RBC % (auto) 0.0 Smear Tech's Comments PT INR Anion Gap 10 L Estim Creat Clear Calc 55.3 Estimated GFR 58 POC Glucose 105 110 Random Glucose 75 Calcium 8.8 Magnesium Total Bilirubin AST ALT Alkaline Phosphatase Troponin I High Sens Total Protein Albumin Triglycerides Cholesterol LDL Cholesterol, Calc HDL Cholesterol Influenza Type A (PCR) Influenza Type B (PCR) RSV RNA Qual (PCR) SARS-CoV-2 RNA (RT-PCR) 05/20/25 12:54 MCV MCH MCHC RDW Plt Count MPV Immature Gran % (Auto) Neut % (Auto) Lymph % (Auto) [place] % (Auto) Eos % (Auto) Baso % (Auto) Lymph # (Auto) [place] # (Auto) Eos # (Auto) Baso # (Auto) Abs Immat Gran (auto) Absolute Neuts (auto) Absolute Nucleated RBC Nucleated RBC % (auto) Smear Tech's Comments PT INR Anion Gap Estim Creat Clear Calc Estimated GFR POC Glucose 124 H Random Glucose Calcium Magnesium Total Bilirubin AST ALT Alkaline Phosphatase Troponin I High Sens Total Protein Albumin Triglycerides Cholesterol LDL Cholesterol, Calc HDL Cholesterol Influenza Type A (PCR) Influenza Type B (PCR) RSV RNA Qual (PCR) SARS-CoV-2 RNA (RT-PCR) Assessment and Plan (1) Acute CVA (cerebrovascular accident): Status: Acute (2) Atrial fibrillation with RVR: Status: Acute (3) Diabetes type 2, uncontrolled: Status: Acute Plan 70-year-old female with a past medical history significant for AFib on Eliquis (noncompliant), insulin-dependent diabetes with diabetic retinopathy, cardiomyopathy, hypothyroid, chronic anemia and hypertension, who presented to the ED due to blurry vision headache and dizziness. found to have CVA of R occipital area acute CVA, R occipital infarct on MRI - echo with bubble study - continue tele - ASA 81mg - PT/OT - per neuro recs, will restart Eliquis paroxysmal a fib - Eliquis restarted - continue rate control IDDM - diabetic diet - SSI - will adjust medications accordingly hypothyroid, chronic - continue levothyroxine chronic anemia, at baseline - monitor CBC HTN - BP soft, allow permissive HTN at this time, treat if SBP >200 - continue to hold lisinopril Class 1 obesity - BMI 32.7 - weight loss encouraged DNR/DNI, discussed with the patient and family member bedside VTE prophylaxis: Pneumoboots and Eliquis Total time managing care of this patient today: 35 minutes. Quality Stroke Does the patient have a stroke diagnosis?: Yes Reason for No Anti-thrombotic by Day Two: Contraindicated VTE Prior VTE?: No VTE Risk Level:: Medical - moderate - high VTE Device Contraindication: N/A - Device Ordered VTE Drug Contraindication: Treatment Not Indicated
[2025-05-20 17:26] LABS: Glucose, Whole Blood 105 mg/dL (60-115)
[2025-05-20 20:15] LABS: Glucose, Whole Blood 111 mg/dL (60-115)
--- NOTE | 2025-05-20 20:17 | PC.NURSE ---
ambulated steadily to bathroom 1 assist walker
[2025-05-21] VITALS (9 sets, daily range): BP systolic 106–133; BP diastolic 56–81; PULSE 58–131; RESP 16–20; TEMP 36.4–36.9; O2SAT 96–98
--- NOTE | 2025-05-21 | ECG_ITS ---
Test Reason : a fib Blood Pressure : */* mmHG Vent. Rate : 128 BPM Atrial Rate : * BPM P-R Int : * ms QRS Dur : 132 ms QT Int : 374 ms P-R-T Axes : * -76 -27 degrees QTcB Int : 546 ms Atrial flutter with rapid ventricular response Left axis deviation Right bundle branch block Abnormal ECG When compared with ECG of 19-May-2025 14:17, Rhythm change Vent. rate has increased by 77 bpm Referred By: Eugene Quick Electronically Signed By: DEMETRIS MIX
[2025-05-21] MEDS: Levothyroxine Sodium 112 MCG, Levothyroxine Sodium 25 MCG 137 MCG PO (06:35)
[2025-05-21 07:15] LABS: Glucose, Whole Blood 91 mg/dL (60-115)
[2025-05-21] MEDS: Aspirin Enteric Coated 81 MG TABLET.DR PO (09:32)
[2025-05-21] MEDS: 0.9 % Sodium Chloride Flush 3 ML SYRINGE IVFLUSH ×3 (09:32→22:04)
[2025-05-21] MEDS: dilTIAZem HCL CD 120 MG CAP.ER.DEG PO (09:34)
[2025-05-21 09:35] LABS: Anion Gap 12 (12-20); Blood Urea Nitrogen 14 mg/dL (9-16); Calcium 8.9 mg/dL (8.4-10.2); Carbon Dioxide 29 mmol/L (22-29); Chloride 103 mmol/L (96-108); Creatinine Clr Calc Pharmacy 58.1; Estimated Glomerular Filt Rate > 60; Potassium 4.8 mmol/L (3.3-5.1); Sodium 139 mmol/L (135-145)
[2025-05-21 11:18] LABS: Glucose, Whole Blood 115 mg/dL (60-115)
--- NOTE | 2025-05-21 12:33 | P.PNIM_ITS ---
Subjective Subjective Date of Service: 05/21/25 Interval History: Patient seen and examined at bedside this morning, recently had MRI that showed CVA. Patient during the day developed a flutter. Review of Systems Review of Systems: Yes all other systems are reviewed and are negative Physical Exam 2 Exam: Exam: General: AxOx3, No acute distress Head: AT/NC ENT: Moist mucous membranes Neck: supple CVS; RRR, S1 S2 normal Lungs: Clear bilateral breath sounds, no wheezes or crackles Abd: Soft non tender, non distended Ext: No edema and no calf tenderness MSK: moving all 4 limbs Skin: No cyanosis or edema Psych: Cooperative with exam Neurology: no focal deficit Vital Signs: Vital Signs: Last Vital Signs Temp 98.4 F 05/21/25 11:13 Pulse 59 05/21/25 11:13 Resp 18 05/21/25 11:13 BP 106/76 05/21/25 11:13 Pulse Ox 97 05/21/25 11:13 O2 Del Method Room Air 05/21/25 11:13 BMI result Body Mass Index 33.6 Objective Data Active Medications Acetaminophen (Acetaminophen 325 Mg Tablet) 975 mg PO Q6H PRN PRN Reason: Pain, Mild 1-3,fever,headache Last Admin: 05/20/25 06:07 Dose: 975 mg Documented By: ALICJA Albuterol Sulfate (Albuterol Sulfate 90 Mcg 8 Gm Inhaler) 2 puff INHALE Q6H PRN PRN Reason: shortness of breath or wheezing Apixaban (Apixaban 5 Mg Tablet) 5 mg PO BID [facility] Last Admin: 05/21/25 09:32 Dose: 5 mg Documented By: MARLENI Aspirin (Aspirin Enteric Coated 81 Mg Tablet.) 81 mg PO DAILY [facility] Last Admin: 05/21/25 09:32 Dose: 81 mg Documented By: MARLENI Atorvastatin Calcium (Atorvastatin Calcium 80 Mg Tablet) 80 mg PO DAILY [facility] Last Admin: 05/21/25 09:32 Dose: 80 mg Documented By: MARLENI Calcium Carbonate (Calcium Carbonate 750 Mg Tab.Chew) 750 mg PO Q4H PRN PRN Reason: Heartburn Dextrose (Dextrose 50 % 25 Gm/50 Ml Syringe) 25 gm IVPUSH Q15M PRN; Protocol PRN Reason: per Hypoglycemia Standing Ord. Diltiazem HCl (Diltiazem Hcl Cd 120 Mg Cap.Er.Deg) 120 mg PO DAILY [facility]; Protocol Last Admin: 05/21/25 09:34 Dose: 120 mg Documented By: MARLENI Glucose (Glucose Gel 15 Gm Gel..Gram.) 15 gm PO Q15M PRN; Protocol PRN Reason: per Hypoglycemia Standing Ord. Insulin Human Lispro (Insulin Lispro 100 Unit/Ml 3 Ml Vial) 0 unit SUBCUT QIDACHS [facility]; Protocol Last Admin: 05/21/25 11:27 Dose: Not Given Documented By: MARLENI Non-Admin Reason: No Insulin Coverage Levothyroxine Sodium 112 mcg/ (Levothyroxine Sodium 25 mcg) 137 mcg PO DAILY@0600 [facility] Last Admin: 05/21/25 06:35 Dose: 137 mcg Documented By: GILBERTO Magnesium Hydroxide (Milk Of Magnesia 30 Ml Oral.Susp) 30 ml PO DAILY PRN PRN Reason: Constipation Melatonin (Melatonin 3 Mg Tablet) 6 mg PO BEDTIME PRN PRN Reason: Insomnia Metoprolol Succinate (Metoprolol Succinate Er 50 Mg Tab.Er.24h) 50 mg PO DAILY [facility]; Protocol Ondansetron HCl (Ondansetron Hcl 4 Mg/2 Ml Vial) 4 mg IVPUSH Q8H PRN PRN Reason: Nausea and Vomiting Oxycodone HCl (Oxycodone Hcl Immed Release 5 Mg Tablet) 5 mg PO Q6H PRN PRN Reason: Pain, Severe (Pain Scale 7-10) Last Admin: 05/20/25 20:58 Dose: 5 mg Documented By: GILBERTO Sodium Chloride (0.9 % Sodium Chloride Flush 3 Ml Syringe) [address] [facility] Last Admin: 05/21/25 09:32 Dose: 3 ml Documented By: MARLENI Tramadol HCl (Tramadol Hcl 50 Mg Tablet) 50 mg PO Q6H PRN PRN Reason: Pain, Moderate(Pain Scale 4-6) Last Admin: 05/20/25 22:09 Dose: 50 mg Documented By: GILBERTO Vitamin D (Cholecalciferol (Vitamin D3) 25 Mcg Tablet) 50 mcg PO DAILY [facility] Last Admin: 05/21/25 09:31 Dose: 50 mcg Documented By: MARLENI Labs 05/20/25 04:24 05/21/25 08:46 Labs: Laboratory Results - last 24 hr 05/20/25 05/20/25 05/20/25 12:54 17:21 20:04 Hold Purple Top Anion Gap Estim Creat Clear Calc Estimated GFR POC Glucose 124 H 105 111 Random Glucose Calcium 05/21/25 05/21/25 05/21/25 07:12 08:46 11:14 Hold Purple Top SEE NOTE Anion Gap 12 Estim Creat Clear Calc 58.1 Estimated GFR > 60 POC Glucose 91 115 Random Glucose 179 H Calcium 8.9 Assessment and Plan (1) Acute CVA (cerebrovascular accident): Status: Acute (2) Atrial fibrillation with RVR: Status: Acute (3) Diabetes mellitus, with long-term current use of insulin: Status: Acute Plan 70-year-old female with a past medical history significant for AFib on Eliquis (noncompliant), insulin-dependent diabetes with diabetic retinopathy, cardiomyopathy, hypothyroid, chronic anemia and hypertension, who presented to the ED due to blurry vision headache and dizziness. found to have CVA of R occipital area acute CVA, R occipital infarct on MRI - echo with bubble study pending - continue tele, EKG requested -CTA head and neck ordered per neuro recs - ASA 81mg - PT/OT - per neuro recs, continue Eliquis paroxysmal a fib - continue Eliquis, metoprolol restarted - continue rate control IDDM - diabetic diet - SSI - will adjust medications accordingly hypothyroid, chronic - continue levothyroxine chronic anemia, at baseline - monitor CBC HTN - BP soft, allow permissive HTN at this time, treat if SBP >200 - continue to hold lisinopril Class 1 obesity - BMI 32.7 - weight loss encouraged DNR/DNI, discussed with the patient and family member bedside VTE prophylaxis: Pneumoboots and Eliquis Total time managing care of this patient today: 55 minutes. Quality Stroke Does the patient have a stroke diagnosis?: Yes Reason for No Anti-thrombotic by Day Two: Contraindicated VTE Prior VTE?: No VTE Risk Level:: Medical - moderate - high VTE Device Contraindication: N/A - Device Ordered VTE Drug Contraindication: Treatment Not Indicated
[2025-05-21] MEDS: Metoprolol Succinate ER 50 MG TAB.ER.24H PO (12:45)
[2025-05-21] MEDS: iohexoL 350 MG/ML 100 ML INFUS..BTL 70 ML IV (16:26)
[2025-05-21 16:40] LABS: Glucose, Whole Blood 137 mg/dL (60-115)
--- NOTE | 2025-05-21 16:46 | MHC.STROKE ---
1545 Met with patient to discuss stroke education. Pt awake, alert and oriented x 4. [place] speaking. It Infrastructure Project Manager utilized. Stroke education reviewed. Pamphlet provided and discussed. all questions answered. Pt's medical hx reviewed including medications, social hx, diet and excercise.
--- NOTE | 2025-05-21 18:12 | PM.EVENT ---
Event Note Date of Service: 05/21/25 Event Note: Patient had CTA head and neck done which showed subacute right occipital lobe infarct, possibly increasing in size when compared to MRI from 2 days ago, with no hemodynamically significant stenosis. Spoke with Neurology, suggested on continuing current treatment, and obtaining CT scan tomorrow. Time Spent With Patient Time: Total time managing care of this patient today ____ minutes.
[2025-05-21 20:38] LABS: Glucose, Whole Blood 219 mg/dL (60-115)
--- NOTE | 2025-05-21 22:09 | PC.NURSE ---
endorses FINNEY 5/10. declines analgesia. appears calm, no pain behaviors or signs of distress. ambulated standby assist to bathroom. advanced registered nurse utilized. states needs are met at this time, call amado in reach, fall prx in place
[2025-05-22] VITALS (15 sets, daily range): BP systolic 91–130; BP diastolic 50–88; PULSE 108–150; RESP 16–20; TEMP 36.1–36.9; O2SAT 95–98
--- NOTE | 2025-05-22 05:40 | PC.NURSE ---
afib. HR started to sustain more in 140s. MD contacted. metoprolol IV ordered and given. f/u BPs charted. HR appears to be more labile now dipping briefly into 90s-110s and then elevating into 130s-140s where it will sustain for about 5-10 seconds before dropping down into 110s-120 range. pattern repeats. patient denies new symptoms including CP and SOB. neuro assessment unchanged, stable. MD aware. patient states she is comfortable, call amado in reach, fall prx in place. MD contacted, message was read, no further orders
[2025-05-22] MEDS: Levothyroxine Sodium 112 MCG, Levothyroxine Sodium 25 MCG 137 MCG PO (06:57)
[2025-05-22 07:34] LABS: Glucose, Whole Blood 104 mg/dL (60-115)
[2025-05-22] MEDS: Aspirin Enteric Coated 81 MG TABLET.DR PO (08:14)
[2025-05-22] MEDS: 0.9 % Sodium Chloride Flush 3 ML SYRINGE IVFLUSH ×3 (08:17→22:02)
[2025-05-22] MEDS: Amiodarone/Dextrose 150 MG/100 ML PLAST..BAG 600 MG IV (08:46)
[2025-05-22 09:34] LABS: Hematocrit 39.7 % (37.0-47.0); Hemoglobin 11.6 g/dl (12.0-16.0); Mean Corpuscular HGB Conc 29.2 g/dl (31.0-35.0); Mean Corpuscular Hemoglobin 18.1 pg (27.0-33.0); Mean Corpuscular Volume 61.9 fL (80.0-98.0); NRBC Abs Auto 0.000 X10*3/uL (0.0-0.012); NRBC Pct Auto 0.0 /100WBC (0.0-0.2); PLT CLUMP 1; Red Blood Count 6.41 X10*6/uL (4.20-5.50)
[2025-05-22 09:36] LABS: White Blood Count 7.8 X10*3/uL (4.8-10.8)
[2025-05-22 09:40] LABS: Alanine Aminotransferase < 6 U/L (0-31); Albumin Level 3.7 g/dL (3.5-5.0); Alkaline Phosphatase 84 U/L (39-117); Anion Gap 11 (12-20); Aspartate Amino Transferase 20 U/L (5-31); Blood Urea Nitrogen 16 mg/dL (9-16); Calcium 9.3 mg/dL (8.4-10.2); Carbon Dioxide 27 mmol/L (22-29); Chloride 104 mmol/L (96-108); Creatinine Clr Calc Pharmacy 52.3; Estimated Glomerular Filt Rate 56; Magnesium 1.8 mg/dL (1.6-2.6); Potassium 4.8 mmol/L (3.3-5.1); Sodium 137 mmol/L (135-145); Total Protein 6.7 g/dL (6.5-8.0)
--- NOTE | 2025-05-22 09:41 | P.CONCA_ITS ---
History of Present Illness History of Present Illness Date of Service: 05/22/25 Chief complaint: CVA Narrative: This is a cardiology consultation regarding atrial fibrillation. I have previously seen her in September of this year. At that time, if she mainly had GI issues like nausea, vomiting, diarrhea and abdominal pain. In that setting, she had atrial flutter with rapid ventricular response. She was given metoprolol and diltiazem and she had converted back to sinus rhythm. History of ablation for atrial fibrillation/flutter in 2020. Briefly on amiodarone at that time and then stopped. For anticoagulation, she was on Eliquis. Her usual cardiology follow up is at [facility] but not clear how much compliant she is. Current admission is because of blurry vision, headache and dizziness. In this context, she has been diagnosed with a stroke. EKG had shown atrial flutter with rapid rate. She is denying any symptoms like chest pain or palpitations. Home meds listed as diltiazem CD 120 mg daily and metoprolol ER 50 mg daily with Eliquis but patient states that she does not take Eliquis regularly. Review of Systems 2 Review of Systems: Yes all other systems are reviewed and are negative Constitutional: Constitutional: Reports as per HPI and Reports no additional constitutional complaints Eyes: Eyes: Reports as per HPI and Denies no additional eye complaints ENT: Denies system reviewed and no additional complaints, except as documented and Reports as per HPI Cardiovascular: Cardiovascular: Reports as per HPI, Reports no additional cardiovascular complaints, Denies acrocyanosis, Denies cool extremities, Denies chest pain, Denies leg edema, Denies lightheadedness, Denies palpitations and Denies dyspnea Respiratory: Respiratory: Reports as per HPI, Denies no additional respiratory complaints and Denies dyspnea Gastrointestinal: Gastrointestinal: Reports as per HPI and Denies no additional gastrointestinal complaints Genitourinary: Genitourinary: Reports as per HPI Musculoskeletal: Musculoskeletal: Reports no additional musculoskeletal complaints and Reports as per HPI Integumentary/Breasts: Skin/Breast: Reports system reviewed and no additional complaints, except as docu Neurologic: Reports system reviewed and no additional complaints, except as documented and Reports as per HPI Psychiatric: Psychiatric: Reports no additional psychiatric complaints and Reports as per HPI Endocrine: Endocrine: Reports no additional endocrine complaints, Reports as per HPI and Denies palpitations Hematologic/Lymphatic: Hematologic/Lymphatic: Reports no additional hematologic/lymphatic complaints and Reports as per HPI Allergic/Immunologic: Allergic/Immunologic: Reports no additional allergic/immunologic complaints and Reports as per HPI [facility] Past Medical History Medical History Class 1 obesity Atrial fibrillation Hypothyroidism Asthma Pericardial effusion Pneumonitis Pleural effusion Hypoglycemia unawareness associated with type 2 diabetes mellitus 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 Mother Arthritis Surgical History Surgical History Hx of colonoscopy Hx of total thyroidectomy Hx of hysterectomy Social History Social History Household Members: Family and Children Household Members Other:: 2 Housing: Apartment Do you presently have visiting nurse or other home services: Yes ([facility]) Alcohol intake: never Patient Tobacco Use Status: Never used Tobacco e-Cigarette/Vaping Use: Never Used Second Hand Smoke Exposure: No service: No Current occupational status: disabled Cognitive needs: No Hearing needs: No Vision needs: No Meds Allergies Allergy/AdvReac Type Severity Reaction Status Date / Time empagliflozin (From Allergy Intermediate ITCHY/RASH Verified 05/19/25 13:53 JARDIANCE) dulaglutide (From Trulicity) AdvReac Intermediate Abdominal Verified 05/19/25 13:53 Pain JARDIANCE Allergy Intermediate pruritus Uncoded 05/19/25 13:53 Active Medications: Current Medications Acetaminophen (Acetaminophen 325 Mg Tablet) 975 mg PO Q6H PRN PRN Reason: Pain, Mild 1-3,fever,headache Last Admin: 05/20/25 06:07 Dose: 975 mg Albuterol Sulfate (Albuterol Sulfate 90 Mcg 8 Gm Inhaler) 2 puff INHALE Q6H PRN PRN Reason: shortness of breath or wheezing Apixaban (Apixaban 5 Mg Tablet) 5 mg PO BID [facility] Last Admin: 05/22/25 08:14 Dose: 5 mg Aspirin (Aspirin Enteric Coated 81 Mg Tablet.) 81 mg PO DAILY [facility] Last Admin: 05/22/25 08:14 Dose: 81 mg Atorvastatin Calcium (Atorvastatin Calcium 80 Mg Tablet) 80 mg PO DAILY [facility] Last Admin: 05/22/25 08:14 Dose: 80 mg Calcium Carbonate (Calcium Carbonate 750 Mg Tab.Chew) 750 mg PO Q4H PRN PRN Reason: Heartburn Dextrose (Dextrose 50 % 25 Gm/50 Ml Syringe) 25 gm IVPUSH Q15M PRN; Protocol PRN Reason: per Hypoglycemia Standing Ord. Diltiazem HCl (Diltiazem Hcl Cd 120 Mg Cap.Er.Deg) 120 mg PO DAILY [facility]; Protocol On Hold: 05/22/25 08:19 Resume: 05/25/25 09:00 Last Admin: 05/21/25 09:34 Dose: 120 mg Glucose (Glucose Gel 15 Gm Gel..Gram.) 15 gm PO Q15M PRN; Protocol PRN Reason: per Hypoglycemia Standing Ord. Amiodarone HCl 900 mg/ Sodium (Chloride) 518 mls @ 0 mls/hr IVCONT .Q0M [facility]; Protocol Insulin Human Lispro (Insulin Lispro 100 Unit/Ml 3 Ml Vial) 0 unit SUBCUT QIDACHS [facility]; Protocol Last Admin: 05/22/25 07:37 Dose: Not Given Levothyroxine Sodium 112 mcg/ (Levothyroxine Sodium 25 mcg) 137 mcg PO DAILY@0600 [facility] Last Admin: 05/22/25 06:57 Dose: 137 mcg Magnesium Hydroxide (Milk Of Magnesia 30 Ml Oral.Susp) 30 ml PO DAILY PRN PRN Reason: Constipation Melatonin (Melatonin 3 Mg Tablet) 6 mg PO BEDTIME PRN PRN Reason: Insomnia Metoprolol Succinate (Metoprolol Succinate Er 100 Mg Tab.Er.24h) 100 mg PO DAILY [facility]; Protocol On Hold: 05/22/25 09:00 Resume: 05/25/25 09:00 Ondansetron HCl (Ondansetron Hcl 4 Mg/2 Ml Vial) 4 mg IVPUSH Q8H PRN PRN Reason: Nausea and Vomiting Oxycodone HCl (Oxycodone Hcl Immed Release 5 Mg Tablet) 5 mg PO Q6H PRN PRN Reason: Pain, Severe (Pain Scale 7-10) Last Admin: 05/20/25 20:58 Dose: 5 mg Sodium Chloride (0.9 % Sodium Chloride Flush 3 Ml Syringe) 3 ml IVFLUSH QSHIFT [facility] Last Admin: 05/22/25 08:17 Dose: 3 ml Tramadol HCl (Tramadol Hcl 50 Mg Tablet) 50 mg PO Q6H PRN PRN Reason: Pain, Moderate(Pain Scale 4-6) Last Admin: 05/21/25 12:45 Dose: 50 mg Vitamin D (Cholecalciferol (Vitamin D3) 25 Mcg Tablet) 50 mcg PO DAILY [facility] Last Admin: 05/22/25 08:14 Dose: 50 mcg Home Medications ?Medication ?Instructions ?Recorded ?Confirmed ?Last Taken ?Type apixaban 5 mg tablet (Eliquis) 5 mg PO BID 10/01/2409/30/24 History insulin degludec 100 unit/mL (3 12 unit subcut DAILY 0 03/31/25 05/19/25 Unknown History mL) subcutaneous pen (Tresiba FlexTouch U-100 insulin) insulin lispro 100 unit/mL 0 sliding scale dose subcut TID 03/31/25 05/19/25 Unknown History subcutaneous pen (Humalog KwikPen (U-100) Insulin) lisinopril 10 mg tablet 5 mg PO DAILY 05/19/2505/19 Unknown History diltiazem HCl 120 mg 120 mg PO DAILY 05/20/25 Unknown History capsule,extended release 24 hr metoprolol succinate 50 mg 50 mg PO DAILY 05/20/25 Unknown History tablet,extended release 24 hr Physical Exam 2 Vital Signs: Vital Signs: Last Vital Signs Temp 97.4 F 05/22/25 07:31 Pulse 112 H 05/22/25 09:12 Resp 20 05/22/25 07:31 BP 94/68 05/22/25 09:12 Pulse Ox 95 05/22/25 03:43 O2 Del Method Room Air 05/22/25 03:43 BMI result Body Mass Index 33.6 Const: General: comfortable and no acute distress O rientation/consciousness: patient oriented x3 HEENT: Other: Unremarkable Head: Yes normal to inspection Neck: Neck: Yes normal visual inspection Chest: Chest palpation & inspection: normal inspection of the chest Resp: Auscultation: clear to auscultation bilaterally Cardio: Palpation: normal PMI Heart sounds: S1 normal heart sound present, S2 normal heart sound present, no gallops, no murmurs and no rubs GI: Palpation (GI): Soft to palpation Back/Spine/Pelvis: Other: unremarkable Skin: General skin exam: no rashes or lesions noted Neuro: General: patient oriented x3 Extrem: General: Yes normal to inspection Psych: Mental Status: mental status grossly normal Objective Labs and Meds 05/22/25 08:52 05/22/25 08:52 Lab results: Laboratory Results - last 24 hr 05/21/25 05/21/25 05/21/25 11:14 16:35 20:28 RBC Hgb Hct MCV MCH MCHC RDW MPV Sodium Potassium Chloride Carbon Dioxide Anion Gap BUN Creatinine Estim Creat Clear Calc Estimated GFR POC Glucose 115 137 H 219 H Random Glucose Calcium Magnesium Total Bilirubin AST ALT Alkaline Phosphatase Total Protein Albumin 05/22/25 05/22/25 07:28 08:52 RBC 6.41 H D Hgb 11.6 L D Hct 39.7 D MCV 61.9 L MCH 18.1 L MCHC 29.2 L RDW 17.8 H MPV Not Reportable Sodium 137 Potassium 4.8 Chloride 104 Carbon Dioxide 27 Anion Gap 11 L BUN 16 Creatinine 0.99 Estim Creat Clear Calc 52.3 Estimated GFR 56 POC Glucose 104 Random Glucose 258 H Calcium 9.3 Magnesium 1.8 Total Bilirubin 0.4 AST 20 ALT < 6 Alkaline Phosphatase 84 Total Protein 6.7 Albumin 3.7 Imaging Radiologist's impression: Impressions Head/Neck CTA 05/21/25 16:19 IMPRESSION: NONCONTRAST HEAD CT: Subacute right occipital lobe infarct is possibly increasing in size when compared with MRI from 2 days ago. CTA NECK: There is abrupt cut off of the left vertebral artery at the level of C7 and vessel is again identified at approximately C5-6. It is uncertain if the cut off is due to occlusion or if it is related to beam hardening artifact secondary to refluxed contracts into an adjacent vein. Otherwise, no hemodynamically significant stenosis. CTA HEAD: No cut off or visualized hemodynamically significant stenosis. Result Read by Dr. Eugene Quick at 5:16 EST via [employer] Electronically signed by: Walt Guy MD 05/21/2025 05:[address] 05/22/25 08:37 IMPRESSION: Right occipital and left parietal infarcts. No acute intracranial abnormality. Electronically signed by: Kofi Ohara MD 05/22/2025 09:07 AM [facility] [place] Assessment and Plan (1) Atrial flutter with rapid ventricular response: Status: Acute Plan EKG on the 19 of May showed sinus bradycardia at 51/Min with bifascicular block pattern. In the repeat EKG from yesterday, atrial flutter with rapid rate at 128/Min. In the head CT scan, subacute right occipital lobe infarct. In the echocardiogram, LVEF is 54%. Severe diastolic dysfunction. Overall, paroxysmal atrial flutter/fibrillation and currently in atrial flutter with rapid rate; acute stroke; noncompliance with anticoagulation. Current meds listed include diltiazem CD/metoprolol. May add rather digoxin for rate control. Continue anticoagulation. Due to noncompliance with anticoagulation, not a good rhythm control candidate. Procedures Date of Service Date of Service: 05/22/25
[2025-05-22 10:13] LABS: Platelet Count 389 X10*3/uL (160-400)
--- NOTE | 2025-05-22 10:54 | MHC.CM.PN ---
PER MD ROUNDS, PT IS NOT MEDICALLY CLEARED, NEURO CONSULT PENDING. DCP: HOME WITH RESUMPTION OF [employer] AND FAMILY SUPPORT. SON TO TRANSPORT
[2025-05-22 10:57] LABS: Glucose, Whole Blood 269 mg/dL (60-115)
--- NOTE | 2025-05-22 12:11 | P.CNNE_ITS ---
History of Present Illness Data of Consult Service Date: 05/22/25 Primary Care Provider: Jo Montiel MD HPI Reason for consult: Reconsult because of CTA findings 70 years old woman with atrial flutter recently had a right occipital infarct. As workup for stroke, she had CTA done that revealed right occipital infarct but radiologist said that it was probably increasing in size and this consultation was requested. Patient did not have any new symptom or complaint. 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 Mother Arthritis Surgical History Surgical History Hx of colonoscopy Hx of total thyroidectomy Hx of hysterectomy Social History Social History Household Members: Family and Children Household Members Other:: 2 Housing: Apartment Do you presently have visiting nurse or other home services: Yes ([facility]) Alcohol intake: never Patient Tobacco Use Status: Never used Tobacco e-Cigarette/Vaping Use: Never Used Second Hand Smoke Exposure: No service: No Current occupational status: disabled Cognitive needs: No Hearing needs: No Vision needs: No Meds Allergies Allergy/AdvReac Type Severity Reaction Status Date / Time empagliflozin (From Allergy Intermediate ITCHY/RASH Verified 05/19/25 13:53 JARDIANCE) dulaglutide (From Trulicity) AdvReac Intermediate Abdominal Verified 05/19/25 13:53 Pain JARDIANCE Allergy Intermediate pruritus Uncoded 05/19/25 13:53 Active Medications: Current Medications Acetaminophen (Acetaminophen 325 Mg Tablet) 975 mg PO Q6H PRN PRN Reason: Pain, Mild 1-3,fever,headache Last Admin: 05/20/25 06:07 Dose: 975 mg Albuterol Sulfate (Albuterol Sulfate 90 Mcg 8 Gm Inhaler) 2 puff INHALE Q6H PRN PRN Reason: shortness of breath or wheezing Apixaban (Apixaban 5 Mg Tablet) 5 mg PO BID [facility] Last Admin: 05/22/25 08:14 Dose: 5 mg Aspirin (Aspirin Enteric Coated 81 Mg Tablet.Dr) 81 mg PO DAILY [facility] Last Admin: 05/22/25 08:14 Dose: 81 mg Atorvastatin Calcium (Atorvastatin Calcium 80 Mg Tablet) 80 mg PO DAILY [facility] Last Admin: 05/22/25 08:14 Dose: 80 mg Calcium Carbonate (Calcium Carbonate 750 Mg Tab.Chew) 750 mg PO Q4H PRN PRN Reason: Heartburn Dextrose (Dextrose 50 % 25 Gm/50 Ml Syringe) 25 gm IVPUSH Q15M PRN; Protocol PRN Reason: per Hypoglycemia Standing Ord. Digoxin (Digoxin 0.5 Mg/2 Ml Ampul) 0.25 mg IVPUSH Q6H [facility]; Protocol Stop: 05/22/25 16:46 Last Admin: 05/22/25 11:40 Dose: 0.25 mg Diltiazem HCl (Diltiazem Hcl Cd 120 Mg Cap.Er.Deg) 120 mg PO DAILY [facility]; Protocol On Hold: 05/22/25 08:19 Resume: 05/25/25 09:00 Last Admin: 05/21/25 09:34 Dose: 120 mg Glucose (Glucose Gel 15 Gm Gel..Gram.) 15 gm PO Q15M PRN; Protocol PRN Reason: per Hypoglycemia Standing Ord. Insulin Human Lispro (Insulin Lispro 100 Unit/Ml 3 Ml Vial) 0 unit SUBCUT QIDACHS [facility]; Protocol Last Admin: 05/22/25 11:47 Dose: 6 unit Levothyroxine Sodium 112 mcg/ (Levothyroxine Sodium 25 mcg) 137 mcg PO DAILY@0600 [facility] Last Admin: 05/22/25 06:57 Dose: 137 mcg Magnesium Hydroxide (Milk Of Magnesia 30 Ml Oral.Susp) 30 ml PO DAILY PRN PRN Reason: Constipation Melatonin (Melatonin 3 Mg Tablet) 6 mg PO BEDTIME PRN PRN Reason: Insomnia Metoprolol Succinate (Metoprolol Succinate Er 100 Mg Tab.Er.24h) 100 mg PO DAILY [facility]; Protocol On Hold: 05/22/25 09:00 Resume: 05/25/25 09:00 Ondansetron HCl (Ondansetron Hcl 4 Mg/2 Ml Vial) 4 mg IVPUSH Q8H PRN PRN Reason: Nausea and Vomiting Oxycodone HCl (Oxycodone Hcl Immed Release 5 Mg Tablet) 5 mg PO Q6H PRN PRN Reason: Pain, Severe (Pain Scale 7-10) Last Admin: 05/20/25 20:58 Dose: 5 mg Sodium Chloride (0.9 % Sodium Chloride Flush 3 Ml Syringe) 3 ml IVFLUSH QSHIFT [facility] Last Admin: 05/22/25 08:17 Dose: 3 ml Tramadol HCl (Tramadol Hcl 50 Mg Tablet) 50 mg PO Q6H PRN PRN Reason: Pain, Moderate(Pain Scale 4-6) Last Admin: 05/21/25 12:45 Dose: 50 mg Vitamin D (Cholecalciferol (Vitamin D3) 25 Mcg Tablet) 50 mcg PO DAILY [facility] Last Admin: 05/22/25 08:14 Dose: 50 mcg Home Medications ?Medication ?Instructions ?Recorded ?Confirmed ?Last Taken ?Type apixaban 5 mg tablet (Eliquis) 5 mg PO BID 10/01/2409/30/24 History insulin degludec 100 unit/mL (3 12 unit subcut DAILY 0 03/31/25 05/19/25 Unknown History mL) subcutaneous pen (Tresiba FlexTouch U-100 insulin) insulin lispro 100 unit/mL 0 sliding scale dose subcut TID 03/31/25 05/19/25 Unknown History subcutaneous pen (Humalog KwikPen (U-100) Insulin) lisinopril 10 mg tablet 5 mg PO DAILY 05/19/2505/19 Unknown History diltiazem HCl 120 mg 120 mg PO DAILY 05/20/25 Unknown History capsule,extended release 24 hr metoprolol succinate 50 mg 50 mg PO DAILY 05/20/25 Unknown History tablet,extended release 24 hr Physical Exam 2 Vital Signs: Vital Signs: Last Vital Signs Temp 97.0 F 05/22/25 11:34 Pulse 118 H 05/22/25 11:34 Resp 20 05/22/25 11:34 BP 98/68 05/22/25 11:16 Pulse Ox 98 05/22/25 11:34 O2 Del Method Room Air 05/22/25 11:34 BMI result Body Mass Index 33.6 Neuro: Other: Mental Status: Alert and oriented to person, place, and time. Normal attention. Normal spontaneous speech, fluency, and comprehension. Cranial Nerves: CN II: Visual robbins full to confrontation, visual acuity intact. CN III, IV, : Pupils equal, round, reactive to light and accommodation. Extraocular movements are normal. CN V: Facial sensation is normal. CN VII: Facial movements symmetrical. CN VIII: Hearing intact to bedside conversation is normal. CN IX, X: Palate elevates symmetrically. CN XI: Shoulder shrug and head turn symmetrical. CN XII: Tongue midline without atrophy or fasciculations. Extrapyramidal: Full facial expressions and blinking. No rigidity. Movements are appropriate with no tremor or abnormality. Speech: Normal; no dysarthria or tremor. Results Labs 05/22/25 08:52 05/22/25 08:52 Labs: Short CBC 05/22/25 Range/Units 08:52 WBC 7.8 (4.8-10.8) X10*3/uL Hgb 11.6 L D (12.0-16.0) g/dl Hct 39.7 D (37.0-47.0) % Plt Count 389 (160-400) X10*3/uL BMP 05/22/25 08:52 Sodium 137 Potassium 4.8 Chloride 104 Carbon Dioxide 27 BUN 16 Creatinine 0.99 Calcium 9.3 Liver Function 05/22/25 Range/Units 08:52 Total Bilirubin 0.4 (0.0-1.0) mg/dL AST 20 (5-31) U/L ALT < 6 (0-31) U/L Alkaline Phosphatase 84 (39-117) U/L Albumin 3.7 (3.5-5.0) g/dL EXAMINATION: CT ANGIOGRAM HEAD AND NECK CLINICAL INFORMATION: rule out stroke. Recent small focal right occipital lobe infarct. Dysarthria, blurred vision COMPARISON: CT and MRI brain May 19, 2025 TECHNIQUE: Noncontrast axial imaging of the head was performed. This was followed by test bolus sequences and head and neck intravenous bolus administration of 70mL of Omnipaque 350. Helical imaging was performed in the axial plane from the aortic arch to the skull vertex. The data was processed at the eeg technologist's workstation for generation of MIP sequences. Angled MIPs and volume rendered reformatted images were also generated at an offline 3D workstation. Stenoses are assessed in accordance with NASCET criteria unless otherwise indicated. This CT examination was performed using dose optimization techniques as appropriate, variously including the following: *Automated exposure control *Adjustment of mA and/or kV according to patient size (this includes techniques or standardized protocols for targeted exams where dose is matched to indication/reason for exam; i.e. extremities or head) *Use of iterative reconstruction technique FINDINGS: NONCONTRAST HEAD CT: There is no evidence of intracranial hemorrhage or extra-axial fluid collection. There is no mass effect, or edema. Hypodensity is present in the right occipital lobe, most pronounced medially, where there was abnormality on MRI. However, there may be new abnormality more lateral to the aforementioned MRI changes. There is chronic encephalomalacia in the posterior left frontal lobe, unchanged. Ventricles, sulci, and cisterns are normal in size and configuration for patient age. No hydrocephalus. No midline shift. Globes and orbital contents image normally. No extracranial soft tissue abnormalities. The paranasal sinuses, mastoid air cells, and tympanic cavities are normally aerated. There are no suspicious bony abnormalities. NECK CTA: -AORTIC ARCH: Normal in caliber. Mild atheromatous calcification. Three-vessel branching pattern. -GREAT VESSEL ORIGINS: Widely patent. No stenosis. -RIGHT COMMON CAROTID ARTERY: Normal in course and caliber to the level of the bifurcation. -CERVICAL RIGHT INTERNAL CAROTID ARTERY: Mild atherosclerotic calcifications are present in the carotid bulb extending into the ICA origin. There is no hemodynamically significant stenosis. -LEFT COMMON CAROTID ARTERY: Normal in course and caliber to the level of the bifurcation. -CERVICAL LEFT INTERNAL CAROTID ARTERY: Mild atherosclerotic calcifications are present in the carotid bulb extending into the ICA origin. There is no hemodynamically significant stenosis. -CERVICAL RIGHT VERTEBRAL ARTERY: Right dominant. Normal in course and caliber into the skull base. -CERVICAL LEFT VERTEBRAL ARTERY: Right dominant. There appears to be cut off of the left vertebral artery at the level of mid C7. The vessel is redemonstrated at approximately C5-6. It is uncertain if there is actual occlusion of the vessel where the vessel is obscured by beam hardening artifact related to contrast refluxing into an adjacent vein. OTHER, SOFT TISSUES: -No lymphadenopathy or mass. No abnormal fluid collection or soft tissue swelling. -Normal thyroid. -Imaged superior mediastinal structures normal. -Imaged lung apices clear. CTA OF THE BRAIN: -INTRACRANIAL INTERNAL CAROTID ARTERIES: No focal stenosis or occlusion. Atherosclerotic ossification is visible in the carotid siphon. -RIGHT ANTERIOR CEREBRAL ARTERY: Normal A1 segment.. Normal arborization of the distal segments. -LEFT ANTERIOR CEREBRAL ARTERY: Normal A1 segment.. Normal arborization of the distal segments. -ANTERIOR COMMUNICATING ARTERY: Intact. -RIGHT MIDDLE CEREBRAL ARTERY: Normal M1 segment of the MCA without focal stenosis or occlusion. Normal bifurcation. Normal arborization of the distal segments. -LEFT MIDDLE CEREBRAL ARTERY: Normal M1 segment of the MCA without focal stenosis or occlusion. Normal bifurcation. Normal arborization of the distal segments. -RIGHT VERTEBRAL ARTERY V4: Normal in course and caliber. Normal PICA branch. -LEFT VERTEBRAL ARTERY V4: Normal in course and caliber. Normal PICA branch. -BASILAR ARTERY: Normal without focal stenosis or occlusion. Normal appearance of the proximal superior cerebellar arteries. Normal basilar tip. -RIGHT POSTERIOR CEREBRAL ARTERY: Normal P1 segment. Normal opacification of the distal WOOL HANDLER segments. -LEFT POSTERIOR CEREBRAL ARTERY: Normal P1 segment. Normal opacification of the distal WOOL HANDLER segments. -POSTERIOR COMMUNICATING ARTERIES: Not well demonstrated. Normal opacification of the superior sagittal, straight, transverse, and sigmoid sinuses. No venous thrombosis. No space-occupying hemorrhage or definite evolving infarct. CT/CT angio head neck IMPRESSION: NONCONTRAST HEAD CT: Subacute right occipital lobe infarct is possibly increasing in size when compared with MRI from 2 days ago. CTA NECK: There is abrupt cut off of the left vertebral artery at the level of C7 and vessel is again identified at approximately C5-6. It is uncertain if the cut off is due to occlusion or if it is related to beam hardening artifact secondary to refluxed contracts into an adjacent vein. Otherwise, no hemodynamically significant stenosis. CTA HEAD: No cut off or visualized hemodynamically significant stenosis. Result Read by Dr. Eugene Quick at 5:16 EST via [place] Assessment and Plan (1) Embolic cerebral infarction: Qualifiers: Precerebral and cerebral artery: posterior cerebral artery Laterality of affected vessel: right Qualified Code(s): I63.431 - Cerebral infarction due to embolism of right posterior cerebral artery Status: Acute 70 years old woman with a small right in his smaller left posterior parietal cortical embolic subacute ischemic infarcts. The real finding on CTA was another smaller left parietal embolic infarct suggesting that the source was her heart. These findings do not have any impact on her management decision. Continue anticoagulation. No further imaging is needed. Procedures Date of Service Date of Service: 05/22/25
--- NOTE | 2025-05-22 14:21 | HO.PM.IMPN ---
Subjective Subjective Date of Service: 05/22/25 Interval History: Patient seen examined at bedside this morning, patient overnight presenting with elevated heart rate 130s, BP around 90/60. Patient at this time asymptomatic. Review of Systems Review of Systems: Yes all other systems are reviewed and are negative Physical Exam Exam: Exam: General: AxOx3, No acute distress Head: AT/NC ENT: Moist mucous membranes Neck: supple CVS; irregularly irregular, S1 S2 normal Lungs: Clear bilateral breath sounds, no wheezes or crackles Abd: Soft non tender, non distended Ext: No edema and no calf tenderness MSK: moving all 4 limbs Skin: No cyanosis or edema Psych: Cooperative with exam Neurology: no focal deficit Vital Signs: Vital Signs: Last Vital Signs Temp 97.0 F 05/22/25 11:34 Pulse 133 H 05/22/25 14:00 Resp 20 05/22/25 11:34 BP 96/64 05/22/25 14:00 Pulse Ox 98 05/22/25 11:34 O2 Del Method Room Air 05/22/25 11:34 BMI result Body Mass Index 33.6 Objective Data Active Medications Acetaminophen (Acetaminophen 325 Mg Tablet) 975 mg PO Q6H PRN PRN Reason: Pain, Mild 1-3,fever,headache Last Admin: 05/20/25 06:07 Dose: 975 mg Documented By: ALICJA Albuterol Sulfate (Albuterol Sulfate 90 Mcg 8 Gm Inhaler) 2 puff INHALE Q6H PRN PRN Reason: shortness of breath or wheezing Apixaban (Apixaban 5 Mg Tablet) 5 mg PO BID [facility] Last Admin: 05/22/25 08:14 Dose: 5 mg Documented By: MARLENI Aspirin (Aspirin Enteric Coated 81 Mg Tablet.) 81 mg PO DAILY [facility] Last Admin: 05/22/25 08:14 Dose: 81 mg Documented By: MARLENI Atorvastatin Calcium (Atorvastatin Calcium 80 Mg Tablet) 80 mg PO DAILY [facility] Last Admin: 05/22/25 08:14 Dose: 80 mg Documented By: MARLENI Calcium Carbonate (Calcium Carbonate 750 Mg Tab.Chew) 750 mg PO Q4H PRN PRN Reason: Heartburn Dextrose (Dextrose 50 % 25 Gm/50 Ml Syringe) 25 gm IVPUSH Q15M PRN; Protocol PRN Reason: per Hypoglycemia Standing Ord. Digoxin (Digoxin 0.5 Mg/2 Ml Ampul) 0.25 mg IVPUSH Q6H [facility]; Protocol Stop: 05/22/25 16:46 Last Admin: 05/22/25 11:40 Dose: 0.25 mg Documented By: MARLENI Diltiazem HCl (Diltiazem Hcl Cd 120 Mg Cap.Er.Deg) 120 mg PO DAILY [facility]; Protocol Last Admin: 05/21/25 09:34 Dose: 120 mg Documented By: MARLENI Glucose (Glucose Gel 15 Gm Gel..Gram.) 15 gm PO Q15M PRN; Protocol PRN Reason: per Hypoglycemia Standing Ord. Insulin Human Lispro (Insulin Lispro 100 Unit/Ml 3 Ml Vial) 0 unit SUBCUT QIDACHS [facility]; Protocol Last Admin: 05/22/25 11:47 Dose: 6 unit Documented By: MARLENI Levothyroxine Sodium 112 mcg/ (Levothyroxine Sodium 25 mcg) 137 mcg PO DAILY@0600 [facility] Last Admin: 05/22/25 06:57 Dose: 137 mcg Documented By: GILBERTO Magnesium Hydroxide (Milk Of Magnesia 30 Ml Oral.Susp) 30 ml PO DAILY PRN PRN Reason: Constipation Melatonin (Melatonin 3 Mg Tablet) 6 mg PO BEDTIME PRN PRN Reason: Insomnia Metoprolol Succinate (Metoprolol Succinate Er 100 Mg Tab.Er.24h) 100 mg PO DAILY [facility]; Protocol On Hold: 05/22/25 09:00 Resume: 05/25/25 09:00 Ondansetron HCl (Ondansetron Hcl 4 Mg/2 Ml Vial) 4 mg IVPUSH Q8H PRN PRN Reason: Nausea and Vomiting Oxycodone HCl (Oxycodone Hcl Immed Release 5 Mg Tablet) 5 mg PO Q6H PRN PRN Reason: Pain, Severe (Pain Scale 7-10) Last Admin: 05/20/25 20:58 Dose: 5 mg Documented By: GILBERTO Sodium Chloride (0.9 % Sodium Chloride Flush 3 Ml Syringe) [facility] Last Admin: 05/22/25 08:17 Dose: 3 ml Documented By: MARLENI Tramadol HCl (Tramadol Hcl 50 Mg Tablet) 50 mg PO Q6H PRN PRN Reason: Pain, Moderate(Pain Scale 4-6) Last Admin: 05/21/25 12:45 Dose: 50 mg Documented By: MARLENI Vitamin D (Cholecalciferol (Vitamin D3) 25 Mcg Tablet) 50 mcg PO DAILY [facility] Last Admin: 05/22/25 08:14 Dose: 50 mcg Documented By: MARLENI Labs 05/22/25 08:52 05/22/25 08:52 Labs: Laboratory Results - last 24 hr 05/21/25 05/21/25 05/22/25 16:35 20:28 07:28 MCV MCH MCHC RDW Plt Count MPV Absolute Nucleated RBC Nucleated RBC % (auto) Anion Gap Estim Creat Clear Calc Estimated GFR POC Glucose 137 H 219 H 104 Random Glucose Calcium Magnesium Total Bilirubin AST ALT Alkaline Phosphatase Total Protein Albumin 05/22/25 05/22/25 08:52 10:53 MCV 61.9 L MCH 18.1 L MCHC 29.2 L RDW 17.8 H Plt Count 389 MPV Not Reportable Absolute Nucleated RBC 0.000 Nucleated RBC % (auto) 0.0 Anion Gap 11 L Estim Creat Clear Calc 52.3 Estimated GFR 56 POC Glucose 269 H Random Glucose 258 H Calcium 9.3 Magnesium 1.8 Total Bilirubin 0.4 AST 20 ALT < 6 Alkaline Phosphatase 84 Total Protein 6.7 Albumin 3.7 Assessment and Plan (1) Atrial flutter with rapid ventricular response: Status: Acute (2) Diabetes mellitus, with long-term current use of insulin: Status: Acute (3) Embolic cerebral infarction: Status: Acute Plan 70-year-old female with a past medical history significant for AFib on Eliquis (noncompliant), insulin-dependent diabetes with diabetic retinopathy, cardiomyopathy, hypothyroid, chronic anemia and hypertension, who presented to the ED due to blurry vision headache and dizziness. found to have CVA of R occipital area acute CVA, R occipital infarct and left parietal CVA on MRI - TTE reviewed - CT scan reviewed with repeat on 05/22 showing right occipital and left parietal infarcts - continue tele - continue ASA 81mg and Eliquis 5mg BID - PT/OT atrial flutter - continue Eliquis, continue metoprolol and diltiazem. patient with a flutter, given digoxin loading dose, as well as amio bolus, with mild improvement, will continue to monitor, amio drip on hold as she may convert to SR and may lead to clot formation and may cause worsening/new CVAs -Cardiology consulted and following IDDM - diabetic diet - SSI - will adjust medications accordingly hypothyroid, chronic - continue levothyroxine chronic anemia, at baseline - monitor CBC HTN - BP soft, allow permissive HTN at this time, treat if SBP >200 - continue to hold lisinopril Class 1 obesity - BMI 32.7 - weight loss encouraged DNR/DNI, discussed with the patient and family member bedside VTE prophylaxis: Pneumoboots and Eliquis Total time managing care of this patient today: 55 minutes. Quality Stroke Does the patient have a stroke diagnosis?: Yes Reason for No Anti-thrombotic by Day Two: Contraindicated VTE Prior VTE?: No VTE Risk Level:: Medical - moderate - high VTE Device Contraindication: N/A - Device Ordered VTE Drug Contraindication: Treatment Not Indicated
[2025-05-22 16:14] LABS: Glucose, Whole Blood 213 mg/dL (60-115)
[2025-05-22 21:39] LABS: Glucose, Whole Blood 192 mg/dL (60-115)
[2025-05-23] VITALS (7 sets, daily range): BP systolic 118–130; BP diastolic 58–82; PULSE 72–100; RESP 16–19; TEMP 36.1–36.6; O2SAT 98
[2025-05-23] MEDS: Levothyroxine Sodium 112 MCG, Levothyroxine Sodium 25 MCG 137 MCG PO (05:34)
[2025-05-23 08:08] LABS: Glucose, Whole Blood 210 mg/dL (60-115)
[2025-05-23] MEDS: Aspirin Enteric Coated 81 MG TABLET.DR PO (08:57)
[2025-05-23] MEDS: dilTIAZem HCL CD 120 MG CAP.ER.DEG PO (08:58)
--- NOTE | 2025-05-23 09:48 | P.PNCA_ITS ---
Subjective Subjective Date of Service: 05/23/25 Interval history: She states she feels fine. She has got no cardiac complaints. Review of Systems Review of Systems Yes all other systems are reviewed and are negative Constitutional: Reports as per HPI and Reports no additional constitutional complaints Eyes: Reports as per HPI and Denies no additional eye complaints Denies system reviewed and no additional complaints, except as documented and Reports as per HPI Cardiovascular: Reports as per HPI, Reports no additional cardiovascular complaints, Denies acrocyanosis, Denies cool extremities, Denies chest pain, Denies leg edema, Denies lightheadedness, Denies palpitations and Denies dyspnea Respiratory: Reports as per HPI, Denies no additional respiratory complaints and Denies dyspnea Gastrointestinal: Reports as per HPI and Denies no additional gastrointestinal complaints Genitourinary: Reports as per HPI Musculoskeletal: Reports no additional musculoskeletal complaints and Reports as per HPI Skin/Breast: Reports system reviewed and no additional complaints, except as docu Reports system reviewed and no additional complaints, except as documented and Reports as per HPI Psychiatric: Reports no additional psychiatric complaints and Reports as per HPI Endocrine: Reports no additional endocrine complaints, Reports as per HPI and Denies palpitations Hematologic/Lymphatic: Reports no additional hematologic/lymphatic complaints and Reports as per HPI Allergic/Immunologic: Reports no additional allergic/immunologic complaints and Reports as per HPI Physical Exam Vital Signs: Last Vital Signs Temp 97.8 F 05/23/25 08:00 Pulse 100 05/23/25 08:59 Resp 19 05/23/25 08:00 BP 130/70 05/23/25 08:59 Pulse Ox 98 05/23/25 08:00 O2 Del Method Room Air 05/23/25 08:00 BMI result Body Mass Index 33.6 Const General: comfortable and no acute distress Orientation/consciousness: patient oriented x3 HEENT Other: Unremarkable Head: Yes normal to inspection Neck Neck: Yes normal visual inspection Chest Chest palpation & inspection: normal inspection of the chest Resp Auscultation: clear to auscultation bilaterally Cardio Palpation: normal PMI Heart sounds: S1 normal heart sound present, S2 normal heart sound present, no gallops, no murmurs and no rubs GI Palpation (GI): Soft to palpation Back/Spine/Pelvis Other: unremarkable Skin General skin exam: no rashes or lesions noted Neuro General: patient oriented x3 Extrem General: Yes normal to inspection Psych Mental Status: mental status grossly normal Objective Labs and Meds 05/22/25 08:52 05/22/25 08:52 Lab results: Laboratory Results - last 24 hr 05/22/25 05/22/25 05/22/25 08:52 10:53 16:04 WBC 7.8 Plt Count 389 Absolute Nucleated RBC 0.000 Nucleated RBC % (auto) 0.0 POC Glucose 269 H 213 H 05/22/25 05/23/25 21:36 08:05 WBC Plt Count Absolute Nucleated RBC Nucleated RBC % (auto) POC Glucose 192 H 210 H Progress Note: A&P Assessment and plan (1) Atrial flutter with rapid ventricular response: Status: Acute Plan EKG on the 19 of May showed sinus bradycardia at 51/Min with bifascicular block pattern. In the repeat EKG, atrial flutter with rapid rate at 128/Min. In the head CT scan, subacute right occipital lobe infarct. In the echocardiogram, LVEF is 54%. Severe diastolic dysfunction. Overall, paroxysmal atrial flutter/fibrillation; acute stroke; noncompliance with anticoagulation and probably other medications do. Current meds are diltiazem and metoprolol. She also got digoxin yesterday. Hopefully, will convert to sinus. Strongly advised her to be compliant with medications including anticoagulation especially because of the recent stroke. In the long run, she may need another ablation depending on compliance. Her usual associate director of biostatistics is from [facility], , and hopefully, she can keep her follow-up. Time Spent With Patient Time: Total time managing care of this patient today ____ minutes. Progress Note: Quality Stroke Does the patient have a stroke diagnosis?: Yes Reason for No Anti-thrombotic by Day Two: Contraindicated Procedures Date of Service Date of Service: 05/23/25
[2025-05-23 10:48] LABS: Glucose, Whole Blood 150 mg/dL (60-115)
--- NOTE | 2025-05-23 13:20 | PM.DS ---
DS: Providers Provider Date of Service: 05/23/25 Date of admission: 05/19/25 20:11 Date of discharge: 05/23/25 Primary care physician: Jo Montiel MD Consults: 05/19/25 20:58 Consult to Neurology Routine Consulting Provider: [facility] Reason for consultation: CVA 05/21/25 12:20 Consult to Cardiology Routine Consulting Provider: [facility] Reason for consultation: atrial fibrillation with new CVA Has provider been notified: No 05/22/25 07:28 Consult to Neurology Routine Consulting Provider: [facility] Reason for consultation: reconsult for CVA Has provider been notified: No Attending physician on discharge: Eugene Quick Discharging clinician: Eugene Quick DS: Diagnosis Discharge Diagnosis (1) Atrial flutter with rapid ventricular response: Status: Acute (2) Diabetes mellitus, with long-term current use of insulin: Status: Acute (3) Embolic cerebral infarction: Status: Acute DS: Summary Hospital Course Hospital Course: 70-year-old female with a past medical history significant for AFib on Eliquis (noncompliant), insulin-dependent diabetes with diabetic retinopathy, cardiomyopathy, hypothyroid, chronic anemia and hypertension, who presented to the ED due to blurry vision headache and dizziness. found to have CVA of R occipital area. Patient then had episodes of atrial flutter, given metoprolol, diltiazem, amiodarone and digoxin loading dose, with mild improvement, on day of discharge, patient's blood pressure within normal limits, rate and rhythm adequate, patient to be discharged on digoxin, patient advised to follow up with primary care provider, importance of taking Eliquis and atrial flutter medications. Patient designated understanding. Acute CVA, R occipital infarct and left parietal CVA on MRI - TTE reviewed - CT scan reviewed with repeat on 05/22 showing right occipital and left parietal infarcts - continue tele - continue ASA 81mg, Eliquis 5mg BID and rosuvastatin 40mg - follow up with neurology as outpatient -counselled that blurry vision will slowly improve with time, patient resonated understanding atrial flutter - continue Eliquis 5mg BID - continue metoprolol tartrate 50mg BID, diltiazem 120mg BID and digoxin 125mcg qd. -monitor for any chest pain, palpitations, worsening blurry vision. -Cardiology follow up as outpatient IDDM - diabetic diet - continue with home medications hypothyroid, chronic - continue levothyroxine chronic anemia, at baseline - monitor CBC HTN - continue with home medications Class 1 obesity - BMI 32.7 - weight loss encouraged Time Attestation Discharge Coordination Time (in mins): 35 minutes Quality: Safe Use of Opioids Does Pt have an Active Cancer Diagnosis on the Problem List?: No Quality: Stroke Does the patient have a stroke diagnosis?: Yes Reason for No Anti-thrombotic at DC: N/A - Med Ordered Reason for No Anticoagulant at DC: N/A - Med Ordered Reason Not Initiating IV-Tpa: Not indicated Reason for No Anti-thrombotic by Day Two: N/A - Med Ordered Reason for No Statin at DC: N/A - Med Ordered Physical Exam Exam: Exam: General: AxOx3, No acute distress Head: AT/NC ENT: Moist mucous membranes Neck: supple CVS; RRR, S1 S2 normal Lungs: Clear bilateral breath sounds, no wheezes or crackles Abd: Soft non tender, non distended Ext: No edema and no calf tenderness MSK: moving all 4 limbs Skin: No cyanosis or edema Psych: Cooperative with exam Neurology: blurry vision Vital Signs: Vital Signs: Last Vital Signs Temp 97.0 F 05/23/25 12:00 Pulse 80 05/23/25 12:00 Resp 19 05/23/25 12:00 BP 120/60 05/23/25 12:00 Pulse Ox 98 05/23/25 12:00 O2 Del Method Room Air 05/23/25 12:00 BMI result Body Mass Index 33.6 DS: Data Data Completed and Pending Completed studies during hospitalization [Text1]: Procedures Insertion of Infusion Device into Upper Vein, Percutaneous Approach (10/01/24) Labs on day of discharge: Laboratory Results - last 24 hr 05/22/25 05/22/25 05/23/25 16:04 21:36 08:05 POC Glucose 213 H 192 H 210 H 05/23/25 10:44 POC Glucose 150 H Discharge Plan Discharge Anticipated Discharge Date/Time: 05/23/25 15:10 Patient Disposition: Home, Self-Care Discharge Diagnosis: stroke atrial flutter Referrals: Donavan Allan MD [Physician, Neurology] - 2 Weeks Jo Luna MD [Primary Care Provider, Internal Medicine] - 1 Week Aneudy Martinez MD [Physician, Cardiology] - 2 Weeks Discharge Medications: New aspirin 81 mg Tablet,Delayed Release (Dr/Ec) 81 mg PO DAILY 30 Days Qty: 30 3RF metoprolol tartrate 50 mg Tablet 50 mg PO BID 30 Days Qty: 60 2RF Protocol: Hold for SBP/HR < HOLD for SBP < : 90 HOLD for HR < : 60 digoxin 125 mcg (0.125 mg) Tablet 0.125 mg PO DAILY 30 Days Qty: 30 2RF Protocol: Hold for HR <: HOLD for HR < : 60 Continued (DME) lancets [OneTouch Delica Plus Lancet] 33 gauge misc See Rx Instructions .ROUTE .COMPLEX Qty: 100 0RF Dose Instruction: USE TO TEST BLOOD SUGAR FOUR TIMES DAILY Rx Instructions: USE TO TEST BLOOD SUGAR FOUR TIMES DAILY (DME) blood pressure test kit-large Kit See Rx Instructions .Route Qty: 1 0RF Rx Instructions: As directed (DME) blood-glucose meter [OneTouch Ultra2 Meter] Misc See Rx Instructions .Route Qty: 1 0RF Rx Instructions: As directed test 4 times a day (DME) air conditioner See Rx Instructions .Route .MEDSUPPLY Qty: 1 0RF Rx Instructions: As directed (DME) incontinence pad, liner, disp Pad See Rx Instructions .Route Qty: 120 11RF Rx Instructions: Use 1 pad every 6 hours as needed (DME) lancets [FreeStyle Lancets] 28 gauge misc See Rx Instructions .Route Qty: 100 4RF Rx Instructions: As directed test 4X a day cholecalciferol (vitamin D3) [Vitamin D3] 50 mcg (2,000 unit) capsule 50 mcg PO DAILY Qty: 28 3RF (DME) nebulizers Misc See Rx Instructions .Route Qty: 1 0RF Rx Instructions: As directed (DME) Grab bar Misc See Rx Instructions .Route Qty: 1 0RF Rx Instructions: As directed (DME) Dexcom G7 Sensor Device See Rx Instructions .Route Qty: 3 11RF Rx Instructions: As directed change every 10 days (DME) wipes flushable See Rx Instructions .Route .MEDSUPPLY Qty: 240 11RF Rx Instructions: As directed (DME) underpads [Bed Underpads] Pad See Rx Instructions .Route Qty: 300 11RF Rx Instructions: As directed (DME) latex gloves [Latex Gloves, Large] Misc See Rx Instructions .Route Qty: 240 11RF Rx Instructions: As directed (DME) incontinence pad, liner, disp Pad See Rx Instructions .Route Qty: 264 11RF Rx Instructions: As directed (DME) OneTouch Ultra Test Strip See Rx Instructions .ROUTE .COMPLEX Qty: 100 4RF Dose Instruction: USE TO TEST BLOOD SUGAR FOUR TIMES PER DAY Rx Instructions: USE TO TEST BLOOD SUGAR FOUR TIMES PER DAY rosuvastatin 40 mg tablet 40 mg PO DAILY 90 Days Qty: 90 2RF Mounjaro 10 mg/0.5 mL pen injector 10 mg subcut QWEEK Qty: 2 3RF Eliquis 5 mg tablet 5 mg PO BID lisinopril 10 mg tablet 5 mg PO DAILY diltiazem HCl 120 mg capsule,extended release 24hr 120 mg PO DAILY (DME) balance See Rx Instructions .Route .MEDSUPPLY Qty: 1 0RF Rx Instructions: As directed levothyroxine 137 mcg tablet 137 mcg PO DAILY@0600 Qty: 30 10RF insulin degludec [Tresiba FlexTouch U-100] 100 unit/mL (3 mL) insulin pen 12 unit subcut DAILY insulin lispro [Humalog KwikPen Insulin] 100 unit/mL insulin pen 0 sliding scale dose subcut TID Protocol: Insulin Correction Scale Less than or equal to 110 ---- Give (units): 0 111 to 150 Give (units): 0 151 to 200 Give (units): 2 201 to 250 Give (units): 4 251 to 300 Give (units): 6 301 to 350 Give (units): 8 Greater than 350 Give (units): 10 Call MD if Blood Glucose > : 350 (DME) Dexcom G7 Outside Barrel Lathe Operator Misc See Rx Instructions .Route Qty: 1 0RF Rx Instructions: As directed glucose [Dex4 Glucose] 4 gram tablet,chewable 16 g PO Q15M PRN (Reason: hypoglycemia (hipoglucemia)) Qty: 10 3RF Rx Instructions: until blood sugar is >70 (hasta que el nivel de azucar en yosef sea superior a 70) albuterol sulfate [Ventolin HFA] 90 mcg/actuation HFA aerosol inhaler 2 puff inhalation Q6H PRN (Reason: shortness of breath or wheezing) 30 Days Qty: 8 1RF Discontinued metoprolol succinate 50 mg tablet extended release 24 hr 50 mg PO DAILY Discharge Orders: Discharge Order (Routine); Ordered 05/23/25 Ordered By: Eugene Quick Activity on Discharge: As tolerated Stand Alone Forms: Patient Portal Discharge page Print Language: Comoran Care Plan Goals: For stroke, continue medications for stroke prevention for atrial flutter, take medications as scheduled follow up with cardiology, neurology and PCP in outpatient setting Health Concerns: stroke, continue taking medications as ordered for secondary stroke prevention atrial flutter, take metoprolol, diltiazem and digoxin as scheduled, follow up with cardiology Plan of Treatment: continue eliquis and aspirin, metoprolol tartrate, diltiazem and digoxin continue rosuvastatin 40mg Assessment: 70-year-old female with a past medical history significant for AFib on Eliquis (noncompliant), insulin-dependent diabetes with diabetic retinopathy, cardiomyopathy, hypothyroid, chronic anemia and hypertension, who presented to the ED due to blurry vision headache and dizziness. found to have CVA of R occipital area. Patient then had episodes of atrial flutter, given metoprolol, diltiazem, amiodarone and digoxin loading dose, with mild improvement, on day of discharge, patient's blood pressure within normal limits, rate and rhythm adequate, patient to be discharged on digoxin, patient advised to follow up with primary care provider, importance of taking Eliquis and atrial flutter medications. Patient designated understanding. Patient Instructions: A-fib (Atrial Fibrillation) (DC), DASH Eating Plan (DC), Stroke (DC)
--- NOTE | 2025-05-23 14:43 | MHC.CM.PN ---
PT CLEARED TO DC HOME TODAY WITH NO NEW SERVICES INDICATED FAMILY TO TRANSPORT
== END 2025-05-23 16:05 | disposition home or self-care (01) | DRG 65 ==
LOC: HO.ED 19:18 → HO.EDOVER 20:14 → HO.IMC 05-20 16:28
PROVIDERS: Hospitalist; Physician Assistant Medical; Admitting Provider Physician Assistant; Emergency Provider Emergency Medicine; PCP Internal Medicine; Visit Provider Student in an Organized Health Care Education/Training Program
DX: I63.431 Cerebral infarction due to embolism of right posterior cerebral artery (principal); I45.2 Bifascicular block; H53.8 Other visual disturbances; E03.9 Hypothyroidism, unspecified; Z20.822 Contact with and (suspected) exposure to COVID-19; R29.700 NIHSS score 0; Z91.148 Patient's other noncompliance with medication regimen for other reason; I48.0 Paroxysmal atrial fibrillation; D64.9 Anemia, unspecified; E11.9 Type 2 diabetes mellitus without complications; I10 Essential (primary) hypertension; Z66 Do not resuscitate; E66.811 Obesity, class 1; Z71.3 Dietary counseling and surveillance; Z68.33 Body mass index [BMI] 33.0-33.9, adult; Z79.01 Long term (current) use of anticoagulants; Z79.85 Long-term (current) use of injectable non-insulin antidiabetic drugs; Z79.4 Long term (current) use of insulin; Z79.890 Hormone replacement therapy; Z79.899 Other long term (current) drug therapy
CPT/HCPCS: 36415; 70450; 70496; 70498; 70551; 80048; 80053; 80061; 82947; 83735; 84484; 85025; 85027; 85610; 87637; 93005; 93306; 97116; 97161; 97166; 97530; 99285; J0283; J0616; J1160; J2270; J2405; Q9967

== ENCOUNTER → 2025-05-19 13:58 | Outpatient (BNV) | payer OTHER, SELFPAY | PROVIDERS: Emergency Provider Emergency Medicine; PCP Internal Medicine; Visit Provider Internal Medicine | DX: R00.1 Bradycardia, unspecified (principal); I49.9 Cardiac arrhythmia, unspecified; I45.2 Bifascicular block | CPT/HCPCS: 93010 ==

== ENCOUNTER → 2025-05-19 15:13 | Outpatient (BNV) | payer OTHER, SELFPAY | PROVIDERS: Emergency Provider Emergency Medicine; PCP Internal Medicine; Visit Provider Radiology Diagnostic Ultrasound | DX: I63.9 Cerebral infarction, unspecified (principal); R51.9 Headache, unspecified; H53.8 Other visual disturbances | CPT/HCPCS: 70450; 70551 ==

== ENCOUNTER 2025-05-19 20:11 | Outpatient (BNV) | payer OTHER, SELFPAY | END 2025-05-21 12:42 | PROVIDERS: Admitting Provider Physician Assistant; Emergency Provider Emergency Medicine; PCP Internal Medicine; Visit Provider Internal Medicine | DX: I48.92 Unspecified atrial flutter (principal); I45.10 Unspecified right bundle-branch block | CPT/HCPCS: 93010 ==

== ENCOUNTER 2025-05-19 20:11 | Outpatient (BNV) | payer OTHER, SELFPAY | END 2025-05-20 07:00 | PROVIDERS: Admitting Provider Physician Assistant; Emergency Provider Emergency Medicine; PCP Internal Medicine; Visit Provider Internal Medicine | DX: I50.30 Unspecified diastolic (congestive) heart failure (principal) | CPT/HCPCS: 93306 ==

== ENCOUNTER 2025-05-19 20:11 | Outpatient (BNV) | payer OTHER, SELFPAY | END 2025-05-21 16:19 | PROVIDERS: Admitting Provider Physician Assistant; Emergency Provider Emergency Medicine; PCP Internal Medicine; Visit Provider Radiology Diagnostic Radiology | DX: I63.531 Cerebral infarction due to unspecified occlusion or stenosis of right posterior cerebral artery (principal) | CPT/HCPCS: 70496; 70498 ==

== ENCOUNTER 2025-05-19 20:11 | Outpatient (BNV) | payer OTHER, SELFPAY | END 2025-05-22 08:00 | PROVIDERS: Admitting Provider Physician Assistant; Emergency Provider Emergency Medicine; PCP Internal Medicine; Visit Provider Radiology Diagnostic Radiology | DX: I63.9 Cerebral infarction, unspecified (principal) | CPT/HCPCS: 70450 ==

== ENCOUNTER → 2025-05-19 20:11 | Outpatient (BNV) | payer OTHER, SELFPAY | PROVIDERS: Admitting Provider Physician Assistant; Emergency Provider Emergency Medicine; PCP Internal Medicine; Visit Provider Internal Medicine | DX: I48.92 Unspecified atrial flutter (principal) | CPT/HCPCS: 99233 ==

== ENCOUNTER → 2025-05-19 20:11 | Outpatient (BNV) | payer OTHER, SELFPAY | PROVIDERS: Admitting Provider Physician Assistant; Emergency Provider Emergency Medicine; PCP Internal Medicine; Visit Provider Student in an Organized Health Care Education/Training Program | DX: I63.9 Cerebral infarction, unspecified (principal); I48.91 Unspecified atrial fibrillation; E11.65 Type 2 diabetes mellitus with hyperglycemia | CPT/HCPCS: 99223; 99232; 99233; 99499 ==

== ENCOUNTER → 2025-05-19 20:11 | Outpatient (BNV) | payer OTHER, SELFPAY | PROVIDERS: Admitting Provider Physician Assistant; Emergency Provider Emergency Medicine; PCP Internal Medicine; Visit Provider Psychiatry & Neurology Neurology | DX: I63.9 Cerebral infarction, unspecified (principal) | CPT/HCPCS: 99223 ==

== ENCOUNTER 2025-06-05 10:04 | Outpatient (AMB) | payer OTHER, SELFPAY ==
--- NOTE | 2025-06-05 10:26 | A.OFFPC_ITS ---
Vital Signs 06/05/25 10:29 Height 5 ft 1 in Weight 173 lb BMI 32.7 BP 160/78 H Blood Pressure Location Lt brachial Position Sitting Pulse 50 Pulse Source Pulse Oximeter Temp 97.1 F Temp Source Temporal Artery Scan Pulse Oximetry (%) 97 Oxygen Delivery Method Room Air Intake Visit Reasons: [facility] 05/23 CVA Intake Note: Patient is here for hospital discharge and TCM follow up. Patient was discharged from [facility] on 05/23/25. Distillery Laborer Required: Yes Distillery Laborer Language: Architecture Department Chair Name: Rob [id number] Information Interpreted: non-clinical & clinical Call Circuit Worker: Not Required per policy Accompanied by: Self / Same As Patient Allergies empagliflozin (From JARDIANCE) Allergy (Intermediate, Verified 06/05/25 10:28) ITCHY/RASH dulaglutide (From Trulicity) Adverse Reaction (Intermediate, Verified 06/05/25 10:28) Abdominal Pain JARDIANCE Allergy (Intermediate, Uncoded 06/05/25 10:28) pruritus Medication List - Last Reconciled 06/05/25 by Marilyn Mcclendon NP [air conditioner As directed] apixaban (Eliquis) 5 mg PO BID aspirin 81 mg PO DAILY 30 days [balance As directed] blood pressure test kit-large As directed blood sugar diagnostic ([employer] Ultra Test strips) USE TO TEST BLOOD SUGAR FOUR TIMES PER DAY blood-glucose meter ([employer] Ultra2 Meter) As directed test 4 times a day blood-glucose,drug abuse worker,cont (Dexcom G7 Caddymaster) As directed cholecalciferol (vitamin D3) (Vitamin D3) 50 mcg PO DAILY Dexcom G7 Sensor (blood-glucose sensor) As directed change every 10 days NS digoxin 0.125 mg See Protocol PO DAILY 30 days diltiazem HCl CD 120 mg PO DAILY glucose (Dex4 Glucose) 16 grams (4 x 4 gram) PO Q15M PRN Grab bar As directed incontinence pad, liner, disp Use 1 pad every 6 hours as needed incontinence pad, liner, disp As directed insulin degludec (Tresiba FlexTouch U-100 insulin) 12 units subcut DAILY insulin lispro (Humalog KwikPen (U-100) Insulin) 0 sliding scale doses See Protocol subcut TID lancets ([employer] Delica Plus Lancet) USE TO TEST BLOOD SUGAR FOUR TIMES DAILY lancets (FreeStyle Lancets) As directed test 4X a day latex gloves (Latex Gloves, Large) As directed levothyroxine 137 mcg PO DAILY@0600 lisinopril 5 mg PO DAILY metoprolol tartrate 50 mg See Protocol PO BID 30 days nebulizers As directed rosuvastatin 40 mg PO DAILY 90 days tirzepatide (Mounjaro) 10 mg (0.5 mL) subcut QWEEK underpads (Bed Underpads) As directed Ventolin HFA 90 mcg/actuation (albuterol sulfate) 2 puffs inhalation Q6H PRN 30 days NS [wipes flushable As directed] Tobacco use date assessed: 06/05/25 Fall risk assessment: No Falls in past year Last assessed Fall Risk: 06/05/25 Dental Screening Dental Screen Date: 04/28/25 HPI TCM TCM Information Date of Discharge 05/24/25 Discharged From [facility] HPI Comments History of Present Illness Details The patient presents for TCM after hospital discharge (05/19?05/23) from [facility]. Past medical history significant for AFib on Eliquis (noncompliant), insulin-dependent diabetes with diabetic Retinopathy, cardiomyopathy, hypothyroid, chronic anemia and hypertension. She was admitted for evaluation of blurry vision, headache, and dizziness. Imaging revealed an acute CVA with right occipital infarct and left parietal infarct. Repeat CT on 05/22 confirmed these findings. She reports no residual neurological deficits at this time. During hospitalization, she had an episode of Atrial fibrillation, which was treated, and she was discharged home on aspirin, Digoxin, and metoprolol. She states she is currently feeling stable. She acknowledges prior noncompliance with Eliquis before admission but reports intent to be adherent with current medication regimen. She requests assistance with referrals to Cardiology and Neurology for outpatient follow-up as recommended at discharge. No current complaints of headache, vision changes, dizziness, weakness, numbness, chest pain, palpitations, dyspnea, or syncope. 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 Mother Arthritis Social History Household Members: Family and Children Household Members Other:: 2 Housing: Apartment Do you presently have visiting nurse or other home services: Yes ([facility]) Alcohol intake: never Patient Tobacco Use Status: Never used Tobacco e-Cigarette/Vaping Use: Never Used Second Hand Smoke Exposure: No service: No Current occupational status: disabled Cognitive needs: No Hearing needs: No Vision needs: No Questionnaire Thrive Questionnaire Date Thrive assessed: 07/14/24 I am a: Patient What is your living situation today?: I have a steady place to live Within the past 12 months, did the food you bought not last and you didn't have the money to get more?: I choose not to answer this question Within the past 12 months, did you worry whether your food would run out before you got money to buy more?: I choose not to answer this question Do you have trouble paying for medicines?: I choose not to answer this question Do you have trouble getting transportation to medical appointments?: I choose not to answer this question Do you have trouble paying your heating and electricity bill?: I choose not to answer this question Do you have trouble taking care of your child, family member or friend?: I choose not to answer this question Do you have trouble with day-to-day activities such as bathing, preparing meals, shopping, managing finances, etc.?: I choose not to answer this question Are you currently unemployed and looking for a job?: I choose not to answer this question Are you interested in more education?: I choose not to answer this question Please select the resources that you would like help with: None Currently or been in a relationship where the following occur: I choose not to answer THRIVE Score: 0 DIVINA-7 AMB Questionnaire DIVINA-7 Date DIVINA - 7 assessed: 07/14/24 Source: Developed by Drs. Kofi Arrington, Tracy Rowe, Al Kulkarni and colleagues, with an educational bobby from [employer]. Review of Systems Const All systems reviewed & are unremarkable except as noted in HPI and below Physical exam (Primary Care) Vital Signs: Last Vital Signs Temp 97.1 F 06/05/25 10:29 Pulse 50 06/05/25 10:29 BP 160/78 H 06/05/25 10:29 Pulse Ox 97 06/05/25 10:29 Oxygen Delivery Method Room Air 06/05/25 10:29 BMI result Body Mass Index 32.7 Tobacco/Smoking Status: Tobacco use Status Tobacco use date assessed 06/05/25 06/05/25 10:36 Patient Tobacco Use Status Never used Tobacco 06/05/25 10:27 e-Cigarette/Vaping Use Never Used 06/05/25 10:27 Thrive Assessment: Date of Thrive Assessment Date Thrive assessed 07/14/24 06/05/25 10:27 Currently or been in a relationship where the following occur: I choose not to answer Const General: no acute distress Nutritional Appearance: overweight Orientation/consciousness: patient oriented x3 HENMT Head: Yes normocephalic Eyes Pupils: Equal, round and reactive pupils present EOM: EOMs intact bilaterally Direct Ophthalmoscopy: normal light reflex Resp Effort & Inspection: normal respiratory effort Cardio Heart sounds: S1 normal heart sound present and S2 normal heart sound present Neuro Other: No focal deficits observed. Cranial nerves grossly intact. Normal speech and motor function. General: patient oriented x3, gait normal and moves all extremities Cranial nerves: Yes Equal, round and reactive pupils present Motor exam (neuro): 5/5 motor strength present throughout Psych Speech and movement: Normal speech and movement present Coding Level of Care Code TCM Mod MDM <= 14 Days Diagnoses Atrial fibrillation with RVR I48.91 Acute CVA (cerebrovascular accident) I63.9 Time Spent (min) 25 Assessment & Plan Assessment & Plan (1) Atrial fibrillation with RVR: Code(s): I48.91 - Unspecified atrial fibrillation Category: Medical Plan: Recent Acute CVA ? right occipital and left parietal infarcts; currently without residual deficits. Requires Neurology follow-up. Atrial Fibrillation ? treated inpatient; currently on aspirin, digoxin, metoprolol. Needs outpatient Cardiology evaluation and long-term management of Eliquis. Referrals: Neurology ? for post-stroke follow-up and monitoring. Cardiology ? for AFib management. Medication Review: Reinforced importance of strict adherence to prescribed medications, especially anticoagulation for stroke prevention. (2) Acute CVA (cerebrovascular accident): Code(s): I63.9 - Cerebral infarction, unspecified Category: Medical Plan: Recent Acute CVA ? right occipital and left parietal infarcts; currently without residual deficits. Requires Neurology follow-up. Atrial Fibrillation ? treated inpatient; currently on aspirin, digoxin, metoprolol. Needs outpatient Cardiology evaluation and long-term management of Eliquis. Referrals: Neurology ? for post-stroke follow-up and monitoring. Cardiology ? for AFib management. Medication Review: Reinforced importance of strict adherence to prescribed medications, especially anticoagulation for stroke prevention. Orders: Referrals Cardiology Referral I42.9 - Cardiomyopathy, unspecified, I48.91 - Unspecified atrial fibrillation Neurology Referral I63.9 - Cerebral infarction, unspecified
[2025-06-05 10:29] VITALS: BP 160/78; PULSE 50; TEMP 36.2; O2SAT 97; BMI 32.7
== END 2025-06-05 11:17 | disposition home or self-care (01) ==
LOC: HO.HMCH 10:05
PROVIDERS: PCP Internal Medicine; Visit Provider Nurse Practitioner Family
DX: I48.91 Unspecified atrial fibrillation (principal); I63.9 Cerebral infarction, unspecified

== ENCOUNTER → 2025-06-05 10:04 | Outpatient (BNVA) | payer OTHER, SELFPAY | PROVIDERS: PCP Internal Medicine; Visit Provider Nurse Practitioner Family | DX: I63.89 Other cerebral infarction (principal); I48.91 Unspecified atrial fibrillation; Z79.82 Long term (current) use of aspirin; Z79.01 Long term (current) use of anticoagulants; Z79.899 Other long term (current) drug therapy | CPT/HCPCS: 99495 ==

== ENCOUNTER 2025-06-11 13:37 | Outpatient (AMB) | payer OTHER, SELFPAY ==
--- NOTE | 2025-06-11 13:38 | MHC.OFFVIS ---
Vital Signs 06/11/25 13:39 Height 5 ft 1 in Weight 171 lb 4 oz BMI 32.4 BP 136/72 Blood Pressure Location Rt brachial Position Sitting Pulse 55 Pulse Source Auscultation Pulse Oximetry (%) 98 Oxygen Delivery Method Room Air Intake Visit Reasons: INP-Cerebral infarction, unspecified Intake Note: Unspecified Cerebral Infarction United [place] Attorney Required: Yes United [place] Attorney Services: [place] Attorney Offered & Declined United [place] Attorney Name: Андрей ID: [id number] Accompanied by: Self / Same As Patient Allergies empagliflozin (From JARDIANCE) Allergy (Intermediate, Verified 06/11/25 13:39) ITCHY/RASH dulaglutide (From Trulicity) Adverse Reaction (Intermediate, Verified 06/11/25 13:39) Abdominal Pain JARDIANCE Allergy (Intermediate, Uncoded 06/05/25 10:28) pruritus HPI Comments Details: [id number] Slovak intrepreter Андрей 70y/o female with Paroxysmal ATrial fibrillation /flutter with non compliance with medictaions was admitted for Acute Right DIRECTOR TRANSLATIONAL stroke ( Right occipital lobe and medial temporla lobe). she presented with blurred visit /she was restarted on Eliquis 5 mg bid and was seen by Dr. Gregg , Dr Allan and Dr. Martinez . she denies any new symptoms . she still has blurred vision - unclear if she was seen by ophthalmology. 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 Mother Arthritis Social History Household Members: Family and Children Household Members Other:: 2 Housing: Apartment Do you presently have visiting nurse or other home services: Yes ([facility]) Alcohol intake: never Patient Tobacco Use Status: Never used Tobacco e-Cigarette/Vaping Use: Never Used Second Hand Smoke Exposure: No service: No Current occupational status: disabled Cognitive needs: No Hearing needs: No Vision needs: No Physical Exam Vital Signs: Last Vital Signs Pulse 55 06/11/25 13:39 BP 136/72 06/11/25 13:39 Pulse Ox 98 06/11/25 13:39 Oxygen Delivery Method Room Air 06/11/25 13:39 BMI result Body Mass Index 32.4 Const General: cooperative, comfortable and no acute distress Nutritional Appearance: average body habitus Orientation/consciousness: patient oriented x3 Eyes Pupils: Equal, round and reactive pupils present Neuro General: patient oriented x3, gait normal, tone normal, moves all extremities and no focal motor deficits Cranial nerves: Yes Facial sensation intact/muscles of mastication intact, Yes Equal, round and reactive pupils present, Yes Bilaterally intact EOM present, Yes Nystagmus not present, Yes Normal facial strength present, Yes Midline tongue present and Yes Ability to bilaterally elevate shoulders present Gait exam (Neuro): Normal gait present Motor exam (neuro): 5/5 motor strength present throughout and Normal motor muscle tone present throughout Deep tendon reflexes (DTR's): Right triceps reflex intensity grade: 1+, Left triceps reflex intensity grade: 1+, Rt Biceps (C5, C6): 1+, Left biceps reflex intensity grade: 1+, Right brachioradialis reflex intensity grade: 1+, Left brachioradialis reflex intensity grade: 1+, Right patellar reflex intensity grade: 1+ and Left patellar reflex intensity grade: 1+ Results Reviewed Results Reviewed: CTA There is abrupt cut off of the left vertebral artery at the level of C7 and vessel is again identified at approximately C5-6. It is uncertain if the cut off is due to occlusion or if it is related to beam hardening artifact secondary to refluxed contracts into an adjacent vein. Otherwise, no hemodynamically significant stenosis. CTA HEAD: No cut off or visualized hemodynamically significant stenosis. Assessment & Plan Assessment & Plan (1) Embolic cerebral infarction: Code(s): I63.40 - Cerebral infarction due to embolism of unspecified cerebral artery Category: Medical Qualifiers: Precerebral and cerebral artery: posterior cerebral artery Laterality of affected vessel: right Qualified Code(s): I63.431 - Cerebral infarction due to embolism of right posterior cerebral artery Plan Continue Eliquis 5 mg bid F/U with Cardiology Her future neurology appointments will be with Jerrell Mayfield Coding Level of Care Code Add On Problem Visit Only Diagnoses Cerebral infarction due to embolism of right posterior cerebral artery I63.431 Precerebral and cerebral artery: posterior cerebral artery Laterality of affected vessel: right
[2025-06-11 13:39] VITALS: BP 136/72; PULSE 55; O2SAT 98; BMI 32.4
--- OUTSIDE RECORDS SUMMARY | 2025-06-11 20:52 | XMS_ITS | Encounter Summary ---
Author Organization [employer] Address [address] [place] [address] 7 [place] [address] Care Team Providers Care Engineering Documentation Specialist Name Role Phone Unavailable Primary Care Provider Unavailabl e Reason for Visit * Reason Comments Med Refill Encounter Details Date Type Department Care Team ([facility] st Contact Info) Description 07/01/2024 Refill [facility] CHC MED & PEDS 505 [place] [address] Ganesh Alvarado MD 505 [place] [address] Social History Tobacco Use Types Packs/Day Years [...]
--- OUTSIDE RECORDS SUMMARY | 2025-06-11 20:52 | XMS_ITS | Encounter Summary ---
Author Organization [employer] Address [address] [place] [address] 7 [place] [address] Care Team Providers Care Php Programmer Name Role Phone Unavailable Primary Care Provider Unavailabl e Reason for Visit * Reason Comments Med Refill Encounter Details Date Type Department Care Team ([facility] st Contact Info) Description 04/09/2024 Refill [facility] CHC MED & PEDS 505 [place] [address] Ganesh Alvarado MD 505 [place] [address] Social History Tobacco Use Types Packs/Day Years [...]
--- OUTSIDE RECORDS SUMMARY | 2025-06-11 20:52 | XMS_ITS | Encounter Summary ---
Author Organization [employer] Address [address] [place] [address] 7 [place] [address] Care Team Providers Care Commercial Illustrator Name Role Phone Unavailable Primary Care Provider Unavailabl e Reason for Visit * Reason Comments Med Refill Encounter Details Date Type Department Care Team ([facility] st Contact Info) Description 05/06/2024 Refill [facility] CHC MED & PEDS 505 [place] [address] Ganesh Alvarado MD 505 [place] [address] Social History Tobacco Use Types Packs/Day Years [...]
--- OUTSIDE RECORDS SUMMARY | 2025-06-11 20:52 | XMS_ITS | Encounter Summary ---
Author Organization [employer] Address [address] [place] [address] 7 [place] [address] Care Team Providers Care Engineering Executive Name Role Phone Unavailable Primary Care Provider Unavailabl e Reason for Visit * Reason Comments Med Refill Encounter Details Date Type Department Care Team ([facility] st Contact Info) Description 04/10/2024 Refill [facility] CHC MED & PEDS 505 [place] [address] Ganesh Alvarado MD 505 [place] [address] Social History Tobacco Use Types Packs/Day Years [...]
--- OUTSIDE RECORDS SUMMARY | 2025-06-11 20:52 | XMS_ITS | Encounter Summary ---
Author Organization [employer] Address [address] [place] [address] 7 [place] [address] Care Team Providers Care Commercial Sales Director Name Role Phone Unavailable Primary Care Provider Unavailabl e Reason for Visit * Reason Comments Med Refill Encounter Details Date Type Department Care Team ([facility] st Contact Info) Description 01/17/2024 Refill [facility] CHC MED & PEDS 505 [place] [address] Ganesh Alvarado MD 505 [place] [address] Social History Tobacco Use Types Packs/Day Years [...]
--- OUTSIDE RECORDS SUMMARY | 2025-06-11 20:52 | XMS_ITS | Encounter Summary ---
Author Organization [employer] Address [address] [place] [address] 7 [place] [address] Care Team Providers Care Paper Slitter Name Role Phone Unavailable Primary Care Provider Unavailabl e Reason for Visit * Reason Comments Med Refill Encounter Details Date Type Department Care Team ([facility] st Contact Info) Description 10/08/2024 Refill [facility] CHC MED & PEDS 505 [place] [address] Ganesh Alvarado MD 505 [place] [address] Social History Tobacco Use Types Packs/Day Years [...]
--- OUTSIDE RECORDS SUMMARY | 2025-06-11 20:52 | XMS_ITS | Clinical Summary ---
Author Organization [employer] Address [address] [place] [address] 7t [place] [address] Care Team Providers Care Respiratory Supervisor Name Role Phone Unavailable Primary Care [...] 239 mg/dL HDL Cholesterol 41 mg/dL [facility] Comment: Desirable HDL: greater than 40 mg/dL Note: This HDL assay may give artificially low results in patients with liver disease. LDL Cholesterol Calculated 127 mg/dl [facility] Comment: Desirable LDL: [...] >60 [facility] Comment: NOTE: For -Faroese individuals, multiply the result by 1.210. Chronic Kidney Disease: Estimated GFR < 60 mL/min/1.73m2 Severe Kidney Disease: Estimated GFR < 15 mL/min/1.73m2 Glucose Fasting 110(H) 60 - 99 mg/dL [facility] Comment: A fasting glucose from 100-125 mg/dl is considered impaired (pre-diabetes). Potassium 4.8 3.3 - 5.1 mmol/l [facility] Sodium 143 135 - 145 mmol/L [facility] Total Protein 6.9 6.5 - 8.0 g/dL [facility] Vitamin D 25-OH Total 50.3 >30 ng/mL [facility] Comment: Health Based [...] ORDERABLE LABS Final Result Performing Organization Address City/State/[facility] Co de Phone Number [facility] [address] [place] [address] * Mammography Report 1 (05/04/2020 9:06 AM [...] Recently Relevant to Health Maintenance Insurance [place] [address] [place] [phone]
--- OUTSIDE RECORDS SUMMARY | 2025-06-11 20:52 | XMS_ITS | Encounter Summary ---
Author Organization [employer] Address [address] [place] [address] 7 [place] [address] Care Team Providers Care Correction Worker Name Role Phone Unavailable Primary Care Provider Unavailabl e Reason for Visit * Reason Comments Med Refill Encounter Details Date Type Department Care Team ([facility] st Contact Info) Description 06/04/2024 Refill [facility] CHC MED & PEDS 505 [place] [address] Ganesh Alvarado MD 505 [place] [address] Social History Tobacco Use Types Packs/Day Years [...]
--- OUTSIDE RECORDS SUMMARY | 2025-06-11 20:52 | XMS_ITS | Encounter Summary ---
Author Organization [employer] Address [address] [place] [address] 7 [place] [address] Care Team Providers Care Building Coordinator Name Role Phone Unavailable Primary Care Provider Unavailabl e Reason for Visit * Reason Comments Med Refill Encounter Details Date Type Department Care Team ([facility] st Contact Info) Description 11/26/2024 Refill [facility] CHC MED & PEDS 505 [place] [address] Ganesh Alvarado MD 505 [place] [address] Social History Tobacco Use Types Packs/Day Years [...]
--- OUTSIDE RECORDS SUMMARY | 2025-06-11 20:53 | XMS_ITS | Encounter Summary ---
Author Organization [facility] Address [address] [place] [address] 7 [place] [address] Care Team Providers Care Van Loader Name Role Phone Ganesh Alvarado MD Primary Care Provider [phone] Reason for Visit * Reason Comments Med Refill Encounter Details Date Type Department Care Team (Late st Contact Info) Description 08/06/2023 Refill [facility] MEDICINE [address] [place] [address] Ganesh Alvarado MD 505 [place], [place] [id number] Social History Tobacco Use Types Packs/Day Years [...] on filedocumented in this encounter Care Teams Van Loader Relationship Specialty Start Date End Date Ganesh Alvarado MD 505 [place] [address] PCP - General Internal Medicine 12/21/17 09/05/23 documented as of this encounter
--- OUTSIDE RECORDS SUMMARY | 2025-06-11 20:53 | XMS_ITS | Encounter Summary ---
Author Organization [employer] Address [address] [place] [address] 7 [place] [address] Care Team Providers Care Motion Picture Narrator Name Role Phone Unavailable Primary Care Provider Unavailabl e Reason for Visit * Reason Comments Med Refill Encounter Details Date Type Department Care Team ([facility] st Contact Info) Description 11/06/2023 Refill [facility] CHC MED & PEDS 505 [place] [address] Ganesh Alvarado MD 505 [place] [address] Social History Tobacco Use Types Packs/Day Years [...]
--- OUTSIDE RECORDS SUMMARY | 2025-06-11 20:53 | XMS_ITS | Encounter Summary ---
Author Organization [employer] Address [address] [place] [address] 7 [place] [address] Care Team Providers Care Soaping Department Supervisor Name Role Phone Unavailable Primary Care Provider Unavailabl e Reason for Visit * Reason Comments Med Refill Encounter Details Date Type Department Care Team ([facility] st Contact Info) Description 08/26/2024 Refill [facility] CHC MED & PEDS 505 [place] [address] Ganesh Alvarado MD 505 [place] [address] Social History Tobacco Use Types Packs/Day Years [...]
--- OUTSIDE RECORDS SUMMARY | 2025-06-11 20:53 | XMS_ITS | Encounter Summary ---
Author Organization [employer] Address [address] [place] [address] 7 [place] [address] Care Team Providers Care Medical Case Worker Name Role Phone Unavailable Primary Care Provider Unavailabl e Reason for Visit * Reason Comments Med Refill Encounter Details Date Type Department Care Team ([facility] st Contact Info) Description 11/02/2023 Refill [facility] CHC MED & PEDS 505 [place] [address] Ganesh Alvarado MD 505 [place] [address] Social History Tobacco Use Types Packs/Day Years [...]
--- OUTSIDE RECORDS SUMMARY | 2025-06-11 20:53 | XMS_ITS | Encounter Summary ---
Author Organization [employer] Address [address] [place] [address] 7 [place] [address] Care Team Providers Care Pole Peeling Machine Operator Name Role Phone Ganesh Alvarado MD Primary Care Provider [phone] Reason for Visit * Reason Comments Med Refill Encounter Details Date Type Department Care Team ([facility] st Contact Info) Description 06/08/2023 Refill [facility] CHC MED & PEDS [address] [place] [address] Ganesh Alvarado MD 505 [place] [address] Social History Tobacco Use Types Packs/Day Years [...] on filedocumented in this encounter Care Teams Pole Peeling Machine Operator Relationship Specialty Start Date End Date Ganesh Alvarado MD 505 [place] [address] PCP - General Internal Medicine 12/21/17 09/05/23 documented as of this encounter
--- OUTSIDE RECORDS SUMMARY | 2025-06-11 20:53 | XMS_ITS | Encounter Summary ---
Author Organization [employer] Address [address] [place] [address] 7 [place] [address] Care Team Providers Care Career Orientation Teacher Name Role Phone Unavailable Primary Care Provider Unavailabl e Reason for Visit * Reason Comments Med Refill Encounter Details Date Type Department Care Team ([facility] st Contact Info) Description 10/18/2023 Refill [facility] MEDICINE [address] [place] [address] Ganesh Alvarado MD 505 [place] [address] Social History Tobacco Use Types Packs/Day Years [...]
--- OUTSIDE RECORDS SUMMARY | 2025-06-11 20:53 | XMS_ITS | Encounter Summary ---
Author Organization [employer] Address [address] [place] [address] 7 [place] [address] Care Team Providers Care Dental Office Coordinator Name Role Phone Ganesh Alvarado MD Primary Care Provider [phone] Encounter Details Date Type Department Care Team ([facility] st Contact Info) Description 11/24/2022 Abstract [facility] CHC MED & PEDS [address] [place] [address] Ganesh Alvarado MD 505 [place] [address] Social History Tobacco Use Types Packs/Day Years [...] on filedocumented in this encounter Care Teams Dental Office Coordinator Relationship Specialty Start Date End Date Ganesh Alvarado MD 505 [place] [address] PCP - General Internal Medicine 12/21/17 09/05/23 documented as of this encounter
--- OUTSIDE RECORDS SUMMARY | 2025-06-11 20:53 | XMS_ITS | Encounter Summary ---
Author Organization [employer] Address [address] [place] [address] 7 [place] [address] Care Team Providers Care Bookmaker'S Clerk Name Role Phone Unavailable Primary Care Provider Unavailabl e Reason for Visit * Reason Comments Med Refill Encounter Details Date Type Department Care Team ([facility] st Contact Info) Description 07/29/2024 Refill [facility] CHC MED & PEDS [address] [place] [address] Ganesh Alvarado MD 505 [place] [address] Social History Tobacco Use Types Packs/Day Years [...]
== END 2025-06-11 15:03 | disposition home or self-care (01) ==
LOC: HO.HSMS 13:38
PROVIDERS: PCP Internal Medicine; Visit Provider Psychiatry & Neurology Neurology
DX: I63.431 Cerebral infarction due to embolism of right posterior cerebral artery (principal)
CPT/HCPCS: 99213; G2211

== ENCOUNTER → 2025-06-11 13:37 | Outpatient (BNVA) | payer OTHER, SELFPAY | PROVIDERS: PCP Internal Medicine; Visit Provider Psychiatry & Neurology Neurology | DX: I63.431 Cerebral infarction due to embolism of right posterior cerebral artery (principal); Z79.01 Long term (current) use of anticoagulants | CPT/HCPCS: 99212 ==

== ENCOUNTER 2025-06-16 08:48 | Emergency (ER) | payer OTHER, SELFPAY ==
--- NOTE | ~2025-06-16 | XR_ITS ---
EXAMINATION: XR ANKLE, right CLINICAL INFORMATION: Fall, Right ankle pain COMPARISON: None available. TECHNIQUE: AP, lateral, and mortise views lower extremity joint, ankle. FINDINGS: Ankle mortise is congruent. There is no widening of the syndesmosis. Talar dome is intact. There is a moderate size plantar calcaneal enthesophyte(s). There are marginal osteophytes dorsal midfoot. XR/XR ankle RT min 3V IMPRESSION: No acute bony abnormality. Mild degenerative changes are present in the midfoot. There is a calcaneal spur, a nonspecific finding. Electronically signed by: Walt Guy MD 06/16/2025 09:45 AM EST
--- NOTE | ~2025-06-16 | CT_ITS ---
EXAMINATION: CT HEAD WITHOUT CONTRAST CLINICAL INFORMATION: Fall, anticoagulated COMPARISON: 05/22/2025 TECHNIQUE: Contiguous axial imaging was performed from the skull base to vertex without intravenous administration of contrast. This CT examination was performed using dose optimization techniques as appropriate, variously including the following: *Automated exposure control *Adjustment of mA and/or kV according to patient size (this includes techniques or standardized protocols for targeted exams where dose is matched to indication/reason for exam; i.e. extremities or head) *Use of iterative reconstruction technique FINDINGS: There is no acute ischemic change. There is focal encephalomalacia in the anterior left parietal and far medial right occipital lobe demonstrating normal position the since the prior CT. Periventricular and subcortical white matter hypodensities are noted which are nonspecific, but often seen in the setting of small vessel ischemic disease. There is no intracranial hemorrhage. There is no mass-effect or midline shift. Basal cisterns and ventricles are within normal limits for age/cerebral volume. Orbits are symmetrical and unremarkable aside from changes related to cataract surgery. Paranasal sinuses and mastoid air cells are pneumatized. There are no bony abnormalities. CT/CT head/brain wo IV con IMPRESSION: No acute intracranial abnormality. Chronic ischemic changes, as noted above. Electronically signed by: Walt Guy MD 06/16/2025 11:00 AM KRAIG
--- NOTE | ~2025-06-16 | XR_ITS ---
EXAMINATION: XR KNEE, RIGHT CLINICAL INFORMATION: Fall, Right knee pain COMPARISON: X-ray 01/09/2025 TECHNIQUE: Four views of the right knee. FINDINGS: Moderate tricompartment osteoarthritis, joint space loss, marginal osteophytes. No acute fracture, dislocation or suspicious bony lesion. Small suprapatellar joint fluid. XR/XR knee RT 4V IMPRESSION: Moderate tricompartment osteoarthritis. No radiographic evidence of acute fracture. Electronically signed by: Kayode Michael MD 06/16/2025 09:41 AM EST
--- NOTE | ~2025-06-16 | CT_ITS ---
EXAMINATION: CT CERVICAL SPINE WITHOUT CONTRAST CLINICAL INFORMATION: Fall COMPARISON: X-ray September 17, 2018 TECHNIQUE: Axial imaging was performed from the base of the skull through T2 without IV contrast. Coronal and sagittal reformatted images were generated from the original axial data set. ALARA: The examination used one or more of the following radiation dose reduction techniques: Automated exposure control, iterative reconstruction, and/or adjustment of mA and/or KV. FINDINGS: There is mild reversal cervical lordosis. There are multilevel degenerative changes with mild to moderate disc space narrowing and endplate osteophytes most pronounced at C3-4 and C5-6. There is subtle retrolisthesis at C5-6 and anterolisthesis at C7-T1. There is also facet sclerosis and osteophytes most pronounced on the left at C2-3 and C6-7. No acute fracture line is identified. Lung apexes are unremarkable. Soft tissues are unremarkable. There is no prevertebral soft tissue edema. CT/CT cervical spine wo IV con IMPRESSION: IMPRESSION: No acute bony abnormality. There is mild reversal of cervical lordosis. This can be related to degenerative changes, positioning, muscle spasm, or posterior soft tissue injury. Degenerative changes are most at C5-6, followed by C3-4. Electronically signed by: Walt Guy MD 06/16/2025 10:56 AM KRAIG
[2025-06-16 09:00] VITALS: BP 195/90; PULSE 49; RESP 16; TEMP 36.4; O2SAT 99; BMI 33.0
[2025-06-16 09:09] VITALS: BP 140/56; PULSE 53; O2SAT 99
--- NOTE | 2025-06-16 09:42 | PC.NURSE ---
patient able to get to commode with one assist. able to stand and pivot and place self back into bed.
--- OUTSIDE RECORDS SUMMARY | 2025-06-16 10:51 | XMS_ITS | Encounter Summary ---
Author Organization [employer] Address [address] [place] [address] 7 [place] [address] Care Team Providers Care Shafting Cleaner Name Role Phone Unavailable Primary Care Provider Unavailabl e Reason for Visit * Reason Comments Med Refill Encounter Details Date Type Department Care Team ([facility] st Contact Info) Description 07/29/2024 Refill [facility] CHC MED & PEDS 505 [place] [address] Ganesh Alvarado MD 505 [place] [address] Social History Tobacco Use Types Packs/Day Years [...]
--- OUTSIDE RECORDS SUMMARY | 2025-06-16 10:51 | XMS_ITS | Encounter Summary ---
Author Organization [facility] Address [address] [place] [address] 7 [place] [address] Care Team Providers Care Cement Boat And Barge Loader Name Role Phone Ganesh Alvarado MD Primary Care Provider [phone] Reason for Visit * Reason Comments Med Refill Encounter Details Date Type Department Care Team (Late st Contact Info) Description 08/06/2023 Refill [facility] MEDICINE [address] [place] [address] Ganesh Alvarado MD 505 [place], [place] [id number] Social History Tobacco Use Types Packs/Day Years [...] on filedocumented in this encounter Care Teams Cement Boat And Barge Loader Relationship Specialty Start Date End Date Ganesh Alvarado MD 505 [place] [address] PCP - General Internal Medicine 12/21/17 09/05/23 documented as of this encounter
--- OUTSIDE RECORDS SUMMARY | 2025-06-16 10:51 | XMS_ITS | Encounter Summary ---
Author Organization [employer] Address [address] [place] [address] 7 [place] [address] Care Team Providers Care Sheet Cutting Operator Name Role Phone Ganesh Alvarado MD Primary Care Provider [phone] Reason for Visit * Reason Comments Med Refill Encounter Details Date Type Department Care Team ([facility] [place] st Contact Info) Description 06/08/2023 Refill [facility] CHC MED & PEDS 505 [place] [address] Ganesh Alvarado MD [address] [place] [address] Social History Tobacco Use Types Packs/Day Years [...] on filedocumented in this encounter Care Teams Sheet Cutting Operator Relationship Specialty Start Date End Date Ganesh Alvarado MD [address] [place] [address] PCP - General Internal Medicine 12/21/17 09/05/23 documented as of this encounter
--- OUTSIDE RECORDS SUMMARY | 2025-06-16 10:51 | XMS_ITS | Clinical Summary ---
Author Organization [employer] Address [address] [place] [address] 7t [place] [address] Care Team Providers Care Estate Planning Attorney Name Role Phone Unavailable Primary Care [...] 239 mg/dL HDL Cholesterol 41 mg/dL [facility] Comment: Desirable HDL: greater than [...] >60 [facility] Comment: NOTE: For -Dominican individuals, multiply the result by 1.210. Chronic [...] ORDERABLE LABS Final Result Performing Organization Address City/State/[facility] Co de Phone Number [facility] [address] [place] [address] * Mammography Report 1 (05/04/2020 9:06 AM [...] Recently Relevant to Health Maintenance Insurance [place] [address] [place] [phone]
--- OUTSIDE RECORDS SUMMARY | 2025-06-16 10:51 | XMS_ITS | Encounter Summary ---
Author Organization [employer] Address [address] [place] [address] 7 [place] [address] Care Team Providers Care Cardiovascular Physician Assistant Name Role Phone Unavailable Primary Care Provider Unavailabl e Reason for Visit * Reason Comments Med Refill Encounter Details Date Type Department Care Team ([facility] st Contact Info) Description 08/26/2024 Refill [facility] CHC MED & PEDS 505 [place] [address] Ganesh Alvarado MD 505 [place] [address] Social History Tobacco Use Types Packs/Day Years [...]
--- OUTSIDE RECORDS SUMMARY | 2025-06-16 10:51 | XMS_ITS | Encounter Summary ---
Author Organization [employer] Address [address] [place] [address] 7 [place] [address] Care Team Providers Care Tax Examiner Name Role Phone Unavailable Primary Care Provider Unavailabl e Reason for Visit * Reason Comments Med Refill Encounter Details Date Type Department Care Team ([facility] st Contact Info) Description 10/18/2023 Refill [facility] MEDICINE [address] [place] [address] Ganesh Alvarado MD 505 [place] [address] Social History Tobacco Use Types Packs/Day Years [...]
--- OUTSIDE RECORDS SUMMARY | 2025-06-16 10:51 | XMS_ITS | Encounter Summary ---
Author Organization [employer] Address [address] [place] [address] 7 [place] [address] Care Team Providers Care Concert Or Lecture Hall Manager Name Role Phone Unavailable Primary Care Provider Unavailabl e Reason for Visit * Reason Comments Med Refill Encounter Details Date Type Department Care Team ([facility] st Contact Info) Description 11/26/2024 Refill [facility] CHC MED & PEDS [address] [place] [address] Ganesh Alvarado MD 505 [place] [address] Social History Tobacco Use Types Packs/Day Years [...]
--- OUTSIDE RECORDS SUMMARY | 2025-06-16 10:51 | XMS_ITS | Encounter Summary ---
Author Organization [employer] Address [address] [place] [address] 7 [place] [address] Care Team Providers Care Passenger Service Manager Name Role Phone Unavailable Primary Care Provider Unavailabl e Reason for Visit * Reason Comments Med Refill Encounter Details Date Type Department Care Team ([facility] st Contact Info) Description 07/01/2024 Refill [facility] CHC MED & PEDS 505 [place] [address] Ganesh Alvarado MD 505 [place] [address] Social History Tobacco Use Types Packs/Day Years [...]
--- OUTSIDE RECORDS SUMMARY | 2025-06-16 10:51 | XMS_ITS | Encounter Summary ---
Author Organization [employer] Address [address] [place] [address] 7 [place] [address] Care Team Providers Care Hvac Technician Name Role Phone Unavailable Primary Care Provider Unavailabl e Reason for Visit * Reason Comments Med Refill Encounter Details Date Type Department Care Team ([facility] st Contact Info) Description 11/06/2023 Refill [facility] CHC MED & PEDS [address] [place] [address] Ganesh Alvarado MD [address] [place] [address] Social History Tobacco Use Types Packs/Day Years [...]
--- OUTSIDE RECORDS SUMMARY | 2025-06-16 10:51 | XMS_ITS | Encounter Summary ---
Author Organization [employer] Address [address] [place] [address] 7 [place] [address] Care Team Providers Care Engineering Project Manager Name Role Phone Unavailable Primary Care Provider Unavailabl e Reason for Visit * Reason Comments Med Refill Encounter Details Date Type Department Care Team ([facility] st Contact Info) Description 04/09/2024 Refill [facility] CHC MED & PEDS [address] [place] [address] Ganesh Alvarado MD [address] [place] [address] Social History Tobacco Use Types Packs/Day Years [...]
--- OUTSIDE RECORDS SUMMARY | 2025-06-16 10:51 | XMS_ITS | Encounter Summary ---
Author Organization [employer] Address [address] [place] [address] 7 [place] [address] Care Team Providers Care Bowling Ball Assembler Name Role Phone Unavailable Primary Care Provider Unavailabl e Reason for Visit * Reason Comments Med Refill Encounter Details Date Type Department Care Team ([facility] st Contact Info) Description 05/06/2024 Refill [facility] CHC MED & PEDS [address] [place] [address] Ganesh Alvarado MD [address] [place] [address] Social History Tobacco Use Types Packs/Day Years [...]
--- OUTSIDE RECORDS SUMMARY | 2025-06-16 10:51 | XMS_ITS | Encounter Summary ---
Author Organization [employer] Address [address] [place] [address] 7 [place] [address] Care Team Providers Care Mixing Tumbler Operator Name Role Phone Ganesh Alvarado MD Primary Care Provider [phone] Encounter Details Date Type Department Care Team ([facility] st Contact Info) Description 11/24/2022 Abstract [facility] CHC MED & PEDS [address] [place] [address] Ganesh Alvarado MD [address] [place] [address] Social History Tobacco Use Types Packs/Day Years [...] on filedocumented in this encounter Care Teams Mixing Tumbler Operator Relationship Specialty Start Date End Date Ganesh Alvarado MD [address] [place] [address] PCP - General Internal Medicine 12/21/17 09/05/23 documented as of this encounter
--- OUTSIDE RECORDS SUMMARY | 2025-06-16 10:51 | XMS_ITS | Encounter Summary ---
Author Organization [employer] Address [address] [place] [address] 7 [place] [address] Care Team Providers Care Fixed Income Manager Name Role Phone Unavailable Primary Care Provider Unavailabl e Reason for Visit * Reason Comments Med Refill Encounter Details Date Type Department Care Team ([facility] st Contact Info) Description 01/17/2024 Refill [facility] CHC MED & PEDS [address] [place] [address] Ganesh Alvarado MD [address] [place] [address] Social History Tobacco Use Types Packs/Day Years [...]
--- OUTSIDE RECORDS SUMMARY | 2025-06-16 10:51 | XMS_ITS | Encounter Summary ---
Author Organization [employer] Address [address] [place] [address] 7 [place] [address] Care Team Providers Care Bookmaker Map Name Role Phone Unavailable Primary Care Provider Unavailabl e Reason for Visit * Reason Comments Med Refill Encounter Details Date Type Department Care Team ([facility] st Contact Info) Description 11/02/2023 Refill [facility] CHC MED & PEDS [address] [place] [address] Ganesh Alvarado MD [address] [place] [address] Social History Tobacco Use Types Packs/Day Years [...]
--- OUTSIDE RECORDS SUMMARY | 2025-06-16 10:51 | XMS_ITS | Encounter Summary ---
Author Organization [employer] Address [address] [place] [address] 7 [place] [address] Care Team Providers Care Special Effects Artist Name Role Phone Unavailable Primary Care Provider Unavailabl e Reason for Visit * Reason Comments Med Refill Encounter Details Date Type Department Care Team ([facility] st Contact Info) Description 10/08/2024 Refill [facility] CHC MED & PEDS [address] [place] [address] Ganesh Alvarado MD [address] [place] [address] Social History Tobacco Use Types Packs/Day Years [...]
--- OUTSIDE RECORDS SUMMARY | 2025-06-16 10:51 | XMS_ITS | Encounter Summary ---
Author Organization [employer] Address [address] [place] [address] 7 [place] [address] Care Team Providers Care Eyeglass Maker Name Role Phone Unavailable Primary Care Provider Unavailabl e Reason for Visit * Reason Comments Med Refill Encounter Details Date Type Department Care Team ([facility] st Contact Info) Description 06/04/2024 Refill [facility] CHC MED & PEDS [address] [place] [address] Ganesh Alvarado MD [address] [place] [address] Social History Tobacco Use Types Packs/Day Years [...]
--- OUTSIDE RECORDS SUMMARY | 2025-06-16 10:51 | XMS_ITS | Encounter Summary ---
Author Organization [employer] Address [address] [place] [address] 7 [place] [address] Care Team Providers Care Slot Shift Supervisor Name Role Phone Unavailable Primary Care Provider Unavailabl e Reason for Visit * Reason Comments Med Refill Encounter Details Date Type Department Care Team ([facility] st Contact Info) Description 04/10/2024 Refill [facility] CHC MED & PEDS [address] [place] [address] Ganesh Alvarado MD [address] [place] [address] Social History Tobacco Use Types Packs/Day Years [...]
--- NOTE | 2025-06-16 11:22 | ED.FALL ---
HPI - Fall General Chief Complaint: Fall Stated Complaint: Knee cap deformity & swelling 04/10 pain Time Seen by Provider: 06/16/25 10:10 Source: patient, EMS and processes chemical design engineer (lebanese) Mode of arrival: EMS Limitations: language barrier (lebanese) History of Present Illness ED Provider: RENEE PINEDA PA-C HPI Narrative: 70 year old female with pmhx significant for AFib on Eliquis (noncompliant), insulin-dependent diabetes with diabetic retinopathy, cardiomyopathy, hypothyroid, chronic anemia and hypertension presents to the ED today for evaluation of right knee pain s/p fall yesterday. Reports slipping down three steps at home yesterday, falling forward onto her right knee. Denies head strike or LOC. She is anticoagulated on Eliquis. Admits to pain/swelling to right knee since the fall. Reports pain with any movement of the right knee. She has been able to ambulate with pain, assisted by walker at home. She currently lives with her daughter and has a RESERVOIR ENGINEERING CONSULTANT come to the home. Patient noted to be hypertensive in triage - she is compliant with her lisinopril daily. She was unable to take any of her home meds today prior to coming to the ED. Related Data Home Medications ?Medication ?Instructions ?Recorded ?Confirmed apixaban 5 mg tablet (Eliquis) 5 mg PO BID 10/01/24 06/05/25 insulin degludec 100 unit/mL (3 12 unit subcut DAILY 03/31/25 06/05/25 mL) subcutaneous pen (Tresiba FlexTouch U-100 insulin) insulin lispro 100 unit/mL 0 sliding scale dose subcut TID 03/31/25 06/05/25 subcutaneous pen (Humalog KwikPen (U-100) Insulin) lisinopril 10 mg tablet 5 mg PO DAILY 05/19/25 06/05/25 diltiazem HCl 120 mg 120 mg PO DAILY 05/20/25 06/05/25 capsule,extended release 24 hr Previous Rx's ?Medication ?Instructions ?Recorded lancets 33 gauge (OneTouch Delica #100 ea 01/22/23 Plus Lancet) blood pressure test kit-large #1 ea 04/23/23 blood-glucose meter (Café CanusaTouch #1 ea 11/19/23 Ultra2 Meter) air conditioner #1 ea 01/13/24 incontinence pad, liner, disp #120 ea 01/13/24 lancets 28 gauge (FreeStyle #100 ea 03/12/24 Lancets) balance #1 ea 04/14/24 cholecalciferol (vitamin D3) 50 50 mcg PO DAILY #28 caps 06/23/24 mcg (2,000 unit) capsule (Vitamin D3) nebulizers #1 ea 07/02/24 Grab bar #1 ea 09/02/24 blood-glucose,asphalt paving superintendent,cont #1 ea 11/28/24 (Dexcom G7 Blogs Manager) glucose 4 gram chewable tablet 16 g (4 x 4 gram) PO Q15M PRN 11/28/24 (Dex4 Glucose) hypoglycemia (hipoglucemia) #10 tabs Dexcom G7 Sensor (blood-glucose #3 ea 01/13/25 sensor) incontinence pad, liner, disp #264 ea 02/06/25 latex gloves (Latex Gloves, Large) #240 ea 02/06/25 underpads (Bed Underpads) #300 ea 02/06/25 wipes flushable #240 ea 02/06/25 blood sugar diagnostic (OneTouch #100 ea 02/27/25 Ultra Test strips) rosuvastatin 40 mg tablet 40 mg PO DAILY 90 days #90 tabs 04/13/25 Ventolin HFA 90 mcg/actuation 2 puff inhalation Q6H PRN 04/14/25 aerosol inhaler (albuterol sulfate) shortness of breath or wheezing 30 days #8 grams levothyroxine 137 mcg tablet 137 mcg PO DAILY@0600 #30 tabs 04/14/25 tirzepatide 10 mg/0.5 mL 10 mg (0.5 mL) subcut QWEEK #2 mL 04/27/25 subcutaneous pen injector (Maeve) aspirin 81 mg tablet,delayed 81 mg PO DAILY 30 days #30 tabs 05/23/25 release digoxin 125 mcg (0.125 mg) tablet 0.125 mg PO DAILY 30 days #30 tabs 05/23/25 metoprolol tartrate 50 mg tablet 50 mg PO BID 30 days #60 tabs 05/23/25 oxycodone 5 mg tablet 5 mg PO Q8H PRN pain (scale score 06/16/25 7-10) #9 tabs Allergies Allergy/AdvReac Type Severity Reaction Status Date / Time empagliflozin (From Allergy Intermediate ITCHY/RASH Verified 06/16/25 09:03 JARDIANCE) dulaglutide (From Trulicity) AdvReac Intermediate Abdominal Verified 06/16/25 09:03 Pain JARDIANCE Allergy Intermediate pruritus Uncoded 06/05/25 10:28 Review of Systems Review of Systems: Yes all other systems are reviewed and are negative PMFSH Past Medical History Attestation statement: The following information was validated with the patient. 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 Mother Arthritis Social History Social History Household Members: Family and Children Household Members Other:: 2 Housing: Apartment Do you presently have visiting nurse or other home services: Yes ([facility]) Alcohol intake: never Patient Tobacco Use Status: Never used Tobacco e-Cigarette/Vaping Use: Never Used Second Hand Smoke Exposure: No Advance Directives: No Advance Directives Information Provided: Yes service: No Current occupational status: disabled Cognitive needs: No Hearing needs: No Vision needs: No Physical Exam Vital Signs: Vital Signs: Last Vital Signs Temp 97.4 F 06/16/25 16:46 Pulse 49 L 06/16/25 16:46 Resp 16 06/16/25 16:46 BP 149/55 H 06/16/25 16:46 Pulse Ox 96 06/16/25 16:46 O2 Del Method Room Air 06/16/25 16:46 BMI result Body Mass Index 33.0 hypertensive, vitals are otherwise wnl General: Well appearing, in no acute distress. Skin: Warm, dry, intact. No rashes or lesions. Head: Normocephalic, atraumatic. EENT: Hearing is intact b/l. Conjunctiva clear. Sclera is anicteric. PERRLA. EOM intact. Moist mucous membranes.? Neck: no midline c spine tenderness or step off? Cardiac: Chest wall symmetric. RRR Lungs: Normal respiratory effort without accessory muscle use. CTA bilaterally Back: No midline spinous or paraspinal tenderness. No step off deformity. Ext: +right knee w minimal overlying swelling. no deformity. no overlying skin color changes, no wounds. able to actively lift RLE off of stretcher. can flex/extend right knee w/ reported pain. diffuse tenderness to palpation of anterior aspect of right knee, no crepitus, fluctuance. no high riding patella. no tednerness noted to right hip, thigh, lower leg, ankle or foot. 2+ dp pulse intact. Neuro: AOx3. Normal speech. Course Course Course Narrative: cbc without leukocytosis or left shift. chronic anemia, h&h appaers to be around baseline and stable when compare to priors. chemistry without acute electrolyte abnormality requiring intervention. no polly. random glucose 201 - no anion gap. 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 no interval change. no intracranial bleed. ct cervical spine without fracture. xr right knee Showing moderate tricompartmental osteoarthritis and small suprapatellar joint fluid. No evidence of fracture. xr right ankle unremarkable. Discussed work up results with patient. Concern for ligament/tendon injury. Patient will require a knee immobilzier with outpatient ortho follow up. She uses a walker at baseline. I fear she will have difficulty using crutches. Used shared decision making to determine patient would benefit from PT/CM consults. Physical therapy evaluated patient - patient was noted to successfully ambulate using a rolling walker while wearing her knee immobilizer. PT recommending discharge home with services (resumption of RESERVOIR ENGINEERING CONSULTANT assist for all self care and use of RW). Case management involved. Patient agreeable with discharge home. Stable for discharge home at this time. Will prescribe oxycodone for break through pain - take home narcan provided. She has both her daughter and RESERVOIR ENGINEERING CONSULTANT at home to care for her/ assist her. Advised ortho outpatient follow up - referral provided. Patient has remained stable throughout ED visit today. Discussed worrisome signs and symptoms and when to return to the ED. All questions answered at this time. Patient is agreeable with disposition and stable for discharge. Patient will be transfered home via EMS. Medications Administered Generic Name Dose Route Start Last Admin Trade Name Freq PRN Reason Stop Dose Admin Acetaminophen 650 mg 06/16/25 11:21 06/16/25 13:51 Acetaminophen 325 Mg Tablet PO 650 mg QID PRN Administration Pain, Moderate(Pain Scale 4-6) Discontinued Medications Generic Name Dose Route Start Last Admin Trade Name Freq PRN Reason Stop Dose Admin Lisinopril 5 mg 06/16/25 11:22 06/16/25 11:49 Lisinopril 5 Mg Tablet PO 06/16/25 11:23 5 mg ONCE ONE Administration Protocol Oxycodone HCl 5 mg 06/16/25 11:20 06/16/25 11:51 Oxycodone Hcl Immed Release 5 Mg Tablet PO 06/16/25 11:21 5 mg ONCE ONE Administration Medical Decision Making Medical Decision Making [facility] Narrative: 70 year old female with pmhx significant for AFib on Eliquis (noncompliant), insulin-dependent diabetes with diabetic retinopathy, cardiomyopathy, hypothyroid, chronic anemia and hypertension presents to the ED today for evaluation of right knee pain s/p fall yesterday. patient is hypertensive and bradycardic, vitals are otherwise wnl. she is well appearing, in NAD. on exam, right knee w minimal overlying swelling. no deformity. no overlying skin color changes, no wounds. able to actively lift RLE off of stretcher. can flex/extend right knee w/ reported pain. diffuse tenderness to palpation of anterior aspect of right knee, no crepitus, fluctuance. no high riding patella. no tednerness noted to right hip, thigh, lower leg, ankle or foot. 2+ dp pulse intact. Differential diagnosis includes contusion, fracture, dislocation, msk sprain/strain, arhtirits Unlikely gout, pseudogout, septic joint, septic arthritis, hemearthrosis Plan for imaging, pain control and re-evaluation. Differential Diagnosis Differential Diagnoses: The differential diagnosis associated with the presentation includes as above. Admission/Observation not indicated. Lab Data [facility] Lab Attestation statement: I reviewed the patient's lab results. as above. 06/16/25 12:19 06/16/25 12:19 Labs: Lab Results 06/16/25 Range/Units 12:19 WBC 7.7 (4.8-10.8) X10*3/uL RBC 6.04 H (4.20-5.50) X10*6/uL Hgb 10.9 L (12.0-16.0) g/dl Hct 38.0 (37.0-47.0) % MCV 62.9 L (80.0-98.0) fL MCH 18.0 L (27.0-33.0) pg MCHC 28.7 L (31.0-35.0) g/dl RDW 15.6 (11.0-16.0) % Plt Count 286 D (160-400) X10*3/uL MPV TNP Immature Gran % (Auto) 0.4 (0.0-0.4) % Neut % (Auto) 65.4 (45-73) % Lymph % (Auto) 27.8 (20-40) % [place] % (Auto) 5.1 (2-11) % Eos % (Auto) 0.5 (0-4) % Baso % (Auto) 0.8 (0-2) % Lymph # (Auto) 2.1 (1.2-4.9) X10*3/uL [place] # (Auto) 0.4 (0.1-1.2) X10*3/uL Eos # (Auto) 0.0 (0.0-0.4) X10*3/uL Baso # (Auto) 0.1 (0.0-0.2) X10*3/uL Abs Immat Gran (auto) 0.03 (0.00-0.03) X10*3/uL Absolute Neuts (auto) 5.1 (2.0-8.3) x10*3/uL Absolute Nucleated RBC 0.000 (0.0-0.012) X10*3/uL Nucleated RBC % (auto) 0.0 (0.0-0.2) /100WBC Smear Tech's Comments VERIFIED Sodium 143 (135-145) mmol/L Potassium 4.5 (3.3-5.1) mmol/L Chloride 105 (96-108) mmol/L Carbon Dioxide 31 H (22-29) mmol/L Anion Gap 12 (12-20) BUN 8 L (9-16) mg/dL Creatinine 0.79 (0.5-1.4) mg/dL Estim Creat Clear Calc 64.9 Estimated GFR > 60 Random Glucose 201 H (60-115) mg/dL Calcium 9.3 (8.4-10.2) mg/dL Independent Interpretation I performed an independent interpretation of an: EKG, Plain X-Ray and CT Scan Interpretation: xr right knee without fracture xr right ankle without fracture CT head without bleed CT cervical spine without fracture Radiology Impression Discussion of test interpretation with radiology: I have reviewed the radiologist's reading. Radiologist Impression: Procedure(s): CT head/brain wo IV con Accession Number(s): [id number] cc: Renee Pineda; Jo Luna MD~ Report Number: [id number]: Total DLP = 632.00 mGy-cm Reason for Exam: fall on thinner EXAMINATION: CT HEAD WITHOUT CONTRAST CLINICAL INFORMATION: Fall, anticoagulated COMPARISON: 05/22/2025 TECHNIQUE: Contiguous axial imaging was performed from the skull base to vertex without intravenous administration of contrast. This CT examination was performed using dose optimization techniques as appropriate, variously including the following: *Automated exposure control *Adjustment of mA and/or kV according to patient size (this includes techniques or standardized protocols for targeted exams where dose is matched to indication/reason for exam; i.e. extremities or head) *Use of iterative reconstruction technique FINDINGS: There is no acute ischemic change. There is focal encephalomalacia in the anterior left parietal and far medial right occipital lobe demonstrating normal position the since the prior CT. Periventricular and subcortical white matter hypodensities are noted which are nonspecific, but often seen in the setting of small vessel ischemic disease. There is no intracranial hemorrhage. There is no mass-effect or midline shift. Basal cisterns and ventricles are within normal limits for age/cerebral volume. Orbits are symmetrical and unremarkable aside from changes related to cataract surgery. Paranasal sinuses and mastoid air cells are pneumatized. There are no bony abnormalities. CT/CT head/brain wo IV con IMPRESSION: No acute intracranial abnormality. Chronic ischemic changes, as noted above. Electronically signed by: Walt Guy MD 06/16/2025 11:00 AM EST RP Procedure(s): CT cervical spine wo IV con Accession Number(s): [id number] cc: Renee Pineda; Jo Luna MD~ Report Number: [id number]: Total DLP = 366.00 mGy-cm Reason for Exam: fall EXAMINATION: CT CERVICAL SPINE WITHOUT CONTRAST CLINICAL INFORMATION: Fall COMPARISON: X-ray September 17, 2018 TECHNIQUE: Axial imaging was performed from the base of the skull through T2 without IV contrast. Coronal and sagittal reformatted images were generated from the original axial data set. ALARA: The examination used one or more of the following radiation dose reduction techniques: Automated exposure control, iterative reconstruction, and/or adjustment of mA and/or KV. FINDINGS: There is mild reversal cervical lordosis. There are multilevel degenerative changes with mild to moderate disc space narrowing and endplate osteophytes most pronounced at C3-4 and C5-6. There is subtle retrolisthesis at C5-6 and anterolisthesis at C7-T1. There is also facet sclerosis and osteophytes most pronounced on the left at C2-3 and C6-7. No acute fracture line is identified. Lung apexes are unremarkable. Soft tissues are unremarkable. There is no prevertebral soft tissue edema. CT/CT cervical spine wo IV con IMPRESSION: IMPRESSION: No acute bony abnormality. There is mild reversal of cervical lordosis. This can be related to degenerative changes, positioning, muscle spasm, or posterior soft tissue injury. Degenerative changes are most at C5-6, followed by C3-4. Electronically signed by: Walt Guy MD 06/16/2025 10:56 AM EST RP Procedure(s): XR knee RT 4V Accession Number(s): [id number] cc: Generic ED Physician; Jo Luna MD~ Reason for Exam: Fall, Right knee pain EXAMINATION: XR KNEE, RIGHT CLINICAL INFORMATION: Fall, Right knee pain COMPARISON: X-ray 01/09/2025 TECHNIQUE: Four views of the right knee. FINDINGS: Moderate tricompartment osteoarthritis, joint space loss, marginal osteophytes. No acute fracture, dislocation or suspicious bony lesion. Small suprapatellar joint fluid. XR/XR knee RT 4V IMPRESSION: Moderate tricompartment osteoarthritis. No radiographic evidence of acute fracture. Electronically signed by: Kayode Michael MD 06/16/2025 09:41 AM EST RP Procedure(s): XR ankle RT min 3V Accession Number(s): [id number] cc: Generic ED Physician; Jo Luna MD~ Reason for Exam: Fall, Right knee pain EXAMINATION: XR ANKLE, right CLINICAL INFORMATION: Fall, Right ankle pain COMPARISON: None available. TECHNIQUE: AP, lateral, and mortise views lower extremity joint, ankle. FINDINGS: Ankle mortise is congruent. There is no widening of the syndesmosis. Talar dome is intact. There is a moderate size plantar calcaneal enthesophyte(s). There are marginal osteophytes dorsal midfoot. XR/XR ankle RT min 3V IMPRESSION: No acute bony abnormality. Mild degenerative changes are present in the midfoot. There is a calcaneal spur, a nonspecific finding. Electronically signed by: Walt Guy MD 06/16/2025 09:45 AM EST RP Independent Historian Clinical information obtained from an independent historian. History obtained from or confirmed by: EMS and Other (daughter) External Record Review External record reviewed: Inpatient record Prescription Management I considered prescription management with: Pain Medication Chronic Conditions Patient?s care impacted by: Hypertension Social Determinants Patient?s care significantly limited by Social Determinants of Health including: Other Social Determinant of Health Critical Care Time Critical Care Time Critical Care Time: No Discharge Plan Discharge Clinical Impression: Right knee sprain Patient Disposition: Home, Self-Care Instructions: Knee Sprain (ED) Additional Instructions: You were evaluated in the ED today for your right knee pain. Your xrays do not demonstrate any fracture. I have concern for a ligament/tendon injury in your knee. You have been placed in a knee immobilizer. You were evaluated by physical therapy and are able to ambulate using your walker. They are recommending that you be discharged home with services, resumption of RESERVOIR ENGINEERING CONSULTANT assist for all self-care and use of rolling walker. Please wear the knee immobilizer brace for 24 to 48 hours. Allow your knee to rest. after 48 hours you can work on gentle range of motion testing of the knee but stop when you have pain. use walker as needed but can bear weight on your toes. Please follow up with the informatics specialist - I have provided you with a referral. Call them to establish care, they will not call you. I recommend tylenol at home as needed for pain. I am sending oxycodone, a controlled pain medication, to your pharmacy for you to take for breakthrough pain control. Please use this with caution as opioid pain medications have addictive properties. I have also provided you with Narcan as accidental overdoses on oxycodone can occur. Opioid pain medications can often cause constipation. I recommend taking this with an over the counter laxative and/or stool softener to help move your bowels. Return with any new or worsening symptoms. In the case of an emergency call 911. Prescriptions: New oxycodone 5 mg tablet 5 mg PO Q8H PRN (Reason: pain (scale score 7-10)) Qty: 9 0RF Rx Instructions: Partial Fill upon patient request. No Action (DME) lancets [OneTouch Delica Plus Lancet] [facility] See Rx Instructions .ROUTE .COMPLEX Qty: 100 0RF Dose Instruction: USE TO TEST BLOOD SUGAR FOUR TIMES DAILY Rx Instructions: USE TO TEST BLOOD SUGAR FOUR TIMES DAILY (DME) blood pressure test kit-large Kit See Rx Instructions .Route Qty: 1 0RF Rx Instructions: As directed (DME) blood-glucose meter [OneTouch Ultra2 Meter] [facility] [place] See Rx Instructions .Route Qty: 1 0RF Rx Instructions: As directed test 4 times a day (DME) air conditioner See Rx Instructions .Route .MEDSUPPLY Qty: 1 0RF Rx Instructions: As directed (DME) incontinence pad, liner, disp Pad See Rx Instructions .Route Qty: 120 11RF Rx Instructions: Use 1 pad every 6 hours as needed (DME) lancets [FreeStyle Lancets] [facility] See Rx Instructions .Route Qty: 100 4RF Rx Instructions: As directed test 4X a day cholecalciferol (vitamin D3) [Vitamin D3] 50 mcg (2,000 unit) capsule 50 mcg PO DAILY Qty: 28 3RF (DME) nebulizers Mis See Rx Instructions .Route Qty: 1 0RF Rx Instructions: As directed (DME) Grab bar Misc See Rx Instructions .Route Qty: 1 0RF Rx Instructions: As directed (DME) Dexcom G7 Sensor Device See Rx Instructions .Route Qty: 3 11RF Rx Instructions: As directed change every 10 days (DME) wipes flushable See Rx Instructions .Route .MEDSUPPLY Qty: 240 11RF Rx Instructions: As directed (DME) underpads [Bed Underpads] Pad See Rx Instructions .Route Qty: 300 11RF Rx Instructions: As directed (DME) latex gloves [Latex Gloves, Large] Misc See Rx Instructions .Route Qty: 240 11RF Rx Instructions: As directed (DME) incontinence pad, liner, disp Pad See Rx Instructions .Route Qty: 264 11RF Rx Instructions: As directed (DME) OneTouch Ultra Test Strip See Rx Instructions .ROUTE .COMPLEX Qty: 100 4RF Dose Instruction: USE TO TEST BLOOD SUGAR FOUR TIMES PER DAY Rx Instructions: USE TO TEST BLOOD SUGAR FOUR TIMES PER DAY rosuvastatin 40 mg tablet 40 mg PO DAILY 90 Days Qty: 90 2RF Mounjaro 10 mg/0.5 mL pen injector 10 mg subcut QWEEK Qty: 2 3RF Eliquis 5 mg tablet 5 mg PO BID lisinopril 10 mg tablet 5 mg PO DAILY diltiazem HCl 120 mg capsule,extended release 24hr 120 mg PO DAILY aspirin 81 mg Tablet,Delayed Release (Dr/Ec) 81 mg PO DAILY 30 Days Qty: 30 3RF metoprolol tartrate 50 mg Tablet 50 mg PO BID 30 Days Qty: 60 2RF Protocol: Hold for SBP/HR < HOLD for SBP < : 90 HOLD for HR < : 60 digoxin 125 mcg (0.125 mg) Tablet 0.125 mg PO DAILY 30 Days Qty: 30 2RF Protocol: Hold for HR <: HOLD for HR < : 60 (DME) balance See Rx Instructions .Route .MEDSUPPLY Qty: 1 0RF Rx Instructions: As directed levothyroxine 137 mcg tablet 137 mcg PO DAILY@0600 Qty: 30 10RF insulin degludec [Tresiba FlexTouch U-100] 100 unit/mL (3 mL) insulin pen 12 unit subcut DAILY insulin lispro [Humalog KwikPen Insulin] 100 unit/mL insulin pen 0 sliding scale dose subcut TID Protocol: Insulin Correction Scale Less than or equal to 110 ---- Give (units): 0 111 to 150 Give (units): 0 151 to 200 Give (units): 2 201 to 250 Give (units): 4 251 to 300 Give (units): 6 301 to 350 Give (units): 8 Greater than 350 Give (units): 10 Call MD if Blood Glucose > : 350 (DME) Dexcom G7 Blogs Manager Misc See Rx Instructions .Route Qty: 1 0RF Rx Instructions: As directed glucose [Dex4 Glucose] 4 gram tablet,chewable 16 g PO Q15M PRN (Reason: hypoglycemia (hipoglucemia)) Qty: 10 3RF Rx Instructions: until blood sugar is >70 (hasta que el nivel de azucar en yosef sea superior a 70) albuterol sulfate [Ventolin HFA] 90 mcg/actuation HFA aerosol inhaler 2 puff inhalation Q6H PRN (Reason: shortness of breath or wheezing) 30 Days Qty: 8 1RF [place] [facility] [place] [facility] [place]Provider Group] Jo Luna MD [Primary Care Provider, Internal Medicine] Print Language: Greek
[2025-06-16 11:49] VITALS: BP 153/47
[2025-06-16] MEDS: oxyCODONE HCl Immed Release 5 MG TABLET PO (11:51)
[2025-06-16 11:55] VITALS: PULSE 46; RESP 16; O2SAT 99
--- NOTE | 2025-06-16 12:00 | ECG_ITS ---
Test Reason : FALL Blood Pressure : */* mmHG Vent. Rate : 49 BPM Atrial Rate : 49 BPM P-R Int : 178 ms QRS Dur : 128 ms QT Int : 472 ms P-R-T Axes : 38 -57 -31 degrees QTcB Int : 426 ms Sinus bradycardia with occasional Premature ventricular complexes Right bundle branch block Left anterior fascicular block Bifascicular block Abnormal ECG When compared with ECG of 21-May-2025 12:42, Sinus rhythm has replaced Wide QRS tachycardia Vent. rate has decreased by 79 bpm Referred By: Renee Pineda Electronically Signed By: Darrick Navarro
[2025-06-16 12:36] LABS: Hematocrit 38.0 % (37.0-47.0); Hemoglobin 10.9 g/dl (12.0-16.0); Imm Gran Abs Auto 0.03 X10*3/uL (0.00-0.03); Imm Gran Pct Auto 0.4 % (0.0-0.4); Lymphocytes Absolute Auto 2.1 X10*3/uL (1.2-4.9); MANUAL DIFF FLAG SCAN; Mean Corpuscular HGB Conc 28.7 g/dl (31.0-35.0); Mean Corpuscular Hemoglobin 18.0 pg (27.0-33.0); NRBC Abs Auto 0.000 X10*3/uL (0.0-0.012); NRBC Pct Auto 0.0 /100WBC (0.0-0.2); PLT CLUMP 1; Red Blood Count 6.04 X10*6/uL (4.20-5.50); SCAN SMEAR FLAG 1
[2025-06-16 12:37] LABS: Mean Corpuscular Volume 62.9 fL (80.0-98.0)
[2025-06-16 12:44] LABS: Anion Gap 12 (12-20); Blood Urea Nitrogen 8 mg/dL (9-16); Calcium 9.3 mg/dL (8.4-10.2); Carbon Dioxide 31 mmol/L (22-29); Chloride 105 mmol/L (96-108); Creatinine Clr Calc Pharmacy 64.9; Estimated Glomerular Filt Rate > 60; Potassium 4.5 mmol/L (3.3-5.1); Sodium 143 mmol/L (135-145)
[2025-06-16 12:58] LABS: Platelet Count 286 X10*3/uL (160-400); White Blood Count 7.7 X10*3/uL (4.8-10.8)
[2025-06-16 16:46] VITALS: BP 149/55; PULSE 49; RESP 16; TEMP 36.3; O2SAT 96
[2025-06-16] MEDS: Naloxone HCl Nasal TAKE HOME 4 MG SPRAY 8 MG NOSTRILALT (17:50)
== END 2025-06-16 20:12 | disposition home or self-care (01) ==
PROVIDERS: Physician Assistant Medical; Emergency Provider Emergency Medicine Emergency Medical Services; PCP Internal Medicine
DX: S83.91XA Sprain of unspecified site of right knee, initial encounter (principal); I10 Essential (primary) hypertension; R00.1 Bradycardia, unspecified; E11.319 Type 2 diabetes mellitus with unspecified diabetic retinopathy without macular edema; D64.9 Anemia, unspecified; M25.561 Pain in right knee; R26.81 Unsteadiness on feet; W10.8XXA Fall (on) (from) other stairs and steps, initial encounter; Y93.89 Activity, other specified; Y92.098 Other place in other non-institutional residence as the place of occurrence of the external cause; Y99.8 Other external cause status; Z79.4 Long term (current) use of insulin; Z79.01 Long term (current) use of anticoagulants; Z91.148 Patient's other noncompliance with medication regimen for other reason; Z79.899 Other long term (current) drug therapy
CPT/HCPCS: 36415; 70450; 72125; 73564; 73610; 80048; 85025; 93005; 97162; 99284; 99285

== ENCOUNTER → 2025-06-16 09:25 | Outpatient (BNV) | payer OTHER, SELFPAY | PROVIDERS: PCP Internal Medicine; Visit Provider Radiology Diagnostic Radiology | DX: M50.322 Other cervical disc degeneration at C5-C6 level (principal); I67.82 Cerebral ischemia; M25.561 Pain in right knee; M17.11 Unilateral primary osteoarthritis, right knee; M25.571 Pain in right ankle and joints of right foot; M19.071 Primary osteoarthritis, right ankle and foot; Z04.3 Encounter for examination and observation following other accident | CPT/HCPCS: 70450; 72125; 73564; 73610 ==

== ENCOUNTER → 2025-06-16 12:00 | Outpatient (BNV) | payer OTHER, SELFPAY | PROVIDERS: Emergency Provider Emergency Medicine Emergency Medical Services; PCP Internal Medicine; Visit Provider Internal Medicine Cardiovascular Disease | DX: I49.3 Ventricular premature depolarization (principal); I45.2 Bifascicular block; R00.1 Bradycardia, unspecified | CPT/HCPCS: 93010 ==

== ENCOUNTER 2025-06-18 08:28 | Outpatient (REF) | payer OTHER, SELFPAY ==
--- NOTE | ~2025-06-18 | XR_ITS ---
EXAMINATION: XR KNEE 1-2 VIEWS RIGHT HISTORY: M25.569 - Pain in unspecified knee COMPARISON: Comparison is made with the prior examination dated 06/16/2025. FINDINGS: Standing AP views of both knees and an additional sunrise patellar view of the right knee are submitted. Osseous mineralization is normal. There is no fracture or dislocation. There is moderate tricompartmental osteoarthritis with joint space narrowing and osteophyte formation. There is severe osteoarthritis of the medial compartment of the left knee. The soft tissues are unremarkable. XR/XR knee RT 2V IMPRESSION: Moderate tricompartmental osteoarthritis. Electronically signed by: Kofi Ohara MD 06/18/2025 11:40 AM EST
--- OUTSIDE RECORDS SUMMARY | 2025-06-18 08:47 | XMS_ITS | Encounter Summary ---
Author Organization [employer] [facility] Address [address] [place] [address] 7 [place] [address] Care Team Providers Care Location Man Name Role Phone Ganesh Alvarado MD Primary Care Provider [phone] Reason for Visit * Reason Comments Med Refill Encounter Details Date Type Department Care Team (Late st Contact Info) Description 08/06/2023 Refill [facility] MEDICINE [address] [place] [address] Ganesh Alvarado MD [address] [place], [place] [id number] Social History Tobacco Use Types Packs/Day Years [...] on filedocumented in this encounter Care Teams Location Man Relationship Specialty Start Date End Date Ganesh Alvarado MD [address] [place] [address] PCP - General Internal Medicine 12/21/17 09/05/23 documented as of this encounter
--- OUTSIDE RECORDS SUMMARY | 2025-06-18 08:47 | XMS_ITS | Encounter Summary ---
Author Organization [employer] Address [address] [place] [address] 7 [place] [address] Care Team Providers Care Environmental Professional Name Role Phone Unavailable Primary Care Provider Unavailabl e Reason for Visit * Reason Comments Med Refill Encounter Details Date Type Department Care Team ([facility] st Contact Info) Description 07/01/2024 Refill [facility] CHC MED & PEDS [address] [place] [address] Ganesh Alvarado MD [address] [place] [address] Social History Tobacco Use Types Packs/Day Years [...]
--- OUTSIDE RECORDS SUMMARY | 2025-06-18 08:47 | XMS_ITS | Encounter Summary ---
Author Organization [employer] Address [address] [place] [address] 7 [place] [address] Care Team Providers Care Drama Teacher Name Role Phone Unavailable Primary Care Provider Unavailabl e Reason for Visit * Reason Comments Med Refill Encounter Details Date Type Department Care Team ([facility] st Contact Info) Description 10/18/2023 Refill [facility] MEDICINE [address] [place] [address] Ganesh Alvarado MD [address] [place] [address] Social History Tobacco Use Types Packs/Day Years [...]
--- OUTSIDE RECORDS SUMMARY | 2025-06-18 08:47 | XMS_ITS | Encounter Summary ---
Author Organization [employer] Address [address] [place] [address] 7 [place] [address] Care Team Providers Care Etcher Enameling Name Role Phone Unavailable Primary Care Provider Unavailabl e Reason for Visit * Reason Comments Med Refill Encounter Details Date Type Department Care Team ([facility] st Contact Info) Description 11/06/[address] [facility] CHC MED & PEDS [address] [place] [address] Ganesh Alvarado MD [address] [place] [address] Social History Tobacco Use Types Packs/Day Years [...]
--- OUTSIDE RECORDS SUMMARY | 2025-06-18 08:47 | XMS_ITS | Encounter Summary ---
Author Organization [employer] Address [address] [place] [address] 7 [place] [address] Care Team Providers Care Police Aide Name Role Phone Unavailable Primary Care Provider Unavailabl e Reason for Visit * Reason Comments Med Refill Encounter Details Date Type Department Care Team ([facility] st Contact Info) Description 11/26/2024 Refill [facility] CHC MED & PEDS [address] [place] [address] Ganesh Alvarado MD [address] [place] [address] Social History Tobacco Use Types Packs/Day Years [...]
--- OUTSIDE RECORDS SUMMARY | 2025-06-18 08:47 | XMS_ITS | Clinical Summary ---
Author Organization [employer] Address [address] [place] [address] 7t [place] [address] Care Team Providers Care Medical Research Assistant Name Role Phone Unavailable Primary Care [...] 239 mg/dL HDL Cholesterol 41 mg/dL [facility] Comment: Desirable HDL: greater [...] >60 [facility] Comment: NOTE: For -[place] individuals, multiply the result by 1.210. Chronic [...] ORDERABLE LABS Final Result Performing Organization Address City/State/[facility] Co de Phone Number [facility] [address] [place] [address] * Mammography Report 1 (05/04/2020 9:06 AM [...] Recently Relevant to Health Maintenance Insurance [place] [address] [place] [id number]
--- OUTSIDE RECORDS SUMMARY | 2025-06-18 08:47 | XMS_ITS | Encounter Summary ---
Author Organization [employer] Address [address] [place] [address] 7 [place] [address] Care Team Providers Care Audio Video Mechanic Name Role Phone Unavailable Primary Care Provider Unavailabl e Reason for Visit * Reason Comments Med Refill Encounter Details Date Type Department Care Team ([facility] st Contact Info) Description 08/26/[address] [facility] CHC MED & PEDS [address] [place] [address] Ganesh Alvarado MD [address] [place] [address] Social History Tobacco Use Types Packs/Day Years [...]
--- OUTSIDE RECORDS SUMMARY | 2025-06-18 08:47 | XMS_ITS | Encounter Summary ---
Author Organization [employer] Address [address] [place] [address] 7 [place] [address] Care Team Providers Care Envelope Maker Name Role Phone Unavailable Primary Care Provider Unavailabl e Reason for Visit * Reason Comments Med Refill Encounter Details Date Type Department Care Team ([facility] st Contact Info) Description 11/02/2023 Refill [facility] CHC MED & PEDS [address] [place] [address] Ganesh Alvarado MD [address] [place] [address] Social History Tobacco Use Types Packs/Day Years [...]
--- OUTSIDE RECORDS SUMMARY | 2025-06-18 08:47 | XMS_ITS | Encounter Summary ---
Author Organization [employer] Address [address] [place] [address] 7 [place] [address] Care Team Providers Care Architectural Designer Name Role Phone Unavailable Primary Care Provider Unavailabl e Reason for Visit * Reason Comments Med Refill Encounter Details Date Type Department Care Team ([facility] st Contact Info) Description 06/04/2024 Refill [facility] CHC MED & PEDS [address] [place] [address] Ganesh Alvarado MD [address] [place] [address] Social History Tobacco Use Types Packs/Day Years [...]
--- OUTSIDE RECORDS SUMMARY | 2025-06-18 08:47 | XMS_ITS | Encounter Summary ---
Author Organization [employer] Address [address] [place] [address] 7 [place] [address] Care Team Providers Care It Program Manager Name Role Phone Unavailable Primary Care Provider Unavailabl e Reason for Visit * Reason Comments Med Refill Encounter Details Date Type Department Care Team ([facility] st Contact Info) Description 04/09/2024 Refill [facility] CHC MED & PEDS [address] [place] [address] Ganesh Alvarado MD [address] [place] [address] Social History Tobacco Use Types Packs/Day Years [...]
--- OUTSIDE RECORDS SUMMARY | 2025-06-18 08:47 | XMS_ITS | Encounter Summary ---
Author Organization [employer] Address [address] [place] [address] 7 [place] [address] Care Team Providers Care Trichologist Name Role Phone Unavailable Primary Care Provider Unavailabl e Reason for Visit * Reason Comments Med Refill Encounter Details Date Type Department Care Team ([facility] st Contact Info) Description 01/17/2024 Refill [facility] CHC MED & PEDS [address] [place] [address] Ganesh Alvarado MD [address] [place] [address] Social History Tobacco Use Types Packs/Day Years [...]
--- OUTSIDE RECORDS SUMMARY | 2025-06-18 08:47 | XMS_ITS | Encounter Summary ---
Author Organization [employer] Address [address] [place] [address] 7 [place] [address] Care Team Providers Care Mat Packer Name Role Phone Unavailable Primary Care Provider Unavailabl e Reason for Visit * Reason Comments Med Refill Encounter Details Date Type Department Care Team ([facility] st Contact Info) Description 04/10/2024 Refill [facility] CHC MED & PEDS [address] [place] [address] Ganesh Alvarado MD [address] [place] [address] Social History Tobacco Use Types Packs/Day Years [...]
--- OUTSIDE RECORDS SUMMARY | 2025-06-18 08:47 | XMS_ITS | Encounter Summary ---
Author Organization [employer] Address [address] [place] [address] 7 [place] [address] Care Team Providers Care Lime Mixer Name Role Phone Unavailable Primary Care Provider Unavailabl e Reason for Visit * Reason Comments Med Refill Encounter Details Date Type Department Care Team ([facility] st Contact Info) Description 10/08/2024 Refill [facility] CHC MED & PEDS [address] [place] [address] Ganesh Alvarado MD [address] [place] [address] Social History Tobacco Use Types Packs/Day Years [...]
--- OUTSIDE RECORDS SUMMARY | 2025-06-18 08:47 | XMS_ITS | Encounter Summary ---
Author Organization [employer] Address [address] [place] [address] 7 [place] [address] Care Team Providers Care Dog Raiser Name Role Phone Unavailable Primary Care Provider Unavailabl e Reason for Visit * Reason Comments Med Refill Encounter Details Date Type Department Care Team ([facility] st Contact Info) Description 05/06/2024 Refill [facility] CHC MED & PEDS [address] [place] [address] Ganesh Alvarado MD [address] [place] [address] Social History Tobacco Use Types Packs/Day Years [...]
--- OUTSIDE RECORDS SUMMARY | 2025-06-18 08:48 | XMS_ITS | Encounter Summary ---
Author Organization [employer] Address [address] [place] [address] 7 [place] [address] Care Team Providers Care Business Office Technician Name Role Phone Ganesh Alvarado MD Primary Care Provider [phone] Encounter Details Date Type Department Care Team ([facility] st Contact Info) Description 11/24/2022 Abstract [facility] CHC MED & PEDS [address] [place] [address] Ganesh Alvarado MD [address] [place] [address] Social History Tobacco Use Types Packs/Day Years [...] on filedocumented in this encounter Care Teams Business Office Technician Relationship Specialty Start Date End Date Ganesh Alvarado MD [address] [place] [address] PCP - General Internal Medicine 12/21/17 09/05/23 documented as of this encounter
--- OUTSIDE RECORDS SUMMARY | 2025-06-18 08:48 | XMS_ITS | Encounter Summary ---
Author Organization [employer] Address [address] [place] [address] [address] [place] [address] Care Team Providers Care Machine Leather Trimmer Name Role Phone Ganesh Alvarado MD Primary Care Provider [phone] Reason for Visit * Reason Comments Med Refill Encounter Details Date Type Department Care Team ([facility] st Contact Info) Description 06/08/2023 Refill [facility] CHC MED & PEDS [address] [place] [address] Ganesh Alvarado MD [address] [place] [address] Social History Tobacco Use Types Packs/Day Years [...] on filedocumented in this encounter Care Teams Machine Leather Trimmer Relationship Specialty Start Date End Date Ganesh Alvarado MD [address] [place] [address] PCP - General Internal Medicine 12/21/17 09/05/23 documented as of this encounter
--- OUTSIDE RECORDS SUMMARY | 2025-06-18 08:48 | XMS_ITS | Encounter Summary ---
Author Organization [employer] Address [address] [place] [address] 7 [place] [address] Care Team Providers Care Track Laminating Machine Tender Name Role Phone Unavailable Primary Care Provider Unavailabl e Reason for Visit * Reason Comments Med Refill Encounter Details Date Type Department Care Team ([facility] st Contact Info) Description 07/29/2024 Refill [facility] CHC MED & PEDS [address] [place] [address] Ganesh Alvarado MD [address] [place] [address] Social History Tobacco Use Types Packs/Day Years [...]
== END 2025-06-18 08:29 | disposition home or self-care (01) ==
LOC: HO.HOSX 08:28
PROVIDERS: Visit Provider Physician Assistant
DX: S80.01XD Contusion of right knee, subsequent encounter (principal); W19.XXXD Unspecified fall, subsequent encounter; Z79.01 Long term (current) use of anticoagulants; Z79.82 Long term (current) use of aspirin
CPT/HCPCS: 73560

== ENCOUNTER 2025-06-18 10:45 | Outpatient (AMB) | payer OTHER, SELFPAY ==
[2025-06-18 10:55] VITALS: BMI 32.9
--- NOTE | 2025-06-18 10:55 | A.OFFVIS_ITS ---
Vital Signs 06/18/25 10:55 Height 5 ft 1 in Weight 174 lb BMI 32.9 Intake Visit Reasons: ED- RT Knee pain s/p fall 06/15/25 Intake Note: Alee is a 70 year old female who presents today for an ER follow up of right knee pain status post fall on 06/15/25. Patient presented to [facility] ER the following day, x-rays/CT were obtained and placed in a knee immobilizer. Today patient reports she is wearing her knee immobilizer to sleep and removes it at day time to walk around and stay active. Patient main complaint is knee pain around the knee, anterior of knee and radiates down to her ankle causing ankle pain. States knee only hurts when she is walking or applying pressure to knee. Denies knee giving out. She also has numbness and tingling in her toes that comes and goes. Hx of lower back pain. States she was given oxycodone at [facility] ED, reports good pain relief and would like a refill if possible. Senior Java Architect Required: Yes Senior Java Architect Services: Senior Java Architect Present Senior Java Architect Name: Rosy ID#[id number] Allergies empagliflozin (From JARDIANCE) Allergy (Intermediate, Verified 06/18/25 11:07) ITCHY/RASH dulaglutide (From Trulicity) Adverse Reaction (Intermediate, Verified 06/18/25 11:07) Abdominal Pain JARDIANCE Allergy (Intermediate, Uncoded 06/18/25 11:07) pruritus HPI Comments Details: History of Present Illness The patient is a 70-year-old female presenting for evaluation of her right knee following a fall on Sunday. She reports falling backwards while taking out the trash and was able to get up and walk up the stairs with a limp, after which her daughter called an ambulance. Since the incident, she has been able to walk slowly. She localizes the pain to the outside of her right knee and below the knee. The patient has a history of arthritis throughout the knee, which is worse on the right side. She is on Eliquis and also takes aspirin. Social History - Functional Status: The patient reports she is able to walk slowly with a limp. [facility] Medical History Diabetes mellitus, with long-term current use of insulin Class 1 obesity Atrial fibrillation Hypothyroidism Asthma Pericardial effusion Pneumonitis Pleural effusion Hypoglycemia unawareness associated with type 2 diabetes mellitus Post-surgical hypothyroidism assisted (current) use of insulin Postsurgical hypothyroidism Thyroid cancer Dyslipidemia Essential hypertension Hyperparathyroidism Vitamin D deficiency Obesity (BMI 30-39.9) Diabetes type 2, uncontrolled Surgical History Hx of colonoscopy Hx of total thyroidectomy Hx of hysterectomy Family History Father No problems noted. Mother Arthritis Social History Household Members: Family and Children Household Members Other:: 2 Housing: Apartment Do you presently have visiting nurse or other home services: Yes ([facility]) Alcohol intake: never Patient Tobacco Use Status: Never used Tobacco e-Cigarette/Vaping Use: Never Used Second Hand Smoke Exposure: No service: No Current occupational status: disabled Cognitive needs: No Hearing needs: No Vision needs: No Review of Systems Narrative Review of Systems - Musculoskeletal: Reports pain on the outside of the right knee and below the knee. - Gait: Reports limping and walking slowly. Physical Exam Exam Exam: Physical Exam - Musculoskeletal: On examination of the right knee, pain is elicited with full extension and flexion. - Musculoskeletal: Tenderness to palpation over the tibial area. Vital Signs: BMI result Body Mass Index 32.9 Assessment & Plan Assessment & Plan (1) Contusion of right knee: Code(s): S80.01XA - Contusion of right knee, initial encounter Category: Medical Plan Plan The patient's right knee pain is attributed to an exacerbation of her underlying arthritis and a probable bone bruise resulting from her recent fall. X-rays did not show an obvious fracture. She will continue Tylenol for pain management but will avoid Motrin or other NSAIDs due to her concurrent use of Eliquis. Celebrex was prescribed to be taken twice daily for two weeks as an anti-inflammatory that does not cause bleeding. A topical cream was also prescribed for her leg. She was advised to apply ice to the knee for 20 minutes every couple of hours, remain active but avoid overexertion, and was fitted for a [employer] knee brace for support. Follow-up is to call if symptoms worsen. Consent The risks, benefits, and alternatives of the proposed conservative management plan, including medications (Celebrex, topical cream), use of a knee brace, and activity modification, were discussed with the patient. The patient expressed understanding and provided verbal consent to proceed with the treatment plan. Patient was informed and verbally consented to the use of an ambient scribe for clinic note documentation during this visit. Orders: Orders XR knee RT 2V Today M25.569 - Pain in unspecified knee Medications: New celecoxib (Celebrex) 200 mg PO BID 28 caps 0RF 14 days diclofenac sodium 1% apply 4grams to affected area four times a day as needed 4 grams topical QID 100 grams 6RF 30 days Coding Level of Care Code Est Pt Level 3 (23876) Add On Problem Visit Only Diagnoses Contusion of right knee S80.01XA
== END 2025-06-18 14:37 | disposition home or self-care (01) ==
LOC: HO.HOS 10:46
PROVIDERS: PCP Internal Medicine; Visit Provider Physician Assistant
DX: S80.01XA Contusion of right knee, initial encounter (principal)
CPT/HCPCS: 99214; G2211

== ENCOUNTER → 2025-06-18 10:54 | Outpatient (BNV) | payer OTHER, SELFPAY | PROVIDERS: Visit Provider Radiology Diagnostic Radiology | DX: M17.11 Unilateral primary osteoarthritis, right knee (principal) | CPT/HCPCS: 73560 ==